=== PATIENT | female | born 1940 | race Caucasian/White ===

== ENCOUNTER → 2018-02-05 18:01 | Outpatient (CLI) | payer MEDICARE, SELFPAY ==
--- NOTE | 2018-02-05 18:01 | DT_ITS ---
This patient was seen during an EMR downtime February 05, 2018 - February 12, 2018. This patient may have a combination of paper and electronic documentation or all paper documentation. All documentation is viewable within the e-chart portion of [email or web address] for each patient visit.
[2018-02-08 17:31] LABS: Prothrombin Time (Protime)PT. 13.3 SECONDS (11.7-14.9)
== END ==
PROVIDERS: Family Provider Family Medicine; PCP Family Medicine; Visit Provider Family Medicine
DX: Z86.73 Personal history of transient ischemic attack (TIA), and cerebral infarction without residual deficits (principal)
CPT/HCPCS: 36415; 85610

== ENCOUNTER 2019-10-09 00:28 | Emergency (ER) | payer MEDICARE, SELFPAY ==
[2019-10-09 00:31] VITALS: BP 201/83; PULSE 69; RESP 13; TEMP 36.1; O2SAT 94; BMI 36.1
[2019-10-09 00:41] LABS: Bedside Glucose 49 mg/dL (70-110)
--- NOTE | 2019-10-09 00:58 | EKG12_ITS ---
Test Reason : CP Blood Pressure : / mmHG Vent. Rate : 059 BPM Atrial Rate : 059 BPM P-R Int : 190 ms QRS Dur : 096 ms QT Int : 484 ms P-R-T Axes : 082 007 059 degrees QTc Int : 479 ms Sinus bradycardia Otherwise normal ECG Confirmed by DANETTE ANDERSON ([id number]), photograph editor BILLY GILL ([id number]) on 10/11/2019 9:27:44 AM Referred By: FANG Confirmed By:DANETTE ANDERSON
--- NOTE | 2019-10-09 00:58 | RAD_ITS ---
STUDY: X-RAY CHEST REASON FOR EXAM: Female, 79 years old. HYPOGLYCEMIA -- DENIES ANY CHEST / BREATHING PROBLEMS TECHNIQUE: Single AP portable view of the chest. COMPARISON: None. FINDINGS: The lungs are clear and expanded. There is no demonstrated pleural abnormality. Normal size heart. Normal mediastinum and tony. Normal visualized pulmonary arteries. There is atherosclerotic tortuosity of the aortic arch and descending thoracic aorta. Normal visualized thoracic spine. There is degenerative osteoarthritis of the bilateral shoulders. There is a hiatal hernia measures 9 cm. RAD/Chest 1 View (Portable) IMPRESSION: There is a hiatal hernia measures 9 cm. Electronically Signed: Jassi Reddy, at 1:44 EST Tel , Service support ,
--- NOTE | 2019-10-09 00:59 | ED.DCSUM_ITS ---
History of Present Illness Chief Complaint: Hypoglycemia Narrative: Patient is a 79-year-old female who presents with low blood sugar. Son went to check on her before bed and noticed that she was not acting normally similar to when she has had hypoglycemia previously. They were unable to get her to take oral glucose so EMS was contacted. Her blood sugar was in the 40s. She received a D10 on arrival here due to a shortage of D50. She is now returning to baseline. Patient and family deny any recent illness. No recent fever, cough, vomiting, diarrhea. Patient has no complaints at this time except for generally not feeling well, generalized malaise. Past Medical History - Allergies and Home Meds Allergies/Adverse Reactions: Allergies meperidine HCl [From Demerol] Adverse Reaction (Verified 10/09/19 00:28) Nausea Primary Care Physician: Jihan Krishnamurthy [Primary Care Provider] - Past Medical History: - - Diabetes, hypertension, dementia Smoking Status: Former smoker Review of Systems All systems negative except as indicated General: Denies: Fever Eyes: Denies: Visual changes - bilaterally ENT: Denies: Bilateral ear pain Cardiovascular: Denies: Chest pain Respiratory: Denies: Dyspnea Gastrointestinal: Denies: Abdominal pain Genitourinary: Denies: Dysuria Musculoskeletal: Denies: Myalgias, Arthralgias Neurological: Denies: Headache Allergy: Denies: Uticaria Physical Exam Vital Signs/Narrative: Vital Signs Temp Pulse Resp BP Pulse Ox 10/09/19 00:31 96.9 F L 69 13 201/83 H 94 Inital Vital Signs reviewed: Yes General: Well nourished, Well developed Head: Normocephalic Eyes: EOMI ENT: Moist mucous membranes Neck: Supple Cardiovascular: Regular rate, Regular rhythm Respiratory: No distress, CTA bilaterally Abdomen: Soft, Nontender Skin: Normal color Neurological: Alert Psychological: Normal affect Diagnostic/Tx/Re-eval Impressions Chest X-Ray 10/09/19 00:58 IMPRESSION: There is a hiatal hernia measures 9 cm. Electronically Signed: Jassi Reddy, at 1:44 EST Tel , Service support , 10/09/19 00:58 Chest 1 View (Portable) [RAD] Stat Laboratory Results 10/09/19 10/09/19 10/09/19 00:33 00:45 00:45 WBC Cancelled Corrected WBC Cancelled RBC Cancelled Hgb Cancelled Hct Cancelled MCV Cancelled MCH Cancelled MCHC Cancelled RDW Std Deviation Cancelled RDW Coeff of Michael Cancelled Plt Count Cancelled MPV Cancelled Immature Gran % (Auto) Cancelled Neut % (Auto) Cancelled Lymph % (Auto) Cancelled [place] % (Auto) Cancelled Eos % (Auto) Cancelled Baso % (Auto) Cancelled Absolute Neuts (auto) Cancelled Absolute Lymphs (auto) Cancelled Total Counted Cancelled Neutrophils % (Manual) Cancelled Band Neutrophils % Cancelled Lymphocytes % (Manual) Cancelled Monocytes % (Manual) Cancelled Eosinophils % (Manual) Cancelled Basophils % (Manual) Cancelled Metamyelocytes % Cancelled Myelocytes % Cancelled Promyelocytes % Cancelled Blast Cells % Cancelled Plasma Cell % (Manual) Cancelled Other Cells % Cancelled Nucleated RBC % Cancelled Nucleated RBCs/100 WBC Cancelled Differential Comment Cancelled Diff Path Review Cancelled Hypersegmented Neuts Cancelled Atypical Lymphocytes Cancelled Reactive Lymphocytes Cancelled Smudge Cells Cancelled Toxic Granulation Cancelled Toxic Vacuolation Cancelled Dohle Bodies Cancelled Adan Rods Cancelled Platelet Estimate Cancelled Plt Morphology Comment Cancelled RBC Morphology Cancelled Polychromasia Cancelled Hypochromasia Cancelled Poikilocytosis Cancelled Basophilic Stippling Cancelled Anisocytosis Cancelled Microcytosis Cancelled Macrocytosis Cancelled Spherocytes Cancelled Sickle Cells Cancelled Target Cells Cancelled Tear Drop Cells Cancelled Ovalocytes Cancelled Stomatocytes Cancelled Ann-[place] Bodies Cancelled Kelsey Cells Cancelled Bite Cells Cancelled Crenated Cell Cancelled Acanthocytes (Spur) Cancelled Rouleaux Cancelled Schistocytes Cancelled Sodium Cancelled Potassium Cancelled Chloride Cancelled Carbon Dioxide Cancelled Anion Gap Cancelled BUN Cancelled Creatinine Cancelled Estim Creat Clear Calc Cancelled Est GFR (MDRD) Af Amer Cancelled Est GFR (MDRD) Non-Af Cancelled BUN/Creatinine Ratio Cancelled Glucose Cancelled Calcium Cancelled Urine Color Urine Clarity Urine pH Ur Specific [place] Urine Protein Urine Glucose (UA) Urine Ketones Urine Occult Blood Urine Nitrite Urine Bilirubin Urine Urobilinogen Ur Leukocyte Esterase Urine RBC Urine WBC Ur Squamous Epith Cells Amorphous Sediment Urine Bacteria Urine Mucus POC Glucose 49 L 10/09/19 10/09/19 10/09/19 01:18 01:37 01:37 WBC 13.4 H Corrected WBC RBC 5.21 Hgb 12.3 Hct 39.7 MCV 76.2 L MCH 23.6 L MCHC 31.0 L RDW Std Deviation 50.9 H RDW Coeff of Michael 18.6 H Plt Count 263 MPV 11.4 Immature Gran % (Auto) 0.800 Neut % (Auto) 82.4 H Lymph % (Auto) 10.0 L [place] % (Auto) 5.7 Eos % (Auto) 0.7 Baso % (Auto) 0.4 Absolute Neuts (auto) 11.0 H Absolute Lymphs (auto) 1.34 Total Counted Neutrophils % (Manual) Band Neutrophils % Lymphocytes % (Manual) Monocytes % (Manual) Eosinophils % (Manual) Basophils % (Manual) Metamyelocytes % Myelocytes % Promyelocytes % Blast Cells % Plasma Cell % (Manual) Other Cells % Nucleated RBC % 0 Nucleated RBCs/100 WBC Differential Comment Diff Path Review Hypersegmented Neuts Atypical Lymphocytes Reactive Lymphocytes Smudge Cells Toxic Granulation Toxic Vacuolation Dohle Bodies Adan Rods Platelet Estimate Plt Morphology Comment RBC Morphology Polychromasia Hypochromasia Poikilocytosis Basophilic Stippling Anisocytosis Microcytosis Macrocytosis Spherocytes Sickle Cells Target Cells Tear Drop Cells Ovalocytes Stomatocytes Ann-[place]akey Bodies Kelsey Cells Bite Cells Crenated Cell Acanthocytes (Spur) Rouleaux Schistocytes Sodium 137 Potassium 3.5 Chloride 104 Carbon Dioxide 26.0 Anion Gap 7 BUN 25 H Creatinine 1.27 H Estim Creat Clear Calc 27.10 Est GFR (MDRD) Af Amer 52 L Est GFR (MDRD) Non-Af 43 L BUN/Creatinine Ratio 19.7 Glucose 165 H Calcium 9.2 Urine Color Urine Clarity Urine pH Ur Specific [place] Urine Protein Urine Glucose (UA) Urine Ketones Urine Occult Blood Urine Nitrite Urine Bilirubin Urine Urobilinogen Ur Leukocyte Esterase Urine RBC Urine WBC Ur Squamous Epith Cells Amorphous Sediment Urine Bacteria Urine Mucus POC Glucose 179 H 10/09/19 01:52 WBC Corrected WBC RBC Hgb Hct MCV MCH MCHC RDW Std Deviation RDW Coeff of Michael Plt Count MPV Immature Gran % (Auto) Neut % (Auto) Lymph % (Auto) [place] % (Auto) Eos % (Auto) Baso % (Auto) Absolute Neuts (auto) Absolute Lymphs (auto) Total Counted Neutrophils % (Manual) Band Neutrophils % Lymphocytes % (Manual) Monocytes % (Manual) Eosinophils % (Manual) Basophils % (Manual) Metamyelocytes % Myelocytes % Promyelocytes % Blast Cells % Plasma Cell % (Manual) Other Cells % Nucleated RBC % Nucleated RBCs/100 WBC Differential Comment Diff Path Review Hypersegmented Neuts Atypical Lymphocytes Reactive Lymphocytes Smudge Cells Toxic Granulation Toxic Vacuolation Dohle Bodies Adan Rods Platelet Estimate Plt Morphology Comment RBC Morphology Polychromasia Hypochromasia Poikilocytosis Basophilic Stippling Anisocytosis Microcytosis Macrocytosis Spherocytes Sickle Cells Target Cells Tear Drop Cells Ovalocytes Stomatocytes Ann-Leakey Bodies [place] Cells Bite Cells Crenated Cell Acanthocytes (Spur) Rouleaux Schistocytes Sodium Potassium Chloride Carbon Dioxide Anion Gap BUN Creatinine Estim Creat Clear Calc Est GFR (MDRD) Af Amer Est GFR (MDRD) Non-Af BUN/Creatinine Ratio Glucose Calcium Urine Color Yellow Urine Clarity Clear Urine pH 6.5 Ur Specific [place] 1.010 Urine Protein 15 H Urine Glucose (UA) 100 H Urine Ketones Negative Urine Occult Blood 10 H Urine Nitrite Negative Urine Bilirubin Negative Urine Urobilinogen Normal Ur Leukocyte Esterase Negative Urine RBC 0-5 SEEN Urine WBC 0-5 SEEN Ur Squamous Epith Cells 0-5 SEEN Amorphous Sediment 1+ Urine Bacteria 0 SEEN Urine Mucus 0 SEEN POC Glucose - Medical Decision Making Patient was given D10 on arrival here. On reevaluation she is alert, answering questions appropriately and at baseline. EKG shows sinus bradycardia at a rate of 59. CBC BMP essentially unremarkable. Urinalysis does not show evidence of infection chest x-ray shows a hiatal hernia otherwise normal. Patient will be fed here. Initial repeat glucose normal. We will repeat glucose once prior to discharge after she is fed. Incidentally she does have severely elevated blood pressure here but is asymptomatic with this. Patient and family advised of the need to follow-up regarding blood pressure and hyperglycemia. They understand to return for new or worsening symptoms and patient was discharged. ED Disposition - Plan for ED Patient: Disposition: Home or Assisted Living Diagnosis: Hypoglycemia, Hypertension Instructions: HYPOGLYCEMIA, Oral Diabetic Medicine, HYPERTENSION, Established, Out of Control Referrals: Jihan Krishnamurthy [Primary Care Provider] -
[2019-10-09] MEDS: Dextrose 10%-Water 250 ML 999 ML IV (01:19)
[2019-10-09 01:31] LABS: Bedside Glucose 179 mg/dL (70-110)
[2019-10-09 01:45] LABS: Absolute Lymphocyte Count 1.34 X10^3/uL (0.83-4.51); Basophil# 0.06 X10^3/uL; Basophil% 0.4 % (0-1); Eosinophils% 0.7 % (0-5); Hematocrit 39.7 % (37-47); Hemoglobin 12.3 g/dL (12.0-15.0); Lymphocyte # 1.34 X10^3/ul (4.0); Mean Corpuscular Hgb 23.6 pg (27.0-32.0); Mean Corpuscular Volume 76.2 fL (81-99); Mean Platelet Vol. 11.4 fl (6.2-12.0); Monocyte# 0.76 X10^3/uL; Monocyte% 5.7 % (0-10); NRBC Flagged by Analyzer 0 % (0-5); Neutrophil # 11.02 X10^3/uL (2.7-7.7); Neutrophil % 82.4 % (47-70); Platelet Count 263 K/mm3 (150-450); RBC Distribution Width CV 18.6 % (11.6-14.6); RBC Distribution Width SD 50.9 fl (35.1-43.9); Red Blood Count 5.21 M/mm3 (4.2-5.4); White Blood Count 13.4 K/mm3 (4.4-11.0)
[2019-10-09 01:58] LABS: Bacteria 0 SEEN /hpf (None Seen); Mucous, Urine 0 SEEN /hpf (<or=2+)
[2019-10-09 02:00] LABS: Anion Gap 7 (5-15); BUN 25 mg/dL (7-18); BUN/Creat Ratio 19.7 RATIO (10-20); Calcium,Total 9.2 mg/dL (8.5-10.1); Chloride 104 mmol/L (98-107); Creatinine, Serum 1.27 mg/dL (0.55-1.02); EST Glomerular Filtration Rate 43 mL/min (>60); Est Glom Filt Rate - Afr Amer 52 mL/min (>60); Glucose 165 mg/dL (74-106); Potassium 3.5 mmol/L (3.5-5.1); Sodium Level 137 mmol/L (136-145)
[2019-10-09 02:01] LABS: Color, Urine Yellow (Yellow); Glucose, Dipstick 100 mg/dl (Normal); Ketone-Dipstick Negative (Negative); Leukocyte Esterase-Dipstick Negative /ul (Negative); Nitrite-Dipstick Negative (Negative); Occult Blood-Urine 10 /ul (Negative); Protein-Dipstick 15 mg/dl (Negative); Urine Bilirubin Dipstick Negative (Negative); Urine Clarity Clear (Clear); Urine Urobilinogen Normal (Normal); Urine pH 6.5 (5.0 - 8.0)
[2019-10-09 02:07] LABS: Amorphous Sediment 1+; Red Blood Cells-Urine 0-5 SEEN /hpf (0-5); Squamous Epithelial Cells - UA 0-5 SEEN /hpf (5-10); White Blood Cells 0-5 SEEN /hpf (0-5)
[2019-10-09 02:34] VITALS: BP 216/105; PULSE 70; RESP 21; O2SAT 98
[2019-10-09 03:01] LABS: Bedside Glucose 182 mg/dL (70-110)
[2019-10-09 03:19] VITALS: BP 203/83; PULSE 74; RESP 18; O2SAT 97
--- NOTE | 2019-10-09 03:20 | ED.RN ---
PT GIVEN WRITTEN AND VERBAL DISCHARGE INSTRUCTIONS AND HOME GOING PAPERWORK. PT DAUGHTER IN LAW VERBALIZES UNDERSTANDING. BP ELEVATED, DR. BRICENO AWARE. FAMILY EDUCATED TO FOLLOW UP WITH PRIMARY CARE REGARDING BP. PT IVS D/C AND COVERED WITH 2X2 GAUZE AND PAPER TAPE. ASSISTED IN DRESSING BY THIS RN AND PLACED IN WHEELCHAIR. WHEELED TO FAMILY VEHICLE.
== END 2019-10-09 03:21 | disposition home or self-care (01) ==
PROVIDERS: Emergency Provider Emergency Medicine; PCP Family Medicine
DX: E11.649 Type 2 diabetes mellitus with hypoglycemia without coma (principal); I10 Essential (primary) hypertension; F03.90 Unspecified dementia, unspecified severity, without behavioral disturbance, psychotic disturbance, mood disturbance, and anxiety; K44.9 Diaphragmatic hernia without obstruction or gangrene; Z88.5 Allergy status to narcotic agent; Z79.01 Long term (current) use of anticoagulants; Z79.4 Long term (current) use of insulin; Z79.899 Other long term (current) drug therapy; Z87.891 Personal history of nicotine dependence
CPT/HCPCS: 36415; 71045; 80048; 81001; 82962; 85025; 93005; 96374; 99285; A4216

== ENCOUNTER → 2020-05-20 13:11 | Outpatient (CLI) | payer MEDICARE, SELFPAY ==
[2020-05-20 18:25] LABS: Glucose, Dipstick Normal (Normal); Ketone-Dipstick Negative (Negative); Leukocyte Esterase-Dipstick 500 /ul (Negative); Nitrite-Dipstick Positive (Negative); Occult Blood-Urine 25 /ul (Negative); Protein-Dipstick 30 mg/dl (Negative); Specific Gravity, Urine 1.015 (1.002-1.030); Urine Bilirubin Dipstick Negative (Negative); Urine Urobilinogen Normal (Normal)
[2020-05-20 18:50] LABS: Color, Urine Yellow (Yellow); Urine Clarity Cloudy (Clear)
== END ==
PROVIDERS: PCP Family Medicine; Referring Provider Family Medicine; Visit Provider Family Medicine
DX: E10.9 Type 1 diabetes mellitus without complications (principal); Z87.440 Personal history of urinary (tract) infections; Z79.2 Long term (current) use of antibiotics; Z79.899 Other long term (current) drug therapy
CPT/HCPCS: 81002; 87077; 87086; 87088; 87186

== ENCOUNTER 2021-05-14 16:42 | Inpatient (IN) | payer MEDICARE, SELFPAY ==
[2021-05-14 16:43] VITALS: BP 161/76; PULSE 97; RESP 25; TEMP 37.6; O2SAT 93; BMI 31.6
--- NOTE | 2021-05-14 16:55 | EX.ED.DYSGE1 ---
HPI History of Present Illness Chief Complaint: General Illness Informant: patient and family Onset/Context/Timing Onset: Today (Unable to sit up and urinary frequency) Context: Sudden Onset Timing: Continuous Quality: Generalized weakness Per granddaughter Location: Generalized and Current Severity: Mild Maximum Severity: Mild Worsened by: Nothing Relieved by: Nothing Associated Symptoms Associated Symptoms: Frequency only and unable to sit up Narrative Narrative: Patient is an elderly woman with mild dementia who was brought to the emergency department by family because of inability to sit up which is abnormal for her and urinary frequency. She has had urinary tract infections in the past. She saw her primary care doctor 2 weeks ago and no abnormalities or abnormal tests were noted. Patient is on a anticoagulant due to DVT after orthopedic surgery 1 year ago. She also has history of GERD, hypertension and type 1 diabetes. Patient voices no complaints. Prior similar symptoms: Yes Recent Illness/Hospitalization: No [facility], [facility] Medical History (Updated 05/14/21 @ 19:[address] Vishal Rivas MD) 23-polyvalent pneumococcal polysaccharide vaccine indication of diabetes in patient 6 to 64 years of age Cholecystitis Dementia DVT (deep venous thrombosis) Home Medications Centrum Silver Tablet 1 tab PO DAILY 12/23/15 [History Last Taken Unknown] citalopram 40 mg PO DAILY 12/23/15 [History Last Taken Unknown] ibuprofen 600 mg PO 4X/DAY PRN 12/23/15 [History Last Taken Unknown] insulin glargine [Lantus (BKC)] 18 units SUBCUT QHS 12/23/15 [History Last Taken Unknown] insulin lispro [Humalog KwikPen] 18 unit SQ TID 12/23/15 [History Last Taken Unknown] lisinopril 20 mg PO DAILY 12/23/15 [History Last Taken Unknown] metoprolol tartrate 50 mg PO DAILY 12/23/15 [History Last Taken Unknown] apixaban 5 mg PO DAILY 10/09/19 [History Last Taken Unknown] oxybutynin chloride 10 mg PO DAILY 10/09/19 [History Last Taken Unknown] pantoprazole 40 mg PO DAILY 10/09/19 [History Last Taken Unknown] Allergy/AdvReac Type Severity Reaction Status Date / Time morphine Allergy Itching Verified 05/14/21 16:49 meperidine HCl [From Demerol] AdvReac Nausea Verified 05/14/21 16:49 Surgical History History of hip surgery History of total knee arthroplasty S/P cholecystectomy Social History (Updated 05/14/21 @ 16:[address] Vishal Rivas MD) household members: family Smoking Status: Former smoker alcohol intake: current Alcohol type: other substance use type: does not use ROS ROS ED Constitutional Constitutional ED: Denies chills, fever(s), subjective or sweats Eyes Eyes: Denies blurry vision, change in vision or diplopia ENT ENT ED: Denies ear pain, rhinorrhea or sore throat Cardiovascular Cardiovascular: Denies chest pain, orthopnea, palpitations or racing heartbeat Respiratory/Chest Respiratory/Chest: Denies cough, dyspnea, dyspnea on exertion, orthopnea or sputum Gastrointestinal Gastrointestinal: Reports nausea; Denies abdominal pain, constipation, diarrhea or vomiting Genitourinary Genitourinary ED: Reports urinary frequency; Denies dysuria or hematuria Musculoskeletal Musculoskeletal: Denies arthralgias, myalgias or neck pain Integumentary Denies rash Neurologic Neurologic: Reports weakness; Denies headache(s) or paresthesias Allergic/Immunologic Allergic/Immunologic ED: Denies mouth swelling, tongue swelling or urticaria EXAM Physical Exam Const Vital Signs: 05/14/21 16:43 05/14/21 17:39 05/14/21 18:44 Temperature 99.7 F H Temperature Source Oral Pulse Rate 97 79 Respiratory Rate 25 H 17 Respiratory Pattern Normal Blood Pressure 161/76 H 143/69 H Blood Pressure Mean 104 93 Pulse Ox 93 97 Oxygen Delivery Method Room Air Room Air Positive well nourished, well developed and obese General Appearance ED: well developed and NAD; Negative for cyanotic, diaphoretic or pallor Nutritional Appearance: obese HEENT Reports TM's clear and moist mucous membranes HEENT Narrative: Atraumatic normocephalic. Ears normal. Nares patent. Tympanic Membrane ED: Yes TM's clear Eyes PERRL and EOMs intact bilaterally General Eye ED: Negative for pale conjunctiva or scleral icterus Neck no lymphadenopathy, supple and no JVD Chest Wall inspection of chest normal Resp normal respiratory effort and clear to auscultation bilaterally Effort and Inspection: Negative for pain with movement Cardio regular rate, regular rhythm, S1 normal heart sound, S2 normal heart sound and no murmurs GI normal to inspection, nondistended, normoactive bowel sounds and non-tender Palpation: soft Back/Spine no CVA tenderness Cervical Spine: Negative for cervical spine tenderness Thoracic Spine / Upper Back: Negative for thoracic spinal tenderness or paraspinal muscle tenderness Extremity Negative for normal to inspection General Extremety ED: Negative for edema or tenderness General Extremity: Negative for edema Neuro No oriented x3, CN's II-XII intact bilaterally and no sensory deficits noted Neuro Narrative: Patient knew the month but not the year. Sensorium / Orientation: alert Motor Exam: strength 5/5 throughout Psych mental status grossly normal Skin no rashes or lesions noted and no wounds General Skin Exam: Negative for jaundice or pallor MDM MDM MDM Narrative Medical decision making narrative: 99.7 is a fever for an 81-year-old. She is tachypneic. With history of generalized weakness and frequency suspect UTI. Infectious work-up was initiated as well as metabolic. Will obtain straight catheter urine. BGT was obtained per nurse protocol. Lab Data Attestation: I reviewed the patient's lab results. Lab results narrative: White count is markedly elevated 24.8 thousand with shift. Comprehensive metabolic panel bill slight elevation in creatinine of 1.17. Glucose elevated 188. Patient does have type 1 diabetes. Lactate is normal. Urine is unremarkable however patient did urinate every 15 to 30 minutes and may give a false negative test. In light of her having an elevated white count generalized weakness with change in mental status and frequency suspect that her sources urine. Will treat with Rocephin. Urine culture was obtained. Hospitalist was paged for admission. Labs: Laboratory Results - last 24 hr 05/14/21 05/14/21 05/14/21 16:25 16:25 16:51 WBC 24.8 H RBC 5.20 Hgb 12.9 Hct 39.9 MCV 76.7 L MCH 24.8 L MCHC 32.3 RDW Std Deviation 50.1 H RDW Coeff of Michael 18.5 H Plt Count 224 MPV 11.7 Immature Gran % (Auto) 1.800 H Neut % (Auto) 89.8 H Lymph % (Auto) 3.3 L [place] % (Auto) 4.9 Eos % (Auto) 0.0 Baso % (Auto) 0.2 Absolute Neuts (auto) 22.3 H Absolute Lymphs (auto) 0.81 L Nucleated RBC % 0 Differential Comment SCANNED Sodium 134 L Potassium 3.4 L Chloride 102 Carbon Dioxide 26.0 Anion Gap 6 BUN 20 H Creatinine 1.17 H Estim Creat Clear Calc 29.83 Est GFR (MDRD) Af Amer 57 L Est GFR (MDRD) Non-Af 47 L BUN/Creatinine Ratio 17.1 Glucose 188 H Lactic Acid Calcium 9.1 Total Bilirubin 0.60 AST 14 L ALT 16 Alkaline Phosphatase 105 Total Protein 7.7 Albumin 3.1 L Globulin 4.6 H Albumin/Globulin Ratio 0.7 L Urine Color Urine Clarity Urine pH Ur Specific [place] Urine Protein Urine Glucose (UA) Urine Ketones Urine Occult Blood Urine Nitrite Urine Bilirubin Urine Urobilinogen Ur Leukocyte Esterase Urine RBC Urine WBC Ur Squamous Epith Cells Urine Bacteria Urine Mucus POC Glucose 181 H 05/14/21 05/14/21 16:55 17:03 WBC RBC Hgb Hct MCV MCH MCHC RDW Std Deviation RDW Coeff of Michael Plt Count MPV Immature Gran % (Auto) Neut % (Auto) Lymph % (Auto) [place] % (Auto) Eos % (Auto) Baso % (Auto) Absolute Neuts (auto) Absolute Lymphs (auto) Nucleated RBC % Differential Comment Sodium Potassium Chloride Carbon Dioxide Anion Gap BUN Creatinine Estim Creat Clear Calc Est GFR (MDRD) Af Amer Est GFR (MDRD) Non-Af BUN/Creatinine Ratio Glucose Lactic Acid 1.3 Calcium Total Bilirubin AST ALT Alkaline Phosphatase Total Protein Albumin Globulin Albumin/Globulin Ratio Urine Color Straw Urine Clarity Clear Urine pH 7.0 Ur Specific [place] 1.010 Urine Protein 15 H Urine Glucose (UA) 100 H Urine Ketones Negative Urine Occult Blood 25 H Urine Nitrite Negative Urine Bilirubin Negative Urine Urobilinogen Normal Ur Leukocyte Esterase 25 H Urine RBC 0-5 SEEN Urine WBC 0-5 SEEN Ur Squamous Epith Cells 0-5 SEEN Urine Bacteria RARE Urine Mucus 0 SEEN POC Glucose Discharge Plan Triage Chief Complaint: General Illness ED Provider: Vishal Rivas Dx/Rx/DC Orders Clinical Impression: Infectious encephalopathy, Urinary tract infection Prescriptions: No Action lisinopril 20 MG tablet 20 mg PO DAILY RF: 0 ibuprofen 600 MG tablet 600 mg PO 4X/DAY PRN (Reason: Pain) RF: 0 citalopram 40 MG tablet 40 mg PO DAILY RF: 0 metoprolol tartrate 25 MG tablet 50 mg PO DAILY RF: 0 Centrum Silver Tablet 1 tab PO DAILY RF: 0 insulin glargine [Lantus Solostar U-100 Insulin] 100 UNITS/ML Pen 18 units subcut QHS RF: 0 insulin lispro [Humalog KwikPen Insulin] 100 UNIT/ML Insuln.Pen 18 unit SQ TID RF: 0 pantoprazole 40 MG tablet,delayed release (DR/EC) 40 mg PO DAILY RF: 0 oxybutynin chloride 5 MG tablet 10 mg PO DAILY RF: 0 apixaban 5 MG tablet 5 mg PO DAILY RF: 0 Primary Care Provider: Jihan Krishnamurthy Referrals: Jihan Krishnamurthy DO [Primary Care Provider] - Disposition Disposition: Acute Care Hospital [facility]
[2021-05-14 16:56] LABS: Bedside Glucose 181 mg/dL (70-110)
[2021-05-14 17:24] LABS: Absolute Lymphocyte Count 0.81 X10^3/uL (0.83-4.51); Absolute Neutrophil Count 22.3 X10^3/uL (2.0-7.7); Basophil# 0.05 X10^3/uL; Basophil% 0.2 % (0-1); Hematocrit 39.9 % (37-47); Hemoglobin 12.9 g/dL (12.0-15.0); Lymphocyte # 0.81 X10^3/ul (0.83-4.51); Lymphocyte % 3.3 % (19-41); Mean Corp Hgb Conc 32.3 g/dL (32-36); Mean Corpuscular Hgb 24.8 pg (27.0-32.0); Mean Corpuscular Volume 76.7 fL (81-99); Mean Platelet Vol. 11.7 fl (6.2-12.0); Monocyte# 1.21 X10^3/uL; Monocyte% 4.9 % (0-10); NRBC Flagged by Analyzer 0 % (0-5); Neutrophil # 22.28 X10^3/uL (2.7-7.7); Neutrophil % 89.8 % (47-70); POSITIVE DIFFERENTIAL YES; Platelet Count 224 K/mm3 (150-450); RBC Distribution Width CV 18.5 % (11.6-14.6); RBC Distribution Width SD 50.1 fl (35.1-43.9); White Blood Count 24.8 K/mm3 (4.4-11.0)
[2021-05-14 17:26] LABS: Differential Indicated SCAN CRITERIA MET
[2021-05-14 17:33] LABS: Color, Urine Straw (Yellow); Glucose, Dipstick 100 mg/dl (Normal); Ketone-Dipstick Negative (Negative); Leukocyte Esterase-Dipstick 25 /ul (Negative); Mucous, Urine 0 SEEN /hpf (<or=2+); Nitrite-Dipstick Negative (Negative); Occult Blood-Urine 25 /ul (Negative); Protein-Dipstick 15 mg/dl (Negative); Urine Bilirubin Dipstick Negative (Negative); Urine Clarity Clear (Clear); Urine Urobilinogen Normal (Normal)
[2021-05-14 17:39] LABS: ALB/GLOB Ratio 0.7 RATIO (0.9-2.4); AST(SGOT) 14 U/L (15-37); Alanine Aminotransfer ALT/SGPT 16 U/L (13-56); Albumin, Serum 3.1 g/dL (3.2-5.0); Alkaline Phosphatase 105 U/L (45-117); Anion Gap 6 (5-15); BUN 20 mg/dL (7-18); BUN/Creat Ratio 17.1 RATIO (10-20); Calcium,Total 9.1 mg/dL (8.5-10.1); Chloride 102 mmol/L (98-107); Creatinine, Serum 1.17 mg/dL (0.55-1.02); EST Glomerular Filtration Rate 47 mL/min (>60); Est Glom Filt Rate - Afr Amer 57 mL/min (>60); Estimated Creatinine Clearance 29.83 ml/min; Globulin 4.6 g/dL (2.2-4.2); Glucose 188 mg/dL (74-106); Potassium 3.4 mmol/L (3.5-5.1); Protein, Total 7.7 g/dL (6.4-8.2); Sodium Level 134 mmol/L (136-145)
[2021-05-14 17:45] LABS: Red Blood Cells-Urine 0-5 SEEN /hpf (0-5); White Blood Cells 0-5 SEEN /hpf (0-5)
[2021-05-14 17:46] LABS: Bacteria RARE /hpf (None Seen); Squamous Epithelial Cells - UA 0-5 SEEN /hpf (5-10)
[2021-05-14 17:58] LABS: Differential Comment SCANNED
[2021-05-14 18:10] LABS: Lactic Acid 1.3 mmol/L (0.4-1.9)
[2021-05-14 18:44] VITALS: BP 143/69; PULSE 79; RESP 17; O2SAT 97
[2021-05-14] MEDS: Ceftriaxone 1 GM/50 ML BAG IV (20:27)
[2021-05-14 20:28] VITALS: BP 143/69; PULSE 87; RESP 15; TEMP 36.8; O2SAT 96
--- NOTE | 2021-05-14 20:59 | HP.PCM.HOS_ITS ---
HPI - General General Date of Admission: 05/14/21 HPI Narrative ESMER ZAPATA, is a 81 F who presents from home with worsening confusion. She is unable to provide any significant history most of the history was obtained through chart review and discussion with the family was at bedside. The ohabgwnu-xm-juz states that she is normally independent with some assistance at home but today had difficulty interacting with Occupational Therapy and physical therapy and as the day progressed she seemed to be getting weaker and weaker and then this evening she tried to sit her up and she just fell back onto the couch. She also noticed that she has been urinating much more frequently today which is the same thing that happened on her previous UTIs. No fevers or chills but in the ER she was found to have a leukocytosis of 24.8. UA is unimpressive however the thought is that she has been urinating so frequently that she has been sort of washing herself out, UA with only 25 leukocyte esterase and rare bacteria. Urine culture was obtained in the ER and she was given a dose of Rocephin. [facility] Medical History (Updated 05/14/21 @ 19:[address] Vishal Rivas MD) 23-polyvalent pneumococcal polysaccharide vaccine indication of diabetes in patient 6 to 64 years of age Cholecystitis Dementia DVT (deep venous thrombosis) Home Medications insulin glargine [Lantus (BKC)] 18 units SUBCUT QHS 12/23/15 [History Last Taken 05/13/21] insulin lispro [Humalog KwikPen] 18 unit SQ TIDCM 12/23/15 [History Last Taken 05/14/21] lisinopril 20 mg PO DAILY 12/23/15 [History Last Taken 05/14/21] apixaban 5 mg PO DAILY 10/09/19 [History Last Taken 05/14/21] metoprolol succinate 50 mg PO DAILY 05/14/21 [History Last Taken 05/14/21] osquirlq-eycbkio-mivx-lutein [Centrum Silver Ultra Women's] 1 tab PO DAILY 05/14/21 [History Last Taken 05/14/21] omeprazole 40 mg PO BID 05/14/21 [History Last Taken 05/14/21] quetiapine 25 mg PO QHS 05/14/21 [History Last Taken 05/13/21] Allergy/AdvReac Type Severity Reaction Status Date / Time morphine Allergy Itching Verified 05/14/21 16:49 meperidine HCl [From Demerol] AdvReac Nausea Verified 05/14/21 16:49 Family History (Updated 05/14/21 @ 21:[address] Paco Coombs MD) Other Diabetes Heart disease Surgical History History of hip surgery History of total knee arthroplasty S/P cholecystectomy Social History (Updated 05/14/21 @ 16:[address] Vishal Rivas MD) household members: family Smoking Status: Former smoker alcohol intake: current Alcohol type: other substance use type: does not use ROS Constitutional Constitutional: Denies chills, fatigue, fever(s) or malaise Eyes Eyes: Denies blurry vision ENT HEENT: Denies headache(s) or nasal discharge Cardiovascular Cardiovascular: Denies chest pain, dyspnea on exertion or syncope Respiratory/Chest Respiratory/Chest: Denies cough, shortness of breath at rest or shortness of breath with exertion Gastrointestinal Gastrointestinal: Reports abdominal pain; Denies constipation, diarrhea, nausea or vomiting Genitourinary Genitourinary: Reports urinary frequency; Denies dysuria Neurologic Neurologic: Denies focal weakness, numbness or tremor(s) Psychiatric Psychiatric: Denies anxiety or depression Vital Signs Vital Signs Vital Signs: 05/14/21 16:43 05/14/21 17:39 05/14/21 18:44 Temperature 99.7 F H Temperature Source Oral Pulse Rate 97 79 Respiratory Rate 25 H 17 Respiratory Pattern Normal Blood Pressure 161/76 H 143/69 H Blood Pressure Mean 104 93 Pulse Ox 93 97 Oxygen Delivery Method Room Air Room Air 05/14/21 20:28 Temperature 98.3 F Temperature Source Temporal Pulse Rate 87 Respiratory Rate 15 Respiratory Pattern Blood Pressure 143/69 H Blood Pressure Mean 93 Pulse Ox 96 Oxygen Delivery Method Room Air Weight Weight: 173 lb 1.006 oz Body Mass Index (BMI) 31.6 Physical Exam Const alert, oriented x3 and no apparent distress General Appearance: cooperative HEENT normocephalic and moist oral mucous membranes Eyes PERRL, EOMs intact bilaterally and conjunctivae normal Neck supple and no JVD Resp normal respiratory effort, no retractions, no use of accessory muscles and clear to auscultation bilaterally Auscultation: Negative for crackles, rales, rhonchi or wheezes Cardio regular rate, regular rhythm, S1 normal heart sound, S2 normal heart sound and no murmurs GI soft to palpation and non-distended; Negative for hepatosplenomegaly Palpation: tender LLQ and RLQ Extremity no clubbing, cyanosis or edema Skin no rashes or lesions noted Neuro no focal motor deficits and no sensory deficits noted Psych affect normal Appearance: appropriate Results Lab / Micro Data Result Diagrams: 05/14/21 16:25 05/14/21 16:25 Labs: Laboratory Results - last 24 hr 05/14/21 16:25: WBC 24.8 H, RBC 5.20, Hgb 12.9, Hct 39.9, MCV 76.7 L, MCH 24.8 L , MCHC 32.3, RDW Std Deviation 50.1 H, RDW Coeff of Michael 18.5 H, Plt Count 224, MPV 11.7, Immature Gran % (Auto) 1.800 H, Neut % (Auto) 89.8 H, Lymph % (Auto) 3.3 L, [place] % (Auto) 4.9, Eos % (Auto) 0.0, Baso % (Auto) 0.2, Absolute Neuts (auto) 22.3 H, Absolute Lymphs (auto) 0.81 L, Nucleated RBC % 0, Differential Comment SCANNED 05/14/21 16:25: Sodium 134 L, Potassium 3.4 L, Chloride 102, Carbon Dioxide 26.0, Anion Gap 6, BUN 20 H, Creatinine 1.17 H, Estim Creat Clear Calc 29.83, Est GFR (MDRD) Af Amer 57 L, Est GFR (MDRD) Non-Af 47 L, BUN/Creatinine Ratio 17.1, Glucose 188 H, Calcium 9.1, Total Bilirubin 0.60, AST 14 L, ALT 16, Alkaline Phosphatase 105, Total Protein 7.7, Albumin 3.1 L, Globulin 4.6 H, Albumin/Globulin Ratio 0.7 L 05/14/21 16:51: POC Glucose 181 H 05/14/21 16:55: Urine Color Straw, Urine Clarity Clear, Urine pH 7.0, Ur Specific [place] 1.010, Urine Protein 15 H, Urine Glucose (UA) 100 H, Urine Ketones Negative, Urine Occult Blood 25 H, Urine Nitrite Negative, Urine Bilirubin Negative, Urine Urobilinogen Normal, Ur Leukocyte Esterase 25 H, Urine RBC 0-5 SEEN, Urine WBC 0-5 SEEN, Ur Squamous Epith Cells 0-5 SEEN, Urine Bacteria RARE, Urine Mucus 0 SEEN 05/14/21 17:03: Lactic Acid 1.3 Assessment & Plan Assessment/Plan (1) Infectious encephalopathy: (2) Urinary tract infection: PLAN: 1. Metabolic encephalopathy secondary to UTI/dementia -Urine cultures pending, will continue with Rocephin -Does have baseline dementia so we will continue with her Seroquel for any owning at night -PT/OT for evaluation of possible placement -Family will discuss whether or not for her to get the [place] & [place] vaccine prior to discharge 2. HTN/HLD -Blood pressure stable -We will continue with her lisinopril and metoprolol 3. DM2 -Blood sugars are stable, will continue with her home insulin -Accu-Cheks AC at bedtime with sliding scale insulin -Carb controlled diet 4. GERD -Stable -Continue with PPI 5. History of DVT post orthopedic surgery -This happened about a year ago -Continue with Eliquis, recommend following up with hematology as an outpatient for possible cessation of anticoagulation as it is likely provoked DVT: Eliquis Charges/Coding Visit Charges OBSV E&M: 74412 Initial observation care L3
[2021-05-14] MEDS: Ondansetron 4 MG/2 ML Vial IV (21:00)
[2021-05-14 21:03] VITALS: TEMP 37.6
--- NOTE | 2021-05-14 21:05 | ED.RN ---
FAMILY CAME TO THE NURSES STATION AND NOTIFIED STAFF THE PT WAS CHOKING ON HER FOOD. THIS NURSE INTO THE ROOM PT HAD VOMITED. PT C/O FEELING NAUSEATED. FAMILY NOTIFIED TO NOT GIVE THE PT ANYTHING FURTHER TO EAT OR DRINK. DR SANTOS HERRMANN ORDER OBTAINED AND GIVEN
[2021-05-14 22:19] VITALS: BMI 31.1
[2021-05-14 22:21] VITALS: BP 156/61; PULSE 99; RESP 18; TEMP 38.1; O2SAT 96
[2021-05-14 22:41] LABS: Bedside Glucose 270 mg/dL (70-110)
[2021-05-14] MEDS: QUEtiapine 25 MG Tablet PO (23:10)
[2021-05-14] MEDS: Pantoprazole Sodium 40 MG Tablet PO (23:10)
[2021-05-14] MEDS: Insulin Lispro 100 UNIT/ML INSULN.PEN SC (23:18)
[2021-05-14 23:25] VITALS: O2SAT 96
[2021-05-14 23:51] LABS: Bedside Glucose 263 mg/dL (70-110)
[2021-05-15] VITALS (7 sets, daily range): BP systolic 109–144; BP diastolic 53–69; PULSE 82–98; RESP 16–20; TEMP 37–38.2; O2SAT 92–97
[2021-05-15] MEDS: Acetaminophen 325 MG Tablet 650 MG PO ×2 (04:16→21:10)
[2021-05-15 06:27] LABS: Absolute Lymphocyte Count 1.78 X10^3/uL (0.83-4.51); Absolute Neutrophil Count 23.3 X10^3/uL (2.0-7.7); Basophil# 0.06 X10^3/uL; Basophil% 0.2 % (0-1); Hematocrit 36.2 % (37-47); Hemoglobin 10.8 g/dL (12.0-15.0); Lymphocyte # 1.78 X10^3/ul (0.83-4.51); Lymphocyte % 6.6 % (19-41); Mean Corp Hgb Conc 29.8 g/dL (32-36); Mean Corpuscular Hgb 24.3 pg (27.0-32.0); Mean Corpuscular Volume 81.5 fL (81-99); Mean Platelet Vol. 11.6 fl (6.2-12.0); Monocyte# 1.36 X10^3/uL; Monocyte% 5.1 % (0-10); NRBC Flagged by Analyzer 0 % (0-5); Neutrophil # 23.26 X10^3/uL (2.7-7.7); Neutrophil % 86.5 % (47-70); POSITIVE DIFFERENTIAL YES; Platelet Count 172 K/mm3 (150-450); RBC Distribution Width CV 18.9 % (11.6-14.6); RBC Distribution Width SD 56.2 fl (35.1-43.9); Red Blood Count 4.44 M/mm3 (4.2-5.4); White Blood Count 26.9 K/mm3 (4.4-11.0)
[2021-05-15 06:31] LABS: Differential Indicated SCAN CRITERIA MET
[2021-05-15 06:50] LABS: Anion Gap 8 (5-15); BUN 24 mg/dL (7-18); BUN/Creat Ratio 15.8 RATIO (10-20); Calcium,Total 8.5 mg/dL (8.5-10.1); Chloride 102 mmol/L (98-107); Creatinine, Serum 1.52 mg/dL (0.55-1.02); EST Glomerular Filtration Rate 35 mL/min (>60); Est Glom Filt Rate - Afr Amer 42 mL/min (>60); Estimated Creatinine Clearance 22.96 ml/min; Glucose 226 mg/dL (74-106); Potassium 3.7 mmol/L (3.5-5.1); Sodium Level 133 mmol/L (136-145)
[2021-05-15] MEDS: Metoprolol(XL)Succ 50 MG Tablet PO (09:22)
[2021-05-15] MEDS: APIXABAN 5 MG TABLET PO (09:22)
[2021-05-15] MEDS: Pantoprazole Sodium 40 MG Tablet PO ×2 (09:22→21:10)
[2021-05-15] MEDS: Lisinopril 20 MG Tablet PO (09:23)
[2021-05-15] MEDS: Insulin Lispro 100 UNIT/ML INSULN.PEN 18 UNIT SC ×2 (09:28→13:18)
[2021-05-15] MEDS: Insulin Lispro 100 UNIT/ML INSULN.PEN SC ×2 (09:28→13:19)
[2021-05-15 09:35] LABS: Bedside Glucose 207 mg/dL (70-110)
--- NOTE | 2021-05-15 12:30 | PN.HOSP_ITS ---
Subjective Subjective Patient seen and examined. She was admitted with a complaint of altered mental status and found to have UTI. She has been managed for urinary tract infection. She was alert today and oriented x3. She had no active complaints and denied any fever, chills, nausea vomiting or difficulty with urination. Review of systems otherwise negative. She has remained hemodynamically stable. Objective Data Objective Data Vital Signs: Vital Signs Temp Pulse Resp BP Pulse Ox 98.8 F 82 18 116/57 L 93 05/15/21 09:29 05/15/21 09:29 05/15/21 09:29 05/15/21 09:29 05/15/21 09:29 Oxygen Delivery Method Room Air Weight: 170 lb 6.677 oz Body Mass Index (BMI) 31.1 Intake & Output: Intake and Output for Last 24 Hours 05/13/21 05/14/21 05/15/21 23:59 23:59 23:59 Intake Total 50 / 50 200 / 200 Output Total 500 / 500 Balance 50 / 50 -300 / -300 Lab / Micro Data Result Diagrams: 05/15/21 06:15 05/15/21 06:15 Labs: Laboratory Results - last 24 hr 05/14/21 16:25: WBC 24.8 H, RBC 5.20, Hgb 12.9, Hct 39.9, MCV 76.7 L, MCH 24.8 L , MCHC 32.3, RDW Std Deviation 50.1 H, RDW Coeff of Michael 18.5 H, Plt Count 224, MPV 11.7, Immature Gran % (Auto) 1.800 H, Neut % (Auto) 89.8 H, Lymph % (Auto) 3.3 L, [place] % (Auto) 4.9, Eos % (Auto) 0.0, Baso % (Auto) 0.2, Absolute Neuts (auto) 22.3 H, Absolute Lymphs (auto) 0.81 L, Nucleated RBC % 0, Differential Comment SCANNED 05/14/21 16:25: Sodium 134 L, Potassium 3.4 L, Chloride 102, Carbon Dioxide 26 .0, Anion Gap 6, BUN 20 H, Creatinine 1.17 H, Estim Creat Clear Calc 29.83, Est GFR (MDRD) Af Amer 57 L, Est GFR (MDRD) Non-Af 47 L, BUN/Creatinine Ratio 17.1, Glucose 188 H, Calcium 9.1, Total Bilirubin 0.60, AST 14 L, ALT 16, Alkaline Phosphatase 105, Total Protein 7.7, Albumin 3.1 L, Globulin 4.6 H, Albumin/Globulin Ratio 0.7 L 05/14/21 16:51: POC Glucose 181 H 05/14/21 16:55: Urine Color Straw, Urine Clarity Clear, Urine pH 7.0, Ur Specific [place] 1.010, Urine Protein 15 H, Urine Glucose (UA) 100 H, Urine Ketones Negative, Urine Occult Blood 25 H, Urine Nitrite Negative, Urine Bilirubin Negative, Urine Urobilinogen Normal, Ur Leukocyte Esterase 25 H, Urine RBC 0-5 SEEN, Urine WBC 0-5 SEEN, Ur Squamous Epith Cells 0-5 SEEN, Urine Bacteria RARE, Urine Mucus 0 SEEN 05/14/21 17:03: Lactic Acid 1.3 05/14/21 22:34: POC Glucose 270 H 05/14/21 23:08: POC Glucose 263 H 05/15/21 06:15: WBC 26.9 H, RBC 4.44, Hgb 10.8 L, Hct 36.2 L, MCV 81.5 D, MCH 24.3 L, MCHC 29.8 L D, RDW Std Deviation 56.2 H, RDW Coeff of Michael 18.9 H, Plt Count 172, MPV 11.6, Immature Gran % (Auto) 1.600 H, Neut % (Auto) 86.5 H, Lymph % (Auto) 6.6 L, [place] % (Auto) 5.1, Eos % (Auto) 0.0, Baso % (Auto) 0.2, Absolute Neuts (auto) 23.3 H, Absolute Lymphs (auto) 1.78, Nucleated RBC % 0 05/15/21 06:15: Sodium 133 L, Potassium 3.7, Chloride 102, Carbon Dioxide 23.0, Anion Gap 8, BUN 24 H, Creatinine 1.52 H, Estim Creat Clear Calc 22.96, Est GFR (MDRD) Af Amer 42 L, Est GFR (MDRD) Non-Af 35 L, BUN/Creatinine Ratio 15.8, Glucose 226 H, Calcium 8.5 05/15/21 09:20: POC Glucose 207 H Micro: Microbiology 05/14/21 20:24 Nasal Secretion SARS-CoV-2 Antigen (Rapid) - Final Physical Exam Const alert, oriented x3 and no apparent distress Exam Limitations: no limitations HEENT head/scalp atraumatic Head and Scalp: normocephalic Mouth: dry mucous membranes Eyes PERRL, EOMs intact bilaterally and conjunctivae normal Neck no lymphadenopathy Resp normal respiratory effort, no retractions, no use of accessory muscles and clear to auscultation bilaterally Cardio regular rate, regular rhythm, S1 normal heart sound, S2 normal heart sound and no murmurs GI normal to inspection, nondistended, normoactive bowel sounds, soft to palpation, non-tender and non-distended Extremity normal to inspection, full ROM and no clubbing, cyanosis or edema Peripheral Pulses: Yes pulses 2+ throughout Skin no rashes or lesions noted Assessment & Plan Assessment/Plan (1) Infectious encephalopathy: (2) Urinary tract infection: PLAN: #Acute metabolic encephalopathy due to UTI * patient more alert and communicative today. * on IV rocephin ; wbc today is up to 26.9 * urine culture pending. * #UTI: As above #Hypertension: On lisinopril and metoprolol #Type 2 diabetes mellitus: On lantus 18 units qhs. On insulin sliding scale. Checks AC at bedtime. #GERD: PPI #History of postop DVT * This happened about a year ago after she had an orthopedic surgery done. * On Eliquis. * Follow-up with hematology on outpatient basis. * #Dementia: on catalina. PT.OT on board. DVT prophylaxis: on eliquis Charges/Coding Visit Charges Inpatient E&M: 56458 Subs Hosp L2
[2021-05-15 12:46] LABS: Bedside Glucose 163 mg/dL (70-110)
--- NOTE | 2021-05-15 14:17 | CASEMGMT ---
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 Francisco said that he moved into patient's home to care for her and the home is a one story ranch. He reports his fiance' is with the patient 27/03. Patient has a walker, wheelchair, bedside commode, grab bars and shower chairs. Patient's PCP is dr. Krishnamurthy and patient's pharmacy is [facility] in [place]. Francisco reports that they have home health aide that comes in 2-3 days a week to give patient a shower and then his fiance gives her a shower 2 times a week. Patient receives PT/OT and RN services through [facility]. They are in the home 4x a week. Patient has been to [facility] in the past and Francisco was not impressed with their rehab program. Francisco said that they would like to take patient home unless it is absolutely necessary for her to go somewhere. He reports they do exercises with patient daily. Patient is able to dress herself, go to the bathroom and put on her own shoes. Patient also gets up and uses a walker but occasionally will not use walker for short distances such as from the bedroom to living room. Francisco said that they would like to take patient home unless she need more rehab then they can provide. He stated he would look at [facility] SNF list and BRIGIDA agreed to put it in an envelope at the RN's station. Francisco said that he doesn't want his mother to see it and worry. Francisco inquired about recommendations for SNF and this play writer and this play writer said that this play writer can NOT make recommendations however the list has Star Ratings for his review. BRIGIDA provided list to RN station on MS3. Plan: To be Determined Rita NGUYEN
[2021-05-15 18:46] LABS: Bedside Glucose 86 mg/dL (70-110)
[2021-05-15] MEDS: 0.9% Saline Lock 10 ML Syringe IV (21:10)
[2021-05-15] MEDS: Ceftriaxone 1 GM/50 ML BAG IV (21:10)
[2021-05-15] MEDS: QUEtiapine 25 MG Tablet PO (21:10)
[2021-05-15 21:25] LABS: Bedside Glucose 143 mg/dL (70-110)
[2021-05-16 03:24] VITALS: BP 127/55; PULSE 86; RESP 16; TEMP 37.2; O2SAT 94
[2021-05-16 06:59] LABS: Absolute Lymphocyte Count 1.56 X10^3/uL (0.83-4.51); Absolute Neutrophil Count 17.5 X10^3/uL (2.0-7.7); Basophil# 0.04 X10^3/uL; Basophil% 0.2 % (0-1); Eosinophil# 0.18 X10^3/uL; Eosinophils% 0.9 % (0-5); Hematocrit 32.7 % (37-47); Hemoglobin 10.8 g/dL (12.0-15.0); Lymphocyte # 1.56 X10^3/ul (0.83-4.51); Lymphocyte % 7.5 % (19-41); Mean Corpuscular Hgb 24.8 pg (27.0-32.0); Monocyte# 1.22 X10^3/uL; Monocyte% 5.9 % (0-10); NRBC Flagged by Analyzer 0 % (0-5); Neutrophil # 17.49 X10^3/uL (2.7-7.7); Neutrophil % 84.4 % (47-70); Platelet Count 163 K/mm3 (150-450); RBC Distribution Width CV 18.4 % (11.6-14.6); RBC Distribution Width SD 49.9 fl (35.1-43.9); Red Blood Count 4.36 M/mm3 (4.2-5.4); White Blood Count 20.7 K/mm3 (4.4-11.0)
[2021-05-16 07:19] LABS: Anion Gap 9 (5-15); BUN 37 mg/dL (7-18); BUN/Creat Ratio 20.2 RATIO (10-20); Calcium,Total 8.7 mg/dL (8.5-10.1); Chloride 100 mmol/L (98-107); Creatinine, Serum 1.83 mg/dL (0.55-1.02); EST Glomerular Filtration Rate 28 mL/min (>60); Est Glom Filt Rate - Afr Amer 34 mL/min (>60); Estimated Creatinine Clearance 19.07 ml/min; Glucose 190 mg/dL (74-106); Sodium Level 133 mmol/L (136-145)
--- NOTE | 2021-05-16 08:20 | PCS.PANDOC ---
PANDEMIC DOCUMENTATION INITIATED: Date: 05/14/2021 Time: 6
[2021-05-16] MEDS: Insulin Lispro 100 UNIT/ML INSULN.PEN 18 UNIT SC ×2 (09:18→12:46)
[2021-05-16] MEDS: Insulin Lispro 100 UNIT/ML INSULN.PEN SC ×3 (09:18→21:28)
[2021-05-16 09:19] VITALS: PULSE 101
[2021-05-16] MEDS: Lisinopril 20 MG Tablet PO (09:19)
[2021-05-16] MEDS: Pantoprazole Sodium 40 MG Tablet PO ×2 (09:19→21:28)
[2021-05-16] MEDS: APIXABAN 5 MG TABLET PO (09:19)
[2021-05-16] MEDS: Metoprolol(XL)Succ 50 MG Tablet PO (09:19)
[2021-05-16 09:20] VITALS: BP 124/65; PULSE 101; RESP 18; TEMP 37.8; O2SAT 93
[2021-05-16 09:26] LABS: Bedside Glucose 270 mg/dL (70-110)
--- NOTE | 2021-05-16 12:04 | PN.HOSP_ITS ---
Subjective Subjective Patient seen and examined. She was lying comfortably in bed and had no complaints. REview of systems otherwise negative. She is febrile this morning, with temp of 100F, and is also tachycardic. Objective Data Objective Data Vital Signs: Vital Signs Temp Pulse Resp BP Pulse Ox 100.0 F H 101 H 18 124/65 H 93 05/16/21 09:20 05/16/21 09:20 05/16/21 09:20 05/16/21 09:20 05/16/21 09:20 Oxygen Delivery Method Room Air Weight: 170 lb 6.677 oz Body Mass Index (BMI) 31.1 Intake & Output: Intake and Output for Last 24 Hours 05/14/21 05/15/21 05/16/21 23:59 23:59 23:59 Intake Total 50 / 50 490 / 490 Output Total 500 / 500 Balance 50 / 50 -10 / -10 Lab / Micro Data Result Diagrams: 05/16/21 05:45 05/16/21 05:45 Labs: Laboratory Results - last 24 hr 05/15/21 12:42: POC Glucose 163 H 05/15/21 17:12: POC Glucose 86 05/15/21 21:21: POC Glucose 143 H 05/16/21 05:45: WBC 20.7 H, RBC 4.36, Hgb 10.8 L, Hct 32.7 L, MCV 75.0 L D, MCH 24.8 L, MCHC 33.0 D, RDW Std Deviation 49.9 H, RDW Coeff of Michael 18.4 H, Plt Count 163, MPV TNP, Immature Gran % (Auto) 1.100 H, Neut % (Auto) 84.4 H, Lymph % (Auto) 7.5 L, [place] % (Auto) 5.9, Eos % (Auto) 0.9, Baso % (Auto) 0.2, Absolute Neuts (auto) 17.5 H, Absolute Lymphs (auto) 1.56, Nucleated RBC % 0 05/16/21 05:45: Sodium 133 L, Potassium 4.0, Chloride 100, Carbon Dioxide 24.0, Anion Gap 9, BUN 37 H, Creatinine 1.83 H, Estim Creat Clear Calc 19.07, Est GFR (MDRD) Af Amer 34 L, Est GFR (MDRD) Non-Af 28 L, BUN/Creatinine Ratio 20.2 H, Glucose 190 H, Calcium 8.7 05/16/21 09:14: POC Glucose 270 H Micro: Microbiology 05/14/21 16:55 Urine, Clean Catch Urine Culture - Preliminary Culture exhibits no growth. 05/14/21 20:24 Nasal Secretion SARS-CoV-2 Antigen (Rapid) - Final Physical Exam Const alert, oriented x3 and no apparent distress General Appearance: cooperative Exam Limitations: no limitations Nutritional Appearance: cachectic HEENT normocephalic and head/scalp atraumatic Head and Scalp: normocephalic Eyes PERRL, EOMs intact bilaterally and conjunctivae normal Neck no lymphadenopathy, supple and no JVD Resp normal respiratory effort, no retractions, no use of accessory muscles and clear to auscultation bilaterally Auscultation: Negative for crackles, rales, rhonchi or wheezes Cardio regular rate, regular rhythm, S1 normal heart sound, S2 normal heart sound and no murmurs GI normal to inspection, nondistended, normoactive bowel sounds, soft to palpation, non-tender and non-distended; Negative for hepatosplenomegaly Palpation: tender LLQ and RLQ Extremity normal to inspection, full ROM and no clubbing, cyanosis or edema Peripheral Pulses: Yes pulses 2+ throughout Skin no rashes or lesions noted Neuro oriented x3, no focal motor deficits and no sensory deficits noted Sensorium / Orientation: awake Psych affect normal Appearance: appropriate Assessment & Plan Assessment/Plan (1) Infectious encephalopathy: (2) Urinary tract infection: PLAN: #Acute metabolic encephalopathy due to UTI * encephalopathy has largely resolved. * wbc is down to 20.7 today. * on IV rocephin * urine and blood cultures pending * * #Sepsis due to UTI: As above. SIRS criteria is 2/4, with fever and tachycardia, with UTI as source of infection. #Hypertension: On lisinopril and metoprolol #Type 2 diabetes mellitus: On lantus 18 units qhs. On insulin sliding scale. Checks AC at bedtime. #GERD: on pantoprazole #History of postop DVT * This happened about a year ago after she had an orthopedic surgery done. * On Eliquis. * Follow-up with hematology on outpatient basis. * #Dementia: on seroquel. PT.OT on board. DVT prophylaxis: on eliquis Charges/Coding Visit Charges Inpatient E&M: 44563 Subs Hosp L3
[2021-05-16 13:02] LABS: Bedside Glucose 194 mg/dL (70-110)
[2021-05-16 15:15] VITALS: BP 130/56; PULSE 99; RESP 18; TEMP 37.4; O2SAT 95
[2021-05-16] MEDS: Acetaminophen 325 MG Tablet 650 MG PO (15:21)
[2021-05-16 17:25] LABS: Bedside Glucose 43 mg/dL (70-110)
[2021-05-16 17:25] LABS: Bedside Glucose 47 mg/dL (70-110)
[2021-05-16 17:51] LABS: Bedside Glucose 107 mg/dL (70-110)
[2021-05-16] MEDS: QUEtiapine 25 MG Tablet PO (21:28)
[2021-05-16 21:40] LABS: Bedside Glucose 327 mg/dL (70-110)
[2021-05-16] MEDS: Ceftriaxone 1 GM/50 ML BAG IV (21:57)
[2021-05-16] MEDS: 0.9% Saline Lock 10 ML Syringe IV (21:59)
[2021-05-17] MEDS: Acetaminophen 325 MG Tablet 650 MG PO (01:56)
[2021-05-17 01:59] VITALS: BP 146/76; PULSE 86; RESP 18; TEMP 37.4; O2SAT 93
[2021-05-17 06:49] LABS: Absolute Neutrophil Count 9.7 X10^3/uL (2.0-7.7); Basophil# 0.04 X10^3/uL; Basophil% 0.3 % (0-1); Eosinophil# 0.24 X10^3/uL; Eosinophils% 1.9 % (0-5); Hematocrit 33.7 % (37-47); Hemoglobin 10.5 g/dL (12.0-15.0); Lymphocyte % 14.2 % (19-41); Mean Corp Hgb Conc 31.2 g/dL (32-36); Mean Corpuscular Hgb 24.2 pg (27.0-32.0); Mean Corpuscular Volume 77.8 fL (81-99); Mean Platelet Vol. 11.8 fl (6.2-12.0); Monocyte# 0.78 X10^3/uL; Monocyte% 6.2 % (0-10); NRBC Flagged by Analyzer 0 % (0-5); Neutrophil % 76.6 % (47-70); Platelet Count 183 K/mm3 (150-450); RBC Distribution Width CV 18.4 % (11.6-14.6); RBC Distribution Width SD 51.8 fl (35.1-43.9); Red Blood Count 4.33 M/mm3 (4.2-5.4); White Blood Count 12.7 K/mm3 (4.4-11.0)
[2021-05-17 07:21] LABS: Anion Gap 9 (5-15); BUN 38 mg/dL (7-18); BUN/Creat Ratio 22.9 RATIO (10-20); Calcium,Total 8.5 mg/dL (8.5-10.1); Chloride 100 mmol/L (98-107); Creatinine, Serum 1.66 mg/dL (0.55-1.02); EST Glomerular Filtration Rate 32 mL/min (>60); Est Glom Filt Rate - Afr Amer 38 mL/min (>60); Estimated Creatinine Clearance 21.02 ml/min; Glucose 240 mg/dL (74-106); Sodium Level 133 mmol/L (136-145)
[2021-05-17 08:00] VITALS: BP 157/72; PULSE 81; RESP 18; TEMP 37; O2SAT 94
[2021-05-17] MEDS: Insulin Lispro 100 UNIT/ML INSULN.PEN SC ×2 (08:17→11:26)
[2021-05-17 08:30] LABS: Bedside Glucose 250 mg/dL (70-110)
[2021-05-17 09:51] VITALS: PULSE 80
[2021-05-17] MEDS: APIXABAN 5 MG TABLET PO (09:51)
[2021-05-17] MEDS: Pantoprazole Sodium 40 MG Tablet PO (09:51)
[2021-05-17] MEDS: Lisinopril 20 MG Tablet PO (09:51)
[2021-05-17] MEDS: Metoprolol(XL)Succ 50 MG Tablet PO (09:51)
--- NOTE | 2021-05-17 10:28 | PCM.DC ---
Discharge Instructions Diet Discharge Diet: 1999 Calorie Control Diet Activity Discharge Activity: Return to Normal Activity Dressing / Incision Call your doctor if you observe: Fever of 101 or Higher Follow Up Care Test Results: Test results from this visit will be discussed in further detail at your follow-up appointment, if applicable. Discharge Plan Admission Admit Date/Time: 05/15/21 21:06 Primary Reason for Your Visit: confusion Attending Provider: Cosme Szymanski Primary Care Provider: Jihan Krishnamurthy Discharge Orders/Prescriptions Prescriptions: New acetaminophen [Tylenol] 325 mg Tablet 650 mg PO Q6H PRN PRN (Reason: Pain Score 1-10/Temp > 100.7 F) Qty: 0 RF: 0 Continued lisinopril 20 MG tablet 20 mg PO DAILY RF: 0 Lantus Solostar U-100 Insulin 100 UNITS/ML insulin pen 18 units subcut QHS RF: 0 apixaban 5 MG tablet 5 mg PO DAILY RF: 0 quetiapine 25 mg tablet 25 mg PO QHS RF: 0 metoprolol succinate 50 mg tablet extended release 24 hr 50 mg PO DAILY RF: 0 omeprazole 40 mg capsule,delayed release(DR/EC) 40 mg PO BID RF: 0 ntyajoqw-nvfswsq-tixv-lutein Tablet 1 tab PO DAILY RF: 0 insulin lispro [Humalog KwikPen Insulin] 100 unit/mL Insulin Pen See Protocol TID RF: 0 Referrals / Follow Up: Jihan Krishnamurthy DO [Primary Care Provider] - Within 1 Month Disposition Disposition (needs filled in before D/C Order can be placed): Home Health Service
--- NOTE | 2021-05-17 10:33 | PCM.DC.SUM ---
Providers Date of Admission: 05/15/21 Primary Care Physician: Dr. Jihan Krishnamurthy, DO Reason For Visit: AMS FROM UTI Diagnosis Discharge Diagnosis (1) Metabolic encephalopathy: Status: Acute Code(s): G93.41 - Metabolic encephalopathy Medications at Discharge Home Medications Lantus Solostar U-100 Insulin 18 units SUBCUT QHS 12/23/15 lisinopril 20 mg PO DAILY 12/23/15 apixaban 5 mg PO DAILY 10/09/19 metoprolol succinate 50 mg PO DAILY 05/14/21 kcsrwvke-bbdkxwi-gbyk-lutein 1 tab PO DAILY 05/14/21 omeprazole 40 mg PO BID 05/14/21 quetiapine 25 mg PO QHS 05/14/21 insulin lispro [Humalog KwikPen Insulin] See Protocol TID 05/16/21 acetaminophen [Tylenol] 650 mg PO Q6H PRN PRN #0 tab 05/17/21 Hospital Course Operations None Procedures None Summary of Care Provided Minutes Spent on Discharge: 28 Hospital Course: 81-year-old female presents with confusion and polyuria. Patient was felt to clinically have had a urinary tract infection though her urinalysis was unremarkable as well as urine culture. Patient was put on ceftriaxone. Patient has improved. I do not feel the patient had a urinary tract infection given that her urinalysis was unremarkable for infection and I have discontinued antibiotics. Today, the patient is alert and oriented x3. Plan is for the patient to return home with home health. As to the etiology of the patient's confusion unclear but patient is back to her baseline. Patient will be discharged home in stable condition. Physical Exam Const alert and oriented x3 Resp normal respiratory effort, no retractions, no use of accessory muscles and clear to auscultation bilaterally Cardio regular rate, regular rhythm, S1 normal heart sound and S2 normal heart sound GI normal to inspection, nondistended, normoactive bowel sounds, soft to palpation, non-tender and non-distended Weight / BMI Weight Weight: 77.3 kg Body Mass Index (BMI) 31.1 ABG / Lab / Microbiology Data Result Diagrams: 05/17/21 05:32 05/17/21 05:32 Laboratory: Laboratory Results - last 24 hr 05/16/21 12:45: POC Glucose 194 H 05/16/21 16:53: POC Glucose 47 L 05/16/21 17:15: POC Glucose 43 L* 05/16/21 17:45: POC Glucose 107 05/16/21 21:25: POC Glucose 327 H 05/17/21 05:32: WBC 12.7 H, RBC 4.33, Hgb 10.5 L, Hct 33.7 L, MCV 77.8 L, MCH 24.2 L, MCHC 31.2 L D, RDW Std Deviation 51.8 H, RDW Coeff of Michael 18.4 H, Plt Count 183, MPV 11.8, Immature Gran % (Auto) 0.800, Neut % (Auto) 76.6 H, Lymph % (Auto) 14.2 L, [place] % (Auto) 6.2, Eos % (Auto) 1.9, Baso % (Auto) 0.3, Absolute Neuts (auto) 9.7 H, Absolute Lymphs (auto) 1.80, Nucleated RBC % 0 05/17/21 05:32: Sodium 133 L, Potassium 4.0, Chloride 100, Carbon Dioxide 24.0, Anion Gap 9, BUN 38 H, Creatinine 1.66 H, Estim Creat Clear Calc 21.02, Est GFR (MDRD) Af Amer 38 L, Est GFR (MDRD) Non-Af 32 L, BUN/Creatinine Ratio 22.9 H, Glucose 240 H, Calcium 8.5 05/17/21 08:10: POC Glucose 250 H Microbiology: Microbiology 05/14/21 16:55 Urine, Clean Catch Urine Culture - Final Culture exhibits no growth. 05/15/21 13:15 Blood Culture (Wb) - Anticubital Right Blood Culture - Preliminary No growth in 48 hours. 05/15/21 13:15 Blood Culture (Wb) - Right Hand Blood Culture - Preliminary No growth in 48 hours. 05/14/21 20:24 Nasal Secretion SARS-CoV-2 Antigen (Rapid) - Final D/C Instructions Discharge Diet: 2000 Calorie Control Diet Call your doctor if you observe: Fever of 101 or Higher Meaningful Use Info Meaningful Use Diagnoses (Choose all that apply): None applicable Discharge Plan Admission Admit Date/Time: 05/15/21 21:06 Primary Reason for Your Visit: confusion Attending Provider: Cosme Szymanski Primary Care Provider: Jihan rKishnamurthy Discharge Orders/Prescriptions Prescriptions: New acetaminophen [Tylenol] 325 mg Tablet 650 mg PO Q6H PRN PRN (Reason: Pain Score 1-10/Temp > 100.7 F) Qty: 0 RF: 0 Continued lisinopril 20 MG tablet 20 mg PO DAILY RF: 0 Lantus Solostar U-100 Insulin 100 UNITS/ML insulin pen 18 units subcut QHS RF: 0 apixaban 5 MG tablet 5 mg PO DAILY RF: 0 quetiapine 25 mg tablet 25 mg PO QHS RF: 0 metoprolol succinate 50 mg tablet extended release 24 hr 50 mg PO DAILY RF: 0 omeprazole 40 mg capsule,delayed release(DR/EC) 40 mg PO BID RF: 0 kfdcvbao-rjdawcj-vrux-lutein Tablet 1 tab PO DAILY RF: 0 insulin lispro [Humalog KwikPen Insulin] 100 unit/mL Insulin Pen See Protocol TID RF: 0 Referrals / Follow Up: Jihan Krishnamurthy DO [Primary Care Provider] - Within 1 Month Disposition Disposition (needs filled in before D/C Order can be placed): Home Health Service Charges/Coding Visit Charges Inpatient E&M: 79466 Disch Hosp
--- NOTE | 2021-05-17 10:36 | CASEMGMT ---
TC to [facility], left message with Jose Armando that pt will be dc'd today.
--- NOTE | 2021-05-17 12:40 | CASEMGMT ---
Pt screened with [facility] Palliative Care Screening Tool due to strata 3, pt met criteria. Pt dc'ing today. Notified [facility] agency that pt met criteria. They will follow up with patient.
--- NOTE | 2021-05-17 13:12 | CASEMGMT ---
Social Work Note Per instructor extension work questions, pt has completed HCPOA and LW, haven't provided copies to [facility] and pt unable to bring in copies. Sophie Romero ASSISTANT MANAGER AIRSIDE OPERATIONS, ALLIANCE CONSULTANT
--- NOTE | 2021-05-17 14:13 | PHA.DC.MR ---
Pharmacy Service has performed discharge medication reconciliation for this patient. The patient's discharge medication list was reviewed for discrepancies and discrepancies were resolved. Home Medications Lantus Solostar U-100 Insulin 18 units SUBCUT QHS 12/23/15 lisinopril 20 mg PO DAILY 12/23/15 apixaban 5 mg PO DAILY 10/09/19 metoprolol succinate 50 mg PO DAILY 05/14/21 azdrknam-icawpdg-ydhk-lutein 1 tab PO DAILY 05/14/21 omeprazole 40 mg PO BID 05/14/21 quetiapine 25 mg PO QHS 05/14/21 insulin lispro [Humalog KwikPen Insulin] See Protocol TID 05/16/21 acetaminophen [Tylenol] 650 mg PO Q6H PRN PRN #0 tab 05/17/21
[2021-05-17 14:19] VITALS: BP 149/86; PULSE 78; RESP 18; TEMP 37; O2SAT 93
[2021-05-17 14:26] LABS: Bedside Glucose 216 mg/dL (70-110)
[2021-05-17 16:46] LABS: Bedside Glucose 93 mg/dL (70-110)
--- NOTE | 2021-05-17 19:08 | NURSING ---
talked with pt's son Francisco, aware he is on his way home from a rabbit show then will be here to pick patient up.
[2021-05-17 19:32] VITALS: BP 149/76; PULSE 75; RESP 18; TEMP 37.2; O2SAT 93
--- NOTE | 2021-05-18 11:48 | CASEMGMT ---
BAKARI OROPEZA Discharge Follow Up Phone Call: RUBYAnay: Agustin Strata: 3 Call Date: 05/18/21 Discharge Date: 05/17/21 Time of Call:1145 Duration:2 min Admitting Dx: AMS from UTI BAKARI OROPEZA completed follow up phone call after recent hospitalization. Pt son answered the phone stating that pt was laying down. He states pt is glad to be home and is doing well. [facility] is supposed to call this evening to set up times to be out this week. He does not think the patient has had a chance to call her PCP to schedule an appt but he will remind her to do so. He denies questions or concerns regarding her medications or dc instructions.
== END 2021-05-17 20:40 | disposition home health service (06) | DRG 72 ==
LOC: ED 20:17 → MS3 20:21
PROVIDERS: Student in an Organized Health Care Education/Training Program; Admitting Provider Family Medicine; Emergency Provider Emergency Medicine; PCP Family Medicine
DX: G93.41 Metabolic encephalopathy (principal); R35.8 Other polyuria; Z20.822 Contact with and (suspected) exposure to COVID-19; E11.9 Type 2 diabetes mellitus without complications; I10 Essential (primary) hypertension; E78.5 Hyperlipidemia, unspecified; K21.9 Gastro-esophageal reflux disease without esophagitis; F03.90 Unspecified dementia, unspecified severity, without behavioral disturbance, psychotic disturbance, mood disturbance, and anxiety; Z79.01 Long term (current) use of anticoagulants; Z79.4 Long term (current) use of insulin; Z79.899 Other long term (current) drug therapy; Z87.440 Personal history of urinary (tract) infections; Z87.891 Personal history of nicotine dependence; Z86.718 Personal history of other venous thrombosis and embolism
CPT/HCPCS: 36415; 80048; 80053; 81001; 82962; 83605; 85025; 87040; 87086; 87426; 97161; 97166; 97530; 97535; 99285; J7030; J7040; P9612; A4216; J2405

== ENCOUNTER 2024-02-22 20:00 | Emergency (ER) | payer MEDICARE, SELFPAY ==
[2024-02-22 20:01] VITALS: BP 182/77; PULSE 68; RESP 16; TEMP 36.6; O2SAT 97
--- NOTE | 2024-02-22 20:25 | EDS_ITS ---
HPI HPI - Fall History of Present Illness Chief Complaint: Fall Informant: patient Occured/Mechanism Occurred: Today Mechanism/Context: Yes same level fall Usually ambulates: Walker Pain/Injury Location: Right hip and buttock Quality of Pain: Aching and Stabbing Worsened by: Ambulation, weightbearing Relieved by: Nothing Associated Symptoms Associated Symptoms: Negative for Parasthesias, Weakness, Loss of function, Loss of consciousness or Amnesia Narrative Narrative: Patient presents after a fall that occurred today. Patient was bending over getting something out of the bottom of her refrigerator when she stood up quickly. Granddaughter states that she got lightheaded and started to fall backwards. Granddaughter states she was able to catch her and help her to the ground. Patient complains of pain in her right gluteal area and right hip area. Granddaughter states that the patient had a prior hip fracture on the right and has had surgical fixation of that right hip. Patient states her pain is worse with ambulation. Patient denies any paresthesias or weakness. Patient denies any head injury or loss of consciousness. Patient denies any other injuries. [facility] Medical History DVT (deep venous thrombosis) 23-polyvalent pneumococcal polysaccharide vaccine indication of diabetes in patient 6 to 64 years of age Cholecystitis Dementia Home Medications ?Medication ?Instructions ?Recorded ?Last Taken ?Type insulin glargine 100 unit/mL (3 18 units subcut QHS insulin 12/23/15 05/13/21 History mL) subcutaneous pen (Lantus Solostar U-100 Insulin) lisinopril 20 mg tablet 20 mg PO DAILY 12/23/15 05/14/21 History apixaban 5 mg tablet 5 mg PO DAILY 10/09/19 05/14/21 History metoprolol succinate 50 mg 50 mg PO DAILY HEART 05/14/21 05/14/21 History tablet,extended release 24 hr coparvvb-fgqpsgn-fgvb-lutein tablet 1 tab PO DAILY SUPPLEMENT 05/14/21 05/14/21 History omeprazole 40 mg capsule,delayed 40 mg PO BID ACID REFLUX 05/14/21 05/14/21 History release quetiapine 25 mg tablet 25 mg PO QHS MOOD 05/14/21 05/13/21 History insulin lispro 100 unit/mL See Protocol TID insulin 05/16/21 Unknown History subcutaneous pen (Humalog KwikPen (U-100) Insulin) acetaminophen 325 mg tablet 650 mg (2 x 325 mg) PO Q6H PRN PRN 05/17/21 Unknown Rx (Tylenol) Pain Score 1-10/Temp > 100.7 F #0 tabs Allergy/AdvReac Type Severity Reaction Status Date / Time morphine Allergy Itching Verified 02/22/24 20:04 meperidine HCl (From Demerol) AdvReac Nausea Verified 02/22/24 20:04 Family History (Updated 05/14/21 @ 21:[address] Paco Coombs MD) Other Diabetes Heart disease Surgical History History of total knee arthroplasty History of hip surgery S/P cholecystectomy Social History household members: family Smoking Status: Former smoker alcohol intake: current Alcohol type: other substance use type: does not use ROS ROS ED Constitutional Constitutional ED: Denies chills or fever(s) Eyes Eyes: Denies blurry vision or change in vision ENT ENT ED: Denies rhinorrhea or sore throat Cardiovascular Cardiovascular: Denies chest pain or palpitations Respiratory/Chest Respiratory/Chest: Denies cough or dyspnea Gastrointestinal Gastrointestinal: Denies nausea or vomiting Genitourinary Genitourinary ED: Denies dysuria or hematuria Musculoskeletal Musculoskeletal: Denies back pain or neck pain Integumentary Denies abscess or rash Neurologic Neurologic: Denies headache(s) or weakness Allergic/Immunologic Allergic/Immunologic ED: Denies mouth swelling or urticaria EXAM Physical Exam Const Vital Signs: 02/22/24 20:01 02/22/24 20:20 Temperature 97.8 F Temperature Source Temporal Pulse Rate 68 Respiratory Rate 16 Respiratory Effort Normal Non-Labored Respiratory Depth Normal Respiratory Pattern Normal Blood Pressure 182/77 H Blood Pressure Mean 112 Pulse Ox 97 Oxygen Delivery Method Room Air Room Air Positive well nourished and well developed General Appearance ED: well developed and NAD HEENT Reports normocephalic atraumatic Neck full ROM and supple Resp normal respiratory effort and clear to auscultation bilaterally Cardio regular rate and regular rhythm Extremity Extremity Narrative: There is tenderness over the posterior and lateral aspect of the right hip. There is no deformity noted. There is no pain with internal/external rotation of the right lower extremity. There is no tenderness over the knee or lower leg. Pedal pulses are equal bilaterally. Sensation was intact to light touch bilaterally in lower extremities. Strength is 5/5 bilaterally in the lower extremities. Neuro oriented x3, CN's II-XII intact bilaterally, moves all extremities, no focal motor deficits and no sensory deficits noted Demetrio Coma Scale: document GCS findings Spontaneous Obeys Commands Oriented 15 Sensorium / Orientation: alert Motor Exam: strength 5/5 throughout Psych mental status grossly normal MDM MDM MDM Narrative Medical decision making narrative: Differential diagnosis includes hip fracture, contusion, sprain, intracranial bleeding, and muscle strain. X-rays of the right hip will be obtained to assess for fracture and dislocation. CT scan of the brain will be obtained to assess for intracranial bleeding. Radiography Diagnostic Testing: Clinical Impression(s) from Imaging Studies Brain CT 02/22/24 20:31 IMPRESSION: Age-related changes of the brain. Electronically Signed: Pedro Bartlett DO at 21:12 EDT , Hip/Pelvis X-Ray 02/22/24 21:00 IMPRESSION: No acute bony injury. Electronically Signed: Pedro Bartlett DO at 21:21 EDT , X-rays of the right hip were obtained. There were 3 views. On my independent interpretation, there is no acute fracture. There are some degenerative changes noted. Radiologist also interpreted the x-rays and agrees. CT scan of the brain was obtained. There is no acute intracranial abnormality. There are chronic changes noted. This was interpreted by the radiologist and was also independently reviewed by myself. Treatment and Re-Evaluation Narrative: Patient was given a dose of [place] here. Patient states that helped somewhat but her pain became worse. Patient was given a repeat dose of [place]. Patient was able to ambulate to the bathroom with a walker. Patient and family were advised of the findings. Patient was given a prescription for a short course of [place]. Patient was instructed to use ice to the area. Patient was instructed to follow-up with her primary care physician in 5 to 7 days. Patient and family understood and were agreeable with the plan. All questions were answered. Discharge Plan Triage Chief Complaint: Fall ED Provider: Cosme Craig Dx/Rx/DC Orders Clinical Impression: Contusion of right hip, initial encounter, Fall Instructions: ED Hip Contusion Prescriptions: No Action lisinopril 20 MG tablet 20 mg PO DAILY Lantus Solostar U-100 Insulin 100 UNITS/ML insulin pen 18 units subcut QHS Patient Comments: only give hs lantus if glucose over 175 apixaban 5 MG tablet 5 mg PO DAILY quetiapine 25 mg tablet 25 mg PO QHS metoprolol succinate 50 mg tablet extended release 24 hr 50 mg PO DAILY omeprazole 40 mg capsule,delayed release(DR/EC) 40 mg PO BID Patient Comments: TAKE 1 CAPSULE BY MOUTH TWICE A DAY mpwjkrlx-liiwdpg-ydcp-lutein Tablet 1 tab PO DAILY insulin lispro [Humalog KwikPen Insulin] 100 unit/mL Insulin Pen See Protocol TID Protocol: 6. Sliding Scale Insulin Custom Condition: with meals Dose/Route: 8 units sq Instruction: glucose 151-200 Condition: with meals Dose/Route: 12 units sq Instruction: glucose 201-250 Condition: with meals Dose/Route: 18 units sq Instruction: glucose 250 and up Protocol Text: Custom Sliding Scale Patient Comments: per son marbella 05/16/21 acetaminophen [Tylenol] 325 mg Tablet 650 mg PO Q6H PRN PRN (Reason: Pain Score 1-10/Temp > 100.7 F) Qty: 0 0RF Primary Care Provider: Jihan Krishnamurthy Referrals: Jihan Krishnamurthy DO [Primary Care Provider] - 5-7 Days Print Language: Martiniquais Disposition Disposition: Home, Self Care
--- NOTE | 2024-02-22 20:31 | CT_ITS ---
STUDY: CT BRAIN WITHOUT CONTRAST REASON FOR EXAM: Female, 83 years old. Injury/Pain RADIATION DOSAGE (If Supplied By Facility): CTDIvol = ( 44.99 ) mGy, DLP = ( 745.49 ) mGycm TECHNIQUE: Transaxial CT imaging of the brain was performed without administration of intravenous contrast material. Individualized dose optimization techniques were used for this CT. COMPARISON: No relevant priors. FINDINGS: Normal soft tissue structures. Normal calvarium. Prominent ventricles. Normal extra-axial spaces for the patient''s age. Bilateral white matter microangiopathic ischemic changes of the cerebral hemispheres. Normal basal ganglia and thalami. Normal brainstem. Normal cerebellum. There is no intracranial hemorrhage. There are no findings of an acute ischemic infarction. Normal visualized paranasal sinuses. CT/Brain/Head without Contrast IMPRESSION: Age-related changes of the brain. Electronically Signed: Pedro Bartlett DO at 21:12 EDT ,
[2024-02-22] MEDS: HYDROcodone Bitartrate/Apap 5/325 Tablet PO ×2 (20:39→21:43)
--- NOTE | 2024-02-22 21:00 | RAD_ITS ---
INDICATION: Injury/Pain EXAMINATION/TECHNIQUE: X-RAY - XR Right Hip Unilateral with Pelvis when performed; 2-3 Views COMPARISON: FINDINGS: PELVIC BONES: No displaced fracture, destructive or sclerotic lesions. Note that overlapping bowel shadows may however obscure fine detail. Sacroiliac joints are unremarkable. No widening of the pubic symphysis. HIPS: Status post right femoral ORIF. No displaced fracture seen in this frontal view. SOFT TISSUES: No soft tissue swelling or gas. RAD/HIP, UNI W/ Pelvis 2-3 Views IMPRESSION: No acute bony injury. Electronically Signed: Pedro Bartlett DO at 21:21 EDT ,
== END 2024-02-22 22:22 | disposition home or self-care (01) ==
PROVIDERS: Emergency Provider Emergency Medicine; PCP Family Medicine; Visit Provider Emergency Medicine
DX: S70.01XA Contusion of right hip, initial encounter (principal); W18.30XA Fall on same level, unspecified, initial encounter; Z79.01 Long term (current) use of anticoagulants; Z79.899 Other long term (current) drug therapy; Z87.891 Personal history of nicotine dependence
CPT/HCPCS: 70450; 73502; 99283

== ENCOUNTER 2025-04-30 23:43 | Emergency (ER) | payer MEDICARE, SELFPAY ==
--- NOTE | 2025-04-30 23:40 | CT_ITS ---
PROCEDURE: STROKE CTA HEAD AND NECK W/CON 04/30/2025 REASON FOR EXAM: NEURO DEFICIT, ACUTE, STROKE SUSPECTED TECHNIQUE: STROKE CTA HEAD AND NECK W/CON Multiplanar Sagittal and Coronal images were obtained. CONTRAST: 100 mL of Isovue-370 One or more dose reduction techniques were used (e.g., Automated exposure control, adjustment of the mA and/or kV according to patient size, use of iterative reconstruction technique). RADIATION DOSE SUMMARY: CTDlvol: 24.91 mGy DLP: 624.16 mGycm COMPARISON: None at the time of dictation FINDINGS: Aortic Arch: Minimal atherosclerotic calcifications are seen in the aortic arch Brachiocephalic and Subclavians: Normal The common carotid, internal and external carotid arteries are patent. No stenotic or occluding lesion. The vertebral arteries are patent bilaterally The distal internal carotid arteries are normal. The carotid bifurcations are well visualized and are patent. There is sudden carafe of the distal aspect of the right middle cerebral artery at the level of its bifurcation with poor visualization of the right M2 and M3 segments. Distal collateralization is noted however with poor perfusion of the right frontoparietal cortex. There is no evidence of intracranial aneurysm or arteriovenous malformation. Normal size of the ventricles and extra-axial spaces for the patient's age. Normal white matter tracts of the supratentorial brain. Normal basal ganglia and thalami. Normal brainstem. Normal cerebellum. There is no demonstrated extra-axial, intraparenchymal, or intraventricular hemorrhage. There are no findings of an acute ischemic infarction. Normal calvarium. There is no demonstrated fracture. Normal soft tissue structures. Normal visualized paranasal sinuses. 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 Reading [facility]
[2025-04-30 23:44] VITALS: TEMP 36.6; BMI 28.3
--- NOTE | 2025-04-30 23:44 | EKG12_ITS ---
Test Reason : STROKE Blood Pressure : */* mmHG Vent. Rate : 81 BPM Atrial Rate : * BPM P-R Int : * ms QRS Dur : 96 ms QT Int : 410 ms P-R-T Axes : * 35 84 degrees QTcB Int : 476 ms Atrial fibrillation Nonspecific T wave abnormality Abnormal ECG Confirmed by CORINNE GARCIA ([id number]), telegraph editor JONATHAN BILLINGSLEY ([id number]) on 05/06/2025 6:34:32 AM Referred By: AT Confirmed By: CORINNE GARCIA
--- NOTE | 2025-04-30 23:44 | CT_ITS ---
PROCEDURE: STROKE CT BRAIN/HEAD WITHOUT CONTRAST 04/30/2025 REASON FOR EXAM: NEURO DEFICIT, ACUTE, STROKE SUSPECTED TECHNIQUE: STROKE CT BRAIN/HEAD WITHOUT CONT Coronal and Sagittal reconstruction series were provided. One or more dose reduction techniques were used (e.g., Automated exposure control, adjustment of the mA and/or kV according to patient size, use of iterative reconstruction technique. RADIATION DOSE SUMMARY: CTDlvol: 44.99 mGy DLP: 779.24 mGycm COMPARISON: 02/22/2024 FINDINGS: No acute intracranial hemorrhage, extra-axial collection, mass effect or evidence of acute infarct. Moderate generalized brain parenchymal volume loss, and chronic microangiopathic changes in the supratentorial white matter. Prior right orbital cataract surgery. Intact skull base and calvarium. Well-aerated paranasal sinuses and mastoid air cells. CT/STROKE Brain/Head without Cont IMPRESSION: No acute intracranial abnormality. Moderate volume loss and chronic microangiopathic changes. Reading Location: [id number]
--- NOTE | 2025-04-30 23:45 | EX.ED.DYSGE1 ---
HPI History of Present Illness Chief Complaint: Stroke Alert [facility] Medical History DVT (deep venous thrombosis) 23-polyvalent pneumococcal polysaccharide vaccine indication of diabetes in patient 6 to 64 years of age Cholecystitis Dementia Home Medications ?Medication ?Instructions ?Recorded ?Last Taken ?Type insulin glargine 100 unit/mL (3 18 units subcut QHS insulin 12/23/15 05/13/21 History mL) subcutaneous pen (Lantus Solostar U-100 Insulin) lisinopril 20 mg tablet 20 mg PO DAILY 12/23/15 05/14/21 History apixaban 5 mg tablet 5 mg PO DAILY 10/09/19 05/14/21 History metoprolol succinate 50 mg 50 mg PO DAILY HEART 05/14/21 05/14/21 History tablet,extended release 24 hr qigldqib-xgsdubb-gvnz-lutein tablet 1 tab PO DAILY SUPPLEMENT 05/14/21 05/14/21 History omeprazole 40 mg capsule,delayed 40 mg PO BID ACID REFLUX 05/14/21 05/14/21 History release quetiapine 25 mg tablet 25 mg PO QHS MOOD 05/14/21 05/13/21 History insulin lispro 100 unit/mL See Protocol TID insulin 05/16/21 Unknown History subcutaneous pen (Humalog KwikPen (U-100) Insulin) acetaminophen 325 mg tablet 650 mg (2 x 325 mg) PO Q6H PRN PRN 05/17/21 Unknown Rx (Tylenol) Pain Score 1-10/Temp > 100.7 F #0 tabs hydrocodone-acetaminophen 5-325mg 1 tab PO Q6H PRN PRN Pain 3 days 02/22/24 Unknown Rx 5mg-325mg #10 TABLETS Allergy/AdvReac Type Severity Reaction Status Date / Time morphine Allergy Itching Verified 02/22/24 20:04 meperidine HCl (From Demerol) AdvReac Nausea Verified 02/22/24 20:04 Family History (Updated 05/14/21 @ 21:[address] Paco Coombs MD) Other Diabetes Heart disease Surgical History History of total knee arthroplasty History of hip surgery S/P cholecystectomy Social History household members: family Smoking Status: Former smoker alcohol intake: current Alcohol type: other substance use type: does not use EXAM Physical Exam Const Vital Signs: 04/30/25 23:44 04/30/25 23:53 05/01/25 00:18 Temperature Temperature Source Pulse Rate 89 84 Respiratory Rate 20 H Blood Pressure 203/100 H 195/97 H Blood Pressure Mean 134 129 Blood Pressure Source Blood Pressure Position Blood Pressure Location Pulse Ox 99 Oxygen Delivery Method Room Air Room Air 05/01/25 00:24 05/01/25 00:31 05/01/25 00:32 Temperature 97.9 F 97.9 F Temperature Source Temporal Temporal Pulse Rate 88 78 Respiratory Rate 22 H 18 Blood Pressure 195/97 H 180/89 H 180/89 H Blood Pressure Mean 129 119 Blood Pressure Source Blood Pressure Position Blood Pressure Location Pulse Ox 98 97 Oxygen Delivery Method Room Air Room Air 05/01/25 00:38 05/01/25 00:38 Temperature 97.9 F 97.9 F Temperature Source Temporal Temporal Pulse Rate 74 83 Respiratory Rate 16 17 Blood Pressure 187/85 H 130/63 H Blood Pressure Mean 119 85 Blood Pressure Source Monitor Blood Pressure Position Semi-Fowlers Blood Pressure Location Left Arm Pulse Ox 96 95 Oxygen Delivery Method Room Air Room Air MDM MDM MDM Narrative Medical decision making narrative: HISTORY OF PRESENT ILLNESS: Chief complaint: Acute CVA 85-year-old female history of A-fib on Eliquis, type 2 diabetes, dementia, DVT presents concern for acute CVA. Prehospital stroke team called. Per EMS patient collapsed and had left-sided weakness in her arms and legs. Blood sugar was greater than 100. Last known well 11 PM on 05/01/2025. Although her chart lists Eliquis the patient's daughter states she has not been Eliquis since March. Denies any bleeding diathesis. REVIEW OF SYSTEMS: Pertinent positives: Left-sided weakness Pertinent negatives: Vomiting PHYSICAL EXAM: Nursing triage notes reviewed, Vital signs reviewed Constitutional: please see mdm HENT: MMM Eyes: Pupils equal round and reactive to light, Extraocular muscles intact Neck: No stridor, no JVD, full neck ROM Lungs: Clear to auscultation, No wheezing or rales. No increased work of breathing, no conversational dyspnea, no accessory muscle use, no nasal flaring. No respiratory distress noted Heart: Regular rate and rhythm, No murmurs, No rubs and No gallops, 2+ distal pulses (radial, femoral, posterior tibial) in all extremities Abdomen: Soft, there is no tenderness, rigidity, rebound or guarding, no obvious peritoneal signs, no palpable pulsatile abdominal masses, no auscultated abdominal bruit : No CVAT Extremities: No edema Neuro: Patient was disoriented (alert but oriented to name and place), obvious left upper and lower extremity weakness, has obvious neglect to the left side of the world. Flaccid left upper extremity has some contracture of musculature in the left lower extremity. Initial NIH 14 Skin: No rash or lesions noted MEDICAL DECISION MAKING: Chief Complaint: please see HPI External records reviewed: Reviewed meds reviewed prior imaging Factors affecting care: Atrial fibrillation, hypertension, GERD Social determinants of health: Elderly, dementia History obtained from others: Family, EMS Consults: Stroke radiology, stroke neurology (Dr. Schreiber) MDM Narrative: Patient was initially evaluated in the ambulance bay. Had obvious left-sided weakness and left-sided neglect. Given stable vitals and concern for acute CVA and the importance of time she was taken directly to CT scanner. Stroke order set initiated. After quickly reviewing her chart and noted she was on Eliquis. While she still candidate for thrombectomy she is technically not a candidate for TNK. Will discuss this with stroke neurologist. I considered the following differential diagnosis: Acute CVA, ICH, focal seizure, I obtained a broad lab and imaging to further determine if the patient was suffering from a life-threatening etiology. ALL IMAGES (IF OBTAINED) HAVE BEEN PERSONALLY REVIEWED AND INTERPRETED BY MYSELF. EKG with rate controlled A-fib, rate of 81, normal axis, normal intervals, no STEMI CT scan of the brain shows no evidence of acute ICH CT angiogram of the head neck shows large vessel occlusion CBC with no leukocytosis, noted mild anemia, no thrombocytopenia No coagulopathy noted on PTT/PT/INR BMP without significant electrolyte malady, no sign of HARINDER High-sensitivity troponin is negative, no evidence of myocardial ischemia Discussed the case with Dr. Schreiber who noted the patient was a candidate for TNK given last known well being within the 4 and half hour taniya and her NIH of 14 and debilitating symptoms. TNK was ordered. Discussed with pharmacy Patient's blood pressures initially elevated 203/100. Goal is get her systolic blood pressure less than 185. Will give labetalol followed by nicardipine drip if this is not suffice. Repeat blood pressure after labetalol is 195/97. Will start nicardipine drip. Patient blood pressure improved after nicardipine drip initiation. TNK was not given. Patient will require transfer to tertiary center given need for likely thrombectomy. [facility] excepted patient in transfer. The patient and/or family, caregivers express understanding. The patient and/or family, caregivers agrees with the plan. Shared decision making: I will have a discussion with the patient and or visitors regarding risk/benefits of further testing or admission. They will be made aware of of the risk/benefits inherent in this decision they will be given the opportunity to voice understanding. Total critical care time today provided was at least 60 minutes. This excludes separately billable procedures. Critical care time (if documented) is secondary to the patient having high probability of clinically significant/life threatening deterioration in the patient's condition which required my urgent intervention. Impression: 1. Acute CVA 2. History Of A-fib 3. History of dementia Dispo: Transfer to [facility] given large vessel occlusion This note was generated with [employer] dictation software. It may contain incorrect words, spelling, and punctuation that were not noted in review of the chart prior to signing. Lab Data Labs: Laboratory Results - last 24 hr 05/01/25 00:25 WBC 8.4 RBC 4.77 Hgb 11.0 L Hct 35.0 L MCV 73.4 L MCH 23.1 L MCHC 31.4 L RDW Std Deviation 53.0 H RDW Coeff of Michael 20.2 H Plt Count 227 MPV 10.6 Immature Gran % (Auto) 0.500 Neut % (Auto) 60.9 Lymph % (Auto) 30.2 Walker % (Auto) 5.9 Eos % (Auto) 2.1 Baso % (Auto) 0.4 Absolute Neuts (auto) 5.1 Absolute Lymphs (auto) 2.54 Nucleated RBC % 0 Differential Comment SCANNED Reactive Lymphocytes RARE RBC Morphology N CHROM Anisocytosis 2+ Microcytosis 1+ Ovalocytes 1+ PT 13.2 INR 1.0 APTT 24.2 Sodium 134 Potassium 4.3 Chloride 99 Carbon Dioxide 22.1 Anion Gap 13 BUN 29 H Creatinine 1.18 Estim Creat Clear Calc 31.95 L Est GFR (MDRD) Non-Af 45 L BUN/Creatinine Ratio 24.5 H Glucose 198 H Calcium 8.8 Troponin T High Sens 22 H Radiography Diagnostic Testing: Clinical Impression(s) from Imaging Studies Head/Neck CTA 04/30/25 23:40 IMPRESSION: Findings of acute embolism to the distal right MCA with absent of enhancement of the right M2 and M3 segment. [id number] 04/30/25 23:44 IMPRESSION: No acute intracranial abnormality. Moderate volume loss and chronic microangiopathic changes. Reading Location: [id number] Discharge Plan Triage Chief Complaint: Stroke Alert ED Provider: Lamberto Feng Dx/Rx/DC Orders Prescriptions: No Action lisinopril 20 MG tablet 20 mg PO DAILY Lantus Solostar U-100 Insulin 100 UNITS/ML insulin pen 18 units subcut QHS Patient Comments: only give hs lantus if glucose over 175 apixaban 5 MG tablet 5 mg PO DAILY quetiapine 25 mg tablet 25 mg PO QHS metoprolol succinate 50 mg tablet extended release 24 hr 50 mg PO DAILY omeprazole 40 mg capsule,delayed release(DR/EC) 40 mg PO BID Patient Comments: TAKE 1 CAPSULE BY MOUTH TWICE A DAY jocdzbmg-kozeqlk-fovk-lutein Tablet 1 tab PO DAILY insulin lispro [Humalog KwikPen Insulin] 100 unit/mL Insulin Pen See Protocol TID Protocol: 6. Sliding Scale Insulin Custom Condition: with meals Dose/Route: 8 units sq Instruction: glucose 151-200 Condition: with meals Dose/Route: 12 units sq Instruction: glucose 201-250 Condition: with meals Dose/Route: 18 units sq Instruction: glucose 250 and up Protocol Text: Custom Sliding Scale Patient Comments: per melecio tyson 05/16/21 acetaminophen [Tylenol] 325 mg Tablet 650 mg PO Q6H PRN PRN (Reason: Pain Score 1-10/Temp > 100.7 F) Qty: 0 0RF hydrocodone-acetaminophen 5-325 mg tablet 1 tab PO Q6H PRN PRN (Reason: Pain) 3 Days Qty: 10 0RF Primary Care Provider: Jihan Krishnamurthy Referrals: Jihan Krishnamurthy DO [Primary Care Provider] - Print Language: Citizen Of [place]
[2025-04-30 23:46] VITALS: BMI 28.2
[2025-04-30 23:53] VITALS: BP 203/100; PULSE 89; RESP 18; O2SAT 97
[2025-05-01] VITALS (9 sets, daily range): BP systolic 116–195; BP diastolic 63–97; PULSE 71–88; RESP 16–22; TEMP 36.5–36.6; O2SAT 95–99
[2025-05-01] MEDS: Nicardipine HCl-0.9% Sod Chlor 20 MG/200 ML IV.SOLN 50 MG CONT INF (00:24)
--- OUTSIDE RECORDS SUMMARY | 2025-05-01 00:24 | XMS RPT_ITS | CCD ---
Author Organization [facility] Care Team Providers Care Finisher Map And Chart Name Role Phone Jonn Krishnamurthy Primary Care Provider [phone] Unavailable Primary Care Provider Sandeep Noriega MD Unavailable Wenceslao DO, [facility] Primary Care Provid er Wenceslao NEVES [facility] Primary Care Provid er Wenceslao DO [facility] Primary Care Provid er Wenceslao NEVES [facility] Primary Care Provid er Wenceslao DO [facility] Primary Care Provid er [facility] Primary Care Provid er [facility] DO [place] Primary Care Provider [facility] Primary Care Unavailable BRYAN, JULIO Admitting Unavailable TARIK, WANG Attending Unavailable Gerardo Paulson CNP Unavailable [facility] [place] Laura Unavailable Brayan De Anda RN Unavailable Mariano Rose Attending Unavailable [facility] Primary Care Unavailable Mariano Rose Attending Unavailable [facility] BRIANNA [facility] Primary Care Unavaila ble Mariano Rose Attending Unavailable [facility] Primary Care Unavailable Mariano Rose Referring Unavailable [facility] Primary Care Unavailable Cosme Craig Attending Unavailable Vivi Peoples PT Unavailable [facility] Attending Cal [facility]ISH[facility]URTHY [facility] Primary Care Unaflorencia KR[facility]NAMURTHY [facility] Primary Care JOHN Menjivar Attending Unavailable WENCESLAO, [facility] Primary Care Unavai lable WENCESLAO, [facility] Attending Unavai lable WENCESLAO, [facility] Primary Care Unavai lable WENCESLAO, [facility] Attending Unavai lable WENCESLAO, [facility] Primary Care Unavai lable WENCESLAO, [facility]URA Attending Tequilavai lable WENCESLAO, [facility] Primary Care JOHN Menjivar Referring Unavailable WENCESLAO, [facility] Primary Care Unavai lable Allergies Allergy Classification Reported Allergen(s) Allergy Type Date of Onset Reaction(s) Facility (20 sources) Meperidine; Translations: [MEPERIDINE] Drug Allergy 6 Unknown, Vomiting, Nausea And Vomiting, Other: See Comments [place] (1 source) Meperidine Drug Allergy 9 unknown [facility] Work Phone: (1 source) Meperidine Drug Allergy 4 [facility] (2 sources) Morphine; Translations: [MORPHINE] Drug Allergy 4 [facility] (3 sources) Morphine Drug Allergy 4 Other: See Comments [facility] Medications Current Medications Medication Drug Class(es) Dates Sig (Normalized) Sig (Original) acetaminophen 325 mg / HYDROcodone bitartrate 5 mg oral tablet (19 sources) Opioid Agonist Start: 01-27-2022 End: 02-03-2022 take 1 tablet by mouth every six hours as needed for pain HYDROcodone-acetam inophen (NORCO) 5-325 mg per tablet Indications: Generalized arthritis Take 1 tablet by mouth every 6 hours as needed for pain for up to 7 days. 28 tablet 0 01/27/2022 02/03/2022 Active Start: 10-08-2021 End: 01-17-2022 take 1 tablet by mouth every six hours as needed for pain HYDROcodone-acetaminophen (NORCO) 5-325 mg per tablet Indications: Arthritis of knee Take 1 tablet by mouth every 6 hours as needed for pain. 28 tablet 0 10/08/2021 01/17/2022 Discontinued (Course of therapy completed) Start: 08-02-2021 End: 04-11-2022 take 1 tablet by mouth every eight hours as needed for pain HYDROcodone-Acetaminophen (NORCO) 7.5-32 5 mg per tablet Indications: Chronic midline low back pain without sciatica Take 1 tablet by mouth every 8 hours as needed for pain. 20 tablet 0 01/17/2022 04/11/2022 Discontinued Start: 03-08-2019 NORCO 5-325 MG TABS 1 tablet every 6 hours as needed for pain HYDROCODONE-ACETAMINOPHEN [id number] Benedict Larose RN Start: 03-08-2019 NORCO 5-325 MG TABS 1 tablet every morning and at bedtime HYDROCODONE-ACETAMINOPHEN [id number] Sandeep Ross MD Comment on above: Take 1 tablet by laureano th every 8 hours as needed for pain for up to 28 doses. Take 1 tablet by laureano th every 6 hours as needed for pain. Take 1 tablet by laureano th every 8 hours as needed for pain. Take 1 tablet by laureano th every 6 hours as needed for pain for up to 7 days. acetaminophen 325 mg / oxyCODONE hydrochloride 5 mg oral tablet (20 sources) Opioid Agonist Start: End: take 1 tablet by mouth every six hours as needed for pain oxyCODONE-acetaminophen (PERCOCET) 5-325 mg tablet Indications: Osteoarthritis, unspecified osteoarthritis type, unspecified site Take 1 tablet by mouth every 6 hours as needed for pain for up to 20 doses. 20 tablet 02/18/2025 04/20/2025 Active Start: 08-13-2024 End: 12-12-2024 take 1 tablet by mouth every four hours as needed for pain oxyCODONE-acetaminophen (PERCOCET) 5-325 mg tablet Indications: Acute midline low back pain without sciatica Take 1 tablet by mouth every 4 hours as needed for pain for up to 7 days. 28 tablet 11/08/2024 11/15/2024 Active Start: 07-10-2024 End: 07-26-2024 take 1 tablet by mouth once daily as needed for pain oxyCODONE-acetaminophen (PERCOCET) 5-325 mg tablet Indications: Spinal stenosis of cervical region Take 1 tablet by mouth once daily as needed for pain for up to 16 days. 16 tablet 07/10/2024 07/26/2024 Active Start: 06-11-2024 End: 06-27-2024 take 1 tablet by mouth once daily as needed for pain oxyCODONE-acetaminophen (PERCOCET) 5-325 mg tablet Indications: Spinal stenosis of cervical region Take 1 tablet by mouth once daily as needed for pain for up to 16 days. 16 tablet 06/11/2024 06/27/2024 Active Start: 05-23-2024 End: 05-30-2024 take 1 tablet by mouth every six hours as needed for pain oxyCODONE-acetaminophen (PERCOCET) 5-325 mg tablet Indications: Bilateral hip pain , Chronic midline low back pain without sciatica Take 1 tablet by mouth every 6 hours as needed for pain for up to 7 days. 20 tablet 05/23/2024 05/30/2024 Start: 04-19-2024 End: 04-26-2024 oxyCODONE-acetaminophen (PER COCET) 5-325 mg tablet Indications: Primary osteoarthritis of both hips Take 1 tablet by mouth every 6 hours as needed for pain for up to 7 days. Take 1/2 pill in the morning and 1/2 pill in at night. 20 tablet 04/19/2024 04/26/2024 Active Start: 07-05-2023 End: 12-09-2023 take 1 tablet by mouth once daily as needed for pain oxyCODONE-acetaminophen (PERCOCET) 5-325 mg tablet Indications: Primary osteoarthritis of both hips , Lumbar spondylosis , Primary osteoarthritis of right knee Take 1 tablet by mouth once daily as needed for pain for up to 15 days. 15 tablet 0 11/24/2023 12/09/2023 Active Start: 01-13-2023 End: 07-05-2023 take 1 tablet by mouth every six hours as needed for pain oxyCODONE-acetaminophen (PERCOCET) 5-325 mg tablet Indications: Primary osteoarthritis of both hips , Lumbar spondylosis , Primary osteoarthritis of right knee Take 1 tablet by mouth every 6 hours as needed for pain. 20 tablet 0 01/13/2023 07/05/2023 Discontinued Start: 11-09-2022 take 1 tablet by laureano every six hours as needed for pain oxyCODONE-acetaminophen (PERCOCET) 5-325 mg tablet Indications: Primary osteoarthritis of both hips , Lumbar spondylosis , Primary osteoarthritis of right knee Take 1 tablet by mouth every 6 hours as needed for pain. 12 tablet 0 11/09/2022 Active Start: 09-23-2022 End: 11-09-2022 oxyCODONE-acetaminophen (PER COCET) 5-325 mg tablet Indications: Primary osteoarthritis of both hips , Lumbar spondylosis , Primary osteoarthritis of right knee Take 1/2 tablet up to twice daily for pain [facility] until seen 10/21/22 for increased pain 4 tablet 0 10/19/2022 11/09/2022 Discontinued Start: 06-29-2022 End: 07-31-2022 oxyCODONE-acetaminophen (PER COCET) 5-325 mg tablet Indications: Primary osteoarthritis of both hips , Lumbar spondylosis , Spinal stenosis, lumbar region with neurogenic claudication , Spinal stenosis of lumbar region with neurogenic claudication Take 1/2 pill in the morning and 1/2 pill in at night. 5 extra this month only for sever pain- 1/2 TID not to exceed 3 half tablets per day. Adjust OTC Tylenol dose accordingly. 35 tablet 0 07/01/2022 07/31/2022 Active Start: 05-13-2022 End: 06-12-2022 oxyCODONE-acetaminophen (PER COCET) 5-325 mg tablet Indications: Primary osteoarthritis of both hips , Lumbar spondylosis , Spinal stenosis, lumbar region with neurogenic claudication , Spinal stenosis of lumbar region with neurogenic claudication Take 1/2 pill in the morning and 1/2 pill in at night. Do not start before May 13, 2022. 30 tablet 0 05/13/2022 06/12/2022 Active Start: 05-13-2022 End: 05-10-2022 oxyCODONE-acetaminophen (PER COCET) 5-325 mg tablet Indications: Primary osteoarthritis of both hips , Lumbar spondylosis , Spinal stenosis, lumbar region with neurogenic claudication , Spinal stenosis of lumbar region with neurogenic claudication Take 1/2 pill in the morning and 1/2 pill in at night. Do not start before May 13, 2022. 30 tablet 0 05/13/2022 05/10/2022 Discontinued Start: 04-13-2022 End: 06-12-2022 oxyCODONE-acetaminophen (PER COCET) 5-325 mg tablet Indications: Primary osteoarthritis of both hips , Lumbar spondylosis , Spinal stenosis, lumbar region with neurogenic claudication , Spinal stenosis of lumbar region with neurogenic claudication Take 1/2 pill in the morning and 1/2 pill in at night. Do not start before May 13, 2022. 30 tablet 0 05/13/2022 06/12/2022 Active Start: 04-11-2022 End: 05-11-2022 take 1 tablet by mouth twice daily oxyCODONE-Acetaminophen 2.5-325 mg per tablet Indications: Primary osteoarthritis of both hips , Lumbar spondylosis , Spinal stenosis, lumbar region with neurogenic claudication Take 1 tablet by mouth twice daily for 30 days. 60 tablet 0 04/11/2022 05/11/2022 Active Comment on above: Take 1 tablet by laureano th twice daily for 30 days. Take 1/2 pill in the morning and 1/2 pill in at night. Take 1/2 pill in the morning and 1/2 pill in at night. Do not start before May 13, 2022. Take 1/2 pill in the morning and 1/2 pill in at night. 5 extra this month only for sever pain- 1/2 TID not to exceed 3 half tablets per day. Adjust OTC Tylenol dose accordingly. Take 1/2 tablet up t o twice daily for pain Take 1/2 tablet up t o twice daily for pain [facility] until seen 10/21/22 for increased pain Take 1 tablet by laureano th every 6 hours as needed for pain. Take 1 tablet by laureano th once daily as needed for pain. Take 1 tablet by laureano th once daily as needed for pain for up to 15 days. amoxicillin 875 mg / clavulanate 125 mg oral tablet (1 source) Penicillin-class Antibacterial Start: 03-27-2020 End: 04-01-2020 take 1 tablet by mouth twice daily amoxicillin-clav ulanate (AUGMENTIN) 875-125 MG per tablet Take 1 tablet by mouth 2 times daily for 5 days 10 tablet 0 03/27/2020 04/01/2020 Active apixaban 5 mg oral tablet (20 sources) Factor Xa Inhibitor Start: 06-28-2023 End: 05-23-2025 take 1 tablet by mouth once ELIQUIS 5 mg tab(s) Take 1 tablet by mouth every afternoon. 90 tablet 3 05/23/2024 05/23/2025 Active Start: 01-13-2023 End: 04-13-2023 take 1 tablet by mouth once daily ELIQUIS 5 mg tab(s) Take 1 tablet by mouth once daily. 90 tablet 3 01/13/2023 04/13/2023 Active Start: 10-08-2021 End: 12-17-2022 take 1 tablet by mouth once daily ELIQUIS 5 mg tab(s) TAKE 1 TABLET BY MOUTH EVERY DAY 30 tablet 0 10/20/2022 11/17/2022 Discontinued Start: 03-26-2020 End: 03-26-2020 apixaban (ELIQUIS) tablet 5 mg Start: 03-08-2019 ELIQUIS 5 MG T ABS 1 tablet twice daily APIXABAN [id number] Sandeep Ross MD Comment on above: TAKE 1 TABLET BY LAUREANO TH EVERY DAY Take 1 tablet by laureano th once daily. Take 1 tablet by laureano th every afternoon. azithromycin 500 mg oral tablet (1 source) Macrolide Antimicrobial Start: 03-27-20 End: 03-30-20 take 1 tablet by mouth once daily azithromycin (ZITHROMAX) 500 MG tablet Indications: Pneumonia due to organism Take 1 tablet by mouth daily for 3 days 3 tablet 0 03/27/2020 03/30/2020 Active azithromycin (ZITHROMAX) 500 mg in dextrose 5 % 250 mL IVPB (1 source) Start: 03-26-20 20 azithromycin (ZITHROMAX) 500 mg in dextrose 5 % 250 mL IVPB cefTRIAXone sodium 1 g in sodium chloride 0.9 % 100 mL IVPB (add-vantage) (1 source) Start: 03-26-20 20 cefTRIAXone sodium 1 g in sodium chloride 0.9 % 100 mL IVPB (add-vantage) ciprofloxacin 250 mg oral tablet (2 sources) Quinolone Antimicrobial Start: 06-17-20 24 End: 06-24-20 24 take 1 tablet by mouth twice daily ciprofloxacin HCl (CIPRO) 250 mg tablet Take 1 tablet by mouth two times a day for 7 days. 10 tablet 06/17/2024 06/24/2024 Active Diclofenac (20 sources) Nonsteroidal Anti-inflammatory Drug Start: 12-11-19 25 DICLOFENAC SODIUM TOPICAL Apply 1 application to affected area two times a day. 12/10/2024 Active Start: 04-11-2022 End: 05-11-2022 apply 4 g topically four times daily diclofenac (VOLTAREN) 1 % topical gel Indications: Myofascial pain Apply 4 g to affected area four times daily. 480 g 2 04/11/2022 05/11/2022 Active Comment on above: Apply 4 g to affecte d area four times daily. gabapentin 100 mg oral capsule (20 sources) Anti-epileptic Agent Start: 11-18-2024 End: 11-18-2025 take 2 capsules by mouth twice daily gabapentin (Neurontin) 100 MG capsule Take 2 capsules (200 mg) by mouth 2 times daily. 11/18/2024 11/18/2025 Active Start: 11-12-2024 End: 11-19-2024 take 200 mg by mouth twice daily 200 mg, Oral, 2 times daily, First dose on Mon11/12/24 at 2145 Start: 03-26-2020 End: 05-23-2025 take 1 capsule by mouth twice daily gabapentin (NEURONTIN) 300 mg capsule Take 1 capsule by mouth two times a day. 180 capsule 3 05/23/2024 05/23/2025 Active Comment on above: Take 300 mg by mouth twice daily. Take [address] [facility] twice daily for 90 days. 12 hr guaiFENesin 600 mg extended release oral tablet (2 sources) Start: 2019 End: 2019 take 1 tablet by mouth twice daily guaiFENesin (MUCINEX) 600 MG extended release tablet Take 1 tablet by mouth 2 times daily for 5 days 10 tablet 0 03/27/2020 04/01/2020 Active hydrocortisone 25 mg/ml topical cream (1 source) Corticosteroid Start: 2022 End: 2022 hydrocortisone (ANUSOL-HC) 2.5 % rectal cream Indications: Other hemorrhoids by RECTAL route two times a day for 7 days. 28 g 0 07/05/2023 07/12/2023 Active Comment on above: by RECTAL route two times a day for 7 days. 3 ml insulin lispro 100 unt/ml pen injector (20 sources) Insulin Analog Start: 2024 End: 2025 inject 18 [IU] by subcutaneous injection three times daily before mealtime, then inject 18 [IU] by subcutaneous injection three times daily before mealtime insulin lispro (HUMALOG KWIKPEN INSULIN) 100 unit/mL Indications: Insulin-treated type 2 diabetes mellitus (HCC) Inject 18 Units subcutaneously three times a day before meals. INJECT 18 UNITS SUBCUTANEOUSLY THREE TIMES DAILY BEFORE MEALS. 51 mL 3 12/17/2024 12/17/2025 Active Start: 11-13-2024 End: 11-19-2024 inject 14 [IU] by subcutaneous injection three times daily at mealtime 14 Units, SubCUTAneous, 3 times daily with meals, First dose on Mon11/13/24 at 0800 Start: 01-13-2023 End: 05-23-2024 insulin lispro (HUMALOG KWIK PEN INSULIN) 100 unit/mL Indications: Insulin-treated type 2 diabetes mellitus (HCC) [The details of the medication are not available because there are pending changes by a home health clinician.] 3 mL 2 05/23/2024 Active Start: 10-20-2022 End: 01-18-2023 HUMALOG KWIKPEN INSULIN 100 unit/mL Indications: Insulin-treated type 2 diabetes mellitus (HCC) INJECT 18 UNITS SUBCUTANEOUSLY THREE TIMES DAILY BEFORE MEALS. 45 Each 1 10/20/2022 01/18/2023 Active Start: 04-14-2021 End: 07-18-2022 insulin lispro (HUMALOG KWIK PEN) 100 unit/mL Indications: Insulin-treated type 2 diabetes mellitus (HCC) INJECT 18 UNITS SUBCUTANEOUSLY THREE TIMES DAILY BEFORE MEALS. 3 Pen 3 04/19/2022 07/18/2022 Active Start: 03-26-2020 insulin lispro (HUMALOG) injection vial 0-3 Units Start: 03-08-2019 HUMALOG 100 UN IT/ML SOLN inject 8 units with meals INSULIN LISPRO [id number] Sandeep Ross MD Start: 02-21-2019 insulin lispro (HUMALOG) 100 UNIT/ML injection vial Inject 10 Units into the skin Daily with lunch 1 vial 3 02/21/2019 Active Comment on above: Inject 18 Units subc utaneously three times daily before meals. INJECT 14 UNITS SUBC UTANEOUSLY THREE TIMES DAILY BEFORE MEALS. lisinopril 20 mg oral tablet (20 sources) Angiotensin Converting Enzyme Inhibitor Start: 5 End: 6 take 0.5 tablet by mouth once daily lisinopril (ZESTRIL) 20 mg tablet Take 0.5 tablets by mouth once daily. 90 tablet 3 12/16/2024 12/16/2025 Active Start: 12-11-2024 End: 02-18-2025 take 1 tablet by mouth once daily lisinopril (ZESTRIL) 10 mg tablet Take 1 tablet by mouth once daily. 90 tablet 3 12/11/2024 02/18/2025 Discontinued (Course of therapy completed) Start: 09-12-2024 End: 12-16-2024 lisinopril (ZESTRIL) 20 mg t ablet Indications: Essential (primary) hypertension [The details of the medication are not available because there are pending changes by a home health clinician.] 90 tablet 3 09/12/2024 12/16/2024 Discontinued Start: 01-13-2023 End: 09-12-2025 take 1 tablet by mouth once daily lisinopril (ZESTRIL) 20 mg tablet Indications: Essential (primary) hypertension Take 1 tablet by mouth once daily. 90 tablet 3 09/12/2024 09/12/2025 Active Start: 05-27-2021 End: 11-19-2022 take 1 tablet by mouth once daily lisinopril (ZESTRIL, PRINIVIL) 20 mg tablet Indications: Essential (primary) hypertension TAKE 1 TABLET BY MOUTH EVERY DAY 30 tablet 0 10/20/2022 Active Start: 03-28-2020 take 1 tablet by laureano th once daily lisinopril (PRINIVIL;ZESTRIL) 40 MG tablet Take 1 tablet by mouth daily 30 tablet 0 03/28/2020 Active Start: 03-28-2020 lisinopril ([place] INIVIL;ZESTRIL) tablet 40 mg Start: 03-26-2020 End: 03-27-2020 take 20 mg by mouth once daily 20 mg, Oral, DAILY, Fir st dose on Mon03/26/20 at 0900 Comment on above: Take 1 tablet by laureano th once daily. TAKE 1 TABLET BY LAUREANO TH EVERY DAY Magnesium (17 sources) Start: 12-16-2024 take 1 tablet by mouth once daily Magnesium 250 mg tab Take 250 mg by mouth once daily. 12/16/2024 Active MEDICATION, NON-DATABASE (20 sources) MEDICATION, NON-DATABASE Co q 10 b complex Calcium & vit d Active MEDICATION, NON- DATABASE Co q 10 b complex Calcium & vit d 0 Active Comment on above: Co q 10 b complex Calcium & vit d 24 hr metoprolol succinate 50 mg extended release oral tablet (20 sources) beta-Adrenergic Janice Start: 9 End: 6 take 1 tablet by mouth once daily metoprolol succinate ER (TOPROL XL) 50 mg 24 hr tablet Take 1 tablet by mouth once daily. 90 tablet 3 09/12/2024 09/12/2025 Active Comment on above: Take 1 tablet by laureano th once daily. TAKE 1 TABLET BY LAUREANO TH EVERY DAY Multiple Vitamins-Minerals (CENTRUM SILVER ADULT 50+ PO) (2 sources) take 1 dose by mouth once daily Multiple Vitamins-Minerals (CENTRUM SILVER ADULT 50+ PO) Take 1 Dose by mouth daily. Active MULTIVITAMIN ORAL (20 sources) Start: 5 take 1 tablet by mouth once daily MULTIVITAMIN ORAL Take 1 tablet by mouth once daily. 12/06/2024 Active MV with Uwd-Lsjzidaj-Idoncj (CENTRUM SILVER) 0.4-300-250 mg-mcg-mcg tab (20 sources) Start: 6 MV with Zsb-Fvvirhzh-Jsmwgg (CENTRUM SILVER) 0.4-300-250 mg-mcg-mcg tab Centrum Silver Tablet Centrum Silver Tablet Active 1 TAB DAILY December 23, 2015 3:40pm 12-23-2015 [facility] ([id number]) 12/23/2015 Active Start: 12-23-2015 MV with Min-Ly copene-Lutein (CENTRUM SILVER) 0.4-300-250 mg-mcg-mcg tab Centrum Silver Tablet Centrum Silver Tablet Active 1 TAB DAILY December 23, 2015 3:40pm 12-23-2015 [facility] ([id number]) 0 12/23/2015 Active Comment on above: Centrum Silver Table t Centrum Silver Tablet Active 1 TAB DAILY December 23, 2015 3:40pm 12-23-2015 [facility] ([id number]) NON FORMULARY (2 sources) NON FORMULARY Ta ke 1 Dose by mouth as needed. Active omeprazole 40 mg delayed release oral capsule (20 sources) Proton Pump Inhibitor Start: 1 End: 6 take 1 capsule by mouth twice daily omeprazole (PRILOSEC) 40 mg capsule Indications: Gastro-esophageal reflux disease without esophagitis Take 1 capsule by mouth two times a day. 180 capsule 3 12/17/2024 12/17/2025 Active take 1 capsule by mouth twice da jennifer omeprazole (PRILOSEC) 20 MG delayed release capsule Take 20 mg by mouth 2 times daily 0 Active Comment on above: TAKE 1 CAPSULE BY MO UT TWICE A DAY Take 1 capsule by mo ut twice daily. ondansetron 4 mg disintegrating oral tablet (20 sources) Serotonin-3 Receptor Antagonist Start: 11-24-19 End: 02-19-20 25 take 1 tablet by mouth every eight hours as needed for nausea ondansetron orally disintegrating (ZOFRAN ODT) 4 mg disintegrating tablet Indications: Nausea and vomiting, unspecified vomiting type Take 1 tablet by mouth every 8 hours as needed for nausea/vomiting. 30 tablet 5 02/18/2025 Active Start: 03-26-2020 take 4 mg by mouth e very six hours as needed for nausea 4 mg, Intravenous, EVERY 6 HOURS PRN, Nausea, Vomiting, Starting Grace 03/26/20 at 0246 Administer if oral route cannot be used. Comment on above: Take 1 tablet by [facility] every 8 hours as needed for nausea/vomiting. oxyCODONE hydrochloride 5 mg oral tablet (1 source) Opioid Agonist Start: 022 End: oxyCODONE IR (ROXICODONE) 5 mg immediate release tablet Indications: Primary osteoarthritis of both hips , Lumbar spondylosis , Primary osteoarthritis of right knee , Myofascial pain , Spinal stenosis of lumbar region with neurogenic claudication Take 1/2 in morning and 1/2 in evening Do not start before July 31, 2022. 30 tablet 0 07/31/2022 08/30/2022 Active Comment on above: Take 1/2 in morning and 1/2 in evening Do not start before July 31, 2022. phenazopyridine hydrochloride 99.5 mg oral tablet (20 sources) Start: take 99.5 mg by mouth once daily as needed for pain phenazopyridine HCl (AZO ORAL) Take 99.5 mg by mouth once daily as needed (bladder pain). 12/16/2024 Active End: 11-19-2024 take 25 mg by mouth once daily PHENAZOPYRIDINE HCL PO Take 25 mg by mouth daily. 11/19/2024 Discontinued (Stop taking at discharge) phenazopyridine HCl (AZO ORAL) Take by mouth. Gummies OTC Active phenazopyridine HCl (AZO ORAL) Take by mouth. Gummies OTC 0 Active Comment on above: Take by mouth. Gummi es OTC Potassium Chloride (2 sources) take 99 doses by mouth once daily POTASSIUM CHLORIDE PO Take 99 each by mouth daily. Over the counter medication Active POTASSIUM-99 ORAL (20 sources) Start: 12-16-2024 POTASSIUM-99 ORAL Take 1 tablet by mouth every 48 hours. 12/16/2024 Active Start: 12-16-2024 take 1 tablet by laureano once daily POTASSIUM-99 ORAL Take 1 tablet by mouth once daily. Patient should start on December 16, 2024. 12/16/2024 Active POTASSIUM-99 ORA L Take by mouth. Active POTASSIUM-99 ORA L Take by mouth. 0 Active Comment on above: Take by mouth. 3 ml sodium chloride 9 mg/ml injection (4 sources) Start: 03-26-2020 10 mL, Intrave nous, EVERY 12 HOURS SCHEDULED (2 times per day), First dose on Grace 03/26/20 at 0900 Start: 03-26-2020 take 10 mL intraveno us route once as needed 10 mL, Intravenous, PRN, Line Care, After every IV line use, Starting Grace 03/26/20 at 0246 Start: 03-25-2020 0.9 % sodium c hloride infusion Start: 03-25-2020 End: 03-25-2020 0.9 % sodium chloride bolus sodium chloride flush 0.9 % injection 3 mL (1 source) Start: 03-25-2020 sodium chloride flush 0.9 % injection 3 mL sulfamethoxazole 800 mg / trimethoprim 160 mg oral tablet (5 sources) Dihydrofolate Reductase Inhibitor Antibacterial, Sulfonamide Antimicrobial Start: 06-13-2024 End: 06-18-2024 take 1 tablet by mouth twice daily sulfamethoxazol e-trimethoprim (BACTRIM DS) 800-160 mg per tablet Take 1 tablet by mouth two times a day for 5 days. 10 tablet 06/13/2024 06/18/2024 Active Start: 07-04-2023 End: 07-07-2023 take 1 tablet by mouth twice daily sulfamethoxazole-trimethoprim (BACTRIM D S) 800-160 mg per tablet Take 1 tablet by mouth two times a day for 3 days. 10 tablet 0 07/04/2023 07/07/2023 Comment on above: Take 1 tablet by laureano th two times a day for 3 days. ubidecarenone 10 mg oral capsule (20 sources) Start: take 1 capsule by mouth once daily ubidecarenone Q-10 (CO Q-10) 10 mg cap Take 10 mg by mouth once daily. 12/06/2024 Active Completed/Discontinued Medications Medication Drug Class(es) Dates Sig (Normalized) Sig (Original) Acetaminophen (20 sources) Start: 11-11-2024 End: 11-19-2024 take 1 tablet by mouth every six hours as needed for pain and fever acetaminophen (Tylenol) tablet 650 mg Start: 04-11-2022 End: 05-11-2022 take 1 tablet by mouth every twelve hours as needed for pain acetaminophen (TYLENOL EXTRA STRENGTH) 500 mg tablet Indications: Lumbar spondylosis Take 1 tablet by mouth every 12 hours as needed (for pain). 60 tablet 2 04/11/2022 05/11/2022 Active Start: 03-26-2020 acetaminophen (TYLENOL) tablet 650 mg Start: 03-25-2020 End: 03-25-2020 acetaminophen (TYLENOL) tabl et 650 mg Start: 03-08-2019 End: 04-11-2022 acetaminophen (TYLENOL) 325 mg tablet Take by mouth every 6 hours as needed. 0 03/08/2019 04/11/2022 Discontinued Start: 03-08-2019 ACETAMINOPHEN 325 MG TABS 2 tablets (650mg) every 6 hours as needed for pain or elevated temp.- Not to exceed 3000mg in 24 hours ACETAMINOPHEN [id number] Benedict Larose RN Comment on above: Take by mouth every 6 hours as needed. Take 1 tablet by laureano every 12 hours as needed (for pain). albuterol 0.83 mg/ml inhalant solution (3 sources) beta2-Adrenergic Agonist Start: 03-25-2020 End: 03-25-2020 albuterol (PROVENTIL) nebulizer solution 2.5 mg albuterol 0.833 mg/ml / ipratropium bromide 0.167 mg/ml inhalation solution (20 sources) Anticholinergic, beta2-Adrenergic Agonist Start: 11-12-2024 End: 11-19-2024 Start: 05-17-2021 End: 07-07-2022 ipratropium-albuterol (DUONE B) 0.5 mg-3 mg(2.5 mg base)/3 mL nebu USE 1 VIAL IN NEBULIZER 4 TIMES DAILY 120 Each 11 06/07/2022 Active Start: 03-25-2020 End: 03-25-2020 ipratropium-albuterol (DUONE B) nebulizer solution 1 ampule ipratropium-albu terol (Duo-Neb) 0.5-2.5 mg/3 mL nebulizer solution Take 3 mL by nebulization 2 times daily as needed for shortness of breath. Active Comment on above: USE 1 VIAL IN NEBULI ZER 4 TIMES DAILY amlodipine bes/olmesartan med (CHARITY ORAL) (20 sources) Start: 12-06-2024 End: 02-18-2025 take 99.5 mg by mouth once daily as needed for pain amlodipine bes/olmesartan med (CHARITY ORAL) Take 99.5 mg by mouth once daily. as needed for pain 12/06/2024 02/18/2025 Discontinued (Course of therapy completed) Start: 12-06-2024 take 99.5 mg by mout h once daily as needed for pain amlodipine bes/olmesartan med (CHARITY ORAL) Take 99.5 mg by mouth once daily. as needed for pain 12/06/2024 Active B Complex Vitamins (B COMPLEX PO) (2 sources) End: 11-19-2024 take 1 dose by mouth once daily B Complex Vitamins (B COMPLEX PO) Take 1 Dose by mouth daily. 11/19/2024 Discontinued (Stop taking at discharge) CALCIUM-CHOLECALCIFERO L PO (2 sources) End: 11-19-2024 take 1 dose by mouth once daily CALCIUM-CHOLECALCI FEROL PO Take 1 Dose by mouth daily. 11/19/2024 Discontinued (Stop taking at discharge) cefTRIAXone (Rocephin) 1,000 mg in sodium chloride 0.9 % 50 mL IVPB Mini-Bag Plus (2 sources) Start: 11-15-2024 End: 11-17-2024 1,000 mg, IntraVENous, at 100 mL/hr, Administer over 30 Minutes, Every 24 hours, First dose on Mon11/15/24 at 1800, For 3 days, Mini-Bag Plus bag, Suspected Indication (Select all that apply): Pneumonia (CAP) cholecalciferol 9.52 unt/ml / glucose 357 mg/ml oral gel (2 sources) Vitamin D Start: 11-12-2024 End: 11-19-2024 15 g, Oral, As needed, low blood sugar, Starting on Mon11/12/24 at 0102, If blood glucose less than 50 mg/dL and patient ALERT and NOT NPO, give 2 tubes glucose gel. If blood glucose less than 70 mg/dL and patient ALERT and NOT NPO, give 1 tube glucose gel. Repeat blood glucose in 15 minutes. If blood glucose is less than 70 mg/dL, repeat treatment and recheck blood glucose in 15 minutes x2 and notify provider. citalopram 40 mg oral tablet (20 sources) Serotonin Reuptake Inhibitor Start: 02-20-2019 End: 03-26-2020 CELEXA 40 MG TABS 1 tablet once daily CITALOPRAM HYDROBROMIDE [id number] Benedict Larose RN End: 05-23-2024 take 1 tablet by mouth every twenty-four hours citalopram (CELEXA) 40 mg tablet Take 40 mg by mouth q 24 HR. 05/23/2024 Discontinued Comment on above: Take 40 mg by mouth q 24 HR. Coenzyme Q10 (CO Q 10 PO) (2 sources) End: take 1 dose by mouth once daily Coenzyme Q10 (CO Q 10 PO) Take 1 Dose by mouth daily. 11/19/2024 Discontinued (Stop taking at discharge) dexamethasone phosphate 10 mg/ml injectable solution (1 source) Corticosteroid Start: End: dexamethasone (DECADRON) injection 6 mg docusate sodium 100 mg oral capsule (20 sources) Start: 023 End: take 1 capsule by mouth once daily as needed for constipation docusate sodium (COLACE) 100 mg capsule Take 1 capsule by mouth once daily as needed for constipation. 90 capsule 3 01/13/2023 02/18/2025 Discontinued (Course of therapy completed) Start: 02-20-2019 docusate sodiu m (COLACE) 100 mg capsule Take by mouth. 0 03/08/2019 Active Comment on above: Take by mouth. Take [address] [facility] once daily as needed for constipation. 0.4 ml enoxaparin sodium 100 mg/ml prefilled syringe (1 source) Low Molecular Weight Heparin Start: 02-21-2019 End: 03-27-2020 enoxaparin (LOVENOX) 40 MG/0.4ML injection Inject 0.4 mLs into the skin daily 14 Syringe 3 02/21/2019 03/27/2020 Discontinued (Stop Taking at Discharge) glucagon (rdna) 1 mg injection (3 sources) Antihypoglycemic Agent Start: 11-12-2024 End: 11-19-2024 1 mg, IntraMUSCular, PRN, low blood sugar, Blood glucose less than 70 mg/dL and patient NOT ALERT or NPO and does not have IV access., Starting on Mon11/12/24 at 0102, After administration, attempt intravenous access and start D5W at 100 mL/hr. Repeat blood glucose in 15 minutes x2 and notify provider. Start: 03-26-2020 take 1 mL intravenou s route every hour 1 mg, Intramuscular, PRN, Low blood sugar, Blood glucose less than 70 mg/dL and patient NOT ALERT or NPO and does not have IV access., Starting Grace 03/26/20 at 0248 After administration, attempt intravenous access and start D5W at 100 mL/hr. Repeat blood glucose in 15 minutes x2 and notify provider. 50 ml glucose 50 mg/ml injection (7 sources) Start: 11-12-2024 End: 11-19-2024 100 mL/hr, IntraVENous, PRN, Blood sugar less than 70mg/dL, Starting on Mon11/12/24 at 0102, Start infusion following administration of dextrose 50% or glucagon. Start: 11-12-2024 End: 11-19-2024 12.5 g, IntraVENous, PRN, lo w blood sugar, Blood glucose less than 70 mg/dL and patient NOT ALERT or NPO., Starting on Mon11/12/24 at 0102, If patient does not respond within 5 minutes, repeat dose x1. Start D5W at 100 mL/hour until ordering provider can be reached. Repeat blood glucose in 15 minutes. If blood glucose is less than 70 mg/dL, repeat treatment and recheck blood glucose in 15 minutes x2. If using Glucostabilizer, dose as instructed per system. Start: 03-26-2020 15 g, Oral, NJ N, Low blood sugar, Starting Grace 03/26/20 at 0248 If blood glucose less than 50 mg/dL and patient ALERT and TOLERATING PO, give 2 tubes glucose gel. If blood glucose less than 70 mg/dL and patient ALERT and TOLERATING PO, give 1 tube glucose gel. Repeat blood glucose in 15 minutes. If blood glucose is less than 70 mg/dL, repeat treatment and recheck blood glucose in 15 minutes x2 and notify provider. Start: 03-26-2020 12.5 g, Intrav enous, PRN, Low blood sugar, Blood glucose less than 70 mg/dL and patient NOT ALERT or NPO., Starting Grace 03/26/20 at 0248 If patient does not respond within 5 minutes, repeat dose x1. Start D5W at 100 mL/hour until ordering provider can be reached. Repeat blood glucose in 15 minutes. If blood glucose is less than 70 mg/dL, repeat treatment and recheck blood glucose in 15 minutes x2. If using Glucostabilizer, dose as instructed per system. Start: 03-26-2020 100 mL/hr, Int ravenous, at 100 mL/hr, PRN, Low blood sugar, Starting Grace 03/26/20 at 0248 Start infusion following administration of dextrose 50% or glucagon. 250 ml glucose 50 mg/ml / sodium chloride 4.5 mg/ml injection (2 sources) Start: 11-11-2024 End: 11-12-2024 take 75 mL intravenously every hour 75 mL/hr, IntraVENous, Continuous, Starting on Mon11/11/24 at 2310 1 ml hydrALAZINE hydrochloride 20 mg/ml injection (2 sources) Arteriolar Vasodilator Start: 11-14-2024 End: 11-19-2024 take 5 mg intravenously every four hours as needed for hypertension 5 mg, IntraVENous, Every 4 hours PRN, high blood pressure, sbp greater than 160, Starting on Grace 11/14/24 at 0341 hydrOXYzine pamoate 25 mg oral capsule (20 sources) Antihistamine Start: 11-24-2023 End: 02-18-2025 take 1 capsule by mouth once daily at bedtime hydrOXYzine pamoate (VISTARIL) 25 mg capsule Indications: Chronic insomnia Take 1-2 capsules by mouth daily at bedtime. 60 capsule 5 11/24/2023 02/18/2025 Discontinued (Course of therapy completed) Comment on above: Take 1-2 capsules by mouth daily at bedtime. ibuprofen 800 mg oral tablet (9 sources) Nonsteroidal Anti-inflammatory Drug End: 04-11-2022 take 1 tablet by mouth every eight hours as needed ibuprofen (MOTRIN) 800 mg tablet Take 800 mg by mouth every 8 hours as needed. 0 04/11/2022 Discontinued take 1 tablet by laureano th twice daily as needed for pain ibuprofen (ADVIL;MOTRIN) 800 MG tablet T kloby 800 mg by mouth 2 times daily as needed for Pain 0 Active Comment on above: Take 800 mg by mouth every 8 hours as needed. insulin glargine 100 unt/ml injectable solution (20 sources) Insulin Analog Start: 11-12-2024 End: 11-19-2024 inject 18 [IU] by subcutaneous injection once daily 18 Units, SubCUTAneous, Nightly, First dose on Mon11/12/24 at 2145 Start: 02-05-2024 End: 05-23-2024 insulin glargine (LANTUS VINCE OSTAR U-100 INSULIN) 100 unit/mL (3 mL) Indications: Insulin-treated type 2 diabetes mellitus (HCC) Inject 18 Units subcutaneously daily at bedtime. 3 mL 4 05/23/2024 Active Start: 01-13-2023 insulin glargi ne (LANTUS SOLOSTAR U-100 INSULIN) 100 unit/mL (3 mL) Indications: Insulin-treated type 2 diabetes mellitus (HCC) Inject 18 Units subcutaneously daily at bedtime. 1 Each 5 01/13/2023 Active Start: 01-13-2023 insulin glargi ne (LANTUS SOLOSTAR U-100 INSULIN) 100 unit/mL (3 mL) Indications: Insulin-treated type 2 diabetes mellitus (HCC) Inject 18 Units subcutaneously daily at bedtime. 1 Each 5 01/13/2023 Active Start: 04-14-2021 End: 02-27-2022 insulin glargine (LANTUS VINCE OSTAR U-100 INSULIN) 100 unit/mL (3 mL) Indications: Insulin-treated type 2 diabetes mellitus (HCC) Inject 18 Units subcutaneously daily at bedtime. 1 Pen 5 01/28/2022 Active Start: 03-26-2020 inject 24 [IU] by de la cruz bcutaneous injection once daily 24 Units, Subcutaneous, NIGHTLY, First dose on Grace 03/26/20 at 2100 Start: 04-18-2018 LANTUS 100 UNI T/ML SOLN inject 24 units once daily INSULIN GLARGINE [id number] Sandeep Ross MD Comment on above: Inject 18 Units subc utaneously daily at bedtime. insulin lispro (HUMALOG KWIKPEN) 100 unit/mL (3 sources) Start: 04-19-2022 End: 10-20-2022 insulin lispro (HUMALOG KWIKPEN) 100 unit/mL Indications: Insulin-treated type 2 diabetes mellitus (HCC) INJECT 18 UNITS SUBCUTANEOUSLY THREE TIMES DAILY BEFORE MEALS. 3 Pen 3 04/19/2022 10/20/2022 Discontinued Start: 04-19-2022 insulin lispro (HUMALOG KWIKPEN) 100 unit/mL Indications: Insulin-treated type 2 diabetes mellitus (HCC) INJECT 18 UNITS SUBCUTANEOUSLY THREE TIMES DAILY BEFORE MEALS. 3 Pen 3 04/19/2022 Active Comment on above: INJECT 18 UNITS SUBC UTANEOUSLY THREE TIMES DAILY BEFORE MEALS. Insulin Lispro (Humalog) injection 0-12 Units (2 sources) Start: 5 End: 5 Insulin Lispro (Humalog) injection 0-12 Units iopamidol (ISOVUE-370) 76 % injection 75 mL (1 source) Start: 0 End: 0 iopamidol (ISOVUE-370) 76 % injection 75 mL magnesium gluconate 550 mg oral tablet (20 sources) End: 5 take 1 tablet by mouth once daily Magnesium 30 mg tablet Take 30 mg by mouth. daily 02/18/2025 Discontinued (Course of therapy completed) take 1 tablet by mouth twice sandhya ly Magnesium 30 mg tablet Take 30 mg by mouth two times a day. Active Comment on above: Take 30 mg by mouth two times a day. magnesium hydroxide 80 mg/ml oral suspension (20 sources) Start: 03-08-2019 End: 05-23-2024 magnesium hydroxide (MOM) 400 mg/5 mL suspension Take by mouth as needed. 03/08/2019 05/23/2024 Discontinued (Course of therapy completed) Start: 04-18-2018 MILK OF CHANDLER IA 400 MG/5ML SUSP 30mL as needed for constipation daily MAGNESIUM HYDROXIDE [id number] Benedict Larose RN Comment on above: Take by mouth as nee ded. mirtazapine 15 mg oral tablet (20 sources) Start: 11-12-2024 End: 11-19-2024 take 45 mg by mouth once daily 45 mg, Oral, Nightly, First dose on Mon11/12/24 at 2145 Start: 08-13-2024 End: 11-08-2025 take 1 tablet by mouth once daily at bedtime mirtazapine (REMERON) 45 mg tablet Indications: Other depression , Decreased appetite Take 1 tablet by mouth daily at bedtime. 90 tablet 1 11/08/2024 11/08/2025 Active Start: 05-23-2024 End: 09-04-2024 take 1 tablet by mouth once daily at bedtime, then take 2 tablets by mouth once daily at bedtime, then take 3 tablets by mouth once daily at bedtime mirtazapine (REMERON) 15 mg tablet Indications: Other depression , Decreased appetite Take 1 tablet by mouth daily at bedtime for 7 days, THEN 2 tablets daily at bedtime for 7 days, THEN 3 tablets daily at bedtime. 291 tablet 05/23/2024 08/13/2024 Discontinued MULTIPLE VITAMINS-MINERALS (1 source) Start: 03-08-2019 MULTI-VITAMIN/MINERALS TABS 1 tablet once daily MULTIPLE VITAMINS-MINERALS [id number] Benedict Larose RN nitrofurantoin, macrocrystals 25 mg / nitrofurantoin, monohydrate 75 mg oral capsule (20 sources) Nitrofuran Antibacterial Start: 06-14-2024 End: 02-18-2025 take 1 capsule by mouth twice daily nitrofurantoin monohydrate and macrocrystal (MACROBID) 100 mg capsule Take 1 capsule by mouth two times a day. 10 capsule 06/14/2024 02/18/2025 Discontinued (Course of therapy completed) ondansetron ODT (Zofran-ODT) disintegrating tablet 4 mg (2 sources) Start: 11-11-2024 End: 11-19-2024 take 1 tablet by mouth every eight hours as needed for nausea and vomiting ondansetron ODT (Zofran-ODT) disintegrating tablet 4 mg 24 hr oxybutynin chloride 10 mg extended release oral tablet (2 sources) Cholinergic Muscarinic Antagonist Start: 03-15-2017 End: 03-26-2020 OXYBUTYNIN CHLORIDE ER 10 MG [id number] 1 tablet once daily OXYBUTYNIN CHLORIDE [id number] Terena Lraose RN pantoprazole (5 sources) Proton Pump Inhibitor Start: 11-13-2024 End: 11-19-2024 pantoprazole (ProtoNix) EC tablet 40 mg Start: 02-21-2019 PANTOPRAZOLE S ODIUM 40 MG TBEC 1 tablet once daily PANTOPRAZOLE SODIUM [id number] Terena Larose RN pantoprazole (ProtoNix) 40 mg in sodium chloride (PF) 0.9 % 10 mL injection (2 sources) Start: 11-11-2024 End: 11-11-2024 40 mg, IntraVENous, Administer over 2 Minutes, Once, On 11/11/24 at 2150, For 1 dose, Reconstitute with 10 ml NS. Vial expires 2 hrs after reconstitution. 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 0 03/26/2020 Discontinued Problems Active Problems Problem Classification Problem Date Documented Date Episodic/Chronic Anxiety disorders (3 sources) Generalized anxiety disorder; Translations: [Generalized anxiety disorder] Onset: 11-18-2024 02-17-2025 Chronic Asthma (3 sources) Uncomplicated asthma; Translations: [Unspecified asthma, uncomplicated] Onset: 04-18-2018 02-17-2025 Chronic Coagulation and hemorrhagic disorders (3 sources) Blood coagulation disorder; Translations: [Coagulation defect, unspecified] Onset: 11-18-2024 02-17-2025 Chronic Delirium dementia and amnestic and other cognitive disorders (20 sources) Dementia; Translations: [Behavioral disturbance co-occurrent and due to late onset Alzheimer dementia] Onset: 04-17-2018 04-17-2018 Chronic Diabetes mellitus with complications (6 sources) 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; Translations: [Type 2 diabetes mellitus with diabetic autonomic (poly)neuropathy] Onset: 11-18-2024 11-24-2023 Chronic Diabetes mellitus without complication (20 sources) Type 1 diabetes mellitus; Translations: [Type 2 diabetes mellitus] Onset: 07-03-2016 07-03-2016 Chronic Diseases of white blood cells (3 sources) Leukocytosis; Translations: [Elevated white blood cell count, unspecified] Onset: 11-18-2024 02-17-2025 Chronic Disorders of lipid metabolism (20 sources) Mixed hyperlipidemia; Translations: [Mixed hyperlipidemia] Onset: 02-02-2022 12-14-2020 Chronic Esophageal disorders (20 sources) Gastroesophageal reflux disease without esophagitis; Translations: [Gastro-esophageal reflux disease without esophagitis] Onset: 02-02-2022 Chronic Essential hypertension (20 sources) Essential hypertension; Translations: [Essential (primary) hypertension] Onset: 02-02-2022 Chronic Fever of unknown origin (1 source) Disorder characterized by fever; Translations: [Febrile illness] Episodic Hemorrhoids (1 source) Hemorrhoids; Translations: [Other hemorrhoids] 07-05-2023 Episodic Miscellaneous mental health disorders (20 sources) Chronic insomnia; Translations: [Psychophysiologic insomnia] Onset: 01-23-2023 01-23-2023 Chronic Mood disorders (10 sources) Depressive disorder; Translations: [Other specified depressive episodes] Onset: 04-18-2018 05-23-2024 Chronic Osteoarthritis (20 sources) Generalized arthritis; Translations: [Unspecified osteoarthritis, unspecified site] Onset: 12-14-2020 12-14-2020 Chronic Other acquired deformities (1 source) Spondylolysis; Translations: [Spondylolysis, lumbar region] Episodic Other connective tissue disease (2 sources) Myofascial pain; Translations: [Myalgia, other site] Episodic Other endocrine disorders (3 sources) Hypoglycemia; Translations: [Hypoglycemia, unspecified] Onset: 02-17-2025 02-17-2025 Chronic Other nervous system disorders (1 source) Chronic pain syndrome; Translations: [Chronic pain syndrome] 05-23-2024 Chronic Other nervous system disorders (1 source) Chronic pain syndrome; Translations: [Chronic pain syndrome] Onset: 05-23-2024 Chronic Other nervous system disorders (1 source) Other chronic pain; Translations: [Chronic midline low back pain without sciatica] Onset: 05-23-2024 Chronic Other nervous system disorders (1 source) Other disorders of nervous system; Translations: [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)] Onset: 02-17-2025 Episodic Other non-traumatic joint disorders (1 source) Chronic ankle pain; Translations: [Pain in right ankle and joints of right foot] 11-24-2023 Episodic Other non-traumatic joint disorders (1 source) Hip pain; Translations: [Pain in right hip] 05-23-2024 Episodic Other nutritional; endocrine; and metabolic disorders (20 sources) Obese class I; Translations: [Obesity, unspecified] Onset: 01-23-2023 01-23-2023 Chronic Other nutritional; endocrine; and metabolic disorders (1 source) Obesity; Translations: [Obesity, unspecified] 11-24-2023 Chronic Other nutritional; endocrine; and metabolic disorders (3 sources) Overweight in adulthood with body mass index of 25 or more but less than 30; Translations: [Overweight] 04-19-2024 Episodic Other nutritional; endocrine; and metabolic disorders (3 sources) Decrease in appetite; Translations: [Anorexia] 05-23-2024 Episodic Pneumonia (except that caused by tuberculosis or sexually transmitted disease) (1 source) Infective pneumonia; Translations: [Pneumonia due to organism] Episodic Residual codes; unclassified (1 source) Altered mental status; Translations: [Altered mental status, unspecified altered mental status type] Episodic Residual codes; unclassified (6 sources) Confusional state; Translations: [Disorientation, unspecified] Onset: 11-11-2024 11-11-2024 Episodic Residual codes; unclassified (2 sources) Disorientation, unspecified; Translations: [Disorientation, unspecified] Onset: 11-11-2024 Episodic Spondylosis; intervertebral disc disorders; other back problems (20 sources) Lumbar spondylosis; Translations: [Spondylosis without myelopathy or radiculopathy, lumbar region] Onset: 07-11-2023 Chronic Unclassified (1 source) NO SHOW Unclassified (1 source) 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); Translations: [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)] Onset: 04-29-2021 Unclassified (1 source) Chronic midline low back pain without sciatica; Translations: [Chronic midline low back pain without sciatica] Onset: 05-23-2024 Past or Other Problems Problem Classification Problem Date Documented Da te Episodic/Chronic Administrative/social admission (3 sources) Need for personal care assistance; Translations: [Need for assistance with personal care] Onset: 8 02-17-2025 Episodic Deficiency and other anemia (3 sources) Anemia; Translations: [Anemia, unspecified] Onset: 5 02-17-2025 Episodic Fracture of neck of femur (hip) (4 sources) Closed fracture of hip; Translations: [Closed intertrochanteric fracture] Onset: 9 02-16-2019 Episodic Gastrointestinal hemorrhage (8 sources) Rectal hemorrhage; Translations: [Hemorrhage of anus and rectum] Onset: 5 07-05-2023 Episodic Genitourinary symptoms and ill-defined conditions (3 sources) Increased frequency of urination; Translations: [Frequency of micturition] Onset: 4 07-05-2023 Episodic Nausea and vomiting (6 sources) Nausea and vomiting; Translations: [Nausea with vomiting, unspecified] Onset: 4 11-24-2023 Episodic Other aftercare (1 source) alf (current) use of insulin; Translations: [Insulin-treated type 2 diabetes mellitus (HCC)] Onset: 1 Episodic Other connective tissue disease (20 sources) Recurrent falls ; Translations: [Repeated falls] Onset: 4 04-19-2024 Episodic Other connective tissue disease (3 sources) Muscle weakness; Translations: [Muscle weakness (generalized)] Onset: 8 02-17-2025 Episodic Other connective tissue disease (1 source) Repeated falls; Translations: [Recurrent falls] Onset: 4 Episodic Other diseases of veins and lymphatics (3 sources) Disorder of vein; Translations: [Disorder of vein, unspecified] Onset: 5 02-17-2025 Episodic Other injuries and conditions due to external causes (1 source) Encounter for examination and observation following other accident; Translations: [Encounter for examination and observation following other accident] Onset: 4 Episodic Other nervous system disorders (3 sources) Abnormal gait; Translations: [Unspecified abnormalities of gait and mobility] Onset: 8 02-17-2025 Episodic Other non-traumatic joint disorders (1 source) Pain in right hip; Translations: [Bilateral hip pain] Onset: 4 Episodic Other non-traumatic joint disorders (1 source) Pain in left hip; Translations: [Bilateral hip pain] Onset: 4 Episodic Other nutritional; endocrine; and metabolic disorders (1 source) Overweight; Translations: [Overweight with body mass index (BMI) of 29 to 29.9 in adult] Onset: 4 Episodic Other nutritional; endocrine; and metabolic disorders (1 source) Body mass index (BMI) 29.0-29.9, adult; Translations: [Overweight with body mass index (BMI) of 29 to 29.9 in adult] Onset: 4 Episodic Other nutritional; endocrine; and metabolic disorders (1 source) Anorexia; Translations: [Decreased appetite] Onset: 4 Episodic Other screening for suspected conditions (not mental disorders or infectious disease) (20 sources) Patient encounter status; Translations: [Encounter for screening for other suspected endocrine disorder] Onset: 1 12-14-2020 Episodic Phlebitis; thrombophlebitis and thromboembolism (9 sources) Acute deep vein thrombosis of lower limb; Translations: [Acute embolism and thrombosis of unspecified deep veins of unspecified lower extremity] Onset: 6 07-03-2016 Episodic Residual codes; unclassified (2 sources) Edema of lower extremity; Translations: [Bilateral lower extremity edema] Onset: 8 07-31-2018 Episodic Residual codes; unclassified (4 sources) Bilateral lower limb edema; Translations: [Localized edema] Onset: 8 06-19-2022 Episodic Residual codes; unclassified (3 sources) Edema; Translations: [Edema, unspecified] Onset: 5 02-17-2025 Episodic Residual codes; unclassified (3 sources) Postoperative state; Translations: [Other specified postprocedural states] Onset: 5 02-17-2025 Episodic Spondylosis; intervertebral disc disorders; other back problems (20 sources) Chronic low back pain; Translations: [Chronic midline low back pain without sciatica] Onset: 4 Episodic Unclassified (1 source) Problem Urinary tract infections (20 sources) Urinary tract infectious disease; Translations: [Recurrent urinary tract infection] Onset: 8 Resolved: 8 05-15-2018 Episodic Results Test Name Value Interpretation Reference Range Facility [facility] 02-18-2025 CNOV Office Visit (FPDOYL ) MARGARITA BETANCOURT ([id number]) 1940 F Date Time Provider Department 02/18/25 2:30 PM JONN KRISHNAMURTHY During your visit today, we recorded the following information about you: Temperature Pulse Blood pressure Weight 99.3 degrees 85/minute 130/80 74.4 kg Height 1.575 m Jonn Krishnamurthy DO 02/26/2025 10:16 PM Signed Subjective Review of Systems 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 2 diabetes mellitus Dyspnea Edema of upper extremity Fatigue Female stress incontinence Generalized anxiety disorder GERD (gastroesophageal reflux disease) Hip joint painful on movement Insomnia Insulin-treated type 2 diabetes mellitus (HCC) Mixed hyperlipidemia Muscle weakness (generalized) Obesity (BMI 30-39.9) Poor short term memory Premature beats Superficial thrombophlebitis Type 2 diabetes mellitus without complication (HCC) Urinary tract infectious disease PAST SURGICAL HISTORY Procedure Laterality Date BLADDER SURGERY HX LIGATE FALLOPIAN TUBE REPAIR EPIGASTRIC HERNIA,REDUC REVISE MEDIAN N/CARPAL TUNNEL SURG TOTAL ABDOM HYSTERECTOMY 09/04/1983 FAMILY HISTORY Problem Relation Age of Onset Colon Cancer Brother other (myocardial infarction) Brother Social History Tobacco Use Smoking status: Never Smokeless tobacco: Never Vaping Use Vaping status: Never Used Substance Use Topics Alcohol use: Never Drug use: Never Current Outpatient Medications Medication Sig insulin lispro (HUMALOG KWIKPEN INSULIN) 100 unit/mL Inject 18 Units subcutaneously three times a day before meals. INJECT 18 UNITS SUBCUTANEOUSLY THREE TIMES DAILY BEFORE MEALS. omeprazole (PRILOSEC) 40 mg capsule Take 1 capsule by mouth two times a day. Magnesium 250 mg tab Take 250 mg by mouth once daily. lisinopril (ZESTRIL) 20 mg tablet Take 0.5 tablets by mouth once daily. DICLOFENAC SODIUM TOPICAL Apply 1 application to affected area two times a day. MULTIVITAMIN ORAL Take 1 tablet by mouth once daily. ubidecarenone Q-10 (CO Q-10) 10 mg cap Take 10 mg by mouth once daily. mirtazapine (REMERON) 45 mg tablet Take 1 tablet by mouth daily at bedtime. ondansetron orally disintegrating (ZOFRAN ODT) 4 mg disintegrating tablet Take 1 tablet by mouth every 8 hours as needed for nausea/vomiting. metoprolol succinate ER (TOPROL XL) 50 mg 24 hr tablet Take 1 tablet by mouth once daily. insulin glargine (LANTUS SOLOSTAR U-100 INSULIN) 100 unit/mL (3 mL) Inject 18 Units subcutaneously daily at bedtime. gabapentin (NEURONTIN) 300 mg capsule Take 1 capsule by mouth two times a day. ELIQUIS 5 mg tab(s) Take 1 tablet by mouth every afternoon. phenazopyridine HCl (AZO ORAL) Take by mouth. Gummies OTC POTASSIUM-99 ORAL Take 1 tablet by mouth every 48 hours. ipratropium-albuterol (DUONEB) 0.5 mg-3 mg(2.5 mg base)/3 mL nebu USE 1 VIAL IN NEBULIZER 4 TIMES DAILY MEDICATION, NON-DATABASE Co q 10 b complex Calcium AND vit d PRODIGY LANCETS MISC four times daily. phenazopyridine HCl (AZO ORAL) Take 99.5 mg by mouth once daily as needed (bladder pain). MV with Ypj-Kkmaxzku-Wchqjb (CENTRUM SILVER) 0.4-300-250 mg-mcg-mcg tab Centrum Silver Tablet Centrum Silver Tablet Active 1 TAB DAILY December 23, 2015 3:40pm 12-23-2015 [facility] ([id number]) blood sugar diagnostic (PRODIGY NO CODING) test strip four times daily. No current facility-administered medications for this visit. Objective BP 130/80 (BP Site: Left Arm, BP Position: Sitting) Pulse 85 Temp 37.4 ?C (99.3 ?F) Ht 5' 2 (1.575 m) Wt 164 lb (74.4 kg) LMP (LMP Unknown) SpO2 94% BMI 30.00 kg/m? Physical Exam Assessment AND Plan Jonn Krishnamurthy DO Return in about 6 months (around 08/20/2025). Recording using [employer] software for draft documentation of the visit was discussed with the patient/authorized sales representative gas service; all questions welcomed and answered. Patient/authorized sales representative gas service agreed to proceed Jonn Krishnamurthy DO 02/26/2025 10:16 PM Signed Subjective Margarita Betancourt is an 84-year-old female with a history of atrial fibrillation, dementia, and diabetes, accompanied by her daughter who is providing history on her behalf, presenting for follow-up after a recent hospitalization. Recent Hospitalization: - Recent hospitalization for hematemesis with coffee ground emesis. - Diagnosed with a small tear in the lower intestine and an unspecified infection. - Currently experiencing increased swelling in the ankle, making it difficult to wear shoes. Atrial Fibrillation: - Currently taking Eliquis 5 mg BID. - Family expresses concern about fall risk due to medication. Dementia: - Reports memory issue (more content not included)... Normal [facility] CNPAriane 02-18-2025 [facility] Telephone (FPDOYL) MARGARITA BETANCOURT ([id number]) 1940 F Date Time Provider Department 02/18/25 JONN KRISHNAMURTHY FPDOYL During your visit today, we recorded the following information about you: Judy Grant 02/18/2025 4:01 PM Signed Patient daughter in law requesting Handicap placard for patient when they left appointment today. Pended Jonn Krishnamurthy DO 02/20/2025 9:18 AM Signed Done Allergies As of Date: 02/18/2025 Noted Allergy Reaction MEPERIDINE 07/01/2016 16 - Unknown 11 - Vomiting 14 - Other: See Comments MORPHINE 02/22/2024 14 - Other: See Comments Date Reviewed: 02/18/2025 Reviewed by: Jaz Dawkins LPN - Fully Assessed Reason for Visit: Handicap placard [Other] Primary Visit Diagnosis:Primary osteoarthritis of both hips [M16.0] Order(s):PARKING FOR HANDICAPPED [[id number]] Order #: [id number] Prescriptions as of 02/21/2025 - ondansetron orally disintegrating (ZOFRAN ODT) 4 mg disintegrating tablet Take 1 tablet by mouth every 8 hours as needed for nausea/vomiting. - oxyCODONE-acetaminophe n (PERCOCET) 5-325 mg tablet Take 1 tablet by mouth every 6 hours as needed for pain for up to 20 doses. - insulin lispro (HUMALOG KWIKPEN INSULIN) 100 unit/mL Inject 18 Units subcutaneously three times a day before meals. INJECT 18 UNITS SUBCUTANEOUSLY THREE TIMES DAILY BEFORE MEALS. - omeprazole (PRILOSEC) 40 mg capsule Take 1 capsule by mouth two times a day. - Magnesium 250 mg tab Take 250 mg by mouth once daily. - phenazopyridine HCl (AZO ORAL) Take 99.5 mg by mouth once daily as needed (bladder pain). - lisinopril (ZESTRIL) 20 mg tablet Take 0.5 tablets by mouth once daily. - DICLOFENAC SODIUM TOPICAL Apply 1 application to affected area two times a day. - MULTIVITAMIN ORAL Take 1 tablet by mouth once daily. - ubidecarenone Q-10 (CO Q-10) 10 mg cap Take 10 mg by mouth once daily. - mirtazapine (REMERON) 45 mg tablet Take 1 tablet by mouth daily at bedtime. - metoprolol succinate ER (TOPROL XL) 50 mg 24 hr tablet Take 1 tablet by mouth once daily. - insulin glargine (LANTUS SOLOSTAR U-100 INSULIN) 100 unit/mL (3 mL) Inject 18 Units subcutaneously daily at bedtime. - gabapentin (NEURONTIN) 300 mg capsule Take 1 capsule by mouth two times a day. - ELIQUIS 5 mg tab(s) Take 1 tablet by mouth every afternoon. - phenazopyridine HCl (AZO ORAL) Take by mouth. Gummies OTC - POTASSIUM-99 ORAL Take 1 tablet by mouth every 48 hours. - ipratropium-albuterol (DUONEB) 0.5 mg-3 mg(2.5 mg base)/3 mL nebu USE 1 VIAL IN NEBULIZER 4 TIMES DAILY - MEDICATION, NON-DATABASE Co q 10 b complex Calcium AND vit d - MV with Kso-Hxltrtzo-Pwqiqb (CENTRUM SILVER) 0.4-300-250 mg-mcg-mcg tab Centrum Silver Tablet Centrum Silver Tablet Active 1 TAB DAILY December 23, 2015 3:40pm 12-23-2015 [facility] ([id number]) - PRODIGY LANCETS MISC four times daily. - blood sugar diagnostic (PRODIGY NO CODING) test strip four times daily. Meds Comments as of 12/06/2024: 12/06/24 SOC no severe med interactions med list in complete, med list not in home, in-basket sent to PCP for assistance Problem List As Of Date 02/18/2025 Noted Resolved Insulin-treated type 2 diabetes mellitus (HCC) * Hyperlipidemia, mixed [E78.2] Screening for thyroid disorder [Z13.29] 12/14/2020 Generalized arthritis [M19.90] 12/14/2020 Recurrent UTI (urinary tract infection) [N39.0] 04/29/2021 Late onset Alzheimer's dementia with behavioral*04/29/2021 Essential (primary) hypertension [I10] 02/02/2022 Gastro-esophageal reflux disease without esopha*02/02/2022 Chronic insomnia [F51.04] 01/23/2023 Primary osteoarthritis of both hips [M16.0] 01/23/2023 Primary osteoarthritis of right knee [M17.11] 01/23/2023 Obesity, Class I, BMI 30-34.9 [E66.811] 01/23/2023 Lumbar spondylosis [M47.816] 07/11/2023 Spinal stenosis of lumbar region without neurog*04/21/2024 Recurrent falls [R29.6] 04/21/2024 Spinal stenosis of cervical region [M48.02] 05/29/2024 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] 11/18/2024 Anemia [D64.9] 11/18/2024 Abnormal gait [R26.9] 04/18/2018 History of deep vein thrombosis [Z86.718] 04/18/2018 Degeneration of thoracic intervertebral disc [M*11/18/2024 Depressive disorder [F32.A] 11/18/2024 Disorder of nervous system due to type 2 diabet*11/18/2024 Disorder of vein [I87.9] 11/18/2024 DVT of lower limb, acute (HCC) [I82.409] 07/03/2016 Gastrointestinal hemorrhage [K92.2] 11/18/2024 Generalized anxiety disorder [F41.1] 11/18/2024 Hypoglycemia [E16.2] 02/17/2025 Leukocytosis [D72.829] 11/18/2024 Edema [R60.9] 11/18/2024 Muscle weakness [M62.81] 04/18/2018 Need for assistance with personal care [Z74.1] 04/18/2018 Postoperative state [Z98.890] 11/18/2024 Recurrent major depression [F33.9] 04/18/2018 Senile asthenia [R54] 11/19/2024 Status post hysterectomy [Z90.7 (more content not included)... Normal [facility] HEMOGLOBIN A1C (POC)on 02-18 HbA1c (Bld) [Mass fraction] 8.7 % Abnormal 4.3 - 5.6 % [facility] Comment on above: Location:[facility], [address] [place] [address], [facility] Point of care (POC) Hemoglobin A1c (HGBA1C) testing is intended to assess glucose control and provide a management tool for patients known to have diabetes and their healthcare providers. Target HGBA1C levels may depend on specific clinical circumstances. POC HGBA1C is not intended for use as a diagnostic or screening test; laboratory-based testing should be used for diagnostic purposes. The following information is supplemental and may not be applicable to specific diabetes management situations: The POC device knockout machine operator provides a normal range of 4.2% to 6.5% for the HGBA1C POC test. However, the [place] [employer] guidelines indicate that patients with HGBA1C in the range of 5.7% to 6.4% are at increased risk for development of diabetes and that intervention by lifestyle modification may be beneficial. A HGBA1C level greater than or equal to 6.5% is considered diagnostic of diabetes, pending confirmatory testing. Use of HGBA1C testing to evaluate glucose control may not be appropriate for patients with hemoglobin variants or other conditions (e.g. anemia) that alter red blood cell lifespan. Interpretation and review of laboratory results Abnormal [address] 01-10-2025 102 [facility] ID: [id number] Author: EDIS STERN HDA Service: ? Author Type: ? Type: 102 Filed: 01/10/2025 08:35 Note Text: Code Status: [facility]HCSIND[facility] MARGARITA BETANCOURT ([id number]) 1940 F Date Time Provider Department 12/25/24 RADHA BECKER During your visit today, we recorded the following information about you: Radha Becker RN 12/25/2024 12:32 PM Signed Pt discharged from Home care nursing today. Family express they are able to manage her nursing needs. Pt no longer has a skilled nurse need. Pt will continue with [facility] therapies. Allergies As of Date: 12/25/2024 Noted Allergy Reaction MEPERIDINE 07/01/2016 16 - Unknown 11 - Vomiting Date Reviewed: 12/24/2024 Reviewed by: Alena Oviedo COTA/L - Fully Assessed Reason for Visit: Home Care [[id number]] Cmt: Update, Discharge from Nursing today Prescriptions as of 12/25/2024 - insulin lispro (HUMALOG KWIKPEN INSULIN) 100 unit/mL Inject 18 Units subcutaneously three times a day before meals. INJECT 18 UNITS SUBCUTANEOUSLY THREE TIMES DAILY BEFORE MEALS. - omeprazole (PRILOSEC) 40 mg capsule Take 1 capsule by mouth two times a day. - Magnesium 250 mg tab Take 250 mg by mouth once daily. - phenazopyridine HCl (AZO ORAL) Take 99.5 mg by mouth once daily as needed (bladder pain). - lisinopril (ZESTRIL) 20 mg tablet Take 0.5 tablets by mouth once daily. - lisinopril (ZESTRIL) 10 mg tablet Take 1 tablet by mouth once daily. - DICLOFENAC SODIUM TOPICAL Apply 1 application to affected area two times a day. - MULTIVITAMIN ORAL Take 1 tablet by mouth once daily. - amlodipine bes/olmesartan med (CHARITY ORAL) Take 99.5 mg by mouth once daily. as needed for pain - ubidecarenone Q-10 (CO Q-10) 10 mg cap Take 10 mg by mouth once daily. - mirtazapine (REMERON) 45 mg tablet Take 1 tablet by mouth daily at bedtime. - ondansetron orally disintegrating (ZOFRAN ODT) 4 mg disintegrating tablet Take 1 tablet by mouth every 8 hours as needed for nausea/vomiting. - metoprolol succinate ER (TOPROL XL) 50 mg 24 hr tablet Take 1 tablet by mouth once daily. - nitrofurantoin monohydrate and macrocrystal (MACROBID) 100 mg capsule Take 1 capsule by mouth two times a day. - insulin glargine (LANTUS SOLOSTAR U-100 INSULIN) 100 unit/mL (3 mL) Inject 18 Units subcutaneously daily at bedtime. - gabapentin (NEURONTIN) 300 mg capsule Take 1 capsule by mouth two times a day. - ELIQUIS 5 mg tab(s) Take 1 tablet by mouth every afternoon. - phenazopyridine HCl (AZO ORAL) Take by mouth. Gummies OTC - hydrOXYzine pamoate (VISTARIL) 25 mg capsule Take 1-2 capsules by mouth daily at bedtime. - Magnesium 30 mg tablet Take 30 mg by mouth. daily - POTASSIUM-99 ORAL Take 1 tablet by mouth once daily. Patient should start on December 16, 2024. - docusate sodium (COLACE) 100 mg capsule Take 1 capsule by mouth once daily as needed for constipation. - ipratropium-albuterol (DUONEB) 0.5 mg-3 mg(2.5 mg base)/3 mL nebu USE 1 VIAL IN NEBULIZER 4 TIMES DAILY - MEDICATION, NON-DATABASE Co q 10 b complex Calcium AND vit d - QUEtiapine (SEROQUEL) 25 mg tablet TAKE 1/2 TABLET AT BEDTIME SCHEDULED, AND TAKE 1/2 TABLET DAILY NEEDED - MV with Bjz-Xkfqdiai-Bxdwhu (CENTRUM SILVER) 0.4-300-250 mg-mcg-mcg tab Centrum Silver Tablet Centrum Silver Tablet Active 1 TAB DAILY December 23, 2015 3:40pm 12-23-2015 [facility] ([id number]) - PRODIGY LANCETS MISC four times daily. - blood sugar diagnostic (PRODIGY NO CODING) test strip four times daily. Meds Comments as of 12/06/2024: 12/06/24 SOC no severe med interactions med list in complete, med list not in home, in-basket sent to PCP for assistance Problem List As Of Date 12/25/2024 Noted Resolved Insulin-treated type 2 diabetes mellitus (HCC) * Hyperlipidemia, mixed [E78.2] Screening for thyroid disorder [Z13.29] 12/14/2020 Generalized arthritis [M19.90] 12/14/2020 Recurrent UTI (urinary tract infection) [N39.0] 04/29/2021 Late onset Alzheimer's dementia with behavioral*04/29/2021 Essential (primary) hypertension [I10] 02/02/2022 Gastro-esophageal reflux disease without esopha*02/02/2022 Chronic insomnia [F51.04] 01/23/2023 Primary osteoarthritis of both hips [M16.0] 01/23/2023 Primary osteoarthritis of right knee [M17.11] 01/23/2023 Obesity, Class I, BMI 30-34.9 [E66.811] 01/23/2023 Lumbar spondylosis [M47.816] 07/11/2023 Spinal stenosis of lumbar region without neurog*04/21/2024 Recurrent falls [R29.6] 04/21/2024 Spinal stenosis of cervical region [M48.02] 05/29/2024 Encounter Status:Closed by RADHA BECKER on 12/25/24 [facility] 30on 12-23-2024 30 HNO ID: [id number] Author: CAROLINE LOWE PTA Service: ? Author Type: Shot Core Drill Operator Helper Type: 30 Filed: 12/23/2024 11:42 Note Text: Joint visit completed with Lorraine Garcia PTA student. I was present for 100% of the visit and participated in portions of the visit and documentation for this patient. [facility] 30 HNO ID: [id number] Author: CAROLINE LOWE PTA Service: ? Author Type: Shot Core Drill Operator Helper Type: 30 Filed: 12/23/2024 11:42 Note Text: .join [facility] Melvi 12-23-2024 LEAHN Telephone (GREGYL) MARGARITA BETANCOURT ([id number]) 1940 F Date Time Provider Department 12/23/24 JONN KRISHNAMURTHYYL During your visit today, we recorded the following information about you: Paco Mcelroy 12/23/2024 10:54 AM Signed Spoke to patients daughter in regards to the patients condition and medication. Patient has finished their PT/OT and have been scheduled an in office appointment on January 06 for a BP check. Patient has been taking Tylenol but it is no longer effective and patient is in constant pain when trying to move around. Patient is requesting if possible a refill of their pain medication be sent into the [facility] in [place] to get them through till they see the doctor. I said I'd send the message back. Thanks. Lily Pierce LPN 12/26/2024 10:03 AM Signed Pt is requesting medication for pain Will you give anything without appt? Please advise Jonn Krishnamurthy DO 12/26/2024 10:37 AM Signed No pain med at this time Allergies As of Date: 12/23/2024 Noted Allergy Reaction MEPERIDINE 07/01/2016 16 - Unknown 11 - Vomiting Date Reviewed: 12/23/2024 Reviewed by: Lorraine Garcia PT - Fully Assessed Reason for Visit: Patient Update [1234] Medication Request [138] Cmt: Refill Prescriptions as of 12/26/2024 - insulin lispro (HUMALOG KWIKPEN INSULIN) 100 unit/mL Inject 18 Units subcutaneously three times a day before meals. INJECT 18 UNITS SUBCUTANEOUSLY THREE TIMES DAILY BEFORE MEALS. - omeprazole (PRILOSEC) 40 mg capsule Take 1 capsule by mouth two times a day. - Magnesium 250 mg tab Take 250 mg by mouth once daily. - phenazopyridine HCl (AZO ORAL) Take 99.5 mg by mouth once daily as needed (bladder pain). - lisinopril (ZESTRIL) 20 mg tablet Take 0.5 tablets by mouth once daily. - lisinopril (ZESTRIL) 10 mg tablet Take 1 tablet by mouth once daily. - DICLOFENAC SODIUM TOPICAL Apply 1 application to affected area two times a day. - MULTIVITAMIN ORAL Take 1 tablet by mouth once daily. - amlodipine bes/olmesartan med (CHARITY ORAL) Take 99.5 mg by mouth once daily. as needed for pain - ubidecarenone Q-10 (CO Q-10) 10 mg cap Take 10 mg by mouth once daily. - mirtazapine (REMERON) 45 mg tablet Take 1 tablet by mouth daily at bedtime. - ondansetron orally disintegrating (ZOFRAN ODT) 4 mg disintegrating tablet Take 1 tablet by mouth every 8 hours as needed for nausea/vomiting. - metoprolol succinate ER (TOPROL XL) 50 mg 24 hr tablet Take 1 tablet by mouth once daily. - nitrofurantoin monohydrate and macrocrystal (MACROBID) 100 mg capsule Take 1 capsule by mouth two times a day. - insulin glargine (LANTUS SOLOSTAR U-100 INSULIN) 100 unit/mL (3 mL) Inject 18 Units subcutaneously daily at bedtime. - gabapentin (NEURONTIN) 300 mg capsule Take 1 capsule by mouth two times a day. - ELIQUIS 5 mg tab(s) Take 1 tablet by mouth every afternoon. - phenazopyridine HCl (AZO ORAL) Take by mouth. Gummies OTC - hydrOXYzine pamoate (VISTARIL) 25 mg capsule Take 1-2 capsules by mouth daily at bedtime. - Magnesium 30 mg tablet Take 30 mg by mouth. daily - POTASSIUM-99 ORAL Take 1 tablet by mouth once daily. Patient should start on December 16, 2024. - docusate sodium (COLACE) 100 mg capsule Take 1 capsule by mouth once daily as needed for constipation. - ipratropium-albuterol (DUONEB) 0.5 mg-3 mg(2.5 mg base)/3 mL nebu USE 1 VIAL IN NEBULIZER 4 TIMES DAILY - MEDICATION, NON-DATABASE Co q 10 b complex Calcium AND vit d - QUEtiapine (SEROQUEL) 25 mg tablet TAKE 1/2 TABLET AT BEDTIME SCHEDULED, AND TAKE 1/2 TABLET DAILY NEEDED - MV with Ose-Teypbzdk-Ijwkbq (CENTRUM SILVER) 0.4-300-250 mg-mcg-mcg tab Centrum Silver Tablet Centrum Silver Tablet Active 1 TAB DAILY December 23, 2015 3:40pm 12-23-2015 [facility] ([id number]) - PRODIGY LANCETS MISC four times daily. - blood sugar diagnostic (PRODIGY NO CODING) test strip four times daily. Meds Comments as of 12/06/2024: 12/06/24 SOC no severe med interactions med list in complete, med list not in home, in-basket sent to PCP for assistance Problem List As Of Date 12/23/2024 Noted Resolved Insulin-treated type 2 diabetes mellitus (HCC) * Hyperlipidemia, mixed [E78.2] Screening for thyroid disorder [Z13.29] 12/14/2020 Generalized arthritis [M19.90] 12/14/2020 Recurrent UTI (urinary tract infection) [N39.0] 04/29/2021 Late onset Alzheimer's dementia with behavioral*04/29/2021 Essential (primary) hypertension [I10] 02/02/2022 Gastro-esophageal reflux disease without esopha*02/02/2022 Chronic insomnia [F51.04] 01/23/2023 Primary osteoarthritis of both hips [M16.0] 01/23/2023 Primary osteoarthritis of right knee [M17.11] 01/23/2023 Obesity, Class I, BMI 30-34.9 [E66.811] 01/23/2023 Lumbar spondylosis [M47.816] 07/11/2023 Spinal stenosis of lumbar region without neurog (more content not included)... Normal [facility] CNPNon 12-13-2024 CNPN Telephone (HCSIND) MARGARITA BETANCOURT ([id number]) 1940 F Date Time Provider Department 12/13/24 LILA LONDON HCSIND During your visit today, we recorded the following information about you: Lila London LSW 12/13/2024 1:58 PM Signed 12/13/24 SHASHANK spoke with Estefany the patient's gylpwmom-ox-aqw today and she would like the patient to get a hospital bed, bedside commode and tub transfer bench. Please fax orders to [facility] with the patient's demographics. [facility] Fax number [phone] and the phone number [phone]. Thank You, Jonn Krishnamurthy, 12/13/2024 2:06 PM Signed Done Jonn Krishanmurthy, 12/13/2024 2:06 PM Signed Addended by: JONN KRISHNAMURTHY on: 12/13/2024 02:06 PM Modules accepted: Paco Herrera 12/13/2024 2:27 PM Signed Fax sent over to [phone] and received fax ok transmission at 2:24pm. Paco Mcelroy Allergies As of Date: 12/13/2024 Noted Allergy Reaction MEPERIDINE 07/01/2016 16 - Unknown 11 - Vomiting Date Reviewed: 12/10/2024 Reviewed by: Reta Gaona OT - Fully Assessed Reason for Visit: Home Care [4073] Primary Visit Diagnosis:Primary osteoarthritis of both hips [M16.0] Order(s):HOSPITAL BED [[id number]] Order #: [id number] TUB STOOL OR BENCH [[id number]] Order #: [id number] DME SUPPLY OR ACCESSORY, NOS [[id number]] Order #: [id number] Prescriptions as of 12/13/2024 - lisinopril (ZESTRIL) 10 mg tablet Take 1 tablet by mouth once daily. - DICLOFENAC SODIUM TOPICAL Apply 1 application to affected area two times a day. - MULTIVITAMIN ORAL Take 1 tablet by mouth once daily. - amlodipine bes/olmesartan med (CHARITY ORAL) Take 99.5 mg by mouth once daily. as needed for pain - ubidecarenone Q-10 (CO Q-10) 10 mg cap Take 10 mg by mouth once daily. - mirtazapine (REMERON) 45 mg tablet Take 1 tablet by mouth daily at bedtime. - ondansetron orally disintegrating (ZOFRAN ODT) 4 mg disintegrating tablet Take 1 tablet by mouth every 8 hours as needed for nausea/vomiting. - lisinopril (ZESTRIL) 20 mg tablet Take 1 tablet by mouth once daily. - metoprolol succinate ER (TOPROL XL) 50 mg 24 hr tablet Take 1 tablet by mouth once daily. - nitrofurantoin monohydrate and macrocrystal (MACROBID) 100 mg capsule Take 1 capsule by mouth two times a day. - insulin lispro (HUMALOG KWIKPEN INSULIN) 100 unit/mL INJECT 14 UNITS SUBCUTANEOUSLY THREE TIMES DAILY BEFORE MEALS. - omeprazole (PRILOSEC) 40 mg capsule Take 1 capsule by mouth two times a day. - insulin glargine (LANTUS SOLOSTAR U-100 INSULIN) 100 unit/mL (3 mL) Inject 18 Units subcutaneously daily at bedtime. - gabapentin (NEURONTIN) 300 mg capsule Take 1 capsule by mouth two times a day. - ELIQUIS 5 mg tab(s) Take 1 tablet by mouth every afternoon. - phenazopyridine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 (Bld) [#/Vol] 4.25 10*6/uL Normal 4.2-5.4 [facility] Comment on above: Order Comment: 301-1 Performed By: #### L 100.0500, L500.2500 #### [facility] [address] [place], [address] RDW SD 54.7 fl High 35.1-43.9 [facility] Comment on above: Order Comment: 301-1 Performed By: #### L 100.0500, L500.2500 #### [facility] [address] [place], [address] WBC (Bld) [#/Vol] 6.5 10*3/uL Normal 4.4-11.0 [facility] Comment on above: Order Comment: 301-1 Performed By: #### L 100.0500, L500.2500 #### [facility] [address] [place], [address] Melvi 12-02-2024 LEAHN Telephone ([employer]) MARGARITA BETANCOURT ([id number]) 1940 F Date Time Provider Department 12/02/24 KOSTA CHADWICK HCSIND During your visit today, we recorded the following information about you: Kosta Chadwick LPN 12/02/2024 3:31 PM Signed Jonn Krishnamurthy, DO Please advise if you are agreeable to signing and following for HHC services? Our Clinicians will be sending the Plan of Care to you for review and approval. They will reach out for any appropriate orders required to provide home care services for the patient. We are not able to initiate HHC services without a following provider. Home care clinicians may also obtain [facility] from [facility] Providers Thank you and we would be happy to answer any questions. Kosta Chadwick LPN 12/02/2024 3:31 PM Kosta Chadwick LPN 12/04/2024 8:47 AM Signed PCP agreed to follow for HC services via secure [employer] chat. Allergies As of Date: 12/02/2024 Noted Allergy Reaction MEPERIDINE 07/01/2016 16 - Unknown 11 - Vomiting Date Reviewed: 06/11/2024 Reviewed by: Jaz Dawkins LPN - Fully Assessed Reason for Visit: Home Care [4073] Cmt: to follow Prescriptions as of 12/04/2024 - mirtazapine (REMERON) 45 mg tablet Take 1 tablet by mouth daily at bedtime. - ondansetron orally disintegrating (ZOFRAN ODT) 4 mg disintegrating tablet Take 1 tablet by mouth every 8 hours as needed for nausea/vomiting. - lisinopril (ZESTRIL) 20 mg tablet Take 1 tablet by mouth once daily. - metoprolol succinate ER (TOPROL XL) 50 mg 24 hr tablet Take 1 tablet by mouth once daily. - nitrofurantoin monohydrate and macrocrystal (MACROBID) 100 mg capsule Take 1 capsule by mouth two times a day. - insulin lispro (HUMALOG KWIKPEN INSULIN) 100 unit/mL INJECT 14 UNITS SUBCUTANEOUSLY THREE TIMES DAILY BEFORE MEALS. - omeprazole (PRILOSEC) 40 mg capsule Take 1 capsule by mouth two times a day. - insulin glargine (LANTUS SOLOSTAR U-100 INSULIN) 100 unit/mL (3 mL) Inject 18 Units subcutaneously daily at bedtime. - gabapentin (NEURONTIN) 300 mg capsule Take 1 capsule by mouth two times a day. - ELIQUIS 5 mg tab(s) Take 1 tablet by mouth every afternoon. - phenazopyridine HCl (AZO ORAL) Take by mouth. Gummies OTC - hydrOXYzine pamoate (VISTARIL) 25 mg capsule Take 1-2 capsules by mouth daily at bedtime. - Magnesium 30 mg tablet Take 30 mg by mouth. daily - POTASSIUM-99 ORAL Take by mouth. - docusate sodium (COLACE) 100 mg capsule Take 1 capsule by mouth once daily as needed for constipation. - ipratropium-albuterol (DUONEB) 0.5 mg-3 mg(2.5 mg base)/3 mL nebu USE 1 VIAL IN NEBULIZER 4 TIMES DAILY - MEDICATION, NON-DATABASE Co q 10 b complex Calcium AND vit d - QUEtiapine (SEROQUEL) 25 mg tablet TAKE 1/2 TABLET AT BEDTIME SCHEDULED, AND TAKE 1/2 TABLET DAILY NEEDED - MV with Phe-Oxgckowy-Evlqxq (CENTRUM SILVER) 0.4-300-250 mg-mcg-mcg tab Centrum Silver Tablet Centrum Silver Tablet Active 1 TAB DAILY December 23, 2015 3:40pm 12-23-2015 [facility] ([id number]) - PRODIGY LANCETS MISC four times daily. - blood sugar diagnostic (PRODIGY NO CODING) test strip four times daily. Meds Comments as of 10/08/2021: Problem List As Of Date 12/02/2024 Noted Resolved Insulin-treated type 2 diabetes mellitus (HCC) * Hyperlipidemia, mixed [E78.2] Screening for thyroid disorder [Z13.29] 12/14/2020 Generalized arthritis [M19.90] 12/14/2020 Recurrent UTI (urinary tract infection) [N39.0] 04/29/2021 Late onset Alzheimer's dementia with behavioral*04/29/2021 Essential (primary) hypertension [I10] 02/02/2022 Gastro-esophageal reflux disease without esopha*02/02/2022 Chronic insomnia [F51.04] 01/23/2023 Primary osteoarthritis of both hips [M16.0] 01/23/2023 Primary osteoarthritis of right knee [M17.11] 01/23/2023 Obesity, Class I, BMI 30-34.9 [E66.811] 01/23/2023 Lumbar spondylosis [M47.816] 07/11/2023 Spinal stenosis of lumbar region without neurog*04/21/2024 Recurrent falls [R29.6] 04/21/2024 Spinal stenosis of cervical region [M48.02] 05/29/2024 Encounter Status:Closed by KOSTA CHADWICK on 12/04/24 Normal [facility] CBC-Complete Blood Cnt No Di ffon 11-26-2024 Erythrocyte distribution width (RBC) [Ratio] 19.5 % High 11.6-14.6 [facility] Comment on above: Order Comment: 301.1 Performed By: #### L 100.0500 #### [facility] [address] [place], [address] Hematocrit (Bld) [Volume fraction] 33.6 % Low 37-47 [facility] Comment on above: Order Comment: 301.1 Performed By: #### L 100.0500 #### [facility] [address] [place], [address] Hemoglobin (Bld) [Mass/Vol] 10.5 g/dL Low 12.0-15.0 [facility] Comment on above: Order Comment: 301.1 Performed By: #### L 100.0500 #### [facility] [address] [place], [address] MCH (RBC) [Entitic mass] 24.0 pg Low 27.0-32.0 [facility] Comment on above: Order Comment: 301.1 Performed By: #### L 100.0500 #### [facility] [address] [place], [address] MCHC (RBC) [Mass/Vol] 31.3 g/dL Low 32-36 [facility] Comment on above: Order Comment: 301.1 Performed By: #### L 100.0500 #### [facility] [address] [place], [address] MCV (RBC) [Entitic vol] 76.9 fL Low 81-99 [facility] Comment on above: Order Comment: 301.1 Performed By: #### L 100.0500 #### [facility] [address] [place], [address] Platelet mean volume (Bld) [Entitic vol] 11.2 fL Normal 6.2-12.0 [facility] Comment on above: Order Comment: 301.1 Performed By: #### L 100.0500 #### [facility] [address] [place], [address] Platelets (Bld) [#/Vol] 297 10*3/uL Normal 150-450 [facility] Comment on above: Order Comment: 301.1 Performed By: #### L 100.0500 #### [facility] [address] [place], [address] RBC (Bld) [#/Vol] 4.37 10*6/uL Normal 4.2-5.4 [facility] Comment on above: Order Comment: 301.1 Performed By: #### L 100.0500 #### [facility] [address] [place], [address] RDW SD 54.5 fl High 35.1-43.9 [facility] Comment on above: Order Comment: 301.1 Performed By: #### L 100.0500 #### [facility] [address] [place], [address] WBC (Bld) [#/Vol] 12.0 10*3/uL High 4.4-11.0 [facility] Comment on above: Order Comment: 301.1 Performed By: #### L 100.0500 #### [facility] [address] [place], [address] Basic Metabolic Profile (BMP )on 11-25-2024 BUN/CRE 21.0 RATIO High 10-20 [facility] Comment on above: Order Comment: 301.1 Performed By: #### L 500.2500, L100.0500 #### [facility] [address] [place], [address] Calcium [Mass/Vol] 8.7 mg/dL Normal 7.6-11.0 [facility] Comment on above: Order Comment: 301.1 Performed By: #### L 500.2500, L100.0500 #### [facility] [address] [place], [address] Chloride [Moles/Vol] 101 mmol/L Normal 98-108 [facility] Comment on above: Order Comment: 301.1 Performed By: #### L 500.2500, L100.0500 #### [facility] [address] [place], [address] CO2 [Moles/Vol] 23.8 mmol/L Normal 21.0-32.0 [facility] Comment on above: Order Comment: 301.1 Performed By: #### L 500.2500, L100.0500 #### [facility] [address] [place], [address] Creatinine [Mass/Vol] 1.07 mg/dL Normal 0.70-1.20 [facility] Comment on above: Order Comment: 301.1 Performed By: #### L 500.2500, L100.0500 #### [facility] [address] [place], [address] GAP 10 Normal 5-15 [facility] Comment on above: Order Comment: 301.1 Performed By: #### L 500.2500, L100.0500 #### [facility] [address] [place], [address] GFR/1.73 sq M.predicted among non-blacks MDRD (S/P/Bld) [Vol rate/Area] 51 mL/min/{1.73_m2} Low >60 [facility] Comment on above: Order Comment: 301.1 Result Comment: mL/m in/1.73m2 CKD-EPI Creatinine Equation (2020) Performed By: #### L 500.2500, L100.0500 #### [facility] [address] [place], [address] Glucose [Mass/Vol] 255 mg/dL High 70-99 [facility] Comment on above: Order Comment: 301.1 Performed By: #### L 500.2500, L100.0500 #### [facility] [address] [place], [address] Potassium [Moles/Vol] 4.5 mmol/L Normal 3.3-5.1 [facility] Comment on above: Order Comment: 301.1 Performed By: #### L 500.2500, L100.0500 #### [facility] [address] [place], [address] Sodium [Moles/Vol] 135 mmol/L Normal 133-145 [facility] Comment on above: Order Comment: 301.1 Performed By: #### L 500.2500, L100.0500 #### [facility] [address] [place], [address] Urea nitrogen [Mass/Vol] 23 mg/dL High 4-19 [facility] Comment on above: Order Comment: 301.1 Performed By: #### L 500.2500, L100.0500 #### [facility] [address] [place], [address] CBC-Complete Blood Cnt No Di ffon 11-25-2024 Erythrocyte distribution width (RBC) [Ratio] 19.6 % High 11.6-14.6 [facility] Comment on above: Performed By: #### L 500.2500, L100.0500 #### [facility] [address] [place], [address] Hematocrit (Bld) [Volume fraction] 32.5 % Low 37-47 [facility] Comment on above: Performed By: #### L 500.2500, L100.0500 #### [facility] [address] [place], [address] Hemoglobin (Bld) [Mass/Vol] 10.2 g/dL Low 12.0-15.0 [facility] Comment on above: Performed By: #### L 500.2500, L100.0500 #### [facility] [address] [place], [address] MCH (RBC) [Entitic mass] 24.2 pg Low 27.0-32.0 [facility] Comment on above: Performed By: #### L 500.2500, L100.0500 #### [facility] [address] [place], [address] MCHC (RBC) [Mass/Vol] 31.4 g/dL Low 32-36 [facility] Comment on above: Performed By: #### L 500.2500, L100.0500 #### [facility] [address] [place], [address] MCV (RBC) [Entitic vol] 77.2 fL Low 81-99 [facility] Comment on above: Performed By: #### L 500.2500, L100.0500 #### [facility] [address] [place], [address] Platelet mean volume (Bld) [Entitic vol] 11.5 fL Normal 6.2-12.0 [facility] Comment on above: Performed By: #### L 500.2500, L100.0500 #### [facility] [address] [place], [address] Platelets (Bld) [#/Vol] 281 10*3/uL Normal 150-450 [facility] Comment on above: Performed By: #### L 500.2500, L100.0500 #### [facility] [address] [place], [address] RBC (Bld) [#/Vol] 4.21 10*6/uL Normal 4.2-5.4 [facility] Comment on above: Performed By: #### L 500.2500, L100.0500 #### [facility] [address] [place], [address] RDW SD 54.4 fl High 35.1-43.9 [facility] Comment on above: Performed By: #### L 500.2500, L100.0500 #### [facility] [address] [place], [address] WBC (Bld) [#/Vol] 11.9 10*3/uL High 4.4-11.0 [facility] Comment on above: Performed By: #### L 500.2500, L100.0500 #### [facility] [address] [place], [address] [id number] 11-20-2024 [id number] Patient Choice Patient Name: MARGARITA BETANCOURT Date of : 1940 Share Number: 0 Method of Sharing: electronic Date of Sharin2024-11-14 14:09:18.000 Responding Recipient: [email or web address] Providers Placed Rank: 1 Name: [employer]. Phone: [phone] Address: [address] [place] [address] Ranked Providers Sent Referral Rank: 1 [facility] Phone: [phone] Address: [address] [place] [address] Rank: 4 Name: [facility] Phone: [phone] Address: [address] [place], [place] [id number] Rank: 3 Name: Fadia Leblanc - [employer] Member Phone: [phone] Address: [address] [place] [address] Rank: 2 Name: [facility] Phone: [phone] Address: [address] [place] [address] Rank: 5 Name: [facility] Phone: [phone] Address: [address] [place] [address] [facility] 11-20-2024 CNPN Telephone (FPDOYL) MARGARITA BETANCOURT ([id number]) 1940 F Date Time Provider Department 11/20/24 JONN KRISHNAMURTHY FPDOYL During your visit today, we recorded the following information about you: Jaz Dawkins LPN 11/20/2024 9:24 AM Signed Alanis a nurse with [facility] called in and left a voicemail saying they are taking care of the patient and had a medical question. Said she is currently on Eliquis 5mg once daily. The provider there wants to make sure that is the accurate dose since not the typical dosage. Just confirming. Please advise. Jonn Krishnamurthy DO 11/22/2024 1:18 PM Signed Why is she on eliquis? What dx? Jaz Dawkins LPN 11/25/2024 9:16 AM Signed Called and spoke with Alanis and asked what diagnosis they have and she said history of blood clots and coag defect unspecified. Allergies As of Date: 11/20/2024 Noted Allergy Reaction MEPERIDINE 07/01/2016 16 - Unknown 11 - Vomiting Date Reviewed: 06/11/2024 Reviewed by: Jaz Dawkins LPN - Fully Assessed Reason for Visit: Patient Question [[id number]] Cmt: Eliquis Prescriptions as of 11/25/2024 - mirtazapine (REMERON) 45 mg tablet Take 1 tablet by mouth daily at bedtime. - ondansetron orally disintegrating (ZOFRAN ODT) 4 mg disintegrating tablet Take 1 tablet by mouth every 8 hours as needed for nausea/vomiting. - lisinopril (ZESTRIL) 20 mg tablet Take 1 tablet by mouth once daily. - metoprolol succinate ER (TOPROL XL) 50 mg 24 hr tablet Take 1 tablet by mouth once daily. - nitrofurantoin monohydrate and macrocrystal (MACROBID) 100 mg capsule Take 1 capsule by mouth two times a day. - insulin lispro (HUMALOG KWIKPEN INSULIN) 100 unit/mL INJECT 14 UNITS SUBCUTANEOUSLY THREE TIMES DAILY BEFORE MEALS. - omeprazole (PRILOSEC) 40 mg capsule Take 1 capsule by mouth two times a day. - insulin glargine (LANTUS SOLOSTAR U-100 INSULIN) 100 unit/mL (3 mL) Inject 18 Units subcutaneously daily at bedtime. - gabapentin (NEURONTIN) 300 mg capsule Take 1 capsule by mouth two times a day. - ELIQUIS 5 mg tab(s) Take 1 tablet by mouth every afternoon. - phenazopyridine HCl (AZO ORAL) Take by mouth. Gummies OTC - hydrOXYzine pamoate (VISTARIL) 25 mg capsule Take 1-2 capsules by mouth daily at bedtime. - Magnesium 30 mg tablet Take 30 mg by mouth. daily - POTASSIUM-99 ORAL Take by mouth. - docusate sodium (COLACE) 100 mg capsule Take 1 capsule by mouth once daily as needed for constipation. - ipratropium-albuterol (DUONEB) 0.5 mg-3 mg(2.5 mg base)/3 mL nebu USE 1 VIAL IN NEBULIZER 4 TIMES DAILY - MEDICATION, NON-DATABASE Co q 10 b complex Calcium AND vit d - QUEtiapine (SEROQUEL) 25 mg tablet TAKE 1/2 TABLET AT BEDTIME SCHEDULED, AND TAKE 1/2 TABLET DAILY NEEDED - MV with Mkq-Ltsiulvw-Ldmjco (CENTRUM SILVER) 0.4-300-250 mg-mcg-mcg tab Centrum Silver Tablet Centrum Silver Tablet Active 1 TAB DAILY December 23, 2015 3:40pm 12-23-2015 [facility] ([id number]) - PRODIGY LANCETS MISC four times daily. - blood sugar diagnostic (PRODIGY NO CODING) test strip four times daily. Meds Comments as of 10/08/2021: Problem List As Of Date 11/20/2024 Noted Resolved Insulin-treated type 2 diabetes mellitus (HCC) * Hyperlipidemia, mixed [E78.2] Screening for thyroid disorder [Z13.29] 12/14/2020 Generalized arthritis [M19.90] 12/14/2020 Recurrent UTI (urinary tract infection) [N39.0] 04/29/2021 Late onset Alzheimer's dementia with behavioral*04/29/2021 Essential (primary) hypertension [I10] 02/02/2022 Gastro-esophageal reflux disease without esopha*02/02/2022 Chronic insomnia [F51.04] 01/23/2023 Primary osteoarthritis of both hips [M16.0] 01/23/2023 Primary osteoarthritis of right knee [M17.11] 01/23/2023 Obesity, Class I, BMI 30-34.9 [E66.811] 01/23/2023 Lumbar spondylosis [M47.816] 07/11/2023 Spinal stenosis of lumbar region without neurog*04/21/2024 Recurrent falls [R29.6] 04/21/2024 Spinal stenosis of cervical region [M48.02] 05/29/2024 Encounter Status:Closed by JONN KRISHNAMURTHY on 11/22/24 [facility] 30on 11-19-2024 30 Problem: Knowledge Deficit Goal: Patient/family/caregiv er demonstrates understanding of disease process, treatment plan, medications, and discharge instructions Outcome: Progressing Problem: Potential for Compromised Skin Integrity Goal: Skin Integrity is Maintained or Improved Outcome: Progressing Goal: Nutritional status is improving Outcome: Progressing Problem: Urinary Incontinence Goal: Perineal skin integrity is maintained or improved Outcome: Progressing Problem: Potential for Falls Goal: I will remain free of falls Outcome: Progressing Problem: Discharge Barriers Goal: My discharge needs are met Outcome: Progressing Normal [facility] 30 Problem: Knowledge Deficit Goal: Patient/family/caregiv er demonstrates understanding of disease process, treatment plan, medications, and discharge instructions Outcome: Progressing Problem: Potential for Compromised Skin Integrity Goal: Skin Integrity is Maintained or Improved Outcome: Progressing Goal: Nutritional status is improving Outcome: Progressing Problem: Urinary Incontinence Goal: Perineal skin integrity is maintained or improved Outcome: Progressing Problem: Potential for Falls Goal: I will remain free of falls Outcome: Progressing Problem: Discharge Barriers Goal: My discharge needs are met Outcome: Progressing Normal [facility] [id number] 11-19-2024 [id number] Next Site of Care Admission Date: 11/11/2024 08:32 PM Patient Name: MARGARITA BETANCOURT Location: [facility] CARDIAC PCU/[facility] [id number] Date of : 1940 ---- Placement Information ---- Referral Type:Usp/SNF - New Referral ID:[id number] [facility] Address 1:[address] Address 2: City:[place] Selection Factors:Patient/Family Choice State:[place] Normal [facility] [phone] [facility] request. [facility] CBC W Auto Differential pane l (Bld)on 11-19-2024 Basophils (Bld) [#/Vol] 0 10*3/uL 0.0 - 0.2 10*3/uL [facility] Basophils/100 WBC (Bld) 0.4 % 0.0 - 2.0 % [facility] Eosinophils (Bld) [#/Vol] 0.4 10*3/uL 0.0 - 0.5 10*3/uL [facility] Eosinophils/100 WBC (Bld) 4.8 % 0.0 - 6.0 % [facility] Erythrocyte distribution width (RBC) [Ratio] 19.5 % High 11.5 - 15.0 % [facility] Hematocrit (Bld) [Volume fraction] 33.4 % Low 35.0 - 47.0 % [facility] Hemoglobin (Bld) [Mass/Vol] 10.3 g/dL Low 11.7 - 16.0 g/dL [facility] Immature granulocytes (Bld) [#/Vol] 0.1 10*3/uL High NINF - 0.1 10*3/uL [facility] Immature granulocytes/100 WBC (Bld) 1.2 % 0.0 - 2.0 % [facility] Interpretation and review of laboratory results Abnormal [facility] Lymphocytes (Bld) [#/Vol] 1.9 10*3/uL 1.0 - 4.3 10*3/uL [facility] Lymphocytes/100 WBC (Bld) 24 % 15.0 - 45.0 % [facility] MCH (RBC) [Entitic mass] 24 pg Low 26.0 - 34.0 pg [facility] MCHC (RBC) [Mass/Vol] 30.8 % 30.5 - 36.0 % [facility] MCV (RBC) [Entitic vol] 77.7 fL 77.0 - 99.0 fL [facility] Monocytes (Bld) [#/Vol] 0.7 10*3/uL 0.0 - 0.9 10*3/uL [facility] Monocytes/100 WBC (Bld) 8.2 % 5.0 - 13.0 % [facility] Neutrophils (Bld) [#/Vol] 5 10*3/uL 1.8 - 7.5 10*3/uL [facility] Neutrophils/100 WBC (Bld) 61.4 % 38.0 - 82.0 % [facility] Nucleated RBC/100 WBC (Bld) [Ratio] 0 % [facility] Platelet mean volume (Bld) [Entitic vol] 10.8 fL 9.0 - 12.7 fL [facility] Platelets (Bld) [#/Vol] 222 10*3/uL 140 - 440 10*3/uL [facility] RBC (Bld) [#/Vol] 4.3 10*6/uL 3.80 - 5.2 0 10*6/uL [facility] WBC (Bld) [#/Vol] 8.1 10*3/uL 3.6 - 10.7 10*3/uL [facility] CBC WITH AUTO DIFFERENTIALon 11-19-2024 Basophils (Bld) [#/Vol] 0.0 10*3/uL Normal 0.0-0.2 [facility] Comment on above: Performed By: #### L [id number] ####Floor Assembler: KELLEY DURAND ([id number])[facility] ([facility])[address] [place] [address] Basophils/100 WBC (Bld) 0.4 % Normal 0.0-2.0 [facility] Comment on above: Performed By: #### L [id number] ####Floor Assembler: KELLEY DURAND ([id number])[facility] ([facility])[address] Eosinophils (Bld) [#/Vol] 0.4 10*3/uL Normal 0.0-0.5 [facility] Comment on above: Performed By: #### L [id number] ####Floor Assembler: KELLEY DURAND ([id number])[facility] [place] ([facility])[address] Eosinophils/100 WBC (Bld) 4.8 % Normal 0.0-6.0 [facility] Comment on above: Performed By: #### L [id number] ####Floor Assembler: KELLEY ARRINGTONTERRELL ([id number])[facility] ([facility])[address] Erythrocyte distribution width (RBC) [Ratio] 19.5 % High 11.5-15.0 [facility] Comment on above: Performed By: #### L [id number] ####Floor Assembler: KELLEY DURAND ([id number])[facility] Hematocrit (Bld) [Volume fraction] 33.4 % Low 35.0-47.0 [facility] Comment on above: Performed By: #### L [id number] ####Floor Assembler: KELLEY DURAND ([id number])[facility] ([facility])[address] Hemoglobin (Bld) [Mass/Vol] 10.3 g/dL Low 11.7-16.0 [facility] Comment on above: Performed By: #### L [id number] ####Floor Assembler: KELLEY DURAND ([id number])[facility] ([facility])[address] IMMATURE GRANS % 1.2 % Normal 0.0-2.0 [facility] Comment on above: Performed By: #### L [id number] ####Floor Assembler: KELLEY DURAND ([id number])[facility] ([facility])[address] IMMATURE GRANS ABSOLUTE 0.1 10*3/uL High <0.1 [facility] Comment on above: Performed By: #### L [id number] ####Floor Assembler: KELLEY DURAND ([id number])[facility] ([facility])[address] Lymphocytes (Bld) [#/Vol] 1.9 10*3/uL Normal 1.0-4.3 [facility] Comment on above: Performed By: #### L [id number] ####Floor Assembler: KELLEY ARRINGTONTERRELL ([id number])[facility] [place] ([facility])[address] Lymphocytes/100 WBC (Bld) 24.0 % Normal 15.0-45.0 [facility] Comment on above: Performed By: #### L [id number] ####Floor Assembler: KELLEY DURAND ([id number])[facility] [place] ([facility])[address] MCH (RBC) [Entitic mass] 24.0 pg Low 26.0-34.0 [facility] Comment on above: Performed By: #### L [id number] ####Floor Assembler: KELLEY DURAND ([id number])[facility] [place] ([facility])[address] MCHC 30.8 % Normal 30.5-36.0 [facility] Comment on above: Performed By: #### L [id number] ####Floor Assembler: KELLEY DURAND ([id number])[facility] [place] ([facility])[address] [place] [address] MCV (RBC) [Entitic vol] 77.7 fL Normal 77.0-99.0 [facility] Comment on above: Performed By: #### L [id number] ####Floor Assembler: KELLEY DURAND ([id number])[facility] [place] ([facility])[address] Monocytes (Bld) [#/Vol] 0.7 10*3/uL Normal 0.0-0.9 [facility] Comment on above: Performed By: #### L [id number] ####Floor Assembler: KELLEY DURAND ([id number])[facility] [place] ([facility])[address] Monocytes/100 WBC (Bld) 8.2 % Normal 5.0-13.0 [facility] Comment on above: Performed By: #### L [id number] ####Floor Assembler: KELLEY DURAND ([id number])[facility] [place] ([facility])[address] NEUTROPHILS ABSOLUTE 5.0 10*3/uL Normal 1.8-7.5 [facility] Comment on above: Performed By: #### L [id number] ####Floor Assembler: KELLEY DURAND ([id number])[facility] [place] ([facility])[address] Neutrophils/100 WBC (Bld) 61.4 % Normal 38.0-82.0 [facility] Comment on above: Performed By: #### L [id number] ####Floor Assembler: KELLEY DURAND ([id number])[facility] [place] ([facility])[address] NRBC 0.0 /100 WBCs Normal 0.0-2.0 [facility] Comment on above: Performed By: #### L [id number] ####Floor Assembler: KELLEY DURAND ([id number])[facility] [place] ([facility])[address] Platelet mean volume (Bld) [Entitic vol] 10.8 fL Normal 9.0-12.7 [facility] Comment on above: Performed By: #### L [id number] ####Floor Assembler: KELLEY DURAND ([id number])[facility] [place] ([facility])[address] Platelets (Bld) [#/Vol] 222 10*3/uL Normal 140-440 [facility] Comment on above: Performed By: #### L [id number] ####Floor Assembler: KELLEY DURAND ([id number])[facility] [place] ([facility])[address] [place] [address] [place] RBC (Bld) [#/Vol] 4.30 10*6/uL Normal 3.80-5.20 [facility] Comment on above: Performed By: #### L [id number] ####Floor Assembler: KELLEY DURAND ([id number])[facility] [place] ([facility])[address] WBC (Bld) [#/Vol] 8.1 10*3/uL Normal 3.6-10.7 [facility] Comment on above: Performed By: #### L [id number] ####Floor Assembler: KELLEY DURAND ([id number])[facility] ([facility])[address] COMPREHENSIVE METABOLIC PANE [place] 11-19-2024 Albumin [Mass/Vol] 2.0 g/dL Low 3.4-4.8 [facility] Comment on above: Performed By: #### L [id number] #### Floor Assembler: KELLEY DURAND ([id number]) [facility] [place] ([facility]) [address] ALP [Catalytic activity/Vol] 70 U/L Normal 40-150 [facility] Comment on above: Performed By: #### L [id number] #### Floor Assembler: KELLEY DURAND ([id number]) [facility] ([facility] [address] ALT [Catalytic activity/Vol] 36 U/L High <30 [facility] Comment on above: Performed By: #### L [id number] #### Floor Assembler: KELLEY DURAND ([id number]) [facility] ([facility]) [address] Anion gap [Moles/Vol] 7 mmol/L Normal 3-13 [facility] Comment on above: Performed By: #### L [id number] #### Floor Assembler: KELLEY DURAND ([id number]) [facility] ([facility]) [address] [place] [address] [place] AST [Catalytic activity/Vol] 46 U/L High <34 [facility] Comment on above: Performed By: #### L [id number] #### Floor Assembler: KELLEY DURAND ([id number]) [facility] [place] ([facility]) [address] Bilirubin [Mass/Vol] 0.3 mg/dL Normal <1.2 [facility] Comment on above: Performed By: #### L [id number] #### Floor Assembler: KELLEY DURAND ([id number]) [facility] ([facility]) [address] Calcium [Mass/Vol] 8.4 mg/dL Low 8.8-10.0 [facility] Comment on above: Performed By: #### L [id number] #### Floor Assembler: KELLEY DURAND ([id number]) [facility] ([facility]) [address] Chloride [Moles/Vol] 105 mmol/L Normal 98-107 [facility] Comment on above: Performed By: #### L [id number] #### Floor Assembler: KELLEY DURAND ([id number]) [facility] ([facility]) [address] CO2 [Moles/Vol] 27 mmol/L Normal 23-31 [facility] Comment on above: Performed By: #### L [id number] #### Floor Assembler: KELLEY DURAND ([id number]) [facility] ([facility]) [address] [place] [address] [place] Creatinine [Mass/Vol] 0.97 mg/dL Normal 0.57-1.11 [facility] Comment on above: Performed By: #### L [id number] #### Floor Assembler: KELLEY DURAND ([id number]) [facility] ([facility] [address] GLOMERULAR FILTRATION RATE ML/MIN/1.73 SQ M.PREDICTED 57.7 mL/min/1.73m*2 Low >60.0 [facility] Comment on above: Result Comment: Calc ulation based on the Chronic Kidney Disease Epidemiology Collaboration (CKD-EPI) equation refit without adjustment for race Performed By: #### L [id number] #### Floor Assembler: KELLEY DURAND ([id number]) [facility] ([facility]) [address] Glucose [Mass/Vol] 78 mg/dL Low 82-115 [facility] Comment on above: Performed By: #### L [id number] #### Floor Assembler: KELLEY DURAND ([id number]) [facility] ([facility]) [address] [place], [place] [id number] [place] [address] Potassium [Moles/Vol] 4.3 mmol/L Normal 3.5-5.1 [facility] Comment on above: Result Comment: [facility] potassium values may be up to 0.5 mmol/L lower than serum values. Performed By: #### L [id number] #### Floor Assembler: KELLEY DURAND ([id number]) [facility] ([facility]) [address] [place], [place] [id number] [place] [address] Protein [Mass/Vol] 5.4 g/dL Low 6.4-8.3 [facility] Comment on above: Performed By: #### L [id number] #### Floor Assembler: KELLEY DURAND ([id number]) [facility] ([facility]) [address] [place], [place] [id number] [place] [address] Sodium [Moles/Vol] 139 mmol/L Normal 136-145 [facility] Comment on above: Performed By: #### L [id number] #### Floor Assembler: KELLEY DURAND ([id number]) [facility] ([facility]) [address] [place] [address] [place] Urea nitrogen [Mass/Vol] 27 mg/dL High 9-23 [facility] Comment on above: Performed By: #### L [id number] #### Floor Assembler: KELLEY DURAND ([id number]) [facility] ([facility]) [address] [place], [place] [id number] [place] [address] Comprehensive metabolic 1998 panelon 03-18-2025 Albumin [Mass/Vol] 2 g/dL Low 3.4 - 4.8 g/dL [facility] ALP [Catalytic activity/Vol] 70 U/L 40 - 150 U/L [facility] ALT [Catalytic activity/Vol] 36 U/L [facility] U/L [facility] Anion gap [Moles/Vol] 7 mmol/L 3 - 13 mmol/L [facility] AST [Catalytic activity/Vol] 46 U/L High NINF - 34 U/L [facility] Bilirubin [Mass/Vol] 0.3 mg/dL NINF - 1.2 mg/dL [facility] Calcium [Mass/Vol] 8.4 mg/dL Low 8.8 - 10. 0 mg/dL [facility] Chloride [Moles/Vol] 105 mmol/L 98 - 10 7 mmol/L [facility] CO2 [Moles/Vol] 27 mmol/L 23 - 31 mmol/L [facility] Creatinine [Mass/Vol] 0.97 mg/dL 0.57 - 1.11 mg/dL [facility] GFR/1.73 sq M.predicted (S/P/Bld) [Vol rate/Area] 57.7 mL/min Low - PINF [facility] Comment on above: Calculation based on the Chronic Kidney Disease Epidemiology Collaboration (CKD-EPI) equation refit without adjustment for race Glucose [Mass/Vol] 78 mg/dL Low 82 - 115 mg/dL [facility] Interpretation and review of laboratory results Abnormal [facility] Potassium [Moles/Vol] 4.3 mmol/L 3.5 - 5.1 mmol/L [facility] Comment on above: Plasma potassium marialuisa ues may be up to 0.5 mmol/L lower than serum values. Protein [Mass/Vol] 5.4 g/dL Low 6.4 - 8.3 g/dL [facility] Sodium [Moles/Vol] 139 mmol/L 136 - 145 mmol/L [facility] Urea nitrogen [Mass/Vol] 27 mg/dL High 9 - 23 mg/dL [facility] Consulton 11-19-2024 Consult [facility] Wound Care CONSULT Note Margarita Betancourt AGE: 84 y.o. GENDER: female : 1940 Subjective: HISTORY of PRESENT ILLNESS HPI Margarita Betancourt is a 84 y.o. female who presents for a wound consult. HPI: Margarita is a 84 y.o. female with history that includes dementia, diabetes, HTN, asthma, DVT (not on blood thinners), presenting to ED for vomiting, coffee ground emesis, melena, and confusion. Wound Care consulted for Trey score prevention blow off worker reached out to this service for open wounds found during skin assessment. 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 Hypertension PAST SURGICAL HISTORY Past Surgical History: Procedure Laterality Date BLADDER SUSPENSION 1984 unknown exact year BLD CARPEL TUNNEL RELEASE (HISTORICAL) Bilateral 1984 unknown exact year HIP FRACTURE SURGERY Right 02/17/2019 HYSTERECTOMY JOINT REPLACEMENT FAMILY HISTORY Family History Problem Relation Name Age of Onset Asthma Mother Heart attack Brother 55.00 Heart disease Brother SOCIAL HISTORY Social History Tobacco Use Smoking status: Never Smokeless tobacco: Never Substance Use Topics Alcohol use: No Drug use: No ALLERGIES Allergies Allergen Reactions Meperidine Unknown and Nausea And Vomiting MEDICATIONS No current facility-administered medications on file prior to encounter. Current Outpatient Medications on File Prior to Encounter Medication Sig Dispense Refill apixaban (Eliquis) 5 MG tablet Take 5 mg by mouth daily. docusate sodium (Colace) 100 MG capsule Take 100 mg by mouth daily. glucose blood test strip 1 strip by Other route 4 times daily. Use as instructed insulin glargine (Lantus) 100 UNIT/ML injection Inject 18 Units under the skin Nightly. Patient uses sliding scale for long acting insulin as well insulin lispro (HumaLOG) 100 UNIT/ML pen injection Inject 14 Units under the skin 3 times daily (with meals). Patient uses sliding scale at home ipratropium-albuterol (Duo-Neb) 0.5-2.5 mg/3 mL nebulizer solution Take 3 mL by nebulization 2 times daily as needed for shortness of breath. lisinopril 20 MG tablet Take 20 mg by mouth daily. magnesium 30 MG tablet Take 30 mg by mouth daily. metoprolol succinate XL (Toprol-XL) 50 MG 24 hr tablet Take 50 mg by mouth daily. Do not crush or chew. mirtazapine (Remeron) 45 MG tablet Take 45 mg by mouth Nightly. Multiple Vitamins-Minerals (CENTRUM SILVER ADULT 50+ PO) Take 1 Dose by mouth daily. nitrofurantoin, macrocrystal-monohydra te, (Macrobid) 100 MG capsule Take 1 capsule by mouth 2 times daily. NON FORMULARY Take 1 Dose by mouth as needed. omeprazole (PriLOSEC) [address] capsule Take 40 mg by mouth 2 times daily (before meals). Do not crush or chew. ondansetron ODT (Zofran-ODT) 4 MG disintegrating tablet Take 4 mg by mouth every 8 hours as needed for nausea or vomiting. oxyCODONE-acetaminophe n (Percocet) 5-325 MG tablet Take 1 tablet by mouth every 4 hours as needed for severe pain (7-10) (pain). POTASSIUM CHLORIDE PO Take 99 each by mouth daily. Over the counter medication [DISCONTINUED] gabapentin (Neurontin) 300 MG capsule Take 300 mg by mouth 2 times daily. [DISCONTINUED] PHENAZOPYRIDINE HCL PO Take 25 mg by mouth daily. Prodigy Lancets 28G misc 1 Lancet. 4 times daily. [DISCONTINUED] B Complex Vitamins (B COMPLEX PO) Take 1 Dose by mouth daily. (Patient not taking: Reported on 11/12/2024) [DISCONTINUED] CALCIUM-CHOLECALCIFERO L PO Take 1 Dose by mouth daily. (Patient not taking: Reported on 11/12/2024) [DISCONTINUED] Coenzyme Q10 (CO Q 10 PO) Take 1 Dose by mouth daily. (Patient not taking: Reported on 11/12/2024) [DISCONTINUED] hydrOXYzine pamoate (Vistaril) 25 MG capsule Take 25 mg by mouth Nightly. (Patient not taking: Reported on 11/12/2024) [DISCONTINUED] QUEtiapine (SEROquel) 25 MG tablet Take 25 mg by mouth Nightly. 1/2 tab qhs (Patient not taking: Reported on 11/12/2024) [DISCONTINUED] QUEtiapine (SEROquel) 25 MG tablet Take 25 mg by mouth Nightly as needed (insomnia). 1/2 tab (Patient not taking: Reported on 11/12/2024) REVIEW OF SYSTEMS Pertinent items are noted in HPI. Objective: BP 119/71 Pulse 79 Temp 36.4 ?C (97.5 ?F) (Temporal) Resp 16 Ht 5' 1 (1.549 m) Wt 163 lb (73.9 kg) SpO2 95% BMI 30.80 kg/m? PHYSICAL EXAM General appearance: in no apparent distress, well developed and well nourished, in no respiratory distress and acyanotic, and alert Skin: warm and dry Pulmonary: Normal effort, no respiratory distress, no cyanosis Left abdominal fold: No open areas or drainage noted. Area with nonblanchable erythema and excoriation. Duyen wound intact and fragile. 11/19/24 Right medial thigh: 2 intact fluid filled blisters noted with no open areas or drainage not (more content not included)... Normal [facility] - Chemistry and C hemistry - challengeon 11-19-2024 Glucose [Mass/Vol] 184 mg/dL High 70 - 100 mg/dL [facility] Glucose [Mass/Vol] 305 mg/dL High 70 - 100 mg/dL [facility] [employer] No Panel Informationon 11-19 Interpretation and review of laboratory results Abnormal [facility] [employer] Performed by: [facility], [address] [place] [address] CLIA ID: [id number] [facility] [employer] [facility] Interpretation and review of laboratory results Abnormal [facility] Performed by: [facility], [address] [place] [address] CLIA ID: [id number] [facility] [employer] [facility] 30on 11-18-2024 30 Problem: Knowledge Deficit Goal: Patient/family/caregiv er demonstrates understanding of disease process, treatment plan, medications, and discharge instructions Outcome: Progressing Problem: Potential for Compromised Skin Integrity Goal: Skin Integrity is Maintained or Improved Outcome: Progressing Goal: Nutritional status is improving Outcome: Progressing Problem: Urinary Incontinence Goal: Perineal skin integrity is maintained or improved Outcome: Progressing Problem: Potential for Falls Goal: I will remain free of falls Outcome: Progressing Problem: Discharge Barriers Goal: My discharge needs are met Outcome: Progressing Normal [facility] [id number] 11-18-2024 [id number] Discharge med list transmitted to [facility] via [employer] per TCC request. [id number] was entered into [facility] for the SNF- previously completed. Facility is aware Normal [facility] [id number] was entered int o [facility] PER TCC REQUEST/ FACILITY IS AWARE Normal [facility] CBC W Auto Differential pane l (Bld)on 11-18-2024 Basophils (Bld) [#/Vol] 0 10*3/uL 0.0 - 0.2 10*3/uL [facility] Basophils/100 WBC (Bld) 0.3 % 0.0 - 2.0 % [facility] Eosinophils (Bld) [#/Vol] 0.4 10*3/uL 0.0 - 0.5 10*3/uL [facility] Eosinophils/100 WBC (Bld) 3.7 % 0.0 - 6.0 % [facility] Erythrocyte distribution width (RBC) [Ratio] 19.9 % High 11.5 - 15.0 % [facility] Hematocrit (Bld) [Volume fraction] 33.3 % Low 35.0 - 47.0 % [facility] Hemoglobin (Bld) [Mass/Vol] 10.1 g/dL Low 11.7 - 16.0 g/dL [facility] Immature granulocytes (Bld) [#/Vol] 0.1 10*3/uL High NINF - 0.1 10*3/uL [facility] Immature granulocytes/100 WBC (Bld) 0.7 % 0.0 - 2.0 % [facility] Interpretation and review of laboratory results Abnormal [facility] Lymphocytes (Bld) [#/Vol] 2.8 10*3/uL 1.0 - 4.3 10*3/uL [facility] Lymphocytes/100 WBC (Bld) 23.9 % 15.0 - 45.0 % [facility] MCH (RBC) [Entitic mass] 23.6 pg Low 26.0 - 34.0 pg [facility] MCHC (RBC) [Mass/Vol] 30.3 % Low 30.5 - 36.0 % [facility] MCV (RBC) [Entitic vol] 77.8 fL 77.0 - 99.0 fL [facility] Monocytes (Bld) [#/Vol] 0.9 10*3/uL 0.0 - 0.9 10*3/uL [facility] Monocytes/100 WBC (Bld) 7.5 % 5.0 - 13.0 % [facility] Neutrophils (Bld) [#/Vol] 7.5 10*3/uL 1.8 - 7.5 10*3/uL [facility] Neutrophils/100 WBC (Bld) 63.9 % 38.0 - 82.0 % [facility] Nucleated RBC/100 WBC (Bld) [Ratio] 0 % [facility] Platelet mean volume (Bld) [Entitic vol] 11.4 fL 9.0 - 12.7 fL [facility] Platelets (Bld) [#/Vol] 236 10*3/uL 140 - 440 10*3/uL [facility] RBC (Bld) [#/Vol] 4.28 10*6/uL 3.80 - 5.2 0 10*6/uL [facility] WBC (Bld) [#/Vol] 11.8 10*3/uL High 3.6 - 10.7 10*3/uL [facility] CBC WITH AUTO DIFFERENTIALon 11-18-2024 Basophils (Bld) [#/Vol] 0.0 10*3/uL Normal 0.0-0.2 [facility] Comment on above: Performed By: #### L [id number] ####Floor Assembler: KELLEY DURAND ([id number])[facility] ([facility])[address] [place] [address] Basophils/100 WBC (Bld) 0.3 % Normal 0.0-2.0 [facility] Comment on above: Performed By: #### L [id number] ####Floor Assembler: KELLEY DURAND ([phone])[facility])[address] [place] [address] [place] Eosinophils (Bld) [#/Vol] 0.4 10*3/uL Normal 0.0-0.5 [facility] Comment on above: Performed By: #### L [id number] ####Floor Assembler: KELLEY DURAND ([id number])[facility])[address] [place] [address] [place] Eosinophils/100 WBC (Bld) 3.7 % Normal 0.0-6.0 [facility] Comment on above: Performed By: #### L [id number] ####Floor Assembler: KELLEY DURAND ([id number])[facility])[address] [place] [address] Erythrocyte distribution width (RBC) [Ratio] 19.9 % High 11.5-15.0 [facility] Comment on above: Performed By: #### L [id number] ####Floor Assembler: KELLEY DURAND ([id number])[facility])[address] [place] [address] Hematocrit (Bld) [Volume fraction] 33.3 % Low 35.0-47.0 [facility] Comment on above: Performed By: #### L [id number] ####Floor Assembler: KELLEY ARRINGTONTERRELL ([id number])[facility] ([facility])[address] [place] [address] Hemoglobin (Bld) [Mass/Vol] 10.1 g/dL Low 11.7-16.0 [facility] Comment on above: Performed By: #### L [id number] ####Floor Assembler: KELLEY DURAND ([id number])[facility])[address] [place] [address] IMMATURE GRANS % 0.7 % Normal 0.0-2.0 [facility] Comment on above: Performed By: #### L [id number] ####Floor Assembler: KELLEY DURAND ([id number])[facility])[address] [place] [address] IMMATURE GRANS ABSOLUTE 0.1 10*3/uL High <0.1 [facility] Comment on above: Performed By: #### L [id number] ####Floor Assembler: KELLEY DURAND ([id number])[facility] [place] [address] Lymphocytes (Bld) [#/Vol] 2.8 10*3/uL Normal 1.0-4.3 [facility] Comment on above: Performed By: #### L [id number] ####Floor Assembler: KELLEY DURAND ([id number])[facility]ITALDiane HARTMANNROB (SBHLAB)[address] Lymphocytes/100 WBC (Bld) 23.9 % Normal 15.0-45.0 [facility] Comment on above: Performed By: #### L [id number] ####Floor Assembler: KELLEY DURAND ([id number])[facility]ITALDiane BAIRDN (SBHLAB)[address] MCH (RBC) [Entitic mass] 23.6 pg Low 26.0-34.0 [facility] Comment on above: Performed By: #### L [id number] ####Floor Assembler: KELLEY DURAND ([id number])[facility]ITALDiane HARTMANNREHABILITATION HOSPITAL OF SOUTHERN NEW MEXICOIsrrael (SBHLAB)[address] MCHC 30.3 % Low 30.5-36.0 [facility] Comment on above: Performed By: #### L [id number] ####Floor Assembler: KELLEY DURAND ([id number])[facility]ITALDiane HARTMANNREHABILITATION HOSPITAL OF SOUTHERN NEW MEXICOIsrrael (SBHLAB)[address] MCV (RBC) [Entitic vol] 77.8 fL Normal 77.0-99.0 [facility] Comment on above: Performed By: #### L [id number] ####Floor Assembler: KELLEY DURAND ([id number])[facility]ITALDiane HARTMANNREHABILITATION HOSPITAL OF SOUTHERN NEW MEXICON (SBHLAB)[address] Monocytes (Bld) [#/Vol] 0.9 10*3/uL Normal 0.0-0.9 [facility] Comment on above: Performed By: #### L [id number] ####Floor Assembler: KELLEY ARRINGTONTERRELL ([id number])[facility]ITALDiane HARTMANNREHABILITATION HOSPITAL OF SOUTHERN NEW MEXICON (SBHLAB)[address] Monocytes/100 WBC (Bld) 7.5 % Normal 5.0-13.0 [facility] Comment on above: Performed By: #### L [id number] ####Floor Assembler: KELLEY DURAND ([id number])[facility]ITALA [place] (SBHLAB)[address] NEUTROPHILS ABSOLUTE 7.5 10*3/uL Normal 1.8-7.5 [facility] Comment on above: Performed By: #### L [id number] ####Floor Assembler: KELLEY DURAND ([id number])[facility]ITALA [place] (SBHLAB)[address] Neutrophils/100 WBC (Bld) 63.9 % Normal 38.0-82.0 [facility] Comment on above: Performed By: #### L [id number] ####Floor Assembler: KELLEY DURAND ([id number])[facility]ITALA BARBREHABILITATION HOSPITAL OF SOU[facility] MEXICON (SBHLAB)[address] NRBC 0.0 /100 WBCs Normal 0.0-2.0 [facility] Comment on above: Performed By: #### L [id number] ####Floor Assembler: KELLEY DURAND ([id number])[facility]A [place] (SBHLAB)[address] Platelet mean volume (Bld) [Entitic vol] 11.4 fL Normal 9.0-12.7 [facility] Comment on above: Performed By: #### L [id number] ####Floor Assembler: KELLEY DURAND ([id number])[facility]ITALA [place] (SBHLAB)[address] [place] [address] [place] Platelets (Bld) [#/Vol] 236 10*3/uL Normal 140-440 [facility] Comment on above: Performed By: #### L [id number] ####Floor Assembler: KELLEY DURAND ([id number])[facility]ITALA [place] (SBHLAB)[address] RBC (Bld) [#/Vol] 4.28 10*6/uL Normal 3.80-5.20 [facility] Comment on above: Performed By: #### L [id number] ####Floor Assembler: KELLEY DURAND ([id number])[facility]ITALA [facility] KATEREHABILITATION HOSPITAL [facility] S[facility] M[facility]ICON (SBHLAB)[address] WBC (Bld) [#/Vol] 11.8 10*3/uL High 3.6-10.7 [facility] Comment on above: Performed By: #### L [id number] ####Floor Assembler: KELLEY DURAND ([id number])[facility]ITALA [facility] KATEREHABILITATION HOSPITAL OF SOU[facility] MEXICON (SBHLAB)[address] COMPREHENSIVE METABOLIC PANE [place] 11-18-2024 Albumin [Mass/Vol] 2.0 g/dL Low 3.4-4.8 [facility] Comment on above: Performed By: #### L [id number] #### Floor Assembler: KELLEY DURAND ([id number]) [facility] (SBHLAB) [address] ALP [Catalytic activity/Vol] 67 U/L Normal 40-150 [facility] Comment on above: Performed By: #### L [id number] #### Floor Assembler: KELLEY DURAND ([id number]) [facility] (SBHLAB) [address] ALT [Catalytic activity/Vol] 22 U/L Normal <30 [facility] Comment on above: Performed By: #### L [id number] #### Floor Assembler: KELLEY DURAND ([id number]) [facility] (SBHLAB) [address] Anion gap [Moles/Vol] 7 mmol/L Normal 3-13 [facility] Comment on above: Performed By: #### L [id number] #### Floor Assembler: KELLEY DURAND ([id number]) [facility] (SBHLAB) [address] AST [Catalytic activity/Vol] 31 U/L Normal <34 [facility] Comment on above: Performed By: #### L [id number] #### Floor Assembler: KELLEY DURAND ([id number]) [facility]ITALDiane BAIRDN (SBHLAB) [address] Bilirubin [Mass/Vol] 0.2 mg/dL Normal <1.2 [facility] Comment on above: Performed By: #### L [id number] #### Floor Assembler: KELLEY DURAND ([id number]) [facility]ITALDiane HARTMANNREHABILITATION HOSPITAL OF SOU[facility] MEXICON (SBHLAB) [address] Calcium [Mass/Vol] 8.3 mg/dL Low 8.8-10.0 [facility] Comment on above: Performed By: #### L [id number] #### Floor Assembler: KELLEY DURAND ([id number]) [facility]ITALDiane BAIRDN (SBHLAB) [address] Chloride [Moles/Vol] 110 mmol/L High 98-107 [facility] Comment on above: Performed By: #### L [id number] #### Floor Assembler: KELLEY DURAND ([id number]) [facility]PITALDiane BARBCHRISTINAN (SBHLAB) [address] CO2 [Moles/Vol] 24 mmol/L Normal 23-31 [facility] Comment on above: Performed By: #### L [id number] #### Floor Assembler: KELLEY DURAND ([id number]) [facility]ITALDiane BAIRDN (SBHLAB) [address] Creatinine [Mass/Vol] 1.27 mg/dL High 0.57-1.11 [facility] Comment on above: Performed By: #### L [id number] #### Floor Assembler: KELLEY DURAND ([id number]) [facility]ITALDiane HARTMANNREHABILITATION HOSPITAL OF S[facility] MEXICON (SBHLAB) [address] GLOMERULAR FILTRATION RATE ML/MIN/1.73 SQ M.PREDICTED 41.8 mL/min/1.73m*2 Low >60.0 [facility] Comment on above: Result Comment: Calc ulation based on the Chronic Kidney Disease Epidemiology Collaboration (CKD-EPI) equation refit without adjustment for race Performed By: #### L [id number] #### Floor Assembler: KELLEY DURAND ([id number]) [facility] (SBHLAB) [address] Glucose [Mass/Vol] 49 mg/dL Critically low 82-115 [facility] Comment on above: Performed By: #### L [id number] #### Floor Assembler: KELLEY DURAND ([id number]) [facility] (SBHLAB) [address] Potassium [Moles/Vol] 4.3 mmol/L Normal 3.5-5.1 [facility] Comment on above: Result Comment: [facility] potassium values may be up to 0.5 mmol/L lower than serum values. Performed By: #### L [id number] #### Floor Assembler: KELLEY DURAND ([id number]) [facility] (SBHLAB) [address] Protein [Mass/Vol] 5.4 g/dL Low 6.4-8.3 [facility] Comment on above: Performed By: #### L [id number] #### Floor Assembler: KELLEY DURAND ([id number]) [facility] (HLAB) [address] Sodium [Moles/Vol] 141 mmol/L Normal 136-145 [facility] Comment on above: Performed By: #### L [id number] #### Floor Assembler: KELLEY DURAND ([id number]) [facility] (SBHLAB) [address] Urea nitrogen [Mass/Vol] 31 mg/dL High 9-23 [facility] Comment on above: Performed By: #### L [id number] #### Floor Assembler: KELLEY DURAND ([id number]) [facility] (SBHLAB) [address] Comprehensive metabolic 1998 panelon 11-18-2024 Albumin [Mass/Vol] 2 g/dL Low 3.4 - 4.8 g/dL [facility] ALP [Catalytic activity/Vol] 67 U/L 40 - 150 U/L [facility] ALT [Catalytic activity/Vol] 22 U/L NINF - 30 U/L [facility] Anion gap [Moles/Vol] 7 mmol/L 3 - 13 mmol/L [facility] AST [Catalytic activity/Vol] 31 U/L NINF - 34 U/L [facility] Bilirubin [Mass/Vol] 0.2 mg/dL NINF - 1.2 mg/dL [facility] Calcium [Mass/Vol] 8.3 mg/dL Low 8.8 - 10. 0 mg/dL [facility] Chloride [Moles/Vol] 110 mmol/L High 98 - 10 7 mmol/L [facility] CO2 [Moles/Vol] 24 mmol/L 23 - 31 mmol/L [facility] Creatinine [Mass/Vol] 1.27 mg/dL High 0.57 - 1.11 mg/dL [facility] GFR/1.73 sq M.predicted (S/P/Bld) [Vol rate/Area] 41.8 mL/min Low - PINF [facility] Comment on above: Calculation based on the Chronic Kidney Disease Epidemiology Collaboration (CKD-EPI) equation refit without adjustment for race Glucose [Mass/Vol] 49 mg/dL Critically low 82 - 11 5 mg/dL [facility] Interpretation and review of laboratory results Abnormal [facility] Potassium [Moles/Vol] 4.3 mmol/L 3.5 - 5.1 mmol/L [facility] Comment on above: Plasma potassium marialuisa ues may be up to 0.5 mmol/L lower than serum values. Protein [Mass/Vol] 5.4 g/dL Low 6.4 - 8.3 g/dL [facility] Sodium [Moles/Vol] 141 mmol/L 136 - 145 mmol/L [facility] Urea nitrogen [Mass/Vol] 31 mg/dL High 9 - 23 mg/dL [facility] Laboratory - Chemistry and C hemistry - challengeon 11-18-2024 Glucose [Mass/Vol] 247 mg/dL High 70 - 100 mg/dL [facility] Glucose [Mass/Vol] 115 mg/dL High 70 - 100 mg/dL [facility] Glucose [Mass/Vol] 188 mg/dL High 70 - 100 mg/dL [facility] Glucose [Mass/Vol] 152 mg/dL High 70 - 100 mg/dL [facility] Glucose [Mass/Vol] 77 mg/dL 70 - 100 mg/dL [facility] No Panel Informationon 11-18 Interpretation and review of laboratory results Abnormal [facility] Performed by: [facility], [address] [facility] [address] CLIA ID: [id number] [facility] Interpretation and review of laboratory results Abnormal [facility] Performed by: [facility] [place] [facility], [address] [facility] [address] CLIA ID: [id number] [facility] Interpretation and review of laboratory results Abnormal [facility] Performed by: [facility], [address] [facility] [address] CLIA ID: [id number] [facility] Interpretation and review of laboratory results Abnormal [facility] Performed by: [facility], [address] [facility] [address] CLIA ID: [id number] [facility] Interpretation and review of laboratory results Normal [facility] Performed by: [facility] [place] [facility], [address] [place] [id number] CLIA ID: [id number] [facility] Nursing Noteon 11-18-2024 Nursing Note Wound Care consulted for Pressure Injury Prevention. Pt's Trey score= 13 on 11/18 Pt's pressure points assessed. Pt's Heels, Back, Elbows, Occiput and ears all intact. Pt turned with max assist of 1 (this RN) for posterior assessment. MASD noted to left groin. See photo in media tab. Right medial thigh with two proximal and distal blisters. See photo in media tab. MASD noted to perirectal area. Partial thickness wound noted to coccyx, measures 0.2cm x 0.2cm x 0.1cm, with surrounding blanchable erythema. See photo below. Wound [employer] group consulted/notified. Pt incontinent of stool at this time. Pads changed, incontinence care performed, linens changed, gown changed, barrier ointment applied. Prevention Measures in place, including: [place] sheet with pillows/wedges, Foam heel protectors (obtained and applied), Heels elevated off bed on pillows, Zinc/Moisture Barrier ointment (applied), Waffle chair cushion (obtain for pt once getting up out of bed to chair). Skin Care precaution order set in place. Dietitian consult order placed d/t wounds. PT/OT consult in place. Will continue to follow pt. Please secure chat for any questions or concerns. Karmen Swartz RN [facility] Progress Noteon 11-18-2024 Progress Note Nutrition update completed. Chart reviewed. Patient continues as a level 1. Normal [facility] 30on 11-17-2024 30 Problem: Knowledge Deficit Goal: Patient/family/caregiv er demonstrates understanding of disease process, treatment plan, medications, and discharge instructions Outcome: Progressing Problem: Potential for Compromised Skin Integrity Goal: Nutritional status is improving Outcome: Progressing Problem: Potential for Falls Goal: I will remain free of falls Outcome: Progressing Normal [facility] CBC W Auto Differential pane l (Bld)on 11-17-2024 Basophils (Bld) [#/Vol] 0 10*3/uL 0.0 - 0.2 10*3/uL [facility] [employer] Basophils/100 WBC (Bld) 0.2 % 0.0 - 2.0 % [facility] [employer] Eosinophils (Bld) [#/Vol] 0.3 10*3/uL 0.0 - 0.5 10*3/uL [facility] [employer] Eosinophils/100 WBC (Bld) 2.3 % 0.0 - 6.0 % [facility] Erythrocyte distribution width (RBC) [Ratio] 19.9 % High 11.5 - 15.0 % [facility] [employer] Hematocrit (Bld) [Volume fraction] 32.6 % Low 35.0 - 47.0 % [facility] [employer] Hemoglobin (Bld) [Mass/Vol] 10.2 g/dL Low 11.7 - 16.0 g/dL [facility] [employer] Immature granulocytes (Bld) [#/Vol] 0.1 10*3/uL High NINF - 0.1 10*3/uL [facility] [employer] Immature granulocytes/100 WBC (Bld) 0.8 % 0.0 - 2.0 % [facility] [employer] Interpretation and review of laboratory results Abnormal [facility] [employer] Lymphocytes (Bld) [#/Vol] 2.3 10*3/uL 1.0 - 4.3 10*3/uL [facility] Lymphocytes/100 WBC (Bld) 17.6 % 15.0 - 45.0 % [facility] MCH (RBC) [Entitic mass] 24.1 pg Low 26.0 - 34.0 pg [facility] MCHC (RBC) [Mass/Vol] 31.3 % 30.5 - 36.0 % [facility] MCV (RBC) [Entitic vol] 76.9 fL Low 77.0 - 99.0 fL [facility] Monocytes (Bld) [#/Vol] 0.8 10*3/uL 0.0 - 0.9 10*3/uL [facility] Monocytes/100 WBC (Bld) 6.6 % 5.0 - 13.0 % [facility] Neutrophils (Bld) [#/Vol] 9.3 10*3/uL High 1.8 - 7.5 10*3/uL [facility] Neutrophils/100 WBC (Bld) 72.5 % 38.0 - 82.0 % [facility] Nucleated RBC/100 WBC (Bld) [Ratio] 0 % [facility] Platelet mean volume (Bld) [Entitic vol] 11.6 fL 9.0 - 12.7 fL [facility] Platelets (Bld) [#/Vol] 202 10*3/uL 140 - 440 10*3/uL [facility] RBC (Bld) [#/Vol] 4.24 10*6/uL 3.80 - 5.2 0 10*6/uL [facility] WBC (Bld) [#/Vol] 12.8 10*3/uL High 3.6 - 10.7 10*3/uL [facility] CBC WITH AUTO DIFFERENTIALon 11-17-2024 Basophils (Bld) [#/Vol] 0.0 10*3/uL Normal 0.0-0.2 [facility] Comment on above: Performed By: #### L [id number] ####Floor Assembler: KELLEY DURAND ([id number])[facility] ([facility])[address] [place] [address] Basophils/100 WBC (Bld) 0.2 % Normal 0.0-2.0 [facility] Comment on above: Performed By: #### L [id number] ####Floor Assembler: KELLEY DURAND ([id number])[facility]PITALDiane BARBREHABILITATION HOSPITAL OF SOU[facility] MEXICON (SBHLAB)[address] Eosinophils (Bld) [#/Vol] 0.3 10*3/uL Normal 0.0-0.5 [facility] Comment on above: Performed By: #### L [id number] ####Floor Assembler: KELLEY ARRINGTONTERRELL ([id number])[facility]ITALA [facility] (SBAB)[address] Eosinophils/100 WBC (Bld) 2.3 % Normal 0.0-6.0 [facility] Comment on above: Performed By: #### L [id number] ####Floor Assembler: KELLEY ARRINGTONTERRELL ([phone])[facility] ([facility])[address] [place] [address] Erythrocyte distribution width (RBC) [Ratio] 19.9 % High 11.5-15.0 [facility] Comment on above: Performed By: #### L [id number] ####Floor Assembler: KELLEY ARRINGTONTERRELL ([id number])[facility] ([facility])[address] [place] [address] Hematocrit (Bld) [Volume fraction] 32.6 % Low 35.0-47.0 [facility] Comment on above: Performed By: #### L [id number] ####Floor Assembler: KELLEY DURAND ([phone])[facility] ([facility])[address] [place] [address] Hemoglobin (Bld) [Mass/Vol] 10.2 g/dL Low 11.7-16.0 [facility] Comment on above: Performed By: #### L [id number] ####Floor Assembler: KELLEY DURAND ([id number])[facility] ([facility])[address] IMMATURE GRANS % 0.8 % Normal 0.0-2.0 [facility] Comment on above: Performed By: #### L [id number] ####Floor Assembler: KELLEY ARCINIEGACER ([phone])[facility]PITALDiane BAIRDIsrrael (SBHLAB)[address] IMMATURE GRANS ABSOLUTE 0.1 10*3/uL High <0.1 [facility] Comment on above: Performed By: #### L [id number] ####Floor Assembler: KELLEY ALFAROCORINA ([id number])[facility]ITALDiane HARTMANNREHABILITATION HOSPITAL OF S[facility] MEXICON (SBHLAB)[address] Lymphocytes (Bld) [#/Vol] 2.3 10*3/uL Normal 1.0-4.3 [facility] Comment on above: Performed By: #### L [id number] ####Floor Assembler: KELLEY ARRINGTONTERRELL ([id number])[facility]ITALDiane HARTMANNREHABILITATION HOSPITAL [facility] (SBHLAB)[address] Lymphocytes/100 WBC (Bld) 17.6 % Normal 15.0-45.0 [facility] Comment on above: Performed By: #### L [id number] ####Floor Assembler: KELLEY ARRINGTONTERRELL ([id number])[facility]ITALDiane BAIRDN (SBHLAB)[address] MCH (RBC) [Entitic mass] 24.1 pg Low 26.0-34.0 [facility] Comment on above: Performed By: #### L [id number] ####Floor Assembler: KELLEY ARRINGTONTERRELL ([phone])[facility]ITALDiane HARTMANNREHABILITATION H[facility] (SBHLAB)[address] MCHC 31.3 % Normal 30.5-36.0 [facility] Comment on above: Performed By: #### L [id number] ####Floor Assembler: KELLEY DURAND ([phone])[facility]ITALDiane HARTMANNCHRISTINAN (SBHLAB)[address] MCV (RBC) [Entitic vol] 76.9 fL Low 77.0-99.0 [facility] Comment on above: Performed By: #### L [id number] ####Floor Assembler: KELLEY DURAND ([id number])[facility] [place] (SBHLAB)[address] Monocytes (Bld) [#/Vol] 0.8 10*3/uL Normal 0.0-0.9 [facility] Comment on above: Performed By: #### L [id number] ####Floor Assembler: KELLEY DURAND ([id number])[facility] [place] (SBHLAB)[address] Monocytes/100 WBC (Bld) 6.6 % Normal 5.0-13.0 [facility] Comment on above: Performed By: #### L [id number] ####Floor Assembler: KELLEY DURAND ([id number])[facility] [place] (SBHLAB)[address] NEUTROPHILS ABSOLUTE 9.3 10*3/uL High 1.8-7.5 [facility] Comment on above: Performed By: #### L [id number] ####Floor Assembler: KELLEY DURAND ([id number])[facility] [place] (SBHLAB)[address] Neutrophils/100 WBC (Bld) 72.5 % Normal 38.0-82.0 [facility] Comment on above: Performed By: #### L [id number] ####Floor Assembler: KELLEY DURAND ([id number])[facility] [place] (SBHLAB)[address] NRBC 0.0 /100 WBCs Normal 0.0-2.0 [facility] Comment on above: Performed By: #### L [id number] ####Floor Assembler: KELLEY DURAND ([id number])[facility] [place] (SBHLAB)[address] Platelet mean volume (Bld) [Entitic vol] 11.6 fL Normal 9.0-12.7 [facility] Comment on above: Performed By: #### L [id number] ####Floor Assembler: KELLEY DURAND ([id number])[facility] [place] (SBHLAB)[address] Platelets (Bld) [#/Vol] 202 10*3/uL Normal 140-440 [facility] Comment on above: Performed By: #### L [id number] ####Floor Assembler: KELLEY DURAND ([id number])[facility] [place] (SBHLAB)[address] RBC (Bld) [#/Vol] 4.24 10*6/uL Normal 3.80-5.20 [facility] Comment on above: Performed By: #### L [id number] ####Floor Assembler: KELLEY DURAND ([id number])[facility] [place] (SBHLAB)[address] WBC (Bld) [#/Vol] 12.8 10*3/uL High 3.6-10.7 [facility] Comment on above: Performed By: #### L [id number] ####Floor Assembler: KELLEY DURAND ([id number])[facility] [place] (SBHLAB)[address] COMPREHENSIVE METABOLIC PANE [place] 11-17-2024 Albumin [Mass/Vol] 1.9 g/dL Low 3.4-4.8 [facility] Comment on above: Performed By: #### L [id number] ####Floor Assembler: KELLEY DURAND ([id number])[facility] [place] (SBHLAB)[address] ALP [Catalytic activity/Vol] 66 U/L Normal 40-150 [facility] Comment on above: Performed By: #### L [id number] ####Floor Assembler: KELLEY DURAND ([id number])[facility] [place] (SBHLAB)[address] ALT [Catalytic activity/Vol] 17 U/L Normal <30 [facility] Comment on above: Performed By: #### L [id number] ####Floor Assembler: KELLEY DURAND ([id number])[facility] (SBHLAB)[address] Anion gap [Moles/Vol] 8 mmol/L Normal 3-13 [facility] Comment on above: Performed By: #### L [id number] ####Floor Assembler: KELLEY DURAND ([id number])[facility] [place] (SBHLAB)[address] AST [Catalytic activity/Vol] 27 U/L Normal <34 [facility] Comment on above: Performed By: #### L [id number] ####Floor Assembler: KELLEY DURAND ([id number])[facility] [place] (SBHLAB)[address] Bilirubin [Mass/Vol] 0.2 mg/dL Normal <1.2 [facility] Comment on above: Performed By: #### L [id number] ####Floor Assembler: KELLEY DURAND ([id number])[facility] [place] (SBHLAB)[address] Calcium [Mass/Vol] 8.1 mg/dL Low 8.8-10.0 [facility] Comment on above: Performed By: #### L [id number] ####Floor Assembler: KELLEY DURAND ([id number])[facility] (SBHLAB)[address] Chloride [Moles/Vol] 108 mmol/L High 98-107 [facility] Comment on above: Performed By: #### L [id number] ####Floor Assembler: KELLEY DURAND ([id number])[facility] [place] (SBHLAB)[address] [place] [address] [place] CO2 [Moles/Vol] 22 mmol/L Low 23-31 [facility] Comment on above: Performed By: #### L [id number] ####Floor Assembler: KELLEY DURAND ([id number])[facility] [place] ([facility])[address] [place] [address] [place] Creatinine [Mass/Vol] 1.18 mg/dL High 0.57-1.11 [facility] Comment on above: Performed By: #### L [id number] ####Floor Assembler: KELLEY DURAND ([id number])[facility] ([facility])[address] [place] [address] GLOMERULAR FILTRATION RATE ML/MIN/1.73 SQ M.PREDICTED 45.6 mL/min/1.73m*2 Low >60.0 [facility] Comment on above: Result Comment: Calc ulation based on the Chronic Kidney Disease Epidemiology Collaboration (CKD-EPI) equation refit without adjustment for race Performed By: #### L [id number] ####Floor Assembler: KELLEY DURAND ([phone])[facility] ([facility])[address] [place] [address] Glucose [Mass/Vol] 72 mg/dL Low 82-115 [facility] Comment on above: Performed By: #### L [id number] ####Floor Assembler: KELLEY DURAND ([id number])[facility] ([facility])[address] [place] [address] Potassium [Moles/Vol] 4.0 mmol/L Normal 3.5-5.1 [facility] Comment on above: Result Comment: [facility] potassium values may be up to 0.5 mmol/L lower than serum values. Performed By: #### L [id number] ####Floor Assembler: KELLEY DURAND ([id number])[facility] ([facility])[address] [place] [address] Protein [Mass/Vol] 5.2 g/dL Low 6.4-8.3 [facility] Comment on above: Performed By: #### L [id number] ####Floor Assembler: KELLEY DURAND ([phone])[facility] ([facility])[address] [place] [address] Sodium [Moles/Vol] 138 mmol/L Normal 136-145 [facility] Comment on above: Performed By: #### L [id number] ####Floor Assembler: KELLEY DURAND ([phone])[facility] ([facility])[address] Urea nitrogen [Mass/Vol] 30 mg/dL High 9-23 [facility] Comment on above: Performed By: #### L [id number] ####Floor Assembler: KELLEY DURAND ([phone])[facility] MEXICOIsr[facility] (SBHLAB)[address] Comprehensive metabolic 1998 panelon 11-17-2024 Albumin [Mass/Vol] 1.9 g/dL Low 3.4 - 4.8 g/dL [facility] ALP [Catalytic activity/Vol] 66 U/L 40 - 150 U/L [facility] ALT [Catalytic activity/Vol] 17 U/L NINF - 30 U/L [facility] Anion gap [Moles/Vol] 8 mmol/L 3 - 13 mmol/L [facility] AST [Catalytic activity/Vol] 27 U[facility]L [facility] U/L [facility] Bilirubin [Mass/Vol] 0.2 mg/dL NINF - 1.2 mg/dL [facility] Calcium [Mass/Vol] 8.1 mg/dL Low 8.8 - 10. 0 mg/dL [facility] Chloride [Moles/Vol] 108 mmol/L High 98 - 10 7 mmol/L [facility] CO2 [Moles/Vol] 22 mmol/L Low 23 - 31 mmol/L [facility] Creatinine [Mass/Vol] 1.18 mg/dL High 0.57 - 1.11 mg/dL [facility] GFR/1.73 sq M.predicted (S/P/Bld) [Vol rate/Area] 45.6 mL/min Low - PINF [facility] Comment on above: Calculation based on the Chronic Kidney Disease Epidemiology Collaboration (CKD-EPI) equation refit without adjustment for race Glucose [Mass/Vol] 72 mg/dL Low 82 - 115 mg/dL [facility] Interpretation and review of laboratory results Abnormal [facility] Potassium [Moles/Vol] 4 mmol/L 3.5 - 5.1 mmol/L [facility] Comment on above: Plasma potassium marialuisa ues may be up to 0.5 mmol/L lower than serum values. Protein [Mass/Vol] 5.2 g/dL Low 6.4 - 8.3 g/dL [facility] Sodium [Moles/Vol] 138 mmol/L 136 - 145 mmol/L [facility] Urea nitrogen [Mass/Vol] 30 mg/dL High 9 - 23 mg/dL [facility] Laboratory - Chemistry and C hemistry - challengeon 11-17-2024 Glucose [Mass/Vol] 185 mg/dL High 70 - 100 mg/dL [facility] Glucose [Mass/Vol] 182 mg/dL High 70 - 100 mg/dL [facility] Glucose [Mass/Vol] 284 mg/dL High 70 - 100 mg/dL [facility] Glucose [Mass/Vol] 77 mg/dL 70 - 100 mg/dL [facility] No Panel Informationon 11-17 Interpretation and review of laboratory results Abnormal [facility] Performed by: [facility], [address] [place] [id number] CLIA ID: [id number] [facility] Interpretation and review of laboratory results Abnormal [facility] Performed by: [facility], [address] [place] [id number] CLIA ID: [id number] [facility] Interpretation and review of laboratory results Abnormal [facility] Performed by: [facility], [address] [place] [id number] CLIA ID: [id number] [facility] Interpretation and review of laboratory results Normal [facility] Performed by: [facility], [address] [place] [id number] CLIA ID: [id number] [facility] Progress Noteon 11-17-2024 Progress Note OCCUPATIONAL THERAPY [facility] Treatment Note Name/MRN: Margarita Betancourt ([id number]) Date of : 1940 Age: 84 y.o. Room/Bed: B2-248/B2-248 B Visit #: 2 out of 5 visits Discharge Recommendation: [facility] Facility Assessment Pt performed bed mobility at [facility]. Sitting balance MODA. Pt is limited by balance, endurance, and strength. Pt is functioning below baseline and would benefit from skilled OT services to maximize safety and independence with ADLs and functional mobility. Rec SNF at discharge. Subjective Agreeable for OT this date. Per RN, geovanni for tx Pain: Pt denies any current pain. Medical Precautions: Enhanced Contact Proper PPE donned/doffed in accordance with facility standards. Fall Risk: [place] Fall Risk Score: 100 (High Risk) Precautions/Restrictio ns: N/A Family/Caregiver Present: none Objective Bed Mobility Supine to sit: Max Assist Sit to supine: Max Assist Pt performed bed mobility at MAXA for supine to EOB with limited participation this date requiring max cuing for initiation and continuation this date. Denied dizziness this date but pt going in and out of sleep throughout. Sternal rubs to wake back up. Return to supine at MAXA for controled descent and positioning. Transfers/Mobility Sitting balance: Max Assist Sitting balance MAXA for balance with retro and L lateral lean this date with pt presenting with increased fatigue. Not appropriate to trial standing or OOB tasks at this time d/t pt unable to stay awake. Vitals checked WNL. Device(s) used: Used therapist for support Cognition - Safety judgement: decreased awareness of need for assistance and decreased awareness of need for safety - Problem solving: assistance required to implement solutions, assistance required to identify errors made, assistance required to correct errors made, and decreased awareness of errors - Insights: decreased awareness of deficits - Initiation: requires cues for some - Sequencing: requires cues for some Plan Continue acute OT per plan of care. Safety/Education Safety Safety Devices in place: All fall risk precautions in place, call light within reach, left in bed, and patient at risk for falls Restraints: No Education Education Given To: patient Education Provided: OT Role, Plan of Care, Transfer Training, Fall Prevention Education, and Benefits of Increasing Activity Education Method: Verbal and Teach Back Barriers to Learning: Cognition Education Outcome: Continued Education Needed AM-PAC AM-PAC Inpatient Daily Activity Raw Score: 18 ADL Inpatient CMS G-Code Modifier: CK Goals Patient Stated Goal: none stated Encounter Problems Encounter Problems (Active) Balance Patient will maintain dynamic standing balance for 3 minutes with supervision in order to demonstrate decreased risk of falling. (Not Addressed) Start: 11/13/24 Expected End: 11/18/24 Dressings Lower Extremities Patient will complete LB ADLs with Mod I (Not Addressed) Start: 11/13/24 Expected End: 11/18/24 Mobility pt will perform functional mobility and transfers with LRAD and supervision (Not Addressed) Start: 11/13/24 Expected End: 11/18/24 Toileting Patient will complete toileting tasks at standard toilet with modified independence. (Not Addressed) Start: 11/13/24 Expected End: 11/18/24 Transfers Patient will perform bed mobility with modified independence in order to improve independence and prepare for out of bed mobility. (Slowly Progressing) Start: 11/13/24 Expected End: 11/18/24 Therapy Time Individual Co-treatment Time In 1115 Time Out 1128 Minutes 13 Timed Code Treatment Minutes: 13 Minutes (1 TA) [facility]o [facility] 30on 11-16-2024 30 Problem: Knowledge Deficit Goal: Patient/family/caregiv er demonstrates understanding of disease process, treatment plan, medications, and discharge instructions 11/16/2024 06 by Kayley English RN Outcome: Progressing 11/16/2024 050 by Kayley English RN Outcome: Progressing 11/16/2024 0508 by Kayley English RN Outcome: Progressing Problem: Potential for Compromised Skin Integrity Goal: Skin Integrity is Maintained or Improved 11/16/2024 06 by Kayley English RN Outcome: Progressing 11/16/2024 0508 by Kayley English RN Outcome: Progressing 11/16/2024 0508 by Kayley English RN Outcome: Progressing Goal: Nutritional status is improving 11/16/2024 06 by Kayley English RN Outcome: Progressing 11/16/2024 0508 by Kayley English RN Outcome: Progressing 11/16/2024 0508 by Kayley English RN Outcome: Progressing Problem: Urinary Incontinence Goal: Perineal skin integrity is maintained or improved 11/16/2024 06 by Kayley English RN Outcome: Progressing 11/16/2024 0508 by Kayley English RN Outcome: Progressing 11/16/2024 0508 by Kayley English RN Outcome: Progressing Problem: Potential for Falls Goal: I will remain free of falls 11/16/2024 06 by Kayley English RN Outcome: Progressing 11/16/2024 0508 by Kayley English RN Outcome: Progressing 11/16/2024 0508 by Kayley English RN Outcome: Progressing Problem: Discharge Barriers Goal: My discharge needs are met 11/16/2024 0613 by Kayley English RN Outcome: Progressing 11/16/2024 0508 by Kayley English RN Outcome: Progressing 11/16/2024 0508 by Kayley English RN Outcome: Progressing Normal [facility] 30 Problem: Knowledge Deficit Goal: Patient/family/caregiv er demonstrates understanding of disease process, treatment plan, medications, and discharge instructions 11/16/2024 0508 by Kayley English RN Outcome: Progressing 11/16/2024 0508 by Kayley English RN Outcome: Progressing Problem: Potential for Compromised Skin Integrity Goal: Skin Integrity is Maintained or Improved 11/16/2024 050 by Kayley English RN Outcome: Progressing 11/16/2024 050 by Kayley English RN Outcome: Progressing Goal: Nutritional status is improving 11/16/2024 050 by Kayley English RN Outcome: Progressing 11/16/2024 050 by Kayley English RN Outcome: Progressing Problem: Urinary Incontinence Goal: Perineal skin integrity is maintained or improved 11/16/2024 0508 by Kayley English RN Outcome: Progressing 11/16/2024 050 by Kayley English RN Outcome: Progressing Problem: Potential for Falls Goal: I will remain free of falls 11/16/2024 0508 by Kayley English RN Outcome: Progressing 11/16/2024 0508 by Kayley English RN Outcome: Progressing Problem: Discharge Barriers Goal: My discharge needs are met 11/16/2024 0508 by Kayley English RN Outcome: Progressing 11/16/2024 0508 by Kayley English RN Outcome: Progressing Normal [facility] 30 Problem: Knowledge Deficit Goal: Patient/family/caregiv er demonstrates understanding of disease process, treatment plan, medications, and discharge instructions Outcome: Progressing Problem: Potential for Compromised Skin Integrity Goal: Skin Integrity is Maintained or Improved Outcome: Progressing Goal: Nutritional status is improving Outcome: Progressing Problem: Urinary Incontinence Goal: Perineal skin integrity is maintained or improved Outcome: Progressing Problem: Potential for Falls Goal: I will remain free of falls Outcome: Progressing Problem: Discharge Barriers Goal: My discharge needs are met Outcome: Progressing Normal [facility] C. difficile toxin genes CRISTOFER +probe Ql (Stl)on 11-16-2024 C. difficile toxin B tcdB gene CRISTOFER+probe Ql (Stl) Not detected Not Detected [facility] Interpretation and review of laboratory results Normal [facility] C. difficile infecti on is unlikely to be present. Methodology: Real-time PCR [facility] CBC W Auto Differential pane l (Bld)on 11-16-2024 Basophils (Bld) [#/Vol] 0 10*3/uL 0.0 - 0.2 10*3/uL [facility] Basophils/100 WBC (Bld) 0.2 % 0.0 - 2.0 % [facility] Eosinophils (Bld) [#/Vol] 0.4 10*3/uL 0.0 - 0.5 10*3/uL [facility] Eosinophils/100 WBC (Bld) 2.4 % 0.0 - 6.0 % [facility] Erythrocyte distribution width (RBC) [Ratio] 19.9 % High 11.5 - 15.0 % [facility] Hematocrit (Bld) [Volume fraction] 34.3 % Low 35.0 - 47.0 % [facility] Hemoglobin (Bld) [Mass/Vol] 10.8 g/dL Low 11.7 - 16.0 g/dL [facility] Immature granulocytes (Bld) [#/Vol] 0.1 10*3/uL High NINF - 0.1 10*3/uL [facility] Immature granulocytes/100 WBC (Bld) 0.4 % 0.0 - 2.0 % [facility] Interpretation and review of laboratory results Abnormal [facility] IPF 5 [facility] Lymphocytes (Bld) [#/Vol] 1.8 10*3/uL 1.0 - 4.3 10*3/uL [facility] Lymphocytes/100 WBC (Bld) 12.6 % Low 15.0 - 45.0 % [facility] MCH (RBC) [Entitic mass] 24.2 pg Low 26.0 - 34.0 pg [facility] MCHC (RBC) [Mass/Vol] 31.5 % 30.5 - 36.0 % [facility] MCV (RBC) [Entitic vol] 76.7 fL Low 77.0 - 99.0 fL [facility] Monocytes (Bld) [#/Vol] 1.1 10*3/uL High 0.0 - 0.9 10*3/uL [facility] Monocytes/100 WBC (Bld) 7.6 % 5.0 - 13.0 % [facility] Neutrophils (Bld) [#/Vol] 11.2 10*3/uL High 1.8 - 7.5 10*3/uL [facility] Neutrophils/100 WBC (Bld) 76.8 % 38.0 - 82.0 % [facility] Nucleated RBC/100 WBC (Bld) [Ratio] 0 % [facility] Platelet mean volume (Bld) [Entitic vol] 11.5 fL 9.0 - 12.7 fL [facility] Platelets (Bld) [#/Vol] 160 10*3/uL 140 - 440 10*3/uL [facility] RBC (Bld) [#/Vol] 4.47 10*6/uL 3.80 - 5.2 0 10*6/uL [facility] WBC (Bld) [#/Vol] 14.6 10*3/uL High 3.6 - 10.7 10*3/uL [facility] CBC WITH AUTO DIFFERENTIALon 11-16-2024 Basophils (Bld) [#/Vol] 0.0 10*3/uL Normal 0.0-0.2 [facility] Comment on above: Performed By: #### L [id number] ####Floor Assembler: KELLEY DURAND ([id number])[facility])[address] [place] [address] Basophils/100 WBC (Bld) 0.2 % Normal 0.0-2.0 [facility] Comment on above: Performed By: #### L [id number] ####Floor Assembler: KELLEY DURAND ([id number])[facility])[address] [place] [address] Eosinophils (Bld) [#/Vol] 0.4 10*3/uL Normal 0.0-0.5 [facility] Comment on above: Performed By: #### L [id number] ####Floor Assembler: KELLEY [id number])[facility] ([facility])[address] Eosinophils/100 WBC (Bld) 2.4 % Normal 0.0-6.0 [facility] Comment on above: Performed By: #### L [id number] ####Floor Assembler: KELLEY DURAND ([id number])[facility] Erythrocyte distribution width (RBC) [Ratio] 19.9 % High 11.5-15.0 [facility] Comment on above: Performed By: #### L [id number] ####Floor Assembler: KELLEY DURAND ([id number])[facility])[address] [place] [address] Hematocrit (Bld) [Volume fraction] 34.3 % Low 35.0-47.0 [facility] Comment on above: Performed By: #### L [id number] ####Floor Assembler: KELLEY DURAND ([id number])[facility])[address] [place] [address] Hemoglobin (Bld) [Mass/Vol] 10.8 g/dL Low 11.7-16.0 [facility] Comment on above: Performed By: #### L [id number] ####Floor Assembler: KELLYE DURAND ([id number])[facility])[address] IMMATURE GRANS % 0.4 % Normal 0.0-2.0 [facility] Comment on above: Performed By: #### L [id number] ####Floor Assembler: KELLEY DURAND ([id number])[facility] ([facility])[address] IMMATURE GRANS ABSOLUTE 0.1 10*3/uL High <0.1 [facility] Comment on above: Performed By: #### L [id number] ####Floor Assembler: KELLEY DURAND ([id number])[facility] [place] ([facility])[address] [place] [address] [place] IPF 5 Normal [facility] Comment on above: Performed By: #### L [id number] ####Floor Assembler: KELLEY DURAND ([id number])[facility] [place] ([facility])[address] Lymphocytes (Bld) [#/Vol] 1.8 10*3/uL Normal 1.0-4.3 [facility] Comment on above: Performed By: #### L [id number] ####Floor Assembler: KELLEY DURAND ([id number])[facility] [place] ([facility])[address] Lymphocytes/100 WBC (Bld) 12.6 % Low 15.0-45.0 [facility] Comment on above: Performed By: #### L [id number] ####Floor Assembler: KELLEY DURAND ([id number])[facility] [place] ([facility])[address] MCH (RBC) [Entitic mass] 24.2 pg Low 26.0-34.0 [facility] Comment on above: Performed By: #### L [id number] ####Floor Assembler: KELLEY DURAND ([id number])[facility] [place] ([facility])[address] MCHC 31.5 % Normal 30.5-36.0 [facility] Comment on above: Performed By: #### L [id number] ####Floor Assembler: KELLEY DURAND ([id number])[facility] [place] ([facility])[address] MCV (RBC) [Entitic vol] 76.7 fL Low 77.0-99.0 [facility] Comment on above: Performed By: #### L [id number] ####Floor Assembler: KELLEY DURAND ([id number])[facility] [place] ([facility])[address] [place] [address] [place] Monocytes (Bld) [#/Vol] 1.1 10*3/uL High 0.0-0.9 [facility] Comment on above: Performed By: #### L [id number] ####Floor Assembler: KELLEY ARCINIEGACER ([id number])[facility] [place] ([facility])[address] Monocytes/100 WBC (Bld) 7.6 % Normal 5.0-13.0 [facility] Comment on above: Performed By: #### L [id number] ####Floor Assembler: KELLEY DURAND ([id number])[facility] [place] ([facility])[address] NEUTROPHILS ABSOLUTE 11.2 10*3/uL High 1.8-7.5 [facility] Comment on above: Performed By: #### L [id number] ####Floor Assembler: KELLEY DURAND ([id number])[facility] [place] ([facility])[address] Neutrophils/100 WBC (Bld) 76.8 % Normal 38.0-82.0 [facility] Comment on above: Performed By: #### L [id number] ####Floor Assembler: KELLEY DURAND ([id number])[facility] [place] ([facility])[address] NRBC 0.0 /100 WBCs Normal 0.0-2.0 [facility] Comment on above: Performed By: #### L [id number] ####Floor Assembler: KELLEY DURAND ([id number])[facility] [place] ([facility])[address] Platelet mean volume (Bld) [Entitic vol] 11.5 fL Normal 9.0-12.7 [facility] Comment on above: Performed By: #### L [id number] ####Floor Assembler: KELLEY DURAND ([id number])[facility] [place] ([facility])[address] [place] [address] [place] Platelets (Bld) [#/Vol] 160 10*3/uL Normal 140-440 [facility] Comment on above: Performed By: #### L [id number] ####Floor Assembler: KELLEY DURAND ([id number])[facility]ITALDiane HARTMANNREHABILIT[facility] H[facility]ON (SB[facility])[address] RBC (Bld) [#/Vol] 4.47 10*6/uL Normal 3.80-5.20 [facility] Comment on above: Performed By: #### L [id number] ####Floor Assembler: KELLEY DURAND ([id number])[facility] ([facility])[address] WBC (Bld) [#/Vol] 14.6 10*3/uL High 3.6-10.7 [facility] Comment on above: Performed By: #### L [id number] ####Floor Assembler: KELLEY DURAND ([id number])[facility] ([facility])[address] COMPREHENSIVE METABOLIC PANE [place] 11-16-2024 Albumin [Mass/Vol] 2.1 g/dL Low 3.4-4.8 [facility] Comment on above: Performed By: #### L [id number] #### Floor Assembler: KELLEY DURAND ([id number]) [facility] ([facility]) [address] ALP [Catalytic activity/Vol] 67 U/L Normal 40-150 [facility] Comment on above: Performed By: #### L [id number] #### Floor Assembler: KELLEY DURAND ([id number]) [facility] ([facility]) [address] ALT [Catalytic activity/Vol] 17 U/L Normal <30 [facility] Comment on above: Performed By: #### L [id number] #### Floor Assembler: KELLEY DURAND ([id number]) [facility] ([facility]) [address] Anion gap [Moles/Vol] 7 mmol/L Normal 3-13 [facility] Comment on above: Performed By: #### L [id number] #### Floor Assembler: KELLEY DURAND ([id number]) [facility] ([facility]) [address] AST [Catalytic activity/Vol] 21 U/L Normal <34 [facility] Comment on above: Performed By: #### L [id number] #### Floor Assembler: KELLEY DURAND ([id number]) [facility]ABIL[facility] (HLAB) [address] Bilirubin [Mass/Vol] 0.4 mg/dL Normal <1.2 [facility] Comment on above: Performed By: #### L [id number] #### Floor Assembler: KELLEY DURAND ([id number]) [facility] ([facility] [address] Calcium [Mass/Vol] 8.1 mg/dL Low 8.8-10.0 [facility] Comment on above: Performed By: #### L [id number] #### Floor Assembler: KELLEY DURAND ([id number]) [facility] (HL[facility]) [address] Chloride [Moles/Vol] 108 mmol/L High 98-107 [facility] Comment on above: Performed By: #### L [id number] #### Floor Assembler: KELLEY DURAND ([id number]) [facility]BRE[facility]ABILITATION [facility] ([facility]) [address] [place] [address] [place] CO2 [Moles/Vol] 24 mmol/L Normal 23-31 [facility] [facility] Comment on above: Performed By: #### L [id number] #### Floor Assembler: KELLEY DURAND ([id number]) [facility] (SBHLAB) [address] Creatinine [Mass/Vol] 1.27 mg/dL High 0.57-1.11 [facility] Comment on above: Performed By: #### L [id number] #### Floor Assembler: KELLEY DURAND ([id number]) [facility] (SBHLAB) [address] GLOMERULAR FILTRATION RATE ML/MIN/1.73 SQ M.PREDICTED 41.8 mL/min/1.73m*2 Low >60.0 [facility] Comment on above: Result Comment: Calc ulation based on the Chronic Kidney Disease Epidemiology Collaboration (CKD-EPI) equation refit without adjustment for race Performed By: #### L [id number] #### Floor Assembler: KELLEY DURAND ([id number]) [facility] ([facility]) [address] Glucose [Mass/Vol] 76 mg/dL Low 82-115 [facility] Comment on above: Performed By: #### L [id number] #### Floor Assembler: KELLEY DURAND ([id number]) [facility] ([facility]) [address] Potassium [Moles/Vol] 4.0 mmol/L Normal 3.5-5.1 [facility] Comment on above: Result Comment: [facility] potassium values may be up to 0.5 mmol/L lower than serum values. Performed By: #### L [id number] #### Floor Assembler: KELLEY DURAND ([id number]) [facility] ([facility]) [address] Protein [Mass/Vol] 5.4 g/dL Low 6.4-8.3 [facility] Comment on above: Performed By: #### L [id number] #### Floor Assembler: KELLEY DURAND ([id number]) [facility] (SBHL[facility]) 155 [place] [address] [place] Sodium [Moles/Vol] 139 mmol/L Normal 136-145 [facility] Comment on above: Performed By: #### L [id number] #### Floor Assembler: KELLEY DURAND ([id number]) [facility] (SB[facility]) 155 [place] [address] [place] Urea nitrogen [Mass/Vol] 30 mg/dL High 9-23 [facility] Comment on above: Performed By: #### L [id number] #### Floor Assembler: KELLEY DURAND ([id number]) [facility] (SBHLAB) [address] Comprehensive metabolic 1998 panelon 11-16-2024 Albumin [Mass/Vol] 2.1 g/dL Low 3.4 - 4.8 g/dL [facility] ALP [Catalytic activity/Vol] 67 U/L 40 - 150 U/L [facility] ALT [Catalytic activity/Vol] 17 U/L NINF - 30 U/L [facility] Anion gap [Moles/Vol] 7 mmol/L 3 - 13 mmol/L [facility] AST [Catalytic activity/Vol] 21 U/L NINF - 34 U/L [facility] Bilirubin [Mass/Vol] 0.4 mg/dL NINF - 1.2 mg/dL [facility] Calcium [Mass/Vol] 8.1 mg/dL Low 8.8 - 10. 0 mg/dL [facility] Chloride [Moles/Vol] 108 mmol/L High 98 - 10 7 mmol/L [facility] CO2 [Moles/Vol] 24 mmol/L 23 - 31 mmol/L [facility] Creatinine [Mass/Vol] 1.27 mg/dL High 0.57 - 1.11 mg/dL [facility] GFR/1.73 sq M.predicted (S/P/Bld) [Vol rate/Area] 41.8 mL/min Low - PINF [facility] Comment on above: Calculation based on the Chronic Kidney Disease Epidemiology Collaboration (CKD-EPI) equation refit without adjustment for race Glucose [Mass/Vol] 76 mg/dL Low 82 - 115 mg/dL [facility] Interpretation and review of laboratory results Abnormal [facility] Potassium [Moles/Vol] 4 mmol/L 3.5 - 5.1 mmol/L [facility] Comment on above: Plasma potassium marialuisa ues may be up to 0.5 mmol/L lower than serum values. Protein [Mass/Vol] 5.4 g/dL Low 6.4 - 8.3 g/dL [facility] Sodium [Moles/Vol] 139 mmol/L 136 - 145 mmol/L [facility] Urea nitrogen [Mass/Vol] 30 mg/dL High 9 - 23 mg/dL [facility] Gastrointestinal pathogens p lilia CRISTOFER+probe (Stl)Ordered By: Dolores Cosme on 11-16-2024 Adenovirus F 40/41 Not detected Not Detected [facility] Astrovirus Not detected Not Detected [facility] th Campylobacter Not detected Not Detected [facility] ealth Cryptosporidium Not detected Not Detected [facility] Cyclospora cayetanensis Not detected Not Detected [facility] Entamoeba histolytica Not detected Not Detected [facility] Enterotoxigenic E coli (ETEC) Not detected Not Detected [facility] Giardia lamblia Not detected Not Detected [facility] Interpretation and review of laboratory results Abnormal [facility] Norovirus GI/GII Detected Abnormal Not Detected [facility] Plesiomonas shigelloides Not detected Not Detected [facility] Rotavirus A Not detected Not [facility]ed [facility] Salmonella Not detected Not Detected [facility] Sapovirus Not detected Not Detected [facility] Shiga toxin-producing E coli (STEC) Not detected Not Detected [facility] Shigella/Enteroinvasiv e E coli (EIEC) Not detected Not Detected [facility] Vibrio cholerae Not detected Not Detected [facility] Vibrio species Not detected Not Detected [facility] Yersinia enterocolitica Not detected Not Detected [facility] A positive Norovirus result on the Film Array GI panel should be interpreted in the context of the patient's history and clinical picture. If results are not consistent, result should be confirmed with a Norovirus specific assay. Methodology: Multiplex PCR [facility] Laboratory - Chemistry and C hemistry - challengeon 11-16-2024 Glucose [Mass/Vol] 193 mg/dL High 70 - 100 mg/dL [facility] Glucose [Mass/Vol] 183 mg/dL High 70 - 100 mg/dL [facility] Glucose [Mass/Vol] 236 mg/dL High 70 - 100 mg/dL [facility] Glucose [Mass/Vol] 101 mg/dL High 70 - 100 mg/dL [facility] No Panel Informationon 11-16 Interpretation and review of laboratory results Abnormal [facility] Performed by: Rodney Ford [facility], [address] [place] [id number] CLIA ID: [id number] [facility] Interpretation and review of laboratory results Abnormal [facility] Performed by: [facility], 155 [facility] [address] CLIA ID: [id number] [facility] Interpretation and review of laboratory results Abnormal [facility] Performed by: [facility], 155 [facility] [address] CLIA ID: [id number] [facility] Interpretation and review of laboratory results Abnormal [facility] Performed by: [facility], 155 [facility] [address] CLIA ID: [id number] [facility] Progress Noteon 11-16-2024 Progress Note PHYSICAL THERAPY [facility] Treatment Note Name/MRN: Margarita Betancourt ([id number]) Date of : 1940 Age: 84 y.o. Room[facility]Bed: [facility]248/[facility] B Visit #: 1 out of 8 visits Discharge Recommendation: [facility]pc Facility Equipment Needed: No Prior Level of Function Prior Level of ADL Function: Independent Prior Level of Mobility: Independent; Device: None Prior Level of Transfers: Independent Assessment Pt making some progress toward some PT goals this session. Pt continues to demo limitations in functional mobility, weakness, fatigue, instability, and requires cueing for sequencing and functional mobility. Pt is max A for bed mobility, min-mod A for sitting balance EOB 10 mins, unable to attempt transfers. Pt is unsafe to return home and remains at a high risk for falls. Pt would continue to benefit from skilled PT intervention to address limitations and improve return to PLOF. SNF remains appropriate. Subjective Patient requires encouragement but agreeable to therapy session this date. Per RN, pt is ok to see. Pt has a BM mid session and requires extended time and encouragement to participate in rolling for bed mobility. Pt perseverates on can I have a coffee and asks ~10x during session, while nursing staff obtains coffee. Pain: 0-10 pain scale: 8/10 Location: abdomen, RN made aware Medical Precautions: Enhanced Contact Proper PPE donned/doffed in accordance with facility standards. Fall Risk: [place] Fall Risk Score: 85 (High Risk) Precautions/Restrictio ns: N/A Overall Cognitive Status: Exceptions - Following commands: follows one step commands with increased time and follows one step commands with repetition - Attention span: difficulty attending to directions - Memory: decreased recall of biographical information, decreased recall of precautions, decreased recall of recent events, and decreased short term memory - Safety judgement: decreased awareness of need for assistance - Problem solving: assistance required to generate solutions, assistance required to implement solutions, assistance required to identify errors made, assistance required to correct errors made, and decreased awareness of errors - Initiation: requires cues for some - Sequencing: requires cues for some Overall Orientation Status: Oriented to Person, Disoriented to Situation, Disoriented to Time, and Disoriented to Place Family/Caregiver Present: none Objective Bed Mobility Supine to sit: Max Assist Sit to supine: Max Assist Rolling to right: Max Assist Rolling to left: Max Assist Scooting: Max Assist HOB elevated, use of bed rails, with increased time and effort required, compensations from UEs to complete bed mobility. Max A for trunk and BLE mgmt out and in. Denies dizziness. For rolling for dependent pericare, pt requires max A to initiate and complete rolling to each side and mod A to maintain roll. Max A for scooting to EOB, Max Ax2 to HOB. Unable to assist with bridging technique. Due to poor sitting balance, unsafe to attempt transfers. Balance During Session: Posture: fair Sitting - Static: Min Assist, Mod Assist Sitting - Dynamic: Mod Assist Demos R posterior trunk lean and frequent LOB. Able to maintain balance with BUE support for 5-10 sec if placed but again requires assist to correct or maintain. During LE ex's, requires mod A to maintain. Maintains for 10 mins at EOB with max encouragement. Exercises Exercises Hip Flexion: seated marches 1x10 B Knee Long Arc Quad: 1x10 B Ankle Pumps: 1x10 B Hip abduction into PT resistance: 1x10 B Hip adduction into pillow: 1x10 B Pt educated on therapeutic exercise to improve LE strength while in seated with maximum encouragement required to complete full sets. Pt demos limited AROM. Plan Continue acute PT per plan of care. Safety/Education Safety Safety Devices in place: All fall risk precautions in place, call light within reach, left in bed, gait belt, patient at risk for falls, nurse notified, and no alarms engaged upon entry Restraints: No Education Education Given To: patient Education Provided: PT Role, PT Goals, Plan of Care, Home Exercise Program, Precautions, Energy Conservation, Fall Prevention Education, Discharge Recommendations, and Benefits of Increasing Activity Education Method: Verbal and Demonstration Barriers to Learning: Cognition Education Outcome: Continued Education Needed Outcome Measures AM-PAC AM-PAC Inpatient Mobility Raw Score (No Stairs) : 9 JH-HLM -HLM Score: Static standing (1 or more minutes) Goals Patient Stated Goal: to go home as soon as possible Encounter Problems Encounter Problems (Active) Balance Patient will maintain dynamic standing balance for 8 minutes with CGA in order to demonstrate decreased risk of falling. (Progressing) Start: 11/13/24 Expected End: 11/23/24 Patient will maintain dynamic sitting balance for 8 (more content not included)... Normal [facility] 30on 11-15-2024 30 Problem: Knowledge Deficit Goal: Patient/family/caregiv er demonstrates understanding of disease process, treatment plan, medications, and discharge instructions 11/15/2024522 by Kayley English RN Outcome: Progressing 11/15/2024445 by Kayley English RN Outcome: Progressing Problem: Potential for Compromised Skin Integrity Goal: Skin Integrity is Maintained or Improved 11/15/2024522 by Kayley English RN Outcome: Progressing 11/15/2024445 by Kayley English RN Outcome: Progressing Goal: Nutritional status is improving 11/15/2024522 by Kayley English RN Outcome: Progressing 11/15/2024445 by Kayley English RN Outcome: Progressing Problem: Urinary Incontinence Goal: Perineal skin integrity is maintained or improved 11/15/2024522 by Kayley English RN Outcome: Progressing 11/15/2024445 by Kayley English RN Outcome: Progressing Problem: Potential for Falls Goal: I will remain free of falls 11/15/2024522 by Kayley English RN Outcome: Progressing 11/15/2024445 by Kayley English RN Outcome: Progressing Problem: Discharge Barriers Goal: My discharge needs are met 11/15/2024522 by Kayley English RN Outcome: Progressing 11/15/2024445 by Kayley English RN Outcome: Progressing Normal [facility] 30 Problem: Knowledge Deficit Goal: Patient/family/caregiv er demonstrates understanding of disease process, treatment plan, medications, and discharge instructions Outcome: Progressing Problem: Potential for Compromised Skin Integrity Goal: Skin Integrity is Maintained or Improved Outcome: Progressing Goal: Nutritional status is improving Outcome: Progressing Problem: Urinary Incontinence Goal: Perineal skin integrity is maintained or improved Outcome: Progressing Problem: Potential for Falls Goal: I will remain free of falls Outcome: Progressing Problem: Discharge Barriers Goal: My discharge needs are met Outcome: Progressing Normal [facility] C. DIFFICILE BY PCR WITH REF KRISTEN TO EIAon 11-15-2024 C. DIFFICILE BY PCR WITH REFLEX TO EIA C. DIFFICILE TOXIN PCR Reference Not Detected Not Detected ORDER COMMENTS: C. difficile infection is unlikely to be present. Methodology: Real-time PCR Normal [facility] Comment on above: Performed By: #### L [id number] #### Floor Assembler: KELLEY DURAND ([id number]) [facility] (SBAB) [address] [place] [address] CBC W Auto Differential pane l (Bld)on 11-15-2024 Basophils (Bld) [#/Vol] 0 10*3/uL 0.0 - 0.2 10*3/uL [facility] Basophils/100 WBC (Bld) 0.1 % 0.0 - 2.0 % [facility] Eosinophils (Bld) [#/Vol] 0 10*3/uL 0.0 - 0.5 10*3/uL [facility] Eosinophils/100 WBC (Bld) 0.1 % 0.0 - 6.0 % [facility] Erythrocyte distribution width (RBC) [Ratio] 20 % High 11.5 - 15.0 % [facility] Hematocrit (Bld) [Volume fraction] 35.1 % 35.0 - 47.0 % [facility] Hemoglobin (Bld) [Mass/Vol] 11 g/dL Low 11.7 - 16.0 g/dL [facility] Immature granulocytes (Bld) [#/Vol] 0.1 10*3/uL High NINF - 0.1 10*3/uL [facility] Immature granulocytes/100 WBC (Bld) 0.4 % 0.0 - 2.0 % [facility] Interpretation and review of laboratory results Abnormal [facility] Lymphocytes (Bld) [#/Vol] 1.9 10*3/uL 1.0 - 4.3 10*3/uL [facility] Lymphocytes/100 WBC (Bld) 11.3 % Low 15.0 - 45.0 % [facility] [employer] MCH (RBC) [Entitic mass] 23.9 pg Low 26.0 - 34.0 pg [facility] MCHC (RBC) [Mass/Vol] 31.3 % 30.5 - 36.0 % [facility] [employer] MCV (RBC) [Entitic vol] 76.1 fL Low 77.0 - 99.0 fL [facility] [employer] Monocytes (Bld) [#/Vol] 1.3 10*3/uL High 0.0 - 0.9 10*3/uL [facility] Monocytes/100 WBC (Bld) 7.6 % 5.0 - 13.0 % [facility] Neutrophils (Bld) [#/Vol] 13.5 10*3/uL High 1.8 - 7.5 10*3/uL [facility] Neutrophils/100 WBC (Bld) 80.5 % 38.0 - 82.0 % [facility] [employer] Nucleated RBC/100 WBC (Bld) [Ratio] 0 % [facility] [employer] Platelet mean volume (Bld) [Entitic vol] 10.9 fL 9.0 - 12.7 fL [facility] [employer] Platelets (Bld) [#/Vol] 170 10*3/uL 140 - 440 10*3/uL [facility] RBC (Bld) [#/Vol] 4.61 10*6/uL 3.80 - 5.2 0 10*6/uL [facility] WBC (Bld) [#/Vol] 16.8 10*3/uL High 3.6 - 10.7 10*3/uL [facility] CBC WITH AUTO DIFFERENTIALon 11-15-2024 Basophils (Bld) [#/Vol] 0.0 10*3/uL Normal 0.0-0.2 [facility] [employer] [facility] Comment on above: Performed By: #### L [id number] ####Floor Assembler: KELLEY DURAND ([id number])[facility] ([facility])[address] [place] [address] Basophils/100 WBC (Bld) 0.1 % Normal 0.0-2.0 [facility] Comment on above: Performed By: #### L [id number] ####Floor Assembler: KELLEY ALFARONikolaiTERRELL ([id number])[facility] (SBHLAB)[address] Eosinophils (Bld) [#/Vol] 0.0 10*3/uL Normal 0.0-0.5 [facility] Comment on above: Performed By: #### L [id number] ####Floor Assembler: KELLEY ARRINGTONTERRELL ([id number])[facility] (SBAB)[address] Eosinophils/100 WBC (Bld) 0.1 % Normal 0.0-6.0 [facility] Comment on above: Performed By: #### L [id number] ####Floor Assembler: KELLEY LADARIUS ([id number])[facility] [place] [address] Erythrocyte distribution width (RBC) [Ratio] 20.0 % High 11.5-15.0 [facility] Comment on above: Performed By: #### L [id number] ####Floor Assembler: KELLEY ALFARONikolaiTERRELL ([id number])[facility] ([facility])[address] [place] [address] Hematocrit (Bld) [Volume fraction] 35.1 % Normal 35.0-47.0 [facility] Comment on above: Performed By: #### L [id number] ####Floor Assembler: KELLEY ARRINGTONTERRELL ([id number])[facility] (SBAB)[address] Hemoglobin (Bld) [Mass/Vol] 11.0 g/dL Low 11.7-16.0 [facility] Comment on above: Performed By: #### L [id number] ####Floor Assembler: KELLEY ARRINGTONTERRELL ([id number])[facility] (SB[facility])[address] IMMATURE GRANS % 0.4 % Normal 0.0-2.0 [facility] Comment on above: Performed By: #### L [id number] ####Floor Assembler: KELLEYFIOR DURAND ([id number])[facility] [place] (SBHLAB)[address] IMMATURE GRANS ABSOLUTE 0.1 10*3/uL High <0.1 [facility] Comment on above: Performed By: #### L [id number] ####Floor Assembler: KELLEY LADARIUS ([id number])[facility] ([facility])[address] Lymphocytes (Bld) [#/Vol] 1.9 10*3/uL Normal 1.0-4.3 [facility] Comment on above: Performed By: #### L [id number] ####Floor Assembler: KELLEY DURAND ([id number])[facility] (SBHL[facility])[address] [place] [address] Lymphocytes/100 WBC (Bld) 11.3 % Low 15.0-45.0 [facility] Comment on above: Performed By: #### L [id number] ####Floor Assembler: KELLEYFIOR DURAND ([id number])[facility] (SB[facility])[address] MCH (RBC) [Entitic mass] 23.9 pg Low 26.0-34.0 [facility] Comment on above: Performed By: #### L [id number] ####Floor Assembler: KELLEY ALFARONikolaiTERRELL ([id number])[facility] ([facility])[address] MCHC 31.3 % Normal 30.5-36.0 [facility] Comment on above: Performed By: #### L [id number] ####Floor Assembler: KELLEY ARRINGTONTERRELL ([id number])[facility] ([facility])[address] MCV (RBC) [Entitic vol] 76.1 fL Low 77.0-99.0 [facility] Comment on above: Performed By: #### L [id number] ####Floor Assembler: KELLEY ALFARONikolaiTERRELL ([id number])[facility] [place] (SB[facility])[address] Monocytes (Bld) [#/Vol] 1.3 10*3/uL High 0.0-0.9 [facility] Comment on above: Performed By: #### L [id number] ####Floor Assembler: KELLEY LADARIUS ([id number])[facility] [place] (SB[facility])[address] Monocytes/100 WBC (Bld) 7.6 % Normal 5.0-13.0 [facility] Comment on above: Performed By: #### L [id number] ####Floor Assembler: KELLEY ALFAROCORINA ([id number])[facility] [place] (SBHL[facility])[address] [place] [address] NEUTROPHILS ABSOLUTE 13.5 10*3/uL High 1.8-7.5 [facility] Comment on above: Performed By: #### L [id number] ####Floor Assembler: KELLEY LADARIUS ([id number])[facility] [place] ([facility])[address] Neutrophils/100 WBC (Bld) 80.5 % Normal 38.0-82.0 [facility] Comment on above: Performed By: #### L [id number] ####Floor Assembler: KELLEY DURAND ([id number])[facility] [place] ([facility])[address] NRBC 0.0 /100 WBCs Normal 0.0-2.0 [facility] Comment on above: Performed By: #### L [id number] ####Floor Assembler: KELLEY ARRINGTONTERRELL ([id number])[facility] [place] ([facility])[address] Platelet mean volume (Bld) [Entitic vol] 10.9 fL Normal 9.0-12.7 [facility] Comment on above: Performed By: #### L [id number] ####Floor Assembler: KELLEY DURAND ([id number])[facility] [place] (SBHLAB)[address] Platelets (Bld) [#/Vol] 170 10*3/uL Normal 140-440 [facility] Comment on above: Performed By: #### L [id number] ####Floor Assembler: KELLEY DURAND ([id number])[facility] (SBHL[facility])[address] RBC (Bld) [#/Vol] 4.61 10*6/uL Normal 3.80-5.20 [facility] Comment on above: Performed By: #### L [id number] ####Floor Assembler: KELLEY DURAND ([id number])[facility] [place] (SB[facility]AB)[address] WBC (Bld) [#/Vol] 16.8 10*3/uL High 3.6-10.7 [facility] Comment on above: Performed By: #### L [id number] ####Floor Assembler: KELLEY DURAND ([id number])[facility] (SB[facility])[address] COMPREHENSIVE METABOLIC PANE [place] 11-15-2024 Albumin [Mass/Vol] 2.3 g/dL Low 3.4-4.8 [facility] [facility] Comment on above: Performed By: #### L [id number] ####Floor Assembler: KELLEY DURAND ([id number])[facility] ([facility] ALP [Catalytic activity/Vol] 63 U/L Normal 40-150 [facility] Comment on above: Performed By: #### L [id number] ####Floor Assembler: KELLEY DURAND ([id number])[facility] ([facility])[address] ALT [Catalytic activity/Vol] 15 U/L Normal <30 [facility] Comment on above: Performed By: #### L [id number] ####Floor Assembler: KELLEY DURAND ([id number])[facility] [place] (SBHLAB)[address] Anion gap [Moles/Vol] 9 mmol/L Normal 3-13 [facility] Comment on above: Performed By: #### L [id number] ####Floor Assembler: KELLEY DURAND ([id number])[facility] [place] ([facility])[address] AST [Catalytic activity/Vol] 27 U/L Normal <34 [facility] Comment on above: Performed By: #### L [id number] ####Floor Assembler: KELLEY DURAND ([id number])[facility] [place] ([facility])[address] Bilirubin [Mass/Vol] 0.4 mg/dL Normal <1.2 [facility] Comment on above: Performed By: #### L [id number] ####Floor Assembler: KELLEY DURAND ([id number])[facility] [place] ([facility])[address] Calcium [Mass/Vol] 8.0 mg/dL Low 8.8-10.0 [facility] Comment on above: Performed By: #### L [id number] ####Floor Assembler: KELLEY DURAND ([id number])[facility] [place] ([facility])[address] Chloride [Moles/Vol] 104 mmol/L Normal 98-107 [facility] Comment on above: Performed By: #### L [id number] ####Floor Assembler: KELLEY DURAND ([id number])[facility] [place] ([facility])[address] CO2 [Moles/Vol] 21 mmol/L Low 23-31 [facility] Comment on above: Performed By: #### L [id number] ####Floor Assembler: KELLEY DURAND ([id number])[facility] [place] ([facility])[address] Creatinine [Mass/Vol] 1.23 mg/dL High 0.57-1.11 [facility] Comment on above: Performed By: #### L AB17 ####Floor Assembler: KELLEY DURAND ([id number])[facility] ([facility])[address] [place] [address] [place] GLOMERULAR FILTRATION RATE ML/MIN/1.73 SQ M.PREDICTED 43.4 mL/min/1.73m*2 Low >60.0 [facility] Comment on above: Result Comment: Calc ulation based on the Chronic Kidney Disease Epidemiology Collaboration (CKD-EPI) equation refit without adjustment for race Performed By: #### L [id number] ####Floor Assembler: KELLEY DURAND ([id number])[facility] ([facility])[address] Glucose [Mass/Vol] 83 mg/dL Normal 82-115 [facility] Comment on above: Performed By: #### L [id number] ####Floor Assembler: KELLEY DURAND ([id number])[facility] ([facility])[address] Potassium [Moles/Vol] 3.7 mmol/L Normal 3.5-5.1 [facility] Comment on above: Result Comment: [facility] potassium values may be up to 0.5 mmol/L lower than serum values. Performed By: #### L [id number] ####Floor Assembler: KELLEY DURAND ([id number])[facility] [place] [address] [place] Protein [Mass/Vol] 5.6 g/dL Low 6.4-8.3 [facility] Comment on above: Performed By: #### L [id number] ####Floor Assembler: KELLEY DURAND ([id number])[facility] Sodium [Moles/Vol] 134 mmol/L Low 136-145 [facility] Comment on above: Performed By: #### L [id number] ####Floor Assembler: KELLEY DURAND ([id number])[facility] ([facility])[address] Urea nitrogen [Mass/Vol] 27 mg/dL High 9-23 [facility] Comment on above: Performed By: #### L [id number] ####Floor Assembler: KELLEY ARRINGTONTERRELL ([id number])[facility] ([facility])[address] Comprehensive metabolic 1998 panelon 11-15-2024 Albumin [Mass/Vol] 2.3 g/dL Low 3.4 - 4.8 g/dL [facility] ALP [Catalytic activity/Vol] 63 U/L 40 - 150 U/L [facility] ALT [Catalytic activity/Vol] 15 U/L NINF - 30 U/L [facility] Anion gap [Moles/Vol] 9 mmol/L 3 - 13 mmol/L [facility] AST [Catalytic activity/Vol] 27 U/L NINF - 34 U/L [facility] Bilirubin [Mass/Vol] 0.4 mg/dL NINF - 1.2 mg/dL [facility] Calcium [Mass/Vol] 8 mg/dL Low 8.8 - 10. 0 mg/dL [facility] Chloride [Moles/Vol] 104 mmol/L 98 - 10 7 mmol/L [facility] CO2 [Moles/Vol] 21 mmol/L Low 23 - 31 mmol/L [facility] Creatinine [Mass/Vol] 1.23 mg/dL High 0.57 - 1.11 mg/dL [facility] GFR/1.73 sq M.predicted (S/P/Bld) [Vol rate/Area] 43.4 mL/min Low - PINF [facility] Comment on above: Calculation based on the Chronic Kidney Disease Epidemiology Collaboration (CKD-EPI) equation refit without adjustment for race Glucose [Mass/Vol] 83 mg/dL 82 - 115 mg/dL [facility] Interpretation and review of laboratory results Abnormal [facility] Potassium [Moles/Vol] 3.7 mmol/L 3.5 - 5.1 mmol/L [facility] Comment on above: Plasma potassium marialuisa ues may be up to 0.5 mmol/L lower than serum values. Protein [Mass/Vol] 5.6 g/dL Low 6.4 - 8.3 g/dL [facility] Sodium [Moles/Vol] 134 mmol/L Low 136 - 145 mmol/L [facility] Urea nitrogen [Mass/Vol] 27 mg/dL High 9 - 23 mg/dL [facility] GASTROINTESTINAL PCR PANELon 11-15-2024 GASTROINTESTINAL PCR PANEL CAMPYLOBACTER Reference Not Detected Not Detected PLESIOMONAS SHIGELLOIDES Reference Not Detected Not Detected SALMONELLA Reference Not Detected Not Detected VIBRIO SPECIES Reference Not Detected Not Detected VIBRIO CHOLERAE Reference Not Detected Not Detected YERSINIA ENTEROCOLITICA Reference Not Detected Not Detected ENTEROTOXIGENIC E COLI (ETEC) Reference Not Detected Not Detected SHIGA TOXIN-PRODUCING E COLI (STEC) Reference Not Detected Not Detected SHIGELLA/ENTEROINVASIV E E COLI (EIEC) Reference Not Detected Not Detected CRYPTOSPORIDIUM Reference Not Detected Not Detected CYCLOSPORA CAYETANENSIS Reference Not Detected Not Detected ENTAMOEBA HISTOLYTICA Reference Not Detected Not Detected GIARDIA LAMBLIA Reference Not Detected Not Detected ADENOVIRUS F 40/41 Reference Not Detected Not Detected ASTROVIRUS Reference Not Detected Not Detected NOROVIRUS GI/GII (A) Reference Detected Not Detected ROTAVIRUS A Reference Not Detected Not Detected SAPOVIRUS Reference Not Detected Not Detected ORDER COMMENTS: A positive Norovirus result on the Film Array GI panel should be interpreted in the context of the patient's history and clinical picture. If results are not consistent, result should be confirmed with a Norovirus specific assay. Methodology: Multiplex PCR [facility] Comment on above: Performed By: #### L [id number], [id number] ####Floor Assembler: ALESSANDRO HINOJOSA ([id number])[address] LEGIONELLA AND STREPTOCOCCUS URINE ANTIGENon 11-15-2024 LEGIONELLA AND STREPTOCOCCUS URINE ANTIGEN LEGIONELLA PNEUMOPHILA URINE ANTIGEN Reference Not Detected Not Detected STREPTOCOCCUS PNEUMONIAE URINE ANTIGEN (A) Reference Detected Not Detected ORDER COMMENTS: (A) Methodology: Lateral flow enzyme immunoassay This assay is approved for detection of antigens to Streptococcus pneumoniae and Legionella pneumophila serogroup 1; however, other L. pneumophila serogroups may also be detected. [facility] Comment on above: Performed By: #### L [id number] #### Floor Assembler: KELLEY DURAND ([id number]) [facility] (SBHLAB) [address] Laboratory - Chemistry and C hemistry - challengeon 11-15-2024 Glucose [Mass/Vol] 149 mg/dL High 70 - 100 mg/dL [facility] Glucose [Mass/Vol] 102 mg/dL High 70 - 100 mg/dL [facility] Glucose [Mass/Vol] 104 mg/dL High 70 - 100 mg/dL [facility] No Panel Informationon 11-15 Interpretation and review of laboratory results Abnormal [facility]formed by: [facility], [address] [facility] [address] CLIA ID: [id number] [facility] Interpretation and review of laboratory results Abnormal [facility] Performed by: [facility], [address] [facility] [address] CLIA ID: [id number] [facility] Interpretation and review of laboratory results Abnormal [facility] Performed by: [facility], [address] [facility] [address] CLIA ID: [id number] [facility] No Panel InformationOrdered By: Paty Ramirez on 11-15-2024 Interpretation and review of laboratory results Abnormal [facility] Legionella pneumophila Ag Not detected Not Detected [facility] Streptococcus pneumoniae Ag Detected Abnormal Not Detected [facility] Methodology: Lateral flow enzyme immunoassay This assay is approved for detection of antigens to Streptococcus pneumoniae and Legionella pneumophila serogroup 1; however, other L. pneumophila serogroups may also be detected. [facility] Progress Noteon 11-15-2024 Progress Note OCCUPATIONAL THERAPY [facility] Treatment Note Name/MRN: Margarita Betancourt ([id number]) Date of : 1940 Age: 84 y.o. Room/Bed: B2-248/B2248 B Visit #: 1 out of 5 visits Discharge Recommendation: [facility] Facility Assessment Pt tolerated session poor, severely limited by fatigue this date. Pt completed bed mobility with Max A, tolerated sitting EOB for ~5-7 mins with Min-Mod A before returning to supine. Pt required total A to complete bed level pericare. Pt is progressing with POC but is still below baseline and is a high fall risk. Pt would benefit from continued OT to improve activity tolerance, balance, and strength needed for improved occupational performance. Pt is recommended for SNF at D/C Subjective Pt supine in bed, pleasant and agreeable. Per RN, pt okay to see Pt goes by Pallavi Pain: Pt denies any current pain. Medical Precautions: No active isolations Proper PPE donned/doffed in accordance with facility standards. Fall Risk: [place] Fall Risk Score: 25 (High Risk) Precautions/Restrictio ns: N/A Family/Caregiver Present: none Objective ADLs Toileting: Dependent Pt incontinent BM during bed mobility. Pt required total A to complete supine/side lying pericare. Pt rolled L<>R to ease completion of ADL Bed Mobility Supine to sit: Max Assist Sit to supine: Max Assist Rolling to right: Mod Assist Rolling to left: Max Assist Scooting: Max Assist HOB Elevated Use of bed rail(s) Pt completed supine to/from sit with HOB elevated, use of bed rails, and Max A for BLE and trunk management. Pt required increased time and assist to complete. Pt required Max A to scoot to EOB and to roll L and Mod A to roll to the R. Pt denied dizziness. Transfers/Mobility Sit to stand: unable to attempt. Pt required Min-Mod A for sitting balance for ~5-7 mins before requesting to lay down due to fatigue Sitting balance: Min Assist, Mod Assist Pt sat EOB for ~5-7 mins with varying Min-Mod A for sitting balance. Pt demo heavy retrolean, unable to correct without physical assist despite VC Device(s) used: None Cognition - Safety judgement: decreased awareness of need for assistance and decreased awareness of need for safety - Problem solving: assistance required to implement solutions, assistance required to identify errors made, assistance required to correct errors made, and decreased awareness of errors - Insights: decreased awareness of deficits - Initiation: requires cues for some - Sequencing: requires cues for some Exceptions, repeatedly saying I need to lay down when laying in bed. Plan Continue acute OT per plan of care. Safety/Education Safety Safety Devices in place: All fall risk precautions in place, call light within reach, left in bed, patient at risk for falls, nurse notified, and no alarms engaged upon entry Restraints: No Education Education Given To: patient Education Provided: OT Role, Plan of Care, Precautions, ADL Adaptive Strategies, Fall Prevention Education, and Discharge Recommendations Education Method: Verbal, Demonstration, and Teach Back Barriers to Learning: Cognition Education Outcome: Verbalized Understanding, Demonstrated Understanding, and Continued Education Needed AM-PAC AM-PAC Inpatient Daily Activity Raw Score: 18 ADL Inpatient CMS G-Code Modifier: CK Goals Patient Stated Goal: none stated Encounter Problems Encounter Problems (Active) Balance Patient will maintain dynamic standing balance for 3 minutes with supervision in order to demonstrate decreased risk of falling. (Not Addressed) Start: 11/13/24 Expected End: 11/18/24 Dressings Lower Extremities Patient will complete LB ADLs with Mod I (Not Addressed) Start: 11/13/24 Expected End: 11/18/24 Mobility pt will perform functional mobility and transfers with LRAD and supervision (Not Addressed) Start: 11/13/24 Expected End: 11/18/24 Toileting Patient will complete toileting tasks at standard toilet with modified independence. (Slowly Progressing) Start: 11/13/24 Expected End: 11/18/24 Transfers Patient will perform bed mobility with modified independence in order to improve independence and prepare for out of bed mobility. (Slowly Progressing) Start: 11/13/24 Expected End: 11/18/24 Therapy Time Individual Co-treatment Time In 1359 Time Out 1418 Minutes 19 Timed Code Treatment Minutes: 19 Minutes (1 ther act) EMILY Selby [facility] RESPIRATORY PATHOGENS PANEL BY PCR 11-15-2024 RESPIRATORY PATHOGENS PANEL BY PCR SARS-COV-2 Reference Not Detected Not Detected ADENOVIRUS Reference Not Detected Not Detected CORONAVIRUS HKU1 Reference Not Detected Not Detected CORONAVIRUS NL63 Reference Not Detected Not Detected CORONAVIRUS 229E Reference Not Detected Not Detected CORONAVIRUS OC43 Reference Not Detected Not Detected HUMAN METAPNEUMOVIRUS Reference Not Detected Not Detected HUMAN RHINOVIRUS/ENTEROVIRUS Reference Not Detected Not Detected INFLUENZA A Reference Not Detected Not Detected INFLUENZA B Reference Not Detected Not Detected PARAINFLUENZA 1 Reference Not Detected Not Detected PARAINFLUENZA 2 Reference Not Detected Not Detected PARAINFLUENZA 3 Reference Not Detected Not Detected PARAINFLUENZA 4 Reference Not Detected Not Detected RESPIRATORY SYNCYTIAL VIRUS Reference Not Detected Not Detected BORDETELLA PERTUSSIS Reference Not Detected Not Detected BORDETELLA PARAPERTUSSIS Reference Not Detected Not Detected CHLAMYDIA PNEUMONIAE Reference Not Detected Not Detected MYCOPLASMA PNEUMONIAE Reference Not Detected Not Detected ORDER COMMENTS: Methodology: Multiplex PCR [facility] Comment on above: Performed By: #### L [id number] #### Floor Assembler: KELLEY DURAND ([id number]) [facility] [address] Respiratory pathogens DNA an d RNA panel CRISTOFER+non-probe (Nph)on 11-15-2024 Adenovirus Not detected Not Detected [facility] B. pertussis DNA CRISTOFER+probe Ql (Unsp spec) Not detected Not Detected [facility] Bordetella parapertussis Not detected Not Detected [facility] Chlamydia pneumoniae Not detected Not Detected [facility] Coronavirus 229E Not detected Not Detected [facility] Coronavirus HKU1 Not detected Not Detected [facility] Coronavirus NL63 Not detected Not Detected [facility] Coronavirus OC43 Not detected Not Detected [facility] FLUAV RNA CRISTOFER+non-probe Ql (Nph) Not detected Not Detected [facility] FLUBV RNA CRISTOFER+non-probe Ql (Nph) Not detected Not Detected [facility] Human Metapneumovirus Not detected Not Detected [facility] Human Rhinovirus/Enterovirus Not detected Not Detected [facility] Interpretation and review of laboratory results Normal [facility] Mycoplasma pneumoniae Not detected Not Detected [facility] Parainfluenza 1 Not detected Not Detected [facility] Parainfluenza 2 Not detected Not Detected [facility] Parainfluenza 3 Not detected Not Detected [facility] Parainfluenza 4 Not detected Not Detected [facility] Respiratory Syncytial Virus Not detected Not Detected [facility] SARS-CoV-2 (COVID-19) RNA CRISTOFER+non-probe Ql (Nph) Not detected Not Detected [facility] Methodology: Multipl ex PCR [facility] XR Chest 2 Viewson 5 Chronic appearing interstitial changes. No focal consolidation is identified within the lungs. Report Dictated on Electronically Signed By: Dmitriy Haynes MD Electronically Signed Date/Time: 11/15/2024 10:58 AM [facility] EMERGENCY [facility]PARTMENT RADIOLOGY SYSTEM Patient Name: MARGARITA BETANCOURT : 1940 Exam Date/Time: 11/15/2024 10:41 Procedure: XR CHEST 2 VIEWS Ordering Provider: HAYWOOD CANDICE Reason For Exam: worsening cough,. CHEST X-RAY PA/LATERAL CLINICAL INDICATION: Cough Frontal and lateral plain films of the chest were obtained. COMPARISON: 03/25/2020 FINDINGS: The cardiac silhouette is within normal limits. Coarsening of the interstitial lung markings is noted, likely chronic. No focal consolidation is seen within the lungs. No pleural effusion or pneumothorax is identified. There are degenerative changes of the thoracic spine. [facility] Dmitriy Haynes MD - 11/15/2024 [facility] Name: [facility]AR[facility] 1940 [id number] Exam Date/Time: 11/15/2024 10:41 Procedure: XR CHEST 2 VIEWS Ordering Provider: HAYWOOD CANDICE Reason For Exam: worsening cough,. CHEST X-RAY PA/LATERAL CLINICAL INDICATION: Cough Frontal and lateral plain films of the chest were obtained. COMPARISON: 03/25/2020 FINDINGS: The cardiac silhouette is within normal limits. Coarsening of the interstitial lung markings is noted, likely chronic. No focal consolidation is seen within the lungs. No pleural effusion or pneumothorax is identified. There are degenerative changes of the thoracic spine. IMPRESSION: Chronic appearing interstitial changes. No focal consolidation is identified within the lungs. Report Dictated on Electronically Signed By: Dmitriy Haynes MD Electronically Signed Date/Time: 11/15/2024 10:58 AM EDT [facility] Radiology Study observation (narrative) [facility] XR Chest 2 ViewsOrdered By: Dmitriy Haynes on 11-15-2024 [facility] 30on 11-14-2024 30 Problem: Knowledge Deficit Goal: Patient/family/caregiv er demonstrates understanding of disease process, treatment plan, medications, and discharge instructions 11/14/2024 045 by Kayley English RN Outcome: Progressing 11/14/2024 045 by Kayley English RN Outcome: Progressing Problem: Potential for Compromised Skin Integrity Goal: Skin Integrity is Maintained or Improved 11/14/2024 045 by Kayley English RN Outcome: Progressing 11/14/2024 045 by Kayley English RN Outcome: Progressing Goal: Nutritional status is improving 11/14/2024451 by Kayley English RN Outcome: Progressing 11/14/2024449 by Kayley English RN Outcome: Progressing Problem: Urinary Incontinence Goal: Perineal skin integrity is maintained or improved 11/14/2024451 by Kayley English RN Outcome: Progressing 11/14/2024449 by Kayley English RN Outcome: Progressing Problem: Potential for Falls Goal: I will remain free of falls 11/14/2024451 by Kayley English RN Outcome: Progressing 11/14/2024449 by Kayley English RN Outcome: Progressing Problem: Discharge Barriers Goal: My discharge needs are met 11/14/2024451 by Kayley English RN Outcome: Progressing 11/14/2024449 by Kayley English RN Outcome: Progressing Normal [facility] 30 Problem: Knowledge Deficit Goal: Patient/family/caregiv er demonstrates understanding of disease process, treatment plan, medications, and discharge instructions Outcome: Progressing Problem: Potential for Compromised Skin Integrity Goal: Skin Integrity is Maintained or Improved Outcome: Progressing Goal: Nutritional status is improving Outcome: Progressing Problem: Urinary Incontinence Goal: Perineal skin integrity is maintained or improved Outcome: Progressing Problem: Potential for Falls Goal: I will remain free of falls Outcome: Progressing Problem: Discharge Barriers Goal: My discharge needs are met Outcome: Progressing Normal [facility] CBC W Auto Differential pane l (Bld)Ordered By: Phylicia Blanco on 11-14-2024 Basophils (Bld) [#/Vol] 0 10*3/uL 0.0 - 0.2 10*3/uL [facility] Basophils/100 WBC (Bld) 0.2 % 0.0 - 2.0 % [facility] Eosinophils (Bld) [#/Vol] 0.1 10*3/uL 0.0 - 0.5 10*3/uL [facility] Eosinophils/100 WBC (Bld) 1.6 % 0.0 - 6.0 % [facility] Erythrocyte distribution width (RBC) [Ratio] 19.9 % High 11.5 - 15.0 % [facility] Hematocrit (Bld) [Volume fraction] 35.8 % 35.0 - 47.0 % [facility] Hemoglobin (Bld) [Mass/Vol] 11 g/dL Low 11.7 - 16.0 g/dL [facility] Immature granulocytes (Bld) [#/Vol] 0 10*3/uL NINF - 0.1 10*3/uL [facility] Immature granulocytes/100 WBC (Bld) 0.5 % 0.0 - 2.0 % [facility] Interpretation and review of laboratory results Abnormal [facility] IPF 5 [facility] Lymphocytes (Bld) [#/Vol] 1.8 10*3/uL 1.0 - 4.3 10*3/uL [facility] Lymphocytes/100 WBC (Bld) 21 % 15.0 - 45.0 % [facility] MCH (RBC) [Entitic mass] 23.8 pg Low 26.0 - 34.0 pg [facility] MCHC (RBC) [Mass/Vol] 30.7 % 30.5 - 36.0 % [facility] MCV (RBC) [Entitic vol] 77.3 fL 77.0 - 99.0 fL [facility] Monocytes (Bld) [#/Vol] 0.8 10*3/uL 0.0 - 0.9 10*3/uL [facility] Monocytes/100 WBC (Bld) 9.7 % 5.0 - 13.0 % [facility] Neutrophils (Bld) [#/Vol] 5.8 10*3/uL 1.8 - 7.5 10*3/uL [facility] Neutrophils/100 WBC (Bld) 67 % 38.0 - 82.0 % [facility] Nucleated RBC/100 WBC (Bld) [Ratio] 0 % [facility] Platelet mean volume (Bld) [Entitic vol] 11.5 fL 9.0 - 12.7 fL [facility] [facility] Platelets (Bld) [#/Vol] 151 10*3/uL 140 - 440 10*3/uL [facility] RBC (Bld) [#/Vol] 4.63 10*6/uL 3.80 - 5.2 0 10*6/uL [facility] WBC (Bld) [#/Vol] 8.6 10*3/uL 3.6 - 10.7 10*3/uL [facility] CBC WITH AUTO DIFFERENTIALon 11-14-2024 Basophils (Bld) [#/Vol] 0.0 10*3/uL Normal 0.0-0.2 [facility] Comment on above: Performed By: #### L [id number] ####Floor Assembler: KELLEY ALFARONikolaiTERRELL ([id number])[facility] [place] (SBHLAB)[address] Basophils/100 WBC (Bld) 0.2 % Normal 0.0-2.0 [facility] Comment on above: Performed By: #### L [id number] ####Floor Assembler: KELLEY LADARIUS ([id number])[facility] [place] (SBHLAB)[address] Eosinophils (Bld) [#/Vol] 0.1 10*3/uL Normal 0.0-0.5 [facility] Comment on above: Performed By: #### L [id number] ####Floor Assembler: KELLEY ALFAROCORINA ([id number])[facility] [place] (SBHLAB)[address] Eosinophils/100 WBC (Bld) 1.6 % Normal 0.0-6.0 [facility] Comment on above: Performed By: #### L [id number] ####Floor Assembler: KELLEY ALFAROCORINA ([id number])[facility] [place] (SBHLAB)[address] Erythrocyte distribution width (RBC) [Ratio] 19.9 % High 11.5-15.0 [facility] Comment on above: Performed By: #### L [id number] ####Floor Assembler: KELLEY ALFAROBRENNATERRELL ([id number])[facility] [place] ([facility])[address] Hematocrit (Bld) [Volume fraction] 35.8 % Normal 35.0-47.0 [facility] Comment on above: Performed By: #### L [id number] ####Floor Assembler: KELLEY ARRINGTONTERRELL ([id number])[facility] [place] ([facility])[address] Hemoglobin (Bld) [Mass/Vol] 11.0 g/dL Low 11.7-16.0 [facility] Comment on above: Performed By: #### L [id number] ####Floor Assembler: KELLEY DURAND ([id number])[facility] [place] ([facility])[address] IMMATURE GRANS % 0.5 % Normal 0.0-2.0 [facility] Comment on above: Performed By: #### L [id number] ####Floor Assembler: KELLEY DURAND ([id number])[facility] (SB[facility])[address] IMMATURE GRANS ABSOLUTE 0.0 10*3/uL Normal <0.1 [facility] Comment on above: Performed By: #### L [id number] ####Floor Assembler: KELLEY DURAND ([id number])[facility] ([facility])[address] IPF 5 Normal [facility] Comment on above: Performed By: #### L [id number] ####Floor Assembler: KELLEY DURAND ([phone])[facility] Lymphocytes (Bld) [#/Vol] 1.8 10*3/uL Normal 1.0-4.3 [facility] Comment on above: Performed By: #### L [id number] ####Floor Assembler: KELLEY DURAND ([id number])[facility] (SB[facility])[address] Lymphocytes/100 WBC (Bld) 21.0 % Normal 15.0-45.0 [facility] Comment on above: Performed By: #### L [id number] ####Floor Assembler: KELLEY DURAND ([phone])[facility] (SB[facility]AB)[address] MCH (RBC) [Entitic mass] 23.8 pg Low 26.0-34.0 [facility] Comment on above: Performed By: #### L [id number] ####Floor Assembler: KELLEY DURAND ([id number])[facility] (SBHLAB)[address] [place] [address] MCHC 30.7 % Normal 30.5-36.0 [facility] Comment on above: Performed By: #### L [id number] ####Floor Assembler: KELLEY ARRINGTONTERRELL ([phone])[facility] [place] ([facility])[address] MCV (RBC) [Entitic vol] 77.3 fL Normal 77.0-99.0 [facility] Comment on above: Performed By: #### L [id number] ####Floor Assembler: KELLEY ALFAROCORINA ([id number])[facility] [place] (SBHLAB)[address] [place] [address] Monocytes (Bld) [#/Vol] 0.8 10*3/uL Normal 0.0-0.9 [facility] Comment on above: Performed By: #### L [id number] ####Floor Assembler: KELLEY DURAND ([id number])[facility] [place] ([facility])[address] Monocytes/100 WBC (Bld) 9.7 % Normal 5.0-13.0 [facility] Comment on above: Performed By: #### L [id number] ####Floor Assembler: KELLEY DURAND ([id number])[facility] [place] (SB[facility])[address] [place] [address] NEUTROPHILS ABSOLUTE 5.8 10*3/uL Normal 1.8-7.5 [facility] Comment on above: Performed By: #### L [id number] ####Floor Assembler: KELLEY DURAND ([id number])[facility] [place] (SB[facility])[address] [place] [address] Neutrophils/100 WBC (Bld) 67.0 % Normal 38.0-82.0 [facility] Comment on above: Performed By: #### L [id number] ####Floor Assembler: KELLEY LADARIUS ([id number])[facility] [place] ([facility])[address] NRBC 0.0 /100 WBCs Normal 0.0-2.0 [facility] Comment on above: Performed By: #### L [id number] ####Floor Assembler: KELLEY LADARIUS ([id number])[facility] (SB[facility])[address] Platelet mean volume (Bld) [Entitic vol] 11.5 fL Normal 9.0-12.7 [facility] Comment on above: Performed By: #### L [id number] ####Floor Assembler: KELLEY LADARIUS ([id number])[facility] (SBHLAB)[address] Platelets (Bld) [#/Vol] 151 10*3/uL Normal 140-440 [facility] Comment on above: Performed By: #### L [id number] ####Floor Assembler: KELLEY ALFAROCORINA ([phone])[facility] (SB[facility])[address] RBC (Bld) [#/Vol] 4.63 10*6/uL Normal 3.80-5.20 [facility] Comment on above: Performed By: #### L [id number] ####Floor Assembler: KELLEY ARRINGTONTERRELL ([id number])[facility] (SB[facility])[address] WBC (Bld) [#/Vol] 8.6 10*3/uL Normal 3.6-10.7 [facility] Comment on above: Performed By: #### L [id number] ####Floor Assembler: KELLEY ARRINGTONTERRELL ([id number])[facility] (SBHLAB)[address] COMPREHENSIVE METABOLIC PANE [place] 11-14-2024 Albumin [Mass/Vol] 2.4 g/dL Low 3.4-4.8 [facility] Comment on above: Performed By: #### L [id number] ####Floor Assembler: KELLEY DURAND ([id number])[facility] [place] ([facility])[address] ALP [Catalytic activity/Vol] 68 U/L Normal 40-150 [facility] Comment on above: Performed By: #### L [id number] ####Floor Assembler: KELLEY DURAND ([phone])[facility] [place] ([facility])[address] ALT [Catalytic activity/Vol] 20 U/L Normal <30 [facility] Comment on above: Performed By: #### L [id number] ####Floor Assembler: KELLEY DURAND ([phone])[facility] [place] [facility])[address] Anion gap [Moles/Vol] 9 mmol/L Normal 3-13 [facility] Comment on above: Performed By: #### L [id number] ####Floor Assembler: KELLEY DURAND ([id number])[facility] (HLAB)[address] AST [Catalytic activity/Vol] 32 U/L Normal <34 [facility] Comment on above: Performed By: #### L [id number] ####Floor Assembler: KELLEY DURAND ([id number])[facility] [place] (SB[facility])[address] Bilirubin [Mass/Vol] 0.3 mg/dL Normal <1.2 [facility] Comment on above: Performed By: #### L [id number] ####Floor Assembler: KELLEY DURAND ([phone])[facility] (HLAB)[address] Calcium [Mass/Vol] 7.8 mg/dL Low 8.8-10.0 [facility] Comment on above: Performed By: #### L [id number] ####Floor Assembler: KELLEY DURAND ([id number])[facility] BAIRDN (SBHLAB)[address] Chloride [Moles/Vol] 102 mmol/L Normal 98-107 [facility] Comment on above: Performed By: #### L [id number] ####Floor Assembler: KELLEY ALFAROCORINA ([id number])[facility] (SBHLAB)[address] CO2 [Moles/Vol] 24 mmol/L Normal 23-31 [facility] Comment on above: Performed By: #### L [id number] ####Floor Assembler: KELLEY ALFAROCORINA ([id number])[facility] ([facility])[address] Creatinine [Mass/Vol] 1.08 mg/dL Normal 0.57-1.11 [facility] Comment on above: Performed By: #### L [id number] ####Floor Assembler: KELLEY ARRINGTONTERRELL ([id number])[facility] [place] ([facility])[address] GLOMERULAR FILTRATION RATE ML/MIN/1.73 SQ M.PREDICTED 50.8 mL/min/1.73m*2 Low >60.0 [facility] Comment on above: Result Comment: Calc ulation based on the Chronic Kidney Disease Epidemiology Collaboration (CKD-EPI) equation refit without adjustment for race Performed By: #### L [id number] ####Floor Assembler: KELLEY ARRINGTONTERRELL ([phone])[facility])[address] Glucose [Mass/Vol] 221 mg/dL High 82-115 [facility] Comment on above: Performed By: #### L [id number] ####Floor Assembler: KELLEY DURAND ([id number])[facility] ([facility])[address] Potassium [Moles/Vol] 4.0 mmol/L Normal 3.5-5.1 [facility] Comment on above: Result Comment: Plas ma potassium values may be up to 0.5 mmol/L lower than serum values. Performed By: #### L [id number] ####Floor Assembler: KELLEY ARRINGTONTERRELL ([phone])[facility] (SBHLAB)[address] [place] [address] Protein [Mass/Vol] 5.6 g/dL Low 6.4-8.3 [facility] Comment on above: Performed By: #### L [id number] ####Floor Assembler: KELLEY ALFAROCORINA ([phone])[facility] ([facility])[address] Sodium [Moles/Vol] 135 mmol/L Low 136-145 [facility] Comment on above: Performed By: #### L [id number] ####Floor Assembler: KELLEY ALFAROCORINA ([id number])[facility] (SBHLAB)[address] [place] [address] Urea nitrogen [Mass/Vol] 22 mg/dL Normal 9-23 [facility] Comment on above: Performed By: #### L [id number] ####Floor Assembler: KELLEY LADARIUS ([id number])[facility] (SBHLAB)[address] [place] [address] Comprehensive metabolic 1998 panelon 11-14-2024 Albumin [Mass/Vol] 2.4 g/dL Low 3.4 - 4.8 g/dL [facility] ALP [Catalytic activity/Vol] 68 U/L 40 - 150 U/L [facility] ALT [Catalytic activity/Vol] 20 U/L NINF - 30 U/L [facility] Anion gap [Moles/Vol] 9 mmol/L 3 - 13 mmol/L [facility] AST [Catalytic activity/Vol] 32 U/L NINF - 34 U/L [facility] Bilirubin [Mass/Vol] 0.3 mg/dL NINF - 1.2 mg/dL [facility] Calcium [Mass/Vol] 7.8 mg/dL Low 8.8 - 10. 0 mg/dL [facility] Chloride [Moles/Vol] 102 mmol/L 98 - 10 7 mmol/L [facility] CO2 [Moles/Vol] 24 mmol/L 23 - 31 mmol/L [facility] Creatinine [Mass/Vol] 1.08 mg/dL 0.57 - 1.11 mg/dL [facility] GFR/1.73 sq M.predicted (S/P/Bld) [Vol rate/Area] 50.8 mL/min Low - PINF [facility] Comment on above: Calculation based on the Chronic Kidney Disease Epidemiology Collaboration (CKD-EPI) equation refit without adjustment for race Glucose [Mass/Vol] 221 mg/dL High 82 - 115 mg/dL [facility] Interpretation and review of laboratory results Abnormal [facility] Potassium [Moles/Vol] 4 mmol/L 3.5 - 5.1 mmol/L [facility] Comment on above: Plasma potassium marialuisa ues may be up to 0.5 mmol/L lower than serum values. Protein [Mass/Vol] 5.6 g/dL Low 6.4 - 8.3 g/dL [facility] Sodium [Moles/Vol] 135 mmol/L Low 136 - 145 mmol/L [facility] Urea nitrogen [Mass/Vol] 22 mg/dL 9 - 23 mg/dL [facility] Laboratory - Chemistry and C hemistry - challengeon 11-14-2024 Glucose [Mass/Vol] 139 mg/dL High 70 - 100 mg/dL [facility] Glucose [Mass/Vol] 170 mg/dL High 70 - 100 mg/dL [facility] Glucose [Mass/Vol] 283 mg/dL High 70 - 100 mg/dL [facility] Glucose [Mass/Vol] 246 mg/dL High 70 - 100 mg/dL [facility] Lower GI hemoglobin spec 1 I A Ql (Stl)on 11-14-2024 Fecal occult blood Negative Negative [facility] Interpretation and review of laboratory results Normal [facility] Methodology: Immunoassay [facility] No Panel Informationon 11-14 Interpretation and review of laboratory results Abnormal [facility] Performed by: [facility], [address] [place] [id number] CLIA ID: [id number] [facility] Interpretation and review of laboratory results Abnormal [facility] Performed by: [facility], [address] [facility] [address] CLIA ID: [id number] [facility] Interpretation and review of laboratory results Abnormal [facility] Performed by: [facility], [address] [facility] [address] CLIA ID: [id number] [facility] Interpretation and review of laboratory results Abnormal [facility] Performed by: [facility], [address] [facility] [address] CLIA ID: [id number] [facility] OCCULT BLOOD, STOOLon 2024 OCCULT BLOOD, STOOL FECAL OCCULT, STOOL Reference Negative Negative ORDER COMMENTS: Methodology: Immunoassay Normal [facility] Comment on above: Performed By: #### L [id number] #### Floor Assembler: KELLEY DURAND ([id number]) [facility] (SB[facility]) [address] 30on 11-13-2024 30 Problem: Knowledge Deficit Goal: Patient/family/caregiv er demonstrates understanding of disease process, treatment plan, medications, and discharge instructions Outcome: Progressing Problem: Potential for Compromised Skin Integrity Goal: Skin Integrity is Maintained or Improved Outcome: Progressing Goal: Nutritional status is improving Outcome: Progressing Problem: Urinary Incontinence Goal: Perineal skin integrity is maintained or improved Outcome: Progressing Problem: Potential for Falls Goal: I will remain free of falls Outcome: Progressing Problem: Discharge Barriers Goal: My discharge needs are met Outcome: Progressing Normal [facility] 30 Problem: Knowledge Deficit Goal: Patient/family/caregiv er demonstrates understanding of disease process, treatment plan, medications, and discharge instructions Outcome: Progressing Problem: Potential for Compromised Skin Integrity Goal: Skin Integrity is Maintained or Improved Outcome: Progressing Goal: Nutritional status is improving Outcome: Progressing Problem: Urinary Incontinence Goal: Perineal skin integrity is maintained or improved Outcome: Progressing Problem: Potential for Falls Goal: I will remain free of falls Outcome: Progressing Problem: Discharge Barriers Goal: My discharge needs are met Outcome: Progressing Normal [facility] CBC W Auto Differential pane l (Bld)Ordered By: Amanda Daugherty on 11-13-2024 Basophils (Bld) [#/Vol] 0 10*3/uL 0.0 - 0.2 10*3/uL [facility] Basophils/100 WBC (Bld) 0.3 % 0.0 - 2.0 % [facility] Eosinophils (Bld) [#/Vol] 0.4 10*3/uL 0.0 - 0.5 10*3/uL [facility] Eosinophils/100 WBC (Bld) 5.6 % 0.0 - 6.0 % [facility] [employer] Erythrocyte distribution width (RBC) [Ratio] 20.1 % High 11.5 - 15.0 % [facility] Hematocrit (Bld) [Volume fraction] 34.4 % Low 35.0 - 47.0 % [facility] Hemoglobin (Bld) [Mass/Vol] 10.4 g/dL Low 11.7 - 16.0 g/dL [facility] Immature granulocytes (Bld) [#/Vol] 0 10*3/uL NINF - 0.1 10*3/uL [facility] [employer] Immature granulocytes/100 WBC (Bld) 0.6 % 0.0 - 2.0 % [facility] Interpretation and review of laboratory results Abnormal [facility] IPF 5 [facility] Lymphocytes (Bld) [#/Vol] 1.7 10*3/uL 1.0 - 4.3 10*3/uL [facility] Lymphocytes/100 WBC (Bld) 24.7 % 15.0 - 45.0 % [facility] MCH (RBC) [Entitic mass] 23.7 pg Low 26.0 - 34.0 pg [facility] MCHC (RBC) [Mass/Vol] 30.2 % Low 30.5 - 36.0 % [facility] MCV (RBC) [Entitic vol] 78.4 fL 77.0 - 99.0 fL [facility] [employer] Monocytes (Bld) [#/Vol] 0.8 10*3/uL 0.0 - 0.9 10*3/uL [facility] Monocytes/100 WBC (Bld) 11.6 % 5.0 - 13.0 % [facility] Neutrophils (Bld) [#/Vol] 4 10*3/uL 1.8 - 7.5 10*3/uL [facility] [employer] Neutrophils/100 WBC (Bld) 57.2 % 38.0 - 82.0 % [facility] [employer] Nucleated RBC/100 WBC (Bld) [Ratio] 0 % [facility] [employer] Platelet mean volume (Bld) [Entitic vol] 11.3 fL 9.0 - 12.7 fL [facility] [employer] Platelets (Bld) [#/Vol] 154 10*3/uL 140 - 440 10*3/uL [facility] RBC (Bld) [#/Vol] 4.39 10*6/uL 3.80 - 5.2 0 10*6/uL [facility] WBC (Bld) [#/Vol] 6.9 10*3/uL 3.6 - 10.7 10*3/uL [facility] CBC WITH AUTO DIFFERENTIALon 11-13-2024 Basophils (Bld) [#/Vol] 0.0 10*3/uL Normal 0.0-0.2 [facility] Comment on above: Performed By: #### L [id number] ####Floor Assembler: KELLEY DURAND ([id number])[facility] [place] ([facility])[address] Basophils/100 WBC (Bld) 0.3 % Normal 0.0-2.0 [facility] Comment on above: Performed By: #### L [id number] ####Floor Assembler: KELLEY DURAND ([id number])[facility] [place] (SB[facility])[address] Eosinophils (Bld) [#/Vol] 0.4 10*3/uL Normal 0.0-0.5 [facility] Comment on above: Performed By: #### L [id number] ####Floor Assembler: KELLEY DURAND ([id number])[facility] [place] (SB[facility])[address] [place] [address] Eosinophils/100 WBC (Bld) 5.6 % Normal 0.0-6.0 [facility] Comment on above: Performed By: #### L [id number] ####Floor Assembler: KELLEY DURAND ([phone])[facility] [place] ([facility])[address] Erythrocyte distribution width (RBC) [Ratio] 20.1 % High 11.5-15.0 [facility] Comment on above: Performed By: #### L [id number] ####Floor Assembler: KELLEY DURAND ([id number])[facility] [place] ([facility])[address] Hematocrit (Bld) [Volume fraction] 34.4 % Low 35.0-47.0 [facility] Comment on above: Performed By: #### L [id number] ####Floor Assembler: KELLEY DURAND ([id number])[facility] [place] ([facility])[address] Hemoglobin (Bld) [Mass/Vol] 10.4 g/dL Low 11.7-16.0 [facility] Comment on above: Performed By: #### L [id number] ####Floor Assembler: KELLEY DURAND ([phone])[facility] (SB[facility])[address] IMMATURE GRANS % 0.6 % Normal 0.0-2.0 [facility] Comment on above: Performed By: #### L [id number] ####Floor Assembler: KELLEY DURAND ([phone])[facility] (SB[facility])[address] IMMATURE GRANS ABSOLUTE 0.0 10*3/uL Normal <0.1 [facility] Comment on above: Performed By: #### L [id number] ####Floor Assembler: KELLEY DURAND ([id number])[facility] ([facility])[address] IPF 5 Normal [facility] Comment on above: Performed By: #### L [id number] ####Floor Assembler: KELLEY DURAND ([id number])[facility] [place] ([facility])[address] Lymphocytes (Bld) [#/Vol] 1.7 10*3/uL Normal 1.0-4.3 [facility] Comment on above: Performed By: #### L [id number] ####Floor Assembler: KELLEY DURAND ([id number])[facility] ([facility])[address] Lymphocytes/100 WBC (Bld) 24.7 % Normal 15.0-45.0 [facility] Comment on above: Performed By: #### L [id number] ####Floor Assembler: KELLEY DURAND ([id number])[facility] [place] ([facility])[address] MCH (RBC) [Entitic mass] 23.7 pg Low 26.0-34.0 [facility] Comment on above: Performed By: #### L [id number] ####Floor Assembler: KELLEY DURAND ([id number])[facility] [place] ([facility])[address] MCHC 30.2 % Low 30.5-36.0 [facility] Comment on above: Performed By: #### L [id number] ####Floor Assembler: KELLEY DURAND ([id number])[facility] [place] ([facility])[address] MCV (RBC) [Entitic vol] 78.4 fL Normal 77.0-99.0 [facility] Comment on above: Performed By: #### L [id number] ####Floor Assembler: KELLEY DURAND ([id number])[facility] [place] ([facility])[address] [place] [address] Monocytes (Bld) [#/Vol] 0.8 10*3/uL Normal 0.0-0.9 [facility] Comment on above: Performed By: #### L [id number] ####Floor Assembler: KELLEY DURAND ([id number])[facility] [place] ([facility])[address] Monocytes/100 WBC (Bld) 11.6 % Normal 5.0-13.0 [facility] Comment on above: Performed By: #### L [id number] ####Floor Assembler: KELLEY DRUAND ([id number])[facility] [place] ([facility])[address] NEUTROPHILS ABSOLUTE 4.0 10*3/uL Normal 1.8-7.5 [facility] Comment on above: Performed By: #### L [id number] ####Floor Assembler: KELLEY DURAND ([id number])[facility] [place] ([facility])[address] Neutrophils/100 WBC (Bld) 57.2 % Normal 38.0-82.0 [facility] Comment on above: Performed By: #### L [id number] ####Floor Assembler: KELLEY DURAND ([phone])[facility] [place] ([facility])[address] NRBC 0.0 /100 WBCs Normal 0.0-2.0 [facility] Comment on above: Performed By: #### L [id number] ####Floor Assembler: KELLEY DURAND ([id number])[facility] (SB[facility])[address] Platelet mean volume (Bld) [Entitic vol] 11.3 fL Normal 9.0-12.7 [facility] Comment on above: Performed By: #### L [id number] ####Floor Assembler: KELLEY DURAND ([id number])[facility] ([facility])[address] Platelets (Bld) [#/Vol] 154 10*3/uL Normal 140-440 [facility] Comment on above: Performed By: #### L [id number] ####Floor Assembler: KELLEY DURAND ([id number])[facility] [place] ([facility])[address] [place] [address] [place] RBC (Bld) [#/Vol] 4.39 10*6/uL Normal 3.80-5.20 [facility] Comment on above: Performed By: #### L [id number] ####Floor Assembler: KELLEY DURAND ([id number])[facility] ([facility])[address] [place] [address] [place] WBC (Bld) [#/Vol] 6.9 10*3/uL Normal 3.6-10.7 [facility] Comment on above: Performed By: #### L [id number] ####Floor Assembler: KELLEY DURAND ([id number])[facility] (SBHLAB)[address] COMPREHENSIVE METABOLIC PANE [place] 11-13-2024 Albumin [Mass/Vol] 2.3 g/dL Low 3.4-4.8 [facility] Comment on above: Performed By: #### L [id number] ####Floor Assembler: KELLEY DURAND ([id number])[facility] (SB[facility])[address] ALP [Catalytic activity/Vol] 65 U/L Normal 40-150 [facility] Comment on above: Performed By: #### L [id number] ####Floor Assembler: KELLEY DURAND ([id number])[facility] ([facility])[address] ALT [Catalytic activity/Vol] 14 U/L Normal <30 [facility] Comment on above: Performed By: #### L [id number] ####Floor Assembler: KELLEY DURAND ([id number])[facility] (SB[facility])[address] Anion gap [Moles/Vol] 8 mmol/L Normal 3-13 [facility] Comment on above: Performed By: #### L [id number] ####Floor Assembler: KELLEY DURAND ([id number])[facility] ([facility])[address] AST [Catalytic activity/Vol] 24 U/L Normal <34 [facility] Comment on above: Performed By: #### L [id number] ####Floor Assembler: KELLEY DURAND ([id number])[facility] (SBHLAB)[address] [place] [address] Bilirubin [Mass/Vol] 0.2 mg/dL Normal <1.2 [facility] Comment on above: Performed By: #### L [id number] ####Floor Assembler: KELLEY DURAND ([id number])[facility] [place] (SBHLAB)[address] Calcium [Mass/Vol] 7.7 mg/dL Low 8.8-10.0 [facility] Comment on above: Performed By: #### L [id number] ####Floor Assembler: KELLEY DURAND ([id number])[facility] [place] (SBHLAB)[address] [place] [address] [place] Chloride [Moles/Vol] 108 mmol/L High 98-107 [facility] Comment on above: Performed By: #### L [id number] ####Floor Assembler: KELLEY DURAND ([id number])[facility] [place] ([facility])[address] CO2 [Moles/Vol] 21 mmol/L Low 23-31 [facility] Comment on above: Performed By: #### L [id number] ####Floor Assembler: KELLEY DURAND ([id number])[facility] [place] ([facility])[address] Creatinine [Mass/Vol] 1.02 mg/dL Normal 0.57-1.11 [facility] Comment on above: Performed By: #### L [id number] ####Floor Assembler: KELLEY DURAND ([id number])[facility] [place] ([facility])[address] [place] [address] [place] GLOMERULAR FILTRATION RATE ML/MIN/1.73 SQ M.PREDICTED 54.4 mL/min/1.73m*2 Low >60.0 [facility] Comment on above: Result Comment: Calc ulation based on the Chronic Kidney Disease Epidemiology Collaboration (CKD-EPI) equation refit without adjustment for race Performed By: #### L [id number] ####Floor Assembler: KELLEY DURAND ([id number])[facility] [place] ([facility])[address] [place] [address] [place] Glucose [Mass/Vol] 140 mg/dL High 82-115 [facility] Comment on above: Performed By: #### L [id number] ####Floor Assembler: KELLEY DURAND ([id number])[facility] [place] ([facility])[address] Potassium [Moles/Vol] 3.6 mmol/L Normal 3.5-5.1 [facility] Comment on above: Result Comment: [facility] potassium values may be up to 0.5 mmol/L lower than serum values. Performed By: #### L [id number] ####Floor Assembler: KELLEY DURAND ([id number])[facility] [place] ([facility])[address] Protein [Mass/Vol] 5.3 g/dL Low 6.4-8.3 [facility] Comment on above: Performed By: #### L [id number] ####Floor Assembler: KELLEY DURAND ([id number])[facility] (SB[facility])[address] Sodium [Moles/Vol] 137 mmol/L Normal 136-145 [facility] Comment on above: Performed By: #### L [id number] ####Floor Assembler: KELLEY DURAND ([id number])[facility] (SB[facility])[address] [place] [address] Urea nitrogen [Mass/Vol] 25 mg/dL High 9-23 [facility] Comment on above: Performed By: #### L [id number] ####Floor Assembler: KELLEY DURAND ([id number])[facility] (SB[facility])[address] [place] [address] Comprehensive metabolic 1998 panelon 11-13-2024 Albumin [Mass/Vol] 2.3 g/dL Low 3.4 - 4.8 g/dL [facility] ALP [Catalytic activity/Vol] 65 U/L 40 - 150 U/L [facility] ALT [Catalytic activity/Vol] 14 U/L NINF - 30 U/L [facility] Anion gap [Moles/Vol] 8 mmol/L 3 - 13 mmol/L [facility] AST [Catalytic activity/Vol] 24 U/L NINF - 34 U/L [facility] Bilirubin [Mass/Vol] 0.2 mg/dL NINF - 1.2 mg/dL [facility] Calcium [Mass/Vol] 7.7 mg/dL Low 8.8 - 10. 0 mg/dL [facility] Chloride [Moles/Vol] 108 mmol/L High 98 - 10 7 mmol/L [facility] CO2 [Moles/Vol] 21 mmol/L Low 23 - 31 mmol/L [facility] Creatinine [Mass/Vol] 1.02 mg/dL 0.57 - 1.11 mg/dL [facility] GFR/1.73 sq M.predicted (S/P/Bld) [Vol rate/Area] 54.4 mL/min Low - PINF [facility] Comment on above: Calculation based on the Chronic Kidney Disease Epidemiology Collaboration (CKD-EPI) equation refit without adjustment for race Glucose [Mass/Vol] 140 mg/dL High 82 - 115 mg/dL [facility] Interpretation and review of laboratory results Abnormal [facility] Potassium [Moles/Vol] 3.6 mmol/L 3.5 - 5.1 mmol/L [facility] Comment on above: Plasma potassium marialuisa ues may be up to 0.5 mmol/L lower than serum values. Protein [Mass/Vol] 5.3 g/dL Low 6.4 - 8.3 g/dL [facility] Sodium [Moles/Vol] 137 mmol/L 136 - 145 mmol/L [facility] Urea nitrogen [Mass/Vol] 25 mg/dL High 9 - 23 mg/dL [facility] Laboratory - Chemistry and C hemistry - challengeon 11-13-2024 Glucose [Mass/Vol] 123 mg/dL High 70 - 100 mg/dL [facility] Glucose [Mass/Vol] 81 mg/dL 70 - 100 mg/dL [facility] Glucose [Mass/Vol] 57 mg/dL Low 70 - 100 mg/dL [facility] Glucose [Mass/Vol] 52 mg/dL Low 70 - 100 mg/dL [facility] Glucose [Mass/Vol] 116 mg/dL High 70 - 100 mg/dL [facility] Glucose [Mass/Vol] 99 mg/dL 70 - 100 mg/dL [facility] No Panel Informationon 11-13 Interpretation and review of laboratory results Abnormal [facility] Performed by: [facility], [address] [place] [id number] CLIA ID: [id number] [facility] Interpretation and review of laboratory results Normal [facility] Performed by: [facility], [address] [place] [id number] CLIA ID: [id number] [facility] Interpretation and review of laboratory results Abnormal [facility] Performed by: [facility], [address] [place] [id number] CLIA ID: [id number] [facility] Interpretation and review of laboratory results Abnormal [facility] Performed by: [facility], [address] [place] [id number] CLIA ID: [id number] [facility] Interpretation and review of laboratory results Abnormal [facility] Performed by: [facility], [address] [place] [id number] CLIA ID: [id number] [facility] Interpretation and review of laboratory results Normal [facility] Performed by: [facility], [address] [place] [id number] CLIA ID: [id number] [facility] Progress Noteon 11-13-2024 Progress Note SUBJECTIVE: No event s overnight. Patient denies any further emesis. 1 bowel movement. Patient denies any overt bleeding. No abdominal pain at this time. Tolerating oral intake. Denies fever/chills, chest pain, shortness of breath, nausea/vomiting, diarrhea/constipation, headache, cough. CURRENT MEDICATIONS: Current Facility-Administered Medications: acetaminophen (Tylenol) tablet 650 mg, 650 mg, Oral, q6h PRN OR acetaminophen (Tylenol) suppository 650 mg, 650 mg, Rectal, q6h PRN, Julio Adams MD dextrose 5 % infusion, 100 mL/hr, IntraVENous, PRN, Julio Adams MD, Last Rate: 100 mL/hr at 11/12/24 1205, 100 mL/hr at 11/12/24 1205 dextrose 50 % solution 12.5 g, 12.5 g, IntraVENous, PRN, Julio Adams MD gabapentin (Neurontin) capsule 200 mg, 200 mg, Oral, BID, Joana Haywood MD, 200 mg at 11/13/242032 glucagon (human recombinant) injection 1 mg, 1 mg, IntraMUSCular, PRN, Julio Adams MD glucose oral gel 15 g, 15 g, Oral, PRN, Julio Adams MD insulin glargine (Lantus) injection 18 Units, 18 Units, SubCUTAneous, Nightly, Joana Haywood MD, 18 Units at 11/12/242218 Insulin Lispro (Humalog) injection 0-12 Units, 0-12 Units, SubCUTAneous, TID WC, 6 Units at 11/12/24 1704 AND Insulin Lispro (Humalog) injection 0-12 Units, 0-12 Units, SubCUTAneous, Nightly, Julio Adams MD, 6 Units at 11/12/242035 Insulin Lispro (Humalog) injection 14 Units, 14 Units, SubCUTAneous, TID WC, Joana Haywood MD, 14 Units at 11/13/24 1217 ipratropium-albuterol (Duo-Neb) 0.5-2.5 mg/3 mL nebulizer solution 3 mL, 3 mL, Nebulization, BID PRN, Joana Haywood MD lisinopril tablet 20 mg, 20 mg, Oral, Daily, Joana Haywood MD, 20 mg at 11/13/24915 metoprolol succinate XL (Toprol-XL) 24 hr tablet 50 mg, 50 mg, Oral, Daily, Joana Haywood MD, 50 mg at 11/13/24915 mirtazapine (Remeron) tablet 45 mg, 45 mg, Oral, Nightly, Joana Haywood MD, 45 mg at 11/13/242032 ondansetron ODT (Zofran-ODT) disintegrating tablet 4 mg, 4 mg, Oral, q8h PRN OR ondansetron (Zofran) injection 4 mg, 4 mg, IntraVENous, q6h PRN, Julio Adams MD pantoprazole (ProtoNix) EC tablet 40 mg, 40 mg, Oral, qAM AC, 40 mg at 11/13/24 0547 OR pantoprazole (ProtoNix) 40 mg in sodium chloride (PF) 0.9 % 10 mL injection, 40 mg, IntraVENous, qAM AC, Chao Pal MD polyethylene glycol (PEG) 3350 (Miralax) packet 17 g, 17 g, Oral, Daily PRN, Julio Adams MD OBJECTIVE VITALS: BP 125/82 (BP Location: Right arm, Patient Position: Sitting) Pulse 80 Temp 37.8 ?C (100.1 ?F) (Temporal) Resp 18 Ht 5' 1 (1.549 m) Wt 163 lb (73.9 kg) SpO2 97% BMI 30.80 kg/m? TEMPERATURE: Current - Temp: 37.8 ?C (100.1 ?F); Max - Temp Av.8 ?C (98.2 ?F) Min: 35.8 ?C (96.4 ?F) Max: 37.8 ?C (100.1 ?F) RESPIRATIONS RANGE: Resp Av.4 Min: 16 Max: 18 PULSE RANGE: Pulse Av.1 Min: 71 Max: 87 BLOOD PRESSURE RANGE: Systolic (24hrs), Av , Min:125 , Max:185 ; Diastolic (24hrs), Av, Min:69, Max:90 PULSE OXIMETRY RANGE: SpO2 Av.7 % Min: 93 % Max: 99 % 24HR INTAKE/OUTPUT: Intake/Output Summary (Last 24 hours) at 11/13/2024 2336 Last data filed at 11/13/2024 2255 Gross per 24 hour Intake 500 ml Output 1375 ml Net -875 ml GENERAL: Pleasant and NAD. HEENT: NCAT, PERRLA, EOMI, Scleral anicteric. Oropharhynx clear with no erythema or exudate. Neck supple, no cervical LAD or thyromegaly. CV: RRR, NL S1/S2, no murmurs. Distal pulses palpable and equal b/l. LUNGS: CTA b/l. Normal percussion and palpation. No W/R/R. ABD: + BS, soft, non-tender and non-distended. No hepatosplenomegaly. No mass felt. No rebound or guarding. EXT: No C/C/E. No muscle atrophy. SKIN: No skin lesion or breakdown. NEURO: Patient with some confusion, CN II-XII grossly intact. No asterixis. Laboratory Data: CBC: Results from last 7 days Lab Units 11/13/24 01411/12/2451311/11/242057 WBC AUTO 10*3/uL 6.9 7.6 11.4* HEMOGLOBIN g/dL 10.4* 10.8* 12.7 HEMATOCRIT % 34.4* 35.1 40.3 PLATELETS 10*3/uL 154 171 190 CMP: Recent Labs 11/12/2451311/13/2458 NA 137 137 K 3.7 3.6 CL 107 108* CO2 22* 21* BUN 34* 25* CREATININE 1.32* 1.02 GLUCOSE 190* 140* CALCIUM 8.3* 7.7* HEPATIC: Results from last 7 days Lab Units 11/13/245811/11/242057 ALK PHOS U/L 65 82 BILIRUBIN TOTAL mg/dL 0.2 0.4 PROTEIN TOTAL g/dL 5.3* 7.0 ALT U/L 14 17 AST U/L 24 35* LIPASE/AMYLASE: Recent Labs 11/11/242057 LIPASE 6 LACTATE: No lab exists for component: LACTA TROPONIN: No results for input(s): TROPONINI in the last 72 hours. LIPIDS: No results for input(s): CHOL, HDL in the last 72 hours. No lab exists for component: LDLCALCU INR: No results for input(s): INR in the last 72 hours. NH3:No results for input(s): AMMONIA in the last 72 hours. BNP: No results for input(s): BNP in the last 72 hours. Imaging: ECG 12 lead Sinus rhythm Atrial premature comp (more content not included)... Normal [facility] Progress Note Nutrition rescreen complete. Pt assigned a level one for nutrition care. Normal [facility] 30on 11-12-2024 30 Problem: Knowledge Deficit Goal: Patient/family/caregiv er demonstrates understanding of disease process, treatment plan, medications, and discharge instructions 11/12/2024730 by Stacey Winters RN Outcome: Not Progressing 11/12/2024140 by Stacey Winters RN Outcome: Not Progressing Problem: Potential for Compromised Skin Integrity Goal: Skin Integrity is Maintained or Improved 11/12/2024730 by Stacey Winters RN Outcome: Not Progressing 11/12/2024140 by Stacey Winters RN Outcome: Not Progressing Goal: Nutritional status is improving 11/12/2024730 by Stacey Winters RN Outcome: Not Progressing 11/12/2024140 by Stacey Winters RN Outcome: Not Progressing Problem: Urinary Incontinence Goal: Perineal skin integrity is maintained or improved 11/12/2024730 by Stacey Winters RN Outcome: Not Progressing 11/12/2024140 by Stacey Winters RN Outcome: Not Progressing Problem: Potential for Falls Goal: I will remain free of falls 11/12/2024730 by Stacey Winters RN Outcome: Not Progressing 11/12/2024140 by Stacey Winters RN Outcome: Not Progressing Problem: Discharge Barriers Goal: My discharge needs are met 11/12/2024730 by Stacey Winters RN Outcome: Not Progressing 11/12/2024140 by Stacey Winters RN Outcome: Not Progressing Normal [facility] 30 Problem: Knowledge Deficit Goal: Patient/family/caregiv er demonstrates understanding of disease process, treatment plan, medications, and discharge instructions Outcome: Not Progressing Problem: Potential for Compromised Skin Integrity Goal: Skin Integrity is Maintained or Improved Outcome: Not Progressing Goal: Nutritional status is improving Outcome: Not Progressing Problem: Urinary Incontinence Goal: Perineal skin integrity is maintained or improved Outcome: Not Progressing Problem: Potential for Falls Goal: I will remain free of falls Outcome: Not Progressing Problem: Discharge Barriers Goal: My discharge needs are met Outcome: Not Progressing Normal [facility] [id number] 11-12-2024 [id number] Cyber Crime Investigator following case for Discharge Needs. Normal [facility] BASIC METABOLIC PANELon - Anion gap [Moles/Vol] 8 mmol/L Normal 3-13 [facility] Comment on above: Performed By: #### L [id number] ####Floor Assembler: KELLEY DURAND ([phone])[facility] (SBHLAB)[address] Calcium [Mass/Vol] 8.3 mg/dL Low 8.8-10.0 [facility] Comment on above: Performed By: #### L [id number] ####Floor Assembler: KELLEY DURAND ([id number])[facility] [place] ([facility])[address] Chloride [Moles/Vol] 107 mmol/L Normal 98-107 [facility] Comment on above: Performed By: #### L AB15 ####Floor Assembler: KELLEY DURAND ([id number])[facility] [place] ([facility])[address] CO2 [Moles/Vol] 22 mmol/L Low 23-31 [facility] Comment on above: Performed By: #### L [id number] ####Floor Assembler: KELLEY DURAND ([id number])[facility] [place] ([facility])[address] Creatinine [Mass/Vol] 1.32 mg/dL High 0.57-1.11 [facility] Comment on above: Performed By: #### L AB15 ####Floor Assembler: KELLEY DURAND ([phone])[facility] (SB[facility])[address] [place] [address] [place] GLOMERULAR FILTRATION RATE ML/MIN/1.73 SQ M.PREDICTED 39.9 mL/min/1.73m*2 Low >60.0 [facility] Comment on above: Result Comment: Calc ulation based on the Chronic Kidney Disease Epidemiology Collaboration (CKD-EPI) equation refit without adjustment for race Performed By: #### L [id number] ####Floor Assembler: KELLEY DURAND ([id number])[facility] (SBHLAB)[address] [place] [address] [place] Glucose [Mass/Vol] 190 mg/dL High 82-115 [facility] Comment on above: Performed By: #### L AB15 ####Floor Assembler: KELLEY DURAND ([id number])[facility] (SB[facility]AB)[address] Potassium [Moles/Vol] 3.7 mmol/L Normal 3.5-5.1 [facility] Comment on above: Result Comment: [facility] potassium values may be up to 0.5 mmol/L lower than serum values. Performed By: #### L AB15 ####Floor Assembler: KELLEY DURAND ([phone])[facility] [place] ([facility])[address] Sodium [Moles/Vol] 137 mmol/L Normal 136-145 [facility] Comment on above: Performed By: #### L AB15 ####Floor Assembler: KELLEY DURAND ([id number])[facility] (SB[facility])[address] [place] [address] Urea nitrogen [Mass/Vol] 34 mg/dL High 9-23 [facility] Comment on above: Performed By: #### L AB15 ####Floor Assembler: KELLEY DURAND ([id number])[facility] ([facility])[address] [place] [address] Basic metabolic 1998 panelOr dered By: Amrit Campos on 11-12-2024 Anion gap [Moles/Vol] 8 mmol/L 3 - 13 mmol/L [facility] Calcium [Mass/Vol] 8.3 mg/dL Low 8.8 - 10. 0 mg/dL [facility] Chloride [Moles/Vol] 107 mmol/L 98 - 10 7 mmol/L [facility] CO2 [Moles/Vol] 22 mmol/L Low 23 - 31 mmol/L [facility] Creatinine [Mass/Vol] 1.32 mg/dL High 0.57 - 1.11 mg/dL [facility] GFR/1.73 sq M.predicted (S/P/Bld) [Vol rate/Area] 39.9 mL/min Low - PINF [facility] Comment on above: Calculation based on the Chronic Kidney Disease Epidemiology Collaboration (CKD-EPI) equation refit without adjustment for race Glucose [Mass/Vol] 190 mg/dL High 82 - 115 mg/dL [facility] Interpretation and review of laboratory results Abnormal [facility] Potassium [Moles/Vol] 3.7 mmol/L 3.5 - 5.1 mmol/L [facility] Comment on above: Plasma potassium marialuisa ues may be up to 0.5 mmol/L lower than serum values. Sodium [Moles/Vol] 137 mmol/L 136 - 145 mmol/L [facility] Urea nitrogen [Mass/Vol] 34 mg/dL High 9 - 23 mg/dL [facility] CBC W Auto Differential pane l (Bld)Ordered By: Issa Pearson on 11-12-2024 Basophils (Bld) [#/Vol] 0 10*3/uL 0.0 - 0.2 10*3/uL [facility] Basophils/100 WBC (Bld) 0.3 % 0.0 - 2.0 % [facility] Eosinophils (Bld) [#/Vol] 0 10*3/uL 0.0 - 0.5 10*3/uL [facility] Eosinophils/100 WBC (Bld) 0.3 % 0.0 - 6.0 % [facility] Erythrocyte distribution width (RBC) [Ratio] 20.4 % High 11.5 - 15.0 % [facility] Hematocrit (Bld) [Volume fraction] 35.1 % 35.0 - 47.0 % [facility] Hemoglobin (Bld) [Mass/Vol] 10.8 g/dL Low 11.7 - 16.0 g/dL [facility] Immature granulocytes (Bld) [#/Vol] 0 10*3/uL NINF - 0.1 10*3/uL [facility] Immature granulocytes/100 WBC (Bld) 0.4 % 0.0 - 2.0 % [facility] Interpretation and review of laboratory results Abnormal [facility] Lymphocytes (Bld) [#/Vol] 1.3 10*3/uL 1.0 - 4.3 10*3/uL [facility] Lymphocytes/100 WBC (Bld) 17.6 % 15.0 - 45.0 % [facility] MCH (RBC) [Entitic mass] 23.9 pg Low 26.0 - 34.0 pg [facility] MCHC (RBC) [Mass/Vol] 30.8 % 30.5 - 36.0 % [facility] MCV (RBC) [Entitic vol] 77.7 fL 77.0 - 99.0 fL [facility] Monocytes (Bld) [#/Vol] 0.6 10*3/uL 0.0 - 0.9 10*3/uL [facility] Monocytes/100 WBC (Bld) 7.5 % 5.0 - 13.0 % [facility] Neutrophils (Bld) [#/Vol] 5.6 10*3/uL 1.8 - 7.5 10*3/uL [facility] Neutrophils/100 WBC (Bld) 73.9 % 38.0 - 82.0 % [facility] Nucleated RBC/100 WBC (Bld) [Ratio] 0 % [facility] Platelet mean volume (Bld) [Entitic vol] 11.6 fL 9.0 - 12.7 fL [facility] Platelets (Bld) [#/Vol] 171 10*3/uL 140 - 440 10*3/uL [facility] RBC (Bld) [#/Vol] 4.52 10*6/uL 3.80 - 5.2 0 10*6/uL [facility] WBC (Bld) [#/Vol] 7.6 10*3/uL 3.6 - 10.7 10*3/uL [facility] CBC WITH AUTO DIFFERENTIALon 11-12-2024 Basophils (Bld) [#/Vol] 0.0 10*3/uL Normal 0.0-0.2 [facility] Comment on above: Performed By: #### L [id number] ####Floor Assembler: KELLEY DURAND ([id number])[facility] [place] [address] Basophils/100 WBC (Bld) 0.3 % Normal 0.0-2.0 [facility] Comment on above: Performed By: #### L [id number] ####Floor Assembler: KELLEY DURAND ([id number])[facility] (SBHLAB)[address] Eosinophils (Bld) [#/Vol] 0.0 10*3/uL Normal 0.0-0.5 [facility] Comment on above: Performed By: #### L [id number] ####Floor Assembler: KELLEY DURAND ([id number])[facility] ([facility])[address] [place] [address] Eosinophils/100 WBC (Bld) 0.3 % Normal 0.0-6.0 [facility] Comment on above: Performed By: #### L [id number] ####Floor Assembler: KELLEY DURAND ([id number])[facility] ([facility])[address] [place] [address] Erythrocyte distribution width (RBC) [Ratio] 20.4 % High 11.5-15.0 [facility] Comment on above: Performed By: #### L [id number] ####Floor Assembler: KELLEY DURAND ([id number])[facility] ([facility])[address] [place] [address] Hematocrit (Bld) [Volume fraction] 35.1 % Normal 35.0-47.0 [facility] Comment on above: Performed By: #### L [id number] ####Floor Assembler: KELLEY DURAND ([id number])[facility] ([facility])[address] [place] [address] Hemoglobin (Bld) [Mass/Vol] 10.8 g/dL Low 11.7-16.0 [facility] Comment on above: Performed By: #### L [id number] ####Floor Assembler: KELLEY DURAND ([id number])[facility])[address] [place] [address] IMMATURE GRANS % 0.4 % Normal 0.0-2.0 [facility] Comment on above: Performed By: #### L [id number] ####Floor Assembler: KELLEY DURAND ([id number])[facility] ([facility])[address] [place] [address] IMMATURE GRANS ABSOLUTE 0.0 10*3/uL Normal <0.1 [facility] Comment on above: Performed By: #### L [id number] ####Floor Assembler: KELLEY DURAND ([id number])[facility] (SB[facility])[address] Lymphocytes (Bld) [#/Vol] 1.3 10*3/uL Normal 1.0-4.3 [facility] Comment on above: Performed By: #### L [id number] ####Floor Assembler: KELLEY DURAND ([id number])[facility]ITAL[facility] ([facility])[address] Lymphocytes/100 WBC (Bld) 17.6 % Normal 15.0-45.0 [facility] Comment on above: Performed By: #### L [id number] ####Floor Assembler: KELLEY ARRINGTONTERRELL ([id number])[facility] ([facility])[address] [place] [address] MCH (RBC) [Entitic mass] 23.9 pg Low 26.0-34.0 [facility] Comment on above: Performed By: #### L [id number] ####Floor Assembler: KELLEY DURAND ([id number])[facility] [place] ([facility])[address] [place] [address] MCHC 30.8 % Normal 30.5-36.0 [facility] Comment on above: Performed By: #### L [id number] ####Floor Assembler: KELLEY DURAND ([id number])[facility]BRE[facility]ABIL[facility] ([facility])[address] [place] [address] MCV (RBC) [Entitic vol] 77.7 fL Normal 77.0-99.0 [facility] Comment on above: Performed By: #### L [id number] ####Floor Assembler: KELLEY DURAND ([id number])[facility] ([facility])[address] [place] [address] Monocytes (Bld) [#/Vol] 0.6 10*3/uL Normal 0.0-0.9 [facility] Comment on above: Performed By: #### L [id number] ####Floor Assembler: KELLEY DURAND ([id number])[facility] [place] ([facility])[address] Monocytes/100 WBC (Bld) 7.5 % Normal 5.0-13.0 [facility] Comment on above: Performed By: #### L [id number] ####Floor Assembler: KELLEY DURAND ([id number])[facility] ([facility])[address] NEUTROPHILS ABSOLUTE 5.6 10*3/uL Normal 1.8-7.5 [facility] Comment on above: Performed By: #### L [id number] ####Floor Assembler: KELLEY ARRINGTONTERRELL ([id number])[facility] [place] ([facility])[address] Neutrophils/100 WBC (Bld) 73.9 % Normal 38.0-82.0 [facility] Comment on above: Performed By: #### L [id number] ####Floor Assembler: KELLEY DURAND ([id number])[facility] [place] ([facility])[address] NRBC 0.0 /100 WBCs Normal 0.0-2.0 [facility] Comment on above: Performed By: #### L [id number] ####Floor Assembler: KELLEY DURAND ([id number])[facility] [place] ([facility])[address] Platelet mean volume (Bld) [Entitic vol] 11.6 fL Normal 9.0-12.7 [facility] Comment on above: Performed By: #### L [id number] ####Floor Assembler: KELLEY DURAND ([id number])[facility] [place] ([facility])[address] Platelets (Bld) [#/Vol] 171 10*3/uL Normal 140-440 [facility] Comment on above: Performed By: #### L [id number] ####Floor Assembler: KELLEY DURAND ([id number])[facility] [place] ([facility])[address] [place] [address] RBC (Bld) [#/Vol] 4.52 10*6/uL Normal 3.80-5.20 [facility] Comment on above: Performed By: #### L [id number] ####Floor Assembler: KELLEY DURAND ([id number])[facility]ITAL[facility]NB[facility] (SB[facility]AB)[address] WBC (Bld) [#/Vol] 7.6 10*3/uL Normal 3.6-10.7 [facility] Comment on above: Performed By: #### L [id number] ####Floor Assembler: KELLEY DURAND ([id number])[facility]ITAL[facility] [place] (SB[facility])[address] [place] [address] Melvi 11-12-2024 CNPN Telephone (FPDOYL) MARGARITA BETANCOURT ([id number]) 1940 F Date Time Provider Department 11/12/24 JONN KRISHNAMURTHY FPDOYL During your visit today, we recorded the following information about you: Kelly Biggs 11/12/2024 12:29 PM Signed ----- Message from Parisa Tucker sent at 11/12/2024 11:27 AM EDT ----- [address] [place] [address]/FAMVangie BARRAGAN/Jonn Krishnamurthy/caller is requesting a call back Subject Line Format: Medicine / Jonn Krishnamurthy DO / caller is requesting a call back Select Department Name For Pool Routing Assistance: [facility] [place] => [facility] [place] APPT CTR TRAIGE POOL [[id number]] = Patient: Margarita Betancourt Date of : 1940 Primary Care Provider: Jonn Krishnamurthy, The reason I am contacting the office is: Call Back - Patient is requesting a call back from Jonn Krishnamurthy about Estefany, the patient's [id number], called to say that the patient is not feeling well. Yesterday she said she called 911 and the patient was taken to the hospital. She said the patient was very confused, not speaking, and was vomiting. She said the patient is currently admitted to [facility]. Estefany requested a call back to discuss the patient's condition please. Person calling if other than patient: Estefany Best contact number: [phone] Thank you, Parisa Cid November 12, 2024 11:27 AM Kelly Biggs 11/12/2024 12:33 PM Signed Margarita's daughter called just to let Dr. Krishnamurthy know that Margarita is in the hospital and not doing well, Kidney's seem to be failing along with confusion and vomiting. Kelly Biggs Allergies As of Date: 11/12/2024 Noted Allergy Reaction MEPERIDINE 07/01/2016 16 - Unknown 11 - Vomiting Date Reviewed: 06/11/2024 Reviewed by: Jaz Dawkins LPN - Fully Assessed Reason for Visit: Patient Update [1234] Cmt: Patient went into hospital 911 yesterday, very confused, vomiting and failing kidneys. Daughter wanted To know. Prescriptions as of 12/05/2024 - mirtazapine (REMERON) 45 mg tablet Take 1 tablet by mouth daily at bedtime. - ondansetron orally disintegrating (ZOFRAN ODT) 4 mg disintegrating tablet Take 1 tablet by mouth every 8 hours as needed for nausea/vomiting. - lisinopril (ZESTRIL) 20 mg tablet Take 1 tablet by mouth once daily. - metoprolol succinate ER (TOPROL XL) 50 mg 24 hr tablet Take 1 tablet by mouth once daily. - nitrofurantoin monohydrate and macrocrystal (MACROBID) 100 mg capsule Take 1 capsule by mouth two times a day. - insulin lispro (HUMALOG KWIKPEN INSULIN) 100 unit/mL INJECT 14 UNITS SUBCUTANEOUSLY THREE TIMES DAILY BEFORE MEALS. - omeprazole (PRILOSEC) 40 mg capsule Take 1 capsule by mouth two times a day. - insulin glargine (LANTUS SOLOSTAR U-100 INSULIN) 100 unit/mL (3 mL) Inject 18 Units subcutaneously daily at bedtime. - gabapentin (NEURONTIN) 300 mg capsule Take 1 capsule by mouth two times a day. - ELIQUIS 5 mg tab(s) Take 1 tablet by mouth every afternoon. - phenazopyridine HCl (AZO ORAL) Take by mouth. Gummies OTC - hydrOXYzine pamoate (VISTARIL) 25 mg capsule Take 1-2 capsules by mouth daily at bedtime. - Magnesium 30 mg tablet Take 30 mg by mouth. daily - POTASSIUM-99 ORAL Take by mouth. - docusate sodium (COLACE) 100 mg capsule Take 1 capsule by mouth once daily as needed for constipation. - ipratropium-albuterol (DUONEB) 0.5 mg-3 mg(2.5 mg base)/3 mL nebu USE 1 VIAL IN NEBULIZER 4 TIMES DAILY - MEDICATION, NON-DATABASE Co q 10 b complex Calcium AND vit d - QUEtiapine (SEROQUEL) 25 mg tablet TAKE 1/2 TABLET AT BEDTIME SCHEDULED, AND TAKE 1/2 TABLET DAILY NEEDED - MV with Vpm-Ixtlsfrk-Jgltmp (CENTRUM SILVER) 0.4-300-250 mg-mcg-mcg tab Centrum Silver Tablet Centrum Silver Tablet Active 1 TAB DAILY December 23, 2015 3:40pm 12-23-2015 [facility] ([id number]) - PRODIGY LANCETS MISC four times daily. - blood sugar diagnostic (PRODIGY NO CODING) test strip four times daily. Meds Comments as of 10/08/2021: Problem List As Of Date 11/12/2024 Noted Resolved Insulin-treated type 2 diabetes mellitus (HCC) * Hyperlipidemia, mixed [E78.2] Screening for thyroid disorder [Z13.29] 12/14/2020 Generalized arthritis [M19.90] 12/14/2020 Recurrent UTI (urinary tract infection) [N39.0] 04/29/2021 Late onset Alzheimer's dementia with behavioral*04/29/2021 Essential (primary) hypertension [I10] 02/02/2022 Gastro-esophageal reflux disease without esopha*02/02/2022 Chronic insomnia [F51.04] 01/23/2023 Primary osteoarthritis of both hips [M16.0] 01/23/2023 Primary osteoarthritis of right knee [M17.11] 01/23/2023 Obesity, Class I, BMI 30-34.9 [E66.811] 01/23/2023 Lumbar spondylosis [M47.816] 07/11/2023 Spinal stenosis of lumbar region without neurog*04/21/ (more content not included)... Normal [facility] CT HEAD WO IV CONTRASTon CT HEAD WO IV CONTRAST [facility] Name[facility]AVEZ : 1940 [id number] Exam Date/Time: 11/12/2024 00:15 Procedure: CT HEAD WO IV CONTRAST Ordering Provider: ADAMS ISH Reason For Exam: Mental status change, unknown cause CT HEAD: CLINICAL INDICATION: Mental status change, unknown cause. TECHNIQUE: Transaxial CT sequence performed through the head with 3 mm reconstruction. Sagittal and Coronal reconstruction images included. Dose reduction employed with automated exposure control. COMPARISON: CT head from 02/16/2019. MRI brain from 03/11/2017 FINDINGS: Ventricles and Extra-axial spaces: Normal in size and morphology for the patient's age. No abnormal extracerebral collection identified. Cerebral and cerebellar parenchyma: Periventricular low attenuation areas bilaterally, corresponding to chronic microvascular ischemic change. No additional focal mass lesion or evidence for acute infarct throughout the cerebrum or cerebellum. Hemorrhage: None Brainstem: Normal Visualized Paranasal sinuses: Normal. Mastoid air cells: Normal Visualized Orbits: Normal Calvarium and skull base: Normal Other: Atherosclerotic calcification within the distal internal carotid arteries IMPRESSION: Diminished cerebral volume and evidence of chronic microvascular ischemic change without acute intracranial abnormality. Report Dictated on Electronically Signed By: Ruslan Barnes MD Electronically Signed Date/Time: 11/12/2024 12:[address] [facility] CT Head WO contraston 2024 Diminished cerebral volume and evidence of chronic microvascular ischemic change without acute intracranial abnormality. Report Dictated on Electronically Signed By: Ruslan Barnes MD Electronically Signed Date/Time: 11/12/2024 12:34 AM T [facility] Patient Name: MARGARITA BETANCOURT : 1940 [id number] Exam Date/Time: 11/12/2024 00:15 Procedure: CT HEAD WO IV CONTRAST Ordering Provider: ADAMS ISH Reason For Exam: Mental status change, unknown cause CT HEAD: CLINICAL INDICATION: Mental status change, unknown cause. TECHNIQUE: Transaxial CT sequence performed through the head with 3 mm reconstruction. Sagittal and Coronal reconstruction images included. Dose reduction employed with automated exposure control. COMPARISON: CT head from 02/16/2019. MRI brain from 03/11/2017 FINDINGS: Ventricles and Extra-axial spaces: Normal in size and morphology for the patient's age. No abnormal extracerebral collection identified. Cerebral and cerebellar parenchyma: Periventricular low attenuation areas bilaterally, corresponding to chronic microvascular ischemic change. No additional focal mass lesion or evidence for acute infarct throughout the cerebrum or cerebellum. Hemorrhage: None Brainstem: Normal Visualized Paranasal sinuses: Normal. Mastoid air cells: Normal Visualized Orbits: Normal Calvarium and skull base: Normal Other: Atherosclerotic calcification within the distal internal carotid arteries [facility] Ruslan Barnes MD - 11/12/2024 Patient Name: MARGARITA BETANCOURT : 1940 Exam Date/Time: 11/12/2024 00:15 Procedure: CT HEAD WO IV CONTRAST Ordering Provider: ADAMS ISH Reason For Exam: Mental status change, unknown cause CT HEAD: CLINICAL INDICATION: Mental status change, unknown cause. TECHNIQUE: Transaxial CT sequence performed through the head with 3 mm reconstruction. Sagittal and Coronal reconstruction images included. Dose reduction employed with automated exposure control. COMPARISON: CT head from 02/16/2019. MRI brain from 03/11/2017 FINDINGS: Ventricles and Extra-axial spaces: Normal in size and morphology for the patient's age. No abnormal extracerebral collection identified. Cerebral and cerebellar parenchyma: Periventricular low attenuation areas bilaterally, corresponding to chronic microvascular ischemic change. No additional focal mass lesion or evidence for acute infarct throughout the cerebrum or cerebellum. Hemorrhage: None Brainstem: Normal Visualized Paranasal sinuses: Normal. Mastoid air cells: Normal Visualized Orbits: Normal Calvarium and skull base: Normal Other: Atherosclerotic calcification within the distal internal carotid arteries IMPRESSION: Diminished cerebral volume and evidence of chronic microvascular ischemic change without acute intracranial abnormality. Report Dictated on Electronically Signed By: Ruslan Barnes MD Electronically Signed Date/Time: 11/12/2024 12:34 AM EDT [facility] Radiology Study observation (narrative) [facility] [employer] CT Head WO contrastOrdered B y: Ruslan Barnes on 11-12-2024 [facility] [employer] Work Phone: ECG 12-LEADon 11-12-2024 ECG 12-LEAD IMPRESSION: Sinus rhythm Atrial premature complex Borderline repolarization abnormality Electronically Signed On 11-12-2024 05:38:47 EDT by Ruth Matias Normal [facility] [employer] [facility] Laboratory - Chemistry and C hemistry - challengeon 11-12-2024 Glucose [Mass/Vol] 263 mg/dL High 70 - 100 mg/dL [facility] [employer] Glucose [Mass/Vol] 251 mg/dL High 70 - 100 mg/dL [facility] [employer] Glucose [Mass/Vol] 204 mg/dL High 70 - 100 mg/dL [facility] [employer] Glucose [Mass/Vol] 178 mg/dL High 70 - 100 mg/dL [facility] [employer] Glucose [Mass/Vol] 189 mg/dL High 70 - 100 mg/dL [facility] [employer] No Panel Informationon 11-12 Interpretation and review of laboratory results Abnormal [facility] [employer] Performed by: [facility], [address] [place] [id number] CLIA ID: [id number] [facility] Interpretation and review of laboratory results Abnormal [facility] [employer] Performed by: [facility], [address] [facility] [address] CLIA ID: [id number] [facility] Interpretation and review of laboratory results Abnormal [facility] Health Performed by: [facility], [address] [facility] [address] CLIA ID: [id number] [facility] [employer] [facility] Sinus rhythm Atrial premature complex Borderline repolarization abnormality Electronically Signed On 11-12-2024 05:38:47 EDT by Ruth Mcgee DO - 11/12/2024 IMPRESSION: Sinus rhythm Atrial premature complex Borderline repolarization abnormality Electronically Signed On 11-12-2024 05:38:47 EDT by Ruth [facility] [employer] Interpretation and review of laboratory results Abnormal [facility] Health Performed by: [facility], [address] [facility] [address] CLIA ID: [id number] [facility] [employer] Interpretation and review of laboratory results Abnormal [facility] [employer] Performed by: [facility], [address] [place] [id number] CLIA ID: [id number] [facility] [employer] No Panel InformationOrdered By: Ruth Matias on 11-12-2024 P [place] 5 degrees [facility] Work Phone: [place] Interval 186 ms [facility] Work Phone: QRS [place] 6 degrees [facility] Work Phone: QRSD Interval 96 ms [facility] Work Phone: QT Interval 389 ms [facility] Work Phone: QTC Interval 457 ms [facility] Work Phone: T Wave [place] 160 degrees [facility] Work Phone: [facility] Work Phone: Progress Noteon 11-12-2024 Progress Note PHYSICAL THERAPY [facility] Name/MRN: Margarita Betancourt ([id number]) Date: 11/12/2024 Chart review completed. Recent documentation reveals that OT and RN reported that pt has been extremely lethargic and only wakes to touch occasionally. Pt opened her eyes briefly for OT at 10:55 but quickly returned to sleep. Pt not yet appropriate for therapy evaluation. Plan to re-attempt once pt is more awake and alert. Cristine Ritter, PT Normal [facility] Progress Note OCCUPATIONAL THERAPY [facility] Name/MRN: Margarita Betancourt ([id number]) Date: 11/12/2024 OT orders received and chart reviewed. Spoke to RN at pts bedside, who reported that pt has been extremely lethargic and only wakes to touch occasionally. Pt opened her eyes briefly but quickly returned to sleep. Pt not yet appropriate for therapy evaluation. Plan to re-attempt once pt is more awake and alert. Miranda Bower, OT Normal [facility] Vital signsOrdered By: Nori Matias on 11-12-2024 Heart rate 84 /min bpm [facility] Work Phone: BLOOD TYPE AND SCREEN GELon 11-11-2024 ABO GROUPING A Normal [facility] Comment on above: Performed By: #### L [id number] ####Floor Assembler: KELLEY DURAND ([id number])[facility]OD [facility] ([facility])[address] RH TYPE IN BLOOD Positive Normal [facility] Comment on above: Performed By: #### L [id number] ####Floor Assembler: KELLEY DURAND ([id number])[facility] BLOOD [facility] ([facility])[address] Blood type and Crossmatch andrew harvey (Bld)on 11-11-2024 ABO group Nom (Bld) A [facility] Blood group antibody screen GEL Ql Negative [facility] D Ag Ql (RBC) Positive [facility] Healt h [facility] CBC W Auto Differential pane l (Bld)Ordered By: Olman Casanova on 11-11-2024 Basophils (Bld) [#/Vol] 0 10*3/uL 0.0 - 0.2 10*3/uL [facility] Basophils/100 WBC (Bld) 0.2 % 0.0 - 2.0 % [facility] Eosinophils (Bld) [#/Vol] 0 10*3/uL 0.0 - 0.5 10*3/uL [facility] Eosinophils/100 WBC (Bld) 0 % 0.0 - 6.0 % [facility] Erythrocyte distribution width (RBC) [Ratio] 20.5 % High 11.5 - 15.0 % [facility] Hematocrit (Bld) [Volume fraction] 40.3 % 35.0 - 47.0 % [facility] Hemoglobin (Bld) [Mass/Vol] 12.7 g/dL 11.7 - 16.0 g/dL [facility] [employer] Immature granulocytes (Bld) [#/Vol] 0.1 10*3/uL High NINF - 0.1 10*3/uL [facility] Health Immature granulocytes/100 WBC (Bld) 0.5 % 0.0 - 2.0 % [facility] Interpretation and review of laboratory results Abnormal [facility] IPF 5 [facility] Lymphocytes (Bld) [#/Vol] 1.3 10*3/uL 1.0 - 4.3 10*3/uL [facility] Lymphocytes/100 WBC (Bld) 11 % Low 15.0 - 45.0 % [facility] MCH (RBC) [Entitic mass] 24 pg Low 26.0 - 34.0 pg [facility] MCHC (RBC) [Mass/Vol] 31.5 % 30.5 - 36.0 % [facility] MCV (RBC) [Entitic vol] 76.2 fL Low 77.0 - 99.0 fL [facility] Monocytes (Bld) [#/Vol] 0.6 10*3/uL 0.0 - 0.9 10*3/uL [facility] Monocytes/100 WBC (Bld) 4.8 % Low 5.0 - 13.0 % [facility] Neutrophils (Bld) [#/Vol] 9.5 10*3/uL High 1.8 - 7.5 10*3/uL [facility] Health Neutrophils/100 WBC (Bld) 83.5 % High 38.0 - 82.0 % [facility] Nucleated RBC/100 WBC (Bld) [Ratio] 0 % [facility] Platelet mean volume (Bld) [Entitic vol] 11.9 fL 9.0 - 12.7 fL [facility] Platelets (Bld) [#/Vol] 190 10*3/uL 140 - 440 10*3/uL [facility] RBC (Bld) [#/Vol] 5.29 10*6/uL High 3.80 - 5.2 0 10*6/uL [facility] WBC (Bld) [#/Vol] 11.4 10*3/uL High 3.6 - 10.7 10*3/uL [facility] CBC WITH AUTO DIFFERENTIALon 11-11-2024 Basophils (Bld) [#/Vol] 0.0 10*3/uL Normal 0.0-0.2 [facility] Comment on above: Performed By: #### L [id number] ####Floor Assembler: KELLEY DURAND ([id number])[facility] [place] ([facility])[address] Basophils/100 WBC (Bld) 0.2 % Normal 0.0-2.0 [facility] Comment on above: Performed By: #### L [id number] ####Floor Assembler: KELLEY DURAND ([id number])[facility] [place] ([facility])[address] Eosinophils (Bld) [#/Vol] 0.0 10*3/uL Normal 0.0-0.5 [facility] Comment on above: Performed By: #### L [id number] ####Floor Assembler: KELLEY DURAND ([id number])[facility] [place] ([facility])[address] Eosinophils/100 WBC (Bld) 0.0 % Normal 0.0-6.0 [facility] Comment on above: Performed By: #### L [id number] ####Floor Assembler: KELLEY DURAND ([id number])[facility] [place] ([facility])[address] Erythrocyte distribution width (RBC) [Ratio] 20.5 % High 11.5-15.0 [facility] Comment on above: Performed By: #### L [id number] ####Floor Assembler: KELLEY DURAND ([id number])[facility] [place] ([facility])[address] Hematocrit (Bld) [Volume fraction] 40.3 % Normal 35.0-47.0 [facility] Comment on above: Performed By: #### L [id number] ####Floor Assembler: KELLEY DURAND ([id number])[facility] [place] [facility] Hemoglobin (Bld) [Mass/Vol] 12.7 g/dL Normal 11.7-16.0 [facility] Comment on above: Performed By: #### L [id number] ####Floor Assembler: KELLEY DURAND ([id number])[facility] [place] ([facility])[address] IMMATURE GRANS % 0.5 % Normal 0.0-2.0 [facility] Comment on above: Performed By: #### L [id number] ####Floor Assembler: KELLEY DURAND ([id number])[facility] ([facility])[address] IMMATURE GRANS ABSOLUTE 0.1 10*3/uL High <0.1 [facility] Comment on above: Performed By: #### L [id number] ####Floor Assembler: KELLEY DURAND ([id number])[facility] ([facility])[address] IPF 5 Normal [facility] Comment on above: Performed By: #### L [id number] ####Floor Assembler: KELLEY DURAND ([id number])[facility] Lymphocytes (Bld) [#/Vol] 1.3 10*3/uL Normal 1.0-4.3 [facility] Comment on above: Performed By: #### L [id number] ####Floor Assembler: KELLEY ARRINGTONTERRELL ([id number])[facility] Lymphocytes/100 WBC (Bld) 11.0 % Low 15.0-45.0 [facility] Comment on above: Performed By: #### L [id number] ####Floor Assembler: KELLEY LADARIUS ([id number])[facility] BA[facility] ([facility])[address] MCH (RBC) [Entitic mass] 24.0 pg Low 26.0-34.0 [facility] Comment on above: Performed By: #### L [id number] ####Floor Assembler: KELLEY LADARIUS ([id number])[facility] ([facility])[address] MCHC 31.5 % Normal 30.5-36.0 [facility] Comment on above: Performed By: #### L [id number] ####Floor Assembler: KELLEY DURAND ([id number])[facility] (SB[facility])[address] [place] [address] MCV (RBC) [Entitic vol] 76.2 fL Low 77.0-99.0 [facility] Comment on above: Performed By: #### L [id number] ####Floor Assembler: KELLEY DOMINICNikolaiTERRELL ([id number])[facility] ([facility])[address] Monocytes (Bld) [#/Vol] 0.6 10*3/uL Normal 0.0-0.9 [facility] Comment on above: Performed By: #### L [id number] ####Floor Assembler: KELLEY ARRINGTONTERRELL ([id number])[facility] [place] ([facility])[address] [place] [address] [place] Monocytes/100 WBC (Bld) 4.8 % Low 5.0-13.0 [facility] Comment on above: Performed By: #### L [id number] ####Floor Assembler: KELLEY ARRINGTONTERRELL ([id number])[facility] [place] ([facility])[address] NEUTROPHILS ABSOLUTE 9.5 10*3/uL High 1.8-7.5 [facility] Comment on above: Performed By: #### L [id number] ####Floor Assembler: KELLEY DURAND ([id number])[facility] [place] ([facility])[address] Neutrophils/100 WBC (Bld) 83.5 % High 38.0-82.0 [facility] Comment on above: Performed By: #### L [id number] ####Floor Assembler: KELLEY DURAND ([id number])[facility] [place] ([facility])[address] NRBC 0.0 /100 WBCs Normal 0.0-2.0 [facility] Comment on above: Performed By: #### L [id number] ####Floor Assembler: KELLEY DURAND ([id number])[facility] [place] ([facility])[address] Platelet mean volume (Bld) [Entitic vol] 11.9 fL Normal 9.0-12.7 [facility] Comment on above: Performed By: #### L [id number] ####Floor Assembler: KELLEY DURAND ([id number])[facility] [place] ([facility])[address] [place] [address] [place] Platelets (Bld) [#/Vol] 190 10*3/uL Normal 140-440 [facility] Comment on above: Performed By: #### L [id number] ####Floor Assembler: KELLEY DURAND ([id number])[facility] [place] ([facility])[address] [place] [address] [place] RBC (Bld) [#/Vol] 5.29 10*6/uL High 3.80-5.20 [facility] Comment on above: Performed By: #### L [id number] ####Floor Assembler: KELLEY DURAND ([id number])[facility] [place] ([facility])[address] [place] [address] [place] WBC (Bld) [#/Vol] 11.4 10*3/uL High 3.6-10.7 [facility] Comment on above: Performed By: #### L [id number] ####Floor Assembler: KELLEY DURAND ([id number])[facility] [place] ([facility])[address] COMPLETE URINALYSISon 2024 BACTERIA (#/HPF) IN URINE Moderate Abnormal Negative [facility] Comment on above: Performed By: #### L [id number] ####Floor Assembler: KELLEY DURAND ([id number])[facility] [place] ([facility])[address] BILIRUBIN, TOTAL PRESENCE IN URINE Negative Normal Negative [facility] Comment on above: Performed By: #### L [id number] ####Floor Assembler: KELLEY DURAND ([id number])[facility] [place] (SBHLAB)[address] Clarity (U) Clear Normal Clear [facility] Comment on above: Performed By: #### L [id number] ####Floor Assembler: KELLEY DURAND ([id number])[facility] ([facility])[address] Color (U) Yellow Normal Lt. Yellow [facility] Comment on above: Performed By: #### L [id number] ####Floor Assembler: KELLEY DURAND ([id number])[facility] [place] ([facility])[address] Glucose (U) [Mass/Vol] 200 mg/dL Abnormal Normal (<70) [facility] Comment on above: Performed By: #### L [id number] ####Floor Assembler: KELLEY DURAND ([id number])[facility] [place] ([facility])[address] HEMOGLOBIN PRESENCE IN URINE Negative Normal Negative [facility] Comment on above: Performed By: #### L [id number] ####Floor Assembler: KELLEY DURAND ([id number])[facility] [place] ([facility])[address] HYALINE CASTS (#/LPF) IN URINE SEDIMENT BY MICROSCOPY 0-2 Abnormal Negative [facility] Comment on above: Performed By: #### L [id number] ####Floor Assembler: KELLEY DURAND ([id number])[facility])[address] Ketones Ql (U) Negative Normal Negative [facility] Comment on above: Performed By: #### L [id number] ####Floor Assembler: KELLEY DURAND ([id number])[facility])[address] LEUKOCYTE ESTERASE PRESENCE IN URINE BY TEST STRIP 75 Caroline/uL Abnormal Negative [facility] Comment on above: Performed By: #### L [id number] ####Floor Assembler: KELLEY DURAND ([id number])[facility] ([facility])[address] MUCUS (#/LPF) IN URINE SEDIMENT Few Normal Negative [facility] Comment on above: Performed By: #### L [id number] ####Floor Assembler: KELLEY DURAND ([id number])[facility] ([facility])[address] [place] [address] NITRITE PRESENCE IN URINE Negative Normal Negative [facility] Comment on above: Performed By: #### L [id number] ####Floor Assembler: KELLEY DURAND ([id number])[facility] ([facility])[address] [place] [address] NON-SQUAMOUS EPITHELIAL (#/HPF) IN URINE 0-2 Abnormal Negative [facility] Comment on above: Performed By: #### L [id number] ####Floor Assembler: KELLEY DURAND ([id number])[facility] pH (U) 6.0 [pH] Normal 5.0-8.0 [facility] Comment on above: Performed By: #### L [id number] ####Floor Assembler: KELLEY DURAND ([id number])[facility] [place] ([facility])[address] Protein (U) [Mass/Vol] 20 mg/dL Abnormal Negative [facility] Comment on above: Performed By: #### L [id number] ####Floor Assembler: KELLEY DURAND ([id number])[facility] [place] ([facility])[address] [place] [address] [place] RBC (#/HPF) IN URINE SEDIMENT 0-2 Normal 0-2 [facility] Comment on above: Performed By: #### L [id number] ####Floor Assembler: KELLEY DURAND ([id number])[facility] [place] ([facility])[address] Specific gravity (U) [Rel density] 1.020 Normal 1.005-1.030 [facility] Comment on above: Performed By: #### L [id number] ####Floor Assembler: KELLEY DURAND ([id number])[facility] [place] ([facility])[address] SQUAMOUS EPITHELIAL CELLS (#/HPF) IN URINE SEDIMENT 0-2 Normal 3-5 [facility] Comment on above: Performed By: #### L [id number] ####Floor Assembler: KELLEY DURAND ([id number])[facility] [place] ([facility])[address] UROBILINOGEN (MG/DL) IN URINE Normal Normal Normal (0-1) [facility] Comment on above: Performed By: #### L [id number] ####Floor Assembler: KELLEY DURAND ([id number])[facility] [place] ([facility])[address] [place] [address] [place] WBC (LEUKOCYTE) (#/HPF) IN URINE SEDIMENT 0-2 Normal 0-5 [facility] Comment on above: Performed By: #### L [id number] ####Floor Assembler: KELLEY DURAND ([id number])[facility] [place] ([facility])[address] COMPREHENSIVE METABOLIC PANE [place] 11-11-2024 Albumin [Mass/Vol] 3.0 g/dL Low 3.4-4.8 [facility] Comment on above: Performed By: #### L AB99, LAB68, LAB17 ####Floor Assembler: KELLEY DURAND ([id number])[facility] ([facility])[address] ALP [Catalytic activity/Vol] 82 U/L Normal 40-150 [facility] Comment on above: Performed By: #### L AB99, LAB68, LAB17 ####Floor Assembler: KELLEY DURAND ([id number])[facility] ([facility])[address] ALT [Catalytic activity/Vol] 17 U/L Normal <30 [facility] Comment on above: Performed By: #### L AB99, LAB68, LAB17 ####Floor Assembler: KELLEY DURAND ([id number])[facility] ([facility])[address] Anion gap [Moles/Vol] 10 mmol/L Normal 3-13 [facility] Comment on above: Performed By: #### L AB99, LAB68, LAB17 ####Floor Assembler: KELLEY DURAND ([id number])[facility] ([facility])[address] AST [Catalytic activity/Vol] 35 U/L High <34 [facility] Comment on above: Performed By: #### L AB99, LAB68, LAB17 ####Floor Assembler: KELLEY DURAND ([id number])[facility] ([facility])[address] Bilirubin [Mass/Vol] 0.4 mg/dL Normal <1.2 [facility] Comment on above: Performed By: #### L AB99, LAB68, LAB17 ####Floor Assembler: KELLEY DURAND ([id number])[facility] [place] ([facility])[address] Calcium [Mass/Vol] 8.9 mg/dL Normal 8.8-10.0 [facility] Comment on above: Performed By: #### L AB99, LAB68, LAB17 ####Floor Assembler: KELLEY DURAND ([id number])[facility] [place] ([facility])[address] Chloride [Moles/Vol] 108 mmol/L High 98-107 [facility] Comment on above: Performed By: #### L AB99, LAB68, LAB17 ####Floor Assembler: KELLEY DURAND ([id number])[facility] [place] ([facility])[address] CO2 [Moles/Vol] 20 mmol/L Low 23-31 [facility] Comment on above: Performed By: #### Awais ROSS, LAB68, LAB17 ####Floor Assembler: KELLEY DURAND ([id number])[facility] [place] ([facility])[address] Creatinine [Mass/Vol] 1.47 mg/dL High 0.57-1.11 [facility] Comment on above: Performed By: #### L AB99, LAB68, LAB17 ####Floor Assembler: KELLEY DURAND ([id number])[facility] [place] ([facility])[address] [place] [address] [place] GLOMERULAR FILTRATION RATE ML/MIN/1.73 SQ M.PREDICTED 35.1 mL/min/1.73m*2 Low >60.0 [facility] Comment on above: Result Comment: Calc ulation based on the Chronic Kidney Disease Epidemiology Collaboration (CKD-EPI) equation refit without adjustment for race Performed By: #### L AB99, LAB68, LAB17 ####Floor Assembler: KELLEY DURAND ([id number])[facility] [place] ([facility])[address] [place] [address] [place] Glucose [Mass/Vol] 85 mg/dL Normal 82-115 [facility] Comment on above: Performed By: #### L AB99, LAB68, LAB17 ####Floor Assembler: KELLEY DURAND ([id number])[facility] ([facility])[address] Potassium [Moles/Vol] 5.1 mmol/L Normal 3.5-5.1 [facility] Comment on above: Result Comment: [facility] potassium values may be up to 0.5 mmol/L lower than serum values. Performed By: #### L AB99, LAB68, LAB17 ####Floor Assembler: KELLEY DURAND ([id number])[facility] [place] ([facility]AB)[address] Protein [Mass/Vol] 7.0 g/dL Normal 6.4-8.3 [facility] Comment on above: Performed By: #### L AB99, LAB68, LAB17 ####Floor Assembler: KELLEY DURAND ([id number])[facility] ([facility])[address] Sodium [Moles/Vol] 138 mmol/L Normal 136-145 [facility] Comment on above: Performed By: #### L AB99, LAB68, LAB17 ####Floor Assembler: KELLEY DURAND ([id number])[facility] ([facility])[address] Urea nitrogen [Mass/Vol] 36 mg/dL High 9-23 [facility] Comment on above: Performed By: #### L AB99, LAB68, LAB17 ####Floor Assembler: KELLEY DURAND ([id number])[facility] ([facility])[address] Comprehensive metabolic 1998 panelon 11-11-2024 Albumin [Mass/Vol] 3 g/dL Low 3.4 - 4.8 g/dL [facility] ALP [Catalytic activity/Vol] 82 U/L 40 - 150 U/L [facility] ALT [Catalytic activity/Vol] 17 U/L NINF - 30 U/L [facility] Anion gap [Moles/Vol] 10 mmol/L 3 - 13 mmol/L [facility] AST [Catalytic activity/Vol] 35 U/L High NINF - 34 U/L [facility] Bilirubin [Mass/Vol] 0.4 mg/dL NINF - 1.2 mg/dL [facility] Calcium [Mass/Vol] 8.9 mg/dL 8.8 - 10. 0 mg/dL [facility] Chloride [Moles/Vol] 108 mmol/L High 98 - 10 7 mmol/L [facility] CO2 [Moles/Vol] 20 mmol/L Low 23 - 31 mmol/L [facility] Creatinine [Mass/Vol] 1.47 mg/dL High 0.57 - 1.11 mg/dL [facility] GFR/1.73 sq M.predicted (S/P/Bld) [Vol rate/Area] 35.1 mL/min Low - PINF [facility] Comment on above: Calculation based on the Chronic Kidney Disease Epidemiology Collaboration (CKD-EPI) equation refit without adjustment for race Glucose [Mass/Vol] 85 mg/dL 82 - 115 mg/dL [facility] Interpretation and review of laboratory results Abnormal [facility] Potassium [Moles/Vol] 5.1 mmol/L 3.5 - 5.1 mmol/L [facility] Comment on above: Plasma potassium marialuisa ues may be up to 0.5 mmol/L lower than serum values. Protein [Mass/Vol] 7 g/dL 6.4 - 8.3 g/dL [facility] Sodium [Moles/Vol] 138 mmol/L 136 - 145 mmol/L [facility] Urea nitrogen [Mass/Vol] 36 mg/dL High 9 - 23 mg/dL [facility] ED Nursing Noteon 11-11-2024 ED Nursing Note Pts oxygen dropped while pt was sleeping to 88%, pts placed on 3 L NC Normal [facility] ED Nursing Note Family grabbed this RN and stated pts speech was slurred, RN at bedside to evaluate and speech doesn't appear slurred, pt does appear drowsy, Dr. Adams notified Normal [facility] ED Nursing Note Pt reports from home for N/V, family states pt has an active GI bleed but is not a candidate for surgery. Pt alert and oriented x 2 (baseline per EMS) hx dementia Normal [facility] ED Nursing Note Dr. Adams at bedside Normal [facility] ED Nursing Note RN reached out to Dr Keya Adams about ordering CT head due to pt being more confused per family. Family stated around noon today because started to lean to the right and become more confused then baseline Normal [facility] ED Provider Noteon ED Provider Note Emergency Department Encounter Pt Name: Margarita Betancourt Birthdate 1940 Date of evaluation: 11/11/2024 Provider: Marissa Angulo MD CHIEF COMPLAINT Chief Complaint Patient presents with ? Vomiting ? Diarrhea HISTORY OF PRESENT ILLNESS HPI Margarita Betancourt is a 84 y.o. female with history that includes dementia, diabetes, HTN, asthma, DVT (not on blood thinners), presenting to ED for vomiting, coffee ground emesis, melena, and confusion. History predominantly given by daughter at bedside. Has a history of GI bleeding not aggressively worked up due to age. Nursing Notes were reviewed. Past Medical History: Diagnosis Date ? Asthma ? Blood clot in vein ? Dementia (CMS/HCC) ? Depression ? Diabetes mellitus (CMS/HCC) ? 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 Hypertension REVIEW OF SYSTEMS Several elements of the ROS reviewed and otherwise acutely negative except as in the HPI. PHYSICAL EXAM ED Triage Vitals [11/11/242038] Temp Heart Rate Resp BP 37.3 ?C (99.1 ?F) 86 16 (!) 151/65 SpO2 Temp src Heart Rate Source Patient Position 94 % -- -- -- BP Location FiO2 (%) -- -- Physical Exam Constitutional: Well-developed and well-nourished. No distress. HENT: Mucous membranes moist Cardiovascular: Regular rhythm. Pulmonary/Chest: Effort normal with no conversational dyspnea. Clear to auscultation bilaterally. Abdominal: Soft. No tenderness. No distension or guarding. Musculoskeletal: No edema and no calf tenderness to palpation. Skin: Skin is warm and dry. Neuro: Strength 5/5 with bilateral shoulder extension and bilateral hip flexion. Sensation to light touch intact in bilateral upper and lower extremities. No facial asymmetry. Psychiatric: Withdrawn. Disoriented. EMERGENCY DEPARTMENT COURSE and DIFFERENTIAL DIAGNOSIS/MDM: Patient presenting with GI bleeding, painless therefore no CT abdomen pelvis was ordered. Seems like this is a longstanding issue and her H&H is normal. Of concern however is the confusion and I am unclear as to what may be causing this. Urinalysis was obtained and was not convincing for UTI. I hear no abnormal lung sounds to warrant chest x-ray as I do not suspect pneumonia. There is no uremia or liver dysfunction. Her electrolytes are not the culprit. I discussed case with Dr. Adams who accepted the patient for admission for further workup and management. Diagnoses as of 11/12/24 1229 Confusion Gastrointestinal hemorrhage, unspecified gastrointestinal hemorrhage type ED medications managed: IV protonix Chronic conditions and social determinants of health affecting care: Chronic GI bleed, geriatric DISPOSITION/PLAN Admit Marissa Angulo MD Emergency Medicine Marissa Angulo MD 11/12/24 1229 Normal [facility] FERRITINon 11-11-2024 Ferritin [Mass/Vol] 27 ng/mL Normal - [facility] Comment on above: Result Comment: GAVIN Tucker COMMENTS: Ferritin levels below 10 ng/mL have been reported as indicative of iron deficiency anemia. Performed By: #### L AB99, LAB68, LAB17 ####Floor Assembler: KELLEY DURAND ([id number])[facility] ([facility])[address] Ferritin [Mass/Vol]on 2024 Interpretation and review of laboratory results Normal [facility] Ferritin levels belo w 10 ng/mL have been reported as indicative of iron deficiency anemia. [facility] IRON AND TIBCon 11-11-2024 IRON BINDING CAPACITY 236 ug/dL Low 250-450 [facility] Comment on above: Performed By: #### L AB829 ####Floor Assembler: KELLEY DURAND ([id number])[facility] ([facility])[address] IRON SATURATION 8.5 % Low 20.0-50.0 [facility] Comment on above: Performed By: #### L AB829 ####Floor Assembler: KELLEY DURAND ([id number])[facility] ([facility])[address] IRON, TOTAL 20 ug/dL Low 50-170 [facility] Comment on above: Performed By: #### L AB829 ####Floor Assembler: KELLEY DURAND ([id number])[facility] ([facility])[address] [place] [address] Iron and Iron binding capaci ty panelon 11-11-2024 Interpretation and review of laboratory results Abnormal [facility] Iron [Mass/Vol] 20 ug/dL Low 50 - 170 ug/dL [facility] Iron binding capacity [Mass/Vol] 236 ug/dL Low 250 - 450 ug/dL [facility] Iron saturation [Mass fraction] 8.5 % Low 20.0 - 50.0 % [facility] LIPASEon 11-11-2024 Lipase [Catalytic activity/Vol] 6 U/L Normal <55 [facility] Comment on above: Performed By: #### L AB99, LAB68, LAB17 ####Floor Assembler: KELLEY DURAND ([id number])[facility] ([facility])[address] [place] [address] Laboratory - Chemistry and C hemistry - challengeon 11-11-2024 Ferritin [Mass/Vol] 27 ng/mL 5 - 204 ng/mL [facility] Lipase [Catalytic activity/Vol] 6 U/L NINF - 55 U/L [facility] Lipase [Catalytic activity/V ol]on 11-11-2024 Interpretation and review of laboratory results Normal [facility] No Panel Informationon 11-11 [facility] Urinalysis complete panel (U )Ordered By: Digna Kelly on 11-11-2024 Bacteria LM.HPF (Urine sed) [#/Area] Moderate Abnormal Negative /HPF [facility] Bilirubin Ql (U) Negative Negative mg/dL [facility] Clarity (U) Clear Clear [facility] Color (U) Yellow Lt. Yellow [facility] Epithelial cells.squamous LM.HPF (Urine sed) [#/Area] 0-2 [facility]alt h Glucose Ql (U) 200 mg/dL Abnormal Normal (<70) [facility] Hemoglobin Ql (U) Negative Negative mg/dL [facility] Hyaline casts Auto (Urine sed) [#/Area] 0-2 Abnormal Negative /LPF [facility] Interpretation and review of laboratory results Abnormal [facility] Ketones (U) [Mass/Vol] Negative Negat naseem mg/dL [facility] Leukocyte esterase Test strip Ql (U) 75 Abnormal Negative Caroline/uL [facility] Mucus LM.HPF (Urine sed) [#/Area] Few Negative /LPF [facility] Nitrite Ql (U) Negative Negative [facility] th Non-Squamous Epithalial Cells, Urine 0-2 Abnormal Negative /HPF [facility] pH (U) 6.0 [pH] 5.0 - 8.0 pH [facility] Protein (U) [Mass/Vol] 20 mg/dL Abnormal Negative [facility] RBC LM.HPF (Urine sed) [#/Area] 0-2 [facility] Specific gravity (U) [Rel density] 1.02 1.005 - 1.030 [facility] Urobilinogen (U) [Mass/Vol] Normal Normal (0-1) mg/dL [facility] WBC LM.HPF (Urine sed) [#/Area] 0-2 [facility] CNPAriane 09-09-2024 LEAH Telephone (FPDOYL) MARGARITA BETANCOURT ([id number]) 1940 F Date Time Provider Department 09/09/24 JONN KRISHNAMURTHY FPDOYL During your visit today, we recorded the following information about you: Lily Cook LPN 09/09/2024 9:54 AM Signed Pt dil called and left message that Margarita Right eye is now red - like a blood vessel burst. Pt has no change in vision. No pain in the eye. No recent bp readings on pt. I instructed to take bp and to contact her eye doctor to see if they would like to see her regarding this. Allergies As of Date: 09/09/2024 Noted Allergy Reaction MEPERIDINE 07/01/2016 16 - Unknown 11 - Vomiting Date Reviewed: 06/11/2024 Reviewed by: Jaz Dawkins LPN - Fully Assessed Prescriptions as of 09/09/2024 - oxyCODONE-acetaminophe n (PERCOCET) 5-325 mg tablet Take 1 tablet by mouth every 4 hours as needed for pain for up to 16 doses. - mirtazapine (REMERON) 45 mg tablet Take 1 tablet by mouth daily at bedtime. - nitrofurantoin monohydrate and macrocrystal (MACROBID) 100 mg capsule Take 1 capsule by mouth two times a day. - ondansetron orally disintegrating (ZOFRAN ODT) 4 mg disintegrating tablet Take 1 tablet by mouth every 8 hours as needed for nausea/vomiting. - lisinopril (ZESTRIL) 20 mg tablet Take 1 tablet by mouth once daily. - insulin lispro (HUMALOG KWIKPEN INSULIN) 100 unit/mL INJECT 14 UNITS SUBCUTANEOUSLY THREE TIMES DAILY BEFORE MEALS. - omeprazole (PRILOSEC) 40 mg capsule Take 1 capsule by mouth two times a day. - insulin glargine (LANTUS SOLOSTAR U-100 INSULIN) 100 unit/mL (3 mL) Inject 18 Units subcutaneously daily at bedtime. - metoprolol succinate ER (TOPROL XL) 50 mg 24 hr tablet Take 1 tablet by mouth once daily. - gabapentin (NEURONTIN) 300 mg capsule Take 1 capsule by mouth two times a day. - ELIQUIS 5 mg tab(s) Take 1 tablet by mouth every afternoon. - phenazopyridine HCl (AZO ORAL) Take by mouth. Gummies OTC - hydrOXYzine pamoate (VISTARIL) 25 mg capsule Take 1-2 capsules by mouth daily at bedtime. - Magnesium 30 mg tablet Take 30 mg by mouth. daily - POTASSIUM-99 ORAL Take by mouth. - docusate sodium (COLACE) 100 mg capsule Take 1 capsule by mouth once daily as needed for constipation. - ipratropium-albuterol (DUONEB) 0.5 mg-3 mg(2.5 mg base)/3 mL nebu USE 1 VIAL IN NEBULIZER 4 TIMES DAILY - MEDICATION, NON-DATABASE Co q 10 b complex Calcium AND vit d - QUEtiapine (SEROQUEL) 25 mg tablet TAKE 1/2 TABLET AT BEDTIME SCHEDULED, AND TAKE 1/2 TABLET DAILY NEEDED - MV with Tql-Qaopujyf-Cxddgh (CENTRUM SILVER) 0.4-300-250 mg-mcg-mcg tab Centrum Silver Tablet Centrum Silver Tablet Active 1 TAB DAILY December 23, 2015 3:40pm 12-23-2015 [facility] ([id number]) - PRODIGY LANCETS MISC four times daily. - blood sugar diagnostic (PRODIGY NO CODING) test strip four times daily. Meds Comments as of 10/08/2021: Problem List As Of Date 09/09/2024 Noted Resolved Insulin-treated type 2 diabetes mellitus (HCC) * Hyperlipidemia, mixed [E78.2] Screening for thyroid disorder [Z13.29] 12/14/2020 Generalized arthritis [M19.90] 12/14/2020 Recurrent UTI (urinary tract infection) [N39.0] 04/29/2021 Late onset Alzheimer's dementia with behavioral*04/29/2021 Essential (primary) hypertension [I10] 02/02/2022 Gastro-esophageal reflux disease without esopha*02/02/2022 Chronic insomnia [F51.04] 01/23/2023 Primary osteoarthritis of both hips [M16.0] 01/23/2023 Primary osteoarthritis of right knee [M17.11] 01/23/2023 Obesity, Class I, BMI 30-34.9 [E66.811] 01/23/2023 Lumbar spondylosis [M47.816] 07/11/2023 Spinal stenosis of lumbar region without neurog*04/21/2024 Recurrent falls [R29.6] 04/21/2024 Spinal stenosis of cervical region [M48.02] 05/29/2024 Encounter Status:Closed by LILY COOK on 09/09/24 [facility] [place] 08-14-2024 [place] Telephone (GREGYL) MARGARITA BETANCOURT ([id number]) 1940 F Date Time Provider Department 08/14/24 JONN KRISHNAMURTHY FPDOYL During your visit today, we recorded the following information about you: Alexandria Addison 08/14/2024 2:43 PM Signed Pt's Oxycodone was sent to a pharmacy that pt does not use. Pt needs this sent to the [facility] on [address] Alexandria Addison Jonn Krishnamurthy, DO 08/15/2024 9:17 AM Signed sent Allergies As of Date: 08/14/2024 Noted Allergy Reaction MEPERIDINE 07/01/2016 16 - Unknown 11 - Vomiting Date Reviewed: 06/11/2024 Reviewed by: Jaz Dawkins LPN - Fully Assessed Reason for Visit: Medication Problem [65] Primary Visit Diagnosis:Acute midline low back pain without sciatica [M54.50] Order(s):oxyCODONE-eliseo taminophen (PERCOCET) 5-325 mg tabletTake 1 tablet by mouth every 4 hours as needed for pain for up to 7 days.Disp: 16 tabletRfl: 0 Prescriptions as of 08/16/2024 - oxyCODONE-acetaminophe n (PERCOCET) 5-325 mg tablet Take 1 tablet by mouth every 4 hours as needed for pain for up to 7 days. - oxyCODONE-acetaminophe n (PERCOCET) 5-325 mg tablet Take 1 tablet by mouth every 4 hours as needed for pain for up to 16 doses. - mirtazapine (REMERON) 45 mg tablet Take 1 tablet by mouth daily at bedtime. - nitrofurantoin monohydrate and macrocrystal (MACROBID) 100 mg capsule Take 1 capsule by mouth two times a day. - ondansetron orally disintegrating (ZOFRAN ODT) 4 mg disintegrating tablet Take 1 tablet by mouth every 8 hours as needed for nausea/vomiting. - lisinopril (ZESTRIL) 20 mg tablet Take 1 tablet by mouth once daily. - insulin lispro (HUMALOG KWIKPEN INSULIN) 100 unit/mL INJECT 14 UNITS SUBCUTANEOUSLY THREE TIMES DAILY BEFORE MEALS. - omeprazole (PRILOSEC) 40 mg capsule Take 1 capsule by mouth two times a day. - insulin glargine (LANTUS SOLOSTAR U-100 INSULIN) 100 unit/mL (3 mL) Inject 18 Units subcutaneously daily at bedtime. - metoprolol succinate ER (TOPROL XL) 50 mg 24 hr tablet Take 1 tablet by mouth once daily. - gabapentin (NEURONTIN) 300 mg capsule Take 1 capsule by mouth two times a day. - ELIQUIS 5 mg tab(s) Take 1 tablet by mouth every afternoon. - phenazopyridine HCl (AZO ORAL) Take by mouth. Gummies OTC - hydrOXYzine pamoate (VISTARIL) 25 mg capsule Take 1-2 capsules by mouth daily at bedtime. - Magnesium 30 mg tablet Take 30 mg by mouth. daily - POTASSIUM-99 ORAL Take by mouth. - docusate sodium (COLACE) 100 mg capsule Take 1 capsule by mouth once daily as needed for constipation. - ipratropium-albuterol (DUONEB) 0.5 mg-3 mg(2.5 mg base)/3 mL nebu USE 1 VIAL IN NEBULIZER 4 TIMES DAILY - MEDICATION, NON-DATABASE Co q 10 b complex Calcium AND vit d - QUEtiapine (SEROQUEL) 25 mg tablet TAKE 1/2 TABLET AT BEDTIME SCHEDULED, AND TAKE 1/2 TABLET DAILY NEEDED - MV with Vur-Xuxtedog-Hbomvn (CENTRUM SILVER) 0.4-300-250 mg-mcg-mcg tab Centrum Silver Tablet Centrum Silver Tablet Active 1 TAB DAILY December 23, 2015 3:40pm 12-23-2015 [facility] ([id number]) - PRODIGY LANCETS MISC four times daily. - blood sugar diagnostic (PRODIGY NO CODING) test strip four times daily. Meds Comments as of 10/08/2021: Problem List As Of Date 08/14/2024 Noted Resolved Insulin-treated type 2 diabetes mellitus (HCC) * Hyperlipidemia, mixed [E78.2] Screening for thyroid disorder [Z13.29] 12/14/2020 Generalized arthritis [M19.90] 12/14/2020 Recurrent UTI (urinary tract infection) [N39.0] 04/29/2021 Late onset Alzheimer's dementia with behavioral*04/29/2021 Essential (primary) hypertension [I10] 02/02/2022 Gastro-esophageal reflux disease without esopha*02/02/2022 Chronic insomnia [F51.04] 01/23/2023 Primary osteoarthritis of both hips [M16.0] 01/23/2023 Primary osteoarthritis of right knee [M17.11] 01/23/2023 Obesity, Class I, BMI 30-34.9 [E66.811] 01/23/2023 Lumbar spondylosis [M47.816] 07/11/2023 Spinal stenosis of lumbar region without neurog*04/21/2024 Recurrent falls [R29.6] 04/21/2024 Spinal stenosis of cervical region [M48.02] 05/29/2024 Prescriptions ordered this encounter Disp Refills Start End OXYCODONE-ACETAMINOPHE N 5 MG-325 MG * 16 t* 0 08/15/2024 08/22/2024 Route: ORAL Sig: Take 1 tablet by mouth every 4 hours as needed for pain for up to 7 days. Encounter Status:Closed by ALEXANDRIA ADDISON on 08/16/24 [facility] 06-18-2024 [facility] Telephone (NEAGCLM) MARGARITA BETANCOURT ([id number]) 1940 F Date Time Provider Department 06/18/24 [facility] During your visit today, we recorded the following information about you: Bijan Underwood 06/18/2024 9:37 AM Signed Called the care associate answered she said this appointment was supposed to be canceled by the same person who canceled her MRI . Allergies As of Date: 06/18/2024 Noted Allergy Reaction MEPERIDINE 07/01/2016 16 - Unknown 11 - Vomiting Date Reviewed: 06/11/2024 Reviewed by: Jaz Dawkins LPN - Fully Assessed Reason for Visit: No Show [1558] Prescriptions as of 06/18/2024 - ciprofloxacin HCl (CIPRO) 250 mg tablet Take 1 tablet by mouth two times a day for 7 days. - nitrofurantoin monohydrate and macrocrystal (MACROBID) 100 mg capsule Take 1 capsule by mouth two times a day. - sulfamethoxazole-trime thoprim (BACTRIM DS) 800-160 mg per tablet Take 1 tablet by mouth two times a day for 5 days. - ondansetron orally disintegrating (ZOFRAN ODT) 4 mg disintegrating tablet Take 1 tablet by mouth every 8 hours as needed for nausea/vomiting. - oxyCODONE-acetaminophe n (PERCOCET) 5-325 mg tablet Take 1 tablet by mouth once daily as needed for pain for up to 16 days. - lisinopril (ZESTRIL) 20 mg tablet Take 1 tablet by mouth once daily. - insulin lispro (HUMALOG KWIKPEN INSULIN) 100 unit/mL INJECT 14 UNITS SUBCUTANEOUSLY THREE TIMES DAILY BEFORE MEALS. - omeprazole (PRILOSEC) 40 mg capsule Take 1 capsule by mouth two times a day. - insulin glargine (LANTUS SOLOSTAR U-100 INSULIN) 100 unit/mL (3 mL) Inject 18 Units subcutaneously daily at bedtime. - metoprolol succinate ER (TOPROL XL) 50 mg 24 hr tablet Take 1 tablet by mouth once daily. - gabapentin (NEURONTIN) 300 mg capsule Take 1 capsule by mouth two times a day. - ELIQUIS 5 mg tab(s) Take 1 tablet by mouth every afternoon. - mirtazapine (REMERON) 15 mg tablet Take 1 tablet by mouth daily at bedtime for 7 days, THEN 2 tablets daily at bedtime for 7 days, THEN 3 tablets daily at bedtime. - phenazopyridine HCl (AZO ORAL) Take by mouth. Gummies OTC - hydrOXYzine pamoate (VISTARIL) 25 mg capsule Take 1-2 capsules by mouth daily at bedtime. - Magnesium 30 mg tablet Take 30 mg by mouth. daily - POTASSIUM-99 ORAL Take by mouth. - docusate sodium (COLACE) 100 mg capsule Take 1 capsule by mouth once daily as needed for constipation. - ipratropium-albuterol (DUONEB) 0.5 mg-3 mg(2.5 mg base)/3 mL nebu USE 1 VIAL IN NEBULIZER 4 TIMES DAILY - MEDICATION, NON-DATABASE Co q 10 b complex Calcium AND vit d - QUEtiapine (SEROQUEL) 25 mg tablet TAKE 1/2 TABLET AT BEDTIME SCHEDULED, AND TAKE 1/2 TABLET DAILY NEEDED - MV with Imp-Phporadp-Vprxbl (CENTRUM SILVER) 0.4-300-250 mg-mcg-mcg tab Centrum Silver Tablet Centrum Silver Tablet Active 1 TAB DAILY December 23, 2015 3:40pm 12-23-2015 [facility] ([id number]) - PRODIGY LANCETS MISC four times daily. - blood sugar diagnostic (PRODIGY NO CODING) test strip four times daily. Meds Comments as of 10/08/2021: Problem List As Of Date 06/18/2024 Noted Resolved Insulin-treated type 2 diabetes mellitus (HCC) * Hyperlipidemia, mixed [E78.2] Screening for thyroid disorder [Z13.29] 12/14/2020 Generalized arthritis [M19.90] 12/14/2020 Recurrent UTI (urinary tract infection) [N39.0] 04/29/2021 Late onset Alzheimer's dementia with behavioral*04/29/2021 Essential (primary) hypertension [I10] 02/02/2022 Gastro-esophageal reflux disease without esopha*02/02/2022 Chronic insomnia [F51.04] 01/23/2023 Primary osteoarthritis of both hips [M16.0] 01/23/2023 Primary osteoarthritis of right knee [M17.11] 01/23/2023 Obesity, Class I, BMI 30-34.9 [E66.811] 01/23/2023 Lumbar spondylosis [M47.816] 07/11/2023 Spinal stenosis of lumbar region without neurog*04/21/2024 Recurrent falls [R29.6] 04/21/2024 Spinal stenosis of cervical region [M48.02] 05/29/2024 Encounter Status:Closed by BIJAN UNDERWOOD on 06/18/[address] [facility] Bacteria identified Cx Nom ( U)Ordered By: Christine Okeefe on 06-15-2024 Interpretation and review of laboratory results Abnormal [facility] URINE CULTUREOrdered By: Jonel Okeefe on 06-15-2024 Bacteria identified Cx Nom (U) >=100,000 CFU/ml Escherichia coli Abnormal [facility] Bacteria identified Cx Nom (U) <10,000 CFU/ml Normal urogenital cole [facility] [place] 06-14-2024 [place] Telephone (FPDOYL) MARGARITA BETANCOURT ([id number]) 1940 F Date Time Provider Department 06/14/24 JONN KRISHNAMURTHYYL During your visit today, we recorded the following information about you: Christine Toscano LPN 06/14/2024 11:10 AM Signed ----- Message from Jonn Krishnamurthy DO sent at 06/14/2024 11:02 AM EDT ----- +For uti macrodantin sent Christine Toscano LPN 06/14/2024 11:17 AM Signed Spoke with Estefany and advised Allergies As of Date: 06/14/2024 Noted Allergy Reaction MEPERIDINE 07/01/2016 16 - Unknown 11 - Vomiting Date Reviewed: 06/11/2024 Reviewed by: Jaz Dawkins LPN - Fully Assessed Prescriptions as of 06/14/2024 - nitrofurantoin monohydrate and macrocrystal (MACROBID) 100 mg capsule Take 1 capsule by mouth two times a day. - sulfamethoxazole-trime thoprim (BACTRIM DS) 800-160 mg per tablet Take 1 tablet by mouth two times a day for 5 days. - ondansetron orally disintegrating (ZOFRAN ODT) 4 mg disintegrating tablet Take 1 tablet by mouth every 8 hours as needed for nausea/vomiting. - oxyCODONE-acetaminophe n (PERCOCET) 5-325 mg tablet Take 1 tablet by mouth once daily as needed for pain for up to 16 days. - lisinopril (ZESTRIL) 20 mg tablet Take 1 tablet by mouth once daily. - insulin lispro (HUMALOG KWIKPEN INSULIN) 100 unit/mL INJECT 14 UNITS SUBCUTANEOUSLY THREE TIMES DAILY BEFORE MEALS. - omeprazole (PRILOSEC) 40 mg capsule Take 1 capsule by mouth two times a day. - insulin glargine (LANTUS SOLOSTAR U-100 INSULIN) 100 unit/mL (3 mL) Inject 18 Units subcutaneously daily at bedtime. - metoprolol succinate ER (TOPROL XL) 50 mg 24 hr tablet Take 1 tablet by mouth once daily. - gabapentin (NEURONTIN) 300 mg capsule Take 1 capsule by mouth two times a day. - ELIQUIS 5 mg tab(s) Take 1 tablet by mouth every afternoon. - mirtazapine (REMERON) 15 mg tablet Take 1 tablet by mouth daily at bedtime for 7 days, THEN 2 tablets daily at bedtime for 7 days, THEN 3 tablets daily at bedtime. - phenazopyridine HCl (AZO ORAL) Take by mouth. Gummies OTC - hydrOXYzine pamoate (VISTARIL) 25 mg capsule Take 1-2 capsules by mouth daily at bedtime. - Magnesium 30 mg tablet Take 30 mg by mouth. daily - POTASSIUM-99 ORAL Take by mouth. - docusate sodium (COLACE) 100 mg capsule Take 1 capsule by mouth once daily as needed for constipation. - ipratropium-albuterol (DUONEB) 0.5 mg-3 mg(2.5 mg base)/3 mL nebu USE 1 VIAL IN NEBULIZER 4 TIMES DAILY - MEDICATION, NON-DATABASE Co q 10 b complex Calcium AND vit d - QUEtiapine (SEROQUEL) 25 mg tablet TAKE 1/2 TABLET AT BEDTIME SCHEDULED, AND TAKE 1/2 TABLET DAILY NEEDED - MV with Uwo-Tkjvesrm-Kuigjx (CENTRUM SILVER) 0.4-300-250 mg-mcg-mcg tab Centrum Silver Tablet Centrum Silver Tablet Active 1 TAB DAILY December 23, 2015 3:40pm 12-23-2015 [facility] ([id number]) - PRODIGY LANCETS MISC four times daily. - blood sugar diagnostic (PRODIGY NO CODING) test strip four times daily. Meds Comments as of 10/08/2021: Problem List As Of Date 06/14/2024 Noted Resolved Insulin-treated type 2 diabetes mellitus (HCC) * Hyperlipidemia, mixed [E78.2] Screening for thyroid disorder [Z13.29] 12/14/2020 Generalized arthritis [M19.90] 12/14/2020 Recurrent UTI (urinary tract infection) [N39.0] 04/29/2021 Late onset Alzheimer's dementia with behavioral*04/29/2021 Essential (primary) hypertension [I10] 02/02/2022 Gastro-esophageal reflux disease without esopha*02/02/2022 Chronic insomnia [F51.04] 01/23/2023 Primary osteoarthritis of both hips [M16.0] 01/23/2023 Primary osteoarthritis of right knee [M17.11] 01/23/2023 Obesity, Class I, BMI 30-34.9 [E66.811] 01/23/2023 Lumbar spondylosis [M47.816] 07/11/2023 Spinal stenosis of lumbar region without neurog*04/21/2024 Recurrent falls [R29.6] 04/21/2024 Spinal stenosis of cervical region [M48.02] 05/29/2024 Encounter Status:Closed by CHRISTINE TOSCANO on 06/14/24 [facility] 06-13-2024 [place] Telephone (FPDOYL) MARGARITA BETANCOURT ([id number]) 1940 F Date Time Provider Department 06/13/24 JONN KRISHNAMURTHY During your visit today, we recorded the following information about you: Christine Toscano LPN 06/13/2024 4:29 PM Signed Called and spoke to Estefany. Advised Dr. Krishnamurthy sent Bactrim DS to the pharmacy for the patient. Allergies As of Date: 06/13/2024 Noted Allergy Reaction MEPERIDINE 07/01/2016 16 - Unknown 11 - Vomiting Date Reviewed: 06/11/2024 Reviewed by: Jaz Dawkins LPN - Fully Assessed Order(s):sulfamethoxaz ole-trimethoprim (BACTRIM DS) 800-160 mg per tabletTake 1 tablet by mouth two times a day for 5 days.Disp: 10 tabletRfl: 0 Prescriptions as of 06/13/2024 - sulfamethoxazole-trime thoprim (BACTRIM DS) 800-160 mg per tablet Take 1 tablet by mouth two times a day for 5 days. - ondansetron orally disintegrating (ZOFRAN ODT) 4 mg disintegrating tablet Take 1 tablet by mouth every 8 hours as needed for nausea/vomiting. - oxyCODONE-acetaminophe n (PERCOCET) 5-325 mg tablet Take 1 tablet by mouth once daily as needed for pain for up to 16 days. - lisinopril (ZESTRIL) 20 mg tablet Take 1 tablet by mouth once daily. - insulin lispro (HUMALOG KWIKPEN INSULIN) 100 unit/mL INJECT 14 UNITS SUBCUTANEOUSLY THREE TIMES DAILY BEFORE MEALS. - omeprazole (PRILOSEC) 40 mg capsule Take 1 capsule by mouth two times a day. - insulin glargine (LANTUS SOLOSTAR U-100 INSULIN) 100 unit/mL (3 mL) Inject 18 Units subcutaneously daily at bedtime. - metoprolol succinate ER (TOPROL XL) 50 mg 24 hr tablet Take 1 tablet by mouth once daily. - gabapentin (NEURONTIN) 300 mg capsule Take 1 capsule by mouth two times a day. - ELIQUIS 5 mg tab(s) Take 1 tablet by mouth every afternoon. - mirtazapine (REMERON) 15 mg tablet Take 1 tablet by mouth daily at bedtime for 7 days, THEN 2 tablets daily at bedtime for 7 days, THEN 3 tablets daily at bedtime. - phenazopyridine HCl (AZO ORAL) Take by mouth. Gummies OTC - hydrOXYzine pamoate (VISTARIL) 25 mg capsule Take 1-2 capsules by mouth daily at bedtime. - Magnesium 30 mg tablet Take 30 mg by mouth. daily - POTASSIUM-99 ORAL Take by mouth. - docusate sodium (COLACE) 100 mg capsule Take 1 capsule by mouth once daily as needed for constipation. - ipratropium-albuterol (DUONEB) 0.5 mg-3 mg(2.5 mg base)/3 mL nebu USE 1 VIAL IN NEBULIZER 4 TIMES DAILY - MEDICATION, NON-DATABASE Co q 10 b complex Calcium AND vit d - QUEtiapine (SEROQUEL) 25 mg tablet TAKE 1/2 TABLET AT BEDTIME SCHEDULED, AND TAKE 1/2 TABLET DAILY NEEDED - MV with Dob-Qbvtysit-Jrnolt (CENTRUM SILVER) 0.4-300-250 mg-mcg-mcg tab Centrum Silver Tablet Centrum Silver Tablet Active 1 TAB DAILY December 23, 2015 3:40pm 12-23-2015 [facility] ([id number]) - PRODIGY LANCETS MISC four times daily. - blood sugar diagnostic (PRODIGY NO CODING) test strip four times daily. Meds Comments as of 10/08/2021: Problem List As Of Date 06/13/2024 Noted Resolved Insulin-treated type 2 diabetes mellitus (HCC) * Hyperlipidemia, mixed [E78.2] Screening for thyroid disorder [Z13.29] 12/14/2020 Generalized arthritis [M19.90] 12/14/2020 Recurrent UTI (urinary tract infection) [N39.0] 04/29/2021 Late onset Alzheimer's dementia with behavioral*04/29/2021 Essential (primary) hypertension [I10] 02/02/2022 Gastro-esophageal reflux disease without esopha*02/02/2022 Chronic insomnia [F51.04] 01/23/2023 Primary osteoarthritis of both hips [M16.0] 01/23/2023 Primary osteoarthritis of right knee [M17.11] 01/23/2023 Obesity, Class I, BMI 30-34.9 [E66.811] 01/23/2023 Lumbar spondylosis [M47.816] 07/11/2023 Spinal stenosis of lumbar region without neurog*04/21/2024 Recurrent falls [R29.6] 04/21/2024 Spinal stenosis of cervical region [M48.02] 05/29/2024 Prescriptions ordered this encounter Disp Refills Start End SULFAMETHOXAZOLE 800 MG-TRIMETHOPRIM* 10 t* 0 06/13/2024 06/18/2024 Route: ORAL Sig: Take 1 tablet by mouth two times a day for 5 days. Encounter Status:Closed by CHRISTINE TOSCANO on 06/13/[address] [facility] Bacteria Ur Culton Bacteria identified Cx Nom (U) ORGANISM ID: 1 >=100,000 CFU/ml Escherichia coli ORGANISM ID: 3 <10,000 CFU/ml Normal urogenital cole ORGANISM ID: 1 (ESCHERICHIA COLI) -- ANTIBIOTIC INTERPRETATION RAJI STATUS REFERENCE RANGE -- Ampicillin R >16 F Susceptible <=8 , Intermediate >8 , Resistant >16 Cefazolin S 4 F Susceptible 0-16 , Intermediate <0 or >16 , Resistant >16 For uncomplicated urinary tract infections, cefazolin results can be used to predict susceptibility or resistance to cephalexin. Ceftriaxone S <=1 F Susceptible <=1 , Intermediate >1 , Resistant >=4 Cefepime S <=1 F Susceptible <=2 , Susceptible-Dose Dependent >2 , Resistant >=16 Ertapenem S <=0.25 F Susceptible <=0.5 , Intermediate >.5 , Resistant >1 Meropenem S <=0.5 F Susceptible <=1 , Intermediate >1 , Resistant >2 Aztreonam S <=2 F Susceptible <=4 , Intermediate >4 , Resistant >=16 Ampicillin/Sulbact R >16 F Piperacillin/Tazobac S <=2 F Gentamicin R >8 F Susceptible <=4 , Intermediate >4 , Resistant >8 Tobramycin S 4 F Susceptible <=4 , Intermediate >4 , Resistant >8 Trimeth sulfameth R >2 F Ciprofloxacin S <=0.25 F Susceptible <0.5 , Intermediate >=.5 , Resistant >=1 Nitrofurantoin S <=16 F Susceptible <=32 , Intermediate >32 , Resistant >[address] [facility] Comment on above: Performed By: #### 6 30-4 ####[facility] LABORATORYCLIA [id number] [place] [address] [place] [facility] CNOVon 06-11-2024 CNOV Office Visit (FPDOYL ) MARGARITA BETANCOURT ([id number]) 1940 F Date Time Provider Department 06/11/24 2:15 PM JONN KRISHNAMURTHY FPDOYL During your visit today, we recorded the following information about you: Temperature Pulse Blood pressure Weight 98 degrees 79/minute 138/88 72.6 kg Jonn Krishnamurthy DO 06/17/2024 9:20 PM Signed [facility] [place] Jonn DO W[place]la[place] [address] [place] [address] Date of Evaluation: 06/11/2024 Patient Name: Margarita Betancourt : 1940 Chief Complaint: Patient presents with: Urinary Frequency Incontinence: Bowel and urinary. X 1 week Hypertension: Elevated Low Back Pain: Spinal stenosis Follow Up: After seeing neurologist Nursing Intake: There are no exam notes on file for this visit. Subjective Ms. Betancourt is a 84 year old female who presents with the following complaint(s): The history is provided by the patient and a relative (2 daughters and daughter in law). No paraprofessional interpreter was used. Hypertension This is a chronic problem. The current episode started more than 1 year ago. Pertinent negatives include no chest pain, headaches, palpitations or shortness of breath. Back Pain This is a chronic problem. The current episode started more than 1 week ago. Pertinent negatives include no chest pain, no numbness, no headaches and no weakness. Mental Status Changes This is a recurrent problem. The problem occurs intermittently. Pertinent negatives include no chest pain, coughing, fatigue, headaches, numbness or weakness. Review of Systems Constitutional: Negative for fatigue and unexpected weight change. HENT: Negative for nosebleeds. Eyes: Negative for redness and visual disturbance. Respiratory: Negative for apnea, cough and shortness of breath. Cardiovascular: Negative for chest pain, palpitations and leg swelling. Genitourinary: Negative for hematuria. Musculoskeletal: Positive for back pain. Neurological: Negative for dizziness, weakness, light-headedness, numbness and headaches. Hematological: Does not bruise/bleed easily. Psychiatric/Behavioral : The patient is not nervous/anxious. PAST MEDICAL HISTORY Diagnosis Date Benign essential hypertension Cerebrovascular accident (CVA) ([facility]) Constipation Daytime somnolence Depressive disorder Disorder of eye due to type 2 diabetes mellitus Dyspnea Edema of upper extremity Fatigue Female stress incontinence Generalized anxiety disorder GERD (gastroesophageal reflux disease) Hip joint painful on movement Insomnia Insulin-treated type 2 diabetes mellitus (HCC) Mixed hyperlipidemia Muscle weakness (generalized) Obesity (BMI 30-39.9) Poor short term memory Premature beats Superficial thrombophlebitis Type 2 diabetes mellitus without complication ([facility]) Urinary tract infectious disease PAST SURGICAL HISTORY Procedure Laterality Date BLADDER SURGERY HX LIGATE FALLOPIAN TUBE REPAIR EPIGASTRIC HERNIA,REDUC REVISE MEDIAN N/CARPAL TUNNEL SURG TOTAL ABDOM HYSTERECTOMY 09/04/1983 FAMILY HISTORY Problem Relation Age of Onset Colon Cancer Brother other (myocardial infarction) Brother Social History Tobacco Use Smoking status: Never Smokeless tobacco: Never Vaping Use Vaping status: Never Used Substance Use Topics Alcohol use: Never Drug use: Never Current Outpatient Medications Medication Sig lisinopril (ZESTRIL) 20 mg tablet Take 1 tablet by mouth once daily. insulin lispro (HUMALOG KWIKPEN INSULIN) 100 unit/mL INJECT 14 UNITS SUBCUTANEOUSLY THREE TIMES DAILY BEFORE MEALS. (Patient taking differently: INJECT 18 UNITS SUBCUTANEOUSLY THREE TIMES DAILY BEFORE MEALS.) omeprazole (PRILOSEC) 40 mg capsule Take 1 capsule by mouth two times a day. insulin glargine (LANTUS SOLOSTAR U-100 INSULIN) 100 unit/mL (3 mL) Inject 18 Units subcutaneously daily at bedtime. metoprolol succinate ER (TOPROL XL) 50 mg 24 hr tablet Take 1 tablet by mouth once daily. gabapentin (NEURONTIN) 300 mg capsule Take 1 capsule by mouth two times a day. ELIQUIS 5 mg tab(s) Take 1 tablet by mouth every afternoon. mirtazapine (REMERON) 15 mg tablet Take 1 tablet by mouth daily at bedtime for 7 days, THEN 2 tablets daily at bedtime for 7 days, THEN 3 tablets daily at bedtime. phenazopyridine HCl (AZO ORAL) Take by mouth. Gummies OTC Magnesium 30 mg tablet Take 30 mg by mouth. daily POTASSIUM-99 ORAL Take by mouth. docusate sodium (COLACE) 100 mg capsule Take 1 capsule by mouth once daily as needed for constipation. ipratropium-albuterol (DUONEB) 0.5 mg-3 mg(2.5 mg base)/3 mL nebu USE 1 VIAL IN NEBULIZER 4 TIMES DAILY MEDICATION, NON-DATABASE Co q 10 b complex Calcium AND vit d MV with Kvk-Hgukcogt-Qcjoxa (CENTRUM SILVER) 0.4-300-250 mg-mcg- (more content not included)... Normal [facility] UA DIP, URINE (POC)on 2023 BILIRUBIN UA (POCT) Negative Negative [facility] CLARITY UA (POCT) Cloudy [facility] COLOR UA (POCT) Light yellow [facility] GLUCOSE UA (POCT) 500 mg/dL Abnormal Negative [facility] Hemoglobin Ql (U) Trace-intact Abnormal Negative [facility] Interpretation and review of laboratory results Abnormal [facility] KETONE UA (POCT) Negative Negative mg/dL [facility] LEUKOCYTES UA (POCT) Small Abnormal Negative [facility] NITRITE UA (POCT) Negative Negative [facility] PH UA (POCT) 6.5 4.5 - 8.0 [facility] Protein Ql (U) Trace Abnormal Negative mg/dL [facility] SPECIFIC GRAVITY UA (POCT) 1.020 1.005 - 1.030 [facility] UROBILINOGEN UA (POCT) 0.2 Divya l E.U./dL [facility] Location:[facility], [address] [place] [address], [address] [place] [address] POINT OF CARE [facility] Melvi 05-31-2024 [place] Telephone (FPDOYL) MARGARITA BETANCOURT ([id number]) 1940 F Date Time Provider Department 05/31/24 JONN KRISHNAMURTHY During your visit today, we recorded the following information about you: Lily Cook LPN 05/31/2024 3:55 PM Signed ----- Message from Jonn Krishnamurthy DO sent at 05/31/2024 11:12 AM EDT ----- Spinal stenosis or narrowing of the spine severe causes pain and weakness Lily Cook LPN 05/31/2024 3:57 PM Signed Lm for pt to rtn call. Christine Toscano LPN 06/10/2024 4:33 PM Signed Spoke with daughter Estefany and advised. She scheduled an appointment with Dr. Krishnamurthy for tomorrow. Allergies As of Date: 05/31/2024 Noted Allergy Reaction MEPERIDINE 07/01/2016 16 - Unknown 11 - Vomiting Date Reviewed: 05/29/2024 Reviewed by: Radha Aguilar MA - Fully Assessed Reason for Visit: Results [95] Prescriptions as of 06/10/2024 - lisinopril (ZESTRIL) 20 mg tablet Take 1 tablet by mouth once daily. - insulin lispro (HUMALOG KWIKPEN INSULIN) 100 unit/mL INJECT 14 UNITS SUBCUTANEOUSLY THREE TIMES DAILY BEFORE MEALS. - omeprazole (PRILOSEC) 40 mg capsule Take 1 capsule by mouth two times a day. - insulin glargine (LANTUS SOLOSTAR U-100 INSULIN) 100 unit/mL (3 mL) Inject 18 Units subcutaneously daily at bedtime. - metoprolol succinate ER (TOPROL XL) 50 mg 24 hr tablet Take 1 tablet by mouth once daily. - gabapentin (NEURONTIN) 300 mg capsule Take 1 capsule by mouth two times a day. - ELIQUIS 5 mg tab(s) Take 1 tablet by mouth every afternoon. - mirtazapine (REMERON) 15 mg tablet Take 1 tablet by mouth daily at bedtime for 7 days, THEN 2 tablets daily at bedtime for 7 days, THEN 3 tablets daily at bedtime. - phenazopyridine HCl (AZO ORAL) Take by mouth. Gummies OTC - ondansetron orally disintegrating (ZOFRAN ODT) 4 mg disintegrating tablet Take 1 tablet by mouth every 8 hours as needed for nausea/vomiting. - hydrOXYzine pamoate (VISTARIL) 25 mg capsule Take 1-2 capsules by mouth daily at bedtime. - Magnesium 30 mg tablet Take 30 mg by mouth two times a day. - POTASSIUM-99 ORAL Take by mouth. - docusate sodium (COLACE) 100 mg capsule Take 1 capsule by mouth once daily as needed for constipation. - ipratropium-albuterol (DUONEB) 0.5 mg-3 mg(2.5 mg base)/3 mL nebu USE 1 VIAL IN NEBULIZER 4 TIMES DAILY - MEDICATION, NON-DATABASE Co q 10 b complex Calcium AND vit d - QUEtiapine (SEROQUEL) 25 mg tablet TAKE 1/2 TABLET AT BEDTIME SCHEDULED, AND TAKE 1/2 TABLET DAILY NEEDED - MV with Lsl-Zyhqtqxx-Nmptik (CENTRUM SILVER) 0.4-300-250 mg-mcg-mcg tab Centrum Silver Tablet Centrum Silver Tablet Active 1 TAB DAILY December 23, 2015 3:40pm 12-23-2015 [facility] ([id number]) - PRODIGY LANCETS MISC four times daily. - blood sugar diagnostic (PRODIGY NO CODING) test strip four times daily. Meds Comments as of 10/08/2021: Problem List As Of Date 05/31/2024 Noted Resolved Insulin-treated type 2 diabetes mellitus (HCC) * Hyperlipidemia, mixed [E78.2] Screening for thyroid disorder [Z13.29] 12/14/2020 Generalized arthritis [M19.90] 12/14/2020 Recurrent UTI (urinary tract infection) [N39.0] 04/29/2021 Late onset Alzheimer's dementia with behavioral*04/29/2021 Essential (primary) hypertension [I10] 02/02/2022 Gastro-esophageal reflux disease without esopha*02/02/2022 Chronic insomnia [F51.04] 01/23/2023 Primary osteoarthritis of both hips [M16.0] 01/23/2023 Primary osteoarthritis of right knee [M17.11] 01/23/2023 Obesity, Class I, BMI 30-34.9 [E66.811] 01/23/2023 Lumbar spondylosis [M47.816] 07/11/2023 Spinal stenosis of lumbar region without neurog*04/21/2024 Recurrent falls [R29.6] 04/21/2024 Spinal stenosis of cervical region [M48.02] 05/29/2024 Encounter Status:Closed by CHRISTINE TOSCANO on 06/03/24 [facility] CNOVon 05-29-2024 CNOV Office Visit (AGOCMR ) MARGARITA BETANCOURT ([id number]) 1940 F Date Time Provider Department 05/29/24 1:00 PM JOHN DOAN [facility] During your visit today, we recorded the following information about you: Pulse Respiration Blood pressure 75/minute 16/minute 157/90 John Doan MD 05/29/2024 1:55 PM Signed John Doan M.D. ORTHOPEDIC SPINE CONSULT NOTE Date of visit: May 29, 2024 Patient Name: Ms.Pluma Jason Betancourt Date of : 1940 Current Age: [age] year old Sex: female PCP: Jonn Krishnamurthy DO Chief Complaint:Patient presents with: Spine - New HPI Ms.Pluma Jason Betancourt has a past medical history of HTN, CVA, daytime somnolence, depressive disorder, BERTA, GERD, insulin-treated type II diabetes mellitus, HLD, generalized muscle weakness, and superficial thrombophlebitis. Patient presents to the office today as a new patient with MRI and radiographic imaging for evaluation of lumbar spine. The patient is referred by Dr. Jonn Krishnamurthy, PCP, for orthopedic spine evaluation. She reports worsening low back pain that radiates into there right gluteal region down anterior right leg to renae without paresthesia. She has been utilizing a walker and wheelchair due to imbalance issues. She has had multiple falls, last fall was 1 week ago. Denies neck pain, upper extremity pain, paresthesia or weakness. Overall, the pain in her right gluteal region is most bothersome. Denies recent participation in conservative treatment. Full symptomology and conservative treatment outlined below. Patient presents to the office for image review, evaluation and plan of care. Pain: Low back Radiation: Right gluteal region to anterior right leg to renae Duration: Chronic Paresthesia: Denies Weakness: Bilateral hips Dexterity: Denies Imbalance: Endorses, falls B/B dysfcn: Bladder incontinence for 1 year. Denies saddle anesthesia PREVIOUS CONSERVATIVE TREATMENT: 1) Medication: Percocet 2) Physical therapy: No recent participation 3) Pain Management: No recent participation 4) Injections: No recent injections PREVIOUS SPINE SURGERY: Denies Surgical Risk Factors: Smoking status: Denies Anticoagulants/antipla telets: Eliquis Diabetic: Yes, last hgbA1c 9.1% from 11/24/2023 BMI: 29.08 REVIEW OF SYSTEMS: Review of Systems Constitutional: Negative for chills, fatigue, fever and unexpected weight change. HENT: Negative for trouble swallowing and voice change. Eyes: Negative for visual disturbance. Respiratory: Negative for shortness of breath, wheezing and stridor. Cardiovascular: Negative for chest pain, palpitations and leg swelling. Gastrointestinal: Negative for diarrhea, nausea and vomiting. Endocrine: Negative for cold intolerance and heat intolerance. Genitourinary: Negative for difficulty urinating, dysuria and urgency. Musculoskeletal: Positive for back pain and gait problem. Negative for neck pain. Skin: Negative for color change and pallor. Allergic/Immunologic: Negative for immunocompromised state. Neurological: Positive for weakness. Negative for speech difficulty, numbness and headaches. Hematological: Does not bruise/bleed easily. Psychiatric/Behavioral : Negative for agitation, behavioral problems and confusion. OBJECTIVE: BP 157/90 (BP Site: Right Arm, BP Position: Sitting, BP Cuff Size: Large Adult) Pulse 75 Resp 16 LMP (LMP Unknown) SpO2 95% PHYSICAL EXAM: 5/5 motor strength in BUE and BLE 4/5 bilateral hip flexion, +right hoffmanns, utilizes walker and wheelchair Data Review: MRI of lumbar spine WO contrast from 05/29/2024: L3-L4 moderate stenosis L4-L5 severe stenosis Scoliosis films from 05/10/2024: RESULT: Counting reference: Lumbosacral junction. For the purposes of this report, L4-5 is considered the level of the iliac crest. 12 paired ribs, vertebral body articulating with the first set of ribs designated T1. Rightward curvature lower thoracic/lumbar spine, Andrade angle 20.7 degrees T12-L4 Additional mild 5 degrees rightward curvature throughout the thoracic spine T4-T8 Positive sagittal balance Severe anterior wedge compression deformity T12, 45% height loss anteriorly Mild anterior wedge T3 compression deformity Multilevel disc and facet degenerative changes Hiatal hernia. Arterial calcifications Partially seen right femoral hardware Cervical spine radiographs from 05/10/2024. IMPRESSION: 1. Degenerative disc disease at C5-6 and C6-7 and to a lesser degree C4-5. 2. No evidence of spinal instability on flexion or extension. 3. Bones are of diffusely decreased density. ASSESSMENT/PLAN Margarita Betancourt will continue with medical management of his/her condition. Patient presents with right leg radiculopathy. However she has had worsening balance issues and hand dexterity issues over the last few months. There is cervical spondy (more content not included)... Normal [facility] MRI LUMBAR SPINE WO IVCONon 05-29-2024 MRI LUMBAR SPINE WO IVCON * * *Final Report* * * DATE OF EXAM: May 29 2024 11:58AM [id number] - MRI LUMBAR SPINE WO IVCON / PROCEDURE REASON: multiple diagnoses * * * * Physician Interpretation * * * * EXAMINATION: MRI LUMBAR SPINE WO IVCON CLINICAL HISTORY: Lumbar spondylosis Spinal stenosis of lumbar region without neurogenic claudication, multiple falls, unsteady gait TECHNIQUE: Routine lumbosacral spine MR protocol without gadolinium. MQ: [id number] COMPARISON: None. RESULT: Counting reference: Lumbosacral junction. For the purposes of this report, L4-5 level is at the level iliac crests Localizer images: Multiple renal cortical cysts, larger left side. Previous internal fixation right hip. Alignment: Alignment is anatomic. Bone marrow signal/fracture: No evidence of pathologic marrow infiltration. No evidence of acute compression fracture. Chronic wedge-shaped compression fracture deformity T12 vertebral body Conus: The conus is within normal limits of signal intensity and morphology. Cauda equina nerve roots appear unremarkable Paraspinal soft tissues: Paraspinal soft tissues are within normal limits. L1-L2: Mild degree degenerative central canal and bilateral foraminal stenosis secondary to posterior endplate hypertrophy and facet arthropathy L2-L3: Mild degree degenerative central canal and bilateral foraminal stenosis secondary to posterior endplate hypertrophy and facet arthropathy L3-L4: Moderate degree degenerative central canal stenosis, left foraminal stenosis and mild right foraminal stenosis secondary to posterior disc osteophyte complex, ligamentum flavum hypertrophy and facet joint arthropathy T2 axial image 28 L4-L5: Moderate/severe degree of central canal stenosis moderate degree bilateral foraminal stenosis greater right side secondary to posterior disc osteophyte complex, ligamentum flavum hypertrophy and facet joint arthropathy T2 axial image 35. L5-S1: Mild degree degenerative right foraminal stenosis due to facet arthropathy mild posterior facet hypertrophy Sacrum and iliac wings: The visualized sacrum and iliac wings are within normal limits. IMPRESSION: L4-L5: Moderate/severe degree of central canal stenosis and moderate degree bilateral foraminal stenosis, greater right side, secondary to posterior disc osteophyte complex, ligamentum flavum hypertrophy and facet joint arthropathy T2 axial image 35 L3-L4: Moderate degree of degenerative central canal stenosis, left foraminal stenosis and mild right foraminal stenosis secondary to posterior disc osteophyte complex, ligamentum flavum hypertrophy and facet joint arthropathy T2 axial image 28 No evidence of acute compression fracture. 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 CNOVon 05-23-2024 CNOV Office Visit (FPDOYL ) MARGARITA BETANCOURT ([id number]) 1940 F Date Time Provider Department 05/23/24 11:15 AM JONN KRISHNAMURTHY During your visit today, we recorded the following information about you: Pulse Blood pressure 76/minute 120/88 Jonn Krishnamurthy DO 06/02/2024 3:11 PM Signed [facility] [place] Jonn Krishnamurthy DO [address] [place] [address] Date of Evaluation: 05/23/2024 Patient Name: Margarita Betancourt : 1940 Chief Complaint: Patient presents with: Pain: /Difficult to get up out of bed Hips and low back pain - MRI 05/29 Xrays in chart - neck and back Nursing Intake: There are no exam notes on file for this visit. Subjective Ms. Betancourt is a 84 year old female who presents with the following complaint(s): The history is provided by the patient and a relative (daughter in law). Hypertension This is a chronic problem. The current episode started more than 1 year ago. Pertinent negatives include no chest pain, headaches, palpitations or shortness of breath. Back Pain This is a chronic problem. The problem occurs daily. The problem has not changed since onset.The pain is associated with no known injury. The pain is present in the lumbar spine. The pain is severe. The symptoms are aggravated by twisting and bending. Pertinent negatives include no chest pain, no numbness, no headaches and no weakness. Hip Pain The pain is present in the right hip and left hip. This is a chronic problem. There has been no history of extremity trauma. The problem occurs daily. The problem has been unchanged. Pertinent negatives include no numbness. Hypercholesterolemia This is a chronic problem. The current episode started more than 1 year ago. Associated symptoms include myalgias. Pertinent negatives include no chest pain or shortness of breath. GERD She complains of heartburn. She reports no chest pain or no coughing. This is a chronic problem. The current episode started more than 1 year ago. Associated symptoms include fatigue. Depression Pertinent negatives include no weakness. This is a new problem. The problem is unchanged. Past treatments include nothing. Review of Systems Constitutional: Positive for activity change, appetite change and fatigue. Negative for unexpected weight change. Patient daughter in law states that she says that she just wants to lay in bed and HENT: Negative for nosebleeds. Eyes: Negative for redness and visual disturbance. Respiratory: Negative for apnea, cough and shortness of breath. Cardiovascular: Negative for chest pain, palpitations and leg swelling. Gastrointestinal: Positive for heartburn. Genitourinary: Negative for hematuria. Musculoskeletal: Positive for arthralgias, back pain and myalgias. Chronic pain- back , hips. Neurological: Negative for dizziness, weakness, light-headedness, numbness and headaches. Memory loss Hematological: Does not bruise/bleed easily. Psychiatric/Behavioral : Positive for depression and sleep disturbance. The patient is not nervous/anxious. PAST MEDICAL HISTORY Diagnosis Date Benign essential hypertension Cerebrovascular accident (CVA) ([facility]) Constipation Daytime somnolence Depressive disorder Disorder of eye due to type 2 diabetes mellitus Dyspnea Edema of upper extremity Fatigue Female stress incontinence Generalized anxiety disorder GERD (gastroesophageal reflux disease) Hip joint painful on movement Insomnia Insulin-treated type 2 diabetes mellitus (HCC) Mixed hyperlipidemia Muscle weakness (generalized) Obesity (BMI 30-39.9) Poor short term memory Premature beats Superficial thrombophlebitis Type 2 diabetes mellitus without complication ([facility]) Urinary tract infectious disease PAST SURGICAL HISTORY Procedure Laterality Date BLADDER SURGERY HX LIGATE FALLOPIAN TUBE REPAIR EPIGASTRIC HERNIA,REDUC REVISE MEDIAN N/CARPAL TUNNEL SURG TOTAL ABDOM HYSTERECTOMY 09/04/1983 FAMILY HISTORY Problem Relation Age of Onset Colon Cancer Brother other (myocardial infarction) Brother Social History Tobacco Use Smoking status: Never Smokeless tobacco: Never Vaping Use Vaping status: Never Used Substance Use Topics Alcohol use: Never Drug use: Never Current Outpatient Medications Medication Sig phenazopyridine HCl (AZO ORAL) Take by mouth. Gummies OTC Magnesium 30 mg tablet Take 30 mg by mouth two times a day. POTASSIUM-99 ORAL Take by mouth. ipratropium-albuterol (DUONEB) 0.5 mg-3 mg(2.5 mg base)/3 mL nebu USE 1 VIAL IN NEBULIZER 4 TIMES DAILY MEDICATION, NON-DATABASE Co q 10 b complex Calcium AND vit d MV with Ory-Nnuenuxu-Royaao (CENTRUM SILVER) 0.4-300-250 mg-mcg-mcg tab Centrum Silver Tablet Centrum Silver T (more content not included)... Normal [facility] XR CERVICAL 4V AP/LAT/FLX/EX Ton 05-10-2024 XR CERVICAL 4V AP/LAT/FLX/EXT * * *Final Report* * * DATE OF EXAM: May 10 2024 11:45AM [id number] - XR CERVICAL 4V AP/LAT/FLX/EXT / PROCEDURE REASON: Cervical spinal stenosis * * * * Physician Interpretation * * * * CERVICAL SPINE CLINICAL INDICATION: Neck pain COMPARISON: None. FINDINGS: Lateral, frontal and lateral flexion and extension views obtained. Bones are of diffusely decreased density. Lower cervical spine and cervicothoracic junction are obscured on the lateral views due to overlapping structures. Vertebral alignment is maintained. No evidence of instability on flexion or extension. Degenerative disc disease at C5-6 and C6-7 and to a lesser degree C4-5. Spinous processes are intact. Prevertebral soft tissues are normal. IMPRESSION: 1. Degenerative disc disease at C5-6 and C6-7 and to a lesser degree C4-5. 2. No evidence of spinal instability on flexion or extension. 3. Bones are of diffusely decreased density. 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 XR SCOLIOSIS 2V PA STAND/LAT on 05-10-2024 XR SCOLIOSIS 2V PA STAND/LAT * * *Final Report* * * DATE OF EXAM: May 10 2024 11:45AM [id number] - XR SCOLIOSIS 2V PA STAND/LAT / PROCEDURE REASON: Lumbar spondylosis * * * * Physician Interpretation * * * * TECHNIQUE: XR SCOLIOSIS 2V PA STAND/LAT EXAM DATE: 05/10/2024 11:45 AM COMPARISON STUDIES: None CLINICAL HISTORY: Back and neck pain RESULT: Counting reference: Lumbosacral junction. For the purposes of this report, L4-5 is considered the level of the iliac crest. 12 paired ribs, vertebral body articulating with the first set of ribs designated T1. Rightward curvature lower thoracic/lumbar spine, Andrade angle 20.7 degrees T12-L4 Additional mild 5 degrees rightward curvature throughout the thoracic spine T4-T8 Positive sagittal balance Severe anterior wedge compression deformity T12, 45% height loss anteriorly Mild anterior wedge T3 compression deformity Multilevel disc and facet degenerative changes Hiatal hernia. 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 Tele[facility] (AGOR) MARGARITA BETANCOURT ([id number]) 1940 F Date Time Provider Department 05/08/24 JOHN DOAN [facility] During your visit today, we recorded the following information about you: Krystin Alcala RN 05/08/2024 8:39 AM Signed Patient is scheduled to see Dr. Doan on 05/10/2024. Upon chart review, appears MRI of lumbar spine was not obtained nor was scoliosis films or cervical radiographs obtained. Attempted to reach patient's daughter Estefany to further discuss, no answer. Unable to leave voice message as voicemail box is full. Krystin Alcala RN Allergies As of Date: 05/08/2024 Noted Allergy Reaction MEPERIDINE 07/01/2016 16 - Unknown 11 - Vomiting Date Reviewed: 04/19/2024 Reviewed by: Lily Cook LPN - Fully Assessed Reason for Visit: Appointment [186] Prescriptions as of 05/08/2024 - insulin glargine (LANTUS SOLOSTAR U-100 INSULIN) 100 unit/mL (3 mL) INJECT 18 UNITS SUBCUTANEOUSLY DAILY AT BEDTIME. - insulin lispro (HUMALOG KWIKPEN INSULIN) 100 unit/mL INJECT 14 UNITS SUBCUTANEOUSLY THREE TIMES DAILY BEFORE MEALS. - phenazopyridine HCl (AZO ORAL) Take by mouth. Gummies OTC - ondansetron orally disintegrating (ZOFRAN ODT) 4 mg disintegrating tablet Take 1 tablet by mouth every 8 hours as needed for nausea/vomiting. - hydrOXYzine pamoate (VISTARIL) 25 mg capsule Take 1-2 capsules by mouth daily at bedtime. - Magnesium 30 mg tablet Take 30 mg by mouth two times a day. - POTASSIUM-99 ORAL Take by mouth. - ELIQUIS 5 mg tab(s) Take 1 tablet by mouth every afternoon. - docusate sodium (COLACE) 100 mg capsule Take 1 capsule by mouth once daily as needed for constipation. - gabapentin (NEURONTIN) 300 mg capsule Take 1 capsule by mouth twice daily for 90 days. - lisinopril (ZESTRIL) 20 mg tablet Take 1 tablet by mouth once daily. - metoprolol succinate ER (TOPROL XL) 50 mg 24 hr tablet TAKE 1 TABLET BY MOUTH EVERY DAY - omeprazole (PRILOSEC) 40 mg capsule TAKE 1 CAPSULE BY MOUTH TWICE A DAY - ipratropium-albuterol (DUONEB) 0.5 mg-3 mg(2.5 mg base)/3 mL nebu USE 1 VIAL IN NEBULIZER 4 TIMES DAILY - MEDICATION, NON-DATABASE Co q 10 b complex Calcium AND vit d - QUEtiapine (SEROQUEL) 25 mg tablet TAKE 1/2 TABLET AT BEDTIME SCHEDULED, AND TAKE 1/2 TABLET DAILY NEEDED - MV with Wnu-Vvtqfyxa-Ohldey (CENTRUM SILVER) 0.4-300-250 mg-mcg-mcg tab Centrum Silver Tablet Centrum Silver Tablet Active 1 TAB DAILY December 23, 2015 3:40pm 12-23-2015 [facility] ([id number]) - magnesium hydroxide (MOM) 400 mg/5 mL suspension Take by mouth as needed. - PRODIGY LANCETS MISC four times daily. - blood sugar diagnostic (PRODIGY NO CODING) test strip four times daily. - citalopram (CELEXA) 40 mg tablet Take 40 mg by mouth q 24 HR. Meds Comments as of 10/08/2021: Problem List As Of Date 05/08/2024 Noted Resolved Insulin-treated type 2 diabetes mellitus (HCC) * Hyperlipidemia, mixed [E78.2] Screening for thyroid disorder [Z13.29] 12/14/2020 Generalized arthritis [M19.90] 12/14/2020 Recurrent UTI (urinary tract infection) [N39.0] 04/29/2021 Late onset Alzheimer's dementia with behavioral*04/29/2021 Essential (primary) hypertension [I10] 02/02/2022 Gastro-esophageal reflux disease without esopha*02/02/2022 Chronic insomnia [F51.04] 01/23/2023 Primary osteoarthritis of both hips [M16.0] 01/23/2023 Primary osteoarthritis of right knee [M17.11] 01/23/2023 Obesity, Class I, BMI 30-34.9 [E66.9] 01/23/2023 Lumbar spondylosis [M47.816] 07/11/2023 Spinal stenosis of lumbar region without neurog*04/21/2024 Recurrent falls [R29.6] 04/21/2024 Encounter Status:Closed by KRYSTIN ALCALA on 05/08/24 [facility] Angie 04-19-2024 CNOV Office Visit (FPDOYL ) MARGARITA BETANCOURT ([id number]) 1940 F Date Time Provider Department 04/19/24 11:15 AM JONN KRISHNAMURTHY FPDOYL During your visit today, we recorded the following information about you: Pulse Blood pressure Weight Height 87/minute 122/80 72.1 kg 1.575 Jonn Coto DO 04/21/2024 6:45 PM Signed [facility] Blue Hilldiego Krishnamurthy DO [address] [place] [address] Date of Evaluation: 04/19/2024 Patient Name: Margarita Betancourt : 1940 Chief Complaint: Patient presents with: Pain: Bilat hip pain Fallen 3 times - ER visits Xrays completed - no fx Pain to ambulate Only going from bed to chair - chair to bed Nursing Intake: There are no exam notes on file for this visit. Subjective Ms. Betancourt is a 84 year old female who presents with the following complaint(s): The history is provided by the patient. Hip Pain This is a chronic problem. The problem occurs daily. The problem has been gradually worsening. The pain is moderate. Associated symptoms include an inability to bear weight. Pertinent negatives include no fever or numbness. Fall The accident occurred More than 1 week ago (recurrent falls). Pertinent negatives include no fever, no numbness, no hematuria and no headaches. Hypertension This is a chronic problem. The current episode started more than 1 year ago. Pertinent negatives include no chest pain, headaches, palpitations or shortness of breath. Review of Systems Constitutional: Negative for fatigue, fever and unexpected weight change. HENT: Negative for nosebleeds. Eyes: Negative for redness and visual disturbance. Respiratory: Negative for apnea, cough and shortness of breath. Cardiovascular: Negative for chest pain, palpitations and leg swelling. Genitourinary: Negative for hematuria. Neurological: Negative for dizziness, weakness, light-headedness, numbness and headaches. Hematological: Does not bruise/bleed easily. Psychiatric/Behavioral : The patient is not nervous/anxious. PAST MEDICAL HISTORY No date: Benign essential hypertension No date: Cerebrovascular accident (CVA) ([facility]) No date: Constipation No date: Daytime somnolence No date: Depressive disorder No date: Disorder of eye Comment: due to type 2 diabetes mellitus No date: Dyspnea No date: Edema of upper extremity No date: Fatigue No date: Female stress incontinence No date: Generalized anxiety disorder No date: GERD (gastroesophageal reflux disease) No date: Hip joint painful on movement No date: Insomnia No date: Insulin-treated type 2 diabetes mellitus (HCC) No date: Mixed hyperlipidemia No date: Muscle weakness (generalized) No date: Obesity (BMI 30-39.9) No date: Poor short term memory No date: Premature beats No date: Superficial thrombophlebitis No date: Type 2 diabetes mellitus without complication ([facility]) No date: Urinary tract infectious disease PAST SURGICAL HISTORY No date: BLADDER SURGERY HX No date: LIGATE FALLOPIAN TUBE No date: REPAIR EPIGASTRIC HERNIA,REDUC No date: REVISE MEDIAN N/CARPAL TUNNEL SURG 09/04/1983: TOTAL ABDOM HYSTERECTOMY FAMILY HISTORY Problem Relation Age of Onset Colon Cancer Brother other (myocardial infarction) Brother Social History Tobacco Use Smoking status: Never Smokeless tobacco: Never Vaping Use Vaping Use: Never used Substance Use Topics Alcohol use: Never Drug use: Never Current Outpatient Medications Medication Sig insulin glargine (LANTUS SOLOSTAR U-100 INSULIN) 100 unit/mL (3 mL) INJECT 18 UNITS SUBCUTANEOUSLY DAILY AT BEDTIME. insulin lispro (HUMALOG KWIKPEN INSULIN) 100 unit/mL INJECT 14 UNITS SUBCUTANEOUSLY THREE TIMES DAILY BEFORE MEALS. hydrOXYzine pamoate (VISTARIL) 25 mg capsule Take 1-2 capsules by mouth daily at bedtime. Magnesium 30 mg tablet Take 30 mg by mouth two times a day. ELIQUIS 5 mg tab(s) Take 1 tablet by mouth every afternoon. docusate sodium (COLACE) 100 mg capsule Take 1 capsule by mouth once daily as needed for constipation. gabapentin (NEURONTIN) 300 mg capsule Take 1 capsule by mouth twice daily for 90 days. lisinopril (ZESTRIL) 20 mg tablet Take 1 tablet by mouth once daily. metoprolol succinate ER (TOPROL XL) 50 mg 24 hr tablet TAKE 1 TABLET BY MOUTH EVERY DAY omeprazole (PRILOSEC) 40 mg capsule TAKE 1 CAPSULE BY MOUTH TWICE A DAY oxyCODONE-acetaminophe n (PERCOCET) 5-325 mg tablet Take 1 tablet by mouth every 6 hours as needed for pain for up to 7 days. Take 1/2 pill in the morning and 1/2 pill in at night. phenazopyridine HCl (AZO ORAL) Take by mouth. Gummies OTC ondansetron orally disintegrating (ZOFRAN ODT) 4 mg disintegrating tablet Take 1 tablet by mouth every 8 hours as needed for nausea/vomiting. POTASSIUM-99 OR (more content not included)... Normal [facility] Melvi 04-19-2024 LEAH Telephone (NEAGCLM) MARGARITA BETANCOURT ([id number]) 1940 F Date Time Provider Department 04/19/24 [facility] During your visit today, we recorded the following information about you: Chepe Abrams 04/19/2024 12:43 PM Signed 04/19/24: LVM for Pt to [facility] regarding referral for appt. Allergies As of Date: 04/19/2024 Noted Allergy Reaction MEPERIDINE 07/01/2016 16 - Unknown 11 - Vomiting Date Reviewed: 04/19/2024 Reviewed by: Lily Cook LPN - Fully Assessed Prescriptions as of 04/19/2024 - oxyCODONE-acetaminophe n (PERCOCET) 5-325 mg tablet Take 1 tablet by mouth every 6 hours as needed for pain for up to 7 days. Take 1/2 pill in the morning and 1/2 pill in at night. - insulin glargine (LANTUS SOLOSTAR U-100 INSULIN) 100 unit/mL (3 mL) INJECT 18 UNITS SUBCUTANEOUSLY DAILY AT BEDTIME. - insulin lispro (HUMALOG KWIKPEN INSULIN) 100 unit/mL INJECT 14 UNITS SUBCUTANEOUSLY THREE TIMES DAILY BEFORE MEALS. - phenazopyridine HCl (AZO ORAL) Take by mouth. Gummies OTC - ondansetron orally disintegrating (ZOFRAN ODT) 4 mg disintegrating tablet Take 1 tablet by mouth every 8 hours as needed for nausea/vomiting. - hydrOXYzine pamoate (VISTARIL) 25 mg capsule Take 1-2 capsules by mouth daily at bedtime. - Magnesium 30 mg tablet Take 30 mg by mouth two times a day. - POTASSIUM-99 ORAL Take by mouth. - ELIQUIS 5 mg tab(s) Take 1 tablet by mouth every afternoon. - docusate sodium (COLACE) 100 mg capsule Take 1 capsule by mouth once daily as needed for constipation. - gabapentin (NEURONTIN) 300 mg capsule Take 1 capsule by mouth twice daily for 90 days. - lisinopril (ZESTRIL) 20 mg tablet Take 1 tablet by mouth once daily. - metoprolol succinate ER (TOPROL XL) 50 mg 24 hr tablet TAKE 1 TABLET BY MOUTH EVERY DAY - omeprazole (PRILOSEC) 40 mg capsule TAKE 1 CAPSULE BY MOUTH TWICE A DAY - ipratropium-albuterol (DUONEB) 0.5 mg-3 mg(2.5 mg base)/3 mL nebu USE 1 VIAL IN NEBULIZER 4 TIMES DAILY - MEDICATION, NON-DATABASE Co q 10 b complex Calcium AND vit d - QUEtiapine (SEROQUEL) 25 mg tablet TAKE 1/2 TABLET AT BEDTIME SCHEDULED, AND TAKE 1/2 TABLET DAILY NEEDED - MV with Don-Ssrkkkxl-Njjoxh (CENTRUM SILVER) 0.4-300-250 mg-mcg-mcg tab Centrum Silver Tablet Centrum Silver Tablet Active 1 TAB DAILY December 23, 2015 3:40pm 12-23-2015 [facility] ([id number]) - magnesium hydroxide (MOM) 400 mg/5 mL suspension Take by mouth as needed. - PRODIGY LANCETS MISC four times daily. - blood sugar diagnostic (PRODIGY NO CODING) test strip four times daily. - citalopram (CELEXA) 40 mg tablet Take 40 mg by mouth q 24 HR. Meds Comments as of 10/08/2021: Problem List As Of Date 04/19/2024 Noted Resolved Insulin-treated type 2 diabetes mellitus (HCC) * Hyperlipidemia, mixed [E78.2] Screening for thyroid disorder [Z13.29] 12/14/2020 Generalized arthritis [M19.90] 12/14/2020 Recurrent UTI (urinary tract infection) [N39.0] 04/29/2021 Late onset Alzheimer's dementia with behavioral*04/29/2021 Essential (primary) hypertension [I10] 02/02/2022 Gastro-esophageal reflux disease without esopha*02/02/2022 Chronic insomnia [F51.04] 01/23/2023 Primary osteoarthritis of both hips [M16.0] 01/23/2023 Primary osteoarthritis of right knee [M17.11] 01/23/2023 Obesity, Class I, BMI 30-34.9 [E66.9] 01/23/2023 Lumbar spondylosis [M47.816] 07/11/2023 Encounter Status:Closed by Chepe ABRAMS on 04/19/[address] [facility] Brain/Head without Contrasto n 02-22-2024 Brain/Head without Contrast [facility] Imaging Services [address] [place], [place] [address] Brain/Head without Contrast MR#: [id number] Acct: [id number] Name: MARGARITA BETANCOURT Rep #: [id number] : 1940 F 83 From: Pedro Bartlett DO PCP: Dr. Jihan Krishnamurthy DO Status: [facility] ER Study: Brain/Head without Contrast Date of Exam: 02/03 Exam# [id number] Ordering Dr: Cosme Craig [place] [id number] STUDY: CT BRAIN WITHOUT CONTRAST REASON FOR EXAM: Female, 83 years old. Injury/Pain RADIATION DOSAGE (If Supplied By Facility): CTDIvol = ( 44.99 ) mGy, DLP = ( 745.49 ) mGycm TECHNIQUE: Transaxial CT imaging of the brain was performed without administration of intravenous contrast material. Individualized dose optimization techniques were used for this CT. COMPARISON: No relevant priors. FINDINGS: Normal soft tissue structures. Normal calvarium. Prominent ventricles. Normal extra-axial spaces for the patient''s age. Bilateral white matter microangiopathic ischemic changes of the cerebral hemispheres. Normal basal ganglia and thalami. Normal brainstem. Normal cerebellum. There is no intracranial hemorrhage. There are no findings of an acute ischemic infarction. Normal visualized paranasal sinuses. CT/Brain/Head without Contrast IMPRESSION: Age-related changes of the brain. Electronically Signed: Pedro Bartlett DO at 21:12 EDT , CC: Dr. Cosme Craig DO; Dr. 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 Jihan Krishnamurthy, Status:DEP ER Location: ED HPI HPI - Fall History of Present Illness Chief Complaint: Fall Informant: patient Occured/Mechanism Occurred: Today Mechanism/Context: Yes same level fall Usually ambulates: Walker Pain/Injury Location: Right hip and buttock Quality of Pain: Aching and Stabbing Worsened by: Ambulation, weightbearing Relieved by: Nothing Associated Symptoms Associated Symptoms: Negative for Parasthesias, Weakness, Loss of function, Loss of consciousness or Amnesia Narrative Narrative: Patient presents after a fall that occurred today. Patient was bending over getting something out of the bottom of her refrigerator when she stood up quickly. Granddaughter states that she got ligh theaded and started to fall backwards. Granddaughter states she was able to catch her and help her to the ground. Patient complains of pain in her right gluteal area and right hip area. Granddaughter states that the patient had a prior hip fracture on the right and has had surgical fixation of that right hip. Patient states her pain is worse with ambulation. Patient denies any paresthesias or weakness. Patient denies any head injury or loss of consciousness. Patient denies any other injuries. [facility] Medical History DVT (deep venous thrombosis) 23-polyvalent pneumococcal polysaccharide vaccine indication of diabetes in patient 6 to 64 years of age Cholecystitis Dementia Home Medications ???Medication ???Instructions ???Recorded ???Last Taken ???Type insulin glargine 100 unit/mL (3 18 units subcut QHS insulin 12/23/15 05/13/21 History mL) subcutaneous pen (Lantus Solostar U-100 Insulin) lisinopril 20 mg tablet 20 mg PO DAILY 12/23/15 05/14/21 History apixaban 5 mg tablet 5 mg PO DAILY 10/09/19 05/14/21 History metoprolol succinate 50 mg 50 mg PO DAILY HEART 05/14/21 05/14/21 History tablet,extended release 24 hr kpldfjoh-puvojno-amlx- lutein tablet 1 tab PO DAILY SUPPLEMENT 05/14/21 05/14/21 History omeprazole 40 mg capsule,delayed 40 mg PO BID ACID REFLUX 05/14/21 05/14/21 History release quetiapine 25 mg tablet 25 mg PO QHS MOOD 05/14/21 05/13/21 History insulin lispro 100 unit/mL See Protocol TID insulin 05/16/21 Unknown History subcutaneous pen (Humalog KwikPen (U-100) Insulin) acetaminophen 325 mg tablet 650 mg (2 x 325 mg) PO Q6H PRN PRN 05/17/21 Unknown Rx (Tylenol) Pain Score 1-10/Temp > 100.7 F #0 tabs Allergy/AdvReac Type Severity Reaction Status Date / Time morphine Allergy Itching Verified 02/22/24 20:04 meperidine HCl (From Demerol) AdvReac Nausea Verified 02/22/24 20:04 Family History (Updated 05/14/21 @ 21:[address] Paco Coombs MD) Other Diabetes Heart disease Surgical History History of total knee arthroplasty History of hip surgery S/P cholecystectomy Social History household members: family Smoking Status: Former smoker alcohol intake: current Alcohol type: other substance use type: does not use ROS ROS ED Constitutional Constitutional ED: Denies chills or fever(s) Eyes Eyes: Denies blurry vision or change in vision ENT ENT ED: Denies rhinorrhea or sore throat Cardiovascular Cardiovascular: Denies chest pain or palpitations Respiratory/Chest Respiratory/Chest: Denies cough or dyspnea Gastrointestinal Gastrointestinal: Denies nausea or vomiting Genitourinary Genitourinary ED: Denies dysuria or hematuria Musculoskeletal Musculoskeletal: Denies back pain or neck pain Integumentary Denies abscess or rash Neurologic Neurologic: Denies headache(s) or weakness Allergic/Immunologic Allergic/Immunologic ED: Denies mouth swelling or urticaria EXAM Physical Exam Const Vital Signs: 02/22/24 20:01 02/22/24 20:20 Temperature 97.8 F Temperature Source Temporal Pulse Rate 68 Respiratory Rate 16 Respiratory Effort Normal Non-Labored Respiratory Depth Normal Respiratory Pattern Normal Blood Pressure 182/77 H Blood Pressure Mean 112 Pulse Ox 97 Oxygen Delivery Method Room Air Room Air Positive well nourished and well developed General Appearance ED: well developed and NAD HEENT Reports normocephalic atraumatic Neck full ROM and supple Resp normal respiratory effort and clear to auscultation bilaterally Cardio regular rate and regular rhythm Extremity Extremity Narrative: (more content not included)... Normal [facility] HIP, UNI W/ Pelvis 2-3 Views on 02-22-2024 HIP, UNI W/ Pelvis 2-3 Views [facility] Imaging Services [address], [place] [address] HIP, UNI W/ Pelvis 2-3 Views MR#: [id number] Acct: [id number] Name: MARGARITA BETANCOURT Jason Rep #: [id number] : 1940 F 83 From: Pedro Bartlett DO PCP: Dr. Jihan Krishnamurthy DO Status: REG ER Study: HIP, UNI W/ Pelvis 2-3 Views Date of Exam: Exam# [id number] Ordering Dr: Cosme Craig DO [id number] INDICATION: Injury/Pain EXAMINATION/TECHNIQUE: X-RAY - XR Right Hip Unilateral with Pelvis when performed; 2-3 Views COMPARISON: FINDINGS: PELVIC BONES: No displaced fracture, destructive or sclerotic lesions. Note that overlapping bowel shadows may however obscure fine detail. Sacroiliac joints are unremarkable. No widening of the pubic symphysis. HIPS: Status post right femoral ORIF. No displaced fracture seen in this frontal view. SOFT TISSUES: No soft tissue swelling or gas. RAD/HIP, UNI W/ Pelvis 2-3 Views IMPRESSION: No acute bony injury. Electronically Signed: Pedro Bartlett DO at 21:21 EDT , CC: Dr. Cosme Carig, DO; Dr. Jihan Krishnamurthy, DO Structural [employer] Detailer: Signed Normal [facility] HEMOGLOBIN A1C (POC)on 11-23 HbA1c (Bld) [Mass fraction] 9.1 % Abnormal 4.3 - 5.6 % [facility] UA DIP, URINE (POC)on 2022 BILIRUBIN UA (POCT) Negative Negative [facility] CLARITY UA (POCT) Cloudy [facility] COLOR UA (POCT) Light yellow [facility] GLUCOSE UA (POCT) 100 mg/dL Abnormal Negative mg/dL [facility] Hemoglobin Ql (U) Trace-intact Abnormal Negative [facility] KETONE UA (POCT) Negative Negative mg/dL [facility] LEUKOCYTES UA (POCT) Large Abnormal Negative [facility] NITR[facility] (POCT) Negative Negative [facility] PH UA (POCT) 7.0 4.5 - 8.0 [facility] Protein Ql (U) 30 mg/dL Abnormal Negative mg/dL [facility] SPECIFIC GRAVITY UA (POCT) 1.020 1.005 - 1.030 [facility] UROBILINOGEN UA (POCT) 0.2 E.U./dL Divya l E.U./dL [facility] HEMOGLOBIN A1C (POC)on 01-27 HbA1c (Bld) [Mass fraction] 8.2 % Abnormal 4.2 - 5.6 % [facility] Basic Metabolic Panelon 07-2 Anion gap [Moles/Vol] 4 Normal [facility] Comment on above: Performed By: #### H EMDF, LACT3, LIPA4, CMP3, BNP3, TROPN, CRP2 #### [facility] EDP [employer] [facility] [address] [place] [address] Calcium [Mass/Vol] 8.2 mg/dL Low 8.4-10.4 [facility] Comment on above: Performed By: #### H EMDF, LACT3, LIPA4, CMP3, BNP3, TROPN, CRP2 #### [facility] [place] [address] [place] [address] CO2 [Moles/Vol] 23 mmol/L Normal 22-30 [facility] Comment on above: Performed By: #### H EMDF, LACT3, LIPA4, CMP3, BNP3, TROPN, CRP2 #### [facility] [address] [place] [address] Glucose [Mass/Vol] 172 mg/dL High 70-100 [facility] Comment on above: Performed By: #### H EMDF, LACT3, LIPA4, CMP3, BNP3, TROPN, CRP2 #### [facility] [address] [place] [address] Urea nitrogen [Mass/Vol] 20 mg/dL Normal 7-20 [facility] Comment on above: Performed By: #### H EMDF, LACT3, LIPA4, CMP3, BNP3, TROPN, CRP2 #### [place] [address] [place] [address] Creatinine [Mass/Vol] 0.87 mg/dL Normal 0.52-1.25 [facility] Comment on above: Performed By: #### H EMDF, LACT3, LIPA4, CMP3, BNP3, TROPN, CRP2 #### [facility] [address] [place] [address] GFR/1.73 sq M predicted among blacks MDRD (S/P/Bld) [Vol rate/Area] 72.9 mL/min/{1.73_m2} Normal >60 [facility] Comment on above: Performed By: #### H EMDF, LACT3, LIPA4, CMP3, BNP3, TROPN, CRP2 #### [facility] [address] [place] [address] GFR/1.73 sq M predicted among non-blacks MDRD (S/P/Bld) [Vol rate/Area] 62.9 mL/min/{1.73_m2} Normal >60 [facility] Comment on above: Result Comment: KDIG O guidelines provide the following GFR categories: Stage GFR(ml/min/1.73 m2) Terms G1 >=90 Normal or high G2 60-89 Mildly decreased* G3a 45-59 Mildly to moderately decreased G3b 30-44 Moderately to severely decreased G4 15-29 Severely decreased G5 <15 Kidney failure *Relative to young adult level. In the absence of evidence of kidney damage, neither GFR category G1 nor G2 fulfill the criteria for CKD. The CKD-EPI equation is validated in individuals 18 years of age and older. Currently the best equation for estimating glomerular filtration rate (GFR) from serum creatinine in children is the Bedside Atkins equation. It is less accurate in patients with extremes of muscle mass, restriction of dietary protein, ingestion of creatine, extra-renal metabolism of creatinine, or treatment with medications that affect renal tubular creatinine secretion. Performed By: #### H EMDF, LACT3, LIPA4, CMP3, BNP3, TROPN, CRP2 #### [facility] [address] [place] [address] Chloride [Moles/Vol] 109 mmol/L High 98-107 [facility] Comment on above: Performed By: #### H EMDF, LACT3, LIPA4, CMP3, BNP3, TROPN, CRP2 #### [facility] [address] [place] [address] Potassium [Moles/Vol] 4.3 mmol/L Normal 3.5-5.1 [facility] Comment on above: Performed By: #### H EMDF, LACT3, LIPA4, CMP3, BNP3, TROPN, CRP2 #### [facility] [address] [place] [address] Sodium [Moles/Vol] 136 mmol/L Normal 135-145 [facility] Comment on above: Performed By: #### H EMDF, LACT3, LIPA4, CMP3, BNP3, TROPN, CRP2 #### [facility] [address] [place] [address] Basic Metabolic Panel w/ Ref kristen to MGon 03-27-2020 Anion gap [Moles/Vol] 4 mmol/L [facility] [place] Calcium [Mass/Vol] 8.2 mg/dL Low 8.4 - 10. 4 mg/dL [facility], [place] Chloride [Moles/Vol] 109 mmol/L High 98 - 10 7 mmol/L [facility], [place] CO2 [Moles/Vol] 23 mmol/L 22 - 30 mmol/L [place], [place] Creatinine [Mass/Vol] 0.87 mg/dL 0.52 - 1.25 mg/dL [place], [place] EGFR IF NonAfrican Monegasque 62.9 mL/min >60 [place] Comment on above: KDIGO guidelines pro vide the following GFR categories: Stage GFR(ml/min/1.73 m2) Terms G1 >=90 Normal or high G2 60-89 Mildly decreased* G3a 45-59 Mildly to moderately decreased G3b 30-44 Moderately to severely decreased G4 15-29 Severely decreased G5 <15 Kidney failure *Relative to young adult level. In the absence of evidence of kidney damage, neither GFR category G1 nor G2 fulfill the criteria for CKD. The CKD-EPI equation is validated in individuals 18 years of age and older. Currently the best equation for estimating glomerular filtration rate (GFR) from serum creatinine in children is the Bedside Atkins equation. It is less accurate in patients with extremes of muscle mass, restriction of dietary protein, ingestion of creatine, extra-renal metabolism of creatinine, or treatment with medications that affect renal tubular creatinine secretion. GFR/1.73 sq M predicted among blacks MDRD (S/P/Bld) [Vol rate/Area] 72.9 mL/min/{1.73_m2} >60 [place], [place] Glucose [Mass/Vol] 172 mg/dL High 70 - 100 mg/dL [place] Interpretation and review of laboratory results Abnormal [place] Potassium [Moles/Vol] 4.3 mmol/L 3.5 - 5.1 mmol/L [place] Sodium [Moles/Vol] 136 mmol/L 135 - 145 mmol/L [place] Urea nitrogen [Mass/Vol] 20 mg/dL 7 - 20 mg/dL [place] Test Performed by [facility], [address], [place], [place] [address] [place], [place] CBCon 03-27-2020 Erythrocyte distribution width (RBC) [Ratio] 17.4 % High 11.5 - 14.5 % [place] Hematocrit (Bld) [Volume fraction] 31.1 % Low 35 - 47 % [place] Hemoglobin (Bld) [Mass/Vol] 9.5 g/dL Low 11.7 - 16 g/dL [place] Interpretation and review of laboratory results Abnormal [place] MCH (RBC) [Entitic mass] 22.9 pg Low 26 - 34 pg [place] MCHC (RBC) [Mass/Vol] 30.6 % Low 32 - 36 % [place] MCV (RBC) [Entitic vol] 74.8 fL Low 79 - 98 fL [place] Platelet mean volume (Bld) [Entitic vol] 9.2 fL 7.4 - 10.4 fL [place] Platelets (Bld) [#/Vol] 251 10*3/uL 140 - 440 10*3/uL [place] RBC (Bld) [#/Vol] 4.16 10*6/uL 3.8 - 5.2 10*6/uL [place] WBC (Bld) [#/Vol] 13.9 10*3/uL High 3.6 - 10.7 10*3/uL [place] Test Performed by [facility], [address] [place], [place] [id number] [place] [address] CTA CHEST W WO CONTRASTon Patient Name: MARGARITA BETANCOURT ---CT--- Exam Date/Time 03/27/2020 14:29:47 EDT Exam CTA Chest w/ + w/o Contrast Ordering Physician DO BUCKLEY GEORGE E Accession Number [id number] CPT4 Codes 62097 (), Q9967 (CT ISOVUE 370MG/[id number] L&1) Reason For Exam Hypoxia, PNA Report CLINICAL HISTORY: Hypoxia, pneumonia, increased shortness of breath COMPARISON: Chest radiograph from 03/25/2020 Technique: [address] images were obtained of the chest after the uneventful IV administration of 75 mL of Isovue-370. Image acquisition was timed for maximal opacification of the pulmonary arteries. Images were reformatted in coronal and sagittal projections. 3D reformats were generated concurrently by myself on a separate workstation to better visualize the gross vascular anatomy. Pulmonary arteries: There is technically adequate opacification of the pulmonary arteries. No pulmonary embolus is identified. Lungs/pleura: Small left and moderate right pleural effusions are present with adjacent atelectasis. A 2.3 cm groundglass nodular opacity is present in the left upper lobe of the lungs. Heart/Great vessels: The heart is normal in size with no pericardial effusion. The aorta is normal in course and caliber with no evidence of aneurysmal dilatation or dissection although contrast bolus is not optimized for aortic evaluation. Mediastinum/Beverly: No lymphadenopathy identified. Thyroid and Esophagus: Moderate to large hiatal hernia. The thyroid is normal in appearance. Visualized Upper Abdomen: There is a partially visualized simple fluid attenuation cyst which appears to arise from the left upper renal pole. Suggestion of cholelithiasis on the last image in the abdomen. Calcified granulomas are scattered throughout the liver and spleen. No other significant abnormalities. Chest wall/Lower neck: Normal Bones: Right anterior 3rd-8th rib fractures and left anterior 4th-7th rib fractures are seen with mild osseous healing callus formation at some of the fracture sites. T12 compression deformity with 50 percent height loss is similar to 07/31/2018. IMPRESSION: 1. No evidence of pulmonary embolism. 2. Small left and moderate right pleural effusion with adjacent atelectasis. 3. Patchy 2.3 cm groundglass nodule in the left upper lobe, suggestive of infectious/inflammator y process. Neoplasm cannot be completely excluded. Recommend follow-up imaging to resolution. Imaging features can be seen with (Covid-19) pneumonia, though are nonspecific and can occur with a variety of infectious and noninfectious processes. 4. Multiple bilateral subacute to chronic appearing anterior rib fractures. 5. Moderate to large hiatal hernia. Report Dictated on Workstation: [id number] --- Final --- Dictating Physician: MD MADISON JAMES Signed Date and Time: 03/27/2020 3:19 pm Signed by: MD MADISON JAMES Transcribed Date and Time: 03/27/2020 3:20 [facility] [place], [place] [facility], [facility] Incoming Radiology [facility] - 03/27/2020 3:20 PM EDT Patient Name: MARGARITA BETANCOURT ---CT--- Exam Date/Time 03/27/2020 14:29:47 EDT Exam CTA Chest w/ + w/o Contrast Ordering Physician DO BUCKLEY GEORGE E Accession Number [id number] CPT4 Codes 30072 (), Q9967 (CT ISOVUE 370MG/[id number] L&1) Reason For Exam Hypoxia, PNA Report CLINICAL HISTORY: Hypoxia, pneumonia, increased shortness of breath COMPARISON: Chest radiograph from 03/25/2020 Technique: [address] images were obtained of the chest after the uneventful IV administration of 75 mL of Isovue-370. Image acquisition was timed for maximal opacification of the pulmonary arteries. Images were reformatted in coronal and sagittal projections. 3D reformats were generated concurrently by myself on a separate workstation to better visualize the gross vascular anatomy. Pulmonary arteries: There is technically adequate opacification of the pulmonary arteries. No pulmonary embolus is identified. Lungs/pleura: Small left and moderate right pleural effusions are present with adjacent atelectasis. A 2.3 cm groundglass nodular opacity is present in the left upper lobe of the lungs. Heart/Great vessels: The heart is normal in size with no pericardial effusion. The aorta is normal in course and caliber with no evidence of aneurysmal dilatation or dissection although contrast bolus is not optimized for aortic evaluation. Mediastinum/Beverly: No lymphadenopathy identified. Thyroid and Esophagus: Moderate to large hiatal hernia. The thyroid is normal in appearance. Visualized Upper Abdomen: There is a partially visualized simple fluid attenuation cyst which appears to arise from the left upper renal pole. Suggestion of cholelithiasis on the last image in the abdomen. Calcified granulomas are scattered throughout the liver and spleen. No other significant abnormalities. Chest wall/Lower neck: Normal Bones: Right anterior 3rd-8th rib fractures and left anterior 4th-7th rib fractures are seen with mild osseous healing callus formation at some of the fracture sites. T12 compression deformity with 50 percent height loss is similar to 07/31/2018. IMPRESSION: 1. No evidence of pulmonary embolism. 2. Small left and moderate right pleural effusion with adjacent atelectasis. 3. Patchy 2.3 cm groundglass nodule in the left upper lobe, suggestive of infectious/inflammator y process. Neoplasm cannot be completely excluded. Recommend follow-up imaging to resolution. Imaging features can be seen with (Covid-19) pneumonia, though are nonspecific and can occur with a variety of infectious and noninfectious processes. 4. Multiple bilateral subacute to chronic appearing anterior rib fractures. 5. Moderate to large hiatal hernia. Report Dictated on Workstation: [id number] --- Final --- Dictating Physician: MD MADISON JAMES Signed Date and Time: 03/27/2020 3:19 pm Signed by: MD MADISON JAMES Transcribed Date and Time: 03/27/2020 3:20 [place] CTA Chest w/ + w/o Contrasto n 03-27-2020 CTA Chest w/ + w/o Contrast Patient Name: MARGARITA BETANCOURT CT Exam Date/Time 03/27/2020 14:29:47 EDT Exam CTA Chest w/ + w/o Contrast Ordering Physician DO BUCKLEY GEORGE E Accession Number [id number] CPT4 Codes 14187 (), Q9967 (CT ISOVUE 370MG/[id number] andMLand1) Reason For Exam Hypoxia, PNA Report CLINICAL HISTORY: Hypoxia, pneumonia, increased shortness of breath COMPARISON: Chest radiograph from 03/25/2020 Technique: [address] images were obtained of the chest after the uneventful IV administration of 75 mL of Isovue-370. Image acquisition was timed for maximal opacification of the pulmonary arteries. Images were reformatted in coronal and sagittal projections. 3D reformats were generated concurrently by myself on a separate workstation to better visualize the gross vascular anatomy. Pulmonary arteries: There is technically adequate opacification of the pulmonary arteries. No pulmonary embolus is identified. Lungs/pleura: Small left and moderate right pleural effusions are present with adjacent atelectasis. A 2.3 cm groundglass nodular opacity is present in the left upper lobe of the lungs. Heart/Great vessels: The heart is normal in size with no pericardial effusion. The aorta is normal in course and caliber with no evidence of aneurysmal dilatation or dissection although contrast bolus is not optimized for aortic evaluation. Mediastinum/Beverly: No lymphadenopathy identified. Thyroid and Esophagus: Moderate to large hiatal hernia. The thyroid is normal in appearance. Visualized Upper Abdomen: There is a partially visualized simple fluid attenuation cyst which appears to arise from the left upper renal pole. Suggestion of cholelithiasis on the last image in the abdomen. Calcified granulomas are scattered throughout the liver and spleen. No other significant abnormalities. Chest wall/Lower neck: Normal Bones: Right anterior 3rd-8th rib fractures and left anterior 4th-7th rib fractures are seen with mild osseous healing callus formation at some of the fracture sites. T12 compression deformity with 50 percent height loss is similar to 07/31/2018. IMPRESSION: 1. No evidence of pulmonary embolism. 2. Small left and moderate right pleural effusion with adjacent atelectasis. 3. Patchy 2.3 cm groundglass nodule in the left upper lobe, suggestive of infectious/inflammator y process. Neoplasm cannot be completely excluded. Recommend follow-up imaging to resolution. Imaging features can be seen with (Covid-19) pneumonia, though are nonspecific and can occur with a variety of infectious and noninfectious processes. 4. Multiple bilateral subacute to chronic appearing anterior rib fractures. 5. Moderate to large hiatal hernia. Report Dictated on Workstation: Cardo MedicalDS Final Dictating Physician: MD MADISON JAMES Signed Date and Time: 03/27/2020 3:19 pm Signed by: MD MADISON JAMES Transcribed Date and Time: 03/27/2020 3:20 Normal [facility] CULTURE URINEon 03-27-2020 CULTURE URINE CULTURE URINE --> Status: F No growth (<1,000 CFU/ml). Normal [facility] Comment on above: Order Comment: Speci men Source Comment:Urine, clean catch Performed By: #### H EMDF, LACT3, LIPA4, CMP3, BNP3, TROPN, CRP2 #### [facility] [address] 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 Machine: LINSEY : 1940 Requested By: DANETTE MAHAJAN Order Number: [id number] Reading MD: Lester Marquez Measurements Intervals [place] Rate: 101 P: -5 [place]: 192 QRS: -3 QRSD: 92 T: 76 QT: 336 QTc: 436 Interpretive Statements SINUS TACHYCARDIA Poor R wave progression Nonspecific ST-T wave changes Electronically Signed On 03-27-2020 17:23:37 EDT by Rue89 [employer] [facility] ARELY Claus, [facility] Incoming Cardiology Results From [facility] - 03/27/2020 5:24 PM EDT [facility] Test Date: 2020-03-25 Pat Name: Margarita Betancourt Department: 01 Room: 465 Gender: F Seat Scooper Machine: LINSEY : 1940 Requested By: DANETTE MAHAJAN Order Number: [id number] Reading MD: Lester Marquez Measurements Intervals [place] Rate: 101 P: -5 [place]: 192 QRS: -3 QRSD: 92 T: 76 QT: 336 QTc: 436 Interpretive Statements SINUS TACHYCARDIA Poor R wave progression Nonspecific ST-T wave changes Electronically Signed On 03-27-2020 17:23:37 EDT by Rue89 [facility] Glucose,Bedsideon 03-27-2020 Glucose [Mass/Vol] 61 mg/dL Low 70-100 [facility] Comment on above: Result Comment: Test performed by glucose meter. Results may be 10%-15% lower than serum/plasma values. (CLIA ID [id number]) Performed By: #### H EMDF, LACT3, LIPA4, CMP3, BNP3, TROPN, CRP2 #### [facility] [address] [place] [address] Glucose [Mass/Vol] 203 mg/dL High 70-100 [facility] Comment on above: Result Comment: Test performed by glucose meter. Results may be 10%-15% lower than serum/plasma values. (CLIA ID [id number]) Performed By: #### H EMDF, LACT3, LIPA4, CMP3, BNP3, TROPN, CRP2 #### [employer] [address] [place] [address] Glucose [Mass/Vol] 273 mg/dL High 70-100 [facility] Comment on above: Result Comment: Test performed by glucose meter. Results may be 10%-15% lower than serum/plasma values. (CLIA ID [id number]) Performed By: #### H EMDF, LACT3, LIPA4, CMP3, BNP3, TROPN, CRP2 #### [facility] [address] [facility] [place] [address] Glucose [Mass/Vol] 213 mg/dL High 70-100 [facility] Comment on above: Result Comment: Test performed by glucose meter. Results may be 10%-15% lower than serum/plasma values. (CLIA ID [id number]) Performed By: #### H EMDF, LACT3, LIPA4, CMP3, BNP3, TROPN, CRP2 #### [facility] [address] [place] [address] Hemogramon 03-27-2020 Erythrocyte distribution width (RBC) [Ratio] 17.4 % High 11.5-14.5 [facility] Comment on above: Performed By: #### H EMDF, LACT3, LIPA4, CMP3, BNP3, TROPN, CRP2 #### [facility] [address] [place] [address] Hematocrit (Bld) [Volume fraction] 31.1 % Low 35.0-47.0 [facility] Comment on above: Performed By: #### H EMDF, LACT3, LIPA4, CMP3, BNP3, TROPN, CRP2 #### [facility] [address] [place] [address] Hemoglobin (Bld) [Mass/Vol] 9.5 g/dL Low 11.7-16.0 [facility] Comment on above: Performed By: #### H EMDF, LACT3, LIPA4, CMP3, BNP3, TROPN, CRP2 #### [facility] [address] [place] [address] MCH (RBC) [Entitic mass] 22.9 pg Low 26.0-34.0 [facility] Comment on above: Performed By: #### H EMDF, LACT3, LIPA4, CMP3, BNP3, TROPN, CRP2 #### [facility] [address] [place] [address] MCHC (RBC) [Mass/Vol] 30.6 % Low 32.0-36.0 [facility] Comment on above: Performed By: #### H EMDF, LACT3, LIPA4, CMP3, BNP3, TROPN, CRP2 #### [facility] [address] [place] [address] MCV (RBC) [Entitic vol] 74.8 fL Low 79.0-98.0 [facility] Comment on above: Performed By: #### H EMDF, LACT3, LIPA4, CMP3, BNP3, TROPN, CRP2 #### [facility] [address] [place] [address] Platelet mean volume (Bld) [Entitic vol] 9.2 fL Normal 7.4-10.4 [facility] Comment on above: Performed By: #### H EMDF, LACT3, LIPA4, CMP3, BNP3, TROPN, CRP2 #### [facility] [address] [place] [address] Platelets (Bld) [#/Vol] 251 10*3/uL Normal 140-440 [facility] Comment on above: Performed By: #### H EMDF, LACT3, LIPA4, CMP3, BNP3, TROPN, CRP2 #### [facility] [address] [place] [address] RBC (Bld) [#/Vol] 4.16 10*6/uL Normal 3.80-5.20 [facility] Comment on above: Performed By: #### H EMDF, LACT3, LIPA4, CMP3, BNP3, TROPN, CRP2 #### [facility] [address] [place] [address] WBC (Bld) [#/Vol] 13.9 10*3/uL High 3.6-10.7 [facility] Comment on above: Performed By: #### H EMDF, LACT3, LIPA4, CMP3, BNP3, TROPN, CRP2 #### [facility] [address] [place] [address] POCT Glucoseon 03-27-2020 Glucose [Mass/Vol] 61 mg/dL Low 70 - 100 mg/dL [facility], [place] Comment on above: Test performed by ucose meter. Results may be 10%-15% lower than serum/plasma values. (CLIA ID [id number]) Interpretation and review of laboratory results Abnormal [facility] [place], [place] Test Performed by [facility], [address] [place] [address] [facility] [place], [place] Glucose [Mass/Vol] 203 mg/dL High 70 - 100 mg/dL [facility] [place], [place] Comment on above: Test performed by gl ucose meter. Results may be 10%-15% lower than serum/plasma values. (CLIA ID [id number]) Interpretation and review of laboratory results Abnormal [facility] [place], [place] Test Performed by [facility], [address] [place] [address] [facility] [place], [place] Glucose [Mass/Vol] 273 mg/dL High 70 - 100 mg/dL [facility], [place] Comment on above: Test performed by gl ucose meter. Results may be 10%-15% lower than serum/plasma values. (CLIA ID [id number]) Interpretation and review of laboratory results Abnormal [facility] [place], [place] Test Performed by [facility], [address] [place], [place] [address] [facility] [place], [place] Glucose [Mass/Vol] 213 mg/dL High 70 - 100 mg/dL [facility], [place] Comment on above: Test performed by gl ucose meter. Results may be 10%-15% lower than serum/plasma values. (CLIA ID [id number]) Interpretation and review of laboratory results Abnormal [employer] [place], [place] Test Performed by [facility], [address] [place], [place] [address] [facility], ARELY COVID-19on 03-26-2020 SARS-CoV-2 Not Detected Expected Result: Not Detected _ Real-time, RT-PCR performed on the [employer] by the [facility]. Negative results do not preclude SARS-CoV-2 infection and should not be used as the sole basis for treatment or other patient management decisions. This assay was developed by [employer] and distributed under an Emergency Use Authorization (EUA) granted by the FDA for the qualitative detection of SARS-CoV-2 nucleic acid. [facility] [place], [place] Test Performed by [facility], [address] [place] [address] Specimen Source Comment:Nasopharyngeal Swab [place], [place] CR Chest Portableon 03-26-20 20 CR Chest Portable Patient Name: MARGARITA BETANCOURT Diagnostic Radiology Exam Date/Time 03/25/2020 22:02:51 EDT Exam CR Chest Portable Ordering Physician LEAH MAHAJAN DANIEL M Accession Number [id number] CPT4 Codes 52703 () Reason For Exam dyspnea, cough Report Chest one view HISTORY: Short of breath and cough Infiltrate in the right lung base may be from pneumonia. Left lung is clear. No pleural effusions. IMPRESSION: Infiltrate in the right lung base may be from pneumonia. Report Dictated on Workstation: [id number] Final Dictating Physician: MD GARCIA MALAY Signed Date and Time: 03/25/2020 10:05 pm Signed by: MD GARCIA MALAY Transcribed Date and Time: 03/25/2020 10:06 Normal [facility] Culture, Urineon 03-26-2020 Bacteria identified Cx Nom (U) No growth (<1,000 CFU/ml). [place], [place] Test Performed by [employer] [facility], [address] [place] [address] Specimen Source Comment:Urine, clean catch [place], [place] Glucose,Bedsideon 03-26-2020 Glucose [Mass/Vol] 250 mg/dL High 70-100 [facility] Comment on above: Result Comment: Test performed by glucose meter. Results may be 10%-15% lower than serum/plasma values. (CLIA ID [id number]) Performed By: #### H EMDF, LACT3, LIPA4, CMP3, BNP3, TROPN, CRP2 #### [facility] [address] [place] [address] Glucose [Mass/Vol] 213 mg/dL High 70-100 [facility] Comment on above: Result Comment: Test performed by glucose meter. Results may be 10%-15% lower than serum/plasma values. (CLIA ID [id number]) Performed By: #### H EMDF, LACT3, LIPA4, CMP3, BNP3, TROPN, CRP2 #### [facility] [address] [place] [address] Glucose [Mass/Vol] 402 mg/dL High 70-100 [facility] Comment on above: Result Comment: Test performed by glucose meter. Results may be 10%-15% lower than serum/plasma values. (CLIA ID [id number]) Performed By: #### H EMDF, LACT3, LIPA4, CMP3, BNP3, TROPN, CRP2 #### [facility] [address] [place] [address] Glucose [Mass/Vol] 365 mg/dL High 70-100 [facility] Comment on above: Result Comment: Test performed by glucose meter. Results may be 10%-15% lower than serum/plasma values. (CLIA ID [id number]) Performed By: #### H EMDF, LACT3, LIPA4, CMP3, BNP3, TROPN, CRP2 #### [facility] [address] [place] [address] Glucose [Mass/Vol] 427 mg/dL High 70-100 [facility] Comment on above: Result Comment: Test performed by glucose meter. Results may be 10%-15% lower than serum/plasma values. (CLIA ID [id number]) Performed By: #### H EMDF, LACT3, LIPA4, CMP3, BNP3, TROPN, CRP2 #### [facility] [address] [place] [address] POCT Glucoseon 03-26-2020 Glucose [Mass/Vol] 250 mg/dL High 70 - 100 mg/dL [place], [place] Comment on above: Test performed by gl ucose meter. Results may be 10%-15% lower than serum/plasma values. (CLIA ID [id number]) Interpretation and review of laboratory results Abnormal [place], [place] Test Performed by [facility] [employer] [facility], [address] [place], [place] [address] [place], [place] Glucose [Mass/Vol] 213 mg/dL High 70 - 100 mg/dL [place], [place] Comment on above: Test performed by gl ucose meter. Results may be 10%-15% lower than serum/plasma values. (CLIA ID [id number]) Interpretation and review of laboratory results Abnormal [employer] [place], [place] Test Performed by [facility], [address] [place], [place] [address] [facility] [place] Glucose [Mass/Vol] 402 mg/dL High 70 - 100 mg/dL [facility] [place], [place] Comment on above: Test performed by gl ucose meter. Results may be 10%-15% lower than serum/plasma values. (CLIA ID [id number]) Interpretation and review of laboratory results Abnormal [employer] [place], [place] Test Performed by [facility], [address] [place], [place] [address] [facility] [place], [place] Glucose [Mass/Vol] 365 mg/dL High 70 - 100 mg/dL [facility] [place] Comment on above: Test performed by gl ucose meter. Results may be 10%-15% lower than serum/plasma values. (CLIA ID [id number]) Interpretation and review of laboratory results Abnormal [employer], [place] Test Performed by [facility], [address] [place], [place] [address] [facility], [place] Glucose [Mass/Vol] 427 mg/dL High 70 - 100 mg/dL [facility], [place] Comment on above: Test performed by gl ucose meter. Results may be 10%-15% lower than serum/plasma values. (CLIA ID [id number]) Interpretation and review of laboratory results Abnormal [employer], [place] Test Performed by [facility], [address] [place], [place] [address] [place] [address], [place] RESPIRATORY PCR PANELon 03-05 RESPIRATORY PCR PANEL RESPIRATORY PCR [place] CHANCE --> Status: F POSITIVE: Human Rhinovirus/Enterovirus DETECTED. PLEASE NOTE: This assay DOES NOT detect SARS-CoV-2/COVID-19. _ The [employer] Upper Respiratory Pathogens PCR Panel can detect the following targets: Adenovirus, Coronavirus 229E, Coronavirus HKU1, Coronavirus NL63, Coronavirus OC43, Human Metapneumovirus, Human Rhinovirus/Enterovirus , Influenza A, Influenza B, Parainfluenza Virus 1, Parainfluenza Virus 2, Parainfluenza Virus 3, Parainfluenza Virus 4, Respiratory Syncytial Virus, Bordetella pertussis, Bordetella parapertussis, Chlamydia pneumoniae, Mycoplasma pneumoniae PLEASE NOTE: This assay DOES NOT detect SARS-CoV-2/COVID-19. _ The [employer] Upper Respiratory Pathogens PCR Panel can detect the following targets: Adenovirus, Coronavirus 229E, Coronavirus HKU1, Coronavirus NL63, Coronavirus OC43, Human Metapneumovirus, Human Rhinovirus/Enterovirus , Influenza A, Influenza B, Parainfluenza Virus 1, Parainfluenza Virus 2, Parainfluenza Virus 3, Parainfluenza Virus 4, Respiratory Syncytial Virus, Bordetella pertussis, Bordetella parapertussis, Chlamydia pneumoniae, Mycoplasma pneumoniae Abnormal [facility] Comment on above: Order Comment: Speci men Source Comment:Nasopharyngeal Performed By: #### B FRELeonard #### [address] [id number] Respiratory Virus PCR Panelo n 03-26-2020 Interpretation and review of laboratory results Abnormal [place], [place] Respiratory Panel PCR POSITIVE: Human Rhinovirus/Enterovirus DETECTED. PLEASE NOTE: This assay DOES NOT detect SARS-CoV-2/COVID-19. _ The [employer] Upper Respiratory Pathogens PCR Panel can detect the following targets: Adenovirus, Coronavirus 229E, Coronavirus HKU1, Coronavirus NL63, Coronavirus OC43, Human Metapneumovirus, Human Rhinovirus/Enterovirus , Influenza A, Influenza B, Parainfluenza Virus 1, Parainfluenza Virus 2, Parainfluenza Virus 3, Parainfluenza Virus 4, Respiratory Syncytial Virus, Bordetella pertussis, Bordetella parapertussis, Chlamydia pneumoniae, Mycoplasma pneumoniae Abnormal [place], [place] Test Performed by [facility], [address] [place] [id number] Specimen Source Comment:Nasopharyngeal [place], [place] [id number] 03-26-2020 SARS-CoV-2 SARS-CoV-2 --> Statu s: F Not Detected Expected Result: Not Detected _ Real-time, RT-PCR performed on the [employer] System by the [facility]. Negative results do not preclude SARS-CoV-2 infection and should not be used as the sole basis for treatment or other patient management decisions. This assay was developed by [employer] and distributed under an Emergency Use Authorization (EUA) granted by the FDA for the qualitative detection of SARS-CoV-2 nucleic acid. Expected Result: Not Detected _ Real-time, RT-PCR performed on the [employer] System by the [facility]. Negative results do not preclude SARS-CoV-2 infection and should not be used as the sole basis for treatment or other patient management decisions. This assay was developed by [employer] and distributed under an Emergency Use Authorization (EUA) granted by the FDA for the qualitative detection of SARS-CoV-2 nucleic acid. Normal [facility] Comment on above: Order Comment: Speci men Source Comment:Nasopharyngeal Swab Performed By: #### H EMDF, LACT3, LIPA4, CMP3, BNP3, TROPN, CRP2 #### [facility] [address] [place] [address] Brain Natriuretic Peptideon 03-25-2020 Interpretation and review of laboratory results Abnormal [place], [place] Natriuretic peptide B (Bld) [Mass/Vol] 1542 pg/mL High 0 - 450 pg/mL [place], [place] C-Reactive Proteinon 020 CRP [Mass/Vol] 176.3 mg/L High 0.0-6.0 [facility] Comment on above: Result Comment: . Performed By: #### H EMDF, LACT3, LIPA4, CMP3, BNP3, TROPN, CRP2 #### [facility] [address] [place] [address] CRP [Mass/Vol] 176.3 mg/L High 0 - 6 mg/L [place], [place] Comment on above: . Interpretation and review of laboratory results Abnormal [place], [place] Test Performed by [facility], [address] [place] [address] [place], [place] Comp Metabolic Panelon 03-25 ALP [Catalytic activity/Vol] 163 U/L High 38-126 [facility] Comment on above: Performed By: #### H EMDF, LACT3, LIPA4, CMP3, BNP3, TROPN, CRP2 #### [facility] [address] [place] [address] ALT [Catalytic activity/Vol] 10 U/L Normal 0-34 [facility] Comment on above: Result Comment: The ALT test is performed by an updated assay method. Please note that the reference intervals have been changed and are now sex specific. Performed By: #### H EMDF, LACT3, LIPA4, CMP3, BNP3, TROPN, CRP2 #### [facility] [address] [place] [address] Calcium [Mass/Vol] 9.1 mg/dL Normal 8.4-10.4 [facility] Comment on above: Performed By: #### H EMDF, LACT3, LIPA4, CMP3, BNP3, TROPN, CRP2 #### [facility] [address] [place] [address] Glucose [Mass/Vol] 93 mg/dL Normal 70-100 [facility] Comment on above: Performed By: #### H EMDF, LACT3, LIPA4, CMP3, BNP3, TROPN, CRP2 #### [facility] [address] [place] [address] Urea nitrogen [Mass/Vol] 14 mg/dL Normal 7-20 [facility] Comment on above: Performed By: #### H EMDF, LACT3, LIPA4, CMP3, BNP3, TROPN, CRP2 #### [facility] [address] [place] [address] Anion gap [Moles/Vol] 9 Normal [facility] Comment on above: Performed By: #### H EMDF, LACT3, LIPA4, CMP3, BNP3, TROPN, CRP2 #### [facility] [address] [place] [address] AST [Catalytic activity/Vol] 25 U/L Normal 15-46 [facility] Comment on above: Performed By: #### H EMDF, LACT3, LIPA4, CMP3, BNP3, TROPN, CRP2 #### [facility] [address] [place] [address] Bilirubin [Mass/Vol] 0.5 mg/dL Normal 0.2-1.3 [facility] Comment on above: Performed By: #### H EMDF, LACT3, LIPA4, CMP3, BNP3, TROPN, CRP2 #### [facility] [address] [place] [address] CO2 [Moles/Vol] 27 mmol/L Normal 22-30 [facility] Comment on above: Performed By: #### H EMDF, LACT3, LIPA4, CMP3, BNP3, TROPN, CRP2 #### [facility] [address] [place] [address] Creatinine [Mass/Vol] 1.00 mg/dL Normal 0.52-1.25 [facility] Comment on above: Performed By: #### H EMDF, LACT3, LIPA4, CMP3, BNP3, TROPN, CRP2 #### [facility] [address] [place] [address] GFR/1.73 sq M predicted among blacks MDRD (S/P/Bld) [Vol rate/Area] 61.6 mL/min/{1.73_m2} Normal >60 [facility] Comment on above: Performed By: #### H EMDF, LACT3, LIPA4, CMP3, BNP3, TROPN, CRP2 #### [facility] [address] [place] [address] GFR/1.73 sq M predicted among non-blacks MDRD (S/P/Bld) [Vol rate/Area] 53.1 mL/min/{1.73_m2} Abnormal >60 [facility] Comment on above: Result Comment: KDIG O guidelines provide the following GFR categories: Stage GFR(ml/min/1.73 m2) Terms G1 >=90 Normal or high G2 60-89 Mildly decreased* G3a 45-59 Mildly to moderately decreased G3b 30-44 Moderately to severely decreased G4 15-29 Severely decreased G5 <15 Kidney failure *Relative to young adult level. In the absence of evidence of kidney damage, neither GFR category G1 nor G2 fulfill the criteria for CKD. The CKD-EPI equation is validated in individuals 18 years of age and older. Currently the best equation for estimating glomerular filtration rate (GFR) from serum creatinine in children is the Bedside Atkins equation. It is less accurate in patients with extremes of muscle mass, restriction of dietary protein, ingestion of creatine, extra-renal metabolism of creatinine, or treatment with medications that affect renal tubular creatinine secretion. Performed By: #### H EMDF, LACT3, LIPA4, CMP3, BNP3, TROPN, CRP2 #### [facility] [address] [place] [address] Protein [Mass/Vol] 7.5 g/dL Normal 6.3-8.2 [facility] Comment on above: Performed By: #### H EMDF, LACT3, LIPA4, CMP3, BNP3, TROPN, CRP2 #### [facility] [address] [place] [address] Potassium [Moles/Vol] 4.0 mmol/L Normal 3.5-5.1 [facility] Comment on above: Performed By: #### H EMDF, LACT3, LIPA4, CMP3, BNP3, TROPN, CRP2 #### [facility] [address] [place] [address] Albumin [Mass/Vol] 3.8 g/dL Normal 3.5-5.0 [facility] Comment on above: Performed By: #### H EMDF, LACT3, LIPA4, CMP3, BNP3, TROPN, CRP2 #### [facility] [address] [place] [address] Chloride [Moles/Vol] 96 mmol/L Low 98-107 [facility] Comment on above: Performed By: #### H EMDF, LACT3, LIPA4, CMP3, BNP3, TROPN, CRP2 #### [facility] [address] [place] [address] Sodium [Moles/Vol] 132 mmol/L Low 135-145 [facility] Comment on above: Performed By: #### H EMDF, LACT3, LIPA4, CMP3, BNP3, TROPN, CRP2 #### [facility] [address] [place] [address] Complete Urinalysison 2019 Appearance (U) Clear Normal Clear [facility] Comment on above: Result Comment: . Performed By: #### C UA2 #### [facility] [address] [place] [address] Bilirubin,Urine Negative Normal Negative [facility] Comment on above: Result Comment: . Performed By: #### C UA2 #### [facility] [address] [place] [address] Color (U) Light-Yellow Normal Lt. Yellow [facility] Comment on above: Result Comment: . Performed By: #### C UA2 #### [facility] [address] [place] [address] Glucose Ql (U) 100 mg/dL Abnormal Normal (<70) [facility] Comment on above: Result Comment: . Performed By: #### C UA2 #### [facility] [address] [place] [address] Ketone,Urine 10 mg/dL Abnormal Negative [facility] Comment on above: Result Comment: . Performed By: #### C UA2 #### [facility] [address] [place] [address] Leukocytes,Urine Negative Normal Negative [facility] Comment on above: Result Comment: . Performed By: #### C UA2 #### [facility] [address] [place] [address] Mucous Threads Few Normal Negative [facility] Comment on above: Result Comment: . Performed By: #### C UA2 #### [facility] [address] [place] [address] Nitrites,Urine Negative Normal Negative [facility] Comment on above: Result Comment: . Performed By: #### C UA2 #### [facility] [address] [place] [address] Occult Blood,Urine 0.06 mg/dL Abnormal Negative [facility] Comment on above: Result Comment: . Performed By: #### C UA2 #### [facility] [address] [place] [address] pH (U) 6.5 Normal 5.0-8.0 [facility] Comment on above: Result Comment: . Performed By: #### C UA2 #### [facility] [address] [place] [address] Protein (U) [Mass/Vol] 10 mg/dL Abnormal Negative [facility] Comment on above: Result Comment: . Performed By: #### C UA2 #### [facility] [address] [place] [address] RBC LM.HPF (Urine sed) [#/Area] 3 - 5 Abnormal 0-2 [facility] Comment on above: Result Comment: . Performed By: #### C UA2 #### [facility] [address] [place] [address] Specific [place],Urine 1.012 Normal 1.005 - 1.030 [facility] Comment on above: Result Comment: . Performed By: #### C UA2 #### [facility] [address] [place] [address] Squamous Epithelial 0 - 2 Normal 3-5 [facility] Comment on above: Result Comment: . Performed By: #### C UA2 #### [facility] [address] [place] [address] Urobilinogen,Urine Normal Normal Normal (0-1) [facility] Comment on above: Result Comment: . Performed By: #### C UA2 #### [facility] [address] [place] [address] WBC LM.HPF (Urine sed) [#/Area] 0 - 2 Normal 0-5 [facility] Comment on above: Result Comment: . Performed By: #### C UA2 #### [facility] [address] [place] [address] Comprehensive Metabolic Pane logan 03-25-2020 Albumin [Mass/Vol] 3.8 g/dL 3.5 - 5 g/dL [place] ALP [Catalytic activity/Vol] 163 U/L High 38 - 126 U/L [place] ALT [Catalytic activity/Vol] 10 U/L 0 - 34 U/L [place] Comment on above: The ALT test is perf ormed by an updated assay method. Please note that the reference intervals have been changed and are now sex specific. Anion gap [Moles/Vol] 9 mmol/L [place] AST [Catalytic activity/Vol] 25 U/L 15 - 46 U/L [place] Bilirubin Ql (U) 0.5 mg/dL 0.2 - 1.3 mg/dL [place] Calcium [Mass/Vol] 9.1 mg/dL 8.4 - 10. 4 mg/dL [place] Chloride [Moles/Vol] 96 mmol/L Low 98 - 10 7 mmol/L [place] CO2 [Moles/Vol] 27 mmol/L 22 - 30 mmol/L [place] Creatinine [Mass/Vol] 1 mg/dL 0.52 - 1.25 mg/dL [place] EGFR IF NonAfrican [place] 53.1 mL/min Abnormal >60 [place] Comment on above: KDIGO guidelines pro vide the following GFR categories: Stage GFR(ml/min/1.73 m2) Terms G1 >=90 Normal or high G2 60-89 Mildly decreased* G3a 45-59 Mildly to moderately decreased G3b 30-44 Moderately to severely decreased G4 15-29 Severely decreased G5 <15 Kidney failure *Relative to young adult level. In the absence of evidence of kidney damage, neither GFR category G1 nor G2 fulfill the criteria for CKD. The CKD-EPI equation is validated in individuals 18 years of age and older. Currently the best equation for estimating glomerular filtration rate (GFR) from serum creatinine in children is the Bedside Atkins equation. It is less accurate in patients with extremes of muscle mass, restriction of dietary protein, ingestion of creatine, extra-renal metabolism of creatinine, or treatment with medications that affect renal tubular creatinine secretion. GFR/1.73 sq M predicted among blacks MDRD (S/P/Bld) [Vol rate/Area] 61.6 mL/min/{1.73_m2} >60 [place] Glucose [Mass/Vol] 93 mg/dL 70 - 100 mg/dL [place] Interpretation and review of laboratory results Abnormal [place] Potassium [Moles/Vol] 4.0 mmol/L 3.5 - 5.1 mmol/L [place] Protein [Mass/Vol] 7.5 g/dL 6.3 - 8.2 g/dL [place] Sodium [Moles/Vol] 132 mmol/L Low 135 - 145 mmol/L [place] Urea nitrogen [Mass/Vol] 14 mg/dL 7 - 20 mg/dL [place] Test Performed by [facility], [address], [place], [place] [address] [place] Hemogram (CBC) w/Auto Diffon 03-25-2020 Absolute Baso # 0.1 10*3/uL 0 - 0.2 10*3/uL [place] Absolute Neut # 13.6 10*3/uL High 1.8 - 7 10*3/uL [place] Basophils/100 WBC (Bld) 0.4 % 0 - 2 % [place] Eosinophils (Bld) [#/Vol] 0.5 10*3/uL 0 - 0.5 10*3/uL [place] Eosinophils/100 WBC (Bld) 2.7 % 1 - 6 % [place] Erythrocyte distribution width (RBC) [Ratio] 17.5 % High 11.5 - 14.5 % [place] Granulocytes/100 WBC (Bld) 78.5 % 40 - 80 % [place] Hematocrit (Bld) [Volume fraction] 39.3 % 35 - 47 % [place] Hemoglobin (Bld) [Mass/Vol] 12.3 g/dL 11.7 - 16 g/dL [place] Interpretation and review of laboratory results Abnormal [place] Lymphocytes (Bld) [#/Vol] 2.1 10*3/uL 1 - 4.3 10*3/uL [place] Lymphocytes/100 WBC (Bld) 12.0 % Low 20 - 40 % [place] MCH (RBC) [Entitic mass] 22.9 pg Low 26 - 34 pg [place] MCHC (RBC) [Mass/Vol] 31.2 % Low 32 - 36 % [place] MCV (RBC) [Entitic vol] 73.4 fL Low 79 - 98 fL [place] Monocytes (Bld) [#/Vol] 1.1 10*3/uL High 0 - 0.8 10*3/uL [place], [place] Monocytes/100 WBC (Bld) 6.4 % 2 - 10 % [place] Platelet mean volume (Bld) [Entitic vol] 9.2 fL 7.4 - 10.4 fL [place] Platelets (Bld) [#/Vol] 303 10*3/uL 140 - 440 10*3/uL [place] RBC (Bld) [#/Vol] 5.36 10*6/uL High 3.8 - 5.2 10*6/uL [place] WBC (Bld) [#/Vol] 17.3 10*3/uL High 3.6 - 10.7 10*3/uL [place] Test Performed by [facility], [address] [place] [address] [place] Hemogram w/ Autodiffon 03-25 Abs Baso Cnt 0.1 10*3/uL Normal 0.0-0.2 [facility] Comment on above: Performed By: #### H EMDF, LACT3, LIPA4, CMP3, BNP3, TROPN, CRP2 #### [facility] [address] [place] [address] Abs Neutrophile Cnt 13.6 10*3/uL High 1.8-7.0 [facility] Comment on above: Performed By: #### H EMDF, LACT3, LIPA4, CMP3, BNP3, TROPN, CRP2 #### [facility] [address] [place] [address] Basophils/100 WBC (Bld) 0.4 % Normal 0.0-2.0 [facility] Comment on above: Performed By: #### H EMDF, LACT3, LIPA4, CMP3, BNP3, TROPN, CRP2 #### [facility] [address] [place] [address] Eosinophils (Bld) [#/Vol] 0.5 10*3/uL Normal 0.0-0.5 [facility] Comment on above: Performed By: #### H EMDF, LACT3, LIPA4, CMP3, BNP3, TROPN, CRP2 #### [facility] [address] [place] [address] Eosinophils/100 WBC (Bld) 2.7 % Normal 1.0-6.0 [facility] Comment on above: Performed By: #### H EMDF, LACT3, LIPA4, CMP3, BNP3, TROPN, CRP2 #### [facility] [address] [place] [address] Erythrocyte distribution width (RBC) [Ratio] 17.5 % High 11.5-14.5 [facility] Comment on above: Performed By: #### H EMDF, LACT3, LIPA4, CMP3, BNP3, TROPN, CRP2 #### [facility] [address] [place] [address] Granulocytes/100 WBC (Bld) 78.5 % Normal 40.0-80.0 [facility] Comment on above: Performed By: #### H EMDF, LACT3, LIPA4, CMP3, BNP3, TROPN, CRP2 #### [facility] [address] [place] [address] Hematocrit (Bld) [Volume fraction] 39.3 % Normal 35.0-47.0 [facility] Comment on above: Performed By: #### H EMDF, LACT3, LIPA4, CMP3, BNP3, TROPN, CRP2 #### [facility] [address] [place] [address] Hemoglobin (Bld) [Mass/Vol] 12.3 g/dL Normal 11.7-16.0 [facility] Comment on above: Performed By: #### H EMDF, LACT3, LIPA4, CMP3, BNP3, TROPN, CRP2 #### [facility] [address] [place] [address] Lymphocytes (Bld) [#/Vol] 2.1 10*3/uL Normal 1.0-4.3 [facility] Comment on above: Performed By: #### H EMDF, LACT3, LIPA4, CMP3, BNP3, TROPN, CRP2 #### [facility] [address] [place] [address] Lymphocytes/100 WBC (Bld) 12.0 % Low 20.0-40.0 [facility] Comment on above: Performed By: #### H EMDF, LACT3, LIPA4, CMP3, BNP3, TROPN, CRP2 #### [facility] [address] [place] [address] MCH (RBC) [Entitic mass] 22.9 pg Low 26.0-34.0 [facility] Comment on above: Performed By: #### H EMDF, LACT3, LIPA4, CMP3, BNP3, TROPN, CRP2 #### [facility] [address] [place] [address] MCHC (RBC) [Mass/Vol] 31.2 % Low 32.0-36.0 [facility] Comment on above: Performed By: #### H EMDF, LACT3, LIPA4, CMP3, BNP3, TROPN, CRP2 #### [facility] [address] [place] [address] MCV (RBC) [Entitic vol] 73.4 fL Low 79.0-98.0 [facility] Comment on above: Performed By: #### H EMDF, LACT3, LIPA4, CMP3, BNP3, TROPN, CRP2 #### [facility] [address] [place] [address] Monocytes (Bld) [#/Vol] 1.1 10*3/uL High 0.0-0.8 [facility] Comment on above: Performed By: #### H EMDF, LACT3, LIPA4, CMP3, BNP3, TROPN, CRP2 #### [facility] [address] [place] [address] Monocytes/100 WBC (Bld) 6.4 % Normal 2.0-10.0 [facility] Comment on above: Performed By: #### H EMDF, LACT3, LIPA4, CMP3, BNP3, TROPN, CRP2 #### [facility] [address] [place] [address] Platelet mean volume (Bld) [Entitic vol] 9.2 fL Normal 7.4-10.4 [facility] Comment on above: Performed By: #### H EMDF, LACT3, LIPA4, CMP3, BNP3, TROPN, CRP2 #### [facility] [address] [place] [address] Platelets (Bld) [#/Vol] 303 10*3/uL Normal 140-440 [facility] Comment on above: Performed By: #### H EMDF, LACT3, LIPA4, CMP3, BNP3, TROPN, CRP2 #### [facility] [address] [place] [address] RBC (Bld) [#/Vol] 5.36 10*6/uL High 3.80-5.20 [facility] Comment on above: Performed By: #### H EMDF, LACT3, LIPA4, CMP3, BNP3, TROPN, CRP2 #### [facility] [address] [place] [address] WBC (Bld) [#/Vol] 17.3 10*3/uL High 3.6-10.7 [facility] Comment on above: Performed By: #### H EMDF, LACT3, LIPA4, CMP3, BNP3, TROPN, CRP2 #### [facility] [address] [place] [address] Lactic Acidon 03-25-2020 Lactate [Moles/Vol] 1.4 mmol/L Normal 0.7-2.0 [facility] Comment on above: Performed By: #### H EMDF, LACT3, LIPA4, CMP3, BNP3, TROPN, CRP2 #### [facility] [address] [place] [address] Lactic Acid, Plasmaon 2019 Lactate [Moles/Vol] 1.4 mmol/L 0.7 - 2 mmol/L [place] Test Performed by [facility], [address] [place] [address] [place] Lipaseon 03-25-2020 Lipase [Catalytic activity/Vol] 38 U/L Normal 23-300 [facility] Comment on above: Performed By: #### H EMDF, LACT3, LIPA4, CMP3, BNP3, TROPN, CRP2 #### [facility] [address] [place] [address] Lipase [Catalytic activity/Vol] 38 U/L 23 - 300 U/L [facility] [place] Test Performed by [facility], [address] [place], [place] [address] [place] NT pro BNPon 03-25-2020 Natriuretic peptide B (Bld) [Mass/Vol] 1542 pg/mL High 0-450 [facility] Comment on above: Performed By: #### H EMDF, LACT3, LIPA4, CMP3, BNP3, TROPN, CRP2 #### [facility] [address] [place] [address] Otheron 03-25-2020 Test Performed by [facility], [address] [place], [place] [address] [place] Troponin Ion 03-25-2020 Troponin I.cardiac [Mass/Vol] ng/mL Normal 0.000-0.034 [facility] Comment on above: Result Comment: . Performed By: #### H EMDF, LACT3, LIPA4, CMP3, BNP3, TROPN, CRP2 #### [facility] [address] [place] [address] Troponin x1on 03-25-2020 Troponin I.cardiac [Mass/Vol] ng/mL 0 - 0.034 ng/mL [place] Comment on above: . Urinalysison 03-25-2020 Appearance (U) Clear Clear NA [place] Comment on above: . Bilirubin Urine Negative Negative mg/dL [place] Comment on above: . Color (U) Light-Yellow Lt. Yellow NA [place] Comment on above: . Glucose, Ur 100 mg/dL Abnormal Normal (<70) [place] Comment on above: . Interpretation and review of laboratory results Abnormal [place] Ketones Ql (U) 10 mg/dL Abnormal Negative [place] Comment on above: . LEUKOCYTES, UA Negative Negative [place]/uL [place] Comment on above: . Mucous Threads Few Negative /[LPF] [place] Comment on above: . Nitrite, Urine Negative Negative NA [place] Comment on above: . Occult Blood,Urine 0.06 mg/dL Abnormal Negative [place] Comment on above: . pH (U) 6.5 [pH] [place] Comment on above: . Protein (U) [Mass/Vol] 10 mg/dL Abnormal Negative [place] Comment on above: . RBC (U) [#/Vol] 3-5 Abnormal 0 - 2 /[HPF] [place] Comment on above: . Specific [place], Urine 1.012 [place] Comment on above: . Squam Epithel, UA 0-2 3 - 5 /[HPF] [place] Comment on above: . Urobilinogen, Urine Normal Normal ( 0-1) mg/dL [place] Comment on above: . WBC, UA 0-2 0 - 5 /[HPF] [place] Comment on above: . Test Performed by [facility], [address] [place], [place] [address] [place] XR CHEST PORTABLEon 03-25-20 Patient Name: MARGARITA BETANCOURT ---Diagnostic Radiology--- Exam Date/Time 03/25/2020 22:02:51 EDT Exam CR Chest Portable Ordering Physician LEAH MAHAJAN DANIEL M Accession Number [id number] CPT4 Codes 00917 () Reason For Exam dyspnea, cough Report Chest one view HISTORY: Short of breath and cough Infiltrate in the right lung base may be from pneumonia. Left lung is clear. No pleural effusions. IMPRESSION: Infiltrate in the right lung base may be from pneumonia. Report Dictated on Workstation: [id number] --- Final --- Dictating Physician: MD GARCIA MALAY Signed Date and Time: 03/25/2020 10:05 pm Signed by: MD GARCIA MALAY Transcribed Date and Time: 03/25/2020 10:06 [place], [place], [facility] 10:07 PM EDT Patient Name: MARGARITA BETANCOURT ---Diagnostic Radiology--- Exam Date/Time 03/25/2020 22:02:51 EDT Exam CR Chest Portable Ordering Physician LEAH MAHAJAN DANETTE Boyce Accession Number [id number] CPT4 Codes 64234 () Reason For Exam dyspnea, cough Report Chest one view HISTORY: Short of breath and cough Infiltrate in the right lung base may be from pneumonia. Left lung is clear. No pleural effusions. IMPRESSION: Infiltrate in the right lung base may be from pneumonia. Report Dictated on Workstation: [id number] --- Final --- Dictating Physician: MD GARCIA MALAY Signed Date and Time: 03/25/2020 10:05 pm Signed by: MD GARCIA MALAY Transcribed Date and Time: 03/25/2020 10:06 [place], [place] Clinical Summary: HMSPatient IDon [id number] [facility] Work Phone: Office Visit: Postop - 1st v isit, Rm: 8on 03-18-2019 NEGATED: Highlighted rowTobacco smoking status [facility] Tobacco smoking status [facility] Work Phone: ED Provider Noteon 07-31 8 ED Provider Note -- Attestation signed by Yuliya Phipps MD at 08/01/2018 8:09 AM I independently examined and evaluated Margraita Betancourt. In brief, this patient is complaining of bilateral lower extremity from the knees down she is accompanied by family members who confirm that this is been going on for a few weeks. He tells me that its been about 2 weeks. She has shortness of breath which her son tells me has been at least months if not longer. Focused exam revealed +2 pitting edema bilateral lower extremities. Lungs were clear to auscultation bilaterally. All diagnostic, treatment, and disposition decisions were made by myself in conjunction with the resident physician/advanced practice provider. For all further details of the patient's emergency department visit, please see the advanced practice provider's documentation. Comment: Please note this report has been produced using speech recognition software and may contain errors related to that system including errors in grammar, punctuation, and spelling, as well as words and phrases that may be inappropriate. If there are any questions or concerns please feel free to contact the dictating provider for clarification. [facility]ita Bet[facility]ourt : 1940 Date of Evaluation: 07/31/2018 ED GALLO Provider: Roni Nuñez PA-C EDcare was supervised by Dr. Phipps who independently examined and evaluated the patient. Please see their attestation note for further details. Chief Complaint Chief Complaint Patient presents with ? Leg Swelling [place] Margarita Betancourt is a 78 y.o. female whopresents to the emergency department For evaluation of bilateral leg swelling that has been present for one week now. Patient has a history of dementia but son is at the bedside providing history as well. Patient is able to provide an adequate amount of history however. She states that she is in no pain at this time is a pain scale cannot be assessed but the swelling in the lower extremities that is new. 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 Patient contacted her primary care physician who sent her here to the wrist department to be admitted. Family is also concern for urinary tract infection even though the patient denies any urinary complaints. She has no known history of congestive heart failure. She is not feeling short of breath or having chest pain. She denies any fevers. No abdominal pain. No nausea vomiting. No coughing or wheezing. No urinary complaints. No pain to her lower extremities. ROS: Review of Systems At least 9 systems reviewed and otherwise acutely negative except as in the [place]. Past History Past Medical History: Diagnosis Date ? Asthma ? Blood clot in vein ? Dementia ? Depression ? Diabetes mellitus (HCC) ? 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 Hypertension Past Surgical History: Procedure Laterality Date ? HYSTERECTOMY ? JOINT REPLACEMENT Social History Social History ? Marital status: Spouse name: N/A ? Number of children: N/A ? Years of education: N/A Social History Main Topics ? Smoking status: Never Smoker ? Smokeless tobacco: Never Used ? Alcohol use No ? Drug use: No ? Sexual activity: Not Asked Other Topics Concern ? None Social History Narrative ? None Medications/Allergies Previous Medications ACETAMINOPHEN (TYLENOL) 325 MG TABLET Take 2 tablets by mouth every 4 hours as needed (pain) AMLODIPINE (NORVASC) 5 MG TABLET Take 5 mg by mouth daily CITALOPRAM (CELEXA) 40 MG TABLET Take 1 tablet by mouth daily INSULIN GLARGINE (LANTUS) 100 UNIT/ML INJECTION VIAL Inject 24 Units into the skin nightly INSULIN LISPRO (HUMALOG) 100 UNIT/ML INJECTION VIAL Inject 12 Units into the skin every morning (before breakfast) INSULIN LISPRO (HUMALOG) 100 UNIT/ML INJECTION VIAL Inject 12 Units into the skin Daily with lunch INSULIN LISPRO (HUMALOG) 100 UNIT/ML INJECTION VIAL Inject 12 Units into the skin Daily with supper IPRATROPIUM-ALBUTEROL (DUONEB) 0.5-2.5 (3) MG/3ML SOLN NEBULIZER SOLUTION Inhale 3 mLs into the lungs every 4 hours as needed for Shortness of Breath or Other (wheezing) LISINOPRIL (PRINIVIL;ZESTRIL) 20 MG TABLET Take 20 mg by mouth daily MAGNESIUM HYDROXIDE (MILK OF MAGNESIA) 400 MG/5ML SUSPENSION Take 30 mLs by mouth daily as needed for Constipation METOPROLOL TARTRATE (LOPRESSOR) 50 MG TABLET Take 1 tablet by mouth 2 times daily OMEPRAZOLE (PRILOSEC) 20 MG DELAYED RELEASE CAPSULE Take 40 mg by mouth daily OXYBUTYNIN (DITROPAN-XL) 10 MG EXTENDED RELEASE TABLET Take 1 tablet by mouth daily SERTRALINE (ZOLOFT) 100 MG TABLET Take 100 mg by mouth daily WARFARIN (COUMADIN) 3 MG TABLET Take 0.5 tablets by mouth daily Allergies Allergen Reactions ? Demerol Hcl [Meperidine] Physical Exam ED Triage Vitals [07/31/18 1536] BP Temp Temp Source Pulse Resp SpO2 Height Weight (!) 157/73 98.5 ?F (36.9 ?C) Temporal 57 22 96 % -- 200 lb (90.7 kg) Physical Exam General: Patient appears to be well-developed and well-nourished. Patient does not appear to be in acute distress. Vital signs noted and reveals no tachycardia, hypoxia or fevers. Respiratory rate of 22 noted. States that she is in no pain. HEENT: Head appears normocephalic/atraumat ic. External ears and nose normal. Oropharynx clear and moist. Neck is supple with no cervical lymphadenopathy. Pupils are round and reactive to light. Cardiac: Regular rate and rhythm. No murmurs heard. Distal pulses intact bilaterally. Pulmonary: Lungs are clear to auscultation. No wheezes or rales heard. Patient does not appear to be in acute respiratory distress. No tachypnea accessory muscle use noted. Abdomen: Bowel sounds heard all 4 quadrants. Abdomen is soft and nontender. No rigidity or guarding noted. Extremities: 2+ pitting edema noted to the lower extremities bilaterally. The lower extremities are equal in size. Normal dorsalis pedis and posterior tibialis pulses bilaterally. Extremities appear to be well perfused. Skin: Warm and dry. No wounds, abrasions, lacerations, rashes noted to skin. Neurologic: Alert and oriented ?3. Psychiatric: Mood and behavior normal Diagnostics Labs: Results for orders placed or performed during the hospital encounter of 07/31/18 Hemogram (CBC) w/Auto Diff Result Value Ref Range WBC 7.3 3.6 - 10.7 10*3/uL RBC 4.69 3.80 - 5.20 10*6/uL Hemoglobin 11.6 (L) 11.7 - 16.0 g/dL Hematocrit 35.9 35.0 - 47.0 % MCV 76.6 (L) 79.0 - 98.0 fL MCH 24.8 (L) 26.0 - 34.0 pg MCHC 32.4 32.0 - 36.0 % RDW 17.7 (H) 11.5 - 14.5 % Platelets 226 140 - 440 10*3/uL MPV 9.8 7.4 - 10.4 fL Granulocytes % 61.6 40.0 - 80.0 % Lymphocyte % 22.8 20.0 - 40.0 % Monocytes 10.8 (H) 2.0 - 10.0 % Eosinophils 4.1 1.0 - 6.0 % Basophils 0.7 0.0 - 2.0 % Absolute Neut # 4.5 1.8 - 7.0 10*3/uL Absolute Lymph # 1.7 1.0 - 4.3 10*3/uL Absolute [place] # 0.8 0.0 - 0.8 10*3/uL Absolute Eos # 0.3 0.0 - 0.5 10*3/uL Absolute Baso # 0.0 0.0 - 0.2 10*3/uL Basic Metabolic Panel Result Value Ref Range Sodium 133 (L) 137 - 145 mmol/L Potassium 4.1 3.5 - 5.1 mmol/L Chloride 100 98 - 107 mmol/L CO2 29 22 - 30 mmol/L Anion Gap 4 NA Glucose 92 70 - 100 mg/dL BUN 36 (H) 7 - 20 mg/dL CREATININE 1.22 0.52 - 1.25 mg/dL eGFR 51.6 >60 mL/min EGFR IF NonAfrican Monegasque 42.6 >60 mL/min Calcium 9.1 8.4 - 10.4 mg/dL Brain Natriuretic Peptide Result Value Ref Range NT Pro-BNP 2,395 (H) 0 - 450 pg/mL Radiographs: Xr Chest Standard (2 Vw) Result Date: 07/31/2018 Patient Name: MARGARITA BETANCOURT ---Diagnostic Radiology--- Exam Date/Time 07/31/2018 18:00:09 EST Exam CR Chest PA/LAT Ordering Physician MD PHIPPS MAMIE Accession Number [id number] CPT4 Codes 66511 () Reason For Exam sob, hi bnp Report AP and lateral views of the chest, 07/31/2018. Reason for examination: Shortness of breath. Leg swelling. COMPARISON: April 15, 2018. FINDINGS: Cardiac size is within normal limits. Pulmonary vasculature is normal. Lungs are free of infiltrate. No pleural effusion or pneumothorax is noted. There may be mild scarring or atelectasis in the left lung base. Evaluation is limited by technique and body habitus. There are mild degenerative changes in the thoracic spine. There is a mild to moderate compression deformity of one of the lower thoracic vertebral bodies, possibly T12. Chronicity is uncertain. IMPRESSION: Possible mild scarring or atelectasis in the left lung base. Report Dictated on --- Final --- Dictating Physician: MD OBRIEN JOE M Signed Date and Time: 07/31/2018 6:35 pm Signed by: MD OBRIEN JOE M Transcribed Date and Time: 07/31/2018 6:36 EKG: All EKG's areinterpreted by the Emergency Department Physician in the absence of a director franchise sales.?Please see their note for interpretation of EKG. ED Course and MDM In brief, Margarita Betancourt dario 78 y.o. female who presented to the emergency department For evaluation of lower extremity swelling bilaterally. This has been present for one week. She was sent here by primary care physician to be admitted. She has no known history of congestive heart failure. She has no respiratory complaints at this time. She states that she is in no pain. On exam, patient is resting complaining the bed in no acute distress. Vital signs noted improvement unremarkable. She is in no pain. Lungs are clear to auscultation. Heart regular rate and rhythm. There is 2+ pitting edema noted to the bilateral upper extremities. Equal in size. Normal pulses. At this time, blood work was ordered including urinalysis and chest x-ray. Complete blood count shows no leukocytosis. Stable hemoglobin. BMP unremarkable compared to previous result on 04/15/2018. The BNP is elevated 2395. Because of this, chest x-ray was added on. Showed possible mild scarring or atelectasis in the left lung base. Patient is not feeling short of breath having chest pain. I spoke to Dr. Mckinney concerning this patient and she was aware that Dr. Krishnamurthy wanted her to be admitted. Patient will be admitted to Dr. Krishnamurthy's service on a telemetry bed since this may be a component of congestive heart failure. She will continue to be monitored while in the Emergency Room. She is in no acute distress at this time. ED Medication Orders Start Ordered Status Ordering Provider 07/31/18 1612 07/31/18 1611 sodium chloride flush 0.9 % injection 3 mL EVERY 8 HOURS Acknowledged RONI NUÑEZ Final Impression 1. Bilateral lower extremity edema DISPOSITION Admitted 07/31/2018 06:40:24 PM (Please note that portions of this note may have been completed with a voice recognition program. Efforts were made to edit the dictations but occasionally words aremis-transcribed.) Roni Nuñez PA-C [employer] Roni Nuñez PA-C 07/31/182015 [facility] Vital Signs Date Time Vital Sign Value Performing Clinician Zara machuca 02-18-2025 14:28-0400 Body height 157.5 cm Jonn Wenceslao DO Work Phone: [facility] 02-18-2025 14:28-0400 Body mass index (BMI) [Ratio] 30 kg/m2 Jonn Wenceslao DO Work Phone: [facility] 02-18-2025 14:28-0400 Body temperature 99.3 [degF] Springlake Wenceslao DO Work Phone: [facility] 02-18-2025 14:28-0400 Body weight 74.39 kg Springlake Wenceslao DO Work Phone: [facility] 02-18-2025 14:28-0400 Diastolic blood pressure 80 mm[Hg] Jonn Wenceslao DO Work Phone: [facility] 02-18-2025 14:28-0400 Heart rate 85 /min Jonn Wenceslao DO Work Phone: [facility] 02-18-2025 14:28-0400 SaO2% (BldA) [Mass fraction] 94 % Jonn Wenceslao DO Work Phone: [facility] 02-18-2025 14:28-0400 Systolic blood pressure 130 mm[Hg] Jonn Wenceslao DO Work Phone: [facility] 01-02-2025 13:58-0400 Body temperature 98.8 [degF] Vivi Peoples PT Work Phone: [facility] 01-02-2025 13:58-0400 Diastolic blood pressure 90 mm[Hg] Vivi Peoples PT Work Phone: [facility] 01-02-2025 13:58-0400 Heart rate 83 /min Vivi Peoples PT Work Phone: [facility] 01-02-2025 13:58-0400 Respiratory rate 16 /min Vivi Peoples PT Work Phone: [facility] 01-02-2025 13:58-0400 SaO2% (BldA) [Mass fraction] 96 % Vivi Peoples PT Work Phone: [facility] 01-02-2025 13:58-0400 Systolic blood pressure 124 mm[Hg] Vivi Peoples PT Work Phone: [facility] 12-31-2024 11:12-0400 Diastolic blood pressure 84 mm[Hg] Reta Gerstenslager OT Work Phone: [facility] 12-31-2024 11:12-0400 Heart rate 85 /min Reta Gerstenslager OT Work Phone: [facility] 12-31-2024 11:12-0400 SaO2% (BldA) [Mass fraction] 95 % Reta Gerstenslager OT Work Phone: [facility] 12-31-2024 11:12-0400 Systolic blood pressure 128 mm[Hg] Reta Gerstenslager OT Work Phone: [facility] 12-31-2024 10:47-0400 Body temperature 99.61 [degF] Reta Gerstenslager OT Work Phone: [facility] 12-25-2024 10:34-0400 Body temperature 98.1 [degF] Radha Becker RN Work Phone: [facility] 12-25-2024 10:34-0400 Diastolic blood pressure 74 mm[Hg] Radha Becker RN Work Phone: [facility] 12-25-2024 10:34-0400 Heart rate 55 /min Radha Becker RN Work Phone: [facility] 12-25-2024 10:34-0400 Respiratory rate 18 /min Radha Becker RN Work Phone: [facility] 12-25-2024 10:34-0400 SaO2% (BldA) [Mass fraction] 94 % Radha Becker RN Work Phone: [facility] 12-25-2024 10:34-0400 Systolic blood pressure 126 mm[Hg] Radha Becker RN Work Phone: [facility] 12-24-2024 10:35-0400 Heart rate 67 /min Alena Oviedo DIAZ/L Work Phone: [facility] Comment on above: post tasks 12-24-2024 10:35-0400 SaO2% (BldA) [Mass fraction] 95 % Alena Oviedo DIAZ/L Work Phone: [facility] Comment on above: post tasks 12-24-2024 10:02-0400 Body temperature 98.01 [degF] Alena Oviedo DIAZ/L Work Phone: [facility] 12-24-2024 10:02-0400 Diastolic blood pressure 82 mm[Hg] Alena Oviedo DIAZ/L Work Phone: [facility] 12-24-2024 10:02-0400 Respiratory rate 16 /min Alena Oviedo DIAZ/L Work Phone: [facility] 12-24-2024 10:02-0400 Systolic blood pressure 138 mm[Hg] Alena Oviedo DIAZ/L Work Phone: [facility] 12-23-2024 10:18-0400 Diastolic blood pressure 86 mm[Hg] Lorraine Jose PT Work Phone: [facility] 12-23-2024 10:18-0400 Heart rate 74 /min Lorraine Jose PT Work Phone: [facility] 12-23-2024 10:18-0400 SaO2% (BldA) [Mass fraction] 94 % Lorraine Jose PT Work Phone: [facility] 12-23-2024 10:18-0400 Systolic blood pressure 140 mm[Hg] Lorraine Garcia PT Work Phone: [facility] 12-23-2024 09:52-0400 Body temperature 98.01 [degF] Lorraine Jose PT Work Phone: [facility] 12-17-2024 14:42-0400 Diastolic blood pressure 90 mm[Hg] Caroline Keo DRY CLEANING CHECKER Work Phone: [facility] Comment on above: post session 12-17-2024 14:42-0400 Heart rate 70 /min Caroline Keo DRY CLEANING CHECKER Work Phone: [facility] 12-17-2024 14:42-0400 SaO2% (BldA) [Mass fraction] 93 % Caroline Keo DRY CLEANING CHECKER Work Phone: [facility] 12-17-2024 14:42-0400 Systolic blood pressure 132 mm[Hg] Caroline Keo DRY CLEANING CHECKER Work Phone: [facility] Comment on above: post session 12-17-2024 14:09-0400 Body temperature 98.71 [degF] Caroline Keo DRY CLEANING CHECKER Work Phone: [facility] 12-16-2024 12:03-0400 Diastolic blood pressure 66 mm[Hg] Radha Becker RN Work Phone: [facility] 12-16-2024 12:03-0400 Heart rate 60 /min Radha Becker RN Work Phone: [facility] 12-16-2024 12:03-0400 Respiratory rate 16 /min Radha Becker RN Work Phone: [facility] 12-16-2024 12:03-0400 SaO2% (BldA) [Mass fraction] 94 % Radha Becker RN Work Phone: [facility] 12-16-2024 12:03-0400 Systolic blood pressure 116 mm[Hg] Radha Becker RN Work Phone: [facility] 12-10-2024 15:50-0400 Body temperature 97.3 [degF] Vivi Quevedo-Mcguire PT Work Phone: [facility] 12-10-2024 15:50-0400 Diastolic blood pressure 80 mm[Hg] Vivi Quevedo-Mcguire PT Work Phone: [facility] 12-10-2024 15:50-0400 Heart rate 65 /min Vivi Quevedo-Mcguire PT Work Phone: [facility] 12-10-2024 15:50-0400 Respiratory rate 16 /min Vivi Quevedo-Mcguire PT Work Phone: [facility] 12-10-2024 15:50-0400 SaO2% (BldA) [Mass fraction] 95 % Vivi Quevedo-Mcguire PT Work Phone: [facility] 12-10-2024 15:50-0400 Systolic blood pressure 120 mm[Hg] Vivi Quevedo-Mcguire PT Work Phone: [facility] 12-10-2024 15:26-0400 Body temperature 97.3 [degF] Reta Gerstenslager OT Work Phone: [facility] 12-10-2024 15:26-0400 Diastolic blood pressure 80 mm[Hg] Reta Gerstenslager OT Work Phone: [facility] 12-10-2024 15:26-0400 Heart rate 63 /min Reta Gerstenslager OT Work Phone: [facility] 12-10-2024 15:26-0400 SaO2% (BldA) [Mass fraction] 95 % Reta Gerstenslager OT Work Phone: [facility] 12-10-2024 15:26-0400 Systolic blood pressure 122 mm[Hg] Reta Gerstenslager OT Work Phone: [facility] 12-10-2024 14:43-0400 Body mass index (BMI) [Ratio] 29.85 kg/m2 Radha Becker RN Work Phone: [facility] 12-10-2024 14:43-0400 Body weight 74.02 kg Radha Becker RN Work Phone: [facility] 12-10-2024 14:43-0400 Diastolic blood pressure 60 mm[Hg] Radha Becker RN Work Phone: [facility] 12-10-2024 14:43-0400 Heart rate 62 /min Radha Becker RN Work Phone: [facility] 12-10-2024 14:43-0400 Respiratory rate 16 /min Radha Becker RN Work Phone: [facility] 12-10-2024 14:43-0400 SaO2% (BldA) [Mass fraction] 94 % Radha Becker RN Work Phone: [facility] 12-10-2024 14:43-0400 Systolic blood pressure 118 mm[Hg] Radha Becker RN Work Phone: [facility] 12-06-2024 13:12-0400 Body temperature 98.4 [degF] Maribeth Deruby RN Work Phone: [facility] 12-06-2024 13:12-0400 Diastolic blood pressure 60 mm[Hg] Maribeth Deuri RN Work Phone: [facility] 12-06-2024 13:12-0400 Heart rate 70 /min Maribeth Deuri RN Work Phone: [facility] 12-06-2024 13:12-0400 Respiratory rate 16 /min Maribeth Deuri RN Work Phone: [facility] 12-06-2024 13:12-0400 SaO2% (BldA) [Mass fraction] 94 % Maribeth Deuri RN Work Phone: [facility] 12-06-2024 13:12-0400 Systolic blood pressure 116 mm[Hg] Maribeth Deuri RN Work Phone: [facility] 11-19-2024 10:37-0400 Body temperature 97.5 [degF] Anis Katirai MD Work Phone: [employer] 11-19-2024 10:37-0400 Diastolic blood pressure 71 mm[Hg] Marissa Angulo MD Work Phone: [employer] 11-19-2024 10:37-0400 Heart rate 79 /min Marissa Angulo MD Work Phone: [employer] 11-19-2024 10:37-0400 SaO2% (BldA) [Mass fraction] 95 % Marissa Angulo MD Work Phone: [employer] 11-19-2024 10:37-0400 Systolic blood pressure 119 mm[Hg] Marissa Angulo MD Work Phone: [employer] 11-19-2024 08:27-0400 Respiratory rate 16 /min Marissa Angulo MD Work Phone: [employer] 11-12-2024 00:47-0400 Body height 154.9 cm Marissa Angulo MD Work Phone: [employer] 11-12-2024 00:47-0400 Body mass index (BMI) [Ratio] 30.8 kg/m2 Marissa Angulo MD Work Phone: [employer] 11-12-2024 00:47-0400 Body weight 73.94 kg Marissa Angulo MD Work Phone: [facility] [employer] 06-11-2024 15:02-0400 Diastolic blood pressure 88 mm[Hg] Springlake Wenceslao DO Work Phone: [facility] Comment on above: right arm 06-11-2024 15:02-0400 Systolic blood pressure 138 mm[Hg] Springlake Wenceslao DO Work Phone: [facility] Comment on above: right arm 06-11-2024 14:16-0400 Body mass index (BMI) [Ratio] 29.26 kg/m2 Jonn Wenceslao DO Work Phone: [facility] 06-11-2024 14:16-0400 Body temperature 98.01 [degF] Springlake Wenceslao DO Work Phone: [facility] 06-11-2024 14:16-0400 Body weight 72.58 kg Jonn Wenceslao DO Work Phone: [facility] 06-11-2024 14:16-0400 Heart rate 79 /min Springlake Wenceslao DO Work Phone: [facility] 06-11-2024 14:16-0400 SaO2% (BldA) [Mass fraction] 95 % Springlake Wenceslao DO Work Phone: [facility] 05-29-2024 12:59-0400 Diastolic blood pressure 90 mm[Hg] John Doan MD Work Phone: [facility] 05-29-2024 12:59-0400 Heart rate 75 /min John Doan MD Work Phone: [facility] 05-29-2024 12:59-0400 Respiratory rate 16 /min John Doan MD Work Phone: [facility] 05-29-2024 12:59-0400 SaO2% (BldA) [Mass fraction] 95 % John Doan MD Work Phone: [facility] 05-29-2024 12:59-0400 Systolic blood pressure 157 mm[Hg] John Doan MD Work Phone: [facility] 05-23-2024 11:27-0400 Diastolic blood pressure 88 mm[Hg] Jonn Wenceslao DO Work Phone: [facility] 05-23-2024 11:27-0400 Systolic blood pressure 120 mm[Hg] Springlake Wenceslao DO Work Phone: [facility] 05-23-2024 11:04-0400 Heart rate 76 /min Springlake Wenceslao DO Work Phone: [facility] 05-23-2024 11:04-0400 SaO2% (BldA) [Mass fraction] 96 % Springlake Wenceslao DO Work Phone: [facility] 04-19-2024 11:04-0400 Body height 157.5 cm Jonn Wenceslao DO Work Phone: [facility] 04-19-2024 11:04-0400 Body mass index (BMI) [Ratio] 29.08 kg/m2 Springlake Wenceslao DO Work Phone: [facility] 04-19-2024 11:04-0400 Body weight 72.12 kg Springlake Wenceslao DO Work Phone: [facility] 04-19-2024 11:04-0400 Diastolic blood pressure 80 mm[Hg] Jonn Wenceslao DO Work Phone: [facility] 04-19-2024 11:04-0400 Heart rate 87 /min Springlake Wenceslao DO Work Phone: [facility] 04-19-2024 11:04-0400 SaO2% (BldA) [Mass fraction] 94 % Springlake Wenceslao DO Work Phone: [facility] 04-19-2024 11:04-0400 Systolic blood pressure 122 mm[Hg] Jonn Wenceslao DO Work Phone: [facility] 11-24-2023 11:11-0400 Body height 157.5 cm Jonn Wenceslao DO Work Phone: [facility] 11-24-2023 11:11-0400 Body temperature 98.01 [degF] Jonn Wenceslao DO Work Phone: [facility] 11-24-2023 11:11-0400 Body weight 81.19 kg Jonn Wenceslao DO Work Phone: [facility] 11-24-2023 11:11-0400 Heart rate 61 /min Springlake Wenceslao DO Work Phone: [facility] 11-24-2023 11:11-0400 SaO2% (BldA) [Mass fraction] 96 % Springlake Wenceslao DO Work Phone: [facility] 07-05-2023 09:01-0400 Body height 157.5 cm Jonn Wenceslao DO Work Phone: [facility] 07-05-2023 09:01-0400 Body temperature 98.6 [degF] Springlake Wenceslao DO Work Phone: [facility] 07-05-2023 09:01-0400 Body weight 75.3 kg Springlake Wenceslao DO Work Phone: [facility] 07-05-2023 09:01-0400 Diastolic blood pressure 90 mm[Hg] Springlake Wenceslao DO Work Phone: [facility] 07-05-2023 09:01-0400 Heart rate 78 /min Jonn Wenceslao DO Work Phone: [facility] 07-05-2023 09:01-0400 SaO2% (BldA) [Mass fraction] 98 % Jonn Wenceslao DO Work Phone: [facility] 07-05-2023 09:01-0400 Systolic blood pressure 130 mm[Hg] Jonn Wenceslao DO Work Phone: [facility] 11-09-2022 08:38-0500 Body height 157.5 cm Springlake Wenceslao DO Work Phone: [facility] 11-09-2022 08:38-0500 Body temperature 97.59 [degF] Jonn Wenceslao DO Work Phone: [facility] 11-09-2022 08:38-0500 Body weight 78.93 kg Jonn Wenceslao DO Work Phone: [facility] 11-09-2022 08:38-0500 Diastolic blood pressure 98 mm[Hg] Jonn Wenceslao DO Work Phone: [facility] 11-09-2022 08:38-0500 Heart rate 64 /min Jonn Wenecslao DO Work Phone: [facility] 11-09-2022 08:38-0500 SaO2% (BldA) [Mass fraction] 95 % [place] Wenceslao DO Work Phone: [facility] 11-09-2022 08:38-0500 Systolic blood pressure 148 mm[Hg] [place] Wenceslao DO Work Phone: [facility] 07-01-2022 11:54-0400 Heart rate 77 /min Edna Colin BIOPSYCHOLOGIST.PHARMACIST ASSISTANT Work Phone: [facility] 07-01-2022 11:54-0400 Respiratory rate 14 /min Edna Dapmannie BIOPSYCHOLOGIST.PHARMACIST ASSISTANT Work Phone: [facility] 07-01-2022 11:54-0400 SaO2% (BldA) [Mass fraction] 95 % Edna Isabeloz BIOPSYCHOLOGIST.PHARMACIST ASSISTANT Work Phone: [facility] 05-10-2022 08:04-0400 Body height 157.5 cm Eder Pal MD Work Phone: [facility] 05-10-2022 08:04-0400 Body weight 77.11 kg Eder Pal MD Work Phone: [facility] 05-10-2022 08:04-0400 Respiratory rate 16 /min Eder Pal MD Work Phone: [facility] 04-11-2022 14:37-0400 Heart rate 63 /min Eder Pal MD Work Phone: [facility] 04-11-2022 14:37-0400 Respiratory rate 14 /min Edre Pal MD Work Phone: [facility] 04-11-2022 14:37-0400 SaO2% (BldA) [Mass fraction] 94 % Eder Pal MD Work Phone: [facility] 01-27-2022 16:27-0400 Body height 157.5 cm [place] Wenceslao DO Work Phone: [facility] 01-27-2022 16:27-0400 Body temperature 97.5 [degF] Jonn Wenceslao DO Work Phone: [facility] 01-27-2022 16:27-0400 Body weight 77.11 kg [place] Wenceslao DO Work Phone: [facility] 01-27-2022 16:27-0400 Diastolic blood pressure 70 mm[Hg] Jonn Wenceslao DO Work Phone: [facility] 01-27-2022 16:27-0400 Heart rate 67 /min Jonn Wenceslao DO Work Phone: [facility] 01-27-2022 16:27-0400 SaO2% (BldA) [Mass fraction] 95 % [place] Wenceslao DO Work Phone: [facility] 01-27-2022 16:27-0400 Systolic blood pressure 100 mm[Hg] Jonn Wenceslao DO Work Phone: [facility] 03-27-2020 16:09-0400 Body Temperature 99.39 [degF] [facility] [employer] [place] 03-27-2020 16:09-0400 BP Diastolic 84 mm[Hg] [facility] [employer] [place] 03-27-2020 16:09-0400 BP Systolic 160 mm[Hg] [facility] [place] 03-27-2020 16:09-0400 Pulse (Heart Rate) 74 /min [facility] [place] [facility]-27-2020 16:09-0400 Pulse Oximetry 93 % [facility] [place] 03-27-2020 16:09-0400 Respiratory Rate 18 /min [facility] [place] [place] 03-25-2020 23:51-0400 BMI (Body Mass Index) 32.7 kg/m2 [facility] [place] 03-25-2020 23:51-0400 Body weight 81.1 kg [facility] [place] 03-25-2020 19:36-0400 Height 157.5 cm [facility] [place] NEGATED: Highlighted [id number] 15:19-0400 BMI (Body Mass Index) 36.35 kg/m2 Domenica Barrett AT [facility] Work Phone: NEGATED: Highlighted [id number] 15:19-0400 Body weight 89.81 kg Domenica Dimos AT [facility] Work Phone: NEGATED: Highlighted [id number] 15:19-0400 Body weight 90 kg Domenica Dimos AT [facility] Work Phone: NEGATED: Highlighted [id number] 15:19-0400 BP Diastolic 81 mm[Hg] Domenica Dimos AT [facility] Work Phone: NEGATED: Highlighted [id number] 15:19-0400 BP Systolic 133 mm[Hg] Domenica Dimos AT [facility] Work Phone: NEGATED: Highlighted [id number] 15:19-0400 Height 157.48 cm Domenica Dimos AT [facility] Work Phone: NEGATED: Highlighted [id number] 15:19-0400 Height 157 cm Domenica Dimos AT [facility] Work Phone: NEGATED: Highlighted [id number] 15:19-0400 Pulse (Heart Rate) 62 /min Domenica Dimos AT [facility] Work Phone: Encounters Encounter Date Encounter Type Care Provider Facility Start: 03-10-2025 End: 03-10-2025 ambulatory Mita Rust [facility] Start: 03-10-2025 End: 03-10-2025 Patient encounter procedure Mita Rust [facility] Comment on above: Population Health Na vigation Outreach (Scheduling Diabetic Management with Primary Care/) Start: 02-18-2025 End: 02-18-2025 Patient encounter procedure Jonn Krishnamurthy DO Work Phone: [facility] Comment on above: Osteoarthritis, unsp ecified osteoarthritis type, unspecified site (Primary Dx); 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); Insulin-treated type 2 diabetes mellitus (HCC); Nausea and vomiting, unspecified vomiting type Start: 02-18-2025 End: 02-18-2025 ambulatory JONN KRISHNAMURTHY Facility:[facility] Start: 02-18-2025 End: 02-21-2025 Telephone encounter Jonn Krishnamurthy DO Work Phone: [facility] Comment on above: Handicap placard Start: 01-02-2025 End: 01-02-2025 Home visit Vivi Peoples PT Work Phone: [facility] Comment on above: PT AGENCY DC W VISIT Start: 12-31-2024 End: 12-31-2024 Home visit Lila FORDW Work Phone: [facility] Comment on above: IND[employer]RIAL GAS SERVICER CARE COORDINATIO N Start: 12-31-2024 End: 12-31-2024 Home visit Reta Gaona OT Work Phone: [facility] Comment on above: OT DISC DC W VISIT Start: 12-25-2024 End: 12-25-2024 Telephone encounter Radha Becker RN Work Phone: [facility] Comment on above: Home Care (Update, D ischarge from Nursing today) Start: 12-25-2024 End: 12-25-2024 Home visit Radha Becker RN Work Phone: [facility] Comment on above: SN DISC DC W VISIT Start: 12-24-2024 End: 12-24-2024 Home visit Alena Oviedo DIAZ/L Work Phone: [facility] Comment on above: DIAZ ROUTINE Start: 12-23-2024 End: 12-23-2024 Home visit Lorraine Garcia PT Work Phone: [facility] Comment on above: DRY CLEANING CHECKER ROUTINE JOINT VISIT Start: 12-18-2024 End: 12-18-2024 Home visit Lila London ANIMAL CHIROPRACTOR Work Phone: [facility] Comment on above: INDUSTRIAL GAS SERVICER CARE COORDINATIO N Start: 12-18-2024 End: 12-18-2024 Home visit Lila London ANIMAL CHIROPRACTOR Work Phone: [facility] Comment on above: INDUSTRIAL GAS SERVICER CARE COORDINATIO N Start: 12-17-2024 End: 12-17-2024 Home visit Caroline Lowe DRY CLEANING CHECKER Work Phone: [facility] Comment on above: DRY CLEANING CHECKER ROUTINE Start: 12-16-2024 End: 12-16-2024 Home visit Radha Becker RN Work Phone: [facility] Comment on above: SN ROUTINE Start: 12-13-2024 End: 12-13-2024 Telephone encounter Lila London ANIMAL CHIROPRACTOR Work Phone: [facility] Comment on above: Home Care Start: 12-13-2024 End: 12-13-2024 Home visit Radha Becker RN Work Phone: [facility] Comment on above: CARE COORDINATION INDUSTRIAL GAS SERVICER CARE COORDINATIO N Start: 12-10-2024 End: 12-10-2024 Home visit Reta Jimenez OT Work Phone: [facility] Comment on above: OT EVAL Start: 12-10-2024 End: 12-10-2024 Telephone encounter Lila London ANIMAL CHIROPRACTOR Work Phone: [facility] Comment on above: Home Detention Care (Update:) Start: 12-10-2024 End: 12-10-2024 Home visit Lila London ANIMAL CHIROPRACTOR Work Phone: [facility] Comment on above: INDUSTRIAL GAS SERVICER CARE COORDINATIO N SN ROUTINE PT EVAL Start: 12-09-2024 End: 12-09-2024 Home visit Lila London ANIMAL CHIROPRACTOR Work Phone: [facility] Comment on above: INDUSTRIAL GAS SERVICER CARE COORDINATIO N Start: 12-06-2024 End: 12-06-2024 Telephone encounter Maribeth Leal RN Work Phone: [facility] Comment on above: Home Care (Med issue s/ INDUSTRIAL GAS SERVICER referral) Start: 12-06-2024 End: 12-06-2024 Home visit Maribeth Leal RN Work Phone: [facility] Comment on above: SN SOC Start: 12-04-2024 End: 12-04-2024 Telephone encounter Kosta Chawdick LPN Work Phone: [facility] Comment on above: Home Care (Confirmat ion Call ) Start: 12-02-2024 End: 12-04-2024 Telephone encounter Kosta Chadwick LPN Work Phone: [facility] Comment on above: Home Care ( to odalys becerra) Start: 12-02-2024 ambulatory Mariano Deperro OLS Facili ty:[facility] Start: 11-26-2024 [facility] Start: 11-25-2024 ambulatory Mariano Deperro OLS Facili ty:[facility] Start: 11-20-2024 End: 11-22-2024 Telephone encounter Jonn Laura Krishnamurthy DO Work Phone: [facility] Comment on above: Patient Question (El iquis) Start: 11-12-2024 End: 12-05-2024 Telephone encounter Jonn Laura Krishnamurthy DO Work Phone: [facility] Comment on above: Patient Update (Sofía ent went into hospital 911 yesterday, very confused, vomiting and failing kidneys. Daughter wanted To know.//) Start: 11-11-2024 End: 11-19-2024 Evaluation and management of inpatient Marissa Angulo MD Work Phone: [facility] Card[facility] Progressive [facility] PCU 2E Comment on above: Confusion (Primary D x); Gastrointestinal hemorrhage, unspecified gastrointestinal hemorrhage type Start: 11-11-2024 End: 11-11-2024 ambulatory Miryam Lopez RN NURSE MICROBIOLOGY COORDINATOR Comment on above: Vomiting Start: 11-07-2024 End: 11-08-2024 Refill [place] Laura Wenceslao DO Work Phone: [facility] Comment on above: Refill Request Start: 10-13-2024 End: 10-14-2024 Refill [place] Laura Wenceslao DO Work Phone: [facility] Comment on above: Refill Request Start: 09-12-2024 End: 09-12-2024 Refill [place] Laura Wenceslao DO Work Phone: [facility] Comment on above: Refill Request Start: 09-09-2024 End: 09-09-2024 Telephone encounter Jonn Laura Wenceslao DO Work Phone: [facility] Start: 08-14-2024 End: 08-16-2024 Telephone encounter Jonn Laura Wenceslao DO Work Phone: [facility] Comment on above: Medication Problem Start: 08-13-2024 End: 08-13-2024 Refill [place] Laura Wenceslao DO Work Phone: [facility] Comment on above: Refill Request Start: 08-11-2024 End: 08-13-2024 ambulatory Jonn Laura Wenceslao DO Work Phone: [facility] Start: 08-11-2024 End: 08-13-2024 Patient encounter procedure Jonn Laura Wenceslao DO Work Phone: [facility] Comment on above: Pluma pain meds Start: 07-10-2024 End: 07-10-2024 Refill Jonn Laura Wenceslao DO Work Phone: [facility] Comment on above: Refill Request Start: 06-18-2024 End: 06-18-2024 Telephone encounter John Doan MD Work Phone: [facility] Comment on above: No Show Start: 06-14-2024 End: 06-14-2024 Telephone encounter Jonn Matosrio DO Work Phone: [facility] Start: 06-13-2024 End: 06-13-2024 Telephone encounter Jonn Matosrio DO Work Phone: [facility] Start: 06-11-2024 End: 06-11-2024 Patient encounter procedure Jonn Matosrio DO Work Phone: [facility] Comment on above: Essential (primary) hypertension (Primary Dx); Nausea and vomiting, unspecified vomiting type; Urinary frequency; 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); Spinal stenosis of cervical region; Spinal stenosis of lumbar region without neurogenic claudication; Overweight with body mass index (BMI) of 29 to 29.9 in adult Start: 06-11-2024 End: 06-11-2024 ambulatory JONN LAURA WENCESLAO Facility:[facility] Start: 05-31-2024 End: 06-03-2024 Telephone encounter Jonn Matosrio DO Work Phone: [facility] Comment on above: Results Start: 05-29-2024 End: 05-29-2024 Patient encounter procedure John Doan MD Work Phone: [facility] Comment on above: Spinal stenosis of c ervical region (Primary Dx) Start: 05-29-2024 End: 05-29-2024 ambulatory JOHN DOAN Facility:[facility] Start: 05-29-2024 ambulatory JONN ARYAR D WENCESLAO Facility:[facility] Start: 05-29-2024 End: 05-29-2024 Subsequent hospital visit by physician [facility] LEGAL NURSE CONSULTANT Comment on above: Lumbar spondylosis [ M47.816] Start: 05-23-2024 End: 05-23-2024 Patient encounter procedure Jonn Krishnamurthy DO Work Phone: [facility] Comment on above: Essential (primary) hypertension (Primary Dx); Insulin-treated type 2 diabetes mellitus (HCC); Gastro-esophageal reflux disease without esophagitis; Hyperlipidemia, mixed; 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); Other depression; Chronic pain syndrome; Spinal stenosis of lumbar region without neurogenic claudication; Decreased appetite; Bilateral hip pain; Chronic midline low back pain without sciatica; Overweight with body mass index (BMI) of 29 to 29.9 in adult Start: 05-23-2024 End: 05-23-2024 ambulatory JONN LAURA WENCESLAO Facility:[facility] Start: 05-10-2024 ambulatory JOHN Dianei ty:[facility] Start: 05-10-2024 End: 05-10-2024 Subsequent hospital visit by physician [facility] Comment on above: Lumbar spondylosis [ M47.816] Start: 05-08-2024 End: 05-08-2024 Telephone encounter John Doan MD Work Phone: [facility] Comment on above: Appointment Start: 04-19-2024 Telephone encounter [facility] Work Phone: [facility] Start: 04-19-2024 End: 04-19-2024 Patient encounter procedure Jonn Laura Krishnamurthy DO Work Phone: [facility] Comment on above: Primary hypertension (Primary Dx); Insulin-treated type 2 diabetes mellitus (HCC); Primary osteoarthritis of both hips; Recurrent falls; Spinal stenosis of lumbar region without neurogenic claudication; Lumbar spondylosis; 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); Overweight with body mass index (BMI) of 29 to 29.9 in adult Start: 04-19-2024 End: 04-19-2024 ambulatory JONN KRISHNAMURTHY Facility:[facility] Start: 02-22-2024 End: 02-22-2024 Emergency department patient visit Jihan Krishnamurthy Facility:[facility] Start: 02-22-2024 Telephone encounter Jonn Krishnamurthy DO Work Phone: [facility] Comment on above: Patient Question Start: 02-03-2024 Refill Jonn Krishnamurthy DO Work Phone: [facility] Comment on above: Refill Request Start: 11-24-2023 Telephone encounter Jonn Krishnamurthy DO Work Phone: [facility] Comment on above: Consult (Consult to orthopaedics, chronic pain of right ankle confirm [id number]) Start: 11-24-2023 End: 11-24-2023 Patient encounter procedure Jonn Krishnamurthy DO Work Phone: [facility] Comment on above: Insulin-treated type 2 diabetes mellitus (HCC) (Primary Dx); Nausea and vomiting, unspecified vomiting type; Primary hypertension; Diabetic gastroparesis (HCC) (HCC); Chronic insomnia; Class 1 obesity with body mass index (BMI) of 32.0 to 32.9 in adult, unspecified obesity type, unspecified whether serious comorbidity present; Chronic pain of right ankle; Arthritis of both hips; Primary osteoarthritis of both hips; Lumbar spondylosis; Primary osteoarthritis of right knee Start: 07-17-2023 Telephone encounter Jonn Krishnamurthy DO Work Phone: [facility] Start: 07-05-2023 End: 07-05-2023 Patient encounter procedure Jonn Krishnamurthy DO Work Phone: [facility] Comment on above: Acute UTI (Primary D x); Urinary frequency; Insulin-treated type 2 diabetes mellitus (HCC); Hyperlipidemia, mixed; Other hemorrhoids; Rectal bleeding; Primary osteoarthritis of both hips; Lumbar spondylosis; Screening for thyroid disorder; Obesity, Class I, BMI 30-34.9; Primary osteoarthritis of right knee Start: 07-04-2023 Telephone encounter Jonn Krishnamurthy DO Work Phone: [facility] Start: 07-03-2023 ambulatory Johanny COPPOLA MICROBIOLOGY COORDINATOR Comment on above: Difficulty Urinating ; Urinary Urgency Start: 03-27-2023 Telephone encounter Jonn Krishnamurthy DO Work Phone: [facility] Comment on above: Appointment Start: 01-11-2023 Telephone encounter Jonn Krishnamurthy DO Work Phone: [facility] Comment on above: Referral Request; Ap pointment Start: 12-23-2022 Refill [place] Gerar d Wenceslao DO Work Phone: [facility] Comment on above: Med Change Request Start: 12-08-2022 Refill [place] Gerar d Wenceslao DO Work Phone: [facility] Comment on above: Refill Request Start: 11-18-2022 Telephone encounter Edna chand APRN.PHARMACIST ASSISTANT Work Phone: [facility] Comment on above: No Show (Missed # 2 ) Start: 11-18-2022 End: 11-18-2022 Unlisted evaluation and management service Edna Shaw APRN.PHARMACIST ASSISTANT Work Phone: [facility] Comment on above: NO SHOW (Primary Dx) Start: 11-17-2022 Refill Jonn Gerar d Wenceslao DO Work Phone: [facility] Comment on above: Refill Request Start: 11-12-2022 Refill [place] Gerar d Wenceslao DO Work Phone: [facility] Comment on above: Refill Request Start: 11-09-2022 End: 11-09-2022 Patient encounter procedure Jonn Krishnamurthy DO Work Phone: [facility] Comment on above: Primary hypertension (Primary Dx); Hyperlipidemia, mixed; Lumbar spondylolysis; Primary osteoarthritis of both hips; Lumbar spondylosis; Primary osteoarthritis of right knee Start: 10-21-2022 Telephone encounter Edna chand APRN.PHARMACIST ASSISTANT Work Phone: [facility] Comment on above: Medication Problem Start: 10-21-2022 End: 10-21-2022 Patient encounter procedure Edna Shaw APRN.PHARMACIST ASSISTANT Work Phone: [facility] Comment on above: Lumbar spondylosis ( Primary Dx); Primary osteoarthritis of both hips; Encounter for long-term (current) use of medications Start: 10-20-2022 Refill Jonn Krishnamurthy DO Work Phone: [facility] Comment on above: Refill Request Start: 10-19-2022 Telephone encounter Edna chand BIOPSYCHOLOGIST.PHARMACIST ASSISTANT Work Phone: [facility] Comment on above: Medication Problem Start: 10-18-2022 Telephone encounter Edna chand APRN.PHARMACIST ASSISTANT Work Phone: [facility] Comment on above: Orders Start: 10-06-2022 Refill Jonn Krishnamurthy DO Work Phone: [facility] Comment on above: Refill Request Start: 09-05-2022 Refill Jonn Krishnamurthy DO Work Phone: [facility] Comment on above: Refill Request (need s appointment) Start: 07-01-2022 End: 07-01-2022 Patient encounter procedure Edna Shaw APRN.PHARMACIST ASSISTANT Work Phone: [facility] Comment on above: Primary osteoarthrit is of both hips (Primary Dx); Lumbar spondylosis; Primary osteoarthritis of right knee; Myofascial pain; Encounter for long-term (current) use of medications; Spinal stenosis, lumbar region with neurogenic claudication; Spinal stenosis of lumbar region with neurogenic claudication Start: 06-28-2022 Telephone encounter Eder neri MD Work Phone: [facility] Comment on above: Patient Question Start: 06-06-2022 Refill Jonn Jovan chepe Wenceslao DO Work Phone: [facility] Comment on above: Refill Request Start: 05-12-2022 Telephone encounter Eder neri MD Work Phone: [facility] Comment on above: Appointment Start: 05-10-2022 End: 05-10-2022 Patient encounter procedure Eder Pal MD Work Phone: [facility] Comment on above: Primary osteoarthrit is of right knee (Primary Dx); Primary osteoarthritis of both hips; Lumbar spondylosis; Spinal stenosis, lumbar region with neurogenic claudication; Spinal stenosis of lumbar region with neurogenic claudication Start: 04-23-2022 Refill [place] Aldana chepe MatosWenceslao DO Work Phone: [facility] Comment on above: Refill Request Start: 04-18-2022 Telephone encounter Eder neri MD Work Phone: [facility] Comment on above: Missed Appointment Start: 04-17-2022 Refill [place] Gerdayana chepe Wenceslao DO Work Phone: [facility] Comment on above: Refill Request Start: 04-12-2022 Telephone encounter Eder neri MD Work Phone: [facility] Comment on above: Appointment; Medicat ion Problem Medication Problem Start: 04-11-2022 End: 04-11-2022 Patient encounter procedure Eder Pal MD Work Phone: [facility] Comment on above: Primary osteoarthrit is of both hips (Primary Dx); Lumbar spondylosis; Spinal stenosis, lumbar region with neurogenic claudication; Spinal stenosis of lumbar region with neurogenic claudication; Myofascial pain Start: 02-07-2022 Telephone encounter Jonn Krishnamurthy DO Work Phone: [facility] Comment on above: Consult (Consult to Pain Management ) Start: 02-01-2022 Telephone encounter Jonn Krishnamurthy DO Work Phone: [facility] Comment on above: Refill Request Start: 01-27-2022 End: 01-27-2022 Patient encounter procedure Jonn Krishnamurthy DO Work Phone: [facility] Comment on above: Primary hypertension (Primary Dx); Insulin-treated type 2 diabetes mellitus (HCC); Gastro-esophageal reflux disease without esophagitis; Generalized arthritis; Hyperlipidemia, mixed; Recurrent UTI (urinary tract infection); Screening for thyroid disorder Start: 01-11-2022 Telephone encounter Jonn Krishnamurthy DO Work Phone: [facility] Comment on above: Medication Question Start: 11-02-2021 Refill Jonn Krishnamurthy DO Work Phone: [facility] Comment on above: Refill Request; Refi ll Request Start: 10-08-2021 Telephone encounter Jonn Krishnamurthy DO Work Phone: [facility] Comment on above: Refill Request Start: 08-04-2021 Refill Jonn Krishnamurthy DO Work Phone: [facility] Comment on above: Refill Request; Refi ll Request Start: 07-17-2020 End: 07-17-2020 Telephone encounter Jonn Krishnamurthy Work Phone: [facility] Comment on above: Orders (order for ur inalysis and culture) Start: 03-25-2020 End: 03-27-2020 Evaluation and management of inpatient Lam Acevedo Work Phone: [facility] Comment on above: Pneumonia due to org anism (Primary Dx); Febrile illness; Altered mental status, unspecified altered mental status type Start: 03-18-2019 End: 03-18-2019 Patient encounter procedure Sandeep Ross MD Work Phone: [facility] Work Phone: Start: 03-18-2019 End: 03-18-2019 Pt evaluation Sandeep Ross MD Work Phone: [facility] Work Phone: Procedures Date Procedure Procedure Detail Performing Clinician Start: 02-18-2025 Hemoglobin A1c/Hemoglobin.total in Blood [facility] DO Work Phone: Start: 11-19-2024 Glucose quantitative blood xcpt reagent strip Wang Ibarra MD Work Phone: Start: 11-19-2024 Glucose quantitative blood xcpt reagent strip Joana Haywood MD Work Phone: Start: 11-19-2024 End: 11-19-2024 Comprehensive metabolic panel Joana Haywood MD Work Phone: Start: 11-18-2024 Glucose quantitative blood xcpt reagent strip Joana Haywood MD Work Phone: Start: 11-18-2024 Glucose quantitative blood xcpt reagent strip Joana Haywood MD Work Phone: Start: 11-18-2024 H/O: hysterectomy Status post hysterectomy [place] Wenceslao DO Work Phone: Start: 11-18-2024 Glucose quantitative blood xcpt reagent strip Joana Haywood MD Work Phone: Start: 11-18-2024 HOME O2 EVAL (DESATURATION SCREEN) Joana Haywood MD Work Phone: Start: 11-18-2024 Glucose quantitative blood xcpt reagent strip Joana Haywood MD Work Phone: Start: 11-18-2024 End: 11-18-2024 Comprehensive metabolic panel Joana Haywood MD Work Phone: Start: 11-17-2024 Glucose quantitative blood xcpt reagent strip Joana Haywood MD Work Phone: Start: 11-17-2024 Glucose quantitative blood xcpt reagent strip Joana Haywood MD Work Phone: Start: 11-17-2024 Glucose quantitative blood xcpt reagent strip Joana Haywood MD Work Phone: Start: 11-17-2024 Glucose quantitative blood xcpt reagent strip Joana Haywood MD Work Phone: Start: 11-17-2024 Comprehensive metabo lic panel Joana Haywood MD Work Phone: Start: 11-16-2024 Glucose quantitative blood xcpt reagent strip Joana Haywood MD Work Phone: Start: 11-16-2024 Glucose quantitative blood xcpt reagent strip Joana Haywood MD Work Phone: Start: 11-16-2024 Glucose quantitative blood xcpt reagent strip Joana Haywood MD Work Phone: Start: 11-16-2024 Glucose quantitative blood xcpt reagent strip Joana Haywood MD Work Phone: Start: 11-16-2024 Comprehensive metabo lic panel Joana Haywood MD Work Phone: Start: 11-15-2024 Iadna-dna/rna gi pth gn multiplex probe tq 12- Danette Guidry MD Work Phone: Start: 11-15-2024 Inf agent det nuclei c acid clostridium amp probe Danette Guidry MD Work Phone: Start: 11-15-2024 Glucose quantitative blood xcpt reagent strip Joana Haywood MD Work Phone: Start: 11-15-2024 Glucose quantitative blood xcpt reagent strip Joana Haywood MD Work Phone: Start: 11-15-2024 Radiologic exam ches t 2 views Joana Haywood MD Work Phone: Start: 11-15-2024 Iaadiadoo not otherw ise specified Joana Haywood MD Work Phone: Start: 11-15-2024 Respiratory pathogen s DNA and RNA panel - Nasopharynx by CRISTOFER with non-probe detection Joana Haywood MD Work Phone: Start: 11-15-2024 Glucose quantitative blood xcpt reagent strip Joana Haywood MD Work Phone: Start: 11-15-2024 Comprehensive metabo lic panel Joana Haywood MD Work Phone: Start: 11-14-2024 Glucose quantitative blood xcpt reagent strip Joana Haywood MD Work Phone: Start: 11-14-2024 Glucose quantitative blood xcpt reagent strip Joana Haywood MD Work Phone: Start: 11-14-2024 Blood occult peroxid ase actv qual feces 1-3 spec Joana Haywood MD Work Phone: Start: 11-14-2024 Glucose quantitative blood xcpt reagent strip Joana Haywood MD Work Phone: Start: 11-14-2024 Glucose quantitative blood xcpt reagent strip Joana Haywood MD Work Phone: Start: 11-14-2024 Comprehensive metabo lic panel Joana Haywood MD Work Phone: Start: 11-13-2024 Glucose quantitative blood xcpt reagent strip Joana Haywood MD Work Phone: Start: 11-13-2024 Glucose quantitative blood xcpt reagent strip Joana Haywood MD Work Phone: Start: 11-13-2024 End: 11-13-2024 Glucose quantitative blood xcpt reagent strip Joana Haywood MD Work Phone: Start: 11-13-2024 Glucose quantitative blood xcpt reagent strip Joana Haywood MD Work Phone: Start: 11-13-2024 Glucose quantitative blood xcpt reagent strip Joana Haywood MD Work Phone: Start: 11-13-2024 End: 11-13-2024 Comprehensive metabolic panel Joana Haywood MD Work Phone: Start: 11-12-2024 Glucose quantitative blood xcpt reagent strip Joana Haywood MD Work Phone: Start: 11-12-2024 Glucose quantitative blood xcpt reagent strip Joana Haywood MD Work Phone: Start: 11-12-2024 Glucose quantitative blood xcpt reagent strip Joana Haywood MD Work Phone: Start: 11-12-2024 End: 11-12-2024 Basic metabolic panel calcium total Julio Adams MD Work Phone: Start: 11-12-2024 Glucose quantitative blood xcpt reagent strip Julio Adams MD Work Phone: Start: 11-12-2024 Ct head/brain w/o contrast material Julio Adams MD Work Phone: Start: 11-11-2024 Assay of iron Julio Adams MD Work Phone: Start: 11-11-2024 Urinalysis complete panel - Urine Marissa Angulo MD Work Phone: Start: 11-11-2024 Urnls dip stick/tabl et reagent auto microscopy Marissa Angulo MD Work Phone: Start: 11-11-2024 Ecg routine ecg w/le ast 12 lds trcg only w/o i&r Marissa Angulo MD Work Phone: Start: 11-11-2024 Antibody screen FREELAN Chepe KRISHNAMURTHY Comment on above: Performed By: #### L [id number] ####Floor Assembler: KELLEY DURAND ([id number])[facility] ([facility])[address] Start: 11-11-2024 Antibody screen rbc each serum technique Marissa Angulo MD Work Phone: Start: 11-11-2024 Comprehensive metabo lic panel Marissa Angulo MD Work Phone: Start: 06-11-2024 Culture bacterial quanttative colony count urine Jonnnicolle Krishnamurthy DO Work Phone: Start: 06-11-2024 Urnls dip stick/tabl et rgnt auto w/o microscopy [place] Laura Krishnamurthy DO Work Phone: Start: 11-24-2023 Hemoglobin A1c/Hemoglobin.total in Blood [place] Laura Krishnamurthy DO Work Phone: Start: 07-05-2023 Urnls dip stick/tabl et rgnt auto w/o microscopy [place] Laura Krishnamurthy DO Work Phone: Start: 01-27-2022 Hemoglobin A1c/Hemoglobin.total in Blood [place] Laura Krishnamurthy DO Work Phone: Start: 03-31-2020 Microscopic examinat ion of blood, culture Comment on above: Order Comment: Speci men Source Comment:Blood Performed By: #### H EMDF, LACT3, LIPA4, CMP3, BNP3, TROPN, CRP2 #### [facility] [address] [place] [address] Start: 03-27-2020 Gluc bld gluc mntr d ev cleared fda spec home use Danette Guidry Work Phone: Start: 03-27-2020 Ct angiography chest w/contrast/noncontrast Murtaza Buckley Work Phone: Start: 03-27-2020 Gluc bld gluc mntr d ev cleared fda spec home use Danette Guidry Work Phone: Start: 03-27-2020 Gluc bld gluc mntr d ev cleared fda spec home use Danette Guidry Work Phone: Start: 03-27-2020 BASIC METABOLIC PANE L W/ REFLEX TO MG FOR LOW K Danette Guidry Work Phone: Start: 03-27-2020 Blood count complete automated Danette Guidry Work Phone: Start: 03-27-2020 Gluc bld gluc mntr d ev cleared fda spec home use Danette Guidry Work Phone: Start: 03-26-2020 Gluc bld gluc mntr d ev cleared fda spec home use Danette Guidry Work Phone: Start: 03-26-2020 Gluc bld gluc mntr d ev cleared fda spec home use Lam Acevedo Work Phone: Start: 03-26-2020 Gluc bld gluc mntr d ev cleared fda spec home use Danette Guidry Work Phone: Start: 03-26-2020 Gluc bld gluc mntr d ev cleared fda spec home use Danette Guidry Work Phone: Start: 03-26-2020 Gluc bld gluc mntr d ev cleared fda spec home use Danette Guidry Work Phone: Start: 03-25-2020 Radiologic exam ches t single view Danette Mahajan Work Phone: Start: 03-25-2020 Culture bacterial quanttative colony count urine Danette Connollyner Work Phone: Start: 03-25-2020 Assay of lactate Danette Connollyner Work Phone: Start: 03-25-2020 Assay of lipase Danette Connollyner Work Phone: Start: 03-25-2020 Assay of troponin quantitative Danette Connollyner Work Phone: Start: 03-25-2020 Blood count complete auto&auto difrntl wbc Danette Keyshawn Work Phone: Start: 03-25-2020 C-reactive protein Ivan christopher Keyshawn Work Phone: Start: 03-25-2020 Comprehensive metabo lic panel Danette Mahajan Work Phone: Start: 03-25-2020 COVID-19 Danette spears Work Phone: Start: 03-25-2020 Culture bacterial bl ood aerobic w/id isolates Danette Mahajan Work Phone: Start: 03-25-2020 CULTURE, BLOOD 1 Danette Mahajan Work Phone: Start: 03-25-2020 Iadna respiratry pro be & rev trnscr 12-25 target Danette Mahajan Work Phone: Start: 03-25-2020 Natriuretic peptide Nilo iel Keyshawn Work Phone: Start: 03-25-2020 Urnls dip stick/tabl et rgnt auto w/o microscopy Danette Mahajan Work Phone: Start: 03-25-2020 Ecg routine ecg w/le ast 12 lds w/i&r Danette Mahajan Work Phone: Start: 03-18-2019 End: 03-18-2019 Blood pressure within normal parameters - no follow-up required Sandeep Ross MD Work Phone: Start: 03-18-2019 End: 03-18-2019 BMI documented as above normal parameters - follow-up documented Sandeep Ross MD Work Phone: Start: 03-18-2019 End: 03-18-2019 Doc fx & test/txmnt for op Sandeep Ross MD Work Phone: Start: 03-18-2019 End: 03-18-2019 Documentation of current medications Sandeep Ross MD Work Phone: Start: 03-18-2019 End: 03-18-2019 Fall plan of care docchepe Neir Work Phone: Start: 03-18-2019 End: 03-18-2019 Fall risk assessment docchepe oRss MD Work Phone: Start: 03-18-2019 End: 03-18-2019 Pain assessment documented as positive - follow-up documented Sandeep Ross MD Work Phone: Start: 03-18-2019 End: 03-18-2019 Ptfalls assess-docd ge2>/yr Sandeep Ross MD Work Phone: Start: 03-18-2019 End: 03-18-2019 Radex hip unilateral with pelvis 2-3 views Sandeep Ross MD Work Phone: Start: 03-18-2019 End: 03-18-2019 Tobacco non-user Sandeep Ross MD Work Phone: NEGATED: Highlighted rowStart: 03-18-2019 End: 03-18-2019 Documentation of current medications Domenica Barrett AT Plan of Treatment Date Care Activity Detail Author Start: 11-19-2025 Diabetes: Estimated Glomerular Filtration Rate for [facility] Diabetes: Estimated Glomerular Filtration Rate for [facility] Start: 05-21-2025 Hemoglobin A1c measurement HbA1C [facility] Start: 05-05-2025 Influenza vaccination [facility] Start: 02-18-2025 End: 05-20-2025 Lipid 1996 panel - Serum or Plasma LIPID PANEL, FASTING Lab Routine 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) Expected: 02/18/2025, Expires: 05/20/2025 [facility] Work Phone: Comment on above: Expected: 02/18/2025 , Expires: 05/20/2025 Start: 02-18-2025 End: 05-20-2025 Microalbumin/Creatinine [Mass Ratio] in Urine ALBUMIN/CREATININE RATIO, URINE Lab Routine 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) Expected: 02/18/2025, Expires: 05/20/2025 [facility] Comment on above: Expected: 02/18/2025 , Expires: 05/20/2025 Start: 01-06-2025 End: 01-06-2025 Patient encounter procedure 01/06/2025 2:30 PM EDT Office Visit [facility] [address] [place] [address] Jonn Krishnamurthy DO [address] [place] [id number] Hospital Follow up, patient is having alot of pain in neck and back [facility] [place] Comment on above: Hospital Follow up, patient is having alot of pain in neck and back Start: 09-04-2024 Advance Directive Discussion Advance Directive Discussion [facility] Start: 09-04-2024 Medicare Advantage Annual Wellness Visit Medicare Advantage Annual Wellness Visit [facility] Start: 07-17-2024 Hepatitis B surface antibody level LDL Cholesterol [facility] Start: 06-14-2024 End: 06-14-2024 Patient encounter procedure 06/14/2024 10:00 AM EDT Office Visit [facility] [address] [place] [id number] John Doan MD [address] [place] [address] MRI done yesterday. MRI review [facility] Comment on above: MRI done yesterday. MRI review Start: 06-13-2024 End: 06-13-2024 Patient encounter procedure [facility] [place] [employer] Comment on above: MRI CERVICAL SPINE W O IVCON MRI CERVICAL WO Start: 05-29-2024 End: 05-29-2024 Patient encounter procedure [facility] [employer] Comment on above: MRI LUMBAR lumbar spondylosis; Pt has dementia daughter Estefany speaks for her; MRI ordered getting this wk unsure of exact time will call back to confirm MRI appt Start: 05-10-2024 End: 05-10-2024 Patient encounter procedure 05/10/2024 9:30 AM EDT Office Visit [facility] [address] [place] [phone] John Doan MD [address] [place] [phone] lumbar spondylosis; Pt has dementia daughter Estefany speaks for her; MRI ordered getting this wk unsure of exact time will call back to confirm MRI appt [facility] Comment on above: lumbar spondylosis; Pt has dementia daughter Estefany speaks for her; MRI ordered getting this wk unsure of exact time will call back to confirm MRI appt Start: 05-05-2024 Covid-19 Vaccine () Covid-19 Vaccine () [facility] Start: 05-05-2024 Covid-19 Vaccine () Covid-19 Vaccine () [facility] Start: 05-05-2024 Influenza vaccination C [facility] Start: 02-24-2024 Hemoglobin A1c measurement HbA1C [facility] Start: 02-16-2024 End: 02-16-2024 Patient encounter procedure 02/16/2024 2:45 PM EDT [place] [address] [address] [id number] [place] [address] legs and feet, hard to walk [facility] Comment on above: legs and feet, hard to walk Start: 09-04-2023 Advance Directive Discussion Advance Directive Discussion [facility] Start: 07-05-2023 End: 07-05-2024 CBC W Auto Differential panel - Blood CBC + DIFF Lab Routine Hyperlipidemia, mixed Expected: 07/05/2023, Expires: 07/05/2024 [facility] Work Phone: Comment on above: Expected: 07/05/2023 , Expires: 07/05/2024 Start: 07-05-2023 End: 07-05-2024 Comprehensive metabolic 2000 panel - Serum or Plasma COMP METABOLIC PANEL Lab Routine Hyperlipidemia, mixed Expected: 07/05/2023, Expires: 07/05/2024 [facility] Work Phone: Comment on above: Expected: 07/05/2023 , Expires: 07/05/2024 Start: 07-05-2023 End: 10-04-2023 Hemoglobin A1c in Blood HGB A1C Lab Routine Insulin-treated type 2 diabetes mellitus (HCC) Expected: 07/05/2023, Expires: 10/04/2023 [facility] Work Phone: Comment on above: Expected: 07/05/2023 , Expires: 10/04/2023 Start: 07-05-2023 End: 07-05-2024 Lipid 1996 panel - Serum or Plasma LIPID PANEL BASIC Lab Routine Hyperlipidemia, mixed Expected: 07/05/2023, Expires: 07/05/2024 [facility] Work Phone: Comment on above: Expected: 07/05/2023 , Expires: 07/05/2024 Start: 07-05-2023 End: 07-05-2024 Thyrotropin [Units/volume] in Serum or Plasma TSH BLD Lab Routine Screening for thyroid disorder Expected: 07/05/2023, Expires: 07/05/2024 [facility] Work Phone: Comment on above: Expected: 07/05/2023 , Expires: 07/05/2024 Start: 07-05-2023 End: 10-04-2023 Urinalysis complete panel - Urine URINALYSIS, WITH MICROSCOPIC Lab Routine Hyperlipidemia, mixed Expected: 07/05/2023, Expires: 10/04/2023 [facility] Work Phone: Comment on above: Expected: 07/05/2023 , Expires: 10/04/2023 Start: 05-05-2023 Covid-19 Vaccine () Covid-19 Vaccine () [facility] Start: 05-05-2023 Influenza vaccination C [facility] Start: 09-04-2022 ADVANCE DIRECTIVE DISCUSSION ADVANCE DIRECTIVE DISCUSSION [facility] Start: 05-05-2022 [facility] Start: 04-29-2022 Hemoglobin A1c/Hemoglobin.total in Blood HBA1C [facility] Start: 01-27-2022 End: 03-29-2022 CBC W Auto Differential panel - Blood CBC + DIFF Lab Routine Hyperlipidemia, mixed Expected: 01/27/2022, Expires: 03/29/2022 [facility] Work Phone: Comment on above: Expected: 01/27/2022 , Expires: 03/29/2022 Start: 01-27-2022 End: 03-29-2022 Comprehensive metabolic 2000 panel - Serum or Plasma COMP METABOLIC PANEL Lab Routine Hyperlipidemia, mixed Expected: 01/27/2022, Expires: 03/29/2022 [facility] Work Phone: Comment on above: Expected: 01/27/2022 , Expires: 03/29/2022 Start: 01-27-2022 End: 03-29-2022 LIPID PANEL BASIC LIPID PANEL BASIC Lab Routine Hyperlipidemia, mixed Expected: 01/27/2022, Expires: 03/29/2022 [facility] Work Phone: Comment on above: Expected: 01/27/2022 , Expires: 03/29/2022 Start: 01-27-2022 End: 03-29-2022 Thyrotropin [Units/volume] in Serum or Plasma TSH BLD Lab Routine Screening for thyroid disorder Expected: 01/27/2022, Expires: 03/29/2022 [facility] Work Phone: Comment on above: Expected: 01/27/2022 , Expires: 03/29/2022 Start: 01-27-2022 End: 03-29-2022 Urinalysis complete panel - Urine URINALYSIS, WITH MICROSCOPIC Lab Routine Hyperlipidemia, mixed Expected: 01/27/2022, Expires: 03/29/2022 [facility] Work Phone: Comment on above: Expected: 01/27/2022 , Expires: 03/29/2022 Start: 09-04-2021 ADVANCE DIRECTIVE DISCUSSION ADVANCE DIRECTIVE DISCUSSION [facility] Start: 03-27-2021 Creatinine measurement Creatinine mo nitoring [facility] [place] Start: 03-27-2021 Potassium monitoring Potassium monit oring [facility] [place] Start: 05-05-2020 Influenza vaccination Flu vaccine (# 1) [place], [place] Start: 03-18-2020 End: 03-18-2019 Radex hip unilateral with pelvis 2-3 views XR HIP 2-3 VWS-RT [facility] Work Phone: Start: 04-16-2019 End: 04-16-2019 Appointment Appointment [facility] Work Phone: Start: 03-18-2019 End: 03-18-2019 Appointment Appointment [facility] Work Phone: Start: 02-19-2019 Annual Wellness Visi t (AWV) Annual Wellness Visit (AWV) [place], [place] Start: 02-28-2015 RSV Immunization for Adults (1 - 1-dose 75+ series) RSV Immunization for Adults (1 - 1-dose 75+ series) [facility] Start: 02-28-2015 RSV Vaccine (1 - 1-d ose 75+ series) RSV Vaccine (1 - 1-dose 75+ series) [facility] Start: 02-28-2005 BONE DENSITY BONE DENSITY [facility] Start: 02-28-2005 Bone Density Screening Bone Density Screening [facility] Start: 02-28-2005 Pneumococcal 65+ yea rs Vaccine (1 of 1 - PPSV23) Pneumococcal 65+ years Vaccine (1 of 1 - PPSV23) [place], [place] Start: 02-28-2005 PNEUMOVAX AGE 65 AND OVER WITH 5YR LOOKBACK (#1) PNEUMOVAX AGE 65 AND OVER WITH 5YR LOOKBACK (#1) [facility] Start: 02-28-2005 Screening for osteoporosis Bone Density Screening [facility] Start: 2000 Hepatitis B Vaccine (1 of 3 - Risk 3-dose series) Hepatitis B Vaccine (1 of 3 - Risk 3-dose series) [facility] Start: 2000 RSV Vaccine (1 - 1-d ose 60+ series) RSV Vaccine (1 - 1-dose 60+ series) [facility] Start: 02-28-1995 Screening for osteoporosis DEXA (modify frequency per FRAX score) [place] Start: 02-28-1990 Shingles Vaccine (1 of 2) Shingles Vaccine (1 of 2) [place] Start: 02-28-1990 SHINGRIX VACCINE (1 of 2) SHINGRIX VACCINE (1 of 2) [facility] Start: 02-28-1990 Zoster Vaccines (1 o f 2) Zoster Vaccines (1 of 2) [facility] Start: 02-28-1959 DTaP/Tdap/Td vaccine (1 - Tdap) DTaP/Tdap/Td vaccine (1 - Tdap) [place] Start: 02-28-1959 DTaP/Tdap/Td Vaccine s (1 - Tdap) DTaP/Tdap/Td Vaccines (1 - Tdap) [facility] Start: 02-28-1959 Pneumococcal Vaccine : 50+ (1 of 2 - PCV) Pneumococcal Vaccine: 50+ (1 of 2 - PCV) [facility] Start: 02-28-1959 Pneumococcal Vaccine : 50+ Years (1 of 2 - PCV) Pneumococcal Vaccine: 50+ Years (1 of 2 - PCV) [facility] Start: 02-28-1959 Urine microalbumin profile [facility] Start: 02-28-1958 Diabetes: Urine Albumin-Creatinine Ratio for [facility] Diabetes: Urine Albumin-Creatinine Ratio for [facility] Start: 02-28-1958 Hepatitis B surface antibody level LDL CHOLESTEROL [facility] Start: 1952 Depression Monitoring Depression Mon [facility] Start: 02-28-1950 3 comp foot exam completed DIABETIC FOOT EXAM [facility] Start: 02-28-1950 Diabetic foot examination Diabetic Foot Exam [facility] Start: 02-28-1950 Glaucoma screening Dilated Retinal E xam [facility] Start: 02-28-1950 Hepatitis B screening URINE AL BUMIN:CREATININE RATIO [facility] Start: 02-28-1950 Hepatitis C antibody , confirmatory test DILATED RETINAL EXAM [facility] Start: 02-28-1946 Pneumococcal Vaccine : 65+ (1 - PCV) Pneumococcal Vaccine: 65+ (1 - PCV) [facility] Start: 02-28-1946 Pneumococcal Vaccine : 65+ (1 of 2 - PCV) Pneumococcal Vaccine: 65+ (1 of 2 - PCV) [facility] Start: 02-28-1946 PNEUMOCOCCAL: 65+ (1 - PCV) PNEUMOCOCCAL: 65+ (1 - PCV) [facility] Start: 02-28-1945 COVID-19 VACCINE (#1) COVID-19 VACCI NE (#1) [facility] Start: 02-28-1945 COVID-19 VACCINE (1) COVID-19 VACCIN E (1) [facility] Start: 02-28-1945 Hemoglobin A1c/Hemoglobin.total in Blood HBA1C [facility] Start: 1940 COVID-19 VACCINE (#1) COVID-19 VACCI NE (#1) [facility] Start: 1940 Medicare Annual Wellness (AWV) Medicare Annual Wellness (AWV) [facility] Start: 1940 Screening for osteoporosis Bone Density Scan [facility] Start: 1940 Thyroid stimulating hormone measurement TSH Level [facility] End: 07-17-2021 Bacteria identified Cx Nom (U) URINE CULTURE Microbiology Routine Recurrent UTI (urinary tract infection) 1 Occurrences starting 07/17/2020 until 07/17/2021 [facility] Comment on above: 1 Occurrences starti ng 07/17/2020 until 07/17/2021 End: 05-11-2023 Ct lumbar spine w/o contrast material CT LUMBAR SPINE WO IVCON Radiology Routine Spinal stenosis of lumbar region with neurogenic claudication 1 Occurrences starting 04/11/2022 until 05/11/2023 [facility] Work Phone: Comment on above: 1 Occurrences starti ng 04/11/2022 until 05/11/2023 Culture, Blood 1 Culture, Blood 1 Microbiology STAT 03/25/2020 8:41 PM EDT [facility] [place] Culture, Blood 2 Culture, Blood 2 Microbiology STAT 03/25/2020 8:41 PM EDT [facility] [place] End: 03-26-2020 Culture, Respiratory Culture, Respiratory Microbiology Routine One Time for 1 Occurrences starting 03/26/2020 until 03/26/2020 [facility] [place] Comment on above: One Time for 1 Occur rences starting 03/26/2020 until 03/26/2020 Hemoglobin A1c/Hemoglobin.total in Blood HEMOGLOBIN A1C (POC) Lab Routine Insulin-treated type 2 diabetes mellitus (HCC) Ordered: 01/27/2022 [facility] Work Phone: Comment on above: Ordered: 01/27/2022 Hemoglobin A1c/Hemoglobin.total in Blood HEMOGLOBIN A1C (POC) Lab Routine Insulin-treated type 2 diabetes mellitus (HCC) Ordered: 11/24/2023 [facility] Work Phone: Comment on above: Ordered: 11/24/2023 End: 11-11-2024 Hemoglobin.gastrointest inal.lower [Presence] in Stool by Immunoassay --1st specimen Occult blood, stool Microbiology Routine Once (Lab) for 1 Occurrences starting 11/11/2024 until 11/11/2024 [facility] Work Phone: Comment on above: Once (Lab) for 1 Occ urrences starting 11/11/2024 until 11/11/2024 End: 03-27-2020 Home O2 eval (desaturation screen) Home O2 eval (desaturation screen) Respiratory Care Routine One Time for 1 Occurrences starting 03/27/2020 until 03/27/2020 [facility] Comment on above: One Time for 1 Occur rences starting 03/27/2020 until 03/27/2020 End: 11-15-2024 Legionella and Streptococcus Urine Antigen [facility] Work Phone: Comment on above: Once (Lab) for 1 Occ urrences starting 11/15/2024 until 11/15/2024 End: 03-26-2020 LEGIONELLA ANTIGEN, URINE LEGIONELLA ANTIGEN, URINE Microbiology Routine One Time for 1 Occurrences starting 03/26/2020 until 03/26/2020 [facility] Comment on above: One Time for 1 Occur rences starting 03/26/2020 until 03/26/2020 End: 03-26-2020 Microscopic observation Gram stain Nom (Unsp spec) Gram Stain Microbiology Routine Once for 1 Occurrences starting 03/26/2020 until 03/26/2020 [facility] Comment on above: Once for 1 Occurrenc es starting 03/26/2020 until 03/26/2020 End: 06-28-2025 MR Cervical spine WO contrast MRI CERVICAL SPINE WO IVCON Radiology Routine Spinal stenosis of cervical region 1 Occurrences starting 05/29/2024 until 06/28/2025 [facility] Work Phone: Comment on above: 1 Occurrences starti ng 05/29/2024 until 06/28/2025 End: 05-19-2025 MR Lumbar spine WO contrast MRI LUMBAR SPINE WO IVCON Radiology Routine Lumbar spondylosis Spinal stenosis of lumbar region without neurogenic claudication 1 Occurrences starting 04/19/2024 until 05/19/2025 [facility] Work Phone: Comment on above: 1 Occurrences starti ng 04/19/2024 until 05/19/2025 MR Lumbar spine WO contrast MRI LUMBAR SPINE WO IVCON Radiology Routine Lumbar spondylosis Spinal stenosis of lumbar region without neurogenic claudication 05/29/2024 11:58 AM EDT [facility] Work Phone: Oxygen therapy Initiate Oxygen Therapy Protocol Respiratory Care Routine Daily until discontinued starting 03/26/2020 [facility] [employer] Comment on above: Daily until disconti nued starting 03/26/2020 Patient Education \cps-sql1\CPS_ PtEducatio n\[facility]_FALL_PREVENTION.pd f [facility] Work Phone: POCT glucose [employer] [facility], [place] Comment on above: 4X Daily (AC & HS) u ntil discontinued starting 03/26/2020 As Needed until disc ontinued starting 03/26/2020 End: 05-11-2023 Radex spine lumbosacral minimum 4 views XR LUMBAR MOTION 4V AP/LAT/ FLEX/EXT Radiology Routine Lumbar spondylosis 1 Occurrences starting 04/11/2022 until 05/11/2023 [facility] Work Phone: Comment on above: 1 Occurrences starti ng 04/11/2022 until 05/11/2023 End: 03-26-2020 STREP PNEUMONIAE ANTIGEN STREP PNEUMONIAE ANTIGEN Microbiology Routine One Time for 1 Occurrences starting 03/26/2020 until 03/26/2020 [facility] [employer] Comment on above: One Time for 1 Occur rences starting 03/26/2020 until 03/26/2020 TOX SCREEN ROUT UR TOX SCREEN RO UT UR Lab Routine Encounter for long-term (current) use of medications Ordered: 07/01/2022 [facility] Work Phone: Comment on above: Ordered: 07/01/2022 UA DIP, URINE (POC) UA DIP, URIN E (POC) Lab Routine Urinary frequency Ordered: 07/05/2023 [facility] Work Phone: Comment on above: Ordered: 07/05/2023 UA DIP, URINE (POC) UA DIP, URIN E (POC) Lab Routine Urinary frequency Ordered: 06/11/2024 [facility] Work Phone: Comment on above: Ordered: 06/11/2024 End: 07-17-2021 Urinalysis complete panel - Urine URINALYSIS, WITH MICROSCOPIC Lab Routine Recurrent UTI (urinary tract infection) 1 Occurrences starting 07/17/2020 until 07/17/2021 [facility] Comment on above: 1 Occurrences starti ng 07/17/2020 until 07/17/2021 End: 11-15-2024 Urine Hold Cup Urine Hold Cup Lab Routine Once for 1 Occurrences starting 11/15/2024 until 11/15/2024 [facility] [employer] Comment on above: Once for 1 Occurrenc es starting 11/15/2024 until 11/15/2024 End: 05-10-2024 XR CERV OTHER 4V AP/LAT/FLX/EXT [facility] Comment on above: 1 Occurrences starti ng 05/10/2024 until 05/10/2024 End: 05-11-2023 XR HIP GENERAL 3V PELV/AP/LAT LEFT XR HIP GENERAL 3V PELV/AP/LAT LEFT Radiology Routine Primary osteoarthritis of both hips 1 Occurrences starting 04/11/2022 until 05/11/2023 [facility] Work Phone: Comment on above: 1 Occurrences starti ng 04/11/2022 until 05/11/2023 End: 05-11-2023 XR HIP GENERAL 3V PELV/AP/LAT RIGHT XR HIP GENERAL 3V PELV/AP/LAT RIGHT Radiology Routine Primary osteoarthritis of both hips 1 Occurrences starting 04/11/2022 until 05/11/2023 [facility] Work Phone: Comment on above: 1 Occurrences starti ng 04/11/2022 until 05/11/2023 End: 06-09-2023 XR KNEE 3V FLEX/LAT/MERCH RIGHT (AK) XR KNEE 3V FLEX/LAT/MERCH RIGHT (AK) Radiology Routine Primary osteoarthritis of right knee 1 Occurrences starting 05/10/2022 until 06/09/2023 [facility] Work Phone: Comment on above: 1 Occurrences starti ng 05/10/2022 until 06/09/2023 End: 05-10-2024 XR Thoracic and lumbar spine Views for scoliosis W standing [facility] Work Phone: Comment on above: 1 Occurrences starti ng 05/10/2024 until 05/10/2024 [facility] Immunizations Immunization Date Immunization Notes Care Provider Emiliano yen 05-05-2017 influenza (HD-IIV4) vaccine, age 65+ yr, high dose, quadrivalent, PF (FLUZONE HIGH-DOSE) [place] Wenceslao NEVES Work Phone: [facility] 05-05-2017 influenza virus vacc ine, unspecified formulation Marissa Angulo MD Work Phone: [facility] Payers Date Payer Category Payer Medicare (Managed Care) [employer] H[employer] [id number] 2024 Medicare [id number] 2024 Self-pay 2015 Private Health Insurance [employer] MEDICARE SUPP [id number] 2015-Present [phone] [address] [place] [address] [id number] 1998 Medicare [id number] 1998 Medicare [id number] 1998 Medicare [id number] Unknown [id number] Unknown [id number] Unknown [id number] Unknown [id number] Social History Date Type Detail Facility Start: 03-27-2020 End: 09-23-2022 Tobacco smoking status NHIS Never smoker [facility] Start: 03-27-2020 End: 09-23-2022 Tobacco use and exposure Never used [place], [place] Start: 03-27-2020 End: 11-19-2024 Alcohol intake Current non-drinker of alcohol (finding) [place], [place] Start: 1940 Sex Assigned At Not on file M [place], [place] Start: 09-22-2021 End: 07-01-2022 Exposure to SARS-CoV-2 (event) Not sure [place] Start: 04-29-2021 End: 05-29-2024 Alcohol intake Lifetime non-drinker (finding) [facility] Start: 12-08-2020 History SDOH Alcohol Frequency 1 [facility] Start: 05-15-2022 End: 05-25-2022 Exposure to SARS-CoV-2 (event) Unable to assess [facility] Start: 01-13-2023 End: 11-24-2023 History of Social function [facility] Start: 01-13-2023 End: 11-24-2023 Tobacco use panel [facility] Adult Depression Screening Assessment 0 [facility] How often to you hav e a drink containing alcohol? Never [facility] Has the electric, gas, oil, or water company threatened to shut off services in your home in past 12Mo No [facility] Start: 04-04-2022 Sex Female (finding) [facility] Start: 11-12-2024 Gender identity Identifies as female gender (finding) [facility] Start: 11-12-2024 Sexual orientation Heterosexual (fin ding) [facility] NEGATED: Highlighted rowStart: 03-18-2019 End: 03-18-2019 Alcohol use Alcohol use [facility] Work Phone: NEGATED: Highlighted rowStart: 03-18-2019 End: 03-18-2019 Details of drug misuse behavior Details of drug misuse behavior [facility] Work Phone: NEGATED: Highlighted rowStart: 03-18-2019 End: 03-18-2019 Assertion Never smoker [facility] Work Phone: Medical Equipment Procedure Code Equipment Code Equipment Origin al Text Equipment Identifier Dates [id number] Comment on above: four times daily. four times daily. [id number] Comment on above: four times daily. Clinical Notes 08-04-2021 to 03-10-2025 Mita Rust - 03/10/2025 1:26 PM EDTTelephone Encounter - Jonn Krishnamurthy, DO - 02/20/2025 9:18 AM EDTTelephone Encounter - Jonn Krishnamurthy, DO - 02/20/2025 9:18 AM EDT Note Date & Type Note Facility 03-10-2025 Note HNO ID: [id number] Author: MITA RUST, ? Service: ? Author Type: ? Type: Progress Notes Filed: 03/10/2025 13:29 Note Text: [facility] POPULATION HEALTH NAVIGATION OUTREACH Action/FYI Patient needs to schedule DM Appt with PCP Patient Identified by Name and : Yes, via phone and via [employer] Reason for Outreach Care Gap or Scheduling Wellness Visits Care Gap Reviewed:: Annual Wellness visit Controlling Blood Pressure Diabetic Eye Exam HBA1C/GMI KED (UACR/eGFR) Outreach Outcome/Action Unable to reach patient: Left message MyChart message sent Population Health Navigation Workflow Chart Review Payer: [facility] Navigation Signature: Mita Rust March 10, 2025 1:[address] [facility] 03-10-2025 History of Present illness Narrative [facility] POP[facility] HEALTH NAVIGATION OUTREACH Action/FYI Patient needs to schedule DM Appt with PCP Patient Identified by Name and : Yes, via phone and via MyChart Reason for Outreach Care Gap or Scheduling Wellness Visits Care Gap Reviewed:: Annual Wellness visit Controlling Blood Pressure Diabetic Eye Exam HBA1C/GMI KED (UACR/eGFR) Outreach Outcome/Action Unable to reach patient: Left message MyChart message sent Population Health Navigation Workflow Chart Review Payer: [facility] Navigation Signature: Mita Rust March 10, 2025 1:26 PM documented in this encounter [facility] 03-10-2025 Note Patient Outreach (FP DOYL) MARGARITA BETANCOURT ([id number]) 1940 F Date Time Provider Department 03/10/25 MITA RUST During your visit today, we recorded the following information about you: Mita Rust 03/10/2025 1:29 PM Signed [facility] NAVIGATION OUTREACH Action/FYI Patient needs to schedule DM Appt with PCP Patient Identified by Name and : Yes, via phone and via MyChart Reason for Outreach Care Gap or Scheduling Wellness Visits Care Gap Reviewed:: Annual Wellness visit Controlling Blood Pressure Diabetic Eye Exam HBA1C/GMI KED (UACR/eGFR) Outreach Outcome/Action Unable to reach patient: Left message MyChart message sent Population Health Navigation Workflow Chart Review Payer: [facility] Navigation Signature: Mita Rust March 10, 2025 1:26 PM Allergies As of Date: 03/10/2025 Noted Allergy Reaction MEPERIDINE 07/01/2016 16 - Unknown 11 - Vomiting 14 - Other: See Comments MORPHINE 02/22/2024 14 - Other: See Comments Date Reviewed: 02/18/2025 Reviewed by: Jaz Dawkins LPN - Fully Assessed Reason for Visit: Population Health Navigation Outreach [3910] Cmt: Scheduling Diabetic Management with Primary Care Prescriptions as of 03/10/2025 - ondansetron orally disintegrating (ZOFRAN ODT) 4 mg disintegrating tablet Take 1 tablet by mouth every 8 hours as needed for nausea/vomiting. - oxyCODONE-acetaminophen (PERCOCET) 5-325 mg tablet Take 1 tablet by mouth every 6 hours as needed for pain for up to 20 doses. - insulin lispro (HUMALOG KWIKPEN INSULIN) 100 unit/mL Inject 18 Units subcutaneously three times a day before meals. INJECT 18 UNITS SUBCUTANEOUSLY THREE TIMES DAILY BEFORE MEALS. - omeprazole (PRILOSEC) 40 mg capsule Take 1 capsule by mouth two times a day. - Magnesium 250 mg tab Take 250 mg by mouth once daily. - phenazopyridine HCl (AZO ORAL) Take 99.5 mg by mouth once daily as needed (bladder pain). - lisinopril (ZESTRIL) 20 mg tablet Take 0.5 tablets by mouth once daily. - DICLOFENAC SODIUM TOPICAL Apply 1 application to affected area two times a day. - MULTIVITAMIN ORAL Take 1 tablet by mouth once daily. - ubidecarenone Q-10 (CO Q-10) 10 mg cap Take 10 mg by mouth once daily. - mirtazapine (REMERON) 45 mg tablet Take 1 tablet by mouth daily at bedtime. - metoprolol succinate ER (TOPROL XL) 50 mg 24 hr tablet Take 1 tablet by mouth once daily. - insulin glargine (LANTUS SOLOSTAR U-100 INSULIN) 100 unit/mL (3 mL) Inject 18 Units subcutaneously daily at bedtime. - gabapentin (NEURONTIN) 300 mg capsule Take 1 capsule by mouth two times a day. - ELIQUIS 5 mg tab(s) Take 1 tablet by mouth every afternoon. - phenazopyridine HCl (AZO ORAL) Take by mouth. Gummies OTC - POTASSIUM-99 ORAL Take 1 tablet by mouth every 48 hours. - ipratropium-albuterol (DUONEB) 0.5 mg-3 mg(2.5 mg base)/3 mL nebu USE 1 VIAL IN NEBULIZER 4 TIMES DAILY - MEDICATION, NON-DATABASE Co q 10 b complex Calcium AND vit d - MV with Uqf-Uiejuyoh-Mzgszv (CENTRUM SILVER) 0.4-300-250 mg-mcg-mcg tab Centrum Silver Tablet Centrum Silver Tablet Active 1 TAB DAILY December 23, 2015 3:40pm 12-23-2015 [facility] ([id number]) - PRODIGY LANCETS MISC four times daily. - blood sugar diagnostic (PRODIGY NO CODING) test strip four times daily. Meds Comments as of 12/06/2024: 12/06/24 SOC no severe med interactions med list in complete, med list not in home, in-basket sent to PCP for assistance Problem List As Of Date 03/10/2025 Noted Resolved Insulin-treated type 2 diabetes mellitus (HCC) * Hyperlipidemia, mixed [E78.2] Screening for thyroid disorder [Z13.29] 12/14/2020 Generalized arthritis [M19.90] 12/14/2020 Recurrent UTI (urinary tract infection) [N39.0] 04/29/2021 Late onset Alzheimer's dementia with behavioral*04/29/2021 Essential (primary) hypertension [I10] 02/02/2022 Gastro-esophageal reflux disease without esopha*02/02/2022 Chronic insomnia [F51.04] 01/23/2023 Primary osteoarthritis of both hips [M16.0] 01/23/2023 Primary osteoarthritis of right knee [M17.11] 01/23/2023 Obesity, Class I, BMI 30-34.9 [E66.811] 01/23/2023 Lumbar spondylosis [M47.816] 07/11/2023 Spinal stenosis of lumbar region without neurog*04/21/2024 Recurrent falls [R29.6] 04/21/2024 Spinal stenosis of cervical region [M48.02] 05/29/2024 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 [facility] 02-20-2025 Telephone encounter Note Done [facility] 02-20-2025 Miscellaneous Notes Done Patient daughter in law requesting Handicap placard for patient when they left appointment today. Pended documented in this encounter [facility] 02-18-2025 Telephone encounter Note Patient daughter in law requesting Handicap placard for patient when they left appointment today. Pended [facility] 02-18-2025 Note HNO ID: [id number] Author: JONN KRISHNAMURTHY DO Service: ? Author Type: Physician Type: Progress Notes Filed: 02/26/2025 22:16 Note Text: Medina Betancourt is an 84-year-old female with a history of atrial fibrillation, dementia, and diabetes, accompanied by her daughter who is providing history on her behalf, presenting for follow-up after a recent hospitalization. Recent Hospitalization: - Recent hospitalization for hematemesis with coffee ground emesis. - Diagnosed with a small tear in the lower intestine and an unspecified infection. - Currently experiencing increased swelling in the ankle, making it difficult to wear shoes. Atrial Fibrillation: - Currently taking Eliquis 5 mg BID. - Family expresses concern about fall risk due to medication. Dementia: - Reports memory issues, stating, I can't remember from one day to the next what day it is. - Enjoys watching TV and playing a hunting game on the [employer]. Diabetes: - Recent A1c was 8.7%. Review of Systems Musculoskeletal: (+) hip pain, (+) back pain, (+) ankle swelling, (+) decreased mobility Neurological: (+) memory loss, (+) falls 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 2 diabetes mellitus Dyspnea Edema of upper extremity Fatigue Female stress incontinence Generalized anxiety disorder GERD (gastroesophageal reflux disease) Hip joint painful on movement Insomnia Insulin-treated type 2 diabetes mellitus (HCC) Mixed hyperlipidemia Muscle weakness (generalized) Obesity (BMI 30-39.9) Poor short term memory Premature beats Superficial thrombophlebitis Type 2 diabetes mellitus without complication (HCC) Urinary tract infectious disease PAST SURGICAL HISTORY Procedure Laterality Date BLADDER SURGERY HX LIGATE FALLOPIAN TUBE REPAIR EPIGASTRIC HERNIA,REDUC REVISE MEDIAN N/CARPAL TUNNEL SURG TOTAL ABDOM HYSTERECTOMY 09/04/1983 FAMILY HISTORY Problem Relation Age of Onset Colon Cancer Brother other (myocardial infarction) Brother Social History Tobacco Use Smoking status: Never Smokeless tobacco: Never Vaping Use Vaping status: Never Used Substance Use Topics Alcohol use: Never Drug use: Never Current Outpatient Medications Medication Sig insulin lispro (HUMALOG KWIKPEN INSULIN) 100 unit/mL Inject 18 Units subcutaneously three times a day before meals. INJECT 18 UNITS SUBCUTANEOUSLY THREE TIMES DAILY BEFORE MEALS. omeprazole (PRILOSEC) 40 mg capsule Take 1 capsule by mouth two times a day. Magnesium 250 mg tab Take 250 mg by mouth once daily. lisinopril (ZESTRIL) 20 mg tablet Take 0.5 tablets by mouth once daily. DICLOFENAC SODIUM TOPICAL Apply 1 application to affected area two times a day. MULTIVITAMIN ORAL Take 1 tablet by mouth once daily. ubidecarenone Q-10 (CO Q-10) 10 mg cap Take 10 mg by mouth once daily. mirtazapine (REMERON) 45 mg tablet Take 1 tablet by mouth daily at bedtime. ondansetron orally disintegrating (ZOFRAN ODT) 4 mg disintegrating tablet Take 1 tablet by mouth every 8 hours as needed for nausea/vomiting. metoprolol succinate ER (TOPROL XL) 50 mg 24 hr tablet Take 1 tablet by mouth once daily. insulin glargine (LANTUS SOLOSTAR U-100 INSULIN) 100 unit/mL (3 mL) Inject 18 Units subcutaneously daily at bedtime. gabapentin (NEURONTIN) 300 mg capsule Take 1 capsule by mouth two times a day. ELIQUIS 5 mg tab(s) Take 1 tablet by mouth every afternoon. phenazopyridine HCl (AZO ORAL) Take by mouth. Gummies OTC POTASSIUM-99 ORAL Take 1 tablet by mouth every 48 hours. ipratropium-albuterol (DUONEB) 0.5 mg-3 mg(2.5 mg base)/3 mL nebu USE 1 VIAL IN NEBULIZER 4 TIMES DAILY MEDICATION, NON-DATABASE Co q 10 b complex Calcium AND vit d PRODIGY LANCETS MISC four times daily. phenazopyridine HCl (AZO ORAL) Take 99.5 mg by mouth once daily as needed (bladder pain). MV with Sed-Julievga-Lokstt (CENTRUM SILVER) 0.4-300-250 mg-mcg-mcg tab Centrum Silver Tablet Centrum Silver Tablet Active 1 TAB DAILY December 23, 2015 3:40pm 12-23-2015 [facility] ([id number]) blood sugar diagnostic (PRODIGY NO CODING) test strip four times daily. No current facility-administered medications for this visit. Objective BP 130/80 (BP Site: Left Arm, BP Position: Sitting) Pulse 85 Temp 37.4 ?C (99.3 ?F) Ht 5' 2 (1.575 m) Wt 164 lb (74.4 kg) LMP (LMP Unknown) SpO2 94% BMI 30.00 kg/m? Physical Exam GENERAL: NAD, alert and oriented SKIN: unremarkable, no rash or skin lesions. HEAD: normocephalic EYES: PERRLA, EOMI, conjunctiva clear EARS: external ears normal, canals clear, TM's normal. NOSE/SINUSES: Nares normal. Septum midline. OROPHARYNX: lips, mucosa, and tongue normal, good dentition. No oral lesions noted. NECK: Supple, no lymphadenopathy, normal thyroid, no caroti (more content not included)... [facility] 02-18-2025 History of Present illness Narrative Subjective Margarita Betancourt is an 84-year-old female with a history of atrial fibrillation, dementia, and diabetes, accompanied by her daughter who is providing history on her behalf, presenting for follow-up after a recent hospitalization. Recent Hospitalization: - Recent hospitalization for hematemesis with coffee ground emesis. - Diagnosed with a small tear in the lower intestine and an unspecified infection. - Currently experiencing increased swelling in the ankle, making it difficult to wear shoes. Atrial Fibrillation: - Currently taking Eliquis 5 mg BID. - Family expresses concern about fall risk due to medication. Dementia: - Reports memory issues, stating, I can't remember from one day to the next what day it is. - Enjoys watching TV and playing a hunting game on the [employer]. Diabetes: - Recent A1c was 8.7%. Review of Systems Musculoskeletal: (+) hip pain, (+) back pain, (+) ankle swelling, (+) decreased mobility Neurological: (+) memory loss, (+) falls 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 2 diabetes mellitus Dyspnea Edema of upper extremity Fatigue Female stress incontinence Generalized anxiety disorder GERD (gastroesophageal reflux disease) Hip joint painful on movement Insomnia Insulin-treated type 2 diabetes mellitus (HCC) Mixed hyperlipidemia Muscle weakness (generalized) Obesity (BMI 30-39.9) Poor short term memory Premature beats Superficial thrombophlebitis Type 2 diabetes mellitus without complication (HCC) Urinary tract infectious disease PAST SURGICAL HISTORY Procedure Laterality Date BLADDER SURGERY HX LIGATE FALLOPIAN TUBE REPAIR EPIGASTRIC HERNIA,REDUC REVISE MEDIAN N/CARPAL TUNNEL SURG TOTAL ABDOM HYSTERECTOMY 09/04/1983 FAMILY HISTORY Problem Relation Age of Onset Colon Cancer Brother other (myocardial infarction) Brother Social History Tobacco Use Smoking status: Never Smokeless tobacco: Never Vaping Use Vaping status: Never Used Substance Use Topics Alcohol use: Never Drug use: Never Current Outpatient Medications Medication Sig insulin lispro (HUMALOG KWIKPEN INSULIN) 100 unit/mL Inject 18 Units subcutaneously three times a day before meals. INJECT 18 UNITS SUBCUTANEOUSLY THREE TIMES DAILY BEFORE MEALS. omeprazole (PRILOSEC) 40 mg capsule Take 1 capsule by mouth two times a day. Magnesium 250 mg tab Take 250 mg by mouth once daily. lisinopril (ZESTRIL) 20 mg tablet Take 0.5 tablets by mouth once daily. DICLOFENAC SODIUM TOPICAL Apply 1 application to affected area two times a day. MULTIVITAMIN ORAL Take 1 tablet by mouth once daily. ubidecarenone Q-10 (CO Q-10) 10 mg cap Take 10 mg by mouth once daily. mirtazapine (REMERON) 45 mg tablet Take 1 tablet by mouth daily at bedtime. ondansetron orally disintegrating (ZOFRAN ODT) 4 mg disintegrating tablet Take 1 tablet by mouth every 8 hours as needed for nausea/vomiting. metoprolol succinate ER (TOPROL XL) 50 mg 24 hr tablet Take 1 tablet by mouth once daily. insulin glargine (LANTUS SOLOSTAR U-100 INSULIN) 100 unit/mL (3 mL) Inject 18 Units subcutaneously daily at bedtime. gabapentin (NEURONTIN) 300 mg capsule Take 1 capsule by mouth two times a day. ELIQUIS 5 mg tab(s) Take 1 tablet by mouth every afternoon. phenazopyridine HCl (AZO ORAL) Take by mouth. Gummies OTC POTASSIUM-99 ORAL Take 1 tablet by mouth every 48 hours. ipratropium-albuterol (DUONEB) 0.5 mg-3 mg(2.5 mg base)/3 mL nebu USE 1 VIAL IN NEBULIZER 4 TIMES DAILY MEDICATION, NON-DATABASE Co q 10 b complex Calcium & vit d PRODIGY LANCETS MISC four times daily. phenazopyridine HCl (AZO ORAL) Take 99.5 mg by mouth once daily as needed (bladder pain). MV with Ach-Xqyklryb-Bgjwlz (CENTRUM SILVER) 0.4-300-250 mg-mcg-mcg tab Centrum Silver Tablet Centrum Silver Tablet Active 1 TAB DAILY December 23, 2015 3:40pm 12-23-2015 [facility] ([id number]) blood sugar diagnostic (PRODIGY NO CODING) test strip four times daily. No current facility-administered medications for this visit. Objective BP 130/80 (BP Site: Left Arm, BP Position: Sitting) Pulse 85 Temp 37.4 C (99.3 F) Ht 5' 2 (1.575 m) Wt 164 lb (74.4 kg) LMP (LMP Unknown) SpO2 94% BMI 30.00 kg/m Physical Exam GENERAL: NAD, alert and oriented SKIN: unremarkable, no rash or skin lesions. HEAD: normocephalic EYES: PERRLA, EOMI, conjunctiva clear EARS: external ears normal, canals clear, TM's normal. NOSE/SINUSES: Nares normal. Septum midline. OROPHARYNX: lips, mucosa, and tongue normal, good dentition. No oral lesions noted. NECK: Supple, no lymphadenopathy, normal thyroid, no carotid bruits. LUNGS: Clear to auscultation bilaterally, no wheezes/rhonchi/rales. HEART: Regular rate and rhythm, no murmurs. No ectopy. EXTREMITIES: Normal, No deformities, No skin discoloration, No edema. NEURO: Awake, alert and oriented x3, cranial nerves II-XII grossly intact, normal gait, no involuntary motions Labs: - A1C: 8.7 (elevated) Assessment & Plan 1. 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 Insulin-treated type 2 diabetes mellitus (HCC) (E11.9) - Hemoglobin A1c is 8.7%. - Continue current insulin regimen. 3. Nausea and vomiting, unspecified vomiting type (R11.2) Jonn Krishnamurthy DO Return in about 6 months (around 08/20/2025). Recording using [employer] software for draft documentation of the visit was discussed with the patient/authorized sales representative gas service; all questions welcomed and answered. Patient/authorized sales representative gas service agreed to proceed Subjective Margarita Betancourt is an 84-year-old female with a history of atrial fibrillation, dementia, and diabetes, accompanied by her daughter who is providing history on her behalf, presenting for follow-up after a recent hospitalization. Recent Hospitalization: - Recent hospitalization for hematemesis with coffee ground emesis. - Diagnosed with a small tear in the lower intestine and an unspecified infection. - Currently experiencing increased swelling in the ankle, making it difficult to wear shoes. Atrial Fibrillation: - Currently taking Eliquis 5 mg BID. - Family expresses concern about fall risk due to medication. Dementia: - Reports memory issues, stating, I can't remember from one day to the next what day it is. - Enjoys watching TV and playing a hunting game on the [employer]. Diabetes: - Recent A1c was 8.7%. Review of Systems Musculoskeletal: (+) hip pain, (+) back pain, (+) ankle swelling, (+) decreased mobility Neurological: (+) memory loss, (+) falls 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 2 diabetes mellitus Dyspnea Edema of upper extremity Fatigue Female stress incontinence Generalized anxiety disorder GERD (gastroesophageal reflux disease) Hip joint painful on movement Insomnia Insulin-treated type 2 diabetes mellitus (HCC) Mixed hyperlipidemia Muscle weakness (generalized) Obesity (BMI 30-39.9) Poor short term memory Premature beats Superficial thrombophlebitis Type 2 diabetes mellitus without complication (HCC) Urinary tract infectious disease PAST SURGICAL HISTORY Procedure Laterality Date BLADDER SURGERY HX LIGATE FALLOPIAN TUBE REPAIR EPIGASTRIC HERNIA,REDUC REVISE MEDIAN N/CARPAL TUNNEL SURG TOTAL ABDOM HYSTERECTOMY 09/04/1983 FAMILY HISTORY Problem Relation Age of Onset Colon Cancer Brother other (myocardial infarction) Brother Social History Tobacco Use Smoking status: Never Smokeless tobacco: Never Vaping Use Vaping status: Never Used Substance Use Topics Alcohol use: Never Drug use: Never Current Outpatient Medications Medication Sig insulin lispro (HUMALOG KWIKPEN INSULIN) 100 unit/mL Inject 18 Units subcutaneously three times a day before meals. INJECT 18 UNITS SUBCUTANEOUSLY THREE TIMES DAILY BEFORE MEALS. omeprazole (PRILOSEC) 40 mg capsule Take 1 capsule by mouth two times a day. Magnesium 250 mg tab Take 250 mg by mouth once daily. lisinopril (ZESTRIL) 20 mg tablet Take 0.5 tablets by mouth once daily. DICLOFENAC SODIUM TOPICAL Apply 1 application to affected area two times a day. MULTIVITAMIN ORAL Take 1 tablet by mouth once daily. ubidecarenone Q-10 (CO Q-10) 10 mg cap Take 10 mg by mouth once daily. mirtazapine (REMERON) 45 mg tablet Take 1 tablet by mouth daily at bedtime. ondansetron orally disintegrating (ZOFRAN ODT) 4 mg disintegrating tablet Take 1 tablet by mouth every 8 hours as needed for nausea/vomiting. metoprolol succinate ER (TOPROL XL) 50 mg 24 hr tablet Take 1 tablet by mouth once daily. insulin glargine (LANTUS SOLOSTAR U-100 INSULIN) 100 unit/mL (3 mL) Inject 18 Units subcutaneously daily at bedtime. gabapentin (NEURONTIN) 300 mg capsule Take 1 capsule by mouth two times a day. ELIQUIS 5 mg tab(s) Take 1 tablet by mouth every afternoon. phenazopyridine HCl (AZO ORAL) Take by mouth. Gummies OTC POTASSIUM-99 ORAL Take 1 tablet by mouth every 48 hours. ipratropium-albuterol (DUONEB) 0.5 mg-3 mg(2.5 mg base)/3 mL nebu USE 1 VIAL IN NEBULIZER 4 TIMES DAILY MEDICATION, NON-DATABASE Co q 10 b complex Calcium & vit d PRODIGY LANCETS MISC four times daily. phenazopyridine HCl (AZO ORAL) Take 99.5 mg by mouth once daily as needed (bladder pain). MV with Fpr-Qdrjhzyz-Dlvesy (CENTRUM SILVER) 0.4-300-250 mg-mcg-mcg tab Centrum Silver Tablet Centrum Silver Tablet Active 1 TAB DAILY December 23, 2015 3:40pm 12-23-2015 [facility] ([id number]) blood sugar diagnostic (PRODIGY NO CODING) test strip four times daily. No current facility-administered medications for this visit. Objective BP 130/80 (BP Site: Left Arm, BP Position: Sitting) Pulse 85 Temp 37.4 C (99.3 F) Ht 5' 2 (1.575 m) Wt 164 lb (74.4 kg) LMP (LMP Unknown) SpO2 94% BMI 30.00 kg/m Physical Exam GENERAL: NAD, alert and oriented SKIN: unremarkable, no rash or skin lesions. HEAD: normocephalic EYES: PERRLA, EOMI, conjunctiva clear EARS: external ears normal, canals clear, TM's normal. NOSE/SINUSES: Nares normal. Septum midline. OROPHARYNX: lips, mucosa, and tongue normal, good dentition. No oral lesions noted. NECK: Supple, no lymphadenopathy, normal thyroid, no carotid bruits. LUNGS: Clear to auscultation bilaterally, no wheezes/rhonchi/rales. HEART: Regular rate and rhythm, no murmurs. No ectopy. EXTREMITIES: Normal, No deformities, No skin discoloration, No edema. NEURO: Awake, alert and oriented x3, cranial nerves II-XII grossly intact, normal gait, no involuntary motions Labs: - A1C: 8.7 (elevated) Assessment & Plan 1. 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 Insulin-treated type 2 diabetes mellitus (HCC) (E11.9) - Hemoglobin A1c is 8.7%. - Continue current insulin regimen. 3. Nausea and vomiting, unspecified vomiting type (R11.2) Jonn Krishnamurthy DO Return in about 6 months (around 08/20/2025). Recording using [employer] software for draft documentation of the visit was discussed with the patient/authorized sales representative gas service; all questions welcomed and answered. Patient/authorized sales representative gas service agreed to proceed Subjective Review of Systems 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 2 diabetes mellitus Dyspnea Edema of upper extremity Fatigue Female stress incontinence Generalized anxiety disorder GERD (gastroesophageal reflux disease) Hip joint painful on movement Insomnia Insulin-treated type 2 diabetes mellitus (HCC) Mixed hyperlipidemia Muscle weakness (generalized) Obesity (BMI 30-39.9) Poor short term memory Premature beats Superficial thrombophlebitis Type 2 diabetes mellitus without complication (HCC) Urinary tract infectious disease PAST SURGICAL HISTORY Procedure Laterality Date BLADDER SURGERY HX LIGATE FALLOPIAN TUBE REPAIR EPIGASTRIC HERNIA,REDUC REVISE MEDIAN N/CARPAL TUNNEL SURG TOTAL ABDOM HYSTERECTOMY 09/04/1983 FAMILY HISTORY Problem Relation Age of Onset Colon Cancer Brother other (myocardial infarction) Brother Social History Tobacco Use Smoking status: Never Smokeless tobacco: Never Vaping Use Vaping status: Never Used Substance Use Topics Alcohol use: Never Drug use: Never Current Outpatient Medications Medication Sig insulin lispro (HUMALOG KWIKPEN INSULIN) 100 unit/mL Inject 18 Units subcutaneously three times a day before meals. INJECT 18 UNITS SUBCUTANEOUSLY THREE TIMES DAILY BEFORE MEALS. omeprazole (PRILOSEC) 40 mg capsule Take 1 capsule by mouth two times a day. Magnesium 250 mg tab Take 250 mg by mouth once daily. lisinopril (ZESTRIL) 20 mg tablet Take 0.5 tablets by mouth once daily. DICLOFENAC SODIUM TOPICAL Apply 1 application to affected area two times a day. MULTIVITAMIN ORAL Take 1 tablet by mouth once daily. ubidecarenone Q-10 (CO Q-10) 10 mg cap Take 10 mg by mouth once daily. mirtazapine (REMERON) 45 mg tablet Take 1 tablet by mouth daily at bedtime. ondansetron orally disintegrating (ZOFRAN ODT) 4 mg disintegrating tablet Take 1 tablet by mouth every 8 hours as needed for nausea/vomiting. metoprolol succinate ER (TOPROL XL) 50 mg 24 hr tablet Take 1 tablet by mouth once daily. insulin glargine (LANTUS SOLOSTAR U-100 INSULIN) 100 unit/mL (3 mL) Inject 18 Units subcutaneously daily at bedtime. gabapentin (NEURONTIN) 300 mg capsule Take 1 capsule by mouth two times a day. ELIQUIS 5 mg tab(s) Take 1 tablet by mouth every afternoon. phenazopyridine HCl (AZO ORAL) Take by mouth. Gummies OTC POTASSIUM-99 ORAL Take 1 tablet by mouth every 48 hours. ipratropium-albuterol (DUONEB) 0.5 mg-3 mg(2.5 mg base)/3 mL nebu USE 1 VIAL IN NEBULIZER 4 TIMES DAILY MEDICATION, NON-DATABASE Co q 10 b complex Calcium & vit d PRODIGY LANCETS MISC four times daily. phenazopyridine HCl (AZO ORAL) Take 99.5 mg by mouth once daily as needed (bladder pain). MV with Iqy-Zaixqvdc-Latpck (CENTRUM SILVER) 0.4-300-250 mg-mcg-mcg tab Centrum Silver Tablet Centrum Silver Tablet Active 1 TAB DAILY December 23, 2015 3:40pm 12-23-2015 [facility] ([id number]) blood sugar diagnostic (PRODIGY NO CODING) test strip four times daily. No current facility-administered medications for this visit. Objective BP 130/80 (BP Site: Left Arm, BP Position: Sitting) Pulse 85 Temp 37.4 C (99.3 F) Ht 5' 2 (1.575 m) Wt 164 lb (74.4 kg) LMP (LMP Unknown) SpO2 94% BMI 30.00 kg/m Physical Exam Assessment & Plan Jonn Krishnamurthy DO Return in about 6 months (around 08/20/2025). Recording using [employer] software for draft documentation of the visit was discussed with the patient/authorized sales representative gas service; all questions welcomed and answered. Patient/authorized sales representative gas service agreed to proceed documented in this encounter [facility] 02-18-2025 Note HNO ID: [id number] Author: JONN KRISHNAMURTHY DO Service: ? Author Type: Physician Type: Progress Notes Filed: 02/26/2025 22:16 Note Text: Subjective Margarita Betancourt is an 84-year-old female with a history of atrial fibrillation, dementia, and diabetes, accompanied by her daughter who is providing history on her behalf, presenting for follow-up after a recent hospitalization. Recent Hospitalization: - Recent hospitalization for hematemesis with coffee ground emesis. - Diagnosed with a small tear in the lower intestine and an unspecified infection. - Currently experiencing increased swelling in the ankle, making it difficult to wear shoes. Atrial Fibrillation: - Currently taking Eliquis 5 mg BID. - Family expresses concern about fall risk due to medication. Dementia: - Reports memory issues, stating, I can't remember from one day to the next what day it is. - Enjoys watching TV and playing a hunting game on the [employer]. Diabetes: - Recent A1c was 8.7%. Review of Systems Musculoskeletal: (+) hip pain, (+) back pain, (+) ankle swelling, (+) decreased mobility Neurological: (+) memory loss, (+) falls 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 2 diabetes mellitus Dyspnea Edema of upper extremity Fatigue Female stress incontinence Generalized anxiety disorder GERD (gastroesophageal reflux disease) Hip joint painful on movement Insomnia Insulin-treated type 2 diabetes mellitus (HCC) Mixed hyperlipidemia Muscle weakness (generalized) Obesity (BMI 30-39.9) Poor short term memory Premature beats Superficial thrombophlebitis Type 2 diabetes mellitus without complication (HCC) Urinary tract infectious disease PAST SURGICAL HISTORY Procedure Laterality Date BLADDER SURGERY HX LIGATE FALLOPIAN TUBE REPAIR EPIGASTRIC HERNIA,REDUC REVISE MEDIAN N/CARPAL TUNNEL SURG TOTAL ABDOM HYSTERECTOMY 09/04/1983 FAMILY HISTORY Problem Relation Age of Onset Colon Cancer Brother other (myocardial infarction) Brother Social History Tobacco Use Smoking status: Never Smokeless tobacco: Never Vaping Use Vaping status: Never Used Substance Use Topics Alcohol use: Never Drug use: Never Current Outpatient Medications Medication Sig insulin lispro (HUMALOG KWIKPEN INSULIN) 100 unit/mL Inject 18 Units subcutaneously three times a day before meals. INJECT 18 UNITS SUBCUTANEOUSLY THREE TIMES DAILY BEFORE MEALS. omeprazole (PRILOSEC) 40 mg capsule Take 1 capsule by mouth two times a day. Magnesium 250 mg tab Take 250 mg by mouth once daily. lisinopril (ZESTRIL) 20 mg tablet Take 0.5 tablets by mouth once daily. DICLOFENAC SODIUM TOPICAL Apply 1 application to affected area two times a day. MULTIVITAMIN ORAL Take 1 tablet by mouth once daily. ubidecarenone Q-10 (CO Q-10) 10 mg cap Take 10 mg by mouth once daily. mirtazapine (REMERON) 45 mg tablet Take 1 tablet by mouth daily at bedtime. ondansetron orally disintegrating (ZOFRAN ODT) 4 mg disintegrating tablet Take 1 tablet by mouth every 8 hours as needed for nausea/vomiting. metoprolol succinate ER (TOPROL XL) 50 mg 24 hr tablet Take 1 tablet by mouth once daily. insulin glargine (LANTUS SOLOSTAR U-100 INSULIN) 100 unit/mL (3 mL) Inject 18 Units subcutaneously daily at bedtime. gabapentin (NEURONTIN) 300 mg capsule Take 1 capsule by mouth two times a day. ELIQUIS 5 mg tab(s) Take 1 tablet by mouth every afternoon. phenazopyridine HCl (AZO ORAL) Take by mouth. Gummies OTC POTASSIUM-99 ORAL Take 1 tablet by mouth every 48 hours. ipratropium-albuterol (DUONEB) 0.5 mg-3 mg(2.5 mg base)/3 mL nebu USE 1 VIAL IN NEBULIZER 4 TIMES DAILY MEDICATION, NON-DATABASE Co q 10 b complex Calcium AND vit d PRODIGY LANCETS MISC four times daily. phenazopyridine HCl (AZO ORAL) Take 99.5 mg by mouth once daily as needed (bladder pain). MV with Uso-Vwoyhnww-Ydrctq (CENTRUM SILVER) 0.4-300-250 mg-mcg-mcg tab Centrum Silver Tablet Centrum Silver Tablet Active 1 TAB DAILY December 23, 2015 3:40pm 12-23-2015 [facility] ([id number]) blood sugar diagnostic (PRODIGY NO CODING) test strip four times daily. No current facility-administered medications for this visit. Objective BP 130/80 (BP Site: Left Arm, BP Position: Sitting) Pulse 85 Temp 37.4 ?C (99.3 ?F) Ht 5' 2 (1.575 m) Wt 164 lb (74.4 kg) LMP (LMP Unknown) SpO2 94% BMI 30.00 kg/m? Physical Exam GENERAL: NAD, alert and oriented SKIN: unremarkable, no rash or skin lesions. HEAD: normocephalic EYES: PERRLA, EOMI, conjunctiva clear EARS: external ears normal, canals clear, TM's normal. NOSE/SINUSES: Nares normal. Septum midline. OROPHARYNX: lips, mucosa, and tongue normal, good dentition. No oral lesions noted. NECK: Supple, no lymphadenopathy, normal thyroid, no caroti (more content not included)... [facility] 02-18-2025 Note HNO ID: [id number] Author: JONN KRISHNAMURTHY, DO Service: ? Author Type: Physician Type: Progress Notes Filed: 02/26/2025 22:16 Note Text: Subjective Review of Systems 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 2 diabetes mellitus Dyspnea Edema of upper extremity Fatigue Female stress incontinence Generalized anxiety disorder GERD (gastroesophageal reflux disease) Hip joint painful on movement Insomnia Insulin-treated type 2 diabetes mellitus (HCC) Mixed hyperlipidemia Muscle weakness (generalized) Obesity (BMI 30-39.9) Poor short term memory Premature beats Superficial thrombophlebitis Type 2 diabetes mellitus without complication (HCC) Urinary tract infectious disease PAST SURGICAL HISTORY Procedure Laterality Date BLADDER SURGERY HX LIGATE FALLOPIAN TUBE REPAIR EPIGASTRIC HERNIA,REDUC REVISE MEDIAN N/CARPAL TUNNEL SURG TOTAL ABDOM HYSTERECTOMY 09/04/1983 FAMILY HISTORY Problem Relation Age of Onset Colon Cancer Brother other (myocardial infarction) Brother Social History Tobacco Use Smoking status: Never Smokeless tobacco: Never Vaping Use Vaping status: Never Used Substance Use Topics Alcohol use: Never Drug use: Never Current Outpatient Medications Medication Sig insulin lispro (HUMALOG KWIKPEN INSULIN) 100 unit/mL Inject 18 Units subcutaneously three times a day before meals. INJECT 18 UNITS SUBCUTANEOUSLY THREE TIMES DAILY BEFORE MEALS. omeprazole (PRILOSEC) 40 mg capsule Take 1 capsule by mouth two times a day. Magnesium 250 mg tab Take 250 mg by mouth once daily. lisinopril (ZESTRIL) 20 mg tablet Take 0.5 tablets by mouth once daily. DICLOFENAC SODIUM TOPICAL Apply 1 application to affected area two times a day. MULTIVITAMIN ORAL Take 1 tablet by mouth once daily. ubidecarenone Q-10 (CO Q-10) 10 mg cap Take 10 mg by mouth once daily. mirtazapine (REMERON) 45 mg tablet Take 1 tablet by mouth daily at bedtime. ondansetron orally disintegrating (ZOFRAN ODT) 4 mg disintegrating tablet Take 1 tablet by mouth every 8 hours as needed for nausea/vomiting. metoprolol succinate ER (TOPROL XL) 50 mg 24 hr tablet Take 1 tablet by mouth once daily. insulin glargine (LANTUS SOLOSTAR U-100 INSULIN) 100 unit/mL (3 mL) Inject 18 Units subcutaneously daily at bedtime. gabapentin (NEURONTIN) 300 mg capsule Take 1 capsule by mouth two times a day. ELIQUIS 5 mg tab(s) Take 1 tablet by mouth every afternoon. phenazopyridine HCl (AZO ORAL) Take by mouth. Gummies OTC POTASSIUM-99 ORAL Take 1 tablet by mouth every 48 hours. ipratropium-albuterol (DUONEB) 0.5 mg-3 mg(2.5 mg base)/3 mL nebu USE 1 VIAL IN NEBULIZER 4 TIMES DAILY MEDICATION, NON-DATABASE Co q 10 b complex Calcium AND vit d PRODIGY LANCETS MISC four times daily. phenazopyridine HCl (AZO ORAL) Take 99.5 mg by mouth once daily as needed (bladder pain). MV with Nmx-Koxxoaqp-Jxuysh (CENTRUM SILVER) 0.4-300-250 mg-mcg-mcg tab Centrum Silver Tablet Centrum Silver Tablet Active 1 TAB DAILY December 23, 2015 3:40pm 12-23-2015 [facility] ([id number]) blood sugar diagnostic (PRODIGY NO CODING) test strip four times daily. No current facility-administered medications for this visit. Objective BP 130/80 (BP Site: Left Arm, BP Position: Sitting) Pulse 85 Temp 37.4 ?C (99.3 ?F) Ht 5' 2 (1.575 m) Wt 164 lb (74.4 kg) LMP (LMP Unknown) SpO2 94% BMI 30.00 kg/m? Physical Exam Assessment AND Plan Jonn Beauchamp WenceslaoDO Return in about 6 months (around 08/20/2025). Recording using [employer] software for draft documentation of the visit was discussed with the patient/authorized sales representative gas service; all questions welcomed and answered. Patient/authorized sales representative gas service agreed to proceed [facility] 01-02-2025 Miscellaneous Notes SITUATION: son present during today's visit. patient and caregiver reports the following since the last homecare visit: medications/allergies--no changes, no fall. patient reports she has no pain this morning. but son reports that she complains everyday of her hips hurting . Currently taking tylenol for the pain as they ran out of pain meds BACKGROUND: Diagnoses (reason for Home Care): Anemia, noro virus Weight Bearing/Precaution Changes: no changes ASSESSMENT: Focus of visit: Continued seated exercises and added hip abd bilat in seated. Gait training with FWW, standing balance training-reaches while at walker, pt used one hand on walker for support, Physical therapy discharged: goals achieved. Functional performance at discharge - bed mobility independent, transfers independent, ambulation supervision and stairs supervision. Plan of care, goals, and discharge reviewed and agreed upon with patient and/or caregiver. RECOMMENDATION: Patient discharged from home health services. Instructions to include:home exercise program as directed See intervention summary for intervention/education details. documented in this encounter [facility] 01-02-2025 Patient's home Note SITUATION: son present during today's visit. patient and caregiver reports the following since the last homecare visit: medications/allergies--no changes, no fall. patient reports she has no pain this morning. but son reports that she complains everyday of her hips hurting . Currently taking tylenol for the pain as they ran out of pain meds BACKGROUND: Diagnoses (reason for Home Care): Anemia, noro virus Weight Bearing/Precaution Changes: no changes ASSESSMENT: Focus of visit: Continued seated exercises and added hip abd bilat in seated. Gait training with FWW, standing balance training-reaches while at walker, pt used one hand on walker for support, Physical therapy discharged: goals achieved. Functional performance at discharge - bed mobility independent, transfers independent, ambulation supervision and stairs supervision. Plan of care, goals, and discharge reviewed and agreed upon with patient and/or caregiver. RECOMMENDATION: Patient discharged from home health services. Instructions to include:home exercise program as directed See intervention summary for intervention/education details. [facility] Work Phone: 12-31-2024 Miscellaneous Notes 12/31/24 1:41 PM - 1:44 PM ANIMAL CHIROPRACTOR called the pt.'s [id number] Estefany [phone] and her answered the phone. ANIMAL CHIROPRACTOR stated she was calling again to follow-up on the pt. getting ehr hospital bed, etc. He stated she did not get it and ANIMAL CHIROPRACTOR could call Estefany on the other phone number [phone]. ANIMAL CHIROPRACTOR called that phone number and the phone went right to voicemail. documented in this encounter [facility] 12-31-2024 Patient's home Note 12/31/24 1:41 PM - 1:44 PM ANIMAL CHIROPRACTOR called the pt.'s [id number] Estefany [phone] and her answered the phone. ANIMAL CHIROPRACTOR stated she was calling again to follow-up on the pt. getting ehr hospital bed, etc. He stated she did not get it and ANIMAL CHIROPRACTOR could call Estefany on the other phone number [phone]. ANIMAL CHIROPRACTOR called that phone number and the phone went right to voicemail. [facility] Work Phone: 12-31-2024 Miscellaneous Notes SITUATION: Pt in bed upon arrival in no apparent distress. DIL present during today's visit. caregiver reports the following since the last homecare visit: medications/allergies--no changes, no fall. patient reports 0/10 pain this date. BACKGROUND: Diagnoses or reason for Home Care: Anemia, unspecified DM ASSESSMENT: Focus of visit: discharge instruction Occupational therapy discharged: goals partially achieved. Functional Performance at discharge: Feeding independence, Grooming supervision or setup assistance, Upper body dressing supervision or setup assistance, Lower body dressing minimum assistance, Bathing moderate assistance, Toileting minimum assistance, Toilet Transferring supervision or setup assistance and tub/shower transfer with CGA Plan of care, goals, and discharge reviewed and agreed upon with patient/caregiver. RECOMMENDATION: Instructions include: discharged from OT and is active with PT. Post dc recommendations: continue to have assistance with ADL See intervention summary for intervention/education details. documented in this encounter [facility] 12-31-2024 Patient's home Note SITUATION: Pt in bed upon arrival in no apparent distress. DIL present during today's visit. caregiver reports the following since the last homecare visit: medications/allergies--no changes, no fall. patient reports 0/10 pain this date. BACKGROUND: Diagnoses or reason for Home Care: Anemia, unspecified DM ASSESSMENT: Focus of visit: discharge instruction Occupational therapy discharged: goals partially achieved. Functional Performance at discharge: Feeding independence, Grooming supervision or setup assistance, Upper body dressing supervision or setup assistance, Lower body dressing minimum assistance, Bathing moderate assistance, Toileting minimum assistance, Toilet Transferring supervision or setup assistance and tub/shower transfer with CGA Plan of care, goals, and discharge reviewed and agreed upon with patient/caregiver. RECOMMENDATION: Instructions include: discharged from OT and is active with PT. Post dc recommendations: continue to have assistance with ADL See intervention summary for intervention/education details. [facility] Work Phone: 12-25-2024 Telephone encounter Note Pt discharged from Home care nursing today. Family express they are able to manage her nursing needs. Pt no longer has a skilled nurse need. Pt will continue with [facility] therapies. [facility] Work Phone: 12-25-2024 Miscellaneous Notes Pt discharged from Home care nursing today. Family express they are able to manage her nursing needs. Pt no longer has a skilled nurse need. Pt will continue with [facility] therapies. documented in this encounter [facility] 12-25-2024 Miscellaneous Notes SITUATION: [facility] Discipline Discharge visit completed today. daughter also present during today's visit. patient and caregiver reports the following changes since the last home care visit: Allergies--reviewed Medications--none Falls--none BACKGROUND: Reason for Home Care: Anemia, unspecified ASSESSMENT: SN greeted at door by caregiver : Upon entrance patient found in chair. Patient appears in no acute distress. Patient/CG concerns verbalized today: none Vitals (see flow sheet for details): stable SN findings today: Pt presents today in her home her daughter is present. Pt uses a walker for assist Pt is pleasant and cooperative. Pt has advancing dementia and requires more assist with adls' and safety awareness. pt has progressed well towards her nursing goals. pt and daughter agree they feel they are able to manage her nursing needs. pt given discharge instructions and agrees to continue with [facility] therapy. See intervention summary for education details and any skills performed. Specific SN discharge instructions: Continue to monitor for S/S of anemia, monitor diet and medication to manage DMII and BP's Patient encouraged to take all medication as ordered, eat a well-balanced diet and follow up with all physician appointments. Additional follow ups recommended: none NOMNC: Not applicable this visit Discharged due to no further SN skilled need. RECOMMENDATION: Patient to continue with PT and OT services. documented in this encounter [facility] 12-25-2024 Patient's home Note SITUATION: [facility] Discipline Discharge visit completed today. daughter also present during today's visit. patient and caregiver reports the following changes since the last home care visit: Allergies--reviewed Medications--none Falls--none BACKGROUND: Reason for Home Care: Anemia, unspecified ASSESSMENT: SN greeted at door by caregiver : Upon entrance patient found in chair. Patient appears in no acute distress. Patient/CG concerns verbalized today: none Vitals (see flow sheet for details): stable SN findings today: Pt presents today in her home her daughter is present. Pt uses a walker for assist Pt is pleasant and cooperative. Pt has advancing dementia and requires more assist with adls' and safety awareness. pt has progressed well towards her nursing goals. pt and daughter agree they feel they are able to manage her nursing needs. pt given discharge instructions and agrees to continue with [facility] therapy. See intervention summary for education details and any skills performed. Specific SN discharge instructions: Continue to monitor for S/S of anemia, monitor diet and medication to manage DMII and BP's Patient encouraged to take all medication as ordered, eat a well-balanced diet and follow up with all physician appointments. Additional follow ups recommended: none NOMNC: Not applicable this visit Discharged due to no further SN skilled need. RECOMMENDATION: Patient to continue with PT and OT services. [facility] Work Phone: 12-24-2024 Miscellaneous Notes SITUATION: Pt. seen for DIAZ Routine Visit. daughter present during today's visit. caregiver reports the following since the last homecare visit: medications/allergies--no changes, no fall. patient reports She's feeling pretty good. Caregiver and Pt. reporting she has been performing her arm exercises daily. BACKGROUND: Diagnoses or reason for Home Care: Anemia, unspecified ASSESSMENT: Focus of Visit Daily functional tasks, balance Patient identified goals to get better Plan of care, goals, and visit frequency reviewed and agreed upon with patient and/or caregiver. See intervention summary for intervention/education details. Current Discharge Plan: remain in community with/without caregiver support. Anticipate discharge by 01/03/2025 RECOMMENDATION: Next visit to focus on Pt. to be seen next by OTR/L for a discharge visit. documented in this encounter [facility] 12-24-2024 Patient's home Note SITUATION: Pt. seen for DIAZ Routine Visit. daughter present during today's visit. caregiver reports the following since the last homecare visit: medications/allergies--no changes, no fall. patient reports She's feeling pretty good. Caregiver and Pt. reporting she has been performing her arm exercises daily. BACKGROUND: Diagnoses or reason for Home Care: Anemia, unspecified ASSESSMENT: Focus of Visit Daily functional tasks, balance Patient identified goals to get better Plan of care, goals, and visit frequency reviewed and agreed upon with patient and/or caregiver. See intervention summary for intervention/education details. Current Discharge Plan: remain in community with/without caregiver support. Anticipate discharge by 01/03/2025 RECOMMENDATION: Next visit to focus on Pt. to be seen next by OTR/L for a discharge visit. [facility] Work Phone: 12-23-2024 Miscellaneous Notes SITUATION: daughter in law present during today's visit. patient and caregiver reports the following since the last homecare visit: medications/allergies--no changes, no fall. patient reports she has no pain this morning. Patient had just gotten up from bed before start of session. BACKGROUND: Diagnoses (reason for Home Care): Anemia, noro virus Weight Bearing/Precaution Changes: no changes ASSESSMENT: Focus of visit: Continued seated exercises and added hip abd bilat in seated. Gait training with FWW, standing balance training-reaches while at walker, pt used one hand on walker for support, clinitian SBA. Issued NOMNC this date and caregiver/Estefany signed for pt. Plan of care, goals, and visit frequency reviewed and agreed upon with patient and/or caregiver. Current Discharge Plan: independent with home exercise program with family support Anticipate discharge by 01/02/2025 RECOMMENDATION: Next visit to focus on: Progress seated exercises and standing balance at walker, continue gait training with walker, consider adding standing therex such as standing marches or heel/toe raises See intervention summary for intervention/education details. All care and documentation completed by Lorraine Garcia PTA Student. Joint visit completed with Lorraine Garcia PTA student. I was present for 100% of the visit and participated in portions of the visit and documentation for this patient. documented in this encounter [facility] 12-23-2024 Miscellaneous Notes .join documented in this encounter [facility] 12-23-2024 Patient's home Note SITUATION: daughter in law present during today's visit. patient and caregiver reports the following since the last homecare visit: medications/allergies--no changes, no fall. patient reports she has no pain this morning. Patient had just gotten up from bed before start of session. BACKGROUND: Diagnoses (reason for Home Care): Anemia, noro virus Weight Bearing/Precaution Changes: no changes ASSESSMENT: Focus of visit: Continued seated exercises and added hip abd bilat in seated. Gait training with FWW, standing balance training-reaches while at walker, pt used one hand on walker for support, clinitian SBA. Issued NOMNC this date and caregiver/Estefany signed for pt. Plan of care, goals, and visit frequency reviewed and agreed upon with patient and/or caregiver. Current Discharge Plan: independent with home exercise program with family support Anticipate discharge by 01/02/2025 RECOMMENDATION: Next visit to focus on: Progress seated exercises and standing balance at walker, continue gait training with walker, consider adding standing therex such as standing marches or heel/toe raises See intervention summary for intervention/education details. All care and documentation completed by Lorraine Garcia PTA Student. [facility] Work Phone: 12-23-2024 Plan of care note Joint visit completed with Lorraine Garcia PTA student. I was present for 100% of the visit and participated in portions of the visit and documentation for this patient. [facility] Work Phone: 12-23-2024 Plan of care note .join T [facility] Work Phone: 12-18-2024 Miscellaneous Notes 12/18/24 12;53 PM - 12;57 PM ANIMAL CHIROPRACTOR called the pt.'s gptjlids-eo-gix Estefany regarding ANIMAL CHIROPRACTOR spoke with Lila with [facility] today and she stated that they received the orders for the hospitla bed, bedside commode and transfer bath bench. ANIMAL CHIROPRACTOR stated she stated it was in process. ANIMAL CHIROPRACTOR asked Estefany if she heard from [facility] and she stated that she did. She stated she got the paperwork and complteed it and took back regarding the pt. getting VA Benefits. The pt.'s udaobdtx-by-bgw stated they were doing good. [facility] provided Estefany with the phone number for [facility] [phone] to call with any questions. ANIMAL CHIROPRACTOR informed Estefany to call ANIMAL CHIROPRACTOR with any needs. documented in this encounter [facility] 12-18-2024 Patient's home Note 12/18/24 12;53 PM - 12;57 PM ANIMAL CHIROPRACTOR called the pt.'s buqxgkpy-vr-rtv Estefany regarding ANIMAL CHIROPRACTOR spoke with Lila with [facility] today and she stated that they received the orders for the hospitla bed, bedside commode and transfer bath bench. ANIMAL CHIROPRACTOR stated she stated it was in process. ANIMAL CHIROPRACTOR asked Estefany if she heard from the [facility] and she stated that she did. She stated she got the paperwork and complteed it and took back regarding the pt. getting [facility] Benefits. The pt.'s pctmfsmr-dk-mam stated they were doing good. ANIMAL CHIROPRACTOR provided Estefany with the phone number for [facility] [phone] to call with any questions. ANIMAL CHIROPRACTOR informed Estefany to call ANIMAL CHIROPRACTOR with any needs. [facility] Work Phone: 12-18-2024 Miscellaneous Notes 12/18/24 12:15 PM - 12:17 PM ANIMAL CHIROPRACTOR received a phone call back from Lila with [employer] and she stated they received the orders for the pt. to get a hospital bed, bedside commode and transfer bath bench. She stated it was in process. documented in this encounter [facility] 12-18-2024 Patient's home Note 12/18/24 12:15 PM - 12:17 PM ANIMAL CHIROPRACTOR received a phone call back from Lila with [employer] and she stated they received the orders for the pt. to get a hospital bed, bedside commode and transfer bath bench. She stated it was in process. [facility] Work Phone: 12-18-2024 Miscellaneous Notes 12/18/24 10:38 AM - 10:42 AM ANIMAL CHIROPRACTOR called [employer] and left a message that ANIMAL CHIROPRACTOR was calling to see if they received orders for the pt. to get a hospital bed, bedside commode and transfer bath bench. ANIMAL CHIROPRACTOR left her name and phone number for someone to call ANIMAL CHIROPRACTOR back. documented in this encounter [facility] 12-18-2024 Patient's home Note 12/18/24 10:38 AM - 10:42 AM ANIMAL CHIROPRACTOR called [facility] and left a message that ANIMAL CHIROPRACTOR was calling to see if they received orders for the pt. to get a hospital bed, bedside commode and transfer bath bench. ANIMAL CHIROPRACTOR left her name and phone number for someone to call ANIMAL CHIROPRACTOR back. [facility] Work Phone: 12-17-2024 Miscellaneous Notes SITUATION: kakgxgml-rp-xqk present during today's visit. caregiver reports the following since the last homecare visit: medications/allergies--no changes, no fall. caregiver reports pt is doing better now that she's home. Patient reports no pain. Doctor is ordering meds for chronic back pain. BACKGROUND: Diagnoses (reason for Home Care): Anemia, noro virus Weight Bearing/Precaution Changes: no changes ASSESSMENT: Focus of visit: Patient and caregiver arrived home from running errands and getting lunch prior to start of treatment. Patient demonstrated car transfer out of van with assistance from her daughter. Patient walked with FWW to front door and continued seated ther-ex in living room. Patient was able to demonstrate proper form of ther-ex with verbal and tactile cues. HEP handout was provided for pt and pt's caregiver. Plan of care, goals, and visit frequency reviewed and agreed upon with patient and/or caregiver. Current Discharge Plan: independent with home exercise program and with caregiver assisstance Anticipate discharge by 01/02/2025 RECOMMENDATION: Next visit to focus on: Review HEP and progress reps/ sets if pt demonstrates good tolerance and understanding. Continue gait training with FWW. Consider introducing standing ther-ex with UE support. See intervention summary for intervention/education details. Lorraine Garcia, BETHANY student, participated in portions of the treatment and documentation of this visit documented in this encounter [facility] 12-17-2024 Patient's home Note SITUATION: ncgyapwv-hn-tdo present during today's visit. caregiver reports the following since the last homecare visit: medications/allergies--no changes, no fall. caregiver reports pt is doing better now that she's home. Patient reports no pain. Doctor is ordering meds for chronic back pain. BACKGROUND: Diagnoses (reason for Home Care): Anemia, noro virus Weight Bearing/Precaution Changes: no changes ASSESSMENT: Focus of visit: Patient and caregiver arrived home from running errands and getting lunch prior to start of treatment. Patient demonstrated car transfer out of van with assistance from her daughter. Patient walked with FWW to front door and continued seated ther-ex in living room. Patient was able to demonstrate proper form of ther-ex with verbal and tactile cues. HEP handout was provided for pt and pt's caregiver. Plan of care, goals, and visit frequency reviewed and agreed upon with patient and/or caregiver. Current Discharge Plan: independent with home exercise program and with caregiver assisstance Anticipate discharge by 01/02/2025 RECOMMENDATION: Next visit to focus on: Review HEP and progress reps/ sets if pt demonstrates good tolerance and understanding. Continue gait training with FWW. Consider introducing standing ther-ex with UE support. See intervention summary for intervention/education details. Lorraine Garcia, BETHANY student, participated in portions of the treatment and documentation of this visit eah [facility] Work Phone: 12-16-2024 Miscellaneous Notes SITUATION: Fpc routine visit completed today. daughter also present during today's visit. patient and caregiver reports the following: Allergies--reviewed Medications--reviewed current medications Falls--None DME-Reviewed BACKGROUND: Reason for Home Care: Anemia, unspecified ASSESSMENT: SN greeted at door by caregiver. Upon entrance patient found in chair Patient appears in no acute distress. Patient/CG concerns verbalized today: none Vitals (see flow sheet for details): stable SN findings today: Pt presents today in her home her daughter in law is present. Pt is cooperative with confusion noted per her daughter express is her baseline. Pt daughter in law express she did get the mesage this SN left with her voice mail and thet she has reduced her lisinipril to 10 mg. Pt daughter in law express she has noted Pt BP to bbe higher staying within 110/120 systolic and 70-60's diastolic. She express Pt is no longer sleeping most of the day away. Pt and daughter in law educated on Anemia management, eating foods high in iron, monitoring stool for alessandro s/s of blod vomiting coffe ground like vomit ot red/blood vomit., To call 911 for thsoe s/s. pt expressed understanding See intervention summary for education details. Patient demonstrated a need for further skilled SN services for chronic disease management & education, medication education, wound/skin care and safety. Current Discharge plan: self-care and family support RECOMMENDATION: Next visit to focus on (be specific): how is stamina? BP's documented in this encounter [facility] 12-16-2024 Patient's home Note SITUATION: Fpc routine visit completed today. daughter also present during today's visit. patient and caregiver reports the following: Allergies--reviewed Medications--reviewed current medications Falls--None DME-Reviewed BACKGROUND: Reason for Home Care: Anemia, unspecified ASSESSMENT: SN greeted at door by caregiver. Upon entrance patient found in chair Patient appears in no acute distress. Patient/CG concerns verbalized today: none Vitals (see flow sheet for details): stable SN findings today: Pt presents today in her home her daughter in law is present. Pt is cooperative with confusion noted per her daughter express is her baseline. Pt daughter in law express she did get the mesage this SN left with her voice mail and thet she has reduced her lisinipril to 10 mg. Pt daughter in law express she has noted Pt BP to bbe higher staying within 110/120 systolic and 70-60's diastolic. She express Pt is no longer sleeping most of the day away. Pt and daughter in law educated on Anemia management, eating foods high in iron, monitoring stool for alessandro s/s of blod vomiting coffe ground like vomit ot red/blood vomit., To call 911 for thsoe s/s. pt expressed understanding See intervention summary for education details. Patient demonstrated a need for further skilled SN services for chronic disease management & education, medication education, wound/skin care and safety. Current Discharge plan: self-care and family support RECOMMENDATION: Next visit to focus on (be specific): how is stamina? BP's [facility] Work Phone: 12-13-2024 Telephone encounter Note Fax sent over to [phone] and received fax ok transmission at 2:24pm. Paco Mcelroy [facility] 12-13-2024 Miscellaneous Notes Fax sent over to [phone] and received fax ok transmission at 2:24pm. Paco Mcelroy Addended by: JONN KRISHNAMURTHY on: 12/13/2024 02:06 PM Modules accepted: Orders Done 12/13/24 ANIMAL CHIROPRACTOR spoke with Estefany the patient's lggcziyk-jk-fea today and she would like the patient to get a hospital bed, bedside commode and tub transfer bench. Please fax orders to [facility] with the patient's demographics. [facility] Fax number [phone] and the phone number [phone]. Thank You, documented in this encounter [facility] 12-13-2024 Note Addended by: JONN SALAZAR on: 12/13/2024 02:06 PM Modules accepted: Orders [facility] 12-13-2024 Telephone encounter Note Done [facility] 12-13-2024 Telephone encounter Note 12/13/24 ANIMAL CHIROPRACTOR spoke with Estefany the patient's vtvncgvg-rp-enp today and she would like the patient to get a hospital bed, bedside commode and tub transfer bench. Please fax orders to [facility] with the patient's demographics. [facility] Fax number [phone] and the phone number [phone]. Thank You, T [facility] Work Phone: 12-13-2024 Miscellaneous Notes 12/13/24 1:47 PM - 1;52 PM ANIMAL CHIROPRACTOR called the pt.'s aymijpnb-pq-qqk Estefany and spoke to her regarding follow-up on the Emails sent to them. She stated that they received the one about [facility] Office and Aid and Attendance Pension. ANIMAL CHIROPRACTOR stated she donell Email the lsit of Agencies to hire an Aide again. The pt.'s wpshowtw-ec-ayp stated she has called the [facility] and left a message and she is waiting for them to call her back. The pt.'s olghpeli-ur-vkc stated the pt. needs a hospital bed, bedside commode and tub transfer bench. ANIMAL CHIROPRACTOR stated she coukd message the to fax orders to [facility] for the hospital bed, bedside commode and tub transfer bench. ANIMAL CHIROPRACTOR stated that Medicare will most likely not cover the tub transfer bench. The pt.'s yhieldiw-kq-kfn she stated that the pt.'s insurnace stated it would be covered and she wants orders faxed to [facility]. ANIMAL CHIROPRACTOR informed the pt.'s perxcedr-cf-yqg to call ANIMAL CHIROPRACTOR with any needs. 12/13/[address] Jonn Krishnamurthy - ANIMAL CHIROPRACTOR spoke with Estefany the patient's wzkxmqlo-fp-fgm today and she would like the patient to get a hospital bed, bedside commode and tub transfer bench. Please fax orders to [facility] with the patient's demographics. [facility] Fax number [phone] and the phone number [phone]. Thank You, 12/13/24 2:03 PM ANIMAL CHIROPRACTOR Emailed the pt.'s daughter-inplaw Estefany - information on Agencies to hire an Aide in the home and information on [facility] [employer] on [employer] Disabilities for PASSPORT. documented in this encounter [facility] 12-13-2024 Patient's home Note 12/13/24 1:47 PM - 1;52 PM ANIMAL CHIROPRACTOR called the pt.'s uhtbcuss-fq-duv Estefany and spoke to her regarding follow-up on the Emails sent to them. She stated that they received the one about [facility] Office and Aid and Attendance Pension. ANIMAL CHIROPRACTOR stated she donell Email the lsit of Agencies to hire an Aide again. The pt.'s ggkmlljl-bs-ufe stated she has called the [facility] Office and left a message and she is waiting for them to call her back. The pt.'s ykhpvbaw-ia-pfu stated the pt. needs a hospital bed, bedside commode and tub transfer bench. ANIMAL CHIROPRACTOR stated she coukd message the to fax orders to [facility] for the hospital bed, bedside commode and tub transfer bench. ANIMAL CHIROPRACTOR stated that Medicare will most likely not cover the tub transfer bench. The pt.'s wmroxccx-ba-amc she stated that the pt.'s insurnace stated it would be covered and she wants orders faxed to [facility]. ANIMAL CHIROPRACTOR informed the pt.'s plnrfyio-sf-hsp to call ANIMAL CHIROPRACTOR with any needs. 12/13/[address] Jonn Krishnamurthy - SHASHANK spoke with Estefany the patient's lqfkhgcn-xp-hjr today and she would like the patient to get a hospital bed, bedside commode and tub transfer bench. Please fax orders to [facility] with the patient's demographics. [facility] Fax number [phone] and the phone number [phone]. Thank You, 12/13/24 2:03 PM ANIMAL CHIROPRACTOR Emailed the pt.'s daughter-infahad Allison - information on Agencies to hire an Aide in the home and information on [facility] [employer] for PASSPORT. [facility] Work Phone: 12-13-2024 Miscellaneous Notes SN recived follow up message from Dr krishnamurthy Regarding Pt low BP's and Family reducing or holding her medications. message was for family to Give half dose zestril ie 10 mg daily . SN called Daughter in law phone left twin on her voice mail making her aware of theses new orders. documented in this encounter [facility] 12-13-2024 Patient's home Note SN recived follow up message from Dr krishnamurthy Regarding Pt low BP's and Family reducing or holding her medications. message was for family to Give half dose zestril ie 10 mg daily . SN called Daughter in law phone left nessage on her voice mail making her aware of theses new orders. [facility] Work Phone: 12-10-2024 Miscellaneous Notes SITUATION: daughter present during today's visit. caregiver reports the following since the last homecare visit: medications/allergies--no changes, no fall. patient reports no complaints. SN and OT both present. SN and dtr report that holding the metoprolol has helped with her low BP and HR readings . BACKGROUND: Diagnoses (reason for Home Care): [facility] 11/11- [facility] on 11/19/24-12/04/24. 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 Reviewed and explained homecare services. Plan of care, goals, and visit frequency developed, reviewed, and agreed upon with patient and/or caregiver. HOME: 1 story , 2 small platform steps with no rail entry. Lives with son and dtr in law who are primary cg's PLF: amb with WW for several years due to impaired balance and falls. Able to move about in the home with her WW , supervised for safety . Patient Goal: pt reports no goals, Cg would like her to maximize her strength and function Patient will benefit from continued physical therapy to address the following deficits: strength, balance, gait, endurance, transfers and stair negotiation. Current Discharge Plan:family support. Anticipate discharge by tbd RECOMMENDATION: Next visit to focus on develop HEP and give written copy to CG See intervention summary for intervention/education details. documented in this encounter [facility] 12-10-2024 Patient's home Note SITUATION: daughter present during today's visit. caregiver reports the following since the last homecare visit: medications/allergies--no changes, no fall. patient reports no complaints. SN and OT both present. SN and dtr report that holding the metoprolol has helped with her low BP and HR readings . BACKGROUND: Diagnoses (reason for Home Care): [facility] on 11/19/24-04/02/25. 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 Reviewed and explained homecare services. Plan of care, goals, and visit frequency developed, reviewed, and agreed upon with patient and/or caregiver. HOME: 1 story , 2 small platform steps with no rail entry. Lives with son and dtr in law who are primary cg's PLF: amb with WW for several years due to impaired balance and falls. Able to move about in the home with her WW , supervised for safety . Patient Goal: pt reports no goals, Cg would like her to maximize her strength and function Patient will benefit from continued physical therapy to address the following deficits: strength, balance, gait, endurance, transfers and stair negotiation. Current Discharge Plan:family support. Anticipate discharge by tbd RECOMMENDATION: Next visit to focus on develop HEP and give written copy to CG See intervention summary for intervention/education details. [facility] Work Phone: 12-10-2024 Telephone encounter Note Pt family express Pt was having Low blood pressure over the past few days since she was able to obtain a automatic BP cuff. - 106/80 in am, 96/74 in PM. - 94/80 am . 110/90 PM, -8 113/60 with their automatic cuff This Nurse manual BP was 118/60 Pt is taking metoprolol succinate ER (TOPROL XL) 50 mg 24 hr tablet Take 1 tablet by mouth once daily. And lisinopril (ZESTRIL) 20 mg tablet Take 1 tablet by mouth once daily. She express she has held the Metoprolol since - with her first Lo BP Would you loke to make any changes [facility] Work Phone: 12-10-2024 Miscellaneous Notes Pt family express Pt was having Low blood pressure over the past few days since she was able to obtain a automatic BP cuff. 4-6 106/80 in am, 96/74 in PM. 4-7 94/80 am . 110/90 PM, 4-8 113/60 with their automatic cuff This Nurse manual BP was 118/60 Pt is taking metoprolol succinate ER (TOPROL XL) 50 mg 24 hr tablet Take 1 tablet by mouth once daily. And lisinopril (ZESTRIL) 20 mg tablet Take 1 tablet by mouth once daily. She express she has held the Metoprolol since -6 with her first Lo BP Would you loke to make any changes documented in this encounter [facility] 12-10-2024 Miscellaneous Notes SITUATION: [facility] routine visit completed today. daughter and son also present during today's visit. patient and caregiver reports the following: Allergies--reviewed Medications--reviewed current medications Falls--None DME-Reviewed BACKGROUND: Reason for Home Care: Anemia, unspecified ASSESSMENT: SN greeted at door by caregiver. Upon entrance patient found in bed Patient appears in no acute distress. Vitals (see flow sheet for details): stable SN findings today: Pt presents today in her home Pt lives with her family. Pt family express Pt was having Low blood pressure over the past few days since she was able to obtain a automatic BP cuff. 4-6 106/80 in am, 96/74 in PM. 4-7 94/80 am . 110/90 PM, 4-8 113/60 with their automatic cuff This Nurse manual BP was 118/60 Pt is taking metoprolol succinate ER (TOPROL XL) 50 mg 24 hr tabletTake 1 tablet by mouth once daily.And lisinopril (ZESTRIL) 20 mg tablet. Take 1 tablet by mouth once daily. She (Daughter in Law) express she has held the Metoprolol since 12-08 with her first low BP. SN sent message to PCP making him aware of this. Pt is pleasnt but confused. Pt answers no to every question asked. Family express this is her baseline. Family is actively involved in managing Pt care ans assuring she has care 24 hours a day. Family educated on continuing to monitor Pt for blood in her stool or vomit ( if she vomits). And if they occur to call 911. Educated on food higher in iron. Pt and family express understanding See intervention summary for education details. Patient demonstrated a need for further skilled SN services for chronic disease management & education, medication education and safety. Current Discharge plan: self-care and family support RECOMMENDATION: Next visit to focus on (be specific): how are BP's documented in this encounter [facility] 12-10-2024 Patient's home Note SITUATION: [facility] routine visit completed today. daughter and son also present during today's visit. patient and caregiver reports the following: Allergies--reviewed Medications--reviewed current medications Falls--None DME-Reviewed BACKGROUND: Reason for Home Care: Anemia, unspecified ASSESSMENT: SN greeted at door by caregiver. Upon entrance patient found in bed Patient appears in no acute distress. Vitals (see flow sheet for details): stable SN findings today: Pt presents today in her home Pt lives with her family. Pt family express Pt was having Low blood pressure over the past few days since she was able to obtain a automatic BP cuff. 4- 106/80 in am, 96/74 in PM. 4- 94/80 am . 110/90 PM, 4-8 113/60 with their automatic cuff This Nurse manual BP was 118/60 Pt is taking metoprolol succinate ER (TOPROL XL) 50 mg 24 hr tabletTake 1 tablet by mouth once daily.And lisinopril (ZESTRIL) 20 mg tablet. Take 1 tablet by mouth once daily. She (Daughter in Law) express she has held the Metoprolol since 12-08 with her first low BP. SN sent message to PCP making him aware of this. Pt is pleasnt but confused. Pt answers no to every question asked. Family express this is her baseline. Family is actively involved in managing Pt care ans assuring she has care 24 hours a day. Family educated on continuing to monitor Pt for blood in her stool or vomit ( if she vomits). And if they occur to call 911. Educated on food higher in iron. Pt and family express understanding See intervention summary for education details. Patient demonstrated a need for further skilled SN services for chronic disease management & education, medication education and safety. Current Discharge plan: self-care and family support RECOMMENDATION: Next visit to focus on (be specific): how are BP's [facility] Work Phone: 12-10-2024 Telephone encounter Note 12/10/24 ANIMAL CHIROPRACTOR called the pt.'s zwxfdttl-fa-gyn Estefany regarding ANIMAL CHIROPRACTOR visit and community resources for more help with the pt.'s care. The pt.'s hifewybb-ez-zvv stated she was looking for Aid assist with the pt. She stated that she wanted to know what the pt.'s insurance covered. ANIMAL CHIROPRACTOR educated the pt.'s fuyrtrbq-kn-fcx on the WAREHOUSE SHIPPING CLERK for bathing under Medicare as long as she has skilled services such as Nursing and/or Therapy. Estefany stated that the OT was coming to see the pt. today. The pt.'s skhdlulw-rp-izp stated her and her the pt.'s son have moved in with the pt. She stated she has been caring for the pt. for 9 yrs. ANIMAL CHIROPRACTOR asked if the pt. owned her home and she stated that the pt. did own her home. ANIMAL CHIROPRACTOR educated on [facility] Agency on Aging & Disabilities for PASSPORT. The pt.'s pfjbkopu-jo-ufm stated they pay all the bills and the hosue payment. She stated that the pt. receives $1600 a month. ANIMAL CHIROPRACTOR discussed Estate Recovery wth the pt.'s mmxfzchd-ud-xhu when on PASSPORT. The pt.'s mmqgtock-ey-gbx stated she would hire an Aide but was not sure where to look for an Aide. ANIMAL CHIROPRACTOR educated her on Agencies to hire an Aide in the home. She asked about the pt. getting her incontinent supplies covered and ANIMAL CHIROPRACTOR discussed Medicaid covers incontinent supplies. The pt.'s daughter stated that the pt. is in [facility] Medicare Advatga eplan and got changed to this on 12/03/24. She stated she gets a card to use for items needed. The pt.'s xxzywcvh-mk-mqb asked ANIMAL CHIROPRACTOR to Email them information on Agencies to hire an Aide and information on PASSPORT. She stated her and her the pt.'s son will look it over. She stated the pt.'s son her is her POA and makes the decisions. The pt.'s eupwuczk-di-zwz did not want ANIMAL CHIROPRACTOR visit at this time. ANIMAL CHIROPRACTOR discussed correction placement and the pt.'s drsjompb-br-xmc stated they did not want the pt. in a correction retirement. She stated she would like the pt. to get a WAREHOUSE SHIPPING CLERK. ANIMAL CHIROPRACTOR will look into the WAREHOUSE SHIPPING CLERK. ANIMAL CHIROPRACTOR asked for her Email and she stated it was their business [email or web address]. ANIMAL CHIROPRACTOR provided the pt.'s lctppdnc-hn-qml with her name and phone number to call ANIMAL CHIROPRACTOR with any needs. The pt. 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 ANIMAL CHIROPRACTOR Emailed the pt.'s lmnvmfjm-tv-nry Estefany information on Agencies to hire an Aide in the home and information on [facility] Agency on Aging & Disabilities for PASSPORT and information on [facility] Services Office and Aid and Attendance Pension. Thank You, D [facility] Work Phone: 12-10-2024 Miscellaneous Notes 12/10/24 ANIMAL CHIROPRACTOR called the pt.'s egszqgxq-wc-ebq Estefany regarding ANIMAL CHIROPRACTOR visit and community resources for more help with the pt.'s care. The pt.'s iybjvrzl-sh-wtr stated she was looking for Aid assist with the pt. She stated that she wanted to know what the pt.'s insurance covered. ANIMAL CHIROPRACTOR educated the pt.'s smewsfja-mp-iuq on the WAREHOUSE SHIPPING CLERK for bathing under Medicare as long as she has skilled services such as Nursing and/or Therapy. Estefany stated that the OT was coming to see the pt. today. The pt.'s zvkqxpxw-zh-qcy stated her and her the pt.'s son have moved in with the pt. She stated she has been caring for the pt. for 9 yrs. ANIMAL CHIROPRACTOR asked if the pt. owned her home and she stated that the pt. did own her home. ANIMAL CHIROPRACTOR educated on [facility]irection [facility] on Aging & Disabilities for PASSPORT. The pt.'s zbcuhqna-zi-iju stated they pay all the bills and the hosue payment. She stated that the pt. receives $1600 a month. ANIMAL CHIROPRACTOR discussed Estate Recovery wth the pt.'s fgaymwss-cz-bvw when on PASSPORT. The pt.'s sowrghxx-gl-uhs stated she would hire an Aide but was not sure where to look for an Aide. ANIMAL CHIROPRACTOR educated her on Agencies to hire an Aide in the home. She asked about the pt. getting her incontinent supplies covered and ANIMAL CHIROPRACTOR discussed Medicaid covers incontinent supplies. The pt.'s daughter stated that the pt. is in [facility] Medicare Advatga eplan and got changed to this on 12/03/24. She stated she gets a card to use for items needed. The pt.'s jnaaghzn-ob-yps asked ANIMAL CHIROPRACTOR to Email them information on Agencies to hire an Aide and information on PASSPORT. She stated her and her the pt.'s son will look it over. She stated the pt.'s son her is her POA and makes the decisions. The pt.'s tgkrtgfp-bb-ddd did not want ANIMAL CHIROPRACTOR visit at this time. ANIMAL CHIROPRACTOR discussed correction placement and the pt.'s ojbxcuqf-ny-zoz stated they did not want the pt. in a correction retirement. She stated she would like the pt. to get a WAREHOUSE SHIPPING CLERK. ANIMAL CHIROPRACTOR will look into the WAREHOUSE SHIPPING CLERK. ANIMAL CHIROPRACTOR asked for her Email and she stated it was their business [email or web address]. ANIMAL CHIROPRACTOR provided the pt.'s pgeuubjz-yn-eeg with her name and phone number to call ANIMAL CHIROPRACTOR with any needs. The pt. is and her was a [employer] and served during wartime. ANIMAL CHIROPRACTOR Emailed the pt.'s vldfdaus-qc-njh Estefany information on Agencies to hire an Aide in the home and information on [facility] Agency on Aging & Disabilities for PASSPORT and information on [facility] Services Office and Aid and Attendance Pension. Thank You, documented in this encounter [facility] 12-10-2024 Miscellaneous Notes 12/10/24 8:43 AM - 8:53 AM ANIMAL CHIROPRACTOR called the pt.'s fkzseuoi-lr-bsx Estefany regarding ANIMAL CHIROPRACTOR visit and community resources for more help with the pt.'s care. The pt.'s hkayecbb-ej-dmv stated she was looking for Aid assist with the pt. She stated that she wanted to know what the pt.'s insurance covered. ANIMAL CHIROPRACTOR educated the pt.'s hqbkglyc-hy-urm on the WAREHOUSE SHIPPING CLERK for bathing under Medicare as long as she has skilled services such as Nursing and/or Therapy. Estefany stated that the OT was coming to see the pt. today. The pt.'s qikrdlbj-cx-xpg stated her and her the pt.'s son have moved in with the pt. She stated she has been caring for the pt. for 9 yrs. ANIMAL CHIROPRACTOR asked if the pt. owned her home and she stated that the pt. did own her home. ANIMAL CHIROPRACTOR educated on [facility] Agency on Aging & Disabilities for PASSPORT. The pt.'s bqbtfgeh-ta-qlu stated they pay all the bills and the hosue payment. She stated that the pt. receives $1600 a month. ANIMAL CHIROPRACTOR discussed Estate Recovery wth the pt.'s dxngfuce-ty-gbl when on PASSPORT. The pt.'s zjqqpjoz-ud-hio stated she would hire an Aide but was not sure where to look for an Aide. ANIMAL CHIROPRACTOR educated her on Agencies to hire an Aide in the home. She asked about the pt. getting her incontinent supplies covered and ANIMAL CHIROPRACTOR discussed Medicaid covers incontinent supplies. The pt.'s daughter stated that the pt. is in [facility] Medicare Advantage plan and got changed to this on 12/03/24. She stated she gets a card to use for items needed. The pt.'s fwsnkfdv-mm-ykb asked ANIMAL CHIROPRACTOR to Email them information on Agencies to hire an Aide and information on PASSPORT. She stated her and her the pt.'s son will look it over. She stated the pt.'s son her is her POA and makes the decisions. The pt.'s cugqkuyr-id-yfh did not want ANIMAL CHIROPRACTOR visit at this time. ANIMAL CHIROPRACTOR discussed correction placement and the pt.'s miplyajs-wk-qlv stated they did not want the pt. in a correction retirement. She stated she would like the pt. to get a WAREHOUSE SHIPPING CLERK. ANIMAL CHIROPRACTOR will look into the WAREHOUSE SHIPPING CLERK. ANIMAL CHIROPRACTOR asked for her Email and she stated it was their business [email or web address]. ANIMAL CHIROPRACTOR provided the pt.'s hiqvtatd-ta-qor with her name and phone number to call ANIMAL CHIROPRACTOR with any needs. 12/10/24 9:14 AM ANIMAL CHIROPRACTOR Emailed the pt.'s cwujvinq-ay-dzz Estefany information on Agencies to hire an Aide in the home and information on [facility] Agency on Aging & Disabilities for PASSPORT. 12/10/24 9:31 AM - 9:34 AM ANIMAL CHIROPRACTOR called the pt.'s vnnfnoik-mw-ink Estefany back and asked her if the pt. was and if her was a [employer]. Estefany stated that the pt. was swidowed and her was a [employer] and served during wartime. ANIMAL CHIROPRACTOR educated the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 and none on file. Estefany states, but she signs for herself anyhow. SN questioned this due to history of dementia BACKGROUND: Discharged/Referral from SNF on 12/04/24 following treatment for anemia, pt was treated at [facility] for GIB, norovirus on 11/11. pt denies any vomiting/diarrhea at present. Pertinent referral information or other diagnoses that may affect plan of care: dementia, HTN, DM ASSESSMENT: SN greeted at door by caregiver. Upon entrance patient found in chair Patient appears in no acute distress. Patient lives at home with her son Francisco and Daughter in law Estefany. pt lives on one level. Home environment: dirty and cluttered. SOC booklet reviewed & completed with patient and caregiver and consent obtained for Home Care services. Patient/CG concerns verbalized today: none Vitals (see flow sheet for details): stable SN findings today: SN set up visit with Estefany yesterday and asked to have pt's ID, health insurance card, pill bottles, and d/c paperwork from SNF present at visit. Estefany verbalized understanding. On arrival to home, Estefany (CG) unable to find any of the items SN requested. Estefany states, 'I put them all in a folder right here. CG made several phone calls and took >20min to get back to SN. CG states, oh they are in my 's work van, he took everything to the drs office ([facility]) yesterday, so they could review her meds and all that and tell us what she is supposed to take, everything got changed around. SN verified pt by name and birthdate. During visit, CG had flight of idea, erratic behavior, CG answered phone calls and was in and out of room frequently. pt is alert to self, and pleasant in general converstation, but is unable to answer medical related questions. pt denies c/o pain at time of visit. pt ambulates with wheeled walker, CG states, she leans forward getting up, she fell 2x this year and had to go to the ER 2x. SN taught pt and CG falls safety. CG not receptive to education, frequently interrerupts SN. pt is incontinent of bowel and bladder. SN taught CG incontinence care. CG states, we take her to drs appts, I help her with bathing, and meals. CG requested help with meals, 'I would like to get her lunches, the correction said they were sending a new hospital bed and BSC for her, but I don't know how we get those. SN recommended INDUSTRIAL GAS SERVICER referral. CG agreed. CG fed pt while SN was present, and pt wearing clean clothes. SN noted wound to sacrum on referral orders, no open areas noted on assessment. SN attempted to review meds in home. CG initially stated pill bottles were in her 's truck, then stated that he left the meds at the drs office yesterday, but we have some pill packs from the correction. SN reviewed pill packs in home and added those to med list, but pill packs only contain 1 days worth of meds left. CG states, oh wait, I think I know who has her med list. CG made another phone call and received a text message with a very blurry photo, SN unable to verify this was pt's list or read it clearly. SN told CG there is no record of Dr. Krishnamurthy's office having meds, that SN could see, CG states ,oh he went when it was storming, so I bet that is why. CG states pt has f/u with Dr. Krishnamurthy on 12/09, to review her meds. SN did not see appt listed on pt's schedule. pt has continous BG monitor in place. CG states, we check it 3 x a day for her. CG checked BG for SN. CG states, I don't know what her sliding scale is, I just text Dr. Krishnamurthy and he tells me what to give her. SN sent in-basket message to Dr. Krishnamurthy to verify CG statements and obtain a correct med list for pt. SN spoke to NARCISA He regarding erratic CG behavior and INDUSTRIAL GAS SERVICER [place]. See intervention summary for education details and skills performed. Plan of care and visit frequency established with patient and caregiver and plan of care agreed upon. Patient demonstrated a need for further skilled SN services for chronic disease management & education and medication education. RECOMMENDATION: Visit Frequency: 1w4 Need for additional services: Patient agreeable to PT, OT and INDUSTRIAL GAS SERVICER referrals. Patient declined N/A referrals. Additional concerns to be followed up on: NONE Next visit to focus on (be specific): obtain med list from [facility]. make sure meds are in home and that CG know when to give meds. see if pt had f/u appt on 12/[address] Krishnamurthy, check for new orders. [facility] Work Phone: 12-04-2024 Telephone encounter Note PCP agreed to follow for HC services via secure [employer] chat. [facility] Work Phone: 12-04-2024 Miscellaneous Notes PCP agreed to follow for HC services via secure [employer] chat. Jonn Krishnamurthy, DO Please advise if you are agreeable to signing and following for [facility] services? Our Clinicians will be sending the Plan of Care to you for review and approval. They will reach out for any appropriate orders required to provide home care services for the patient. We are not able to initiate HHC services without a following provider. Home care clinicians may also obtain orders from [facility] Thank you and we would be happy to answer any questions. Kosta Chadwick LPN 12/02/2024 3:31 PM documented in this encounter [facility] 12-02-2024 Telephone encounter Note Jonn Krishnamurthy, DO Please advise if you are agreeable to signing and following for HHC services? Our Clinicians will be sending the Plan of Care to you for review and approval. They will reach out for any appropriate orders required to provide home care services for the patient. We are not able to initiate HHC services without a following provider. Home care clinicians may also obtain orders from [facility] Virtual[facility] Providers Thank you and we would be happy to answer any questions. Kosta Chadwick LPN 12/02/2024 3:31 PM [facility] 11-22-2024 Telephone encounter Note Why is she on eliquis? What dx? [facility] 11-22-2024 Miscellaneous Notes Why is she on eliquis? What dx? Alanis a nurse with [facility] called in and left a voicemail saying they are taking care of the patient and had a medical question. Said she is currently on Eliquis 5mg once daily. The provider there wants to make sure that is the accurate dose since not the typical dosage. Just confirming. Please advise. documented in this encounter [facility] 11-20-2024 Telephone encounter Note Alanis a nurse with [facility] called in and left a voicemail saying they are taking care of the patient and had a medical question. Said she is currently on Eliquis 5mg once daily. The provider there wants to make sure that is the accurate dose since not the typical dosage. Just confirming. Please advise. [facility] 11-19-2024 Note Formatting of this n ote might be different from the original. Care Management Progress Note Notified melecio Hopkins that pt is discharging to [facility] today. Verbalized understanding. Length of Stay (Days): 8 GMLOS: 2.5 [facility] 11-19-2024 Note Formatting of this n ote might be different from the original. Care Management Progress Note Notified melecio Hopkins that pt is discharging to [facility] today. Verbalized understanding. Length of Stay (Days): 8 GMLOS: 2.5 [facility] 11-19-2024 Note Care Management Prog ress Note Notified melecio Hopkins that pt is discharging to [facility] today. Verbalized understanding. Length of Stay (Days): 8 GMLOS: 2.5 [facility] 11-19-2024 Miscellaneous Notes Care Management Progress Note Notified melecio Hopkins that pt is discharging to [facility] today. Verbalized understanding. Length of Stay (Days): 8 GMLOS: 2.5 Patient Choice Patient Name: MARGARITA BETANCOURT Date of : 1940 Share Number: 0 Method of Sharing: electronic Date of Sharin2024-11-14 14:09:18.000 Responding Recipient: [email or web address] Ranked Providers Sent Referral Rank: 1 [facility]: [facility] [employer] [employer] Phone: [phone] Address: [id number] [place] [address] Rank: 4 Name: [facility] ([facility] Phone: [phone] Address: [address] [place] [phone] Rank: 3 Name: Fadia Leblanc - [employer] Member Phone: [phone] Address: [address] [place] [address] Rank: 2 Name: [facility] Phone: [phone] Address: [address] [place] [address] Rank: 5 Name: [facility] Phone: [phone] Address: [address] [place] [address] All Providers Sent Referral Name: [facility] [employer] Phone: [phone] Address: [id number] [place] [address] Name: [facility] ([facility]) Phone: [phone] Address: [address] [place] [address] Name: Fadia Leblanc - CPAN Member Phone: [phone] Address: [address] [place] [address] Name: [facility] Phone: [phone] Address: [address] [place] [address] Name: [facility] Phone: [phone] Address: [address] [place] [address] Discharge med list transmitted to [facility] via [facility] per TCC request. Care Management Progress Note DC order noted. [facility] tasked to send DC packet and MAR to [facility]. Length of Stay (Days): 8 GMLOS: 2.5 Problem: Knowledge Deficit Goal: Patient/family/caregiver demonstrates understanding of disease process, treatment plan, medications, and discharge instructions Outcome: Progressing Problem: Potential for Compromised Skin Integrity Goal: Skin Integrity is Maintained or Improved Outcome: Progressing Goal: Nutritional status is improving Outcome: Progressing Problem: Urinary Incontinence Goal: Perineal skin integrity is maintained or improved Outcome: Progressing Problem: Potential for Falls Goal: I will remain free of falls Outcome: Progressing Problem: Discharge Barriers Goal: My discharge needs are met Outcome: Progressing Problem: Knowledge Deficit Goal: Patient/family/caregiver demonstrates understanding of disease process, treatment plan, medications, and discharge instructions Outcome: Progressing Problem: Potential for Compromised Skin Integrity Goal: Skin Integrity is Maintained or Improved Outcome: Progressing Goal: Nutritional status is improving Outcome: Progressing Problem: Urinary Incontinence Goal: Perineal skin integrity is maintained or improved Outcome: Progressing Problem: Potential for Falls Goal: I will remain free of falls Outcome: Progressing Problem: Discharge Barriers Goal: My discharge needs are met Outcome: Progressing Care Management Progress Note Per facility they are unable to accept pt today frequent loose stools. Karen Tyler and RN updated on this and DC held till tomorrow. Transportation cancelled for today and placed on Will call. Called son Sandeep and updated him on this. Anticipate DC tomorrow. Length of Stay (Days): 7 GMLOS: 2.5 Discharge med list transmitted to [facility] via [facility] per TCC request. 7000 was entered into [employer] for the SNF- previously completed. Facility is aware Care Management Progress Note Jayesh Mills claimed pickup for 3:30pm to take to [facility]. Spoke with melecio Hopkins to notify him that pt was being discharged today to [facility] and also notified that there could be a copay for transport. Verbalized understanding. Length of Stay (Days): 7 GMLOS: 2.9 Care Management Progress Note LINER REPLACER tasked to send DC packet and MAR to [facility]. Length of Stay (Days): 7 GMLOS: 2.9 Problem: Knowledge Deficit Goal: Patient/family/caregiver demonstrates understanding of disease process, treatment plan, medications, and discharge instructions Outcome: Progressing Problem: Potential for Compromised Skin Integrity Goal: Skin Integrity is Maintained or Improved Outcome: Progressing Goal: Nutritional status is improving Outcome: Progressing Problem: Urinary Incontinence Goal: Perineal skin integrity is maintained or improved Outcome: Progressing Problem: Potential for Falls Goal: I will remain free of falls Outcome: Progressing Problem: Discharge Barriers Goal: My discharge needs are met Outcome: Progressing 7000 was entered into [employer] [facility] for the SNF- [facility] PER TCC REQUEST/ FACILITY IS AWARE Care Management Progress Note LINER REPLACER tasked to complete 7000 for [facility] Length of Stay (Days): 7 GMLOS: 2.9 Problem: Knowledge Deficit Goal: Patient/family/caregiver demonstrates understanding of disease process, treatment plan, medications, and discharge instructions Outcome: Progressing Problem: Potential for Compromised Skin Integrity Goal: Nutritional status is improving Outcome: Progressing Problem: Potential for Falls Goal: I will remain free of falls Outcome: Progressing Problem: Knowledge Deficit Goal: Patient/family/caregiver demonstrates understanding of disease process, treatment plan, medications, and discharge instructions 11/16/2024 0613 by Kayley English RN Outcome: Progressing 11/16/2024 0508 by Kayley English RN Outcome: Progressing 11/16/2024 0508 by Kayley English RN Outcome: Progressing Problem: Potential for Compromised Skin Integrity Goal: Skin Integrity is Maintained or Improved 11/16/2024 0613 by Kayley English RN Outcome: Progressing 11/16/2024 0508 by Kayley English RN Outcome: Progressing 11/16/2024 0508 by Kayley English RN Outcome: Progressing Goal: Nutritional status is improving 11/16/2024 06 by Kayley English RN Outcome: Progressing 11/16/2024 0508 by Kayley English RN Outcome: Progressing 11/16/2024 0508 by Kayley English RN Outcome: Progressing Problem: Urinary Incontinence Goal: Perineal skin integrity is maintained or improved 11/16/2024 06 by Kayley English RN Outcome: Progressing 11/16/2024 0508 by Kayley English RN Outcome: Progressing 11/16/2024 0508 by Kayley English RN Outcome: Progressing Problem: Potential for Falls Goal: I will remain free of falls 11/16/2024 06 by Kayley English RN Outcome: Progressing 11/16/2024 050 by Kayley English RN Outcome: Progressing 11/16/2024 0508 by Kayley English RN Outcome: Progressing Problem: Discharge Barriers Goal: My discharge needs are met 11/16/2024 06 by Kayley English RN Outcome: Progressing 11/16/2024 0508 by Kayley English RN Outcome: Progressing 11/16/2024 050 by Kayley English RN Outcome: Progressing Problem: Knowledge Deficit Goal: Patient/family/caregiver demonstrates understanding of disease process, treatment plan, medications, and discharge instructions 11/16/2024 050 by Kayley English RN Outcome: Progressing 11/16/2024 0508 by Kayley English RN Outcome: Progressing Problem: Potential for Compromised Skin Integrity Goal: Skin Integrity is Maintained or Improved 11/16/2024 050 by Kayley English RN Outcome: Progressing 11/16/2024 050 by Kayley English RN Outcome: Progressing Goal: Nutritional status is improving 11/16/2024 050 by Kayley English RN Outcome: Progressing 11/16/2024 050 by Kayley English RN Outcome: Progressing Problem: Urinary Incontinence Goal: Perineal skin integrity is maintained or improved 11/16/2024507 by Kayley English RN Outcome: Progressing 11/16/2024507 by Kayley English RN Outcome: Progressing Problem: Potential for Falls Goal: I will remain free of falls 11/16/2024507 by Kayley English RN Outcome: Progressing 11/16/2024507 by Kayley English RN Outcome: Progressing Problem: Discharge Barriers Goal: My discharge needs are met 11/16/2024507 by Kayley English RN Outcome: Progressing 11/16/2024507 by Kayley English RN Outcome: Progressing Problem: Knowledge Deficit Goal: Patient/family/caregiver demonstrates understanding of disease process, treatment plan, medications, and discharge instructions Outcome: Progressing Problem: Potential for Compromised Skin Integrity Goal: Skin Integrity is Maintained or Improved Outcome: Progressing Goal: Nutritional status is improving Outcome: Progressing Problem: Urinary Incontinence Goal: Perineal skin integrity is maintained or improved Outcome: Progressing Problem: Potential for Falls Goal: I will remain free of falls Outcome: Progressing Problem: Discharge Barriers Goal: My discharge needs are met Outcome: Progressing Care Management Progress Note Spoke with son [facility]eep [facility] and [facility]. Bed will not be available till Monday. updated and made aware. Length of Stay (Days): 4 GMLOS: 2.9 [facility]. Await review and response regarding ability to accept. TCC notified. Care Management Progress Note Checked Lawrence and son made choices from SNF list that was emailed to him yesterday: 1) [facility], 2) [facility], 3) [facility] 4) [facility] and 5) [facility]. LINER REPLACER tasked to make new SNF referrals. Awaiting acceptance. Will not need precert auth as pt is a traditional Medicare Will continue to follow. Length of Stay (Days): 4 GMLOS: 2.9 Problem: Knowledge Deficit Goal: Patient/family/caregiver demonstrates understanding of disease process, treatment plan, medications, and discharge instructions 11/15/2024522 by Kayley English RN Outcome: Progressing 11/15/2024445 by Kayley English RN Outcome: Progressing Problem: Potential for Compromised Skin Integrity Goal: Skin Integrity is Maintained or Improved 11/15/2024522 by Kayley English RN Outcome: Progressing 11/15/2024445 by Kayley English RN Outcome: Progressing Goal: Nutritional status is improving 11/15/2024522 by Kayley English RN Outcome: Progressing 11/15/2024445 by Kayley English RN Outcome: Progressing Problem: Urinary Incontinence Goal: Perineal skin integrity is maintained or improved 11/15/2024522 by Kayley English RN Outcome: Progressing 11/15/2024445 by Kayley English RN Outcome: Progressing Problem: Potential for Falls Goal: I will remain free of falls 11/15/2024522 by Kayley English RN Outcome: Progressing 11/15/2024445 by Kayley Gichui, RN Outcome: Progressing Problem: Discharge Barriers Goal: My discharge needs are met 11/15/2024 0523 by Kayley English RN Outcome: Progressing 11/15/2024 0446 by Kayley English RN Outcome: Progressing Problem: Knowledge Deficit Goal: Patient/family/caregiver demonstrates understanding of disease process, treatment plan, medications, and discharge instructions Outcome: Progressing Problem: Potential for Compromised Skin Integrity Goal: Skin Integrity is Maintained or Improved Outcome: Progressing Goal: Nutritional status is improving Outcome: Progressing Problem: Urinary Incontinence Goal: Perineal skin integrity is maintained or improved Outcome: Progressing Problem: Potential for Falls Goal: I will remain free of falls Outcome: Progressing Problem: Discharge Barriers Goal: My discharge needs are met Outcome: Progressing Care Management Progress Note Called and spoke with pt's moncho Hopkins @ [phone] to discuss therapy recs and DC planning. Son states pt was using walker to get around at home and was fairly independent. He states he provides transportation for pt. Updated son that therapy [place]. SNF choice list emailed to email address he provided [email or web address] Awaiting decision and choices. Pt is a Traditional medicare and will not need precert auth. Length of Stay (Days): 3 GMLOS: 2.9 Problem: Knowledge Deficit Goal: Patient/family/caregiver demonstrates understanding of disease process, treatment plan, medications, and discharge instructions 11/14/2024 0452 by Kayley English RN Outcome: Progressing 11/14/2024 0450 by Kayley English RN Outcome: Progressing Problem: Potential for Compromised Skin Integrity Goal: Skin Integrity is Maintained or Improved 11/14/2024 0452 by Kayley English RN Outcome: Progressing 11/14/2024 0450 by Kayley English RN Outcome: Progressing Goal: Nutritional status is improving 11/14/2024451 by Kayley English RN Outcome: Progressing 11/14/2024 045 by Kayley English RN Outcome: Progressing Problem: Urinary Incontinence Goal: Perineal skin integrity is maintained or improved 11/14/2024 0452 by Kayley English RN Outcome: Progressing 11/14/2024 045 by Kayley English RN Outcome: Progressing Problem: Potential for Falls Goal: I will remain free of falls 11/14/2024 045 by Kayley English RN Outcome: Progressing 11/14/2024449 by Kayley English RN Outcome: Progressing Problem: Discharge Barriers Goal: My discharge needs are met 11/14/2024451 by Kayley English RN Outcome: Progressing 11/14/2024449 by Kayley English RN Outcome: Progressing Problem: Knowledge Deficit Goal: Patient/family/caregiver demonstrates understanding of disease process, treatment plan, medications, and discharge instructions Outcome: Progressing Problem: Potential for Compromised Skin Integrity Goal: Skin Integrity is Maintained or Improved Outcome: Progressing Goal: Nutritional status is improving Outcome: Progressing Problem: Urinary Incontinence Goal: Perineal skin integrity is maintained or improved Outcome: Progressing Problem: Potential for Falls Goal: I will remain free of falls Outcome: Progressing Problem: Discharge Barriers Goal: My discharge needs are met Outcome: Progressing Problem: Knowledge Deficit Goal: Patient/family/caregiver demonstrates understanding of disease process, treatment plan, medications, and discharge instructions Outcome: Progressing Problem: Potential for Compromised Skin Integrity Goal: Skin Integrity is Maintained or Improved Outcome: Progressing Goal: Nutritional status is improving Outcome: Progressing Problem: Urinary Incontinence Goal: Perineal skin integrity is maintained or improved Outcome: Progressing Problem: Potential for Falls Goal: I will remain free of falls Outcome: Progressing Problem: Discharge Barriers Goal: My discharge needs are met Outcome: Progressing Care Management Progress Note Spoke with pt at bedside, introduced self and explained role. Pt alert to self . A little forgetful. Pt state she stays with son and daughter in law, Told this TCC that she wears home O2. Tried to call Estefany DIL @[phone]. Not able to reach. HIPAA compliant VM left to call back to discuss DC planning. PT/OT recommending SNF at DC. Awaiting family to call back to discuss DC planning. Length of Stay (Days): 2 GMLOS: No GMLOS Documented Problem: Knowledge Deficit Goal: Patient/family/caregiver demonstrates understanding of disease process, treatment plan, medications, and discharge instructions Outcome: Progressing Problem: Potential for Compromised Skin Integrity Goal: Skin Integrity is Maintained or Improved Outcome: Progressing Goal: Nutritional status is improving Outcome: Progressing Problem: Urinary Incontinence Goal: Perineal skin integrity is maintained or improved Outcome: Progressing Problem: Potential for Falls Goal: I will remain free of falls Outcome: Progressing Problem: Discharge Barriers Goal: My discharge needs are met Outcome: Progressing Cyber Crime Investigator following case for Discharge Needs. CARE PROGRESSION NOTE Attempted to reach gautam Allison to clarify home meds, left message asking for return call. Most recent list of medications from PCP reviewed with [facility] pharmacist. Stated some medications have not been picked up . Updated Dr. Haywood that medication list has not been confirmed with family. Per nurse Kahn, gautam Allison will be coming to hospital this afternoon. Thank you for allowing me to participate in the medical care of your patient. GALLO INTERVENTIONS [x] Care Coordination & Progression [x] Nursing Function [] Orders Placed [] Symptom Assessment [] Patient Experience [] Patient / Caregiver Conversation Problem: Knowledge Deficit Goal: Patient/family/caregiver demonstrates understanding of disease process, treatment plan, medications, and discharge instructions 11/12/2024730 by Stacey Winters RN Outcome: Not Progressing 11/12/2024140 by Stacey Winters RN Outcome: Not Progressing Problem: Potential for Compromised Skin Integrity Goal: Skin Integrity is Maintained or Improved 11/12/2024730 by Stacey Winters RN Outcome: Not Progressing 11/12/2024140 by Stacey Winters RN Outcome: Not Progressing Goal: Nutritional status is improving 11/12/2024730 by Stacey Winters RN Outcome: Not Progressing 11/12/2024140 by Stacey Winters RN Outcome: Not Progressing Problem: Urinary Incontinence Goal: Perineal skin integrity is maintained or improved 11/12/2024730 by Stacey Winters RN Outcome: Not Progressing 11/12/2024140 by Stacey Winters RN Outcome: Not Progressing Problem: Potential for Falls Goal: I will remain free of falls 11/12/2024730 by Stacey Winters RN Outcome: Not Progressing 11/12/2024140 by Stacey Winters RN Outcome: Not Progressing Problem: Discharge Barriers Goal: My discharge needs are met 11/12/2024730 by Stacey Winters RN Outcome: Not Progressing 11/12/2024140 by Stacey Winters RN Outcome: Not Progressing Problem: Knowledge Deficit Goal: Patient/family/caregiver demonstrates understanding of disease process, treatment plan, medications, and discharge instructions Outcome: Not Progressing Problem: Potential for Compromised Skin Integrity Goal: Skin Integrity is Maintained or Improved Outcome: Not Progressing Goal: Nutritional status is improving Outcome: Not Progressing Problem: Urinary Incontinence Goal: Perineal skin integrity is maintained or improved Outcome: Not Progressing Problem: Potential for Falls Goal: I will remain free of falls Outcome: Not Progressing Problem: Discharge Barriers Goal: My discharge needs are met Outcome: Not Progressing documented in this encounter [facility] 11-19-2024 Note Formatting of this n ote might be different from the original. Patient Choice Patient Name: MARGARITA BETANCOURT Date of : 1940 Share Number: 0 Method of Sharing: electronic Date of Sharin2024-11-14 14:09:18.000 Responding Recipient: [email or web address] Ranked Providers Sent Referral Rank: 1 Name: [employer] Phone: [phone] Address: [id number] [place] [address] Rank: 4 Name: [facility] ([facility]) Phone: [phone] Address: [address] [place] [phone] Rank: 3 Name: [facility] Phone: [phone] Address: [address] [place] [address] Rank: 2 Name: [facility] Phone: [phone] Address: [address] [place] [address] Rank: 5 Name: [facility] Phone: [phone] Address: [address] [place] [address] All Providers Sent Referral Name: [email or web address] Phone: [phone] Address: [address] [place] [address] Name: [facility] ([facility]) Phone: [phone] Address: [address] [place] [address] Name: Fadia Leblanc - CPAN Member Phone: [phone] Address: [address] [place] [address] Name: [facility] Phone: [phone] Address: [address] [place] [address] Name: [facility] Phone: [phone] Address: [address] [place] [address] [facility] 11-19-2024 Note Formatting of this n ote might be different from the original. Patient Choice Patient Name: MARGARITA BETANCOURT Date of : 1940 Share Number: 0 Method of Sharing: electronic Date of Sharin2024-11-14 14:09:18.000 Responding Recipient: [email or web address] Ranked Providers Sent Referral Rank: 1 Name: [employer] Phone: [phone] Address: [address] [place] [address] Rank: 4 Name: [facility] ([facility]) Phone: [phone] Address: [address] [place] [phone] Rank: 3 Name: Fadia Leblanc - CPAN Member Phone: [phone] Address: [address] [place] [address] Rank: 2 Name: [facility] Phone: [phone] Address: [address] [place] [address] Rank: 5 Name: [facility] Phone: [phone] Address: [address] [place] [address] All Providers Sent Referral Name: [facility] [facility] Phone: [phone] Address: [address] [place] [address] Name: [facility] ([facility]) Phone: [phone] Address: [address] [place] [address] Name: Fadia Leblanc - CPAN Member Phone: [phone] Address: [address] [place] [id number] Name: [facility] Phone: [phone] Address: [address] [place] [address] Name: [facility] Phone: [phone] Address: [address] [place] [address] [facility] 11-19-2024 Note Formatting of this n ote might be different from the original. Discharge med list transmitted to [facility] via [facility] per TCC request. T [facility] 11-19-2024 Note Formatting of this n ote might be different from the original. Discharge med list transmitted to [facility] via [facility] per TCC request. [facility] 11-19-2024 Note Formatting of this n ote might be different from the original. Care Management Progress Note DC order noted. LINER REPLACER tasked to send DC packet and MAR to [facility]. Length of Stay (Days): 8 GMLOS: 2.5 T [facility] 11-19-2024 Note Formatting of this n ote might be different from the original. Care Management Progress Note DC order noted. LINER REPLACER tasked to send DC packet and MAR to [facility]. Length of Stay (Days): 8 GMLOS: 2.5 [facility] 11-19-2024 Note Care Management Prog ress Note DC order noted. LINER REPLACER tasked to send DC packet and MAR to [facility]. Length of Stay (Days): 8 GMLOS: 2.5 [facility] 11-19-2024 Plan of care note Problem: Knowledge Deficit Goal: Patient/family/caregiver demonstrates understanding of disease process, treatment plan, medications, and discharge instructions Outcome: Progressing Problem: Potential for Compromised Skin Integrity Goal: Skin Integrity is Maintained or Improved Outcome: Progressing Goal: Nutritional status is improving Outcome: Progressing Problem: Urinary Incontinence Goal: Perineal skin integrity is maintained or improved Outcome: Progressing Problem: Potential for Falls Goal: I will remain free of falls Outcome: Progressing Problem: Discharge Barriers Goal: My discharge needs are met Outcome: Progressing [facility] 11-19-2024 Note Hospitalist Progress Note 11/19/2024 Subjective: Admit Date: 11/11/2024 PCP: JONN KRISHNAMURTHY DO Room#: B2-248/B2-248 B BRIEF HOSPITAL COURSE: Admitted for nausea, vomiting, and diarrhea. Stool PCR positive for juan carlos virus Interval History: Seen and examined. Eating fine without any nausea, vomiting or abdominal pain. BM - still loose, but around 2/day. 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 Hypertension LABS: CBC: Recent Labs 11/17/24 0323 11/18/24 0044 11/19/24 0236 WBC 12.8* 11.8* 8.1 RBC 4.24 4.28 4.30 HGB 10.2* 10.1* 10.3* HCT 32.6* 33.3* 33.4* MCV 76.9* 77.8 77.7 RDW 19.9* 19.9* 19.5* PLT 202 236 222 BMP: Recent Labs 11/17/24 0323 11/18/24 0044 11/19/24 0235 NA 138 141 139 K 4.0 4.3 4.3 CL 108* 110* 105 CO2 22* 24 27 BUN 30* 31* 27* CREATININE 1.18* 1.27* 0.97 GLUCOSE 72* 49* 78* CALCIUM 8.1* 8.3* 8.4* ANIONGAP 8 7 7 LIVER PROFILE: Recent Labs 11/17/24 0323 11/18/24 0044 11/19/24 0235 AST 27 31 46* ALT 17 22 36* BILITOT 0.2 0.2 0.3 ALKPHOS 66 67 70 PROT 5.2* 5.4* 5.4* PT/INR: No results for input(s): PROTIME, INR in the last 72 hours. CARDIAC ENZYMES: No results for input(s): TROPONINI in the last 72 hours. Procalcitonin: No results found for: PROCAL COVID-19 PCR: No results for input(s): COVID19 in the last 72 hours. Objective: Vitals: BP (!) 167/85 Pulse 86 Temp 37.4 ?C (99.4 ?F) (Temporal) Resp 16 Ht 5' 1 (1.549 m) Wt 163 lb (73.9 kg) SpO2 94% BMI 30.80 kg/m? Pulse Ox: SpO2 Av % Min: 91 % Max: 97 % Supplemental O2: O2 Flow Rate (L/min): 2 L/min Physical Exam Constitutional: Appearance: Normal appearance. Cardiovascular: Rate and Rhythm: Normal rate and regular rhythm. Heart sounds: Normal heart sounds. Pulmonary: Effort: Pulmonary effort is normal. Breath sounds: Normal breath sounds. Abdominal: General: Bowel sounds are normal. Palpations: Abdomen is soft. Musculoskeletal: Right lower leg: No edema. Left lower leg: No edema. Neurological: General: No focal deficit present. Mental Status: She is alert and oriented to person, place, and time. Medications: Scheduled PRN apixaban, 5 mg, Oral, Daily gabapentin, 200 mg, Oral, BID insulin glargine, 18 Units, SubCUTAneous, Nightly insulin lispro, 0-12 Units, SubCUTAneous, TID WC And insulin lispro, 0-12 Units, SubCUTAneous, Nightly Insulin Lispro, 14 Units, SubCUTAneous, TID WC lisinopril, 20 mg, Oral, Daily metoprolol succinate XL, 50 mg, Oral, Daily mirtazapine, 45 mg, Oral, Nightly pantoprazole, 40 mg, Oral, qAM AC Or pantoprazole (ProtoNix) 40 mg in sodium chloride (PF) 0.9 % 10 mL injection, 40 mg, IntraVENous, qAM AC PRN medications: acetaminophen OR acetaminophen, dextrose, dextrose, glucagon (rDNA), glucose, hydrALAZINE, ipratropium-albuterol, ondansetron ODT OR ondansetron, polyethylene glycol (PEG) 3350 Continuous Assessment Data: (CAT1) Reviewed 1 notes from different specialty or health system (each=1). (LOW: 2x CAT1 or independent historian MOD: 3x CAT1 or 1x CAT3 EXTENSIVE: 3x CAT1 and 1x CAT3) Acute, acute on chronic, unstable/uncontrolled chronic problems/diagnoses: Acute juan carlos virus gastroenteritis. HARINDER- improved. Leucocytosis - improved. AMS with underlying dementia - improved. H/o DVT HTN DM type 2 Stable chronic problems affecting care, new non-acute diagnoses: Plan As a result of the above findings & factors, the following mgmt was pursued: - improved oral intake - BM less frequent - DC to SNF today - am labs, replace lytes prn - PT/OT/CM/SW - delirium precautions: increase activity - DVT prophylaxis: encourage ambulation and already anticoagulated Advance Directive: DNR-CCA Anticipated Discharge Extended Emergency Contact Information Primary Emergency Contact: Estefany Betancourt Relation: Other Secondary Emergency Contact: Sandeep Betancourt Relation: Child Wang MD [place] Division of Hospitalist Medicine [facility] 11-19-2024 History of Present illness Narrative Hospitalist Progress Note 11/19/2024 Subjective: Admit Date: 11/11/2024 PCP: JONN KRISHNAMURTHY DO Room#: B2-779/B2-886 B BRIEF HOSPITAL COURSE: Admitted for nausea, vomiting, and diarrhea. Stool PCR positive for juan carlos virus Interval History: Seen and examined. Eating fine without any nausea, vomiting or abdominal pain. BM - still loose, but around 2/day. 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 Hypertension LABS: CBC: Recent Labs 11/17/2432211/18/24 0044 11/19/24 0236 WBC 12.8* 11.8* 8.1 RBC 4.24 4.28 4.30 HGB 10.2* 10.1* 10.3* HCT 32.6* 33.3* 33.4* MCV 76.9* 77.8 77.7 RDW 19.9* 19.9* 19.5* PLT 202 236 222 BMP: Recent Labs 11/17/2432211/18/24 0044 11/19/24 0235 NA 138 141 139 K 4.0 4.3 4.3 CL 108* 110* 105 CO2 22* 24 27 BUN 30* 31* 27* CREATININE 1.18* 1.27* 0.97 GLUCOSE 72* 49* 78* CALCIUM 8.1* 8.3* 8.4* ANIONGAP 8 7 7 LIVER PROFILE: Recent Labs 11/17/2432211/18/24 0044 11/19/24 0235 AST 27 31 46* ALT 17 22 36* BILITOT 0.2 0.2 0.3 ALKPHOS 66 67 70 PROT 5.2* 5.4* 5.4* PT/INR: No results for input(s): PROTIME, INR in the last 72 hours. CARDIAC ENZYMES: No results for input(s): TROPONINI in the last 72 hours. Procalcitonin: No results found for: PROCAL COVID-19 PCR: No results for input(s): COVID19 in the last 72 hours. Objective: Vitals: BP (!) 167/85 Pulse 86 Temp 37.4 C (99.4 F) (Temporal) Resp 16 Ht 5' 1 (1.549 m) Wt 163 lb (73.9 kg) SpO2 94% BMI 30.80 kg/m Pulse Ox: SpO2 Av % Min: 91 % Max: 97 % Supplemental O2: O2 Flow Rate (L/min): 2 L/min Physical Exam Constitutional: Appearance: Normal appearance. Cardiovascular: Rate and Rhythm: Normal rate and regular rhythm. Heart sounds: Normal heart sounds. Pulmonary: Effort: Pulmonary effort is normal. Breath sounds: Normal breath sounds. Abdominal: General: Bowel sounds are normal. Palpations: Abdomen is soft. Musculoskeletal: Right lower leg: No edema. Left lower leg: No edema. Neurological: General: No focal deficit present. Mental Status: She is alert and oriented to person, place, and time. Medications: Scheduled PRN apixaban, 5 mg, Oral, Daily gabapentin, 200 mg, Oral, BID insulin glargine, 18 Units, SubCUTAneous, Nightly insulin lispro, 0-12 Units, SubCUTAneous, TID WC And insulin lispro, 0-12 Units, SubCUTAneous, Nightly Insulin Lispro, 14 Units, SubCUTAneous, TID WC lisinopril, 20 mg, Oral, Daily metoprolol succinate XL, 50 mg, Oral, Daily mirtazapine, 45 mg, Oral, Nightly pantoprazole, 40 mg, Oral, qAM AC Or pantoprazole (ProtoNix) 40 mg in sodium chloride (PF) 0.9 % 10 mL injection, 40 mg, IntraVENous, qAM AC PRN medications: acetaminophen OR acetaminophen, dextrose, dextrose, glucagon (rDNA), glucose, hydrALAZINE, ipratropium-albuterol, ondansetron ODT OR ondansetron, polyethylene glycol (PEG) 3350 Continuous Assessment Data: (CAT1) Reviewed 1 notes from different specialty or health system (each=1). (LOW: 2x CAT1 or independent historian MOD: 3x CAT1 or 1x CAT3 EXTENSIVE: 3x CAT1 and 1x CAT3) Acute, acute on chronic, unstable/uncontrolled chronic problems/diagnoses: Acute juan carlos virus gastroenteritis. HARINDER- improved. Leucocytosis - improved. AMS with underlying dementia - improved. H/o DVT HTN DM type 2 Stable chronic problems affecting care, new non-acute diagnoses: Plan As a result of the above findings & factors, the following mgmt was pursued: - improved oral intake - BM less frequent - DC to SNF today - am labs, replace lytes prn - PT/OT/CM/SW - delirium precautions: increase activity - DVT prophylaxis: encourage ambulation and already anticoagulated Advance Directive: DNR-CCA Anticipated Discharge Extended Emergency Contact Information Primary Emergency Contact: Estefany Betancourt Relation: Other Secondary Emergency Contact: Sandeep Betancourt Relation: Child Wang Ibarra MD Division of Hospitalist Medicine [facility] Images from the original note were not included. [id number]] Respiratory Therapy Home O2 Progress Note O2 saturation at rest on room air: 91% (If resting saturation was 88% or less, enter NA for the next two values) O2 saturation with exertion on room air: na% (NA if not evaluated) O2 saturation on O2 at na LPM with exertion: na% (NA if not evaluated) Patient meets criteria for home O2 Y/N = n Patient mobile at home Y/N = n DME Notified na Patient left on RA for approximately 15 mins without becoming hypoxic. Ambulation not performed @ this time due to patient capability Nutrition update completed. Chart reviewed. Patient continues as a level 1. Hospitalist Progress Note 11/18/2024 Subjective: Admit Date: 11/11/2024 PCP: JONN KRISHNAMURTHY DO Room#: B2-248/B2-248 B BRIEF HOSPITAL COURSE: Margarita Betancourt presented to the emergency department on November 11 with nausea, vomiting, and emesis. The emesis was described as coffee-ground in appearance. She also reported dark tarry stools, associated with increased dizziness, lightheadedness, and syncope. The patient has a past medical history significant for dementia, depression, diabetes, hypertension, and asthma. Upon admission, the patient was diagnosed with acute GI bleed, myasthenic chronic anemia, HARINDER mucositis, and dehydration. Initial labs showed elevated WBC at 11.4, creatinine at 1.47, and AC elevated at 35. Subsequent labs revealed a drop in creatinine to 1.32 and hemoglobin to 10.8 from 12.7 at arrival. Iron studies showed low iron at 20, low iron saturation at 8.5, and low iron binding capacity at 236. Urinalysis demonstrated hematuria and proteinuria without signs of infection.Imaging of head: Diminished cerebral volume and evidence of chronic microvascular ischemic changes Neurology consulted and believed altered mental status secondary to GI bleed, and Alzheimer's disease, and ensuring electrolyte managed to avoid future dehydration, Eliquis was restarted and family advised to monitor for bleed. She was found to be positive for Noro virus on 11/15. Interval History: Was originally supposed to be transferred to the facility - given continual diarrhea from her Noro - they have declined her transfer - she had two small loose movements today. 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 Hypertension LABS: CBC: Recent Labs 11/16/24 0507 11/17/24 0323 11/18/24 0044 WBC 14.6* 12.8* 11.8* RBC 4.47 4.24 4.28 HGB 10.8* 10.2* 10.1* HCT 34.3* 32.6* 33.3* MCV 76.7* 76.9* 77.8 RDW 19.9* 19.9* 19.9* PLT 160 202 236 BMP: Recent Labs 11/16/24 0507 11/17/24 0323 11/18/24 0044 NA 139 138 141 K 4.0 4.0 4.3 CL 108* 108* 110* CO2 24 22* 24 BUN 30* 30* 31* CREATININE 1.27* 1.18* 1.27* GLUCOSE 76* 72* 49* CALCIUM 8.1* 8.1* 8.3* ANIONGAP 7 8 7 LIVER PROFILE: Recent Labs 11/16/24 0507 11/17/24 0323 11/18/24 0044 AST 21 27 31 ALT 17 17 22 BILITOT 0.4 0.2 0.2 ALKPHOS 67 66 67 PROT 5.4* 5.2* 5.4* PT/INR: No results for input(s): PROTIME, INR in the last 72 hours. CARDIAC ENZYMES: No results for input(s): TROPONINI in the last 72 hours. Procalcitonin: No results found for: PROCAL COVID-19 PCR: No results for input(s): COVID19 in the last 72 hours. Objective: Vitals: BP (!) 165/93 Pulse 83 Temp 36.3 C (97.4 F) (Temporal) Resp 20 Ht 5' 1 (1.549 m) Wt 163 lb (73.9 kg) SpO2 91% BMI 30.80 kg/m Pulse Ox: SpO2 Av.5 % Min: 91 % Max: 98 % Supplemental O2: O2 Flow Rate (L/min): 3 L/min Physical Exam Physical Examination - General: Appears in no acute distress, moist mucus membranes, - Respiratory: Wearing nasal cannula, Clear lung sounds with slight crackles to bases - Cardiovascular: Heart rate regular with no abnormal murmur on exam. - Abdomen: Soft, some generalized tenderness. - Extremities: Swelling to bilateral legs, non-pitting. - Neuro: Good crystal mounter strength and lower extremity strength Medications: Scheduled PRN [START ON 11/19/2024] apixaban, 5 mg, Oral, Daily gabapentin, 200 mg, Oral, BID insulin glargine, 18 Units, SubCUTAneous, Nightly insulin lispro, 0-12 Units, SubCUTAneous, TID WC And insulin lispro, 0-12 Units, SubCUTAneous, Nightly Insulin Lispro, 14 Units, SubCUTAneous, TID WC lisinopril, 20 mg, Oral, Daily metoprolol succinate XL, 50 mg, Oral, Daily mirtazapine, 45 mg, Oral, Nightly pantoprazole, 40 mg, Oral, qAM AC Or pantoprazole (ProtoNix) 40 mg in sodium chloride (PF) 0.9 % 10 mL injection, 40 mg, IntraVENous, qAM AC PRN medications: acetaminophen OR acetaminophen, dextrose, dextrose, glucagon (rDNA), glucose, hydrALAZINE, ipratropium-albuterol, ondansetron ODT OR ondansetron, polyethylene glycol (PEG) 3350 Continuous Assessment Data: (CAT1) Reviewed 3 or more notes from different specialty or health system (each=1). (CAT1) Reviewed 3 or more labs/studies ordered by another provider not previously counted (each=1, panels count as 1). (CAT1) Ordered 3 or more new labs and/or studies (each=1, panels count as 1). (LOW: 2x CAT1 or independent historian MOD: 3x CAT1 or 1x CAT3 EXTENSIVE: 3x CAT1 and 1x CAT3) Acute, acute on chronic, unstable/uncontrolled chronic problems/diagnoses: Emesis and diarrhea - coffee ground emesis - Hgb stable - resolved. Found to have noro virus - GI consultations - may need EGD if returns - PPI daily, restart Eliquis on discharge, likely attributed to diarrhea from juan carlos virus Leukocytosis -secondary to above. Acute Kidney Injury - stable Patient presents with elevated creatinine, initially at 1.47 on admission. Repeat labs showed improvement with creatinine improving The HARINDER is likely due to dehydration associated with the GI bleed. Urinalysis revealed hematuria and proteinuria without signs of infection, which may be related to the underlying renal dysfunction. Altered Mental Status Patient exhibits altered mental status, which may be multifactorial given her history of dementia and the acute presentation of GI bleed. Head imaging shows diminished cerebral volume and evidence of chronic microvascular ischemic changes, which could contribute to her cognitive status. - Neurology consult requested for evaluation of altered mental status > no concern for stroke was expressed - neurology feels AMS related to GIB - Home medications that can contributed to AMS - Mirtazapine nightly, decreased gabapentin to 200 mg PO BID, History of Blood clot - HELD eliquis which was restarted Hypertension - Home lisinopril 20 mg PO daily - Metoprolol 50 mg PO daily Diabetes Mellitus with peripheral neuropathy > DM with hyperglycemia and hypoglycemia Poorly controlled or out of control diabetes Patient has a known history of diabetes. Current management includes a sliding scale insulin regimen. No acute issues related to diabetes were reported during this encounter. - Continue sliding scale insulin regimen - Monitor blood glucose levels - Decrease gabapentin dose to 200 mg PO BID Lower Extremity Edema Physical examination revealed bilateral leg swelling, with the right leg appearing slightly reddened and warm to touch - resolved,- Monitor bilateral leg swelling - monitor Plan As a result of the above findings & factors, the following mgmt was pursued: - 11/12- Medication list updated by pharmacy and confirmed by daughter at bedside. - 11/13- VS, labs reviewed - no further emesis or diarrhea - with blood - will continual to hold eliquis for one more day and discuss restarting in the next day or so. - 11/14- VS, labs reviewed - Hgb11 - stable at this time, continue to monitor with daily labs, obtain repeat occult stool, - 11/15- VS, labs reviewed - labs reviewed, slight bump of Creatinine on labs, hyponatremic, Urine antigens positive for S. Pneumonia - start ceftriaxone for 3 days, will continue to monitor, monitor for temperatures. - 11/16- VS, labs reviewed - has noro virus - will treat symptomatically - HARINDER improving, awaiting for placement early on Monday . - 11/17- Vs, labs and diarrhea has improved - -plan to go and be discharged tomorrow with a bed. - 11/18- Still had some diarrhea - correction refused until improved, discussed with family patient does take eliquis 5 mg PO daily, will continue at this time, they are aware this medications is normally taken BID. DISCHARGE cancelled - am labs, replace lytes prn - PT/OT/CM/SW - delirium precautions: increase activity and limit nighttime disturbances - DVT prophylaxis: encourage ambulation and hold eliquis at this time. Complexity: Chronic illness with severe exacerbation, progression, or side effect of tx (HIGH). Risk: Admission to hospital-level care was considered or occurred (HIGH). Advance Directive: DNR-CCA Anticipated Discharge - Date - 11/19 - Location - SNF - Pending the following - final evaluations and placement - discharge tomorrow Total time spent (which include face to face and non face to face encounters) : 31 minutes Toxic drug monitoring/narrow therapeutic index drug monitoring : # Drug name : insulin # Route administered : subq # Method of monitoring : monitor for hypo and hyperglycemia Extended Emergency Contact Information Primary Emergency Contact: Estefany Betancourt Relation: Other Secondary Emergency Contact: Sandeep Betancourt Relation: Child Joana Haywood MD Division of Hospitalist Medicine [facility] Images from the original note were not included. OCCUPATIONAL THERAPY [facility] Treatment Note Name/MRN: Margarita Betancourt ([id number]) Date of : 1940 Age: 84 y.o. Room/Bed: B2-248/[facility] B Visit #: 2 out of 5 visits Discharge Recommendation: [facility] Facility Assessment Pt performed bed mobility at MAXA. Sitting balance MODA. Pt is limited by balance, endurance, and strength. Pt is functioning below baseline and would benefit from skilled OT services to maximize safety and independence with ADLs and functional mobility. Rec SNF at discharge. Subjective Agreeable for OT this date. Per RN, geovanni for tx Pain: Pt denies any current pain. Medical Precautions: Enhanced Contact Proper PPE donned/doffed in accordance with facility standards. Fall Risk: [place] Fall Risk Score: 100 (High Risk) Precautions/Restrictions: N/A Family/Caregiver Present: none Objective Bed Mobility Supine to sit: Max Assist Sit to supine: Max Assist Pt performed bed mobility at MAXA for supine to EOB with limited participation this date requiring max cuing for initiation and continuation this date. Denied dizziness this date but pt going in and out of sleep throughout. Sternal rubs to wake back up. Return to supine at MAXA for controled descent and positioning. Transfers/Mobility Sitting balance: Max Assist Sitting balance MAXA for balance with retro and L lateral lean this date with pt presenting with increased fatigue. Not appropriate to trial standing or OOB tasks at this time d/t pt unable to stay awake. Vitals checked WNL. Device(s) used: Used therapist for support Cognition - Safety judgement: decreased awareness of need for assistance and decreased awareness of need for safety - Problem solving: assistance required to implement solutions, assistance required to identify errors made, assistance required to correct errors made, and decreased awareness of errors - Insights: decreased awareness of deficits - Initiation: requires cues for some - Sequencing: requires cues for some Plan Continue acute OT per plan of care. Safety/Education Safety Safety Devices in place: All fall risk precautions in place, call light within reach, left in bed, and patient at risk for falls Restraints: No Education Education Given To: patient Education Provided: OT Role, Plan of Care, Transfer Training, Fall Prevention Education, and Benefits of Increasing Activity Education Method: Verbal and Teach Back Barriers to Learning: Cognition Education Outcome: Continued Education Needed AM-PAC AM-PAC Inpatient Daily Activity Raw Score: 18 ADL Inpatient CMS G-Code Modifier: CK Goals Patient Stated Goal: none stated Encounter Problems Encounter Problems (Active) Balance Patient will maintain dynamic standing balance for 3 minutes with supervision in order to demonstrate decreased risk of falling. (Not Addressed) Start: 11/13/24 Expected End: 11/18/24 Dressings Lower Extremities Patient will complete LB ADLs with Mod I (Not Addressed) Start: 11/13/24 Expected End: 11/18/24 Mobility pt will perform functional mobility and transfers with LRAD and supervision (Not Addressed) Start: 11/13/24 Expected End: 11/18/24 Toileting Patient will complete toileting tasks at standard toilet with modified independence. (Not Addressed) Start: 11/13/24 Expected End: 11/18/24 Transfers Patient will perform bed mobility with modified independence in order to improve independence and prepare for out of bed mobility. (Slowly Progressing) Start: 11/13/24 Expected End: 11/18/24 Therapy Time Individual Co-treatment Time In 1115 Time Out 1128 Minutes 13 Timed Code Treatment Minutes: 13 Minutes (1 TA) MILTON Howe Cosigned by John Galeano OT at 11/17/2024 1:54 PM EDT [place] [place] Note 11/17/2024 Subjective: Admit Date: 11/11/2024 PCP: JONN KRISHNAMURTHY DO Room#: B2-248/B2-248 B BRIEF HOSPITAL COURSE: Margarita Betancourt presented to the emergency department on November 11 with nausea, vomiting, and emesis. The emesis was described as coffee-ground in appearance. She also reported dark tarry stools, associated with increased dizziness, lightheadedness, and syncope. The patient has a past medical history significant for dementia, depression, diabetes, hypertension, and asthma. Upon admission, the patient was diagnosed with acute GI bleed, myasthenic chronic anemia, HARINDER mucositis, and dehydration. Initial labs showed elevated WBC at 11.4, creatinine at 1.47, and AC elevated at 35. Subsequent labs revealed a drop in creatinine to 1.32 and hemoglobin to 10.8 from 12.7 at arrival. Iron studies showed low iron at 20, low iron saturation at 8.5, and low iron binding capacity at 236. Urinalysis demonstrated hematuria and proteinuria without signs of infection.Imaging of head: Diminished cerebral volume and evidence of chronic microvascular ischemic changes Neurology consulted and believed altered mental status secondary to GI bleed, and Alzheimer's disease, and ensuring electrolyte managed. Interval History: Feels in good spirits today - no pain or discomfort - diarrhea has resolved. Waiting for placement tomorrow. No headache or discomfort. No abdomen pain . 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 Hypertension LABS: CBC: Recent Labs 11/15/2442711/16/24 0507 11/17/24 0323 WBC 16.8* 14.6* 12.8* RBC 4.61 4.47 4.24 HGB 11.0* 10.8* 10.2* HCT 35.1 34.3* 32.6* MCV 76.1* 76.7* 76.9* RDW 20.0* 19.9* 19.9* PLT 170 160 202 BMP: Recent Labs 11/15/2442711/16/24 0507 11/17/24 0323 NA 134* 139 138 K 3.7 4.0 4.0 CL 104 108* 108* CO2 21* 24 22* BUN 27* 30* 30* CREATININE 1.23* 1.27* 1.18* GLUCOSE 83 76* 72* CALCIUM 8.0* 8.1* 8.1* ANIONGAP 9 7 8 LIVER PROFILE: Recent Labs 11/15/24 0428 11/16/24 0507 11/17/24 0323 AST 27 21 27 ALT 15 17 17 BILITOT 0.4 0.4 0.2 ALKPHOS 63 67 66 PROT 5.6* 5.4* 5.2* PT/INR: No results for input(s): PROTIME, INR in the last 72 hours. CARDIAC ENZYMES: No results for input(s): TROPONINI in the last 72 hours. Procalcitonin: No results found for: PROCAL COVID-19 PCR: No results for input(s): COVID19 in the last 72 hours. Objective: Vitals: BP 135/63 (BP Location: Right arm, Patient Position: Sitting) Pulse 80 Temp 36.7 C (98 F) (Temporal) Resp 18 Ht 5' 1 (1.549 m) Wt 163 lb (73.9 kg) SpO2 98% BMI 30.80 kg/m Pulse Ox: SpO2 Av % Min: 95 % Max: 98 % Supplemental O2: O2 Flow Rate (L/min): 4 L/min Physical Exam Physical Examination - General: Appears in no acute distress, - Respiratory: Wearing nasal cannula, Clear lung sounds with slight crackles to bases - Cardiovascular: Heart rate regular with no abnormal murmur on exam. - Abdomen: Soft, some generalized tenderness. - Extremities: Swelling to bilateral legs, non-pitting. - Neuro: Good crystal mounter strength and lower extremity strength, Medications: Scheduled PRN cefTRIAXone, 1,000 mg, IntraVENous, q24h gabapentin, 200 mg, Oral, BID insulin glargine, 18 Units, SubCUTAneous, Nightly insulin lispro, 0-12 Units, SubCUTAneous, TID WC And insulin lispro, 0-12 Units, SubCUTAneous, Nightly Insulin Lispro, 14 Units, SubCUTAneous, TID WC lisinopril, 20 mg, Oral, Daily metoprolol succinate XL, 50 mg, Oral, Daily mirtazapine, 45 mg, Oral, Nightly pantoprazole, 40 mg, Oral, qAM AC Or pantoprazole (ProtoNix) 40 mg in sodium chloride (PF) 0.9 % 10 mL injection, 40 mg, IntraVENous, qAM AC PRN medications: acetaminophen OR acetaminophen, dextrose, dextrose, glucagon (rDNA), glucose, hydrALAZINE, ipratropium-albuterol, ondansetron ODT OR ondansetron, polyethylene glycol (PEG) 3350 Continuous Assessment Data: (CAT1) Reviewed 3 or more notes from different specialty or health system (each=1). (CAT1) Reviewed 3 or more labs/studies ordered by another provider not previously counted (each=1, panels count as 1). (CAT1) Ordered 3 or more new labs and/or studies (each=1, panels count as 1). (LOW: 2x CAT1 or independent historian MOD: 3x CAT1 or 1x CAT3 EXTENSIVE: 3x CAT1 and 1x CAT3) Acute, acute on chronic, unstable/uncontrolled chronic problems/diagnoses: Emesis and diarrhea - coffee ground emesis - Hgb stable - resolved. Found to have noro virus - GI consultations - may need EGD if returns - PPI daily, HOLD eliquis, - Daily labs - monitor for repeat bleeding, may need EGD in future. - Symptomatic treatment of Noro virus - diarrhea has resolved. Leukocytosis -secondary to above. Acute Kidney Injury - stable Patient presents with elevated creatinine, initially at 1.47 on admission. Repeat labs showed improvement with creatinine improving The HARINDER is likely due to dehydration associated with the GI bleed. Urinalysis revealed hematuria and proteinuria without signs of infection, which may be related to the underlying renal dysfunction. - Continue monitoring of renal function with serial creatinine measurements - Maintain adequate hydration - Adjust medications as needed based on renal function Altered Mental Status Patient exhibits altered mental status, which may be multifactorial given her history of dementia and the acute presentation of GI bleed. Head imaging shows diminished cerebral volume and evidence of chronic microvascular ischemic changes, which could contribute to her cognitive status. The patient's responses during the examination were limited, requiring increased encouragement to wake up. - Neurology consult requested for evaluation of altered mental status > no concern for stroke was expressed - Continue monitoring cognitive status and level of consciousness - Head imaging results to be reviewed with neurology - neurology feels AMS related to GIB - Home medications that can contributed to AMS - Mirtazapine nightly, decreased gabapentin to 200 mg PO BID, History of Blood clot - Hold Eliquis until no further signs of bleeding. Hypertension - Home lisinopril 20 mg PO daily - Metoprolol 50 mg PO daily Diabetes Mellitus with peripheral neuropathy Patient has a known history of diabetes. Current management includes a sliding scale insulin regimen. No acute issues related to diabetes were reported during this encounter. - Continue sliding scale insulin regimen - Monitor blood glucose levels - Decrease gabapentin dose to 200 mg PO BID Lower Extremity Edema Physical examination revealed bilateral leg swelling, with the right leg appearing slightly reddened and warm to touch - resolved,- Monitor bilateral leg swelling - monitor Respiratory Issues Patient is noted to be wearing a nasal cannula and has decreased air entry to lung bases bilaterally. The patient has a history of asthma, which may be contributing to her current respiratory status. Coughing was observed during the examination. - Continue oxygen therapy via nasal cannula - Monitor oxygen saturation and respiratory rate - Assess for any worsening of respiratory symptoms - Consider pulmonary function tests or chest imaging if symptoms persist or Plan As a result of the above findings & factors, the following mgmt was pursued: - 11/12- Medication list updated by pharmacy and confirmed by daughter at bedside. - 11/13- VS, labs reviewed - no further emesis or diarrhea - with blood - will continual to hold eliquis for one more day and discuss restarting in the next day or so. - 11/14- VS, labs reviewed - Hgb11 - stable at this time, continue to monitor with daily labs, obtain repeat occult stool, - 11/15- VS, labs reviewed - labs reviewed, slight bump of Creatinine on labs, hyponatremic, Urine antigens positive for S. Pneumonia - start ceftriaxone for 3 days, will continue to monitor, monitor for temperatures. - 11/16- VS, labs reviewed - has noro virus - will treat symptomatically - HARINDER improving, awaiting for placement early on Monday . - 11/17- Vs, labs and diarrhea has improved - -plan to go and be discharged tomorrow with a bed. - am labs, replace lytes prn - PT/OT/CM/SW - delirium precautions: increase activity and limit nighttime disturbances - DVT prophylaxis: encourage ambulation and hold eliquis at this time. Complexity: Chronic illness with severe exacerbation, progression, or side effect of tx (HIGH). Risk: Admission to hospital-level care was considered or occurred (HIGH). Advance Directive: Full Code Anticipated Discharge - Date - 11/18 - Location - SNF - Pending the following - final evaluations and placement - discharge tomorrow Total time spent (which include face to face and non face to face encounters) : 31 minutes Toxic drug monitoring/narrow therapeutic index drug monitoring : # Drug name : insulin # Route administered : subq # Method of monitoring : monitor for hypo and hyperglycemia Extended Emergency Contact Information Primary Emergency Contact: Estefany Betancourt Relation: Other Secondary Emergency Contact: Sandeep Betancourt Relation: Child Joana Haywood MD Division of Hospitalist Medicine [facility] Images from the original note were not included. PHYSICAL THERAPY [facility] Treatment Note Name/MRN: Margarita Betancourt ([id number]) Date of : 1940 Age: 84 y.o. Room[facility]Bed: [facility] Visit #: 1 out of 8 visits Discharge Recommendation: [facility] Facility Equipment Needed: No Prior Level of Function Prior Level of ADL Function: Independent Prior Level of Mobility: Independent; Device: None Prior Level of Transfers: Independent Assessment Pt making some progress toward some PT goals this session. Pt continues to demo limitations in functional mobility, weakness, fatigue, instability, and requires cueing for sequencing and functional mobility. Pt is max A for bed mobility, min-mod A for sitting balance EOB 10 mins, unable to attempt transfers. Pt is unsafe to return home and remains at a high risk for falls. Pt would continue to benefit from skilled PT intervention to address limitations and improve return to PLOF. SNF remains appropriate. Subjective Patient requires encouragement but agreeable to therapy session this date. Per RN, pt is ok to see. Pt has a BM mid session and requires extended time and encouragement to participate in rolling for bed mobility. Pt perseverates on can I have a coffee and asks ~10x during session, while nursing staff obtains coffee. Pain: 0-10 pain scale: 8/10 Location: abdomen, RN made aware Medical Precautions: Enhanced Contact Proper PPE donned/doffed in accordance with facility standards. Fall Risk: [place] Fall Risk Score: 85 (High Risk) Precautions/Restrictions: N/A Overall Cognitive Status: Exceptions - Following commands: follows one step commands with increased time and follows one step commands with repetition - Attention span: difficulty attending to directions - Memory: decreased recall of biographical information, decreased recall of precautions, decreased recall of recent events, and decreased short term memory - Safety judgement: decreased awareness of need for assistance - Problem solving: assistance required to generate solutions, assistance required to implement solutions, assistance required to identify errors made, assistance required to correct errors made, and decreased awareness of errors - Initiation: requires cues for some - Sequencing: requires cues for some Overall Orientation Status: Oriented to Person, Disoriented to Situation, Disoriented to Time, and Disoriented to Place Family/Caregiver Present: none Objective Bed Mobility Supine to sit: Max Assist Sit to supine: Max Assist Rolling to right: Max Assist Rolling to left: Max Assist Scooting: Max Assist HOB elevated, use of bed rails, with increased time and effort required, compensations from UEs to complete bed mobility. Max A for trunk and BLE mgmt out and in. Denies dizziness. For rolling for dependent pericare, pt requires max A to initiate and complete rolling to each side and mod A to maintain roll. Max A for scooting to EOB, Max Ax2 to HOB. Unable to assist with bridging technique. Due to poor sitting balance, unsafe to attempt transfers. Balance During Session: Posture: fair Sitting - Static: Min Assist, Mod Assist Sitting - Dynamic: Mod Assist Demos R posterior trunk lean and frequent LOB. Able to maintain balance with BUE support for 5-10 sec if placed but again requires assist to correct or maintain. During LE ex's, requires mod A to maintain. Maintains for 10 mins at EOB with max encouragement. Exercises Exercises Hip Flexion: seated marches 1x10 B Knee Long Arc Quad: 1x10 B Ankle Pumps: 1x10 B Hip abduction into PT resistance: 1x10 B Hip adduction into pillow: 1x10 B Pt educated on therapeutic exercise to improve LE strength while in seated with maximum encouragement required to complete full sets. Pt demos limited AROM. Plan Continue acute PT per plan of care. Safety/Education Safety Safety Devices in place: All fall risk precautions in place, call light within reach, left in bed, gait belt, patient at risk for falls, nurse notified, and no alarms engaged upon entry Restraints: No Education Education Given To: patient Education Provided: PT Role, PT Goals, Plan of Care, Home Exercise Program, Precautions, Energy Conservation, Fall Prevention Education, Discharge Recommendations, and Benefits of Increasing Activity Education Method: Verbal and Demonstration Barriers to Learning: Cognition Education Outcome: Continued Education Needed Outcome Measures AM-PAC AM-PAC Inpatient Mobility Raw Score (No Stairs) : 9 JH-HLM JH-HLM Score: Static standing (1 or more minutes) Goals Patient Stated Goal: to go home as soon as possible Encounter Problems Encounter Problems (Active) Balance Patient will maintain dynamic standing balance for 8 minutes with CGA in order to demonstrate decreased risk of falling. (Progressing) Start: 11/13/24 Expected End: 11/23/24 Patient will maintain dynamic sitting balance for 8 minutes with supervision in order to demonstrate improved postural control and prepare for out of bed mobility. (Progressing) Start: 11/13/24 Expected End: 11/23/24 Exercise Patient will complete lower extremity exercises for 1-2 sets / 10-15 reps in order to improve strength and activity tolerance for mobility. (Progressing) Start: 11/13/24 Expected End: 11/23/24 Mobility Patient will ambulate 10 feet with CGA and rolling walker in order to improve safety and independence with mobility. (Not Addressed) Start: 11/13/24 Expected End: 11/23/24 Transfers Patient will perform bed mobility with CGA in order to improve independence and prepare for out of bed mobility. (Progressing) Start: 11/13/24 Expected End: 11/23/24 Patient will complete sit to stand transfer with CGA to wheeled walker in order to improve safety and prepare for out of bed mobility. (Progressing) Start: 11/13/24 Expected End: 11/23/24 Therapy Time Individual Co-treatment Time In 1411 Time Out 1447 Minutes 36 Timed Code Treatment Minutes: 32 Minutes (THANIA, JEY) Araseli Bynum [place] [place] 11/16/2024 Subjective: Admit Date: 11/11/2024 PCP: JONN KRISHNAMURTHY DO Room#: B2-248/B2-248 B BRIEF HOSPITAL COURSE: Margarita Betancourt presented to the emergency department on November 11 with nausea, vomiting, and emesis. The emesis was described as coffee-ground in appearance. She also reported dark tarry stools, associated with increased dizziness, lightheadedness, and syncope. The patient has a past medical history significant for dementia, depression, diabetes, hypertension, and asthma. Upon admission, the patient was diagnosed with acute GI bleed, myasthenic chronic anemia, HARINDER mucositis, and dehydration. Initial labs showed elevated WBC at 11.4, creatinine at 1.47, and AC elevated at 35. Subsequent labs revealed a drop in creatinine to 1.32 and hemoglobin to 10.8 from 12.7 at arrival. Iron studies showed low iron at 20, low iron saturation at 8.5, and low iron binding capacity at 236. Urinalysis demonstrated hematuria and proteinuria without signs of infection.Imaging of head: Diminished cerebral volume and evidence of chronic microvascular ischemic changes Neurology consulted and believed altered mental status secondary to GI bleed, and Alzheimer's disease, and ensuring electrolyte managed. Interval History: Feels weak and generally achy today - denies any emesis but feels nauseated - aware that she has juan carlos virus and we are unable to give her anything for her diarrhea. She should be better in several days. Encouraged her to sit at bedside today. 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 Hypertension LABS: CBC: Recent Labs 11/14/2444411/15/248 11/16/24 0507 WBC 8.6 16.8* 14.6* RBC 4.63 4.61 4.47 HGB 11.0* 11.0* 10.8* HCT 35.8 35.1 34.3* MCV 77.3 76.1* 76.7* RDW 19.9* 20.0* 19.9* PLT 151 170 160 BMP: Recent Labs 11/14/2444411/15/24 0428 11/16/24 0507 NA 135* 134* 139 K 4.0 3.7 4.0 CL 102 104 108* CO2 24 21* 24 BUN 22 27* 30* CREATININE 1.08 1.23* 1.27* GLUCOSE 221* 83 76* CALCIUM 7.8* 8.0* 8.1* ANIONGAP 9 9 7 LIVER PROFILE: Recent Labs 11/14/24 0445 11/15/24 0428 11/16/24 0507 AST 32 27 21 ALT 20 15 17 BILITOT 0.3 0.4 0.4 ALKPHOS 68 63 67 PROT 5.6* 5.6* 5.4* PT/INR: No results for input(s): PROTIME, INR in the last 72 hours. CARDIAC ENZYMES: No results for input(s): TROPONINI in the last 72 hours. Procalcitonin: No results found for: PROCAL COVID-19 PCR: No results for input(s): COVID19 in the last 72 hours. Objective: Vitals: BP 153/64 Pulse 73 Temp 37.2 C (98.9 F) (Temporal) Resp 16 Ht 5' 1 (1.549 m) Wt 163 lb (73.9 kg) SpO2 96% BMI 30.80 kg/m Pulse Ox: SpO2 Av.7 % Min: 96 % Max: 97 % Supplemental O2: O2 Flow Rate (L/min): 4 L/min Physical Exam Physical Examination - General: Orientated to self, eating breakfast, looks generally unwell and il. - Respiratory: Wearing nasal cannula, Clear lung sounds with slight crackles to bases - Cardiovascular: Heart rate regular with no abnormal murmur on exam. - Abdomen: Soft, some generalized tenderness. - Extremities: Swelling to bilateral legs, non-pitting. - Neuro: Good crystal mounter strength and lower extremity strength, Medications: Scheduled PRN cefTRIAXone, 1,000 mg, IntraVENous, q24h gabapentin, 200 mg, Oral, BID insulin glargine, 18 Units, SubCUTAneous, Nightly insulin lispro, 0-12 Units, SubCUTAneous, TID WC And insulin lispro, 0-12 Units, SubCUTAneous, Nightly Insulin Lispro, 14 Units, SubCUTAneous, TID WC lisinopril, 20 mg, Oral, Daily metoprolol succinate XL, 50 mg, Oral, Daily mirtazapine, 45 mg, Oral, Nightly pantoprazole, 40 mg, Oral, qAM AC Or pantoprazole (ProtoNix) 40 mg in sodium chloride (PF) 0.9 % 10 mL injection, 40 mg, IntraVENous, qAM AC PRN medications: acetaminophen OR acetaminophen, dextrose, dextrose, glucagon (rDNA), glucose, hydrALAZINE, ipratropium-albuterol, ondansetron ODT OR ondansetron, polyethylene glycol (PEG) 3350 Continuous Assessment Data: (CAT1) Reviewed 3 or more notes from different specialty or health system (each=1). (CAT1) Reviewed 3 or more labs/studies ordered by another provider not previously counted (each=1, panels count as 1). (CAT1) Ordered 3 or more new labs and/or studies (each=1, panels count as 1). (LOW: 2x CAT1 or independent historian MOD: 3x CAT1 or 1x CAT3 EXTENSIVE: 3x CAT1 and 1x CAT3) Acute, acute on chronic, unstable/uncontrolled chronic problems/diagnoses: Emesis and diarrhea - coffee ground emesis - Hgb stable - resolved. Found to have noro virus - GI consultations - may need EGD if returns - PPI daily, HOLD eliquis, - Daily labs - monitor for repeat bleeding, may need EGD in future. - Symptomatic treatment of Noro virus Leukocytosis -secondary to above. Acute Kidney Injury - stable Patient presents with elevated creatinine, initially at 1.47 on admission. Repeat labs showed improvement with creatinine improving The HARINDER is likely due to dehydration associated with the GI bleed. Urinalysis revealed hematuria and proteinuria without signs of infection, which may be related to the underlying renal dysfunction. - Continue monitoring of renal function with serial creatinine measurements - Maintain adequate hydration - Adjust medications as needed based on renal function Altered Mental Status Patient exhibits altered mental status, which may be multifactorial given her history of dementia and the acute presentation of GI bleed. Head imaging shows diminished cerebral volume and evidence of chronic microvascular ischemic changes, which could contribute to her cognitive status. The patient's responses during the examination were limited, requiring increased encouragement to wake up. - Neurology consult requested for evaluation of altered mental status > no concern for stroke was expressed - Continue monitoring cognitive status and level of consciousness - Head imaging results to be reviewed with neurology - neurology feels AMS related to GIB - Home medications that can contributed to AMS - Mirtazapine nightly, decreased gabapentin to 200 mg PO BID, History of Blood clot - Hold Eliquis until no further signs of bleeding. Hypertension - Home lisinopril 20 mg PO daily - Metoprolol 50 mg PO daily Diabetes Mellitus with peripheral neuropathy Patient has a known history of diabetes. Current management includes a sliding scale insulin regimen. No acute issues related to diabetes were reported during this encounter. - Continue sliding scale insulin regimen - Monitor blood glucose levels - Decrease gabapentin dose to 200 mg PO BID Lower Extremity Edema Physical examination revealed bilateral leg swelling, with the right leg appearing slightly reddened and warm to touch - resolved,- Monitor bilateral leg swelling - monitor Respiratory Issues Patient is noted to be wearing a nasal cannula and has decreased air entry to lung bases bilaterally. The patient has a history of asthma, which may be contributing to her current respiratory status. Coughing was observed during the examination. - Continue oxygen therapy via nasal cannula - Monitor oxygen saturation and respiratory rate - Assess for any worsening of respiratory symptoms - Consider pulmonary function tests or chest imaging if symptoms persist or Plan As a result of the above findings & factors, the following mgmt was pursued: - 11/12- Medication list updated by pharmacy and confirmed by daughter at bedside. - 11/13- VS, labs reviewed - no further emesis or diarrhea - with blood - will continual to hold eliquis for one more day and discuss restarting in the next day or so. - 11/14- VS, labs reviewed - Hgb11 - stable at this time, continue to monitor with daily labs, obtain repeat occult stool, - 11/15- VS, labs reviewed - labs reviewed, slight bump of Creatinine on labs, hyponatremic, Urine antigens positive for S. Pneumonia - start ceftriaxone for 3 days, will continue to monitor, monitor for temperatures. - 11/16- VS, labs reviewed - has noro virus - will treat symptomatically - HARINDER improving, awaiting for placement early on Monday . - am labs, replace lytes prn - PT/OT/CM/SW - delirium precautions: increase activity and limit nighttime disturbances - DVT prophylaxis: encourage ambulation and hold eliquis at this time. Complexity: Chronic illness with severe exacerbation, progression, or side effect of tx (HIGH). Risk: Admission to hospital-level care was considered or occurred (HIGH). Advance Directive: Full Code Anticipated Discharge - Date - 11/16 - Location - SNF - Pending the following - final evaluations and placement Total time spent (which include face to face and non face to face encounters) : 41 minutes Toxic drug monitoring/narrow therapeutic index drug monitoring : # Drug name : insulin # Route administered : subq # Method of monitoring : monitor for hypo and hyperglycemia Extended Emergency Contact Information Primary Emergency Contact: Estefany Betancourt Relation: Other Secondary Emergency Contact: Sandeep Betancourt Relation: Child Joana Haywood MD Division of Hospitalist Medicine [facility] Images from the original note were not included. OCCUPATIONAL THERAPY [facility] Treatment Note Name/MRN: Margarita Betancourt ([id number]) Date of : 1940 Age: 84 y.o. Room[facility]Bed: [facility] Visit #: 1 out of 5 visits Discharge Recommendation: [facility] Facility Assessment Pt tolerated session poor, severely limited by fatigue this date. Pt completed bed mobility with Max A, tolerated sitting EOB for ~5-7 mins with Min-Mod A before returning to supine. Pt required total A to complete bed level pericare. Pt is progressing with POC but is still below baseline and is a high fall risk. Pt would benefit from continued OT to improve activity tolerance, balance, and strength needed for improved occupational performance. Pt is recommended for SNF at D/C Subjective Pt supine in bed, pleasant and agreeable. Per RN, pt okay to see Pt goes by Pallavi Pain: Pt denies any current pain. Medical Precautions: No active isolations Proper PPE donned/doffed in accordance with facility standards. Fall Risk: [place] Fall Risk Score: 25 (High Risk) Precautions/Restrictions: N/A Family/Caregiver Present: none Objective ADLs Toileting: Dependent Pt incontinent BM during bed mobility. Pt required total A to complete supine/side lying pericare. Pt rolled L<>R to ease completion of ADL Bed Mobility Supine to sit: Max Assist Sit to supine: Max Assist Rolling to right: Mod Assist Rolling to left: Max Assist Scooting: Max Assist HOB Elevated Use of bed rail(s) Pt completed supine to/from sit with HOB elevated, use of bed rails, and Max A for BLE and trunk management. Pt required increased time and assist to complete. Pt required Max A to scoot to EOB and to roll L and Mod A to roll to the R. Pt denied dizziness. Transfers/Mobility Sit to stand: unable to attempt. Pt required Min-Mod A for sitting balance for ~5-7 mins before requesting to lay down due to fatigue Sitting balance: Min Assist, Mod Assist Pt sat EOB for ~5-7 mins with varying Min-Mod A for sitting balance. Pt demo heavy retrolean, unable to correct without physical assist despite VC Device(s) used: None Cognition - Safety judgement: decreased awareness of need for assistance and decreased awareness of need for safety - Problem solving: assistance required to implement solutions, assistance required to identify errors made, assistance required to correct errors made, and decreased awareness of errors - Insights: decreased awareness of deficits - Initiation: requires cues for some - Sequencing: requires cues for some Exceptions, repeatedly saying I need to lay down when laying in bed. Plan Continue acute OT per plan of care. Safety/Education Safety Safety Devices in place: All fall risk precautions in place, call light within reach, left in bed, patient at risk for falls, nurse notified, and no alarms engaged upon entry Restraints: No Education Education Given To: patient Education Provided: OT Role, Plan of Care, Precautions, ADL Adaptive Strategies, Fall Prevention Education, and Discharge Recommendations Education Method: Verbal, Demonstration, and Teach Back Barriers to Learning: Cognition Education Outcome: Verbalized Understanding, Demonstrated Understanding, and Continued Education Needed AM-PAC AM-PAC Inpatient Daily Activity Raw Score: 18 ADL Inpatient CMS G-Code Modifier: CK Goals Patient Stated Goal: none stated Encounter Problems Encounter Problems (Active) Balance Patient will maintain dynamic standing balance for 3 minutes with supervision in order to demonstrate decreased risk of falling. (Not Addressed) Start: 11/13/24 Expected End: 11/18/24 Dressings Lower Extremities Patient will complete LB ADLs with Mod I (Not Addressed) Start: 11/13/24 Expected End: 11/18/24 Mobility pt will perform functional mobility and transfers with LRAD and supervision (Not Addressed) Start: 11/13/24 Expected End: 11/18/24 Toileting Patient will complete toileting tasks at standard toilet with modified independence. (Slowly Progressing) Start: 11/13/24 Expected End: 11/18/24 Transfers Patient will perform bed mobility with modified independence in order to improve independence and prepare for out of bed mobility. (Slowly Progressing) Start: 11/13/24 Expected End: 11/18/24 Therapy Time Individual Co-treatment Time In 1359 Time Out 1418 Minutes 19 Timed Code Treatment Minutes: 19 Minutes (1 ther act) EMILY Selby Cosigned by Angela Sunshine OT at 11/15/2024 3:41 PM EDT [place] [place] 11/15/2024 Subjective: Admit Date: 11/11/2024 PCP: JONN KRISHNAMURTHY DO Room#: B2-248/B2-248 B BRIEF HOSPITAL COURSE: Margarita Betancourt presented to the emergency department on November 11 with nausea, vomiting, and emesis. The emesis was described as coffee-ground in appearance. She also reported dark tarry stools, associated with increased dizziness, lightheadedness, and syncope. The patient has a past medical history significant for dementia, depression, diabetes, hypertension, and asthma. Upon admission, the patient was diagnosed with acute GI bleed, myasthenic chronic anemia, HARINDER mucositis, and dehydration. Initial labs showed elevated WBC at 11.4, creatinine at 1.47, and AC elevated at 35. Subsequent labs revealed a drop in creatinine to 1.32 and hemoglobin to 10.8 from 12.7 at arrival. Iron studies showed low iron at 20, low iron saturation at 8.5, and low iron binding capacity at 236. Urinalysis demonstrated hematuria and proteinuria without signs of infection.Imaging of head: Diminished cerebral volume and evidence of chronic microvascular ischemic changes Neurology consulted and believed altered mental status secondary to GI bleed, and Alzheimer's disease, and ensuring electrolyte managed. Interval History: In good spirits sitting up in the bed, denies any pain or discomfort. Has a good appetite. No fever or chills, no further cough. . Case and plan discussed with patient and bedside nurse. All questions answered. 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 Hypertension LABS: CBC: Recent Labs 11/13/24 0141 11/14/2444411/15/24427 WBC 6.9 8.6 16.8* RBC 4.39 4.63 4.61 HGB 10.4* 11.0* 11.0* HCT 34.4* 35.8 35.1 MCV 78.4 77.3 76.1* RDW 20.1* 19.9* 20.0* PLT 154 151 170 BMP: Recent Labs 11/13/24 00511/14/2444411/15/24427 NA 137 135* 134* K 3.6 4.0 3.7 CL 108* 102 104 CO2 21* 24 21* BUN 25* 22 27* CREATININE 1.02 1.08 1.23* GLUCOSE 140* 221* 83 CALCIUM 7.7* 7.8* 8.0* ANIONGAP 8 9 9 LIVER PROFILE: Recent Labs 11/13/245811/14/2444411/15/24427 AST 24 32 27 ALT 14 20 15 BILITOT 0.2 0.3 0.4 ALKPHOS 65 68 63 PROT 5.3* 5.6* 5.6* PT/INR: No results for input(s): PROTIME, INR in the last 72 hours. CARDIAC ENZYMES: No results for input(s): TROPONINI in the last 72 hours. Procalcitonin: No results found for: PROCAL COVID-19 PCR: No results for input(s): COVID19 in the last 72 hours. Objective: Vitals: BP 142/67 (BP Location: Right arm, Patient Position: Lying) Pulse 82 Temp 37.8 C (100.1 F) (Temporal) Resp 20 Ht 5' 1 (1.549 m) Wt 163 lb (73.9 kg) SpO2 96% BMI 30.80 kg/m Pulse Ox: SpO2 Av % Min: 96 % Max: 96 % Supplemental O2: O2 Flow Rate (L/min): 3 L/min Physical Exam Physical Examination - General: Orientated to self, eating breakfast, - Respiratory: Wearing nasal cannula, Clear lung sounds with slight crackles to bases - Cardiovascular: Heart rate regular with no abnormal murmur on exam. - Abdomen: Soft, non-tender. - Extremities: Swelling to bilateral legs, non-pitting. - Neuro: Good crystal mounter strength and lower extremity strength, Medications: Scheduled PRN gabapentin, 200 mg, Oral, BID insulin glargine, 18 Units, SubCUTAneous, Nightly insulin lispro, 0-12 Units, SubCUTAneous, TID WC And insulin lispro, 0-12 Units, SubCUTAneous, Nightly Insulin Lispro, 14 Units, SubCUTAneous, TID WC lisinopril, 20 mg, Oral, Daily metoprolol succinate XL, 50 mg, Oral, Daily mirtazapine, 45 mg, Oral, Nightly pantoprazole, 40 mg, Oral, qAM AC Or pantoprazole (ProtoNix) 40 mg in sodium chloride (PF) 0.9 % 10 mL injection, 40 mg, IntraVENous, qAM AC PRN medications: acetaminophen OR acetaminophen, dextrose, dextrose, glucagon (rDNA), glucose, hydrALAZINE, ipratropium-albuterol, ondansetron ODT OR ondansetron, polyethylene glycol (PEG) 3350 Continuous Assessment Data: (CAT1) Reviewed 3 or more notes from different specialty or health system (each=1). (CAT1) Reviewed 3 or more labs/studies ordered by another provider not previously counted (each=1, panels count as 1). (CAT1) Ordered 3 or more new labs and/or studies (each=1, panels count as 1). (LOW: 2x CAT1 or independent historian MOD: 3x CAT1 or 1x CAT3 EXTENSIVE: 3x CAT1 and 1x CAT3) Acute, acute on chronic, unstable/uncontrolled chronic problems/diagnoses: Emesis and diarrhea - coffee ground emesis - Hgb stable - resolved. - GI consultations - may need EGD if returns - PPI daily, HOLD eliquis, - Daily labs - monitor for repeat bleeding, may need EGD in future. Acute Kidney Injury - stable Patient presents with elevated creatinine, initially at 1.47 on admission. Repeat labs showed improvement with creatinine improving The HARINDER is likely due to dehydration associated with the GI bleed. Urinalysis revealed hematuria and proteinuria without signs of infection, which may be related to the underlying renal dysfunction. - Continue monitoring of renal function with serial creatinine measurements - Maintain adequate hydration - Adjust medications as needed based on renal function Altered Mental Status Patient exhibits altered mental status, which may be multifactorial given her history of dementia and the acute presentation of GI bleed. Head imaging shows diminished cerebral volume and evidence of chronic microvascular ischemic changes, which could contribute to her cognitive status. The patient's responses during the examination were limited, requiring increased encouragement to wake up. - Neurology consult requested for evaluation of altered mental status > no concern for stroke was expressed - Continue monitoring cognitive status and level of consciousness - Head imaging results to be reviewed with neurology - neurology feels AMS related to GIB - Home medications that can contributed to AMS - Mirtazapine nightly, decreased gabapentin to 200 mg PO BID, History of Blood clot - Hold Eliquis until no further signs of bleeding. Hypertension - Home lisinopril 20 mg PO daily - Metoprolol 50 mg PO daily Diabetes Mellitus with peripheral neuropathy Patient has a known history of diabetes. Current management includes a sliding scale insulin regimen. No acute issues related to diabetes were reported during this encounter. - Continue sliding scale insulin regimen - Monitor blood glucose levels - Decrease gabapentin dose to 200 mg PO BID Lower Extremity Edema Physical examination revealed bilateral leg swelling, with the right leg appearing slightly reddened and warm to touch - resolved,- Monitor bilateral leg swelling - monitor Respiratory Issues Patient is noted to be wearing a nasal cannula and has decreased air entry to lung bases bilaterally. The patient has a history of asthma, which may be contributing to her current respiratory status. Coughing was observed during the examination. - Continue oxygen therapy via nasal cannula - Monitor oxygen saturation and respiratory rate - Assess for any worsening of respiratory symptoms - Consider pulmonary function tests or chest imaging if symptoms persist or Plan As a result of the above findings & factors, the following mgmt was pursued: - 11/12- Medication list updated by pharmacy and confirmed by daughter at bedside. - 11/13- VS, labs reviewed - no further emesis or diarrhea - with blood - will continual to hold eliquis for one more day and discuss restarting in the next day or so. - 11/14- VS, labs reviewed - Hgb11 - stable at this time, continue to monitor with daily labs, obtain repeat occult stool, - 11/15- VS, labs reviewed - labs reviewed, slight bump of Creatinine on labs, hyponatremic, Urine antigens positive for S. Pneumonia - start ceftriaxone for 3 days, will continue to monitor, monitor for temperatures. - am labs, replace lytes prn - PT/OT/CM/SW - delirium precautions: increase activity and limit nighttime disturbances - DVT prophylaxis: encourage ambulation and hold eliquis at this time. Complexity: Chronic illness with severe exacerbation, progression, or side effect of tx (HIGH). Risk: Admission to hospital-level care was considered or occurred (HIGH). Advance Directive: Full Code Anticipated Discharge - Date - 11/16 - Location - SNF - Pending the following - final evaluations and placement Total time spent (which include face to face and non face to face encounters) : 41 minutes Toxic drug monitoring/narrow therapeutic index drug monitoring : # Drug name : insulin # Route administered : subq # Method of monitoring : monitor for hypo and hyperglycemia Extended Emergency Contact Information Primary Emergency Contact: Estefany Betancourt Relation: Other Secondary Emergency Contact: Sandeep Betancourt Relation: Child Joana Haywood MD Division of Hospitalist Medicine [facility] [place] [place] 11/14/2024 Subjective: Admit Date: 11/11/2024 PCP: JONN KRISHNAMURTHY DO Room#: B2-250/B2-250 B BRIEF HOSPITAL COURSE: Margarita Betancourt presented to the emergency department on November 11 with nausea, vomiting, and emesis. The emesis was described as coffee-ground in appearance. She also reported dark tarry stools, associated with increased dizziness, lightheadedness, and syncope. The patient has a past medical history significant for dementia, depression, diabetes, hypertension, and asthma. Upon admission, the patient was diagnosed with acute GI bleed, myasthenic chronic anemia, HARINDER mucositis, and dehydration. Initial labs showed elevated WBC at 11.4, creatinine at 1.47, and AC elevated at 35. Subsequent labs revealed a drop in creatinine to 1.32 and hemoglobin to 10.8 from 12.7 at arrival. Iron studies showed low iron at 20, low iron saturation at 8.5, and low iron binding capacity at 236. Urinalysis demonstrated hematuria and proteinuria without signs of infection.Imaging of head: Diminished cerebral volume and evidence of chronic microvascular ischemic changes Neurology consulted and believed altered mental status secondary to GI bleed, and Alzheimer's disease, and ensuring electrolyte managed. Interval History: Patient denied any blood movement on evaluation today, denies any pain anywhere with no weakness of numbness, no headache or dizziness. Denies any chest pain. She is complaing of having increased diaarhea. Discussed with staff how she was previous constipated and we did not want to give anything to slow it down as we just need to get everything out of her system. 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 Will continue to monitor . Case and plan discussed with patient and bedside nurse. All questions answered. 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 Hypertension LABS: CBC: Recent Labs 11/12/2451311/13/24 0141 11/14/24 0445 WBC 7.6 6.9 8.6 RBC 4.52 4.39 4.63 HGB 10.8* 10.4* 11.0* HCT 35.1 34.4* 35.8 MCV 77.7 78.4 77.3 RDW 20.4* 20.1* 19.9* PLT 171 154 151 BMP: Recent Labs 11/12/24 0514 11/13/24 0059 11/14/24 0445 NA 137 137 135* K 3.7 3.6 4.0 CL 107 108* 102 CO2 22* 21* 24 BUN 34* 25* 22 CREATININE 1.32* 1.02 1.08 GLUCOSE 190* 140* 221* CALCIUM 8.3* 7.7* 7.8* ANIONGAP 8 8 9 LIVER PROFILE: Recent Labs 11/11/24205711/13/24 0059 11/14/24 0445 AST 35* 24 32 ALT 17 14 20 BILITOT 0.4 0.2 0.3 ALKPHOS 82 65 68 PROT 7.0 5.3* 5.6* PT/INR: No results for input(s): PROTIME, INR in the last 72 hours. CARDIAC ENZYMES: No results for input(s): TROPONINI in the last 72 hours. Procalcitonin: No results found for: PROCAL COVID-19 PCR: No results for input(s): COVID19 in the last 72 hours. Objective: Vitals: BP 138/62 (BP Location: Left arm, Patient Position: Lying) Pulse 91 Temp 36.7 C (98.1 F) (Temporal) Resp 20 Ht 5' 1 (1.549 m) Wt 163 lb (73.9 kg) SpO2 94% BMI 30.80 kg/m Pulse Ox: SpO2 Av % Min: 94 % Max: 97 % Supplemental O2: O2 Flow Rate (L/min): 3 L/min Physical Exam Physical Examination - General: Sleeping, awake easily- disorientated - only orientated to self. - Respiratory: Wearing nasal cannula, Clear lung sounds with slight crackles to bases - Cardiovascular: Heart rate regular with no abnormal murmur on exam. - Abdomen: Soft, non-tender. - Extremities: Swelling to bilateral legs, non-pitting. - Neuro: Good crystal mounter strength and lower extremity strength, Medications: Scheduled PRN gabapentin, 200 mg, Oral, BID insulin glargine, 18 Units, SubCUTAneous, Nightly insulin lispro, 0-12 Units, SubCUTAneous, TID WC And insulin lispro, 0-12 Units, SubCUTAneous, Nightly Insulin Lispro, 14 Units, SubCUTAneous, TID WC lisinopril, 20 mg, Oral, Daily metoprolol succinate XL, 50 mg, Oral, Daily mirtazapine, 45 mg, Oral, Nightly pantoprazole, 40 mg, Oral, qAM AC Or pantoprazole (ProtoNix) 40 mg in sodium chloride (PF) 0.9 % 10 mL injection, 40 mg, IntraVENous, qAM AC PRN medications: acetaminophen OR acetaminophen, dextrose, dextrose, glucagon (rDNA), glucose, hydrALAZINE, ipratropium-albuterol, ondansetron ODT OR ondansetron, polyethylene glycol (PEG) 3350 Continuous Assessment Data: (CAT1) Reviewed 3 or more notes from different specialty or health system (each=1). (CAT1) Reviewed 3 or more labs/studies ordered by another provider not previously counted (each=1, panels count as 1). (CAT1) Ordered 3 or more new labs and/or studies (each=1, panels count as 1). (LOW: 2x CAT1 or independent historian MOD: 3x CAT1 or 1x CAT3 EXTENSIVE: 3x CAT1 and 1x CAT3) Acute, acute on chronic, unstable/uncontrolled chronic problems/diagnoses: Emesis and diarrhea - coffee ground emesis - Hgb stable - resolved. - Admit to floor - GI consultations. - PPI daily, HOLD eliquis, - Daily labs - monitor for repeat bleeding, may need EGD in future. Acute Kidney Injury - stable Patient presents with elevated creatinine, initially at 1.47 on admission. Repeat labs showed improvement with creatinine improving The HARINDER is likely due to dehydration associated with the GI bleed. Urinalysis revealed hematuria and proteinuria without signs of infection, which may be related to the underlying renal dysfunction. - Continue monitoring of renal function with serial creatinine measurements - Maintain adequate hydration - Adjust medications as needed based on renal function Altered Mental Status Patient exhibits altered mental status, which may be multifactorial given her history of dementia and the acute presentation of GI bleed. Head imaging shows diminished cerebral volume and evidence of chronic microvascular ischemic changes, which could contribute to her cognitive status. The patient's responses during the examination were limited, requiring increased encouragement to wake up. - Neurology consult requested for evaluation of altered mental status > no concern for stroke was expressed - Continue monitoring cognitive status and level of consciousness - Head imaging results to be reviewed with neurology - neurology feels AMS related to GIB - Home medications that can contributed to AMS - Mirtazapine nightly, decreased gabapentin to 200 mg PO BID, History of Blood clot - Hold Eliquis until no further signs of bleeding. Hypertension - Home lisinopril 20 mg PO daily - Metoprolol 50 mg PO daily Diabetes Mellitus with peripheral neuropathy Patient has a known history of diabetes. Current management includes a sliding scale insulin regimen. No acute issues related to diabetes were reported during this encounter. - Continue sliding scale insulin regimen - Monitor blood glucose levels - Decrease gabapentin dose to 200 mg PO BID Lower Extremity Edema Physical examination revealed bilateral leg swelling, with the right leg appearing slightly reddened and warm to touch - resolved,- Monitor bilateral leg swelling - monitor Respiratory Issues Patient is noted to be wearing a nasal cannula and has decreased air entry to lung bases bilaterally. The patient has a history of asthma, which may be contributing to her current respiratory status. Coughing was observed during the examination. - Continue oxygen therapy via nasal cannula - Monitor oxygen saturation and respiratory rate - Assess for any worsening of respiratory symptoms - Consider pulmonary function tests or chest imaging if symptoms persist or Plan As a result of the above findings & factors, the following mgmt was pursued: - 11/12- Medication list updated by pharmacy and confirmed by daughter at bedside. - 11/13- VS, labs reviewed - no further emesis or diarrhea - with blood - will continual to hold eliquis for one more day and discuss restarting in the next day or so. - 11/14- VS, labs reviewed - Hgb11 - stable at this time, continue to monitor with daily labs, obtain repeat occult stool, - am labs, replace lytes prn - PT/OT/CM/SW - delirium precautions: increase activity and limit nighttime disturbances - DVT prophylaxis: encourage ambulation and hold eliquis at this time. Complexity: Chronic illness with severe exacerbation, progression, or side effect of tx (HIGH). Risk: Admission to hospital-level care was considered or occurred (HIGH). Advance Directive: Full Code Anticipated Discharge - Date - - Location - SNF - Pending the following - final evaluations and placement Total time spent (which include face to face and non face to face encounters) : 41 minutes Toxic drug monitoring/narrow therapeutic index drug monitoring : # Drug name : insulin # Route administered : subq # Method of monitoring : monitor for hypo and hyperglycemia Extended Emergency Contact Information Primary Emergency Contact: SerafinEstefany Relation: Other Secondary Emergency Contact: SerafinSandeep Relation: Child Joana Haywood MD Division of Hospitalist Medicine [facility] Images from the original note were not included. SUBJECTIVE: No events overnight. Patient denies any further emesis. 1 bowel movement. Patient denies any overt bleeding. No abdominal pain at this time. Tolerating oral intake. Denies fever/chills, chest pain, shortness of breath, nausea/vomiting, diarrhea/constipation, headache, cough. CURRENT MEDICATIONS: Current Facility-Administered Medications: acetaminophen (Tylenol) tablet 650 mg, 650 mg, Oral, q6h PRN OR acetaminophen (Tylenol) suppository 650 mg, 650 mg, Rectal, q6h PRN, Julio Adams MD dextrose 5 % infusion, 100 mL/hr, IntraVENous, PRN, Julio Adams MD, Last Rate: 100 mL/hr at 11/12/24 1205, 100 mL/hr at 11/12/24 1205 dextrose 50 % solution 12.5 g, 12.5 g, IntraVENous, PRN, Julio Adams MD gabapentin (Neurontin) capsule 200 mg, 200 mg, Oral, BID, Joana Haywood MD, 200 mg at 11/13/242032 glucagon (human recombinant) injection 1 mg, 1 mg, IntraMUSCular, PRN, Julio Adams MD glucose oral gel 15 g, 15 g, Oral, PRN, Julio Adams MD insulin glargine (Lantus) injection 18 Units, 18 Units, SubCUTAneous, Nightly, Joana Haywood MD, 18 Units at 11/12/24 221 Insulin Lispro (Humalog) injection 0-12 Units, 0-12 Units, SubCUTAneous, TID WC, 6 Units at 11/12/24 1704 AND Insulin Lispro (Humalog) injection 0-12 Units, 0-12 Units, SubCUTAneous, Nightly, Julio Adams MD, 6 Units at 11/12/242035 Insulin Lispro (Humalog) injection 14 Units, 14 Units, SubCUTAneous, TID WC, Joana Haywood MD, 14 Units at 11/13/24 1217 ipratropium-albuterol (Duo-Neb) 0.5-2.5 mg/3 mL nebulizer solution 3 mL, 3 mL, Nebulization, BID PRN, Joana Haywood MD lisinopril tablet 20 mg, 20 mg, Oral, Daily, Joana Deysi Morehart, MD, 20 mg at 11/13/24915 metoprolol succinate XL (Toprol-XL) 24 hr tablet 50 mg, 50 mg, Oral, Daily, Joana Haywood MD, 50 mg at 11/13/24915 mirtazapine (Remeron) tablet 45 mg, 45 mg, Oral, Nightly, Joana Haywood MD, 45 mg at 11/13/242032 ondansetron ODT (Zofran-ODT) disintegrating tablet 4 mg, 4 mg, Oral, q8h PRN OR ondansetron (Zofran) injection 4 mg, 4 mg, IntraVENous, q6h PRN, uJlio Adams MD pantoprazole (ProtoNix) EC tablet 40 mg, 40 mg, Oral, qAM AC, 40 mg at 11/13/24 0547 OR pantoprazole (ProtoNix) 40 mg in sodium chloride (PF) 0.9 % 10 mL injection, 40 mg, IntraVENous, qAM AC, Chao Pal MD polyethylene glycol (PEG) 3350 (Miralax) packet 17 g, 17 g, Oral, Daily PRN, Julio Adams MD OBJECTIVE VITALS: BP 125/82 (BP Location: Right arm, Patient Position: Sitting) Pulse 80 Temp 37.8 C (100.1 F) (Temporal) Resp 18 Ht 5' 1 (1.549 m) Wt 163 lb (73.9 kg) SpO2 97% BMI 30.80 kg/m TEMPERATURE: Current - Temp: 37.8 C (100.1 F); Max - Temp Av.8 C (98.2 F) Min: 35.8 C (96.4 F) Max: 37.8 C (100.1 F) RESPIRATIONS RANGE: Resp Av.4 Min: 16 Max: 18 PULSE RANGE: Pulse Av.1 Min: 71 Max: 87 BLOOD PRESSURE RANGE: Systolic (24hrs), Av , Min:125 , Max:185 ; Diastolic (24hrs), Av, Min:69, Max:90 PULSE OXIMETRY RANGE: SpO2 Av.7 % Min: 93 % Max: 99 % 24HR INTAKE/OUTPUT: Intake/Output Summary (Last 24 hours) at 11/13/2024 2336 Last data filed at 11/13/2024 2255 Gross per 24 hour Intake 500 ml Output 1375 ml Net -875 ml GENERAL: Pleasant and NAD. HEENT: NCAT, PERRLA, EOMI, Scleral anicteric. Oropharhynx clear with no erythema or exudate. Neck supple, no cervical LAD or thyromegaly. CV: RRR, NL S1/S2, no murmurs. Distal pulses palpable and equal b/l. LUNGS: CTA b/l. Normal percussion and palpation. No W/R/R. ABD: + BS, soft, non-tender and non-distended. No hepatosplenomegaly. No mass felt. No rebound or guarding. EXT: No C/C/E. No muscle atrophy. SKIN: No skin lesion or breakdown. NEURO: Patient with some confusion, CN II-XII grossly intact. No asterixis. Laboratory Data: CBC: Results from last 7 days Lab Units 11/13/24 0141 11/12/2451311/11/242057 WBC AUTO 10*3/uL 6.9 7.6 11.4* HEMOGLOBIN g/dL 10.4* 10.8* 12.7 HEMATOCRIT % 34.4* 35.1 40.3 PLATELETS 10*3/uL 154 171 190 CMP: Recent Labs 11/12/2451311/13/2458 NA 137 137 K 3.7 3.6 CL 107 108* CO2 22* 21* BUN 34* 25* CREATININE 1.32* 1.02 GLUCOSE 190* 140* CALCIUM 8.3* 7.7* HEPATIC: Results from last 7 days Lab Units 11/13/24 00511/11/242057 ALK PHOS U/L 65 82 BILIRUBIN TOTAL mg/dL 0.2 0.4 PROTEIN TOTAL g/dL 5.3* 7.0 ALT U/L 14 17 AST U/L 24 35* LIPASE/AMYLASE: Recent Labs 11/11/242057 LIPASE 6 LACTATE: No lab exists for component: LACTA TROPONIN: No results for input(s): TROPONINI in the last 72 hours. LIPIDS: No results for input(s): CHOL, HDL in the last 72 hours. No lab exists for component: LDLCALCU INR: No results for input(s): INR in the last 72 hours. NH3:No results for input(s): AMMONIA in the last 72 hours. BNP: No results for input(s): BNP in the last 72 hours. Imaging: ECG 12 lead Sinus rhythm Atrial premature complex Borderline repolarization abnormality Electronically Signed On 11-12-2024 05:38:47 EDT by Ruth GalindoLois POCT glucose meter Result Date: 11/12/2024 Performed by: [facility], [address] [place] [id number] CLIA ID: [id number] POCT glucose meter Result Date: 11/12/2024 Performed by: [facility], [address] [place] [id number] CLIA ID: [id number] CT head wo IV contrast Result Date: 11/12/2024 [facility] Name[facility] 1940 [id number] Exam Date/Time: 11/12/2024 00:15 Procedure: CT HEAD WO IV CONTRAST Ordering Provider: ADAMS ISH Reason For Exam: Mental status change, unknown cause CT HEAD: CLINICAL INDICATION: Mental status change, unknown cause. TECHNIQUE: Transaxial CT sequence performed through the head with 3 mm reconstruction. Sagittal and Coronal reconstruction images included. Dose reduction employed with automated exposure control. COMPARISON: CT head from 02/16/2019. MRI brain from 03/11/2017 FINDINGS: Ventricles and Extra-axial spaces: Normal in size and morphology for the patient's age. No abnormal extracerebral collection identified. Cerebral and cerebellar parenchyma: Periventricular low attenuation areas bilaterally, corresponding to chronic microvascular ischemic change. No additional focal mass lesion or evidence for acute infarct throughout the cerebrum or cerebellum. Hemorrhage: None Brainstem: Normal Visualized Paranasal sinuses: Normal. Mastoid air cells: Normal Visualized Orbits: Normal Calvarium and skull base: Normal Other: Atherosclerotic calcification within the distal internal carotid arteries Diminished cerebral volume and evidence of chronic microvascular ischemic change without acute intracranial abnormality. Report Dictated on Electronically Signed By: Ruslan Barnes MD Electronically Signed Date/Time: 11/12/2024 12:34 AM EDT IMPRESSION: Coffee ground emesis - single episode at home (none while in hospital), VSS, initial hemoglobin was 12.7. Yesterday hemoglobin was 10.8. Today hemoglobin 10.4. Hemoglobin is relatively stable. Eliquis held History of blood clot - on Eliquis (currently held) Dementia RECOMMENDATIONS: Continue to monitor for additional hematemesis/trend Hgb Continue PPI once daily Continue to hold Eliquis Spoke with family member at bedside and given age, stable Hgb and no additional episodes of bleeding, will hold off on EGD at this time If clinical status changes, would consider EGD then. GI will follow peripherally. Please reach out with any questions or concerns. (Comment: Please note this report has been produced using speech recognition software and may contain errors related to that system including errors in grammar, punctuation, and spelling, as well as words and phrases that may be inappropriate. If there are any questions or concerns please feel free to contact the dictating provider for clarification.) Images from the original note were not included. PHYSICAL THERAPY [facility] Initial Evaluation Name/MRN: Margarita Betancourt ([id number]) Evaluation Date: 11/13/2024 Date of : 1940 Admission Date: 11/11/2024 8:32 PM Age: 84 y.o. Room/Bed: B2-250/B2-250 B Discharge Recommendation: [facility] Facility Equipment Needed: No Assessment IMPRESSION: Pt arrived to [facility] on 11/11/24 with complaints of emesis and stool discoloration. Pt presents with decreased functional mobility, decreased strength, decreased safety awareness, and decreased balance. Pt's subjective information was gathered from the patient and none other; it has yet to be determined if pt is an accurate historian. Pt states that prior to admission she was independent with functional mobility requiring the use of a no assistive device. Upon evaluation, pt was mod A for bed mobility and mod A for transfers. Pt refused to attempt ambulation this date d/t lack of motivation primary and fatigue. Pt has medical history as indicated below that contributes to their clinical presentation. Pt would benefit from skilled therapeutic intervention to address functional limitations while they are admitted to the hospital with a recommendation of SNF upon DC. Admitting Diagnosis: confusion Prognosis: fair Performance Deficits /Impairments: Decreased Functional Mobility, Decreased ADL status, Decreased Strength, Decreased Safety Awareness, Decreased Endurance, Decreased Balance, and Decreased Cognition Decision Making: Medium Complexity Subjective Pt was awake and reluctant to physical therapy upon arrive. Pt indicated complaints of headache and no indication of pain. Denies any further symptoms. Indicates lack of motivation I don't want to yet expresses desire to go home. Pain: Pt denies any current pain. Pt on 2L of supplemental O2 upon arrival Bed alarm was not in place upon arrival, bed alarm was in place at end of session. Past Medical History: Past Medical History: Diagnosis Date Asthma Blood clot in vein Dementia ([facility]) Depression Diabetes mellitus (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) 02/16/2019 Bilateral lower extremity edema 07/31/2018 Edema of both legs 07/31/2018 Dementia ([facility]) 04/17/2018 DVT of lower limb, acute ([facility]) 07/03/2016 Diabetes mellitus type 1, controlled ([facility]) 07/03/2016 Medical Precautions: No active isolations Proper PPE donned/doffed in accordance with facility standards. Fall Risk: Castle Fall Risk Score: 70 (High Risk) Precautions/Restrictions: Lines/Drains/Airways: pt currently on 2L of supplemental O2 , catheter Family/Caregiver Present: none Overall Cognitive Status: Exceptions - Arousal/alertness: delayed responses to stimuli and inconsistent responses to stimuli - Following commands: inconsistently follows commands - Safety judgement: decreased awareness of need for safety - Problem solving: assistance required to generate solutions, assistance required to implement solutions, assistance required to identify errors made, and assistance required to correct errors made - Insights: decreased awareness of deficits and decreased understanding of level of function required to return home safely. - Initiation: requires cues for some - Sequencing: requires cues for some Pt's primary limitation with cognition at this time is lack of motivation. She demonstrated difficulty with problem solving and judgements for safety including denying help retrieving glasses needed at all times that she states were in the room. The functional mobility that she demonstrated today was mildly less that she is capable of indicated by her refusal to initiate muscle contraction during LE management in bed without assistance. Additionally, the pt's abilities as an accurate historian of social history have yet to be determined. Overall Orientation Status: Oriented to Place, Oriented to Person, and Disoriented to Time - pt was able to decipher year following dichotomous choice between 1994 and 2024 Vision: wears glasses at all times and and are NOT being used during the eval, pt states her glasses are in the room yet denies help to retrieve them Hearing: normal Social/Functional History Pt's subjective information was gathered from the patient and none other. Pt's abilities as an accurate historian have yet to be determined. Patient admitted from home. Lives With: Son and daughter in law Type of Home: single family home Home Layout: Single Level Home Home Access: Level Entry Bathroom Shower/Tub: Walk in Shower Toilet: Handicap Height Home Equipment: none Homemaking Responsibilities: Independent Receives Help From: Other Active Claims Supervisor: Yes Prior Level of Function Prior Level of ADL Function: Independent Prior Level of Mobility: Independent; Device: None Prior Level of Transfers: Independent Objective Lower Extremity Assessment AROM: WFL Strength: pt demonstrated appropriate strength for functional mobility of bed mobility and sit<>stand transfer for standing OOB Balance: Balance During Session: Posture: poor Sitting - Static: SBA, Contact Guard, Min Assist Sitting - Dynamic: SBA Standing - Static: SBA, Contact Guard Standing - Dynamic: not assessed at this time Pt required several varying levels of assistance for anterior weight shift during sitting static balance in order to continue sitting EOB with upright posture. Pt performed standing static balance with SBA/CGA with FWW with refusal to attempt dynamic standing balance. Bed Mobility: Supine to sit: Mod Assist Sit to supine: Mod Assist Scooting: Min Assist Pt performed bed mobility with mod A for supine<>sit for LE management. While performing, pt was able to demonstrate appropriate LE movements initially, however, pt discontinued initiation of muscle contraction after 2 successful LE movements requiring mod A for LE management. Additionally, pt required mod A to achieve upright trunk following mod verbal cues for proper hand placement and body mechanics. Transfers Sit to stand: Mod Assist Stand to sit: Mod Assist After much encouragement, pt performed STS x1 with mod A to achieve standing and mod verbal cues for anterior weight shift, hand placement, surface approximation, and proper body mechanics. Upon standing, pt require min verbal cues for upright posture with patient able to demonstrate carry over of skill after one command. Pt refused to attempt pre-ambulation exercises after achieving standing. Outcome Measures AM-PAC How much HELP from another person do you currently need Turning from your back to your side while in a flat bed without using bedrails?: A Lot Moving from lying on your back to sitting on the side of a flat bed without using bedrails?: A Lot Standing up from a chair using your arms (wheelchair or bedside chair)?: A Lot Walking in a hospital room?: Total Stair climbing assessed?: No JH-HLM -HLM Score: Static standing (1 or more minutes) Plan Pt would benefit from skilled acute PT services to address Strengthening, Gait Training, Balance Training, Self-Care/ADL Training, Functional Mobility Training, Endurance Training, Safety Education and Training, Home Management Training, and Patient/Caregiver Training. Frequency: 8 visits during current hospital admission or until additional recommendations are made Barriers: Impaired balance, Lower extremity weakness, Decreased endurance, Limited safety awareness, Confusion, Cognitive deficit, Limited insight into deficits, Decreased motivation, Limited participation, and Unrealistic expectations Safety/Education Safety Safety Devices in place: call light within reach, left in bed, bed alarm in place, and gait belt Restraints: No Education Education Given To: patient Education Provided: PT Role, PT Goals, Plan of Care, Precautions, Energy Conservation, Equipment, Fall Prevention Education, Discharge Recommendations, and Breathing Techniques Education Method: Verbal and Demonstration Barriers to Learning: Cognition, lack of motivation Education Outcome: Continued Education Needed and limited due to lack of motivation Goals Patient Stated Goal: to go home as soon as possible Encounter Problems Encounter Problems (Active) Balance Patient will maintain dynamic standing balance for 8 minutes with CGA in order to demonstrate decreased risk of falling. Start: 11/13/24 Expected End: 11/23/24 Patient will maintain dynamic sitting balance for 8 minutes with supervision in order to demonstrate improved postural control and prepare for out of bed mobility. Start: 11/13/24 Expected End: 11/23/24 Exercise Patient will complete lower extremity exercises for 1-2 sets / 10-15 reps in order to improve strength and activity tolerance for mobility. Start: 11/13/24 Expected End: 11/23/24 Mobility Patient will ambulate 10 feet with CGA and rolling walker in order to improve safety and independence with mobility. Start: 11/13/24 Expected End: 11/23/24 Transfers Patient will perform bed mobility with CGA in order to improve independence and prepare for out of bed mobility. Start: 11/13/24 Expected End: 11/23/24 Patient will complete sit to stand transfer with CGA to wheeled walker in order to improve safety and prepare for out of bed mobility. Start: 11/13/24 Expected End: 11/23/24 Therapy Time Individual Co-Treatment Co-Evaluation Time In 1336 Time Out 1357 Minutes 21 Sophie Vila Patient's Physical Therapy Plan of Care supervision is transferred to a [facility] Therapy Services Physical Therapist. Goals and/or treatment plan was established in collaboration with patient/family/other representatives. Cosigned by Lonnie Ray PT at 11/13/2024 3:06 PM EDT Images from the original note were not included. OCCUPATIONAL THERAPY [facility] Initial Evaluation Name/MRN: Margarita Betancourt ([id number]) Evaluation Date: 11/13/2024 Date of : 1940 Admission Date: 11/11/2024 8:32 PM Age: 84 y.o. Room/Bed: B2-250/B2-250 B Discharge Recommendation: [facility] Facility Assessment IMPRESSION: Pt admitted to ED on 11/11 with confusion, vomiting, and diarrhea. Pt with known h/o GI bleed that is recommended for non-op tx. PMH significant for dementia. Prior to admission, pt lived with family and performed ADLs and mobility independently. Upon eval, pt required Min-Mod A for bed mobility, CGA for transfers, Min A for mobility, and Min A for ADLs. Pt would benefit from skilled OT services in order to increase safety and independence in occupational tasks. Recommend SNF upon DC. Admitting Diagnosis: confusion Performance Deficits /Impairments: Decreased Functional Mobility, Decreased ADL status, Decreased Strength, Decreased Endurance, Decreased Balance, and Decreased Cognition Prognosis: Good Decision Making: Medium Complexity Subjective Pt very pleasant and agreeable to therapy eval but mildly confused during the session. Pain: Pt denies any current pain. Past Medical History: Past Medical History: Diagnosis Date Asthma Blood clot in vein Dementia ([facility]) Depression Diabetes mellitus (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) 02/16/2019 Bilateral lower extremity edema 07/31/2018 Edema of both legs 07/31/2018 Dementia ([facility]) 04/17/2018 DVT of lower limb, acute ([facility]) 07/03/2016 Diabetes mellitus type 1, controlled ([facility]) 07/03/2016 Medical Precautions: No active isolations Proper PPE donned/doffed in accordance with facility standards. Fall Risk: Castle Fall Risk Score: 70 (High Risk) Precautions/Restrictions: N/A Family/Caregiver Present: none Overall Cognitive Status: Exceptions - Following commands: follows one step commands with increased time and follows one step commands with repetition - Memory: decreased recall of recent events and decreased short term memory - Problem solving: assistance required to generate solutions, assistance required to implement solutions, assistance required to identify errors made, assistance required to correct errors made, and decreased awareness of errors - Insights: decreased awareness of deficits - Initiation: requires cues for some - Sequencing: requires cues for some Overall Orientation Status: Oriented to Person, Disoriented to Situation, and Disoriented to Time Social/Functional History Pt provided her own social functional history, however she is a questionable historian at this time. Patient admitted from home. Lives With: Son and daughter in law Type of Home: single family home Home Layout: Single Level Home Home Access: Level Entry Bathroom Shower/Tub: Walk in Shower Toilet: Handicap Height Home Equipment: none Homemaking Responsibilities: Independent Receives Help From: Other Active Claims Supervisor: Yes Prior Level of Function Prior Level of ADL Function: Independent Prior Level of Mobility: Independent; Device: None Prior Level of Transfers: Independent Objective ADLs LE Dressing: Min Assist Toileting: SBA Pt able to simulate bathroom level toileting with SBA. She did not need to void and currently has a haji catheter in place. Pt attempted to don/doff her R sock while sitting at EOB. She used a hip hinge technique and was able to manage her sock chcf down her foot but required assist to mange it fully off and put it back on. Upper Extremity Assessment AROM: WFL PROM: Not assessed this session Strength: Exceptions: mild generalized weakness. > 3/5 strength observed for UB during functional activities Bed Mobility Supine to sit: Min Assist Sit to supine: Mod Assist Scooting: Min Assist Pt able to complete supine to sit bed mobility with Min A for [employer]. Pt required additional time to complete with HOB elevated and heavy use of bed rail. Min A to square hips and scoot to EOB. Pt then required mod A for B LE management to return to supine. Pt denied dizziness with positional changes. Transfers/Mobility Sit to stand: Contact Guard Stand to sit: Contact Guard Toilet: Contact Guard Standing balance: Contact Guard Functional mobility: Min Assist Pt stood from EOB to FWW with CGA. She completed ~ 4 lateral side steps to the R with Min A. Pt then walked to/from the bathroom with Min A for walker management. Pt complete a toilet transfer with CGA using a L grab bar. She returned to EOB at end of session and declined further walking at this time. Device(s) used: Front wheeled walker Vision: Not Assessed Hearing: normal AM-PAC AM-PAC Inpatient Daily Activity Raw Score: 20 ADL Inpatient CMS G-Code Modifier: CJ Plan Pt would benefit from skilled acute OT services to address Strengthening, Balance Training, Self-Care/ADL Training, Functional Mobility Training, Endurance Training, Safety Education and Training, Equipment Evaluation/Education, Cognitive Reorientation, Patient/Caregiver Training, and Cognitive/Perceptual Training. Frequency: 5 visits during current hospital admission or until additional recommendations are made Barriers: Impaired balance, Lower extremity weakness, Upper extremity weakness, Decreased endurance, Confusion, and Cognitive deficit Safety/Education Safety Safety Devices in place: All fall risk precautions in place, call light within reach, left in bed, gait belt, patient at risk for falls, and nurse notified Restraints: N/A Education Education Given To: patient Education Provided: OT Role, Plan of Care, Transfer Training, Equipment, Fall Prevention Education, Discharge Recommendations, and Benefits of Increasing Activity Education Method: Verbal Barriers to Learning: Cognition Education Outcome: Continued Education Needed Goals Patient Stated Goal: none stated Encounter Problems Encounter Problems (Active) Balance Patient will maintain dynamic standing balance for 3 minutes with supervision in order to demonstrate decreased risk of falling. Start: 11/13/24 Expected End: 11/18/24 Dressings Lower Extremities Patient will complete LB ADLs with Mod I Start: 11/13/24 Expected End: 11/18/24 Mobility pt will perform functional mobility and transfers with LRAD and supervision Start: 11/13/24 Expected End: 11/18/24 Toileting Patient will complete toileting tasks at standard toilet with modified independence. Start: 11/13/24 Expected End: 11/18/24 Transfers Patient will perform bed mobility with modified independence in order to improve independence and prepare for out of bed mobility. Start: 11/13/24 Expected End: 11/18/24 Therapy Time Individual Co-Treatment Co-Evaluation Time In 0855 Time Out 0909 Minutes 14 Miranda Bower OT Patient's Occupational Therapy Plan of Care supervision is transferred to a [facility] Therapy Services Occupational Therapist. Goals and/or treatment plan was established in collaboration with patient/family/other representatives. Hospitalist Progress Note 11/13/2024 Subjective: Admit Date: 11/11/2024 PCP: JONN KRISHNAMURTHY DO Room#: B2-250/B2-250 B BRIEF HOSPITAL COURSE: Margarita Betancourt presented to the emergency department on November 11 with nausea, vomiting, and emesis. The emesis was described as coffee-ground in appearance. She also reported dark tarry stools, associated with increased dizziness, lightheadedness, and syncope. The patient has a past medical history significant for dementia, depression, diabetes, hypertension, and asthma. Upon admission, the patient was diagnosed with acute GI bleed, myasthenic chronic anemia, HARINDER mucositis, and dehydration. Initial labs showed elevated WBC at 11.4, creatinine at 1.47, and AC elevated at 35. Subsequent labs revealed a drop in creatinine to 1.32 and hemoglobin to 10.8 from 12.7 at arrival. Iron studies showed low iron at 20, low iron saturation at 8.5, and low iron binding capacity at 236. Urinalysis demonstrated hematuria and proteinuria without signs of infection.Imaging of head: Diminished cerebral volume and evidence of chronic microvascular ischemic changes Neurology consulted and believed altered mental status secondary to GI bleed, and Alzheimer's disease, and ensuring electrolyte managed. Interval History: Sleeping but wakes when called easily. Feels more alert today and denies any further nausea or black stools at this time. No fever or chills. Still not aware of where she is. No further concerns expressed. States she ate breakfast but neighbor denied her eating anything. Neighbor did say she was coughing a bit more today which patient denied . Case and plan discussed with patient and bedside nurse. All questions answered. 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 Hypertension LABS: CBC: Recent Labs 11/11/24205711/12/2414 11/13/24 0141 WBC 11.4* 7.6 6.9 RBC 5.29* 4.52 4.39 HGB 12.7 10.8* 10.4* HCT 40.3 35.1 34.4* MCV 76.2* 77.7 78.4 RDW 20.5* 20.4* 20.1* PLT 190 171 154 BMP: Recent Labs 11/11/24205711/12/24 0514 11/13/24 0059 NA 138 137 137 K 5.1 3.7 3.6 CL 108* 107 108* CO2 20* 22* 21* BUN 36* 34* 25* CREATININE 1.47* 1.32* 1.02 GLUCOSE 85 190* 140* CALCIUM 8.9 8.3* 7.7* ANIONGAP 10 8 8 LIVER PROFILE: Recent Labs 11/11/24205711/13/24 0059 AST 35* 24 ALT 17 14 BILITOT 0.4 0.2 ALKPHOS 82 65 PROT 7.0 5.3* PT/INR: No results for input(s): PROTIME, INR in the last 72 hours. CARDIAC ENZYMES: No results for input(s): TROPONINI in the last 72 hours. Procalcitonin: No results found for: PROCAL COVID-19 PCR: No results for input(s): COVID19 in the last 72 hours. Objective: Vitals: BP (!) 175/90 (BP Location: Right arm) Pulse 71 Temp 36.3 C (97.3 F) (Temporal) Resp 16 Ht 5' 1 (1.549 m) Wt 163 lb (73.9 kg) SpO2 98% BMI 30.80 kg/m Pulse Ox: SpO2 Av.7 % Min: 93 % Max: 99 % Supplemental O2: O2 Flow Rate (L/min): 2 L/min Physical Exam Physical Examination - General: Sleeping, awake easily- disorientated - only orientated to self. - Respiratory: Wearing nasal cannula, decreased air entry to bases bilaterally. Coughing noted. - Cardiovascular: Heart rate regular with no abnormal murmur on exam. - Abdomen: Soft, non-tender. - Extremities: Swelling to bilateral legs, non-pitting. Right leg appears slightly reddened and warm to touch. Medications: Scheduled PRN gabapentin, 200 mg, Oral, BID insulin glargine, 18 Units, SubCUTAneous, Nightly insulin lispro, 0-12 Units, SubCUTAneous, TID WC And insulin lispro, 0-12 Units, SubCUTAneous, Nightly Insulin Lispro, 14 Units, SubCUTAneous, TID WC lisinopril, 20 mg, Oral, Daily metoprolol succinate XL, 50 mg, Oral, Daily mirtazapine, 45 mg, Oral, Nightly pantoprazole, 40 mg, Oral, qAM AC Or pantoprazole (ProtoNix) 40 mg in sodium chloride (PF) 0.9 % 10 mL injection, 40 mg, IntraVENous, qAM AC PRN medications: acetaminophen OR acetaminophen, dextrose, dextrose, glucagon (rDNA), glucose, ipratropium-albuterol, ondansetron ODT OR ondansetron, polyethylene glycol (PEG) 3350 Continuous Assessment Data: (CAT1) Reviewed 3 or more notes from different specialty or health system (each=1). (CAT1) Reviewed 3 or more labs/studies ordered by another provider not previously counted (each=1, panels count as 1). (CAT1) Ordered 3 or more new labs and/or studies (each=1, panels count as 1). (LOW: 2x CAT1 or independent historian MOD: 3x CAT1 or 1x CAT3 EXTENSIVE: 3x CAT1 and 1x CAT3) Acute, acute on chronic, unstable/uncontrolled chronic problems/diagnoses: Emesis and diarrhea - coffee ground emesis - Hgb stable - resolved. - Admit to floor - GI consultations. - PPI daily, HOLD eliquis, - Daily labs - monitor for repeat bleeding, may need EGD in future. Acute Kidney Injury Patient presents with elevated creatinine, initially at 1.47 on admission. Repeat labs showed improvement with creatinine dropping to 1.32. The HARINDER is likely due to dehydration associated with the GI bleed. Urinalysis revealed hematuria and proteinuria without signs of infection, which may be related to the underlying renal dysfunction. - Continue monitoring of renal function with serial creatinine measurements - Maintain adequate hydration - Adjust medications as needed based on renal function Altered Mental Status Patient exhibits altered mental status, which may be multifactorial given her history of dementia and the acute presentation of GI bleed. Head imaging shows diminished cerebral volume and evidence of chronic microvascular ischemic changes, which could contribute to her cognitive status. The patient's responses during the examination were limited, requiring increased encouragement to wake up. - Neurology consult requested for evaluation of altered mental status - Continue monitoring cognitive status and level of consciousness - Head imaging results to be reviewed with neurology - neurology feels AMS related to GIB - Home medications that can contributed to AMS - Mirtazapine nightly, decreased gabapentin to 200 mg PO BID, History of Blood clot - Hold Eliquis until no further signs of bleeding. Hypertension - Home lisinopril 20 mg PO daily - Metoprolol 50 mg PO daily Diabetes Mellitus with peripheral neuropathy Patient has a known history of diabetes. Current management includes a sliding scale insulin regimen. No acute issues related to diabetes were reported during this encounter. - Continue sliding scale insulin regimen - Monitor blood glucose levels - Decrease gabapentin dose to 200 mg PO BID Lower Extremity Edema and Possible Cellulitis Physical examination revealed bilateral leg swelling, with the right leg appearing slightly reddened and warm to touch. This presentation is concerning for possible cellulitis of the right leg, potentially complicating the patient's overall condition. - Monitor bilateral leg swelling - Assess right leg for progression of redness, warmth, and swelling - Consider antibiotic therapy if cellulitis is confirmed Respiratory Issues Patient is noted to be wearing a nasal cannula and has decreased air entry to lung bases bilaterally. The patient has a history of asthma, which may be contributing to her current respiratory status. Coughing was observed during the examination. - Continue oxygen therapy via nasal cannula - Monitor oxygen saturation and respiratory rate - Assess for any worsening of respiratory symptoms - Consider pulmonary function tests or chest imaging if symptoms persist or Plan As a result of the above findings & factors, the following mgmt was pursued: - 11/12- Medication list updated by pharmacy and confirmed by daughter at bedside. - 11/13- VS, labs reviewed - no further emesis or diarrhea - with blood - will continual to hold eliquis for one more day and discuss restarting in the next day or so. - am labs, replace lytes prn - PT/OT/CM/SW - delirium precautions: increase activity and limit nighttime disturbances - DVT prophylaxis: encourage ambulation and hold eliquis at this time. Complexity: Chronic illness with severe exacerbation, progression, or side effect of tx (HIGH). Risk: Admission to hospital-level care was considered or occurred (HIGH). Advance Directive: Full Code Anticipated Discharge - Date - - Location - SNF - Pending the following - final evaluations and placement Total time spent (which include face to face and non face to face encounters) : 41 minutes Toxic drug monitoring/narrow therapeutic index drug monitoring : # Drug name : insulin # Route administered : subq # Method of monitoring : monitor for hypo and hyperglycemia Extended Emergency Contact Information Primary Emergency Contact: Estefany Betancourt Relation: Other Secondary Emergency Contact: Sandeep Betancourt Relation: Child Joana Haywood MD Division of Hospitalist Medicine [employer] Nutrition rescreen complete. Pt assigned a level one for nutrition care. Images from the original note were not included. PHYSICAL THERAPY [facility] Name/MRN: Margarita Betancourt ([id number]) Date: 11/12/2024 Chart review completed. Recent documentation reveals that OT and RN reported that pt has been extremely lethargic and only wakes to touch occasionally. Pt opened her eyes briefly for OT at 10:55 but quickly returned to sleep. Pt not yet appropriate for therapy evaluation. Plan to re-attempt once pt is more awake and alert. Cristine Ritter PT Images from the original note were not included. OCCUPATIONAL THERAPY [facility] Name/MRN: Margarita Betancourt ([id number]) Date: 11/12/2024 OT orders received and chart reviewed. Spoke to RN at pts bedside, who reported that pt has been extremely lethargic and only wakes to touch occasionally. Pt opened her eyes briefly but quickly returned to sleep. Pt not yet appropriate for therapy evaluation. Plan to re-attempt once pt is more awake and alert. Miranda Bower OT Hospitalist Progress Note 11/12/2024 Subjective: Admit Date: 11/11/2024 PCP: JONN KRISHNAMURTHY DO Room#: B2-250/B2-250 B BRIEF HOSPITAL COURSE: Margarita Betancourt presented to the emergency department on November 11 with nausea, vomiting, and emesis. The emesis was described as coffee-ground in appearance. She also reported dark tarry stools, associated with increased dizziness, lightheadedness, and syncope. The patient has a past medical history significant for dementia, depression, diabetes, hypertension, and asthma. Upon admission, the patient was diagnosed with acute GI bleed, myasthenic chronic anemia, HARINDER mucositis, and dehydration. Initial labs showed elevated WBC at 11.4, creatinine at 1.47, and AC elevated at 35. Subsequent labs revealed a drop in creatinine to 1.32 and hemoglobin to 10.8 from 12.7 at arrival. Iron studies showed low iron at 20, low iron saturation at 8.5, and low iron binding capacity at 236. Urinalysis demonstrated hematuria and proteinuria without signs of infection.Imaging of head: Diminished cerebral volume and evidence of chronic microvascular ischemic changes Interval History: Appears confused,She reports no current pain, headache, dizziness, or chest pain. Her last bowel movement was reportedly yesterday, and she states she is eating and urinating normally. Denies any nausea, dizziness, lightheadedness, denies any further emesis or dark tarry stools. No overnight issues. Case and plan discussed with patient and bedside nurse. All questions answered. NPO diet with enteral medications 24HR INTAKE/OUTPUT: No intake or output data in the 24 hours ending 11/12/24904 Past Medical History: Past Medical History: Diagnosis Date Asthma Blood clot in vein Dementia (HCC) Depression Diabetes mellitus (HCC) Disease of blood and blood forming organ Hypertension LABS: CBC: Recent Labs 11/11/24205711/12/2414 WBC 11.4* 7.6 RBC 5.29* 4.52 HGB 12.7 10.8* HCT 40.3 35.1 MCV 76.2* 77.7 RDW 20.5* 20.4* PLT 190 171 BMP: Recent Labs 11/11/24205711/12/24513 NA 138 137 K 5.1 3.7 CL 108* 107 CO2 20* 22* BUN 36* 34* CREATININE 1.47* 1.32* GLUCOSE 85 190* CALCIUM 8.9 8.3* ANIONGAP 10 8 LIVER PROFILE: Recent Labs 11/11/242057 AST 35* ALT 17 BILITOT 0.4 ALKPHOS 82 PROT 7.0 PT/INR: No results for input(s): PROTIME, INR in the last 72 hours. CARDIAC ENZYMES: No results for input(s): TROPONINI in the last 72 hours. Procalcitonin: No results found for: PROCAL COVID-19 PCR: No results for input(s): COVID19 in the last 72 hours. Objective: Vitals: BP 144/75 Pulse 71 Temp 36.7 C (98.1 F) (Temporal) Resp 16 Ht 5' 1 (1.549 m) Wt 163 lb (73.9 kg) SpO2 97% BMI 30.80 kg/m Pulse Ox: SpO2 Av.8 % Min: 92 % Max: 99 % Supplemental O2: O2 Flow Rate (L/min): 3 L/min Physical Exam Physical Examination - General: Lying in bed sleeping, needed increased encouragement to wake up, was pleasant when woken up. - Respiratory: Wearing nasal cannula, decreased air entry to bases bilaterally. Coughing noted. - Cardiovascular: Heart rate regular with no abnormal murmur on exam. - Abdomen: Soft, non-tender. - Extremities: Swelling to bilateral legs, non-pitting. Right leg appears slightly reddened and warm to touch. Medications: Scheduled PRN insulin lispro, 0-12 Units, SubCUTAneous, TID WC And insulin lispro, 0-12 Units, SubCUTAneous, Nightly PRN medications: acetaminophen OR acetaminophen, dextrose, dextrose, glucagon (rDNA), glucose, ondansetron ODT OR ondansetron, polyethylene glycol (PEG) 3350 Continuous dextrose 5 % and sodium chloride 0.45 %, 75 mL/hr, Last Rate: 75 mL/hr (11/11/24 0986) Assessment Data: (CAT1) Reviewed 3 or more notes from different specialty or health system (each=1). (CAT1) Reviewed 3 or more labs/studies ordered by another provider not previously counted (each=1, panels count as 1). (CAT1) Ordered 3 or more new labs and/or studies (each=1, panels count as 1). (LOW: 2x CAT1 or independent historian MOD: 3x CAT1 or 1x CAT3 EXTENSIVE: 3x CAT1 and 1x CAT3) Acute, acute on chronic, unstable/uncontrolled chronic problems/diagnoses: Emesis and diarrhea - GI bleed - Admit to floor - GI consultations. - PPI daily, HOLD eliquis, - Daily labs - monitor for repeat bleeding, may need EGD in future. Acute Kidney Injury Patient presents with elevated creatinine, initially at 1.47 on admission. Repeat labs showed improvement with creatinine dropping to 1.32. The HARINDER is likely due to dehydration associated with the GI bleed. Urinalysis revealed hematuria and proteinuria without signs of infection, which may be related to the underlying renal dysfunction. - Continue monitoring of renal function with serial creatinine measurements - Maintain adequate hydration - Adjust medications as needed based on renal function Altered Mental Status Patient exhibits altered mental status, which may be multifactorial given her history of dementia and the acute presentation of GI bleed. Head imaging shows diminished cerebral volume and evidence of chronic microvascular ischemic changes, which could contribute to her cognitive status. The patient's responses during the examination were limited, requiring increased encouragement to wake up. - Neurology consult requested for evaluation of altered mental status - Continue monitoring cognitive status and level of consciousness - Head imaging results to be reviewed with neurology - neurology feels AMS related to GIB - Home medications that can contributed to AMS - Mirtazapine nightly, decreased gabapentin to 200 mg PO BID, History of Blood clot - Hold Eliquis until no further signs of bleeding. Hypertension - Home lisinopril 20 mg PO daily - Metoprolol 50 mg PO daily Diabetes Mellitus with peripheral neuropathy Patient has a known history of diabetes. Current management includes a sliding scale insulin regimen. No acute issues related to diabetes were reported during this encounter. - Continue sliding scale insulin regimen - Monitor blood glucose levels - Decrease gabapentin dose to 200 mg PO BID Lower Extremity Edema and Possible Cellulitis Physical examination revealed bilateral leg swelling, with the right leg appearing slightly reddened and warm to touch. This presentation is concerning for possible cellulitis of the right leg, potentially complicating the patient's overall condition. - Monitor bilateral leg swelling - Assess right leg for progression of redness, warmth, and swelling - Consider antibiotic therapy if cellulitis is confirmed Respiratory Issues Patient is noted to be wearing a nasal cannula and has decreased air entry to lung bases bilaterally. The patient has a history of asthma, which may be contributing to her current respiratory status. Coughing was observed during the examination. - Continue oxygen therapy via nasal cannula - Monitor oxygen saturation and respiratory rate - Assess for any worsening of respiratory symptoms - Consider pulmonary function tests or chest imaging if symptoms persist or Plan As a result of the above findings & factors, the following mgmt was pursued: - 11/12- Medication list updated by pharmacy and confirmed by daughter at bedside. - am labs, replace lytes prn - PT/OT/CM/SW - delirium precautions: increase activity and limit nighttime disturbances - DVT prophylaxis: encourage ambulation and hold eliquis at this time. Complexity: Chronic illness with severe exacerbation, progression, or side effect of tx (HIGH). Risk: Admission to hospital-level care was considered or occurred (HIGH). Advance Directive: Full Code Anticipated Discharge - Date - - Location - SNF - Pending the following - final evaluations and placement Total time spent (which include face to face and non face to face encounters) : 51 minutes Toxic drug monitoring/narrow therapeutic index drug monitoring : # Drug name : insulin # Route administered : subq # Method of monitoring : monitor for hypo and hyperglycemia Extended Emergency Contact Information Primary Emergency Contact: Estefany Betancourt Relation: Other Secondary Emergency Contact: Sandeep Betancourt Relation: Child Joana Haywood MD Division of Hospitalist Medicine [facility] documented in this encounter [facility] 11-19-2024 Plan of care note Problem: Knowledge Deficit Goal: Patient/family/caregiver demonstrates understanding of disease process, treatment plan, medications, and discharge instructions Outcome: Progressing Problem: Potential for Compromised Skin Integrity Goal: Skin Integrity is Maintained or Improved Outcome: Progressing Goal: Nutritional status is improving Outcome: Progressing Problem: Urinary Incontinence Goal: Perineal skin integrity is maintained or improved Outcome: Progressing Problem: Potential for Falls Goal: I will remain free of falls Outcome: Progressing Problem: Discharge Barriers Goal: My discharge needs are met Outcome: Progressing [facility] 11-18-2024 Note Formatting of this n ote might be different from the original. Care Management Progress Note Per facility they are unable to accept pt today frequent loose stools. Karen Tyler and RN updated on this and DC held till tomorrow. Transportation cancelled for today and placed on Will call. Called melecio Hopkins and updated him on this. Anticipate DC tomorrow. Length of Stay (Days): 7 GMLOS: 2.5 [facility] 11-18-2024 Note Formatting of this n ote might be different from the original. Care Management Progress Note Per facility they are unable to accept pt today frequent loose stools. Karen Tyler and RN updated on this and DC held till tomorrow. Transportation cancelled for today and placed on Will call. Called melecio Hopkins and updated him on this. Anticipate DC tomorrow. Length of Stay (Days): 7 GMLOS: 2.5 [facility] 11-18-2024 Note Care Management Prog ress Note Per facility they are unable to accept pt today frequent loose stools. Karen Tyler and RN updated on this and DC held till tomorrow. Transportation cancelled for today and placed on Will call. Called melecio Hopkins and updated him on this. Anticipate DC tomorrow. Length of Stay (Days): 7 GMLOS: 2.5 [facility] 11-18-2024 Note Formatting of this n ote might be different from the original. Discharge med list transmitted to [facility] via [facility] per [facility] request. 7000 was entered into [employer] for the SNF- previously completed. Facility is aware T [facility] 11-18-2024 Note Formatting of this n ote might be different from the original. Discharge med list transmitted to [facility] via [facility] per TCC request. 7000 was entered into [employer] for the SNF- previously completed. Facility is aware T [facility] 11-18-2024 Note [id number]] Res piratory Therapy Home O2 Progress Note O2 saturation at rest on room air: 91% (If resting saturation was 88% or less, enter NA for the next two values) O2 saturation with exertion on room air: na% (NA if not evaluated) O2 saturation on O2 at na LPM with exertion: na% (NA if not evaluated) Patient meets criteria for home O2 Y/N = n Patient mobile at home Y/N = n DME Notified na Patient left on RA for approximately 15 mins without becoming hypoxic. Ambulation not performed @ this time due to patient capability [facility] 11-18-2024 Note Formatting of this n ote might be different from the original. Care Management Progress Note Jayesh Mills claimed pickup for 3:30pm to take to [facility] SNF. Spoke with son Sandeep to notify him that pt was being discharged today to [facility] and also notified that there could be a copay for transport. Verbalized understanding. Length of Stay (Days): 7 GMLOS: 2.9 T [facility] 11-18-2024 Note Formatting of this n ote might be different from the original. Care Management Progress Note Jayesh Mills claimed pickup for 3:30pm to take to [facility] SNF. Spoke with son Sandeep to notify him that pt was being discharged today to [facility] and also notified that there could be a copay for transport. Verbalized understanding. Length of Stay (Days): 7 GMLOS: 2.9 [facility] 11-18-2024 Note Care Management Prog ress Note Jayesh Mills claimed pickup for 3:30pm to take to [facility]F. Spoke with son Sandeep to notify him that pt was being discharged today to [facility] and also notified that there could be a copay for transport. Verbalized understanding. Length of Stay (Days): 7 GMLOS: 2.9 [facility] 11-18-2024 Note Formatting of this n ote might be different from the original. Care Management Progress Note LINER REPLACER tasked to send DC packet and MAR to [facility]F. Length of Stay (Days): 7 GMLOS: 2.9 [facility] 11-18-2024 Note Formatting of this n ote might be different from the original. Care Management Progress Note LINER REPLACER tasked to send DC packet and MAR to [facility]. Length of Stay (Days): 7 GMLOS: 2.9 [facility] 11-18-2024 Note Care Management Prog ress Note LINER REPLACER tasked to send DC packet and MAR to [facility]. Length of Stay (Days): 7 GMLOS: 2.9 [facility] 11-18-2024 Plan of care note Problem: Knowledge Deficit Goal: Patient/family/caregiver demonstrates understanding of disease process, treatment plan, medications, and discharge instructions Outcome: Progressing Problem: Potential for Compromised Skin Integrity Goal: Skin Integrity is Maintained or Improved Outcome: Progressing Goal: Nutritional status is improving Outcome: Progressing Problem: Urinary Incontinence Goal: Perineal skin integrity is maintained or improved Outcome: Progressing Problem: Potential for Falls Goal: I will remain free of falls Outcome: Progressing Problem: Discharge Barriers Goal: My discharge needs are met Outcome: Progressing [facility] 11-18-2024 Nurse Note Images from the original note were not included. Wound Care consulted for Pressure Injury Prevention. Pt's Trey score= 13 on 11/18 Pt's pressure points assessed. Pt's Heels, Back, Elbows, Occiput and ears all intact. Pt turned with max assist of 1 (this RN) for posterior assessment. MASD noted to left groin. See photo in media tab. Right medial thigh with two proximal and distal blisters. See photo in media tab. MASD noted to perirectal area. Partial thickness wound noted to coccyx, measures 0.2cm x 0.2cm x 0.1cm, with surrounding blanchable erythema. See photo below. Wound [employer] group consulted/notified. Pt incontinent of stool at this time. Pads changed, incontinence care performed, linens changed, gown changed, barrier ointment applied. Prevention Measures in place, including: [place] sheet with pillows/wedges, Foam heel protectors (obtained and applied), Heels elevated off bed on pillows, Zinc/Moisture Barrier ointment (applied), Waffle chair cushion (obtain for pt once getting up out of bed to chair). Skin Care precaution order set in place. Dietitian consult order placed d/t wounds. PT/OT consult in place. Will continue to follow pt. Please secure chat for any questions or concerns. Karmen Swartz RN T [facility] 11-18-2024 Nurse Note Images from the original note were not included. Wound Care consulted for Pressure Injury Prevention. Pt's Trey score= 13 on 11/18 Pt's pressure points assessed. Pt's Heels, Back, Elbows, Occiput and ears all intact. Pt turned with max assist of 1 (this RN) for posterior assessment. MASD noted to left groin. See photo in media tab. Right medial thigh with two proximal and distal blisters. See photo in media tab. MASD noted to perirectal area. Partial thickness wound noted to coccyx, measures 0.2cm x 0.2cm x 0.1cm, with surrounding blanchable erythema. See photo below. Wound [employer] group consulted/notified. Pt incontinent of stool at this time. Pads changed, incontinence care performed, linens changed, gown changed, barrier ointment applied. Prevention Measures in place, including: [place] sheet with pillows/wedges, Foam heel protectors (obtained and applied), Heels elevated off bed on pillows, Zinc/Moisture Barrier ointment (applied), Waffle chair cushion (obtain for pt once getting up out of bed to chair). Skin Care precaution order set in place. Dietitian consult order placed d/t wounds. PT/OT consult in place. Will continue to follow pt. Please secure chat for any questions or concerns. Karmen Swartz RN documented in this encounter [facility] 11-18-2024 Note Formatting of this n ote might be different from the original. 7000 was entered into [employer] for the SNF- [facility] PER TCC REQUEST/ FACILITY IS AWARE [facility] 11-18-2024 Note Formatting of this n ote might be different from the original. 7000 was entered into [employer] for the SNF- [facility] PER TCC REQUEST/ FACILITY IS AWARE [facility] 11-18-2024 Note Hospitalist Discharg e Summary Margarita Betancourt : 1940 Admit date: 11/11/2024 Discharge date: 11/18/2024 Admitting Physician: Julio Adams MD Primary Care Physician: JONN KRISHNAMURTHY DO Visit Status: Inpatient Code Status: Full Code BRIEF HOSPITAL COURSE: Margarita Betancourt presented to the emergency department on November 11 with nausea, vomiting, and emesis. The emesis was described as coffee-ground in appearance. She also reported dark tarry stools, associated with increased dizziness, lightheadedness, and syncope. The patient has a past medical history significant for dementia, depression, diabetes, hypertension, and asthma. Upon admission, the patient was diagnosed with acute GI bleed, myasthenic chronic anemia, HARINDER mucositis, and dehydration. Initial labs showed elevated WBC at 11.4, creatinine at 1.47, and AC elevated at 35. Subsequent labs revealed a drop in creatinine to 1.32 and hemoglobin to 10.8 from 12.7 at arrival. Iron studies showed low iron at 20, low iron saturation at 8.5, and low iron binding capacity at 236. Urinalysis demonstrated hematuria and proteinuria without signs of infection.Imaging of head: Diminished cerebral volume and evidence of chronic microvascular ischemic changes Neurology consulted and believed altered mental status secondary to GI bleed, and Alzheimer's disease, and ensuring electrolyte managed. Confusion resolved. GI bleed resolved with discontinuing Eliquis - will restart at discharge. She was found to be positive for Noro Virus during the hospitalization on 11/15. PT and OT recommended SNF for decreased strength and endurances transferred to [facility] on 11/18 Acute, acute on chronic, unstable/uncontrolled chronic problems/discharge diagnoses: Emesis and diarrhea - coffee ground emesis - Hgb stable - resolved. Found to have noro virus - GI consultations - may need EGD if returns - PPI daily, restart Eliquis on discharge, likely attributed to diarrhea from juan carlos virus Leukocytosis -secondary to above. Acute Kidney Injury - stable Patient presents with elevated creatinine, initially at 1.47 on admission. Repeat labs showed improvement with creatinine improving The HARINDER is likely due to dehydration associated with the GI bleed. Urinalysis revealed hematuria and proteinuria without signs of infection, which may be related to the underlying renal dysfunction. Altered Mental Status Patient exhibits altered mental status, which may be multifactorial given her history of dementia and the acute presentation of GI bleed. Head imaging shows diminished cerebral volume and evidence of chronic microvascular ischemic changes, which could contribute to her cognitive status. - Neurology consult requested for evaluation of altered mental status > no concern for stroke was expressed - neurology feels AMS related to GIB - Home medications that can contributed to AMS - Mirtazapine nightly, decreased gabapentin to 200 mg PO BID, History of Blood clot - HELD eliquis which was restarted Hypertension - Home lisinopril 20 mg PO daily - Metoprolol 50 mg PO daily Diabetes Mellitus with peripheral neuropathy Patient has a known history of diabetes. Current management includes a sliding scale insulin regimen. No acute issues related to diabetes were reported during this encounter. 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 No focal consolidation is identified within the lungs. CT head 11/12: Impression: Diminished cerebral volume and evidence of chronic microvascular ischemic change without acute intracranial abnormality. Hospital Course: See discharge diagnoses list above and medication adjustments below in med rec.The patient is discharged in improved and stable condition. Consults: IP CONSULT TO GI IP CONSULT TO NEUROLOGY IP WOUND CARE NURSE CONSULT TO EVAL Discharge Instructions: Diet: Dietary Orders (From admission, onward) Start Ordered 11/12/24 1355 Adult diet Regular Diet effective now Question: Diet type Answer: Regular 11/12/24 1354 Activity: as tolerated Recommended Outpatient Tests: Disposition: Patient discharged in stable condition to Home. Greater than 31 minutes spent discharging the patient and coming up with patient discharge plan. Vitals: BP (!) 165/93 Pulse 83 Temp 36.3 ?C (97.4 ?F) (Temporal) Resp 20 Ht 5' 1 (1.549 m) Wt 163 lb (73.9 kg) SpO2 98% B (more content not included)... [facility] 11-18-2024 Hospital course Narrative Hospitalist Discharge Summary Margarita Betancourt : 1940 Admit date: 11/11/2024 Discharge date: 11/18/2024 Admitting Physician: Julio Adams MD Primary Care Physician: JONN KRISHNAMURTHY DO Visit Status: Inpatient Code Status: Full Code BRIEF HOSPITAL COURSE: Margarita Betancourt presented to the emergency department on November 11 with nausea, vomiting, and emesis. The emesis was described as coffee-ground in appearance. She also reported dark tarry stools, associated with increased dizziness, lightheadedness, and syncope. The patient has a past medical history significant for dementia, depression, diabetes, hypertension, and asthma. Upon admission, the patient was diagnosed with acute GI bleed, myasthenic chronic anemia, HARINDER mucositis, and dehydration. Initial labs showed elevated WBC at 11.4, creatinine at 1.47, and AC elevated at 35. Subsequent labs revealed a drop in creatinine to 1.32 and hemoglobin to 10.8 from 12.7 at arrival. Iron studies showed low iron at 20, low iron saturation at 8.5, and low iron binding capacity at 236. Urinalysis demonstrated hematuria and proteinuria without signs of infection.Imaging of head: Diminished cerebral volume and evidence of chronic microvascular ischemic changes Neurology consulted and believed altered mental status secondary to GI bleed, and Alzheimer's disease, and ensuring electrolyte managed. Confusion resolved. GI bleed resolved with discontinuing Eliquis - will restart at discharge. She was found to be positive for Noro Virus during the hospitalization on 11/15. PT and OT recommended SNF for decreased strength and endurances transferred to [facility] on 11/18 Acute, acute on chronic, unstable/uncontrolled chronic problems/discharge diagnoses: Emesis and diarrhea - coffee ground emesis - Hgb stable - resolved. Found to have noro virus - GI consultations - may need EGD if returns - PPI daily, restart Eliquis on discharge, likely attributed to diarrhea from juan carlos virus Leukocytosis -secondary to above. Acute Kidney Injury - stable Patient presents with elevated creatinine, initially at 1.47 on admission. Repeat labs showed improvement with creatinine improving The HARINDER is likely due to dehydration associated with the GI bleed. Urinalysis revealed hematuria and proteinuria without signs of infection, which may be related to the underlying renal dysfunction. Altered Mental Status Patient exhibits altered mental status, which may be multifactorial given her history of dementia and the acute presentation of GI bleed. Head imaging shows diminished cerebral volume and evidence of chronic microvascular ischemic changes, which could contribute to her cognitive status. - Neurology consult requested for evaluation of altered mental status > no concern for stroke was expressed - neurology feels AMS related to GIB - Home medications that can contributed to AMS - Mirtazapine nightly, decreased gabapentin to 200 mg PO BID, History of Blood clot - HELD eliquis which was restarted Hypertension - Home lisinopril 20 mg PO daily - Metoprolol 50 mg PO daily Diabetes Mellitus with peripheral neuropathy Patient has a known history of diabetes. Current management includes a sliding scale insulin regimen. No acute issues related to diabetes were reported during this encounter. 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 No focal consolidation is identified within the lungs. CT head 11/12: Impression: Diminished cerebral volume and evidence of chronic microvascular ischemic change without acute intracranial abnormality. Hospital Course: See discharge diagnoses list above and medication adjustments below in med rec.The patient is discharged in improved and stable condition. Consults: IP CONSULT TO GI IP CONSULT TO NEUROLOGY IP WOUND CARE NURSE CONSULT TO EVAL Discharge Instructions: Diet: Dietary Orders (From admission, onward) Start Ordered 11/12/24 1355 Adult diet Regular Diet effective now Question: Diet type Answer: Regular 11/12/24 1354 Activity: as tolerated Recommended Outpatient Tests: Disposition: Patient discharged in stable condition to Home. Greater than 31 minutes spent discharging the patient and coming up with patient discharge plan. Vitals: BP (!) 165/93 Pulse 83 Temp 36.3 C (97.4 F) (Temporal) Resp 20 Ht 5' 1 (1.549 m) Wt 163 lb (73.9 kg) SpO2 98% BMI 30.80 kg/m Pulse Ox: SpO2 Av % Min: 96 % Max: 98 % Supplemental O2: O2 Flow Rate (L/min): 3 L/min Physical Exam - General: Appears in no acute distress, moist mucus membranes, - Respiratory: Wearing nasal cannula, Clear lung sounds with slight crackles to bases - Cardiovascular: Heart rate regular with no abnormal murmur on exam. - Abdomen: Soft, some generalized tenderness. - Extremities: Swelling to bilateral legs, non-pitting. - Neuro: Good crystal mounter strength and lower extremity strength LABS: Recent Labs 11/16/24 0507 11/17/24 0323 11/18/24 0044 NA 139 138 141 K 4.0 4.0 4.3 CL 108* 108* 110* CO2 24 22* 24 BUN 30* 30* 31* CREATININE 1.27* 1.18* 1.27* GLUCOSE 76* 72* 49* CALCIUM 8.1* 8.1* 8.3* Recent Labs 11/16/24 0507 11/17/24 0323 11/18/24 0044 WBC 14.6* 12.8* 11.8* RBC 4.47 4.24 4.28 HGB 10.8* 10.2* 10.1* HCT 34.3* 32.6* 33.3* MCV 76.7* 76.9* 77.8 MCH 24.2* 24.1* 23.6* MCHC 31.5 31.3 30.3* RDW 19.9* 19.9* 19.9* PLT 160 202 236 MPV 11.5 11.6 11.4 Discharge Medications: Medication List CHANGE how you take these medications gabapentin 100 MG capsule Commonly known as: Neurontin Take 2 capsules (200 mg) by mouth 2 times daily. What changed: medication strength how much to take CONTINUE taking these medications CENTRUM SILVER ADULT 50+ PO docusate sodium 100 MG capsule Commonly known as: Colace Eliquis 5 MG tablet Generic drug: apixaban glucose blood test strip insulin glargine 100 UNIT/ML injection Commonly known as: Lantus insulin lispro 100 UNIT/ML pen injection Commonly known as: HumaLOG ipratropium-albuterol 0.5-2.5 mg/3 mL nebulizer solution Commonly known as: Duo-Neb lisinopril 20 MG tablet magnesium 30 MG tablet metoprolol succinate XL 50 MG 24 hr tablet Commonly known as: Toprol-XL mirtazapine 45 MG tablet Commonly known as: Remeron nitrofurantoin (macrocrystal-monohydrate) 100 MG capsule Commonly known as: Macrobid NON FORMULARY omeprazole [address] capsule Commonly known as: PriLOSEC ondansetron ODT 4 MG disintegrating tablet Commonly known as: Zofran-ODT oxyCODONE-acetaminophen 5-325 MG tablet Commonly known as: Percocet POTASSIUM CHLORIDE PO Prodigy Lancets 28G misc STOP taking these medications B COMPLEX PO CALCIUM-CHOLECALCIFEROL PO CO Q 10 PO hydrOXYzine pamoate 25 MG capsule Commonly known as: Vistaril PHENAZOPYRIDINE HCL PO QUEtiapine 25 MG tablet Commonly known as: SEROquel Where to Get Your Medications Information about where to get these medications is not yet available Ask your nurse or doctor about these medications gabapentin 100 MG capsule Recommended Follow-up: Jonn Krishnamurthy DO [address] [phone] Call Please call and schedule a follow up visit. Complexity of Follow up: [] Moderate Complexity: follow up within 7-14 calendar days (04992) [x] Severe Complexity: follow up within 7 calendar days (16628) Follow up Testing, Pending results or Referrals at Transitional Care Visit: [x] yes [] no Instructions to MA: Please call patient on day after discharge (must document patient contacted within 2 business days of discharge). Follow up questions for MA: 1. Did you get medications filled and taking them as instructed from discharge? 2. Are you following your discharge instructions from your hospital stay? 3. Please confirm patient is scheduled for a follow up appointment within the above time frame. Signed: Joana Haywood MD Division of Hospitalist Medicine [facility] 11/18/2024, 11:46 AM documented in this encounter [facility] 11-18-2024 Note Hospitalist Progress Note 11/18/2024 Subjective: Admit Date: 11/11/2024 PCP: JONN KRISHNAMURTHY DO Room#: B2-248/B2-248 B BRIEF HOSPITAL COURSE: Margarita Betancourt presented to the emergency department on November 11 with nausea, vomiting, and emesis. The emesis was described as coffee-ground in appearance. She also reported dark tarry stools, associated with increased dizziness, lightheadedness, and syncope. The patient has a past medical history significant for dementia, depression, diabetes, hypertension, and asthma. Upon admission, the patient was diagnosed with acute GI bleed, myasthenic chronic anemia, HARINDER mucositis, and dehydration. Initial labs showed elevated WBC at 11.4, creatinine at 1.47, and AC elevated at 35. Subsequent labs revealed a drop in creatinine to 1.32 and hemoglobin to 10.8 from 12.7 at arrival. Iron studies showed low iron at 20, low iron saturation at 8.5, and low iron binding capacity at 236. Urinalysis demonstrated hematuria and proteinuria without signs of infection.Imaging of head: Diminished cerebral volume and evidence of chronic microvascular ischemic changes Neurology consulted and believed altered mental status secondary to GI bleed, and Alzheimer's disease, and ensuring electrolyte managed to avoid future dehydration, Eliquis was restarted and family advised to monitor for bleed. She was found to be positive for Noro virus on 11/15. Interval History: Was originally supposed to be transferred to the facility - given continual diarrhea from her Noro - they have declined her transfer - she had two small loose movements today. 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 Hypertension LABS: CBC: Recent Labs 11/16/24 0507 11/17/243 11/18/24 0044 WBC 14.6* 12.8* 11.8* RBC 4.47 4.24 4.28 HGB 10.8* 10.2* 10.1* HCT 34.3* 32.6* 33.3* MCV 76.7* 76.9* 77.8 RDW 19.9* 19.9* 19.9* PLT 160 202 236 BMP: Recent Labs 11/16/24 0507 11/17/24 0323 11/18/24 0044 NA 139 138 141 K 4.0 4.0 4.3 CL 108* 108* 110* CO2 24 22* 24 BUN 30* 30* 31* CREATININE 1.27* 1.18* 1.27* GLUCOSE 76* 72* 49* CALCIUM 8.1* 8.1* 8.3* ANIONGAP 7 8 7 LIVER PROFILE: Recent Labs 11/16/24 0507 11/17/24 0323 11/18/24 0044 AST 21 27 31 ALT 17 17 22 BILITOT 0.4 0.2 0.2 ALKPHOS 67 66 67 PROT 5.4* 5.2* 5.4* PT/INR: No results for input(s): PROTIME, INR in the last 72 hours. CARDIAC ENZYMES: No results for input(s): TROPONINI in the last 72 hours. Procalcitonin: No results found for: PROCAL COVID-19 PCR: No results for input(s): COVID19 in the last 72 hours. Objective: Vitals: BP (!) 165/93 Pulse 83 Temp 36.3 ?C (97.4 ?F) (Temporal) Resp 20 Ht 5' 1 (1.549 m) Wt 163 lb (73.9 kg) SpO2 91% BMI 30.80 kg/m? Pulse Ox: SpO2 Av.5 % Min: 91 % Max: 98 % Supplemental O2: O2 Flow Rate (L/min): 3 L/min Physical Exam Physical Examination - General: Appears in no acute distress, moist mucus membranes, - Respiratory: Wearing nasal cannula, Clear lung sounds with slight crackles to bases - Cardiovascular: Heart rate regular with no abnormal murmur on exam. - Abdomen: Soft, some generalized tenderness. - Extremities: Swelling to bilateral legs, non-pitting. - Neuro: Good crystal mounter strength and lower extremity strength Medications: Scheduled PRN [START ON 11/19/2024] apixaban, 5 mg, Oral, Daily gabapentin, 200 mg, Oral, BID insulin glargine, 18 Units, SubCUTAneous, Nightly insulin lispro, 0-12 Units, SubCUTAneous, TID WC And insulin lispro, 0-12 Units, SubCUTAneous, Nightly Insulin Lispro, 14 Units, SubCUTAneous, TID WC lisinopril, 20 mg, Oral, Daily metoprolol succinate XL, 50 mg, Oral, Daily mirtazapine, 45 mg, Oral, Nightly pantoprazole, 40 mg, Oral, qAM AC Or pantoprazole (ProtoNix) 40 mg in sodium chloride (PF) 0.9 % 10 mL injection, 40 mg, IntraVENous, qAM AC PRN medications: acetaminophen OR acetaminophen, dextrose, dextrose, glucagon (rDNA), glucose, hydrALAZINE, ipratropium-albuterol, ondansetron ODT OR ondansetron, polyethylene glycol (PEG) 3350 Continuous Assessment Data: (CAT1) Reviewed 3 or more notes from different specialty or health system (each=1). (CAT1) Reviewed 3 or more labs/studies ordered by another provider not previously counted (each=1, panels count as 1). (CAT1) Ordered 3 or more new labs and/or studies (each=1, panels count as 1). (LOW: 2x CAT1 or independent (more content not included)... [facility] 11-18-2024 Note Formatting of this n ote might be different from the original. Care Management Progress Note LINER REPLACER tasked to complete 7000 for [facility]. Length of Stay (Days): 7 GMLOS: 2.9 [facility] 11-18-2024 Note Formatting of this n ote might be different from the original. Care Management Progress Note LINER REPLACER tasked to complete 7000 for [facility]. Length of Stay (Days): 7 GMLOS: 2.9 [facility] 11-18-2024 Note Care Management Prog ress Note LINER REPLACER tasked to complete 7000 for [facility]. Length of Stay (Days): 7 GMLOS: 2.9 [facility] 11-17-2024 Plan of care note Problem: Knowledge Deficit Goal: Patient/family/caregiver demonstrates understanding of disease process, treatment plan, medications, and discharge instructions Outcome: Progressing Problem: Potential for Compromised Skin Integrity Goal: Nutritional status is improving Outcome: Progressing Problem: Potential for Falls Goal: I will remain free of falls Outcome: Progressing [facility] 11-17-2024 Hospital Discharge instructions Joana Haywood MD - 11/17/2024 8:45 AM EDT GENERAL SIGNS AND SYMPTOMS GREEN ZONE: All Clear- Your Symptoms Are Under Control No recurrence of symptoms that led to hospitalization Able to do usual activities No fever No chest pain No shortness of breath This Means You Should: Continue taking your medications as prescribed Continue activity as tolerated Keep all doctor appointments YELLOW ZONE: Caution as Your Health may be Worsening Recurrence of symptoms that led to hospitalization Fever of 100 degrees or higher Increased fatigue or restlessness Intolerant side-effects of medications Uneasy feeling or that something is wrong This Means You Should: Call your doctor for further instructions RED ZONE: Medical Alert Severe or unrelieved shortness of breath at rest Unrelieved chest pain Confusion or you can't think clearly This Means You Should Call 911 Immediately Mae Tipton RN - 11/17/2024 8:46 AM EDT Images from the original note were not included. Continuity of Care Form Patient Name: Margarita Betancourt : 1940 Admit date: 11/11/2024 Discharge date: 11/18/24 Code Status Order: Full Code Advance Directives: N Admitting Physician: Julio Adams MD PCP: JONN KRISHNAMURTHY DO Discharging Nurse: Discharging Hospital Unit/Room#: B2-248/B2-248 B Discharging Unit Phone Number: [phone] Emergency Contact: Extended Emergency Contact Information Primary Emergency Contact: Estefany Betancourt Relation: Other Secondary Emergency Contact: Sandeep Betancourt Relation: Child Past Surgical History: Past Surgical History: Procedure Laterality Date BLADDER SUSPENSION 1984 unknown exact year BLD CARPEL TUNNEL RELEASE (HISTORICAL) Bilateral 1984 unknown exact year HIP FRACTURE SURGERY Right 02/17/2019 HYSTERECTOMY JOINT REPLACEMENT Immunization History: There is no immunization history on file for this patient. Active Problems: Medical Problems Problem List * (Principal) Confusion DVT of lower limb, acute (HCC) Diabetes mellitus type 1, controlled (HCC) Bilateral lower extremity edema Dementia (HCC) Edema of both legs Closed right hip fracture, initial encounter ([facility]) Isolation/Infection: Enhanced Contact Norovirus Nurse Assessment: Last Vital Signs: BP 135/63 (BP Location: Right arm, Patient Position: Sitting) Pulse 80 Temp 36.7 C (98 F) (Temporal) Resp 18 Ht 5' 1 (1.549 m) Wt 163 lb (73.9 kg) SpO2 98% BMI 30.80 kg/m Last documented pain score (0-10 scale): Last Weight: Wt Readings from Last 1 Encounters: 11/12/24 163 lb (73.9 kg) Mental Status: DELTA Patient Mental Status: disoriented and alert IV Access: DELTA IV Access: None Nursing Mobility/ADLs: Walking Total assistance Transfer Total assistance Bathing Minimal assistance Dressing Minimal assistance Toileting Total assistance Feeding Minimal assistance Rod Bending Machine Operator Minimal assistance Med Delivery yes Wound Care Documentation and Therapy: Elimination: Continence: Bowel: no Bladder: no Urinary Catheter: None Colostomy/Ileostomy/Ileal Conduit: None Date of Last BM: 11/18/24 Intake/Output Summary (Last 24 hours) at 11/17/2024 0845 Last data filed at 11/16/2024 1600 Gross per 24 hour Intake 420 ml Output 350 ml Net 70 ml I/O last 3 completed shifts: In: 670 (9.1 mL/kg) [P.O.:670] Out: 1000 (13.5 mL/kg) [Urine:1000 (0.4 mL/kg/hr)] Weight: 73.9 kg Safety Concerns: at risk for falls Impairments/Disabilities: vision and hearing Nutrition Therapy: Current Nutrition Therapy: Oral diet: general Routes of Feeding: oral and none Liquids: no restrictions Daily Fluid Restriction: no Last Modified Barium Swallow with Video (Video Swallowing Test): not done Treatments at the Time of Hospital Discharge: Respiratory Treatments: Oxygen Therapy: is on oxygen at 3 L/min per nasal cannula. Ventilator: No ventilator support Rehab Therapies: physical therapy and occupational therapy Weight Bearing Status/Restrictions: no restriction Other Medical Equipment (for information only, NOT a DME order): walker Other Treatments: Patient's personal belongings (please select all that are sent with patient): glasses RN SIGNATURE: MANAGEMENT/SOCIAL WORK SECTION Inpatient Status Date: 11/11/24 Discharging to Facility/ Agency Name: [facility], Address: [id number] [place] [address] Phone: Fax: Dialysis Facility (if applicable) Name: Address: Dialysis Schedule: Phone: Fax: Law Librarian/Relations Liaison signature: ICIAN SECTION Name: Margarita Betancourt Prognosis: good Condition at Discharge: stable Rehab Potential (if transferring to Rehab): good Recommended Labs or Other Treatments After Discharge: Monitor CBC and BMP post - discharge The individual is being admitted to a nursing facility directly from an [facility] or a unit of a [facility] that is not operated by or licensed by [facility] under section 5119.14 or 5160-3-15.1 5 The individual requires the level of services provided by a nursing facility for the condition for which he or she was treated in the hospital and, Physician Certification: I certify the above information and transfer of Margarita Betancourt is necessary for the continuing treatment of the diagnosis listed and that she requires custodial facility for less than 30 days. Update Admission H&P: No change in H&P - Patient was positive for NORO virus - diarrhea resolved. PHYSICIAN SIGNATURE: The following attachments cannot be sent through Care Everywhere.Delirium (Confusion) ([place] Korean)Norovirus Discharge Instructions (South Korean)documented in this encounter [facility] 11-17-2024 [place] [facility] [place] Progress Note 11/17/2024 Subjective: Admit Date: 11/11/2024 PCP: JONN KRISHNAMURTHY DO Room#: B2-248/[id number] B BRIEF HOSPITAL COURSE: Margarita Betancourt presented to the emergency department on November 11 with nausea, vomiting, and emesis. The emesis was described as coffee-ground in appearance. She also reported dark tarry stools, associated with increased dizziness, lightheadedness, and syncope. The patient has a past medical history significant for dementia, depression, diabetes, hypertension, and asthma. Upon admission, the patient was diagnosed with acute GI bleed, myasthenic chronic anemia, HARINDER mucositis, and dehydration. Initial labs showed elevated WBC at 11.4, creatinine at 1.47, and AC elevated at 35. Subsequent labs revealed a drop in creatinine to 1.32 and hemoglobin to 10.8 from 12.7 at arrival. Iron studies showed low iron at 20, low iron saturation at 8.5, and low iron binding capacity at 236. Urinalysis demonstrated hematuria and proteinuria without signs of infection.Imaging of head: Diminished cerebral volume and evidence of chronic microvascular ischemic changes Neurology consulted and believed altered mental status secondary to GI bleed, and Alzheimer's disease, and ensuring electrolyte managed. Interval History: Feels in good spirits today - no pain or discomfort - diarrhea has resolved. Waiting for placement tomorrow. No headache or discomfort. No abdomen pain . 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 Hypertension LABS: CBC: Recent Labs 11/15/2442711/16/24 0507 11/17/24 0323 WBC 16.8* 14.6* 12.8* RBC 4.61 4.47 4.24 HGB 11.0* 10.8* 10.2* HCT 35.1 34.3* 32.6* MCV 76.1* 76.7* 76.9* RDW 20.0* 19.9* 19.9* PLT 170 160 202 BMP: Recent Labs 11/15/2442711/16/24 0507 11/17/24 0323 NA 134* 139 138 K 3.7 4.0 4.0 CL 104 108* 108* CO2 21* 24 22* BUN 27* 30* 30* CREATININE 1.23* 1.27* 1.18* GLUCOSE 83 76* 72* CALCIUM 8.0* 8.1* 8.1* ANIONGAP 9 7 8 LIVER PROFILE: Recent Labs 11/15/24 0428 11/16/24 0507 11/17/24 0323 AST 27 21 27 ALT 15 17 17 BILITOT 0.4 0.4 0.2 ALKPHOS 63 67 66 PROT 5.6* 5.4* 5.2* PT/INR: No results for input(s): PROTIME, INR in the last 72 hours. CARDIAC ENZYMES: No results for input(s): TROPONINI in the last 72 hours. Procalcitonin: No results found for: PROCAL COVID-19 PCR: No results for input(s): COVID19 in the last 72 hours. Objective: Vitals: BP 135/63 (BP Location: Right arm, Patient Position: Sitting) Pulse 80 Temp 36.7 ?C (98 ?F) (Temporal) Resp 18 Ht 5' 1 (1.549 m) Wt 163 lb (73.9 kg) SpO2 98% BMI 30.80 kg/m? Pulse Ox: SpO2 Av % Min: 95 % Max: 98 % Supplemental O2: O2 Flow Rate (L/min): 4 L/min Physical Exam Physical Examination - General: Appears in no acute distress, - Respiratory: Wearing nasal cannula, Clear lung sounds with slight crackles to bases - Cardiovascular: Heart rate regular with no abnormal murmur on exam. - Abdomen: Soft, some generalized tenderness. - Extremities: Swelling to bilateral legs, non-pitting. - Neuro: Good crystal mounter strength and lower extremity strength, Medications: Scheduled PRN cefTRIAXone, 1,000 mg, IntraVENous, q24h gabapentin, 200 mg, Oral, BID insulin glargine, 18 Units, SubCUTAneous, Nightly insulin lispro, 0-12 Units, SubCUTAneous, TID WC And insulin lispro, 0-12 Units, SubCUTAneous, Nightly Insulin Lispro, 14 Units, SubCUTAneous, TID WC lisinopril, 20 mg, Oral, Daily metoprolol succinate XL, 50 mg, Oral, Daily mirtazapine, 45 mg, Oral, Nightly pantoprazole, 40 mg, Oral, qAM AC Or pantoprazole (ProtoNix) 40 mg in sodium chloride (PF) 0.9 % 10 mL injection, 40 mg, IntraVENous, qAM AC PRN medications: acetaminophen OR acetaminophen, dextrose, dextrose, glucagon (rDNA), glucose, hydrALAZINE, ipratropium-albuterol, ondansetron ODT OR ondansetron, polyethylene glycol (PEG) 3350 Continuous Assessment Data: (CAT1) Reviewed 3 or more notes from different specialty or health system (each=1). (CAT1) Reviewed 3 or more labs/studies ordered by another provider not previously counted (each=1, panels count as 1). (CAT1) Ordered 3 or more new labs and/or studies (each=1, panels count as 1). (LOW: 2x CAT1 or independent historian MOD: 3x CAT1 or 1x CAT3 EXTENSIVE: 3x CAT1 and 1x CAT3) Acute, acute on chronic, unstable/uncontrolled chronic problems/diagnoses: Emesis and diarrhea - coffee ground emesis - Hgb stable - resolved. Found to have noro virus - GI consultations - may need EGD if returns - PPI daily, HOLD eliqui (more content not included)... [facility] 11-16-2024 Note [facility] Hospitalist Progress Note 11/16/2024 Subjective: Admit Date: 11/11/2024 PCP: JONN KRISHNAMURTHY DO Room#: [id number]/[id number] B BRIEF HOSPITAL COURSE: Margarita Betancourt presented to the emergency department on November 11 with nausea, vomiting, and emesis. The emesis was described as coffee-ground in appearance. She also reported dark tarry stools, associated with increased dizziness, lightheadedness, and syncope. The patient has a past medical history significant for dementia, depression, diabetes, hypertension, and asthma. Upon admission, the patient was diagnosed with acute GI bleed, myasthenic chronic anemia, HARINDER mucositis, and dehydration. Initial labs showed elevated WBC at 11.4, creatinine at 1.47, and AC elevated at 35. Subsequent labs revealed a drop in creatinine to 1.32 and hemoglobin to 10.8 from 12.7 at arrival. Iron studies showed low iron at 20, low iron saturation at 8.5, and low iron binding capacity at 236. Urinalysis demonstrated hematuria and proteinuria without signs of infection.Imaging of head: Diminished cerebral volume and evidence of chronic microvascular ischemic changes Neurology consulted and believed altered mental status secondary to GI bleed, and Alzheimer's disease, and ensuring electrolyte managed. Interval History: Feels weak and generally achy today - denies any emesis but feels nauseated - aware that she has juan carlos virus and we are unable to give her anything for her diarrhea. She should be better in several days. Encouraged her to sit at bedside today. 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 Hypertension LABS: CBC: Recent Labs 11/14/2444411/15/2442711/16/24 0507 WBC 8.6 16.8* 14.6* RBC 4.63 4.61 4.47 HGB 11.0* 11.0* 10.8* HCT 35.8 35.1 34.3* MCV 77.3 76.1* 76.7* RDW 19.9* 20.0* 19.9* PLT 151 170 160 BMP: Recent Labs 11/14/2444411/15/248 11/16/24 0507 NA 135* 134* 139 K 4.0 3.7 4.0 CL 102 104 108* CO2 24 21* 24 BUN 22 27* 30* CREATININE 1.08 1.23* 1.27* GLUCOSE 221* 83 76* CALCIUM 7.8* 8.0* 8.1* ANIONGAP 9 9 7 LIVER PROFILE: Recent Labs 11/14/2444411/15/248 11/16/24 0507 AST 32 27 21 ALT 20 15 17 BILITOT 0.3 0.4 0.4 ALKPHOS 68 63 67 PROT 5.6* 5.6* 5.4* PT/INR: No results for input(s): PROTIME, INR in the last 72 hours. CARDIAC ENZYMES: No results for input(s): TROPONINI in the last 72 hours. Procalcitonin: No results found for: PROCAL COVID-19 PCR: No results for input(s): COVID19 in the last 72 hours. Objective: Vitals: BP 153/64 Pulse 73 Temp 37.2 ?C (98.9 ?F) (Temporal) Resp 16 Ht 5' 1 (1.549 m) Wt 163 lb (73.9 kg) SpO2 96% BMI 30.80 kg/m? Pulse Ox: SpO2 Av.7 % Min: 96 % Max: 97 % Supplemental O2: O2 Flow Rate (L/min): 4 L/min Physical Exam Physical Examination - General: Orientated to self, eating breakfast, looks generally unwell and il. - Respiratory: Wearing nasal cannula, Clear lung sounds with slight crackles to bases - Cardiovascular: Heart rate regular with no abnormal murmur on exam. - Abdomen: Soft, some generalized tenderness. - Extremities: Swelling to bilateral legs, non-pitting. - Neuro: Good crystal mounter strength and lower extremity strength, Medications: Scheduled PRN cefTRIAXone, 1,000 mg, IntraVENous, q24h gabapentin, 200 mg, Oral, BID insulin glargine, 18 Units, SubCUTAneous, Nightly insulin lispro, 0-12 Units, SubCUTAneous, TID WC And insulin lispro, 0-12 Units, SubCUTAneous, Nightly Insulin Lispro, 14 Units, SubCUTAneous, TID WC lisinopril, 20 mg, Oral, Daily metoprolol succinate XL, 50 mg, Oral, Daily mirtazapine, 45 mg, Oral, Nightly pantoprazole, 40 mg, Oral, qAM AC Or pantoprazole (ProtoNix) 40 mg in sodium chloride (PF) 0.9 % 10 mL injection, 40 mg, IntraVENous, qAM AC PRN medications: acetaminophen OR acetaminophen, dextrose, dextrose, glucagon (rDNA), glucose, hydrALAZINE, ipratropium-albuterol, ondansetron ODT OR ondansetron, polyethylene glycol (PEG) 3350 Continuous Assessment Data: (CAT1) Reviewed 3 or more notes from different specialty or health system (each=1). (CAT1) Reviewed 3 or more labs/studies ordered by another provider not previously counted (each=1, panels count as 1). (CAT1) Ordered 3 or more new labs and/or studies (each=1, panels count as 1). (LOW: 2x CAT1 or independent historian MOD: 3x CAT1 or 1x CAT3 EXTENSIVE: 3x CAT1 and 1x CAT3) Acute, acute on chronic, unstable/uncontrolled chronic problems/diagnoses: Emesis and diarrhea - coffee ground emesis - Hgb stable - resolved. Found to have noro viru (more content not included)... [facility] 11-16-2024 Plan of care note Problem: Knowledge Deficit Goal: Patient/family/caregiver demonstrates understanding of disease process, treatment plan, medications, and discharge instructions 11/16/2024 06 by Kayley English RN Outcome: Progressing 11/16/2024 0508 by Kayley English RN Outcome: Progressing 11/16/2024 0508 by Kayley English RN Outcome: Progressing Problem: Potential for Compromised Skin Integrity Goal: Skin Integrity is Maintained or Improved 11/16/2024 06 by Kayley English RN Outcome: Progressing 11/16/2024 0508 by Kayley English RN Outcome: Progressing 11/16/2024 050 by Kayley English RN Outcome: Progressing Goal: Nutritional status is improving 11/16/2024 06 by Kayley English RN Outcome: Progressing 11/16/2024 0508 by Kayley English RN Outcome: Progressing 11/16/2024 050 by Kayley English RN Outcome: Progressing Problem: Urinary Incontinence Goal: Perineal skin integrity is maintained or improved 11/16/2024 06 by Kayley English RN Outcome: Progressing 11/16/2024 0508 by Kayley English RN Outcome: Progressing 11/16/2024 0508 by Kayley English RN Outcome: Progressing Problem: Potential for Falls Goal: I will remain free of falls 11/16/2024 06 by Kayley English RN Outcome: Progressing 11/16/2024 0508 by Kayley English RN Outcome: Progressing 11/16/2024 0508 by Kayley English RN Outcome: Progressing Problem: Discharge Barriers Goal: My discharge needs are met 11/16/2024 06 by Kayley English RN Outcome: Progressing 11/16/2024 050 by Kayley English RN Outcome: Progressing 11/16/2024 0508 by Kayley English RN Outcome: Progressing [facility] [employer] 11-16-2024 Plan of care note Problem: Knowledge Deficit Goal: Patient/family/caregiver demonstrates understanding of disease process, treatment plan, medications, and discharge instructions 11/16/2024 0508 by Kayley English RN Outcome: Progressing 11/16/2024 0508 by Kayley English RN Outcome: Progressing Problem: Potential for Compromised Skin Integrity Goal: Skin Integrity is Maintained or Improved 11/16/2024 050 by Kayley English RN Outcome: Progressing 11/16/2024 050 by Kayley English RN Outcome: Progressing Goal: Nutritional status is improving 11/16/2024 0508 by Kayley English RN Outcome: Progressing 11/16/2024 0508 by Kayley English RN Outcome: Progressing Problem: Urinary Incontinence Goal: Perineal skin integrity is maintained or improved 11/16/2024 0508 by Kayley English RN Outcome: Progressing 11/16/2024 0508 by Kayley English RN Outcome: Progressing Problem: Potential for Falls Goal: I will remain free of falls 11/16/2024 0508 by Kayley English RN Outcome: Progressing 11/16/2024 0508 by Kayley English RN Outcome: Progressing Problem: Discharge Barriers Goal: My discharge needs are met 11/16/2024 0508 by Kayley English RN Outcome: Progressing 11/16/2024 0508 by Kayley English RN Outcome: Progressing [facility] [employer] 11-16-2024 Plan of care note Problem: Knowledge Deficit Goal: Patient/family/caregiver demonstrates understanding of disease process, treatment plan, medications, and discharge instructions Outcome: Progressing Problem: Potential for Compromised Skin Integrity Goal: Skin Integrity is Maintained or Improved Outcome: Progressing Goal: Nutritional status is improving Outcome: Progressing Problem: Urinary Incontinence Goal: Perineal skin integrity is maintained or improved Outcome: Progressing Problem: Potential for Falls Goal: I will remain free of falls Outcome: Progressing Problem: Discharge Barriers Goal: My discharge needs are met Outcome: Progressing [facility] 11-15-2024 Note Formatting of this n ote might be different from the original. Care Management Progress Note Spoke with melecio Hopkins and liaison from [facility] and they are both agreeable for pt to go [facility]. Bed will not be available till Monday. updated and made aware. Length of Stay (Days): 4 GMLOS: 2.9 [facility] 11-15-2024 Note Formatting of this n ote might be different from the original. Care Management Progress Note Spoke with melecio Hopkins and liaison from [facility] and they are both agreeable for pt to go to [facility]. Bed will not be available till Monday. updated and made aware. Length of Stay (Days): 4 GMLOS: 2.9 T [facility] 11-15-2024 Note Care Management Prog ress Note Spoke with melecio Hopkins and liaison from [facility] and they are both agreeable for pt to go to [facility]. Bed will not be available till Monday. updated and made aware. Length of Stay (Days): 4 GMLOS: 2.9 [facility] 11-15-2024 Note [facility] Hospitalist Progress Note 11/15/2024 Subjective: Admit Date: 11/11/2024 PCP: JONN KRISHNAMURTHY DO Room#: [id number]/[id number] B BRIEF HOSPITAL COURSE: Margarita Betancourt presented to the emergency department on November 11 with nausea, vomiting, and emesis. The emesis was described as coffee-ground in appearance. She also reported dark tarry stools, associated with increased dizziness, lightheadedness, and syncope. The patient has a past medical history significant for dementia, depression, diabetes, hypertension, and asthma. Upon admission, the patient was diagnosed with acute GI bleed, myasthenic chronic anemia, HARINDER mucositis, and dehydration. Initial labs showed elevated WBC at 11.4, creatinine at 1.47, and AC elevated at 35. Subsequent labs revealed a drop in creatinine to 1.32 and hemoglobin to 10.8 from 12.7 at arrival. Iron studies showed low iron at 20, low iron saturation at 8.5, and low iron binding capacity at 236. Urinalysis demonstrated hematuria and proteinuria without signs of infection.Imaging of head: Diminished cerebral volume and evidence of chronic microvascular ischemic changes Neurology consulted and believed altered mental status secondary to GI bleed, and Alzheimer's disease, and ensuring electrolyte managed. Interval History: In good spirits sitting up in the bed, denies any pain or discomfort. Has a good appetite. No fever or chills, no further cough. . Case and plan discussed with patient and bedside nurse. All questions answered. 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 Hypertension LABS: CBC: Recent Labs 11/13/24 0141 11/14/2444411/15/24427 WBC 6.9 8.6 16.8* RBC 4.39 4.63 4.61 HGB 10.4* 11.0* 11.0* HCT 34.4* 35.8 35.1 MCV 78.4 77.3 76.1* RDW 20.1* 19.9* 20.0* PLT 154 151 170 BMP: Recent Labs 11/13/24 0059 11/14/2444411/15/24427 NA 137 135* 134* K 3.6 4.0 3.7 CL 108* 102 104 CO2 21* 24 21* BUN 25* 22 27* CREATININE 1.02 1.08 1.23* GLUCOSE 140* 221* 83 CALCIUM 7.7* 7.8* 8.0* ANIONGAP 8 9 9 LIVER PROFILE: Recent Labs 11/13/24 0059 11/14/24 0445 11/15/24 0428 AST 24 32 27 ALT 14 20 15 BILITOT 0.2 0.3 0.4 ALKPHOS 65 68 63 PROT 5.3* 5.6* 5.6* PT/INR: No results for input(s): PROTIME, INR in the last 72 hours. CARDIAC ENZYMES: No results for input(s): TROPONINI in the last 72 hours. Procalcitonin: No results found for: PROCAL COVID-19 PCR: No results for input(s): COVID19 in the last 72 hours. Objective: Vitals: BP 142/67 (BP Location: Right arm, Patient Position: Lying) Pulse 82 Temp 37.8 ?C (100.1 ?F) (Temporal) Resp 20 Ht 5' 1 (1.549 m) Wt 163 lb (73.9 kg) SpO2 96% BMI 30.80 kg/m? Pulse Ox: SpO2 Av % Min: 96 % Max: 96 % Supplemental O2: O2 Flow Rate (L/min): 3 L/min Physical Exam Physical Examination - General: Orientated to self, eating breakfast, - Respiratory: Wearing nasal cannula, Clear lung sounds with slight crackles to bases - Cardiovascular: Heart rate regular with no abnormal murmur on exam. - Abdomen: Soft, non-tender. - Extremities: Swelling to bilateral legs, non-pitting. - Neuro: Good crystal mounter strength and lower extremity strength, Medications: Scheduled PRN gabapentin, 200 mg, Oral, BID insulin glargine, 18 Units, SubCUTAneous, Nightly insulin lispro, 0-12 Units, SubCUTAneous, TID WC And insulin lispro, 0-12 Units, SubCUTAneous, Nightly Insulin Lispro, 14 Units, SubCUTAneous, TID WC lisinopril, 20 mg, Oral, Daily metoprolol succinate XL, 50 mg, Oral, Daily mirtazapine, 45 mg, Oral, Nightly pantoprazole, 40 mg, Oral, qAM AC Or pantoprazole (ProtoNix) 40 mg in sodium chloride (PF) 0.9 % 10 mL injection, 40 mg, IntraVENous, qAM AC PRN medications: acetaminophen OR acetaminophen, dextrose, dextrose, glucagon (rDNA), glucose, hydrALAZINE, ipratropium-albuterol, ondansetron ODT OR ondansetron, polyethylene glycol (PEG) 3350 Continuous Assessment Data: (CAT1) Reviewed 3 or more notes from different specialty or health system (each=1). (CAT1) Reviewed 3 or more labs/studies ordered by another provider not previously counted (each=1, panels count as 1). (CAT1) Ordered 3 or more new labs and/or studies (each=1, panels count as 1). (LOW: 2x CAT1 or independent historian MOD: 3x CAT1 or 1x CAT3 EXTENSIVE: 3x CAT1 and 1x CAT3) Acute, acute on chronic, unstable/uncontrolled chronic problems/diagnoses: Emesis and diarrhea - coffee ground emesis - Hgb stable - resolved. - GI consultations - may need EGD if returns - PPI daily, HOLD eliquis, - Daily labs - monitor (more content not included)... [facility] 11-15-2024 Note Formatting of this n ote might be different from the original. Referral placed to [facility] via [facility] per TCC request. Await review and response regarding ability to accept. TCC notified. [facility] 11-15-2024 Note Formatting of this n ote might be different from the original. Referral placed to [facility] via [facility] per TCC request. Await review and response regarding ability to accept. TCC notified. [facility] 03-14-2025 Note Referral placed to [facility] via [facility] per TCC request. Await review and response regarding ability to accept. TCC notified. [facility] 11-15-2024 Note Formatting of this n ote might be different from the original. Care Management Progress Note Checked [place] and son made choices from SNF list that was emailed to him yesterday: 1) [facility], 2) [facility], 3) [facility] 4) [facility] and 5) [place]. LINER REPLACER tasked to make new SNF referrals. Awaiting acceptance. Will not need precert auth as pt is a traditional Medicare Will continue to follow. Length of Stay (Days): 4 GMLOS: 2.9 [employer] [facility] 11-15-2024 Note Formatting of this n ote might be different from the original. Care Management Progress Note Checked [place] and son made choices from SNF list that was emailed to him yesterday: 1) [facility], 2) [facility], 3) [facility] 4) [facility] and 5) [place]. LINER REPLACER tasked to make new SNF referrals. Awaiting acceptance. Will not need precert auth as pt is a traditional Medicare Will continue to follow. Length of Stay (Days): 4 GMLOS: 2.9 [facility] 11-15-2024 Note Care Management Prog ress Note Checked [place] and son made choices from SNF list that was emailed to him yesterday: 1) [facility], 2) [facility], 3) [facility] 4) [facility] and 5) [place]. LINER REPLACER tasked to make new SNF referrals. Awaiting acceptance. Will not need precert auth as pt is a traditional Medicare Will continue to follow. Length of Stay (Days): 4 GMLOS: 2.9 [facility] 11-15-2024 Plan of care note Problem: Knowledge Deficit Goal: Patient/family/caregiver demonstrates understanding of disease process, treatment plan, medications, and discharge instructions 11/15/2024 05 by Kayley English RN Outcome: Progressing 11/15/2024 0446 by Kayley English RN Outcome: Progressing Problem: Potential for Compromised Skin Integrity Goal: Skin Integrity is Maintained or Improved 11/15/2024522 by Kayley English RN Outcome: Progressing 11/15/2024445 by Kayley English RN Outcome: Progressing Goal: Nutritional status is improving 11/15/2024522 by Kayley English RN Outcome: Progressing 11/15/2024445 by Kayley English RN Outcome: Progressing Problem: Urinary Incontinence Goal: Perineal skin integrity is maintained or improved 11/15/2024 05 by Kayley English RN Outcome: Progressing 11/15/2024445 by Kayley English RN Outcome: Progressing Problem: Potential for Falls Goal: I will remain free of falls 11/15/2024522 by Kayley English RN Outcome: Progressing 11/15/2024445 by Kayley English RN Outcome: Progressing Problem: Discharge Barriers Goal: My discharge needs are met 11/15/2024522 by Kayley English RN Outcome: Progressing 11/15/20246 by Kayley English RN Outcome: Progressing [facility] 11-15-2024 Plan of care note Problem: Knowledge Deficit Goal: Patient/family/caregiver demonstrates understanding of disease process, treatment plan, medications, and discharge instructions Outcome: Progressing Problem: Potential for Compromised Skin Integrity Goal: Skin Integrity is Maintained or Improved Outcome: Progressing Goal: Nutritional status is improving Outcome: Progressing Problem: Urinary Incontinence Goal: Perineal skin integrity is maintained or improved Outcome: Progressing Problem: Potential for Falls Goal: I will remain free of falls Outcome: Progressing Problem: Discharge Barriers Goal: My discharge needs are met Outcome: Progressing [facility] 11-14-2024 Note Formatting of this n ote might be different from the original. Care Management Progress Note Called and spoke with pt's melecionisa Sandeep @ [phone] to discuss therapy recs and DC planning. Son states pt was using walker to get around at home and was fairly independent. He states he provides transportation for pt. Updated son that therapy is recommending SNF placement at [place]. SNF choice list emailed to email address he provided [employer] Awaiting decision and choices. Pt is a Traditional medicare and will not need precert auth. Length of Stay (Days): 3 GMLOS: 2.9 [facility] 11-14-2024 Note Formatting of this n ote might be different from the original. Care Management Progress Note Called and spoke with pt's moncho Hopkins @ [phone] to discuss therapy recs and DC planning. Son states pt was using walker to get around at home and was fairly independent. He states he provides transportation for pt. Updated son that therapy is recommending SNF placement at [place]. SNF choice list emailed to email address he provided [email or web address] Awaiting decision and choices. Pt is a Traditional medicare and will not need precert auth. Length of Stay (Days): 3 GMLOS: 2.9 T [facility] 11-14-2024 Note Care Management Prog ress Note Called and spoke with pt's moncho Hopkins @ [phone] to discuss therapy recs and DC planning. Son states pt was using walker to get around at home and was fairly independent. He states he provides transportation for pt. Updated son that therapy is recommending SNF placement at [place]. SNF choice list emailed to email address he provided [email or web address] Awaiting decision and choices. Pt is a Traditional medicare and will not need precert auth. Length of Stay (Days): 3 GMLOS: 2.9 [facility] 11-14-2024 Note [facility] [place] Progress Note 11/14/2024 Subjective: Admit Date: 11/11/2024 PCP: JONN KRISHNAMURTHY DO Room#: B2-250/B2-250 B BRIEF HOSPITAL COURSE: Margarita Betancourt presented to the emergency department on November 11 with nausea, vomiting, and emesis. The emesis was described as coffee-ground in appearance. She also reported dark tarry stools, associated with increased dizziness, lightheadedness, and syncope. The patient has a past medical history significant for dementia, depression, diabetes, hypertension, and asthma. Upon admission, the patient was diagnosed with acute GI bleed, myasthenic chronic anemia, HARINDER mucositis, and dehydration. Initial labs showed elevated WBC at 11.4, creatinine at 1.47, and AC elevated at 35. Subsequent labs revealed a drop in creatinine to 1.32 and hemoglobin to 10.8 from 12.7 at arrival. Iron studies showed low iron at 20, low iron saturation at 8.5, and low iron binding capacity at 236. Urinalysis demonstrated hematuria and proteinuria without signs of infection.Imaging of head: Diminished cerebral volume and evidence of chronic microvascular ischemic changes Neurology consulted and believed altered mental status secondary to GI bleed, and Alzheimer's disease, and ensuring electrolyte managed. Interval History: Patient denied any blood movement on evaluation today, denies any pain anywhere with no weakness of numbness, no headache or dizziness. Denies any chest pain. She is complaing of having increased diaarhea. Discussed with staff how she was previous constipated and we did not want to give anything to slow it down as we just need to get everything out of her system. 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 Will continue to monitor . Case and plan discussed with patient and bedside nurse. All questions answered. 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 Hypertension LABS: CBC: Recent Labs 11/12/2451311/13/2414011/14/24444 WBC 7.6 6.9 8.6 RBC 4.52 4.39 4.63 HGB 10.8* 10.4* 11.0* HCT 35.1 34.4* 35.8 MCV 77.7 78.4 77.3 RDW 20.4* 20.1* 19.9* PLT 171 154 151 BMP: Recent Labs 11/12/2451311/13/245811/14/24444 NA 137 137 135* K 3.7 3.6 4.0 CL 107 108* 102 CO2 22* 21* 24 BUN 34* 25* 22 CREATININE 1.32* 1.02 1.08 GLUCOSE 190* 140* 221* CALCIUM 8.3* 7.7* 7.8* ANIONGAP 8 8 9 LIVER PROFILE: Recent Labs 11/11/24205711/13/245811/14/24444 AST 35* 24 32 ALT 17 14 20 BILITOT 0.4 0.2 0.3 ALKPHOS 82 65 68 PROT 7.0 5.3* 5.6* PT/INR: No results for input(s): PROTIME, INR in the last 72 hours. CARDIAC ENZYMES: No results for input(s): TROPONINI in the last 72 hours. Procalcitonin: No results found for: PROCAL COVID-19 PCR: No results for input(s): COVID19 in the last 72 hours. Objective: Vitals: BP 138/62 (BP Location: Left arm, Patient Position: Lying) Pulse 91 Temp 36.7 ?C (98.1 ?F) (Temporal) Resp 20 Ht 5' 1 (1.549 m) Wt 163 lb (73.9 kg) SpO2 94% BMI 30.80 kg/m? Pulse Ox: SpO2 Av % Min: 94 % Max: 97 % Supplemental O2: O2 Flow Rate (L/min): 3 L/min Physical Exam Physical Examination - General: Sleeping, awake easily- disorientated - only orientated to self. - Respiratory: Wearing nasal cannula, Clear lung sounds with slight crackles to bases - Cardiovascular: Heart rate regular with no abnormal murmur on exam. - Abdomen: Soft, non-tender. - Extremities: Swelling to bilateral legs, non-pitting. - Neuro: Good crystal mounter strength and lower extremity strength, Medications: Scheduled PRN gabapentin, 200 mg, Oral, BID insulin glargine, 18 Units, SubCUTAneous, Nightly insulin lispro, 0-12 Units, SubCUTAneous, TID WC And insulin lispro, 0-12 Units, SubCUTAneous, Nightly Insulin Lispro, 14 Units, SubCUTAneous, TID WC lisinopril, 20 mg, Oral, Daily metoprolol succinate XL, 50 mg, Oral, Daily mirtazapine, 45 mg, Oral, Nightly pantoprazole, 40 mg, Oral, qAM AC Or pantoprazole (ProtoNix) 40 mg in sodium chloride (PF) 0.9 % 10 mL injection, 40 mg, IntraVENous, qAM AC PRN medications: acetaminophen OR acetaminophen, dextrose, dextrose, glucagon (rDNA), glucose, hydrALAZINE, ipratropium-albuterol, ondansetron ODT OR ondansetron, polyethylene glycol (PEG) 3350 Continuous Assessment Data: (CAT1) Reviewed 3 or more notes from different specialty or health system (each=1). (CAT1) Reviewed 3 or more la (more content not included)... [facility] 11-14-2024 Plan of care note Problem: Knowledge Deficit Goal: Patient/family/caregiver demonstrates understanding of disease process, treatment plan, medications, and discharge instructions 11/14/2024 0452 by Kayley English RN Outcome: Progressing 11/14/2024 0450 by Kayley English RN Outcome: Progressing Problem: Potential for Compromised Skin Integrity Goal: Skin Integrity is Maintained or Improved 11/14/2024 0452 by Kayley English RN Outcome: Progressing 11/14/2024 0450 by Kayley English RN Outcome: Progressing Goal: Nutritional status is improving 11/14/2024 0452 by Kayley English RN Outcome: Progressing 11/14/2024 0450 by Kayley English RN Outcome: Progressing Problem: Urinary Incontinence Goal: Perineal skin integrity is maintained or improved 11/14/2024 0452 by Kayley English RN Outcome: Progressing 11/14/2024 0450 by Kayley English RN Outcome: Progressing Problem: Potential for Falls Goal: I will remain free of falls 11/14/2024 0452 by Kayley English RN Outcome: Progressing 11/14/2024 0450 by Kayley English RN Outcome: Progressing Problem: Discharge Barriers Goal: My discharge needs are met 11/14/2024 045 by Kayley English RN Outcome: Progressing 11/14/2024 0450 by Kayley English RN Outcome: Progressing [facility] 11-14-2024 Plan of care note Problem: Knowledge Deficit Goal: Patient/family/caregiver demonstrates understanding of disease process, treatment plan, medications, and discharge instructions Outcome: Progressing Problem: Potential for Compromised Skin Integrity Goal: Skin Integrity is Maintained or Improved Outcome: Progressing Goal: Nutritional status is improving Outcome: Progressing Problem: Urinary Incontinence Goal: Perineal skin integrity is maintained or improved Outcome: Progressing Problem: Potential for Falls Goal: I will remain free of falls Outcome: Progressing Problem: Discharge Barriers Goal: My discharge needs are met Outcome: Progressing [facility] 11-13-2024 Plan of care note Problem: Knowledge Deficit Goal: Patient/family/caregiver demonstrates understanding of disease process, treatment plan, medications, and discharge instructions Outcome: Progressing Problem: Potential for Compromised Skin Integrity Goal: Skin Integrity is Maintained or Improved Outcome: Progressing Goal: Nutritional status is improving Outcome: Progressing Problem: Urinary Incontinence Goal: Perineal skin integrity is maintained or improved Outcome: Progressing Problem: Potential for Falls Goal: I will remain free of falls Outcome: Progressing Problem: Discharge Barriers Goal: My discharge needs are met Outcome: Progressing [facility] 11-13-2024 Note Formatting of this n ote might be different from the original. Care Management Progress Note Spoke with pt at bedside, introduced self and explained role. Pt alert to self . A little forgetful. Pt state she stays with son and daughter in law, Told this TCC that she wears home O2. Tried to call Estefany DIL @[phone]. Not able to reach. HIPAA compliant VM left to call back to discuss DC planning. PT/OT recommending SNF at DC. Awaiting family to call back to discuss DC planning. Length of Stay (Days): 2 GMLOS: No GMLOS Documented [facility] 11-13-2024 Note Formatting of this n ote might be different from the original. Care Management Progress Note Spoke with pt at bedside, introduced self and explained role. Pt alert to self . A little forgetful. Pt state she stays with son and daughter in law, Told this TCC that she wears home O2. Tried to call Estefany DIL @[phone]. Not able to reach. HIPAA compliant VM left to call back to discuss DC planning. PT/OT recommending SNF at DC. Awaiting family to call back to discuss DC planning. Length of Stay (Days): 2 GMLOS: No GMLOS Documented [facility] 11-13-2024 Note Care Management Prog ress Note Spoke with pt at bedside, introduced self and explained role. Pt alert to self . A little forgetful. Pt state she stays with son and daughter in law, Told this TCC that she wears home O2. Tried to call Estefany BREWSTER @[phone]. Not able to reach. HIPAA compliant VM left to call back to discuss DC planning. PT/OT recommending SNF at DC. Awaiting family to call back to discuss DC planning. Length of Stay (Days): 2 GMLOS: No GMLOS Documented [facility] 11-13-2024 Note PHYSICAL THERAPY [facility] Initial Evaluation Name/MRN: Margarita Betancourt ([id number]) Evaluation Date: 11/13/2024 Date of : 1940 Admission Date: 11/11/2024 8:32 PM Age: 84 y.o. Room/Bed: B2-250/B2-250 B Discharge Recommendation: [facility]pc Facility Equipment Needed: No Assessment IMPRESSION: Pt arrived to [facility] on 11/11/24 with complaints of emesis and stool discoloration. Pt presents with decreased functional mobility, decreased strength, decreased safety awareness, and decreased balance. Pt's subjective information was gathered from the patient and none other; it has yet to be determined if pt is an accurate historian. Pt states that prior to admission she was independent with functional mobility requiring the use of a no assistive device. Upon evaluation, pt was mod A for bed mobility and mod A for transfers. Pt refused to attempt ambulation this date d/t lack of motivation primary and fatigue. Pt has medical history as indicated below that contributes to their clinical presentation. Pt would benefit from skilled therapeutic intervention to address functional limitations while they are admitted to the hospital with a recommendation of SNF upon DC. Admitting Diagnosis: confusion Prognosis: fair Performance Deficits /Impairments: Decreased Functional Mobility, Decreased ADL status, Decreased Strength, Decreased Safety Awareness, Decreased Endurance, Decreased Balance, and Decreased Cognition Decision Making: Medium Complexity Subjective Pt was awake and reluctant to physical therapy upon arrive. Pt indicated complaints of headache and no indication of pain. Denies any further symptoms. Indicates lack of motivation I don't want to yet expresses desire to go home. Pain: Pt denies any current pain. Pt on 2L of supplemental O2 upon arrival Bed alarm was not in place upon arrival, bed alarm was in place at end of session. Past Medical History: Past Medical History: Diagnosis Date Asthma Blood clot in vein Dementia ([facility]) Depression Diabetes mellitus (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) 02/16/2019 Bilateral lower extremity edema 07/31/2018 Edema of both legs 07/31/2018 Dementia ([facility]) 04/17/2018 DVT of lower limb, acute ([facility]) 07/03/2016 Diabetes mellitus type 1, controlled ([facility]) 07/03/2016 Medical Precautions: No active isolations Proper PPE donned/doffed in accordance with facility standards. Fall Risk: Castle Fall Risk Score: 70 (High Risk) Precautions/Restrictions: Lines/Drains/Airways: pt currently on 2L of supplemental O2 , catheter Family/Caregiver Present: none Overall Cognitive Status: Exceptions - Arousal/alertness: delayed responses to stimuli and inconsistent responses to stimuli - Following commands: inconsistently follows commands - Safety judgement: decreased awareness of need for safety - Problem solving: assistance required to generate solutions, assistance required to implement solutions, assistance required to identify errors made, and assistance required to correct errors made - Insights: decreased awareness of deficits and decreased understanding of level of function required to return home safely. - Initiation: requires cues for some - Sequencing: requires cues for some Pt's primary limitation with cognition at this time is lack of motivation. She demonstrated difficulty with problem solving and judgements for safety including denying help retrieving glasses needed at all times that she states were in the room. The functional mobility that she demonstrated today was mildly less that she is capable of indicated by her refusal to initiate muscle contraction during LE management in bed without assistance. Additionally, the pt's abilities as an accurate historian of social history have yet to be determined. Overall Orientation Status: Oriented to Place, Oriented to Person, and Disoriented to Time - pt was able to decipher year following dichotomous choice between 1994 and 2024 Vision: wears glasses at all times and and are NOT being used during the eval, pt states her glasses are in the room yet denies help to retrieve them Hearing: normal Social/Functional History Pt's subjective information was gathered from the patient and none other. Pt's abilities as an accurate historian have yet to be determined. Patient admitted from home. Lives With: Son and daughter in law Type of Home: single family home Home Layout: Single Level Home Home Access: Level Entry Bathr (more content not included)... [facility] 11-13-2024 Note OCCUPATIONAL THERAPY [facility] Initial Evaluation Name/MRN: Margarita Betancourt ([id number]) Evaluation Date: 11/13/2024 Date of : 1940 Admission Date: 11/11/2024 8:32 PM Age: 84 y.o. Room/Bed: B2-250/B2-250 B Discharge Recommendation: [facility]pc Facility Assessment IMPRESSION: Pt admitted to ED on 11/11 with confusion, vomiting, and diarrhea. Pt with known h/o GI bleed that is recommended for non-op tx. PMH significant for dementia. Prior to admission, pt lived with family and performed ADLs and mobility independently. Upon eval, pt required Min-Mod A for bed mobility, CGA for transfers, Min A for mobility, and Min A for ADLs. Pt would benefit from skilled OT services in order to increase safety and independence in occupational tasks. Recommend SNF upon DC. Admitting Diagnosis: confusion Performance Deficits /Impairments: Decreased Functional Mobility, Decreased ADL status, Decreased Strength, Decreased Endurance, Decreased Balance, and Decreased Cognition Prognosis: Good Decision Making: Medium Complexity Subjective Pt very pleasant and agreeable to therapy eval but mildly confused during the session. Pain: Pt denies any current pain. 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) 02/16/2019 Bilateral lower extremity edema 07/31/2018 Edema of both legs 07/31/2018 Dementia ([facility]) 04/17/2018 DVT of lower limb, acute ([facility]) 07/03/2016 Diabetes mellitus type 1, controlled ([facility]) 07/03/2016 Medical Precautions: No active isolations Proper PPE donned/doffed in accordance with facility standards. Fall Risk: Castle Fall Risk Score: 70 (High Risk) Precautions/Restrictions: N/A Family/Caregiver Present: none Overall Cognitive Status: Exceptions - Following commands: follows one step commands with increased time and follows one step commands with repetition - Memory: decreased recall of recent events and decreased short term memory - Problem solving: assistance required to generate solutions, assistance required to implement solutions, assistance required to identify errors made, assistance required to correct errors made, and decreased awareness of errors - Insights: decreased awareness of deficits - Initiation: requires cues for some - Sequencing: requires cues for some Overall Orientation Status: Oriented to Person, Disoriented to Situation, and Disoriented to Time Social/Functional History Pt provided her own social functional history, however she is a questionable historian at this time. Patient admitted from home. Lives With: Son and daughter in law Type of Home: single family home Home Layout: Single Level Home Home Access: Level Entry Bathroom Shower/Tub: Walk in Shower Toilet: Handicap Height Home Equipment: none Homemaking Responsibilities: Independent Receives Help From: Other Active Claims Supervisor: Yes Prior Level of Function Prior Level of ADL Function: Independent Prior Level of Mobility: Independent; Device: None Prior Level of Transfers: Independent Objective ADLs LE Dressing: Min Assist Toileting: SBA Pt able to simulate bathroom level toileting with SBA. She did not need to void and currently has a haji catheter in place. Pt attempted to don/doff her R sock while sitting at EOB. She used a hip hinge technique and was able to manage her sock chcf down her foot but required assist to mange it fully off and put it back on. Upper Extremity Assessment AROM: WFL PROM: Not assessed this session Strength: Exceptions: mild generalized weakness. > 3/5 strength observed for UB during functional activities Bed Mobility Supine to sit: Min Assist Sit to supine: Mod Assist Scooting: Min Assist Pt able to complete supine to sit bed mobility with Min A for WAREHOUSE SHIPPING CLERK. Pt required additional time to complete with HOB elevated and heavy use of bed rail. Min A to square hips and scoot to EOB. Pt then required mod A for B LE management to return to supine. Pt denied dizziness with positional changes. Transfers/Mobility Sit to stand: Contact Guard Stand to sit: Contact Guard Toilet: Contact Guard Standing balance: Contact Guard Functional mobility: Min Assist Pt stood from EOB to FWW with CGA. She completed ~ 4 lateral side steps to the R with Min A. Pt then walked to/from the bathroom with Min A for walker management. Pt complete a toilet transfer w (more content not included)... [facility] 11-13-2024 Note Hospitalist Progress Note 11/13/2024 Subjective: Admit Date: 11/11/2024 PCP: JONN KRISHNAMURTHY DO Room#: B2-250/B2-250 B BRIEF HOSPITAL COURSE: Margarita Betancourt presented to the emergency department on November 11 with nausea, vomiting, and emesis. The emesis was described as coffee-ground in appearance. She also reported dark tarry stools, associated with increased dizziness, lightheadedness, and syncope. The patient has a past medical history significant for dementia, depression, diabetes, hypertension, and asthma. Upon admission, the patient was diagnosed with acute GI bleed, myasthenic chronic anemia, HARINDER mucositis, and dehydration. Initial labs showed elevated WBC at 11.4, creatinine at 1.47, and AC elevated at 35. Subsequent labs revealed a drop in creatinine to 1.32 and hemoglobin to 10.8 from 12.7 at arrival. Iron studies showed low iron at 20, low iron saturation at 8.5, and low iron binding capacity at 236. Urinalysis demonstrated hematuria and proteinuria without signs of infection.Imaging of head: Diminished cerebral volume and evidence of chronic microvascular ischemic changes Neurology consulted and believed altered mental status secondary to GI bleed, and Alzheimer's disease, and ensuring electrolyte managed. Interval History: Sleeping but wakes when called easily. Feels more alert today and denies any further nausea or black stools at this time. No fever or chills. Still not aware of where she is. No further concerns expressed. States she ate breakfast but neighbor denied her eating anything. Neighbor did say she was coughing a bit more today which patient denied . Case and plan discussed with patient and bedside nurse. All questions answered. 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 Hypertension LABS: CBC: Recent Labs 11/11/24205711/12/2451311/13/24 014 WBC 11.4* 7.6 6.9 RBC 5.29* 4.52 4.39 HGB 12.7 10.8* 10.4* HCT 40.3 35.1 34.4* MCV 76.2* 77.7 78.4 RDW 20.5* 20.4* 20.1* PLT 190 171 154 BMP: Recent Labs 11/11/24205711/12/2451311/13/24 0059 NA 138 137 137 K 5.1 3.7 3.6 CL 108* 107 108* CO2 20* 22* 21* BUN 36* 34* 25* CREATININE 1.47* 1.32* 1.02 GLUCOSE 85 190* 140* CALCIUM 8.9 8.3* 7.7* ANIONGAP 10 8 8 LIVER PROFILE: Recent Labs 11/11/24205711/13/24 0059 AST 35* 24 ALT 17 14 BILITOT 0.4 0.2 ALKPHOS 82 65 PROT 7.0 5.3* PT/INR: No results for input(s): PROTIME, INR in the last 72 hours. CARDIAC ENZYMES: No results for input(s): TROPONINI in the last 72 hours. Procalcitonin: No results found for: PROCAL COVID-19 PCR: No results for input(s): COVID19 in the last 72 hours. Objective: Vitals: BP (!) 175/90 (BP Location: Right arm) Pulse 71 Temp 36.3 ?C (97.3 ?F) (Temporal) Resp 16 Ht 5' 1 (1.549 m) Wt 163 lb (73.9 kg) SpO2 98% BMI 30.80 kg/m? Pulse Ox: SpO2 Av.7 % Min: 93 % Max: 99 % Supplemental O2: O2 Flow Rate (L/min): 2 L/min Physical Exam Physical Examination - General: Sleeping, awake easily- disorientated - only orientated to self. - Respiratory: Wearing nasal cannula, decreased air entry to bases bilaterally. Coughing noted. - Cardiovascular: Heart rate regular with no abnormal murmur on exam. - Abdomen: Soft, non-tender. - Extremities: Swelling to bilateral legs, non-pitting. Right leg appears slightly reddened and warm to touch. Medications: Scheduled PRN gabapentin, 200 mg, Oral, BID insulin glargine, 18 Units, SubCUTAneous, Nightly insulin lispro, 0-12 Units, SubCUTAneous, TID WC And insulin lispro, 0-12 Units, SubCUTAneous, Nightly Insulin Lispro, 14 Units, SubCUTAneous, TID WC lisinopril, 20 mg, Oral, Daily metoprolol succinate XL, 50 mg, Oral, Daily mirtazapine, 45 mg, Oral, Nightly pantoprazole, 40 mg, Oral, qAM AC Or pantoprazole (ProtoNix) 40 mg in sodium chloride (PF) 0.9 % 10 mL injection, 40 mg, IntraVENous, qAM AC PRN medications: acetaminophen OR acetaminophen, dextrose, dextrose, glucagon (rDNA), glucose, ipratropium-albuterol, ondansetron ODT OR ondansetron, polyethylene glycol (PEG) 3350 Continuous Assessment Data: (CAT1) Reviewed 3 or more notes from different specialty or health system (each=1). (CAT1) Reviewed 3 or more labs/studies ordered by another provider not previously counted (each=1, panels count as 1). (CAT1) Ordered 3 or more new labs and/or studies (each=1, panels count as 1). (LOW: 2x CAT1 or independent historian MOD: 3x CAT1 or 1x CAT3 EXTENSIVE: 3x CAT1 and 1x CAT3) Acute, acute on chronic, unstable/uncontrolled chronic (more content not included)... [facility] 11-13-2024 Plan of care note Problem: Knowledge Deficit Goal: Patient/family/caregiver demonstrates understanding of disease process, treatment plan, medications, and discharge instructions Outcome: Progressing Problem: Potential for Compromised Skin Integrity Goal: Skin Integrity is Maintained or Improved Outcome: Progressing Goal: Nutritional status is improving Outcome: Progressing Problem: Urinary Incontinence Goal: Perineal skin integrity is maintained or improved Outcome: Progressing Problem: Potential for Falls Goal: I will remain free of falls Outcome: Progressing Problem: Discharge Barriers Goal: My discharge needs are met Outcome: Progressing [facility] 11-12-2024 Consult note Associated Order (s): IP CONSULT TO NEUROLOGY Images from the original note were not included. NEUROLOGY INITIAL CONSULTATION DATE/TIME: TUESDAY, NOVEMBER 12, 2024 PATIENT's NAME: MARGARITA BETANCOURT DATE OF : [birth year] AGE: 84 GENDER: Female ROOM: 250/B PHYSICIAN REQUESTING CONSULT: Dr. Haywood NEUROLOGIST: Radha Blank MD DATE OF ADMISSION: 11-12-23 REASON FOR NEUROLOGY CONSULTATION: 'Altered mental status' HISTORY OF PRESENT ILLNESS ED HISTORY OF PRESENT ILLINESS Margarita Betancourt is an 84-year-old woman who was admitted through the Emergency Department at [facility] on 11-12-23 with complaints of increasing confusion ED vitals: BP: 151/65 HR: 86 RR: 16 O2 sat: 94 % HT: 6-1 ins Wt.: 163 Lbs. BMI: 31 (Obese Class: II) Ms. Betancourt is not able to give me a neurologic history. SYMPTOM PROFILE Onset of symptoms: Not established. Description of symptoms: Episodes of confusion Subjective Confusion and memory issues Ms. Betancourt was brought to the hospital due to confusion, although she cannot recall the incident or the confusion itself. She struggles to remember recent events, including who visited her today or yesterday. She is unable to remember being confused, which led to her hospital admission. The primary concern is her confusion and memory issues, which have significantly impacted her daily life. Misc: Ms. Betancourt does not live in a correction; she lives at home. She has two children, a son and a daughter, who live nearby. She feels closer to her son. REVIEW OF SYSTEMS NEUROLOGY Aphasia Cognitive/Memory impairment CVA Dysesthesia Facial asymmetry Falls, unintended Fasciculation Gait disorder Headache/migraine Hyperesthesia Hypoesthesia Insomnia Involuntary movement/Tremor Major neurocognitive disorder (dementia) Myasthenia Myopathy Near-syncope Neuropathy Paresthesia/dysesthesia Restless leg syndrome Seizures Syncope Tremor Vestibular balance dysfunction ABNORMAL NEGATIVE CARDIOVASCULAR Angina Claudication Coronary artery disease ECG, abnormal Heart attack Heart murmur Hypertension Irregular heart rhythm/fibrillation Palpitation Peripheral edema, pitting Peripheral vascular disease Thrombophlebitis ABNORMAL NEGATIVE DERMATOLOGY Bruising Diop Cancer Edema, non-pitting Pruritus Rash Wound ABNORMAL NEGATIVE EAR, NOSE, & THROAT Dental caries Dizziness Dysphagia Dysphonia Otalgia Sensorineural hearing loss Sinusitis Tinnitus Vertigo/lightheadedness ABNORMAL NEGATIVE ENDOCRINE Cold allodynia Diabetes mellitus Hypercalcemia Hyperglycemia Parathyroid disease Pituitary dysfunction Polydipsia Polyuria Proptosis Thyroid disease Uhthoff's phenomenon ABNORMAL NEGATIVE GASTROINTESTINAL Abdominal bloating Abdominal Pain Anorexia Changes in bowel habit Cholecystitis Cholelithiasis Constipation Diarrhea Dysphagia Food intolerance GERD Hematochezia Irritable bowel syndrome Nausea/Vomiting Pyrosis ABNORMAL NEGATIVE GENERAL Activity alteration Adiposity-based chronic disease (ABCD) Cachexia Fatigue Pyrexia Sleep hyperhidrosis Weight Gain ABNORMAL NEGATIVE GENITOURINARY Acute/subacute/chronic kidney injury Benign prostatic hyperplasia Cystitis Dysuria Hematuria Nephrolithiasis/urolithiasis Nocturia Overactive bladder Pollakiuria Pyelonephritis Urethritis Urinary incontinence/OAB Urinary retention acute/chronic Urinary tract infection, recurrent ABNORMAL NEGATIVE MUSCULOSKELETAL Arthritis Arthralgia Back pain Back stiffness Cervicalgia Muscle cramps/spasm Myalgia Myopathy Nuchal rigidity ABNORMAL NEGATIVE NECK NEGATIVE OPHTHALMOLOGY Cataract Diplopia Keratoconjunctivitis sicca Oscillopsia Nystagmus Photophobia Visual impairment ABNORMAL NEGATIVE PSYCHIATRY/PSYCHOLOGY Anxiety Behavioral disorder Bipolar disorder Depression Hallucination Hypersomnia Insomnia Irritability/agitation Mood disorder Sleep disturbance Suicidal Ideation PTSD ABNORMAL NEGATIVE PULMONARY Chest x-ray, abnormal Dyspnea Emphysema/COPD Obstructive sleep apnea syndrome (OSAS) Pulmonary hypertension Tussis Wheezing/Asthma ABNORMAL NEGATIVE SLEEP NEGATIVE PAST MEDICAL/SURGERY HISTORY SIGNIFICANT PAST MEDICAL HISTORY NEUROLOGY Late onset Alzheimer's with behavioral disturbance Chronic insomnia CVA Fatigue CARDIOLOGY Blood clotting disorder Hypertension Thrombophlebitis ENDOCRINOLOGY Adult-onset type II diabetes GASTROENTEROLOGY Obesity GERD GENITOURINARY Recurrent UTI ORTHOPEDIC Lumbar spondylosis Osteoarthritis of both hips and RIGHT knee PSYCHIATRY/PSYCHOLOGY Depression PULMONARY Asthma Dyspnea Generalized anxiety RHEUMATOLOGY Generalized arthritis SUPPLEMENTAL Hyperlipidemia SIGNIFICANT PAST SURGERY HISTORY NEUROLOGY None GYNECOLOGY Hysterectomy ORTHOPEDIC Hip fracture surgery, RIGHT Joint replacement MEDICATION/DRUG/OTC REVIEW NEURO-RELEVANT OUTPATIENT TREATMENT NEUROLOGY None GYNECOLOGY Hysterectomy ORTHOPEDIC RIGHT hip fracture Joint replacement NEURO-RELEVANT INPATIENT TREATMENT NEUROLOGY Gabapentin 300 mg bid CARDIOLOGY Metoprolol 50 mg daily Lisinopril 20 mg daily Magnesium 30 mg daily Potassium 99 daily Eliquis 5 mg ENDOCRINOLOGY Insulin/Humalog/Lantus GASTROENTEROLOGY Omeprazole 40 mg daily Colace 100 daily NEUROMUSCULAR Oxycodone 5/325 mg prn PSYCHIATRY Citalopram 40 mg Quetiapine 12.5 mg qhs PULMONARY Albuterol inhaler SUPPLEMENTAL Centrum Silver Magnesium hydroxide 450 mg suspension Coenzyme Q 10 with calcium and vitamin D DRUG ALLERGIES Meperidine SOCIAL HISTORY Currently smoking: No Currently vaping: No Current alcohol use: No Current caffeine use: Not known. Current non-medication drug use: No ADDITIONAL: RELEVANT FAMILY HISTORY Family history is significant: Asthma, heart attack, heart disease. RELEVANT NEURODIAGNOSTIC LAB RESULTS ELECTROLYTES PANEL Sodium: 137 Potassium: 3.7 RENAL PANEL BUN: 34 Creatinine: 1.32 GFR: 39.9 Phosphorus: Not available Total protein: 7.0 Albumin: 3.0 Calcium: 8.3 Magnesium: Pending DIABETES PANEL Glucose: 190 HbA1c: Pending Beta hydroxybutyrate: Not available HEPATIC PANEL Alkaline phosphatase: 82 AST: 35 ALT: 17 Total Bilirubin: 0.4 Direct Bilirubin: Not available Lipase: Not available Lactic acid : Not available LIPID PANEL Triglyceride: HDL: LDL: Cholesterol: CBC WBC: 7.6 RBC: 4.52 Hemoglobin: 10.8 Hematocrit: 35.1 MCV: 77.7 MCH: 23.9 MCHC: 30.8 Platelet count: 171 ANEMIA PANEL Vitamin B12: Folate: Methylmalonic acid: Not available Homocysteine: Not available Thiamine (B1) : Not available Total iron: 20 Ferritin: 27 Iron binding capacity: 236 Vitamin D: Not available THYROID PANEL TSH: fT4: fT3: AUTOIMMUNE PANEL Sed Rate: Not available CRP: Not available MIHAI: Not available Complement C3: Not available MISCELLANEOUS : URINALYSIS: Moderate bacteria, leukocytes esterase: 75 Nitrite: Not available URINE C/S: : Would be helpful. SARS CoV-2: Not available VIRAL PANEL (Influenza A/B, RSV): Not available CT HEAD No acute intracranial lesion. Diffuse cortical atrophy. Chronic small vessel ischemic changes EKG Sinus rhythm (84/min) Atrial premature complex TRANSTHORACIC ECHOCARDIOGRAM LEFT ventricular ejection fraction: NEUROLOGICAL EXAMINATION Observation Ms. Betancourt is lying comfortably in bed, in no acute distress. General appearance She appears to be her stated age. Her state of physical health: Normal Level of cooperation Pleasant: Agreeable manners, & behavior. Cooperative: YES Attentive: Inattentive with poor comprehension Not Orientation: Time, place, reason for admission. When I asked her who visited recently she said you (referring to me). Facial expression Appears perplexed Speech Normal: In rate, tone, volume & content. CAROTID AUSCULTATION: RIGHT: Bruit: No LEFT: Bruit: No CEREBELLAR FUNCTION No tremor. No extraneous movements. No dysmetria. Stance/Gait: Not evaluated CRANIAL NERVES II-XII : Unable to evaluate due to poor comprehension NEUROMUSCULAR Tone: Normal for age. Wasting of the upper extremities: Present in the upper extremities Wasting of the lower extremities: Present in the lower extremities Distal extremities edema: None POWER UPPER: For his age Handgrip R: Grade 5/5 L: Grade 5/5 POWER LOWER: For his age Foot/ankle Dorsi-Flexion R: Grade 5/5 L: Grade 5/5 Foot/ankle Plantar-Flexion R: Grade 5/5 L: Grade 5/5 DEEP TENDON REFLEXES Deferred SENSORY Deferred NIH Stroke Score: ? Not accurate due to poor comprehension from severe dementia. MEDICAL DECISION MAKING PRIMARY NEUROLOGICAL COMPLAINT Altered mental status. PRIMARY NEUROLOGICAL DIAGNOSIS E/M/C ETIOLOGY E86.1 Hypovolemia-Dehydration (volume depletion). N39.0 Urinary tract infection G30.1 Alzheimer's disease with late onset MANIFESTATION R41.82 Altered mental status, unspecified change in mental status COMORBIDITY D64.9 Chronic anemia K29.41: Chronic gastritis with bleeding NEUROLOGICAL DIAGNOSIS COMPLEXITIES (D/D) No clinical or neuroimaging evidence of acute cerebrovascular event. CLINICAL PRESENTATION & DECISION ANALYSIS/DIFFERENTIAL DIAGNOSIS ASSESSMENT Severe dementia with multiple mental status changes. Etiology unknown. Possible urinary tract infection gastric bleed and would anemia. The primary presenting complaint is confusion and memory issues. Differential diagnosis includes Severe dementia, Possible urinary tract infection, Medication effect Dehydration with electrolyte imbalance. NEUROLOGY TREATMENT RECOMMENDATION/GOALS NEURO PHARMACOTHERAPY NEURO NON-PHARMACOTHERAPY Plan Contact Ms. Betancourt's son to gather additional information regarding her condition and to assess any changes or concerns related to her severe dementia and confusion. Discuss the treatment plan for managing severe dementia, including potential medications. Consider the adverse effects of medications such as cholinesterase inhibitors, which may include nausea, diarrhea, and insomnia. Address any potential drug-drug interactions with current medications. TREATMENT COMPLEXITIES/ADVERSE EFFECT(S) DRUG-DRUG INTERACTION None PROGNOSIS FOR NEUROLOGIC RECOVERY Not established at this time. NEUROLOGY REEVALUATION WITH DR. Blank TIMELINE: I will reevaluate Ms. Betancourt on November 12, during Neurology Rounds. GAMEROOM TECHNICIAN I devoted 75 minutes to comprehensively reviewing all current medical records and relevant diagnostic tests during this evaluation. It was essential for me to engage in a [id number] interview and conduct a focused neurological examination to gain a better understanding of Ms. Betancourt's neurologic complaints. REFERRING PHYSICIAN: I updated the referring physician, & the treatment team with my Medical Decision Making. Please note This report was created using [employer] voice recognition system, [email or web address], and with Ms. Betancourt's approval, Swapnil Mcneil-. While I have made every effort to ensure accurate and prompt mechanical design engineer facilities, and a thorough editorial review was conducted, it is important to acknowledge that some subtle contextual errors may still be present. These errors can arise from the misrecognition of spoken words, which is not uncommon when integrating human voice with advanced digital technologies. These interaction can sometimes lead to misunderstandings or misinterpretations in the text. If you notice any errors, discrepancies, or inconsistencies in this report, please feel free to let me know. Your feedback is valuable in helping me maintain the quality and accuracy of the information presented. Thanks for your understanding and cooperation. Radha Blank MD Comprehensive Neurologist [phone] [facility] Work Phone: 11-12-2024 Consult note Associated Order (s): IP CONSULT TO NEUROLOGY Images from the original note were not included. NEUROLOGY INITIAL CONSULTATION DATE/TIME: TUESDAY, NOVEMBER 12, 2024 PATIENT's NAME: MARGARITA BETANCOURT DATE OF : 40 AGE: 84 GENDER: Female ROOM: 250/B PHYSICIAN REQUESTING CONSULT: Dr. Haywood NEUROLOGIST: Radha Blank MD DATE OF ADMISSION: 11-12-23 REASON FOR NEUROLOGY CONSULTATION: 'Altered mental status' HISTORY OF PRESENT ILLNESS ED HISTORY OF PRESENT ILLINESS Margarita Betancourt is an 84-year-old woman who was admitted through the Emergency Department at [facility] on 11-12-23 with complaints of increasing confusion ED vitals: BP: 151/65 HR: 86 RR: 16 O2 sat: 94 % HT: 6-1 ins Wt.: 163 Lbs. BMI: 31 (Obese Class: II) Ms. Betancourt is not able to give me a neurologic history. SYMPTOM PROFILE Onset of symptoms: Not established. Description of symptoms: Episodes of confusion Subjective Confusion and memory issues Ms. Betancourt was brought to the hospital due to confusion, although she cannot recall the incident or the confusion itself. She struggles to remember recent events, including who visited her today or yesterday. She is unable to remember being confused, which led to her hospital admission. The primary concern is her confusion and memory issues, which have significantly impacted her daily life. Misc: Ms. Betancourt does not live in a correction; she lives at home. She has two children, a son and a daughter, who live nearby. She feels closer to her son. REVIEW OF SYSTEMS NEUROLOGY Aphasia Cognitive/Memory impairment CVA Dysesthesia Facial asymmetry Falls, unintended Fasciculation Gait disorder Headache/migraine Hyperesthesia Hypoesthesia Insomnia Involuntary movement/Tremor Major neurocognitive disorder (dementia) Myasthenia Myopathy Near-syncope Neuropathy Paresthesia/dysesthesia Restless leg syndrome Seizures Syncope Tremor Vestibular balance dysfunction ABNORMAL NEGATIVE CARDIOVASCULAR Angina Claudication Coronary artery disease ECG, abnormal Heart attack Heart murmur Hypertension Irregular heart rhythm/fibrillation Palpitation Peripheral edema, pitting Peripheral vascular disease Thrombophlebitis ABNORMAL NEGATIVE DERMATOLOGY Bruising Diop Cancer Edema, non-pitting Pruritus Rash Wound ABNORMAL NEGATIVE EAR, NOSE, & THROAT Dental caries Dizziness Dysphagia Dysphonia Otalgia Sensorineural hearing loss Sinusitis Tinnitus Vertigo/lightheadedness ABNORMAL NEGATIVE ENDOCRINE Cold allodynia Diabetes mellitus Hypercalcemia Hyperglycemia Parathyroid disease Pituitary dysfunction Polydipsia Polyuria Proptosis Thyroid disease Uhthoff's phenomenon ABNORMAL NEGATIVE GASTROINTESTINAL Abdominal bloating Abdominal Pain Anorexia Changes in bowel habit Cholecystitis Cholelithiasis Constipation Diarrhea Dysphagia Food intolerance GERD Hematochezia Irritable bowel syndrome Nausea/Vomiting Pyrosis ABNORMAL NEGATIVE GENERAL Activity alteration Adiposity-based chronic disease (ABCD) Cachexia Fatigue Pyrexia Sleep hyperhidrosis Weight Gain ABNORMAL NEGATIVE GENITOURINARY Acute/subacute/chronic kidney injury Benign prostatic hyperplasia Cystitis Dysuria Hematuria Nephrolithiasis/urolithiasis Nocturia Overactive bladder Pollakiuria Pyelonephritis Urethritis Urinary incontinence/OAB Urinary retention acute/chronic Urinary tract infection, recurrent ABNORMAL NEGATIVE MUSCULOSKELETAL Arthritis Arthralgia Back pain Back stiffness Cervicalgia Muscle cramps/spasm Myalgia Myopathy Nuchal rigidity ABNORMAL NEGATIVE NECK NEGATIVE OPHTHALMOLOGY Cataract Diplopia Keratoconjunctivitis sicca Oscillopsia Nystagmus Photophobia Visual impairment ABNORMAL NEGATIVE PSYCHIATRY/PSYCHOLOGY Anxiety Behavioral disorder Bipolar disorder Depression Hallucination Hypersomnia Insomnia Irritability/agitation Mood disorder Sleep disturbance Suicidal Ideation PTSD ABNORMAL NEGATIVE PULMONARY Chest x-ray, abnormal Dyspnea Emphysema/COPD Obstructive sleep apnea syndrome (OSAS) Pulmonary hypertension Tussis Wheezing/Asthma ABNORMAL NEGATIVE SLEEP NEGATIVE PAST MEDICAL/SURGERY HISTORY SIGNIFICANT PAST MEDICAL HISTORY NEUROLOGY Late onset Alzheimer's with behavioral disturbance Chronic insomnia CVA Fatigue CARDIOLOGY Blood clotting disorder Hypertension Thrombophlebitis ENDOCRINOLOGY Adult-onset type II diabetes GASTROENTEROLOGY Obesity GERD GENITOURINARY Recurrent UTI ORTHOPEDIC Lumbar spondylosis Osteoarthritis of both hips and RIGHT knee PSYCHIATRY/PSYCHOLOGY Depression PULMONARY Asthma Dyspnea Generalized anxiety RHEUMATOLOGY Generalized arthritis SUPPLEMENTAL Hyperlipidemia SIGNIFICANT PAST SURGERY HISTORY NEUROLOGY None GYNECOLOGY Hysterectomy ORTHOPEDIC Hip fracture surgery, RIGHT Joint replacement MEDICATION/DRUG/OTC REVIEW NEURO-RELEVANT OUTPATIENT TREATMENT NEUROLOGY None GYNECOLOGY Hysterectomy ORTHOPEDIC RIGHT hip fracture Joint replacement NEURO-RELEVANT INPATIENT TREATMENT NEUROLOGY Gabapentin 300 mg bid CARDIOLOGY Metoprolol 50 mg daily Lisinopril 20 mg daily Magnesium 30 mg daily Potassium 99 daily Eliquis 5 mg ENDOCRINOLOGY Insulin/Humalog/Lantus GASTROENTEROLOGY Omeprazole 40 mg daily Colace 100 daily NEUROMUSCULAR Oxycodone 5/325 mg prn PSYCHIATRY Citalopram 40 mg Quetiapine 12.5 mg qhs PULMONARY Albuterol inhaler SUPPLEMENTAL Centrum Silver Magnesium hydroxide 450 mg suspension Coenzyme Q 10 with calcium and vitamin D DRUG ALLERGIES Meperidine SOCIAL HISTORY Currently smoking: No Currently vaping: No Current alcohol use: No Current caffeine use: Not known. Current non-medication drug use: No ADDITIONAL: RELEVANT FAMILY HISTORY Family history is significant: Asthma, heart attack, heart disease. RELEVANT NEURODIAGNOSTIC LAB RESULTS ELECTROLYTES PANEL Sodium: 137 Potassium: 3.7 RENAL PANEL BUN: 34 Creatinine: 1.32 GFR: 39.9 Phosphorus: Not available Total protein: 7.0 Albumin: 3.0 Calcium: 8.3 Magnesium: Pending DIABETES PANEL Glucose: 190 HbA1c: Pending Beta hydroxybutyrate: Not available HEPATIC PANEL Alkaline phosphatase: 82 AST: 35 ALT: 17 Total Bilirubin: 0.4 Direct Bilirubin: Not available Lipase: Not available Lactic acid : Not available LIPID PANEL Triglyceride: HDL: LDL: Cholesterol: CBC WBC: 7.6 RBC: 4.52 Hemoglobin: 10.8 Hematocrit: 35.1 MCV: 77.7 MCH: 23.9 MCHC: 30.8 Platelet count: 171 ANEMIA PANEL Vitamin B12: Folate: Methylmalonic acid: Not available Homocysteine: Not available Thiamine (B1) : Not available Total iron: 20 Ferritin: 27 Iron binding capacity: 236 Vitamin D: Not available THYROID PANEL TSH: fT4: fT3: AUTOIMMUNE PANEL Sed Rate: Not available CRP: Not available MIHAI: Not available Complement C3: Not available MISCELLANEOUS : URINALYSIS: Moderate bacteria, leukocytes esterase: 75 Nitrite: Not available URINE C/S: : Would be helpful. SARS CoV-2: Not available VIRAL PANEL (Influenza A/B, RSV): Not available CT HEAD No acute intracranial lesion. Diffuse cortical atrophy. Chronic small vessel ischemic changes EKG Sinus rhythm (84/min) Atrial premature complex TRANSTHORACIC ECHOCARDIOGRAM LEFT ventricular ejection fraction: NEUROLOGICAL EXAMINATION Observation Ms. Betancourt is lying comfortably in bed, in no acute distress. General appearance She appears to be her stated age. Her state of physical health: Normal Level of cooperation Pleasant: Agreeable manners, & behavior. Cooperative: YES Attentive: Inattentive with poor comprehension Not Orientation: Time, place, reason for admission. When I asked her who visited recently she said you (referring to me). Facial expression Appears perplexed Speech Normal: In rate, tone, volume & content. CAROTID AUSCULTATION: RIGHT: Bruit: No LEFT: Bruit: No CEREBELLAR FUNCTION No tremor. No extraneous movements. No dysmetria. Stance/Gait: Not evaluated CRANIAL NERVES II-XII : Unable to evaluate due to poor comprehension NEUROMUSCULAR Tone: Normal for age. Wasting of the upper extremities: Present in the upper extremities Wasting of the lower extremities: Present in the lower extremities Distal extremities edema: None POWER UPPER: For his age Handgrip R: Grade 5/5 L: Grade 5/5 POWER LOWER: For his age Foot/ankle Dorsi-Flexion R: Grade 5/5 L: Grade 5/5 Foot/ankle Plantar-Flexion R: Grade 5/5 L: Grade 5/5 DEEP TENDON REFLEXES Deferred SENSORY Deferred NIH Stroke Score: ? Not accurate due to poor comprehension from severe dementia. MEDICAL DECISION MAKING PRIMARY NEUROLOGICAL COMPLAINT Altered mental status. PRIMARY NEUROLOGICAL DIAGNOSIS E/M/C ETIOLOGY E86.1 Hypovolemia-Dehydration (volume depletion). N39.0 Urinary tract infection G30.1 Alzheimer's disease with late onset MANIFESTATION R41.82 Altered mental status, unspecified change in mental status COMORBIDITY D64.9 Chronic anemia K29.41: Chronic gastritis with bleeding NEUROLOGICAL DIAGNOSIS COMPLEXITIES (D/D) No clinical or neuroimaging evidence of acute cerebrovascular event. CLINICAL PRESENTATION & DECISION ANALYSIS/DIFFERENTIAL DIAGNOSIS ASSESSMENT Severe dementia with multiple mental status changes. Etiology unknown. Possible urinary tract infection gastric bleed and would anemia. The primary presenting complaint is confusion and memory issues. Differential diagnosis includes Severe dementia, Possible urinary tract infection, Medication effect Dehydration with electrolyte imbalance. NEUROLOGY TREATMENT RECOMMENDATION/GOALS NEURO PHARMACOTHERAPY NEURO NON-PHARMACOTHERAPY Plan Contact Ms. Betancourt's son to gather additional information regarding her condition and to assess any changes or concerns related to her severe dementia and confusion. Discuss the treatment plan for managing severe dementia, including potential medications. Consider the adverse effects of medications such as cholinesterase inhibitors, which may include nausea, diarrhea, and insomnia. Address any potential drug-drug interactions with current medications. TREATMENT COMPLEXITIES/ADVERSE EFFECT(S) DRUG-DRUG INTERACTION None PROGNOSIS FOR NEUROLOGIC RECOVERY Not established at this time. NEUROLOGY REEVALUATION WITH DR. Blank TIMELINE: I will reevaluate Ms. Betancourt on November 12, during Neurology Rounds. GAMEROOM TECHNICIAN I devoted 75 minutes to comprehensively reviewing all current medical records and relevant diagnostic tests during this evaluation. It was essential for me to engage in a [id number] interview and conduct a focused neurological examination to gain a better understanding of Ms. Betancourt's neurologic complaints. REFERRING PHYSICIAN: I updated the referring physician, & the treatment team with my Medical Decision Making. Please note This report was created using [employer] recognition system, [email or web address], and with Ms. Betancourt's approval, [employer] While I have made every effort to ensure accurate and prompt mechanical design engineer facilities, and a thorough editorial review was conducted, it is important to acknowledge that some subtle contextual errors may still be present. These errors can arise from the misrecognition of spoken words, which is not uncommon when integrating human voice with advanced digital technologies. These interaction can sometimes lead to misunderstandings or misinterpretations in the text. If you notice any errors, discrepancies, or inconsistencies in this report, please feel free to let me know. Your feedback is valuable in helping me maintain the quality and accuracy of the information presented. Thanks for your understanding and cooperation. Radha Blank MD Comprehensive Neurologist [phone] Associated Order(s): Inpatient consult to Gastroenterology Images from the original note were not included. GI CONSULTATION Patient: Margarita Betancourt : 1940 Primary Care Physician: JONN KRISHNAMURTHY DO Inpatient consult to Gastroenterology Consult performed by: Chao Pal MD Consult ordered by: Julio Adams MD CHIEF COMPLAINT: coffee ground emesis HISTORY OF PRESENT ILLNESS: 84 yo female with PMH as below whom GI is consulted for coffee ground emesis. History obtained from family member at bedside and chart review. Presented with a single episode of coffee ground emesis at home. May have happened in the past. On eliquis for history of a clot but this has been held in the hospital. She has not had any additional episodes of hematemesis while in the hospital. No previous EGD on record. Vital signs have been stable. Labs significant for Hgb 10.8 (12.7), WBC 7.6 (11.4), Plt 171 (190), ferritin 27. 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 She has never used smokeless tobacco. ETOH: reports no history of alcohol use. DRUGS: reports no history of drug use. Medications: Prior to Admission medications Medication Sig Start Date End Date Taking? Authorizing Provider apixaban (Eliquis) 5 MG tablet Take 5 mg by mouth daily. Historical Provider, B Complex Vitamins (B COMPLEX PO) Take 1 Dose by mouth daily. Historical Provider, CALCIUM-CHOLECALCIFEROL PO Take 1 Dose by mouth daily. Historical Provider, Coenzyme Q10 (CO Q 10 PO) Take 1 Dose by mouth daily. Historical ProviderMD docusate sodium (Colace) 100 MG capsule Take 100 mg by mouth Daily as needed for constipation. Historical ProviderMD gabapentin (Neurontin) 300 MG capsule Take 300 mg by mouth 2 times daily. Historical ProviderMD glucose blood test strip 1 strip by Other route 4 times daily. Use as instructed Historical ProviderMD hydrOXYzine pamoate (Vistaril) 25 MG capsule Take 25 mg by mouth Nightly. Historical ProviderMD insulin glargine (Lantus) 100 UNIT/ML injection Inject 18 Units under the skin Nightly. Historical ProviderMD insulin lispro (HumaLOG) 100 UNIT/ML pen injection Inject 14 Units under the skin 3 times daily (with meals). Historical ProviderMD ipratropium-albuterol (Duo-Neb) 0.5-2.5 mg/3 mL nebulizer solution Take 3 mL by nebulization 4 times daily. Historical ProviderMD lisinopril 20 MG tablet Take 20 mg by mouth daily. Historical ProviderMD magnesium 30 MG tablet Take 30 mg by mouth daily. Historical ProviderMD metoprolol succinate XL (Toprol-XL) 50 MG 24 hr tablet Take 50 mg by mouth daily. Do not crush or chew. Historical ProviderMD mirtazapine (Remeron) 45 MG tablet Take 45 mg by mouth Nightly. Historical ProviderMD Multiple Vitamins-Minerals (CENTRUM SILVER ADULT 50+ PO) Take 1 Dose by mouth daily. Historical ProviderMD NON FORMULARY Take 1 Dose by mouth as needed. Historical ProviderMD omeprazole (PriLOSEC) [address] capsule Take 40 mg by mouth 2 times daily (before meals). Do not crush or chew. Historical ProviderMD ondansetron ODT (Zofran-ODT) 4 MG disintegrating tablet Take 4 mg by mouth every 8 hours as needed for nausea or vomiting. Historical ProviderMD oxyCODONE-acetaminophen (Percocet) 5-325 MG tablet 1 tablet Daily as needed for severe pain (7-10). Historical ProviderMD Prodigy Lancets 28G misc 1 Lancet. 4 times daily. Historical ProviderMD QUEtiapine (SEROquel) 25 MG tablet Take 25 mg by mouth Nightly. 1/2 tab qhs Historical ProviderMD QUEtiapine (SEROquel) 25 MG tablet Take 25 mg by mouth Nightly as needed (insomnia). 1/2 tab Historical Provider, @MEDED@ ALLERGIES: Allergies Allergen Reactions Meperidine Unknown and Nausea And Vomiting REVIEW OF SYSTEMS: No fever, chills, or sweats. Normal appetite and weight. No GIMENEZ, visual disturbance, eye pain, jaundice, sore throat or mouth ulcers. No skin rash or itching. No CP, SOB, LEAL, cough or wheeze. No urinary frequency, urgency, hematuria, or dysuria. No myalgia, arthralgia, or joint swelling. No weakness, numbness, or confusion. GI per HPI. No polyuria, polydipsia, heat or cold intolerance. PHYSICAL EXAM: VS: BP 148/63 Pulse 59 Temp 36.6 C (97.9 F) (Temporal) Resp 16 Ht 5' 1 (1.549 m) Wt 163 lb (73.9 kg) SpO2 99% BMI 30.80 kg/m Body mass index is 30.8 kg/m . GENERAL: Pleasant and NAD. HEENT: NCAT, PERRLA, EOMI, Scleral anicteric. CV: RRR, NL S1/S2, no murmurs. LUNGS: CTA b/l. No W/R/R. Abdomen: + BS, soft, non-tender and non-distended. No rebound or guarding. Neurologic: A&O x 1, Non-focal. Psych: Normal affect and speech. LABS AND IMAGING: Recent blood work and relevant radiologic and endoscopic studies were reviewed and discussed with the patient. Old records have not been requested. CBC: Recent Labs 11/11/24205711/12/24 0514 WBC 11.4* 7.6 HGB 12.7 10.8* HCT 40.3 35.1 PLT 190 171 HEPATIC: Recent Labs 11/11/242057 AST 35* ALT 17 BILITOT 0.4 ALKPHOS 82 LIPASE/AMYLASE: Recent Labs 11/11/242057 LIPASE 6 LACTATE: No lab exists for component: LACTA BNP: No results for input(s): BNP in the last 72 hours. INR: No results for input(s): INR in the last 72 hours. POCT glucose meter Result Date: 11/12/2024 Performed by: [facility], [address] [facility] [id number] CLIA ID: [id number] ECG 12 lead Sinus rhythm Atrial premature complex Borderline repolarization abnormality Electronically Signed On 11-12-2024 05:38:47 EDT by Ruth Matias POCT glucose meter Result Date: 11/12/2024 Performed by: [facility], [address] [facility] [address] CLIA ID: [id number] POCT glucose meter Result Date: 11/12/2024 Performed by: [facility], [address] [place] [id number] CLIA ID: [id number] CT head wo IV contrast Result Date: 11/12/2024 Patient Name: MARGARITA BETANCOURT : 1940 Exam Date/Time: 11/12/2024 00:15 Procedure: CT HEAD WO IV CONTRAST Ordering Provider: ADAMS ISH Reason For Exam: Mental status change, unknown cause CT HEAD: CLINICAL INDICATION: Mental status change, unknown cause. TECHNIQUE: Transaxial CT sequence performed through the head with 3 mm reconstruction. Sagittal and Coronal reconstruction images included. Dose reduction employed with automated exposure control. COMPARISON: CT head from 02/16/2019. MRI brain from 03/11/2017 FINDINGS: Ventricles and Extra-axial spaces: Normal in size and morphology for the patient's age. No abnormal extracerebral collection identified. Cerebral and cerebellar parenchyma: Periventricular low attenuation areas bilaterally, corresponding to chronic microvascular ischemic change. No additional focal mass lesion or evidence for acute infarct throughout the cerebrum or cerebellum. Hemorrhage: None Brainstem: Normal Visualized Paranasal sinuses: Normal. Mastoid air cells: Normal Visualized Orbits: Normal Calvarium and skull base: Normal Other: Atherosclerotic calcification within the distal internal carotid arteries Diminished cerebral volume and evidence of chronic microvascular ischemic change without acute intracranial abnormality. Report Dictated on Electronically Signed By: Ruslan Barnes MD Electronically Signed Date/Time: 11/12/2024 12:34 AM EDT IMPRESSION: Coffee ground emesis - single episode at home (none while in hospital), VSS, Hgb 10.8 (slightly down from admission but likely due to fluids), Eliquis held History of blood clot - on Eliquis (currently held) Dementia RECOMMENDATIONS: Continue to monitor for additional hematemesis/trend Hgb Continue PPI once daily Continue to hold Eliquis Spoke with family member at bedside and given age, stable Hgb and no additional episodes of bleeding, will hold off on EGD at this time If clinical status changes, would consider EGD then. documented in this encounter [facility] 11-12-2024 Note NEUROLOGY INITIAL CO NSULTATION DATE/TIME: TUESDAY, NOVEMBER 12, 2024 PATIENT's NAME: MARGARITA BETANCOURT DATE OF : [birth year] AGE: 84 GENDER: Female ROOM: [facility]/B PHYSICIAN REQUESTING CONSULT: Dr. Haywood NEUROLOGIST: Radha Blank MD DATE OF ADMISSION: 11-12-23 REASON FOR NEUROLOGY CONSULTATION: 'Altered mental status' HISTORY OF PRESENT ILLNESS ED HISTORY OF PRESENT ILLINESS Margarita Betancourt is an 84-year-old woman who was admitted through the Emergency Department at [facility] on 11-12-23 with complaints of increasing confusion ED vitals: BP: 151/65 HR: 86 RR: 16 O2 sat: 94 % HT: 6-1 ins Wt.: 163 Lbs. BMI: 31 (Obese Class: II) Ms. Betancourt is not able to give me a neurologic history. SYMPTOM PROFILE Onset of symptoms: Not established. Description of symptoms: Episodes of confusion Subjective Confusion and memory issues Ms. Betancourt was brought to the hospital due to confusion, although she cannot recall the incident or the confusion itself. She struggles to remember recent events, including who visited her today or yesterday. She is unable to remember being confused, which led to her hospital admission. The primary concern is her confusion and memory issues, which have significantly impacted her daily life. Misc: Ms. Betancourt does not live in a correction; she lives at home. She has two children, a son and a daughter, who live nearby. She feels closer to her son. REVIEW OF SYSTEMS NEUROLOGY Aphasia Cognitive/Memory impairment CVA Dysesthesia Facial asymmetry Falls, unintended Fasciculation Gait disorder Headache/migraine Hyperesthesia Hypoesthesia Insomnia Involuntary movement/Tremor Major neurocognitive disorder (dementia) Myasthenia Myopathy Near-syncope Neuropathy Paresthesia/dysesthesia Restless leg syndrome Seizures Syncope Tremor Vestibular balance dysfunction ABNORMAL NEGATIVE CARDIOVASCULAR Angina Claudication Coronary artery disease ECG, abnormal Heart attack Heart murmur Hypertension Irregular heart rhythm/fibrillation Palpitation Peripheral edema, pitting Peripheral vascular disease Thrombophlebitis ABNORMAL NEGATIVE DERMATOLOGY Bruising Diop Cancer Edema, non-pitting Pruritus Rash Wound ABNORMAL NEGATIVE EAR, NOSE, & THROAT Dental caries Dizziness Dysphagia Dysphonia Otalgia Sensorineural hearing loss Sinusitis Tinnitus Vertigo/lightheadedness ABNORMAL NEGATIVE ENDOCRINE Cold allodynia Diabetes mellitus Hypercalcemia Hyperglycemia Parathyroid disease Pituitary dysfunction Polydipsia Polyuria Proptosis Thyroid disease Uhthoff's phenomenon ABNORMAL NEGATIVE GASTROINTESTINAL Abdominal bloating Abdominal Pain Anorexia Changes in bowel habit Cholecystitis Cholelithiasis Constipation Diarrhea Dysphagia Food intolerance GERD Hematochezia Irritable bowel syndrome Nausea/Vomiting Pyrosis ABNORMAL NEGATIVE GENERAL Activity alteration Adiposity-based chronic disease (ABCD) Cachexia Fatigue Pyrexia Sleep hyperhidrosis Weight Gain ABNORMAL NEGATIVE GENITOURINARY Acute/subacute/chronic kidney injury Benign prostatic hyperplasia Cystitis Dysuria Hematuria Nephrolithiasis/urolithiasis Nocturia Overactive bladder Pollakiuria Pyelonephritis Urethritis Urinary incontinence/OAB Urinary retention acute/chronic Urinary tract infection, recurrent ABNORMAL NEGATIVE MUSCULOSKELETAL Arthritis Arthralgia Back pain Back stiffness Cervicalgia Muscle cramps/spasm Myalgia Myopathy Nuchal rigidity ABNORMAL NEGATIVE NECK NEGATIVE OPHTHALMOLOGY Cataract Diplopia Keratoconjunctivitis sicca Oscillopsia Nystagmus Photophobia Visual impairment ABNORMAL NEGATIVE PSYCHIATRY/PSYCHOLOGY Anxiety Behavioral disorder Bipolar disorder Depression Hallucination Hypersomnia Insomnia Irritability/agitation Mood disorder Sleep disturbance Suicidal Ideation PTSD ABNORMAL NEGATIVE PULMONARY Chest x-ray, abnormal Dyspnea Emphysema/COPD Obstructive sleep apnea syndrome (OSAS) Pulmonary hypertension Tussis Wheezing/Asthma ABNORMAL NEGATIVE SLEEP NEGATIVE PAST MEDICAL/SURGERY HISTORY SIGNIFICANT PAST MEDICAL HISTORY NEUROLOGY Late onset Alzheimer's with behavioral disturbance Chronic insomnia CVA Fatigue CARDIOLOGY Blood clotting disorder Hypertension Thrombophlebitis ENDOCRINOLOGY Adult-onset type II diabetes GASTROENTEROLOGY Obesity GERD GENITOURINARY Recurrent UTI ORTHOPEDIC Lumbar spondylosis Osteoarthritis of both hips and RIGHT knee PSYCHIATRY/PSYCHOLOGY Depression PULMONARY Asthma Dyspnea Generalized anxiety RHEUMATOLOGY Generalized arthritis SUPPLEMENTAL Hyperlipidemia SIGNIFICANT PAST SURGERY HISTORY NEUROLOGY None GYNECOLOGY Hysterectomy ORTHOPEDIC Hip fracture surgery, RIGHT Joint (more content not included)... [facility] 11-12-2024 Note Formatting of this n ote might be different from the original. Cyber Crime Investigator following case for Discharge Needs. [facility] 11-12-2024 Note Formatting of this n ote might be different from the original. Cyber Crime Investigator following case for Discharge Needs. [facility] 11-12-2024 Telephone encounter Note Margarita's daughter called just to let Dr. Krishnamurthy know that Plkatie is in the hospital and not doing well, Kidney's seem to be failing along with confusion and vomiting. [facility] 11-12-2024 Miscellaneous Notes Margarita's daughter called just to let Dr. Krisnhamurthy know that Plkatie is in the hospital and not doing well, Kidney's seem to be failing along with confusion and vomiting. Kelly Biggs ----- Message from Parisa Tucker sent at 11/12/2024 11:27 AM EDT ----- [address] [place] [address]/FAMP AG DOHERSON/Jonn Krishnamurthy/caller is requesting a call back Subject Line Format: Medicine / Jonn Krishnamurthy DO / caller is requesting a call back Select Department Name For [place] Routing Assistance: [facility] [place] => [facility] [place] APPT CTR MARCEL SPICER [[id number]] = Patient: Margarita Betancourt Date of : 1940 Primary Care Provider: Jonn Krishnamurthy DO The reason I am contacting the office is: Call Back - Patient is requesting a call back from Jonn Krishnamurthy about Estefany, the patient's [id number], called to say that the patient is not feeling well. Yesterday she said she called 911 and the patient was taken to the hospital. She said the patient was very confused, not speaking, and was vomiting. She said the patient is currently admitted to [facility]. Estefany requested a call back to discuss the patient's condition please. Person calling if other than patient: Estefany Best contact number: [phone] Thank you, Parisa Cid November 12, 2024 11:27 AM documented in this encounter [facility] 11-12-2024 Telephone encounter Note ----- Message from Parisa Tucker sent at 11/12/2024 11:27 AM EDT ----- [address] [place] [address]/FAMP AG DOJOSETODIEGO/Jonn Krishnamutrhy/caller is requesting a call back Subject Line Format: Medicine / Jonn Krishnamurthy DO / caller is requesting a call back Select Department Name For Pool Routing Assistance: [facility] [place] => [facility] [place] APPT [facility] TRAIGE SPICER [[id number]] = Patient: Margarita Betancourt Date of : 1940 Primary Care Provider: Jonn Krishnamurthy DO The reason I am contacting the office is: Call Back - Patient is requesting a call back from Jonn Krishnamurthy about Estefany, the patient's [id number], called to say that the patient is not feeling well. Yesterday she said she called 911 and the patient was taken to the hospital. She said the patient was very confused, not speaking, and was vomiting. She said the patient is currently admitted to [facility]. Estefany requested a call back to discuss the patient's condition please. Person calling if other than patient: Estefany Best contact number: [phone] Thank you, Parisa Cid November 12, 2024 11:27 AM [facility] 11-12-2024 Consult note Associated Order (s): Inpatient consult to Gastroenterology Images from the original note were not included. GI CONSULTATION Patient: Margarita Betancourt : 1940 Primary Care Physician: JONN KRISHNAMURTHY DO Inpatient consult to Gastroenterology Consult performed by: Chao Pal MD Consult ordered by: Julio Adams MD CHIEF COMPLAINT: coffee ground emesis HISTORY OF PRESENT ILLNESS: 84 yo female with PMH as below whom GI is consulted for coffee ground emesis. History obtained from family member at bedside and chart review. Presented with a single episode of coffee ground emesis at home. May have happened in the past. On eliquis for history of a clot but this has been held in the hospital. She has not had any additional episodes of hematemesis while in the hospital. No previous EGD on record. Vital signs have been stable. Labs significant for Hgb 10.8 (12.7), WBC 7.6 (11.4), Plt 171 (190), ferritin 27. 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 She has never used smokeless tobacco. ETOH: reports no history of alcohol use. DRUGS: reports no history of drug use. Medications: Prior to Admission medications Medication Sig Start Date End Date Taking? Authorizing Provider apixaban (Eliquis) 5 MG tablet Take 5 mg by mouth daily. Historical ProviderMD B Complex Vitamins (B COMPLEX PO) Take 1 Dose by mouth daily. Historical ProviderMD CALCIUM-CHOLECALCIFEROL PO Take 1 Dose by mouth daily. Historical Provider, Coenzyme Q10 (CO Q 10 PO) Take 1 Dose by mouth daily. Historical Provider, docusate sodium (Colace) 100 MG capsule Take 100 mg by mouth Daily as needed for constipation. Historical Provider, gabapentin (Neurontin) 300 MG capsule Take 300 mg by mouth 2 times daily. Historical Provider, glucose blood test strip 1 strip by Other route 4 times daily. Use as instructed Historical ProviderMD hydrOXYzine pamoate (Vistaril) 25 MG capsule Take 25 mg by mouth Nightly. Historical Provider, insulin glargine (Lantus) 100 UNIT/ML injection Inject 18 Units under the skin Nightly. Historical Provider, insulin lispro (HumaLOG) 100 UNIT/ML pen injection Inject 14 Units under the skin 3 times daily (with meals). Historical ProviderMD ipratropium-albuterol (Duo-Neb) 0.5-2.5 mg/3 mL nebulizer solution Take 3 mL by nebulization 4 times daily. Historical ProviderMD lisinopril 20 MG tablet Take 20 mg by mouth daily. Historical Provider, magnesium 30 MG tablet Take 30 mg by mouth daily. Historical Provider, metoprolol succinate XL (Toprol-XL) 50 MG 24 hr tablet Take 50 mg by mouth daily. Do not crush or chew. Historical ProviderMD mirtazapine (Remeron) 45 MG tablet Take 45 mg by mouth Nightly. Historical ProviderMD Multiple Vitamins-Minerals (CENTRUM SILVER ADULT 50+ PO) Take 1 Dose by mouth daily. Historical ProviderMD NON FORMULARY Take 1 Dose by mouth as needed. Historical Provider, omeprazole (PriLOSEC) [address] capsule Take 40 mg by mouth 2 times daily (before meals). Do not crush or chew. Historical ProviderMD ondansetron ODT (Zofran-ODT) 4 MG disintegrating tablet Take 4 mg by mouth every 8 hours as needed for nausea or vomiting. Historical Provider, oxyCODONE-acetaminophen (Percocet) 5-325 MG tablet 1 tablet Daily as needed for severe pain (7-10). Historical Provider, Prodigy Lancets 28G misc 1 Lancet. 4 times daily. Historical Provider, QUEtiapine (SEROquel) 25 MG tablet Take 25 mg by mouth Nightly. 1/2 tab qhs Historical Provider, QUEtiapine (SEROquel) 25 MG tablet Take 25 mg by mouth Nightly as needed (insomnia). 1/2 tab Historical Provider, @MEDCMED@ ALLERGIES: Allergies Allergen Reactions Meperidine Unknown and Nausea And Vomiting REVIEW OF SYSTEMS: No fever, chills, or sweats. Normal appetite and weight. No GIMENEZ, visual disturbance, eye pain, jaundice, sore throat or mouth ulcers. No skin rash or itching. No CP, SOB, LEAL, cough or wheeze. No urinary frequency, urgency, hematuria, or dysuria. No myalgia, arthralgia, or joint swelling. No weakness, numbness, or confusion. GI per HPI. No polyuria, polydipsia, heat or cold intolerance. PHYSICAL EXAM: VS: BP 148/63 Pulse 59 Temp 36.6 C (97.9 F) (Temporal) Resp 16 Ht 5' 1 (1.549 m) Wt 163 lb (73.9 kg) SpO2 99% BMI 30.80 kg/m Body mass index is 30.8 kg/m . GENERAL: Pleasant and NAD. HEENT: NCAT, PERRLA, EOMI, Scleral anicteric. CV: RRR, NL S1/S2, no murmurs. LUNGS: CTA b/l. No W/R/R. Abdomen: + BS, soft, non-tender and non-distended. No rebound or guarding. Neurologic: A&O x 1, Non-focal. Psych: Normal affect and speech. LABS AND IMAGING: Recent blood work and relevant radiologic and endoscopic studies were reviewed and discussed with the patient. Old records have not been requested. CBC: Recent Labs 11/11/24205711/12/24 0514 WBC 11.4* 7.6 HGB 12.7 10.8* HCT 40.3 35.1 PLT 190 171 HEPATIC: Recent Labs 11/11/242057 AST 35* ALT 17 BILITOT 0.4 ALKPHOS 82 LIPASE/AMYLASE: Recent Labs 11/11/242057 LIPASE 6 LACTATE: No lab exists for component: LACTA BNP: No results for input(s): BNP in the last 72 hours. INR: No results for input(s): INR in the last 72 hours. POCT glucose meter Result Date: 11/12/2024 Performed by: [facility], [address] [place] [id number] CLIA ID: [id number] ECG 12 lead Sinus rhythm Atrial premature complex Borderline repolarization abnormality Electronically Signed On 11-12-2024 05:38:47 EDT by Ruth Matias POCT glucose meter Result Date: 11/12/2024 Performed by: [facility], [address] [place] [id number] CLIA ID: [id number] POCT glucose meter Result Date: 11/12/2024 Performed by: [facility], [address] [place] [id number] CLIA ID: [id number] CT head wo IV contrast Result Date: 11/12/2024 Patient Name: MARGAR[facility]ANCOURT [facility] 1940 [id number] Exam Date/Time: 11/12/2024 00:15 Procedure: CT HEAD WO IV CONTRAST Ordering Provider: ADAMS ISH Reason For Exam: Mental status change, unknown cause CT HEAD: CLINICAL INDICATION: Mental status change, unknown cause. TECHNIQUE: Transaxial CT sequence performed through the head with 3 mm reconstruction. Sagittal and Coronal reconstruction images included. Dose reduction employed with automated exposure control. COMPARISON: CT head from 02/16/2019. MRI brain from 03/11/2017 FINDINGS: Ventricles and Extra-axial spaces: Normal in size and morphology for the patient's age. No abnormal extracerebral collection identified. Cerebral and cerebellar parenchyma: Periventricular low attenuation areas bilaterally, corresponding to chronic microvascular ischemic change. No additional focal mass lesion or evidence for acute infarct throughout the cerebrum or cerebellum. Hemorrhage: None Brainstem: Normal Visualized Paranasal sinuses: Normal. Mastoid air cells: Normal Visualized Orbits: Normal Calvarium and skull base: Normal Other: Atherosclerotic calcification within the distal internal carotid arteries Diminished cerebral volume and evidence of chronic microvascular ischemic change without acute intracranial abnormality. Report Dictated on Electronically Signed By: Ruslan Barnes MD Electronically Signed Date/Time: 11/12/2024 12:34 AM EDT IMPRESSION: Coffee ground emesis - single episode at home (none while in hospital), VSS, Hgb 10.8 (slightly down from admission but likely due to fluids), Eliquis held History of blood clot - on Eliquis (currently held) Dementia RECOMMENDATIONS: Continue to monitor for additional hematemesis/trend Hgb Continue PPI once daily Continue to hold Eliquis Spoke with family member at bedside and given age, stable Hgb and no additional episodes of bleeding, will hold off on EGD at this time If clinical status changes, would consider EGD then. [facility] Phone: 11-12-2024 Note GI CONSULTATION Patient: Margarita Betancourt : 1940 Primary Care Physician: JONN KRISHNAMURTHY DO Inpatient consult to Gastroenterology Consult performed by: Chao Pal MD Consult ordered by: Julio Adams MD CHIEF COMPLAINT: coffee ground emesis HISTORY OF PRESENT ILLNESS: 84 yo female with PMH as below whom GI is consulted for coffee ground emesis. History obtained from family member at bedside and chart review. Presented with a single episode of coffee ground emesis at home. May have happened in the past. On eliquis for history of a clot but this has been held in the hospital. She has not had any additional episodes of hematemesis while in the hospital. No previous EGD on record. Vital signs have been stable. Labs significant for Hgb 10.8 (12.7), WBC 7.6 (11.4), Plt 171 (190), ferritin 27. 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 She has never used smokeless tobacco. ETOH: reports no history of alcohol use. DRUGS: reports no history of drug use. Medications: Prior to Admission medications Medication Sig Start Date End Date Taking? Authorizing Provider apixaban (Eliquis) 5 MG tablet Take 5 mg by mouth daily. Historical ProviderMD B Complex Vitamins (B COMPLEX PO) Take 1 Dose by mouth daily. Historical ProviderMD CALCIUM-CHOLECALCIFEROL PO Take 1 Dose by mouth daily. Historical ProviderMD Coenzyme Q10 (CO Q 10 PO) Take 1 Dose by mouth daily. Historical ProviderMD docusate sodium (Colace) 100 MG capsule Take 100 mg by mouth Daily as needed for constipation. Historical ProviderMD gabapentin (Neurontin) 300 MG capsule Take 300 mg by mouth 2 times daily. Historical ProviderMD glucose blood test strip 1 strip by Other route 4 times daily. Use as instructed Historical ProviderMD hydrOXYzine pamoate (Vistaril) 25 MG capsule Take 25 mg by mouth Nightly. Historical ProviderMD insulin glargine (Lantus) 100 UNIT/ML injection Inject 18 Units under the skin Nightly. Historical ProviderMD insulin lispro (HumaLOG) 100 UNIT/ML pen injection Inject 14 Units under the skin 3 times daily (with meals). Historical ProviderMD ipratropium-albuterol (Duo-Neb) 0.5-2.5 mg/3 mL nebulizer solution Take 3 mL by nebulization 4 times daily. Historical ProviderMD lisinopril 20 MG tablet Take 20 mg by mouth daily. Historical ProviderMD magnesium 30 MG tablet Take 30 mg by mouth daily. Historical ProviderMD metoprolol succinate XL (Toprol-XL) 50 MG 24 hr tablet Take 50 mg by mouth daily. Do not crush or chew. Historical ProviderMD mirtazapine (Remeron) 45 MG tablet Take 45 mg by mouth Nightly. Historical ProviderMD Multiple Vitamins-Minerals (CENTRUM SILVER ADULT 50+ PO) Take 1 Dose by mouth daily. Historical ProviderMD NON FORMULARY Take 1 Dose by mouth as needed. Historical ProviderMD omeprazole (PriLOSEC) [address] capsule Take 40 mg by mouth 2 times daily (before meals). Do not crush or chew. Historical Provider, ondansetron ODT (Zofran-ODT) 4 MG disintegrating tablet Take 4 mg by mouth every 8 hours as needed for nausea or vomiting. Historical Provider, oxyCODONE-acetaminophen (Percocet) 5-325 MG tablet 1 tablet Daily as needed for severe pain (7-10). Historical Provider, Prodigy Lancets 28G misc 1 Lancet. 4 times daily. Historical Provider, QUEtiapine (SEROquel) 25 MG tablet Take 25 mg by mouth Nightly. 1/2 tab qhs Historical Provider, QUEtiapine (SEROquel) 25 MG tablet Take 25 mg by mouth Nightly as needed (insomnia). 1/2 tab Historical Provider, @MEDCMED@ ALLERGIES: Allergies Allergen Reactions Meperidine Unknown and Nausea And Vomiting REVIEW OF SYSTEMS: No fever, chills, or sweats. Normal appetite and weight. No GIMENEZ, visual disturbance, eye pain, jaundice, sore throat or mouth ulcers. No skin rash or itching. No CP, SOB, LEAL, cough or wheeze. No urinary frequency, urgency, hematuria, or dysuria. No myalgia, arthralgia, or joint swelling. No weakness, numbness, or confusion. GI per HPI. No polyuria, polydipsia, heat or cold intolerance. PHYSICAL EXAM: VS: BP 148/63 Pulse 59 Temp 36.6 ?C (97.9 ?F) (Temporal) Resp 16 Ht 5' 1 (1.549 m) Wt 163 lb (73.9 kg) SpO2 99% BMI 30.80 kg/m? Body mass index is 30.8 kg/m?. GENERAL: Pleasant and NAD. HEENT: NCAT, PERRLA, EOMI, Scleral anicteric. CV: RRR, NL S1/S2, no murmurs. LUNGS: CTA b/l. No W/R/R. Abdomen: + BS, soft, non-ten (more content not included)... [facility] 11-12-2024 Note Formatting of this n ote might be different from the original. CARE PROGRESSION NOTE Attempted to reach daughter Estefany to clarify home meds, left message asking for return call. Most recent list of medications [facility]. Stated some medications have not been picked up . Updated Dr. Haywood that medication list has not been confirmed with family. Per nurse Kahn, gautam Allison will be coming to hospital this afternoon. Thank you for allowing me to participate in the medical care of your patient. GALLO INTERVENTIONS [x] Care Coordination & Progression [x] Nursing Function [] Orders Placed [] Symptom Assessment [] Patient Experience [] Patient / Caregiver Conversation [facility] Phone: 11-12-2024 Note Formatting of this n ote might be different from the original. CARE PROGRESSION NOTE Attempted to reach gautam Allison to clarify home meds, left message asking for return call. Most recent list of medications from PCP reviewed with [facility]ist. Stated some medications have not been picked up . Updated Dr. Haywood that medication list has not been confirmed with family. Per nurse Kahn, gautam Allison will be coming to hospital this afternoon. Thank you for allowing me to participate in the medical care of your patient. GALLO INTERVENTIONS [x] Care Coordination & Progression [x] Nursing Function [] Orders Placed [] Symptom Assessment [] Patient Experience [] Patient / Caregiver Conversation [facility] Phone: 11-12-2024 Note CARE PROGRESSION NOT E Attempted to reach gautam Allison to clarify home meds, left message asking for return call. Most recent list of medications from PCP reviewed with [facility]ist. Stated some medications have not been picked up . Updated Dr. Haywood that medication list has not been confirmed with family. Per nurse Kahn, gautam Allison will be coming to hospital this afternoon. Thank you for allowing me to participate in the medical care of your patient. GALLO INTERVENTIONS [x] Care Coordination & Progression [x] Nursing Function [] Orders Placed [] Symptom Assessment [] Patient Experience [] Patient / Caregiver Conversation [employer] [facility] 11-12-2024 Note Hospitalist Progress Note 11/12/2024 Subjective: Admit Date: 11/11/2024 PCP: JONN KRISHNAMURTHY DO Room#: B2-250/B2-250 B BRIEF HOSPITAL COURSE: Margarita Betancourt presented to the emergency department on November 11 with nausea, vomiting, and emesis. The emesis was described as coffee-ground in appearance. She also reported dark tarry stools, associated with increased dizziness, lightheadedness, and syncope. The patient has a past medical history significant for dementia, depression, diabetes, hypertension, and asthma. Upon admission, the patient was diagnosed with acute GI bleed, myasthenic chronic anemia, HARINDER mucositis, and dehydration. Initial labs showed elevated WBC at 11.4, creatinine at 1.47, and AC elevated at 35. Subsequent labs revealed a drop in creatinine to 1.32 and hemoglobin to 10.8 from 12.7 at arrival. Iron studies showed low iron at 20, low iron saturation at 8.5, and low iron binding capacity at 236. Urinalysis demonstrated hematuria and proteinuria without signs of infection.Imaging of head: Diminished cerebral volume and evidence of chronic microvascular ischemic changes Interval History: Appears confused,She reports no current pain, headache, dizziness, or chest pain. Her last bowel movement was reportedly yesterday, and she states she is eating and urinating normally. Denies any nausea, dizziness, lightheadedness, denies any further emesis or dark tarry stools. No overnight issues. Case and plan discussed with patient and bedside nurse. All questions answered. 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 CARDIAC ENZYMES: No results for input(s): TROPONINI in the last 72 hours. Procalcitonin: No results found for: PROCAL COVID-19 PCR: No results for input(s): COVID19 in the last 72 hours. Objective: Vitals: BP 144/75 Pulse 71 Temp 36.7 ?C (98.1 ?F) (Temporal) Resp 16 Ht 5' 1 (1.549 m) Wt 163 lb (73.9 kg) SpO2 97% BMI 30.80 kg/m? Pulse Ox: SpO2 Av.8 % Min: 92 % Max: 99 % Supplemental O2: O2 Flow Rate (L/min): 3 L/min Physical Exam Physical Examination - General: Lying in bed sleeping, needed increased encouragement to wake up, was pleasant when woken up. - Respiratory: Wearing nasal cannula, decreased air entry to bases bilaterally. Coughing noted. - Cardiovascular: Heart rate regular with no abnormal murmur on exam. - Abdomen: Soft, non-tender. - Extremities: Swelling to bilateral legs, non-pitting. Right leg appears slightly reddened and warm to touch. Medications: Scheduled PRN insulin lispro, 0-12 Units, SubCUTAneous, TID WC And insulin lispro, 0-12 Units, SubCUTAneous, Nightly PRN medications: acetaminophen OR acetaminophen, dextrose, dextrose, glucagon (rDNA), glucose, ondansetron ODT OR ondansetron, polyethylene glycol (PEG) 3350 Continuous dextrose 5 % and sodium chloride 0.45 %, 75 mL/hr, Last Rate: 75 mL/hr (11/11/242314) Assessment Data: (CAT1) Reviewed 3 or more notes from different specialty or health system (each=1). (CAT1) Reviewed 3 or more labs/studies ordered by another provider not previously counted (each=1, panels count as 1). (CAT1) Ordered 3 or more new labs and/or studies (each=1, panels count as 1). (LOW: 2x CAT1 or independent historian MOD: 3x CAT1 or 1x CAT3 EXTENSIVE: 3x CAT1 and 1x CAT3) Acute, acute on chronic, unstable/uncontrolled chronic problems/diagnoses: Emesis and diarrhea - GI bleed - Admit to floor - GI consultations. - PPI daily, HOLD eliquis, - Daily labs - monitor for repeat bleeding, may need EGD in future. Acute Kidney Injury Patient presents with elevated creatinine, initially at 1.47 on admission. Repeat labs showed improvement with creatinine dropping to 1.32. The HARINDER is likely due to dehydration associated with the GI bleed. Urinalysis revealed hematuria and proteinuria without signs of infection, which may be related to the underlying renal dysfunction. - Continue monitoring of renal function with serial creatinine measurements - Maintain adequate hydration - Adjust medications as needed based on renal function Altered Mental (more content not included)... [facility] 11-12-2024 Plan of care note Problem: Knowledge Deficit Goal: Patient/family/caregiver demonstrates understanding of disease process, treatment plan, medications, and discharge instructions 11/12/2024730 by Stacey Winters RN Outcome: Not Progressing 11/12/2024140 by Stacey Winters RN Outcome: Not Progressing Problem: Potential for Compromised Skin Integrity Goal: Skin Integrity is Maintained or Improved 11/12/2024730 by Stacey Winters RN Outcome: Not Progressing 11/12/2024140 by Stacey Winters RN Outcome: Not Progressing Goal: Nutritional status is improving 11/12/2024730 by Stacey Winters RN Outcome: Not Progressing 11/12/2024140 by Stacey Winters RN Outcome: Not Progressing Problem: Urinary Incontinence Goal: Perineal skin integrity is maintained or improved 11/12/2024730 by Stacey Winters RN Outcome: Not Progressing 11/12/2024140 by Stacey Winters RN Outcome: Not Progressing Problem: Potential for Falls Goal: I will remain free of falls 11/12/2024730 by Stacey Winters RN Outcome: Not Progressing 11/12/2024 0141 by Stacey Winters RN Outcome: Not Progressing Problem: Discharge Barriers Goal: My discharge needs are met 11/12/2024 0731 by Stacey Winters RN Outcome: Not Progressing 11/12/2024 0141 by Stacey Winters RN Outcome: Not Progressing [facility] 11-12-2024 Plan of care note Problem: Knowledge Deficit Goal: Patient/family/caregiver demonstrates understanding of disease process, treatment plan, medications, and discharge instructions Outcome: Not Progressing Problem: Potential for Compromised Skin Integrity Goal: Skin Integrity is Maintained or Improved Outcome: Not Progressing Goal: Nutritional status is improving Outcome: Not Progressing Problem: Urinary Incontinence Goal: Perineal skin integrity is maintained or improved Outcome: Not Progressing Problem: Potential for Falls Goal: I will remain free of falls Outcome: Not Progressing Problem: Discharge Barriers Goal: My discharge needs are met Outcome: Not Progressing [facility] 11-11-2024 Emergency department Note Pts oxygen dropped while pt was sleeping to 88%, pts placed on 3 L NC [facility] 11-11-2024 Emergency department Note Pts oxygen dropped while pt was sleeping to 88%, pts placed on 3 L NC Family grabbed this RN and stated pts speech was slurred, RN at bedside to evaluate and speech doesn't appear slurred, pt does appear drowsy, Dr. Adams notified Emergency Department Encounter Pt Name: Margarita Betancourt Birthdate 1940 Date of evaluation: 11/11/2024 Provider: Marissa Angulo MD CHIEF COMPLAINT Chief Complaint Patient presents with Vomiting Diarrhea HISTORY OF PRESENT ILLNESS HPI Margarita Betancourt is a 84 y.o. female with history that includes dementia, diabetes, HTN, asthma, DVT (not on blood thinners), presenting to ED for vomiting, coffee ground emesis, melena, and confusion. History predominantly given by daughter at bedside. Has a history of GI bleeding not aggressively worked up due to age. Nursing Notes were reviewed. 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 PHYSICAL EXAM ED Triage Vitals [11/11/242038] Temp Heart Rate Resp BP 37.3 C (99.1 F) 86 16 (!) 151/65 SpO2 Temp src Heart Rate Source Patient Position 94 % -- -- -- BP Location FiO2 (%) -- -- Physical Exam Constitutional: Well-developed and well-nourished. No distress. HENT: Mucous membranes moist Cardiovascular: Regular rhythm. Pulmonary/Chest: Effort normal with no conversational dyspnea. Clear to auscultation bilaterally. Abdominal: Soft. No tenderness. No distension or guarding. Musculoskeletal: No edema and no calf tenderness to palpation. Skin: Skin is warm and dry. Neuro: Strength 5/5 with bilateral shoulder extension and bilateral hip flexion. Sensation to light touch intact in bilateral upper and lower extremities. No facial asymmetry. Psychiatric: Withdrawn. Disoriented. EMERGENCY DEPARTMENT COURSE and DIFFERENTIAL DIAGNOSIS/MDM: Patient presenting with GI bleeding, painless therefore no CT abdomen pelvis was ordered. Seems like this is a longstanding issue and her H&H is normal. Of concern however is the confusion and I am unclear as to what may be causing this. Urinalysis was obtained and was not convincing for UTI. I hear no abnormal lung sounds to warrant chest x-ray as I do not suspect pneumonia. There is no uremia or liver dysfunction. Her electrolytes are not the culprit. I discussed case with Dr. Adams who accepted the patient for admission for further workup and management. Diagnoses as of 11/12/24 1229 Confusion Gastrointestinal hemorrhage, unspecified gastrointestinal hemorrhage type ED medications managed: IV protonix Chronic conditions and social determinants of health affecting care: Chronic GI bleed, geriatric DISPOSITION/PLAN Admit Marissa Angulo MD Emergency Medicine Marissa Angulo MD 11/12/24 1229 Pt reports from home for N/V, family states pt has an active GI bleed but is not a candidate for surgery. Pt alert and oriented x 2 (baseline per EMS) hx dementia Dr. Adams at bedside RN reached out to Dr. Adams about ordering CT head due to pt being more confused per family. Family stated around noon today because started to lean to the right and become more confused then baseline documented in this encounter [facility] 11-11-2024 Emergency department Note Family grabbed this RN and stated pts speech was slurred, RN at bedside to evaluate and speech doesn't appear slurred, pt does appear drowsy, Dr. Adams notified [facility] 11-11-2024 History and physical note Attending History and Physical Admit Date: 11/11/2024 PCP: JONN KRISHNAMURTHY DO CHIEF COMPLAINT: Vomiting, diarrhea Reason for Admission: GI bleed History Obtained From: patient, ER provider HISTORY OF PRESENT ILLNESS: Margarita is a 84 y.o. female with past medical history significant for asthma, dementia, depression, diabetes, hypertension. Patient presented to the emergency room with chief complaint of coffee-ground emesis and dark tarry stool. Patient has been dealing with the symptoms for a while however scope was not performed due to patient's advanced age. Daughter was concerned of patient's symptoms and brought her to the ER for further evaluation due to patient's persistent symptoms and worsening fatigue. She was also concerned about underlying UTI Past Medical History: Past Medical History: Diagnosis Date Asthma Blood clot in vein Dementia ([facility]) Depression Diabetes mellitus (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 Hypertension Past Surgical History: Past Surgical History: Procedure Laterality Date HIP FRACTURE SURGERY Right 02/17/2019 HYSTERECTOMY JOINT REPLACEMENT Social History: Social History Socioeconomic History Marital status: Spouse name: Not on file Number of children: Not on file Years of education: Not on file Highest education level: Not on file Occupational History Not on file Tobacco Use Smoking status: Never Smokeless tobacco: Never Substance and Sexual Activity Alcohol use: No Drug use: No Sexual activity: Not on file Other Topics Concern Not on file Social History Narrative Not on file Social Drivers of Health Financial Resource Strain: Not on file Food Insecurity: Not on file Transportation Needs: Not on file Physical Activity: Not on file Stress: Not on file Social Connections: Not on file Intimate Partner Violence: Not on file Housing Stability: Not on file Family History: Family History Problem Relation Name Age of Onset Asthma Mother Heart attack Brother 55.00 Heart disease Brother Medications Prior to Admission: No current facility-administered medications on file prior to encounter. No current outpatient medications on file prior to encounter. Allergies: Allergies Allergen Reactions Meperidine Unknown and Nausea And Vomiting REVIEW OF SYSTEMS: Constitutional: Negative for fever, chills, activity change and unexpected weight change. HEENT: Negative for congestion, postnasal drip and sneezing. Eyes: Negative for itching and visual disturbance. Respiratory: Negative for apnea, cough, choking, chest tightness, shortness of breath, wheezing and stridor. Cardiovascular: Negative for chest pain. Gastrointestinal: Positive for coffee-ground emesis and dark tarry stool, nausea, loss of appetite Genitourinary: Negative for dysuria, frequency and flank pain. Musculoskeletal: Negative for myalgias and joint swelling. Skin: Negative for rash. Neurological: Negative for dizziness, tremors, seizures, syncope, facial asymmetry, speech difficulty, weakness, numbness and headaches. Hematological: Negative for adenopathy. Psychiatric/Behavioral: Negative for suicidal ideas, behavioral problems, self-injury and dysphoric mood. Vitals: BP (!) 151/65 Pulse 86 Temp 37.3 C (99.1 F) Resp 16 SpO2 94% BMI Classification: Pulse Ox: SpO2 Av % Min: 94 % Max: 94 % Supplemental O2: PHYSICAL EXAM: Constitutional: General: Patient is not in acute distress. Appearance: Sleepy but arousable HENT: Head: Normocephalic and atraumatic. Right Ear: External ear normal. Left Ear: External ear normal. Mouth/Throat: Mouth: Mucous membranes are dry. Pharynx: Oropharynx is clear. Eyes: Extraocular Movements: Extraocular movements intact. Conjunctiva/sclera: Conjunctivae normal. Pupils: Pupils are equal, round, and reactive to light. Cardiovascular: Comments: Regular rate and rhythm, normal S1-S2, no murmurs noted. Radial pulses 2+ and symmetric. Pulmonary: Effort: Pulmonary effort is normal. No respiratory distress. Breath sounds: Normal breath sounds. No stridor. No wheezing or rhonchi. Abdominal: Comments: The abdomen is soft, nondistended and nontender. There is no rebound tenderness or guarding. Bowel sounds are normal. Skin: General: Skin is warm and dry. Capillary Refill: Capillary refill takes less than 2 seconds. Coloration: Skin is not jaundiced or pale. Findings: No bruising or erythema. Neurological: General: No focal deficit present. Family member stated that her speech is garbled, though I didn't notice any issues, except for the fact that patient was tired and was falling asleep Psychiatric: Mood and Affect: Mood normal. Musculoskeletal: NO edema DATA: CBC: Recent Labs 11/11/242057 WBC 11.4* RBC 5.29* HGB 12.7 HCT 40.3 MCV 76.2* RDW 20.5* PLT 190 BMP: Recent Labs 11/11/242057 NA 138 K 5.1 CL 108* CO2 20* BUN 36* CREATININE 1.47* GLUCOSE 85 CALCIUM 8.9 ANIONGAP 10 LIVER PROFILE: Recent Labs 11/11/242057 AST 35* ALT 17 BILITOT 0.4 ALKPHOS 82 PROT 7.0 PT/INR: No results for input(s): PROTIME, INR in the last 72 hours. CARDIAC ENZYMES: No results for input(s): TROPONINI in the last 72 hours. Procalcitonin: No results found for: PROCAL Urine Culture: No results found for this or any previous visit. COVID-19 PCR: No results for input(s): COVID19 in the last 72 hours. I reviewed: [x] laboratory results [x] radiographic results At the time of today's encounter. Pt was advised of the results. Data: (CAT1) Reviewed 3 or more labs/studies ordered by another provider not previously counted (each=1, panels count as 1). (LOW: 2x CAT1 or independent historian MOD: 3x CAT1 or 1x CAT3 EXTENSIVE: 3x CAT1 and 1x CAT3) Assessment Discussed management with the ED provider and agree with hospitalization. Acute, acute on chronic, unstable/uncontrolled chronic problems/diagnoses: Acute GI bleed Chronic anemia Acute kidney injury Leukocytosis Dehydration Stable chronic problems affecting care, new non-acute diagnoses: History of senile dementia Depression Type 2 diabetes Hypertension Asthma Plan As a result of the above findings & factors, the following mgmt was pursued: -Admit the patient to the medical floor Will make the patient n.p.o. Initiate IV fluid Consult gastroenterology Initiate Protonix 40 mg IV twice daily Check iron panel Follow-up hemoglobin count in the morning Avoid nephrotoxic agent Follow-up renal panel in the morning Accu-Cheks ACHS with sliding scale insulin coverage - PT/OT/CM/SW - delirium precautions: increase activity and limit nighttime disturbances - DVT prophylaxis: enoxaparin and encourage ambulation Complexity: Acute illness with systemic symptoms (MOD). Risk: Admission to hospital-level care was considered or occurred (HIGH). Advance Directive: No Order Anticipated Discharge - Date - 11/13/2024 - Location - Home with Home Health Care - Pending the following -GI evaluation Total time spent (which include face to face and non face to face encounters) : 60 minutes. Toxic drug monitoring/narrow therapeutic index drug monitoring : # Drug name : # Route administered : # Method of monitoring : Extended Emergency Contact Information Primary Emergency Contact: Estefany Betancourt Relation: Other Secondary Emergency Contact: Sandeep Betancourt Relation: Child [employer] Margarita Betancourt : 1940 Primary Care Physician: JONN KRISHNAMURTHY DO The patient and/or family/surrogate voluntarily agreed to participate in ACP services. Patient s cognitive capacity: Alert, Orientedx3 Code Status: [x_] [FULL CODE - Continue all advanced life support: CPR,intubation,invasive procedures] [_] [DNR-CCA - DO NOT do CPR, intubation] [_] [DNR-FORM MAKER PLASTER - Comfort care only] [_] DNR form [was/was not] signed Summary of discussion: The patient health care POA/ surrogate is the following: Patient. [Condition that instigated the ACP on this DOS, relevant PMH, functional status, goals of care, and whom this was discussed with including names and relationship to the patient, and any relevant advance care documentation discussion] I answered all the patient/family questions that I could within the range and scope of the current medical situation. We discussed the medical conditions, risks, benefits, outcomes, and goals of care at this time for the patient's medical issues at hand in the face of the patient's chronic issues and current presentation. Total time spent: 5 minutes were spent discussing the patient's resuscitation status, advance care planning, and end of life care, with patient and/or family/surrogate. Julio Adams MD Division of Hospitalist Medicine [facility] Phone: 11-11-2024 Note Attending History an d Physical Admit Date: 11/11/2024 PCP: JONN KRISHNAMURTHY DO CHIEF COMPLAINT: Vomiting, diarrhea Reason for Admission: GI bleed History Obtained From: patient, ER provider HISTORY OF PRESENT ILLNESS: Margarita is a 84 y.o. female with past medical history significant for asthma, dementia, depression, diabetes, hypertension. Patient presented to the emergency room with chief complaint of coffee-ground emesis and dark tarry stool. Patient has been dealing with the symptoms for a while however scope was not performed due to patient's advanced age. Daughter was concerned of patient's symptoms and brought her to the ER for further evaluation due to patient's persistent symptoms and worsening fatigue. She was also concerned about underlying UTI Past Medical History: Past Medical History: Diagnosis Date Asthma Blood clot in vein Dementia ([facility]) Depression Diabetes mellitus (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 Hypertension Past Surgical History: Past Surgical History: Procedure Laterality Date HIP FRACTURE SURGERY Right 02/17/2019 HYSTERECTOMY JOINT REPLACEMENT Social History: Social History Socioeconomic History Marital status: Spouse name: Not on file Number of children: Not on file Years of education: Not on file Highest education level: Not on file Occupational History Not on file Tobacco Use Smoking status: Never Smokeless tobacco: Never Substance and Sexual Activity Alcohol use: No Drug use: No Sexual activity: Not on file Other Topics Concern Not on file Social History Narrative Not on file Social Drivers of Health Financial Resource Strain: Not on file Food Insecurity: Not on file Transportation Needs: Not on file Physical Activity: Not on file Stress: Not on file Social Connections: Not on file Intimate Partner Violence: Not on file Housing Stability: Not on file Family History: Family History Problem Relation Name Age of Onset Asthma Mother Heart attack Brother 55.00 Heart disease Brother Medications Prior to Admission: No current facility-administered medications on file prior to encounter. No current outpatient medications on file prior to encounter. Allergies: Allergies Allergen Reactions Meperidine Unknown and Nausea And Vomiting REVIEW OF SYSTEMS: Constitutional: Negative for fever, chills, activity change and unexpected weight change. HEENT: Negative for congestion, postnasal drip and sneezing. Eyes: Negative for itching and visual disturbance. Respiratory: Negative for apnea, cough, choking, chest tightness, shortness of breath, wheezing and stridor. Cardiovascular: Negative for chest pain. Gastrointestinal: Positive for coffee-ground emesis and dark tarry stool, nausea, loss of appetite Genitourinary: Negative for dysuria, frequency and flank pain. Musculoskeletal: Negative for myalgias and joint swelling. Skin: Negative for rash. Neurological: Negative for dizziness, tremors, seizures, syncope, facial asymmetry, speech difficulty, weakness, numbness and headaches. Hematological: Negative for adenopathy. Psychiatric/Behavioral: Negative for suicidal ideas, behavioral problems, self-injury and dysphoric mood. Vitals: BP (!) 151/65 Pulse 86 Temp 37.3 ?C (99.1 ?F) Resp 16 SpO2 94% BMI Classification: Pulse Ox: SpO2 Av % Min: 94 % Max: 94 % Supplemental O2: PHYSICAL EXAM: Constitutional: General: Patient is not in acute distress. Appearance: Sleepy but arousable HENT: Head: Normocephalic and atraumatic. Right Ear: External ear normal. Left Ear: External ear normal. Mouth/Throat: Mouth: Mucous membranes are dry. Pharynx: Oropharynx is clear. Eyes: Extraocular Movements: Extraocular movements intact. Conjunctiva/sclera: Conjunctivae normal. Pupils: Pupils are equal, round, and reactive to light. Cardiovascular: Comments: Regular rate and rhythm, normal S1-S2, no murmurs noted. Radial pulses 2+ and symmetric. Pulmonary: Effort: Pulmonary effort is normal. No respiratory distress. Breath sounds: Normal breath sounds. No stridor. No wheezing or rhonchi. Abdominal: Comments: The abdomen is soft, nondistended and nontender. There is no rebound tenderness or guarding. Bowel sounds are normal. Skin: General: Skin is warm and dry. Capillary Refill: Capillary refill takes less than 2 seconds. Coloration: Skin is not jaundiced or pale. Findings: No bruising or erythema. Neurological: General: No focal deficit present. Family member stated that her speech is garbled, though I didn't notice any issues, except for the fact that patient was tired and was falling asleep Psychiatric: Mood and Affect: Mood normal. Musculoskeletal: NO edema DATA: CBC: Recent Labs 11/11/242057 WBC 11.4* RBC 5.29* HGB 12.7 HCT 40.3 MCV 76.2* RDW 20.5* PLT 190 BMP: Recent Labs 11/11/242057 NA 138 (more content not included)... [facility] 11-11-2024 History and physical note Attending History and Physical Admit Date: 11/11/2024 PCP: JONN KRISHNAMURTHY DO CHIEF COMPLAINT: Vomiting, diarrhea Reason for Admission: GI bleed History Obtained From: patient, ER provider HISTORY OF PRESENT ILLNESS: Margarita is a 84 y.o. female with past medical history significant for asthma, dementia, depression, diabetes, hypertension. Patient presented to the emergency room with chief complaint of coffee-ground emesis and dark tarry stool. Patient has been dealing with the symptoms for a while however scope was not performed due to patient's advanced age. Daughter was concerned of patient's symptoms and brought her to the ER for further evaluation due to patient's persistent symptoms and worsening fatigue. She was also concerned about underlying UTI Past Medical History: Past Medical History: Diagnosis Date Asthma Blood clot in vein Dementia ([facility]) Depression Diabetes mellitus (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 Hypertension Past Surgical History: Past Surgical History: Procedure Laterality Date HIP FRACTURE SURGERY Right 02/17/2019 HYSTERECTOMY JOINT REPLACEMENT Social History: Social History Socioeconomic History Marital status: Spouse name: Not on file Number of children: Not on file Years of education: Not on file Highest education level: Not on file Occupational History Not on file Tobacco Use Smoking status: Never Smokeless tobacco: Never Substance and Sexual Activity Alcohol use: No Drug use: No Sexual activity: Not on file Other Topics Concern Not on file Social History Narrative Not on file Social Drivers of Health Financial Resource Strain: Not on file Food Insecurity: Not on file Transportation Needs: Not on file Physical Activity: Not on file Stress: Not on file Social Connections: Not on file Intimate Partner Violence: Not on file Housing Stability: Not on file Family History: Family History Problem Relation Name Age of Onset Asthma Mother Heart attack Brother 55.00 Heart disease Brother Medications Prior to Admission: No current facility-administered medications on file prior to encounter. No current outpatient medications on file prior to encounter. Allergies: Allergies Allergen Reactions Meperidine Unknown and Nausea And Vomiting REVIEW OF SYSTEMS: Constitutional: Negative for fever, chills, activity change and unexpected weight change. HEENT: Negative for congestion, postnasal drip and sneezing. Eyes: Negative for itching and visual disturbance. Respiratory: Negative for apnea, cough, choking, chest tightness, shortness of breath, wheezing and stridor. Cardiovascular: Negative for chest pain. Gastrointestinal: Positive for coffee-ground emesis and dark tarry stool, nausea, loss of appetite Genitourinary: Negative for dysuria, frequency and flank pain. Musculoskeletal: Negative for myalgias and joint swelling. Skin: Negative for rash. Neurological: Negative for dizziness, tremors, seizures, syncope, facial asymmetry, speech difficulty, weakness, numbness and headaches. Hematological: Negative for adenopathy. Psychiatric/Behavioral: Negative for suicidal ideas, behavioral problems, self-injury and dysphoric mood. Vitals: BP (!) 151/65 Pulse 86 Temp 37.3 C (99.1 F) Resp 16 SpO2 94% BMI Classification: Pulse Ox: SpO2 Av % Min: 94 % Max: 94 % Supplemental O2: PHYSICAL EXAM: Constitutional: General: Patient is not in acute distress. Appearance: Sleepy but arousable HENT: Head: Normocephalic and atraumatic. Right Ear: External ear normal. Left Ear: External ear normal. Mouth/Throat: Mouth: Mucous membranes are dry. Pharynx: Oropharynx is clear. Eyes: Extraocular Movements: Extraocular movements intact. Conjunctiva/sclera: Conjunctivae normal. Pupils: Pupils are equal, round, and reactive to light. Cardiovascular: Comments: Regular rate and rhythm, normal S1-S2, no murmurs noted. Radial pulses 2+ and symmetric. Pulmonary: Effort: Pulmonary effort is normal. No respiratory distress. Breath sounds: Normal breath sounds. No stridor. No wheezing or rhonchi. Abdominal: Comments: The abdomen is soft, nondistended and nontender. There is no rebound tenderness or guarding. Bowel sounds are normal. Skin: General: Skin is warm and dry. Capillary Refill: Capillary refill takes less than 2 seconds. Coloration: Skin is not jaundiced or pale. Findings: No bruising or erythema. Neurological: General: No focal deficit present. Family member stated that her speech is garbled, though I didn't notice any issues, except for the fact that patient was tired and was falling asleep Psychiatric: Mood and Affect: Mood normal. Musculoskeletal: NO edema DATA: CBC: Recent Labs 11/11/242057 WBC 11.4* RBC 5.29* HGB 12.7 HCT 40.3 MCV 76.2* RDW 20.5* PLT 190 BMP: Recent Labs 11/11/242057 NA 138 K 5.1 CL 108* CO2 20* BUN 36* CREATININE 1.47* GLUCOSE 85 CALCIUM 8.9 ANIONGAP 10 LIVER PROFILE: Recent Labs 11/11/242057 AST 35* ALT 17 BILITOT 0.4 ALKPHOS 82 PROT 7.0 PT/INR: No results for input(s): PROTIME, INR in the last 72 hours. CARDIAC ENZYMES: No results for input(s): TROPONINI in the last 72 hours. Procalcitonin: No results found for: PROCAL Urine Culture: No results found for this or any previous visit. COVID-19 PCR: No results for input(s): COVID19 in the last 72 hours. I reviewed: [x] laboratory results [x] radiographic results At the time of today's encounter. Pt was advised of the results. Data: (CAT1) Reviewed 3 or more labs/studies ordered by another provider not previously counted (each=1, panels count as 1). (LOW: 2x CAT1 or independent historian MOD: 3x CAT1 or 1x CAT3 EXTENSIVE: 3x CAT1 and 1x CAT3) Assessment Discussed management with the ED provider and agree with hospitalization. Acute, acute on chronic, unstable/uncontrolled chronic problems/diagnoses: Acute GI bleed Chronic anemia Acute kidney injury Leukocytosis Dehydration Stable chronic problems affecting care, new non-acute diagnoses: History of senile dementia Depression Type 2 diabetes Hypertension Asthma Plan As a result of the above findings & factors, the following mgmt was pursued: -Admit the patient to the medical floor Will make the patient n.p.o. Initiate IV fluid Consult gastroenterology Initiate Protonix 40 mg IV twice daily Check iron panel Follow-up hemoglobin count in the morning Avoid nephrotoxic agent Follow-up renal panel in the morning Accu-Cheks ACHS with sliding scale insulin coverage - PT/OT/CM/SW - delirium precautions: increase activity and limit nighttime disturbances - DVT prophylaxis: enoxaparin and encourage ambulation Complexity: Acute illness with systemic symptoms (MOD). Risk: Admission to hospital-level care was considered or occurred (HIGH). Advance Directive: No Order Anticipated Discharge - Date - 11/13/2024 - Location - Home with Home Health Care - Pending the following -GI evaluation Total time spent (which include face to face and non face to face encounters) : 60 minutes. Toxic drug monitoring/narrow therapeutic index drug monitoring : # Drug name : # Route administered : # Method of monitoring : Extended Emergency Contact Information Primary Emergency Contact: Estefany Betancourt Relation: Other Secondary Emergency Contact: Sandeep Betancourt Relation: Child [employer] Margarita Betancourt : 1940 Primary Care Physician: JONN KRISHNAMURTHY DO The patient and/or family/surrogate voluntarily agreed to participate in ACP services. Patient s cognitive capacity: Alert, Orientedx3 Code Status: [x_] [FULL CODE - Continue all advanced life support: CPR,intubation,invasive procedures] [_] [DNR-CCA - DO NOT do CPR, intubation] [_] [DNR-FORM MAKER PLASTER - Comfort care only] [_] DNR form [was/was not] signed Summary of discussion: The patient health care POA/ surrogate is the following: Patient. [Condition that instigated the ACP on this DOS, relevant PMH, functional status, goals of care, and whom this was discussed with including names and relationship to the patient, and any relevant advance care documentation discussion] I answered all the patient/family questions that I could within the range and scope of the current medical situation. We discussed the medical conditions, risks, benefits, outcomes, and goals of care at this time for the patient's medical issues at hand in the face of the patient's chronic issues and current presentation. Total time spent: 5 minutes were spent discussing the patient's resuscitation status, advance care planning, and end of life care, with patient and/or family/surrogate. Julio Adams MD Division of Hospitalist Medicine [facility] documented in this encounter [facility] 11-11-2024 Emergency department Triage note Pt reports from home for N/V, family states pt has an active GI bleed but is not a candidate for surgery. Pt alert and oriented x 2 (baseline per EMS) hx dementia [facility] 11-11-2024 Physician Emergency department Note Emergency Department Encounter Pt Name: Margarita Betancourt Birthdate 1940 Date of evaluation: 11/11/2024 Provider: Marissa Angulo MD CHIEF COMPLAINT Chief Complaint Patient presents with Vomiting Diarrhea HISTORY OF PRESENT ILLNESS HPI Margarita Betancourt is a 84 y.o. female with history that includes dementia, diabetes, HTN, asthma, DVT (not on blood thinners), presenting to ED for vomiting, coffee ground emesis, melena, and confusion. History predominantly given by daughter at bedside. Has a history of GI bleeding not aggressively worked up due to age. Nursing Notes were reviewed. Past Medical History: Diagnosis Date Asthma Blood clot in vein Dementia (CMS/HCC) Depression Diabetes mellitus (CMS/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 PHYSICAL EXAM ED Triage Vitals [11/11/242038] Temp Heart Rate Resp BP 37.3 C (99.1 F) 86 16 (!) 151/65 SpO2 Temp src Heart Rate Source Patient Position 94 % -- -- -- BP Location FiO2 (%) -- -- Physical Exam Constitutional: Well-developed and well-nourished. No distress. HENT: Mucous membranes moist Cardiovascular: Regular rhythm. Pulmonary/Chest: Effort normal with no conversational dyspnea. Clear to auscultation bilaterally. Abdominal: Soft. No tenderness. No distension or guarding. Musculoskeletal: No edema and no calf tenderness to palpation. Skin: Skin is warm and dry. Neuro: Strength 5/5 with bilateral shoulder extension and bilateral hip flexion. Sensation to light touch intact in bilateral upper and lower extremities. No facial asymmetry. Psychiatric: Withdrawn. Disoriented. EMERGENCY DEPARTMENT COURSE and DIFFERENTIAL DIAGNOSIS/MDM: Patient presenting with GI bleeding, painless therefore no CT abdomen pelvis was ordered. Seems like this is a longstanding issue and her H&H is normal. Of concern however is the confusion and I am unclear as to what may be causing this. Urinalysis was obtained and was not convincing for UTI. I hear no abnormal lung sounds to warrant chest x-ray as I do not suspect pneumonia. There is no uremia or liver dysfunction. Her electrolytes are not the culprit. I discussed case with Dr. Adams who accepted the patient for admission for further workup and management. Diagnoses as of 11/12/24 1229 Confusion Gastrointestinal hemorrhage, unspecified gastrointestinal hemorrhage type ED medications managed: IV protonix Chronic conditions and social determinants of health affecting care: Chronic GI bleed, geriatric DISPOSITION/PLAN Admit Marissa Angulo MD Emergency Medicine Marissa Angulo MD 11/12/24 1229 [facility] 11-11-2024 Telephone encounter Note Reason for Call: Vomiting Daughter called stating patient has been vomiting and is to weak to stand. Her color is very pale and pasty. Daughter states patient is not able to get up and move, she has no strength to get up, she can not stand, sit up and she is falling over. Daughter was not with patient at the time but states she was just present. Based on above information provided, recommendation as noted. Outcome: Call EMS 911 Now Daughter notified with verbalized understanding. She will call 911 now. Reason for Disposition Shock suspected (e.g., cold/pale/clammy skin, too weak to stand, low BP, rapid pulse) Protocols used: [id number] [facility] 11-11-2024 Miscellaneous Notes Reason for Call: Vomiting Daughter called stating patient has been vomiting and is to weak to stand. Her color is very pale and pasty. Daughter states patient is not able to get up and move, she has no strength to get up, she can not stand, sit up and she is falling over. Daughter was not with patient at the time but states she was just present. Based on above information provided, recommendation as noted. Outcome: Call EMS 911 Now Daughter notified with verbalized understanding. She will call 911 now. Reason for Disposition Shock suspected (e.g., cold/pale/clammy skin, too weak to stand, low BP, rapid pulse) Protocols used: [id number] documented in this encounter [facility] 11-11-[address] Adams at bedside [facility] 11-11-2024 Emergency department Note RN reached out to Dr. Adams about ordering CT head due to pt being more confused per family. Family stated around noon today because started to lean to the right and become more confused then baseline [facility] 11-08-2024 Telephone encounter Note Ok to fill patient Oxycodone request? Pharmacy faxed requesting the following refill Refill(s) Requested: Requested Prescriptions Pending Prescriptions Disp Refills mirtazapine (REMERON) 45 mg tablet 90 tablet 1 Sig: Take 1 tablet by mouth daily at bedtime. ondansetron orally disintegrating (ZOFRAN ODT) 4 mg disintegrating tablet 30 tablet 5 Sig: Take 1 tablet by mouth every 8 hours as needed for nausea/vomiting. oxyCODONE-acetaminophen (PERCOCET) 5-325 mg tablet 16 tablet 0 Sig: Take 1 tablet by mouth every 4 hours as needed for pain for up to 16 doses. ALLERGIES Allergen Reactions Meperidine Unknown, Vomiting (home) [phone] (work) [phone] (cell) Last Office Visit Date: 06/11/2024 Last [facility] Visit: Visit date not found Future Appointment: Visit date not found The patients preferred pharmacy has been captured for this encounter? yes Request is for script(s) to be escript to pharmacy. Lily Cook LPN [facility] 11-08-2024 Miscellaneous Notes Ok to fill patient Oxycodone request? Pharmacy faxed requesting the following refill Refill(s) Requested: Requested Prescriptions Pending Prescriptions Disp Refills mirtazapine (REMERON) 45 mg tablet 90 tablet 1 Sig: Take 1 tablet by mouth daily at bedtime. ondansetron orally disintegrating (ZOFRAN ODT) 4 mg disintegrating tablet 30 tablet 5 Sig: Take 1 tablet by mouth every 8 hours as needed for nausea/vomiting. oxyCODONE-acetaminophen (PERCOCET) 5-325 mg tablet 16 tablet 0 Sig: Take 1 tablet by mouth every 4 hours as needed for pain for up to 16 doses. ALLERGIES Allergen Reactions Meperidine Unknown, Vomiting (home) [phone] (work) [phone] (cell) Last Office Visit Date: 06/11/2024 Last [facility] Visit: Visit date not found Future Appointment: Visit date not found The patients preferred pharmacy has been captured for this encounter? yes Request is for script(s) to be escript to pharmacy. Lily Cook LPN documented in this encounter [facility] 10-14-2024 Telephone encounter Note Per family the patient is to request pain med via MyChart [facility] 10-14-2024 Miscellaneous Notes Per family the patient is to request pain med via MyChart documented in this encounter [facility] 09-12-2024 Telephone encounter Note Patient mychart requesting refill. Okay to refill? [facility] 09-12-2024 Miscellaneous Notes Patient mychart requesting refill. Okay to refill? documented in this encounter [facility] 09-09-2024 Telephone encounter Note Pt dil called and left message that Pluma Right eye is now red - like a blood vessel burst. Pt has no change in vision. No pain in the eye. No recent bp readings on pt. I instructed to take bp and to contact her eye doctor to see if they would like to see her regarding this. [facility] 09-09-2024 Miscellaneous Notes Pt dil called and left message that Pluma Right eye is now red - like a blood vessel burst. Pt has no change in vision. No pain in the eye. No recent bp readings on pt. I instructed to take bp and to contact her eye doctor to see if they would like to see her regarding this. documented in this encounter [facility] 08-15-2024 Telephone encounter Note sent [facility] 08-15-2024 Miscellaneous Notes sent Pt's Oxycodone was sent to a pharmacy that pt does not use. Pt needs this sent to the [facility] on [address] [place] documented in this encounter [facility] 08-14-2024 Telephone encounter Note Pt's Oxycodone was sent to a pharmacy that pt does not use. Pt needs this sent to the [facility] on [address] [place] [facility] 08-13-2024 Telephone encounter Note Pharmacy faxed requesting the following refill Refill(s) Requested: Requested Prescriptions Pending Prescriptions Disp Refills mirtazapine (REMERON) 15 mg tablet [Pharmacy Med Name: MIRTAZAPINE 15 MG TABLET] 291 tablet 0 Sig: TAKE 1 TAB BY MOUTH DAILY AT BEDTIME X7 DAYS, THEN 2 TABS DAILY AT BEDTIME X7 DAYS, THEN 3 TABLETS DAILY AT BEDTIME ALLERGIES Allergen Reactions Meperidine Unknown, Vomiting (home) [phone] (work) [phone] (cell) Last Office Visit Date: 06/11/2024 Last [facility] Visit: Visit date not found Future Appointment: Visit date not found The patients preferred pharmacy has been captured for this encounter? yes Request is for script(s) to be escript to pharmacy. Lily Cook LPN [facility] 08-13-2024 Miscellaneous Notes Pharmacy faxed requesting the following refill Refill(s) Requested: Requested Prescriptions Pending Prescriptions Disp Refills mirtazapine (REMERON) 15 mg tablet [Pharmacy Med Name: MIRTAZAPINE 15 MG TABLET] 291 tablet 0 Sig: TAKE 1 TAB BY MOUTH DAILY AT BEDTIME X7 DAYS, THEN 2 TABS DAILY AT BEDTIME X7 DAYS, THEN 3 TABLETS DAILY AT BEDTIME ALLERGIES Allergen Reactions Meperidine Unknown, Vomiting (home) [phone] (work) [phone] (cell) Last Office Visit Date: 06/11/2024 Last [facility] Visit: Visit date not found Future Appointment: Visit date not found The patients preferred pharmacy has been captured for this encounter? yes Request is for script(s) to be escript to pharmacy. Lily Cook LPN documented in this encounter [facility] 07-10-2024 Telephone encounter Note Message with this [employer] request states they were told to request this via [employer] [facility] 07-10-2024 Miscellaneous Notes Message with this [email or web address] request states they were told to request this via [employer] documented in this encounter [facility] 06-18-2024 Telephone encounter Note Called the care associate answered she said this appointment was supposed to be canceled by the same person who canceled her MRI . [facility] 06-18-2024 Miscellaneous Notes Called the care associate answered she said this appointment was supposed to be canceled by the same person who canceled her MRI . documented in this encounter [facility] 06-14-2024 Telephone encounter Note Spoke with Estefany and advised [facility] 06-14-2024 Miscellaneous Notes Spoke with Estefany and advised ----- Message from Jonn Krishnamurthy DO sent at 06/14/2024 11:02 AM EDT ----- +For uti macrodantin sent documented in this encounter [facility] 06-14-2024 Telephone encounter Note ----- Message from Jonn Krishnamurthy DO sent at 06/14/2024 11:02 AM EDT ----- +For uti macrodantin sent [facility] 06-13-2024 Telephone encounter Note Called and spoke to Estefany. Advised Dr. Krishnamurthy sent Bactrim DS to the pharmacy for the patient. [facility] 06-13-2024 Miscellaneous Notes Called and spoke to Estefany. Advised Dr. Krishnamurthy sent Bactrim DS to the pharmacy for the patient. documented in this encounter [facility] 06-11-2024 Note HNO ID: [id number] Author: JONN KRISHNAMURTHY DO Service: ? Author Type: Physician Type: Progress Notes Filed: 06/17/2024 21:20 Note Text: [facility] [place] Jonn Krishnamurthy DO [address] [facility] [place] [address] Date of Evaluation: 06/11/2024 Patient Name: Margarita Betancourt : 1940 Chief Complaint: Patient presents with: Urinary Frequency Incontinence: Bowel and urinary. X 1 week Hypertension: Elevated Low Back Pain: Spinal stenosis Follow Up: After seeing neurologist Nursing Intake: There are no exam notes on file for this visit. Subjective Ms. Betancourt is a 84 year old female who presents with the following complaint(s): The history is provided by the patient and a relative (2 daughters and daughter in law). No paraprofessional interpreter was used. Hypertension This is a chronic problem. The current episode started more than 1 year ago. Pertinent negatives include no chest pain, headaches, palpitations or shortness of breath. Back Pain This is a chronic problem. The current episode started more than 1 week ago. Pertinent negatives include no chest pain, no numbness, no headaches and no weakness. Mental Status Changes This is a recurrent problem. The problem occurs intermittently. Pertinent negatives include no chest pain, coughing, fatigue, headaches, numbness or weakness. Review of Systems Constitutional: Negative for fatigue and unexpected weight change. HENT: Negative for nosebleeds. Eyes: Negative for redness and visual disturbance. Respiratory: Negative for apnea, cough and shortness of breath. Cardiovascular: Negative for chest pain, palpitations and leg swelling. Genitourinary: Negative for hematuria. Musculoskeletal: Positive for back pain. Neurological: Negative for dizziness, weakness, light-headedness, numbness and headaches. Hematological: Does not bruise/bleed easily. Psychiatric/Behavioral: The patient is not nervous/anxious. PAST MEDICAL HISTORY Diagnosis Date Benign essential hypertension Cerebrovascular accident (CVA) ([facility]) Constipation Daytime somnolence Depressive disorder Disorder of eye due to type 2 diabetes mellitus Dyspnea Edema of upper extremity Fatigue Female stress incontinence Generalized anxiety disorder GERD (gastroesophageal reflux disease) Hip joint painful on movement Insomnia Insulin-treated type 2 diabetes mellitus (HCC) Mixed hyperlipidemia Muscle weakness (generalized) Obesity (BMI 30-39.9) Poor short term memory Premature beats Superficial thrombophlebitis Type 2 diabetes mellitus without complication ([facility]) Urinary tract infectious disease PAST SURGICAL HISTORY Procedure Laterality Date BLADDER SURGERY HX LIGATE FALLOPIAN TUBE REPAIR EPIGASTRIC HERNIA,REDUC REVISE MEDIAN N/CARPAL TUNNEL SURG TOTAL ABDOM HYSTERECTOMY 09/04/1983 FAMILY HISTORY Problem Relation Age of Onset Colon Cancer Brother other (myocardial infarction) Brother Social History Tobacco Use Smoking status: Never Smokeless tobacco: Never Vaping Use Vaping status: Never Used Substance Use Topics Alcohol use: Never Drug use: Never Current Outpatient Medications Medication Sig lisinopril (ZESTRIL) 20 mg tablet Take 1 tablet by mouth once daily. insulin lispro (HUMALOG KWIKPEN INSULIN) 100 unit/mL INJECT 14 UNITS SUBCUTANEOUSLY THREE TIMES DAILY BEFORE MEALS. (Patient taking differently: INJECT 18 UNITS SUBCUTANEOUSLY THREE TIMES DAILY BEFORE MEALS.) omeprazole (PRILOSEC) 40 mg capsule Take 1 capsule by mouth two times a day. insulin glargine (LANTUS SOLOSTAR U-100 INSULIN) 100 unit/mL (3 mL) Inject 18 Units subcutaneously daily at bedtime. metoprolol succinate ER (TOPROL XL) 50 mg 24 hr tablet Take 1 tablet by mouth once daily. gabapentin (NEURONTIN) 300 mg capsule Take 1 capsule by mouth two times a day. ELIQUIS 5 mg tab(s) Take 1 tablet by mouth every afternoon. mirtazapine (REMERON) 15 mg tablet Take 1 tablet by mouth daily at bedtime for 7 days, THEN 2 tablets daily at bedtime for 7 days, THEN 3 tablets daily at bedtime. phenazopyridine HCl (AZO ORAL) Take by mouth. Gummies OTC Magnesium 30 mg tablet Take 30 mg by mouth. daily POTASSIUM-99 ORAL Take by mouth. docusate sodium (COLACE) 100 mg capsule Take 1 capsule by mouth once daily as needed for constipation. ipratropium-albuterol (DUONEB) 0.5 mg-3 mg(2.5 mg base)/3 mL nebu USE 1 VIAL IN NEBULIZER 4 TIMES DAILY MEDICATION, NON-DATABASE Co q 10 b complex Calcium AND vit d MV with Dxj-Whqxtjzs-Pfjatn (CENTRUM SILVER) 0.4-300-250 mg-mcg-mcg tab Centrum Silver Tablet Centrum Silver Tablet Active 1 TAB DAILY December 23, 2015 3:40pm 12-23-2015 [facility] ([id number]) PRODIGY LANCETS MISC four times daily. blood sugar diagnostic (PRODIGY NO CODING) test strip four times daily. ondansetron orally disinteg (more content not included)... [facility] 06-11-2024 History of Present illness Narrative Images from the original note were not included. [facility] [address] [place] [address] Date of Evaluation: 06/11/2024 Patient Name: Margarita Betancourt : 1940 Chief Complaint: Patient presents with: Urinary Frequency Incontinence: Bowel and urinary. X 1 week Hypertension: Elevated Low Back Pain: Spinal stenosis Follow Up: After seeing neurologist Nursing Intake: There are no exam notes on file for this visit. Subjective Ms. Betancourt is a 84 year old female who presents with the following complaint(s): The history is provided by the patient and a relative (2 daughters and daughter in law). No paraprofessional interpreter was used. Hypertension This is a chronic problem. The current episode started more than 1 year ago. Pertinent negatives include no chest pain, headaches, palpitations or shortness of breath. Back Pain This is a chronic problem. The current episode started more than 1 week ago. Pertinent negatives include no chest pain, no numbness, no headaches and no weakness. Mental Status Changes This is a recurrent problem. The problem occurs intermittently. Pertinent negatives include no chest pain, coughing, fatigue, headaches, numbness or weakness. Review of Systems Constitutional: Negative for fatigue and unexpected weight change. HENT: Negative for nosebleeds. Eyes: Negative for redness and visual disturbance. Respiratory: Negative for apnea, cough and shortness of breath. Cardiovascular: Negative for chest pain, palpitations and leg swelling. Genitourinary: Negative for hematuria. Musculoskeletal: Positive for back pain. Neurological: Negative for dizziness, weakness, light-headedness, numbness and headaches. Hematological: Does not bruise/bleed easily. Psychiatric/Behavioral: The patient is not nervous/anxious. 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 2 diabetes mellitus Dyspnea Edema of upper extremity Fatigue Female stress incontinence Generalized anxiety disorder GERD (gastroesophageal reflux disease) Hip joint painful on movement Insomnia Insulin-treated type 2 diabetes mellitus (HCC) Mixed hyperlipidemia Muscle weakness (generalized) Obesity (BMI 30-39.9) Poor short term memory Premature beats Superficial thrombophlebitis Type 2 diabetes mellitus without complication (HCC) Urinary tract infectious disease PAST SURGICAL HISTORY Procedure Laterality Date BLADDER SURGERY HX LIGATE FALLOPIAN TUBE REPAIR EPIGASTRIC HERNIA,REDUC REVISE MEDIAN N/CARPAL TUNNEL SURG TOTAL ABDOM HYSTERECTOMY 09/04/1983 FAMILY HISTORY Problem Relation Age of Onset Colon Cancer Brother other (myocardial infarction) Brother Social History Tobacco Use Smoking status: Never Smokeless tobacco: Never Vaping Use Vaping status: Never Used Substance Use Topics Alcohol use: Never Drug use: Never Current Outpatient Medications Medication Sig lisinopril (ZESTRIL) 20 mg tablet Take 1 tablet by mouth once daily. insulin lispro (HUMALOG KWIKPEN INSULIN) 100 unit/mL INJECT 14 UNITS SUBCUTANEOUSLY THREE TIMES DAILY BEFORE MEALS. (Patient taking differently: INJECT 18 UNITS SUBCUTANEOUSLY THREE TIMES DAILY BEFORE MEALS.) omeprazole (PRILOSEC) 40 mg capsule Take 1 capsule by mouth two times a day. insulin glargine (LANTUS SOLOSTAR U-100 INSULIN) 100 unit/mL (3 mL) Inject 18 Units subcutaneously daily at bedtime. metoprolol succinate ER (TOPROL XL) 50 mg 24 hr tablet Take 1 tablet by mouth once daily. gabapentin (NEURONTIN) 300 mg capsule Take 1 capsule by mouth two times a day. ELIQUIS 5 mg tab(s) Take 1 tablet by mouth every afternoon. mirtazapine (REMERON) 15 mg tablet Take 1 tablet by mouth daily at bedtime for 7 days, THEN 2 tablets daily at bedtime for 7 days, THEN 3 tablets daily at bedtime. phenazopyridine HCl (AZO ORAL) Take by mouth. Gummies OTC Magnesium 30 mg tablet Take 30 mg by mouth. daily POTASSIUM-99 ORAL Take by mouth. docusate sodium (COLACE) 100 mg capsule Take 1 capsule by mouth once daily as needed for constipation. ipratropium-albuterol (DUONEB) 0.5 mg-3 mg(2.5 mg base)/3 mL nebu USE 1 VIAL IN NEBULIZER 4 TIMES DAILY MEDICATION, NON-DATABASE Co q 10 b complex Calcium & vit d MV with Kkg-Xlzadfqs-Qkswuu (CENTRUM SILVER) 0.4-300-250 mg-mcg-mcg tab Centrum Silver Tablet Centrum Silver Tablet Active 1 TAB DAILY December 23, 2015 3:40pm 12-23-2015 [facility] ([id number]) PRODIGY LANCETS MISC four times daily. blood sugar diagnostic (PRODIGY NO CODING) test strip four times daily. ondansetron orally disintegrating (ZOFRAN ODT) 4 mg disintegrating tablet Take 1 tablet by mouth every 8 hours as needed for nausea/vomiting. oxyCODONE-acetaminophen (PERCOCET) 5-325 mg tablet Take 1 tablet by mouth once daily as needed for pain for up to 16 days. hydrOXYzine pamoate (VISTARIL) 25 mg capsule Take 1-2 capsules by mouth daily at bedtime. (Patient not taking: Reported on 06/11/2024) QUEtiapine (SEROQUEL) 25 mg tablet TAKE 1/2 TABLET AT BEDTIME SCHEDULED, AND TAKE 1/2 TABLET DAILY NEEDED (Patient not taking: Reported on 06/11/2024) No current facility-administered medications for this visit. I have confirmed and edited as necessary the past medical, family and social histories, HPI, and ROS obtained by others. Objective BP 138/88[right arm[ Pulse 79 Temp 98 Wt 160 lb (72.6kg) SpO2 95% Physical Exam Vitals and nursing note reviewed. Constitutional: General: She is not in acute distress. Appearance: Normal appearance. She is well-developed and overweight. She is not ill-appearing. HENT: Head: Normocephalic. Nose: Nose normal. Mouth/Throat: Pharynx: Uvula midline. Eyes: General: Lids are normal. Vision grossly intact. Gaze aligned appropriately. Extraocular Movements: Extraocular movements intact. Conjunctiva/sclera: Conjunctivae normal. Pupils: Pupils are equal, round, and reactive to light. Neck: Thyroid: No thyroid mass, thyromegaly or thyroid tenderness. Trachea: Trachea and phonation normal. Cardiovascular: Rate and Rhythm: Normal rate and regular rhythm. Pulses: Normal pulses. Heart sounds: Normal heart sounds. Musculoskeletal: General: Normal range of motion. Right shoulder: Normal. Left shoulder: Normal. Cervical back: Normal, full passive range of motion without pain and neck supple. No spinous process tenderness. Thoracic back: Normal. Lumbar back: Normal. Right knee: Normal. Left knee: Normal. Right lower leg: No edema. Left lower leg: No edema. Skin: General: Skin is warm and dry. Neurological: General: No focal deficit present. Mental Status: She is alert and oriented to person, place, and time. Mental status is at baseline. Sensory: Sensation is intact. Motor: Motor function is intact. Psychiatric: Attention and Perception: Attention and perception normal. Mood and Affect: Mood normal. Speech: Speech normal. Behavior: Behavior is withdrawn. Thought Content: Thought content normal. Cognition and Memory: She exhibits impaired remote memory. Judgment: Judgment normal. Data Reviewed: Most recent labs and imaging results. ASSESSMENT/PLAN: 1. Essential (primary) hypertension - ICD9: 401.9, ICD10: I10 (primary diagnosis) - Controlled - Continue current medications - Recommend home blood pressure monitoring, to bring results to next visit - Encouraged sodium restriction, DASH or Mediterranean diet - Recommend regular aerobic exercise 2. Nausea and vomiting, unspecified vomiting type - ICD9: 787.01, ICD10: R11.2 -Continue Zofran as needed - ONDANSETRON 4 MG DISINTEGRATING TABLET 3. Urinary frequency - ICD9: 788.41, ICD10: R35.0 - Send UA for culture. - UA DIP, URINE (POC) - URINE CULTURE 4. 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 Overweight with body mass index (BMI) of 29 to 29.9 in adult - ICD9: 278.02, V85.25, ICD10: E66.3, Z68.29 6. Spinal stenosis of cervical region - ICD9: 723.0, ICD10: M48.02 - Do not feel patient and family want to go back to spine center. Family does not want patient to have surgery at this time. - Will continue patient on medication for pain to help with daily activity. - OXYCODONE-ACETAMINOPHEN 5 MG-325 MG TABLET - PARKING FOR HANDICAPPED 7. Spinal stenosis of lumbar region without neurogenic claudication - ICD9: 724.02, ICD10: M48.061 - PARKING FOR HANDICAPPED Jonn Krishnamurthy DO Return if symptoms worsen or fail to improve. Attestation: Scribe Attestation: The patient is seen and examined by Dr. Krishnamurthy and the following reflects his/her service. Scribed by Natalie Zhong June 11, 2024 2:55 PMProvider Attestation: I, Jonn Krishnamurthy DO personally performed the services described in this documentation. All medical record entries made by the scribe were at my direction and in my presence. I have reviewed the chart and discharge instructions (if applicable) and agree that the record reflects my personal performance and is accurate and complete. Electronically Signed: Jonn Krishnamurthy DO, June 11, 2024 3:03 PM documented in this encounter [facility] 05-31-2024 Telephone encounter Note Lm for pt to rtn call. [facility] 05-31-2024 Miscellaneous Notes Lm for pt to rtn call. ----- Message from Jonn Krishnamurthy DO sent at 05/31/2024 11:12 AM EDT ----- Spinal stenosis or narrowing of the spine severe causes pain and weakness documented in this encounter [facility] 05-31-2024 Telephone encounter Note ----- Message from Jonn Krishnamurthy DO sent at 05/31/2024 11:12 AM EDT ----- Spinal stenosis or narrowing of the spine severe causes pain and weakness [facility] 05-29-2024 History of Present illness Narrative John Doan M.D. ORTHOPEDIC SPINE CONSULT NOTE Date of visit: May 29, 2024 Patient Name: Ms.Pluma Jason Betancourt Date of : 1940 Current Age: [age] year old Sex: female PCP: Jonn Krishnamurthy DO Chief Complaint:Patient presents with: Spine - New HPI Ms.Pluma Jason Betancourt has a past medical history of HTN, CVA, daytime somnolence, depressive disorder, BERTA, GERD, insulin-treated type II diabetes mellitus, HLD, generalized muscle weakness, and superficial thrombophlebitis. Patient presents to the office today as a new patient with MRI and radiographic imaging for evaluation of lumbar spine. The patient is referred by Dr. Jonn Krishnamurthy, PCP, for orthopedic spine evaluation. She reports worsening low back pain that radiates into there right gluteal region down anterior right leg to renae without paresthesia. She has been utilizing a walker and wheelchair due to imbalance issues. She has had multiple falls, last fall was 1 week ago. Denies neck pain, upper extremity pain, paresthesia or weakness. Overall, the pain in her right gluteal region is most bothersome. Denies recent participation in conservative treatment. Full symptomology and conservative treatment outlined below. Patient presents to the office for image review, evaluation and plan of care. Pain: Low back Radiation: Right gluteal region to anterior right leg to renae Duration: Chronic Paresthesia: Denies Weakness: Bilateral hips Dexterity: Denies Imbalance: Endorses, falls B/B dysfcn: Bladder incontinence for 1 year. Denies saddle anesthesia PREVIOUS CONSERVATIVE TREATMENT: 1) Medication: Percocet 2) Physical therapy: No recent participation 3) Pain Management: No recent participation 4) Injections: No recent injections PREVIOUS SPINE SURGERY: Denies Surgical Risk Factors: Smoking status: Denies Anticoagulants/antiplatelets: Eliquis Diabetic: Yes, last hgbA1c 9.1% from 11/24/2023 BMI: 29.08 REVIEW OF SYSTEMS: Review of Systems Constitutional: Negative for chills, fatigue, fever and unexpected weight change. HENT: Negative for trouble swallowing and voice change. Eyes: Negative for visual disturbance. Respiratory: Negative for shortness of breath, wheezing and stridor. Cardiovascular: Negative for chest pain, palpitations and leg swelling. Gastrointestinal: Negative for diarrhea, nausea and vomiting. Endocrine: Negative for cold intolerance and heat intolerance. Genitourinary: Negative for difficulty urinating, dysuria and urgency. Musculoskeletal: Positive for back pain and gait problem. Negative for neck pain. Skin: Negative for color change and pallor. Allergic/Immunologic: Negative for immunocompromised state. Neurological: Positive for weakness. Negative for speech difficulty, numbness and headaches. Hematological: Does not bruise/bleed easily. Psychiatric/Behavioral: Negative for agitation, behavioral problems and confusion. OBJECTIVE: BP 157/90 (BP Site: Right Arm, BP Position: Sitting, BP Cuff Size: Large Adult) Pulse 75 Resp 16 LMP (LMP Unknown) SpO2 95% PHYSICAL EXAM: 5/5 motor strength in BUE and BLE 4/5 bilateral hip flexion, +right hoffmanns, utilizes walker and wheelchair Data Review: MRI of lumbar spine WO contrast from 05/29/2024: L3-L4 moderate stenosis L4-L5 severe stenosis Scoliosis films from 05/10/2024: RESULT: Counting reference: Lumbosacral junction. For the purposes of this report, L4-5 is considered the level of the iliac crest. 12 paired ribs, vertebral body articulating with the first set of ribs designated T1. Rightward curvature lower thoracic/lumbar spine, Andrade angle 20.7 degrees T12-L4 Additional mild 5 degrees rightward curvature throughout the thoracic spine T4-T8 Positive sagittal balance Severe anterior wedge compression deformity T12, 45% height loss anteriorly Mild anterior wedge T3 compression deformity Multilevel disc and facet degenerative changes Hiatal hernia. Arterial calcifications Partially seen right femoral hardware Cervical spine radiographs from 05/10/2024. IMPRESSION: 1. Degenerative disc disease at C5-6 and C6-7 and to a lesser degree C4-5. 2. No evidence of spinal instability on flexion or extension. 3. Bones are of diffusely decreased density. ASSESSMENT/PLAN Margarita Betancourt will continue with medical management of his/her condition. Patient presents with right leg radiculopathy. However she has had worsening balance issues and hand dexterity issues over the last few months. There is cervical spondylosis noted on her radiographs of the cervical spine. MRI of the lumbar spine does demonstrate L4-5 stenosis. I recommend obtaining a cervical MRI without contrast to rule out tandem stenosis contributing to cervical myelopathy symptoms. Follow-up after advanced imaging. MRI of cervical spine WO contrast, follow-up after Attribution The following portions of the patient's history were reviewed, confirmed, and updated as necessary: allergies, current medications, past family history, past medical history, past social history, past surgical history, problem list, HPI, and ROS obtained by others.The following information can be found in electronic health record. Some elements may be copied from a previous office note and have been reviewed/updated where appropriate. All portions reflect current medical decision making from today. The clinical and radiographic findings as well as the risks, benefits and alternatives of treatment have been reviewed in detail with the patient. Advised to call the office if symptoms worsen or new symptoms develop.Patient expressed understanding and is in agreement with plan. John Doan MD Department of Orthopaedics [facility] This note was partially generated using [employer] voice recognition system, and there may be some incorrect words, spellings, and punctuation that were not noted in checking the note before saving. documented in this encounter [facility] 05-29-2024 Note HNO ID: [id number] Author: JOHN DOAN MD Service: ? Author Type: Physician Type: Progress Notes Filed: 05/29/2024 13:55 Note Text: John Doan M.D. ORTHOPEDIC SPINE CONSULT NOTE Date of visit: May 29, 2024 Patient Name: Ms.Pluma Jason Betancourt Date of : 1940 Current Age: [age] year old Sex: female PCP: Jonn Krishnamurthy DO Chief Complaint:Patient presents with: Spine - New HPI Ms.Pluma Jason Betancourt has a past medical history of HTN, CVA, daytime somnolence, depressive disorder, BERTA, GERD, insulin-treated type II diabetes mellitus, HLD, generalized muscle weakness, and superficial thrombophlebitis. Patient presents to the office today as a new patient with MRI and radiographic imaging for evaluation of lumbar spine. The patient is referred by Dr. Jonn Krishnamurthy, PCP, for orthopedic spine evaluation. She reports worsening low back pain that radiates into there right gluteal region down anterior right leg to renae without paresthesia. She has been utilizing a walker and wheelchair due to imbalance issues. She has had multiple falls, last fall was 1 week ago. Denies neck pain, upper extremity pain, paresthesia or weakness. Overall, the pain in her right gluteal region is most bothersome. Denies recent participation in conservative treatment. Full symptomology and conservative treatment outlined below. Patient presents to the office for image review, evaluation and plan of care. Pain: Low back Radiation: Right gluteal region to anterior right leg to renae Duration: Chronic Paresthesia: Denies Weakness: Bilateral hips Dexterity: Denies Imbalance: Endorses, falls B/B dysfcn: Bladder incontinence for 1 year. Denies saddle anesthesia PREVIOUS CONSERVATIVE TREATMENT: 1) Medication: Percocet 2) Physical therapy: No recent participation 3) Pain Management: No recent participation 4) Injections: No recent injections PREVIOUS SPINE SURGERY: Denies Surgical Risk Factors: Smoking status: Denies Anticoagulants/antiplatelets: Eliquis Diabetic: Yes, last hgbA1c 9.1% from 11/24/2023 BMI: 29.08 REVIEW OF SYSTEMS: Review of Systems Constitutional: Negative for chills, fatigue, fever and unexpected weight change. HENT: Negative for trouble swallowing and voice change. Eyes: Negative for visual disturbance. Respiratory: Negative for shortness of breath, wheezing and stridor. Cardiovascular: Negative for chest pain, palpitations and leg swelling. Gastrointestinal: Negative for diarrhea, nausea and vomiting. Endocrine: Negative for cold intolerance and heat intolerance. Genitourinary: Negative for difficulty urinating, dysuria and urgency. Musculoskeletal: Positive for back pain and gait problem. Negative for neck pain. Skin: Negative for color change and pallor. Allergic/Immunologic: Negative for immunocompromised state. Neurological: Positive for weakness. Negative for speech difficulty, numbness and headaches. Hematological: Does not bruise/bleed easily. Psychiatric/Behavioral: Negative for agitation, behavioral problems and confusion. OBJECTIVE: BP 157/90 (BP Site: Right Arm, BP Position: Sitting, BP Cuff Size: Large Adult) Pulse 75 Resp 16 LMP (LMP Unknown) SpO2 95% PHYSICAL EXAM: 5/5 motor strength in BUE and BLE 4/5 bilateral hip flexion, +right hoffmanns, utilizes walker and wheelchair Data Review: MRI of lumbar spine WO contrast from 05/29/2024: L3-L4 moderate stenosis L4-L5 severe stenosis Scoliosis films from 05/10/2024: RESULT: Counting reference: Lumbosacral junction. For the purposes of this report, L4-5 is considered the level of the iliac crest. 12 paired ribs, vertebral body articulating with the first set of ribs designated T1. Rightward curvature lower thoracic/lumbar spine, Andrade angle 20.7 degrees T12-L4 Additional mild 5 degrees rightward curvature throughout the thoracic spine T4-T8 Positive sagittal balance Severe anterior wedge compression deformity T12, 45% height loss anteriorly Mild anterior wedge T3 compression deformity Multilevel disc and facet degenerative changes Hiatal hernia. Arterial calcifications Partially seen right femoral hardware Cervical spine radiographs from 05/10/2024. IMPRESSION: 1. Degenerative disc disease at C5-6 and C6-7 and to a lesser degree C4-5. 2. No evidence of spinal instability on flexion or extension. 3. Bones are of diffusely decreased density. ASSESSMENT/PLAN Margarita Betancourt will continue with medical management of his/her condition. Patient presents with right leg radiculopathy. However she has had worsening balance issues and hand dexterity issues over the last few months. There is cervical spondylosis noted on her radiographs of the cervical spine. MRI of the lumbar spine does demonstrate L4-5 stenosis. I recommend obtaining a cervical MRI without contrast to rule out tandem stenosis contributing to cervical myelopathy symptoms. Follow-up aft (more content not included)... [facility] 05-23-2024 Note HNO ID: [id number] Author: JONN KRISHNAMURTHY DO Service: ? Author Type: Physician Type: Progress Notes Filed: 06/02/2024 15:11 Note Text: [facility] Jonn Krishnamurthy DO [address] [place] [address] Date of Evaluation: 05/23/2024 Patient Name: Margarita Betancourt : 1940 Chief Complaint: Patient presents with: Pain: /Difficult to get up out of bed Hips and low back pain - MRI 05/29 Xrays in chart - neck and back Nursing Intake: There are no exam notes on file for this visit. Subjective Ms. Betancourt is a 84 year old female who presents with the following complaint(s): The history is provided by the patient and a relative (daughter in law). Hypertension This is a chronic problem. The current episode started more than 1 year ago. Pertinent negatives include no chest pain, headaches, palpitations or shortness of breath. Back Pain This is a chronic problem. The problem occurs daily. The problem has not changed since onset.The pain is associated with no known injury. The pain is present in the lumbar spine. The pain is severe. The symptoms are aggravated by twisting and bending. Pertinent negatives include no chest pain, no numbness, no headaches and no weakness. Hip Pain The pain is present in the right hip and left hip. This is a chronic problem. There has been no history of extremity trauma. The problem occurs daily. The problem has been unchanged. Pertinent negatives include no numbness. Hypercholesterolemia This is a chronic problem. The current episode started more than 1 year ago. Associated symptoms include myalgias. Pertinent negatives include no chest pain or shortness of breath. GERD She complains of heartburn. She reports no chest pain or no coughing. This is a chronic problem. The current episode started more than 1 year ago. Associated symptoms include fatigue. Depression Pertinent negatives include no weakness. This is a new problem. The problem is unchanged. Past treatments include nothing. Review of Systems Constitutional: Positive for activity change, appetite change and fatigue. Negative for unexpected weight change. Patient daughter in law states that she says that she just wants to lay in bed and HENT: Negative for nosebleeds. Eyes: Negative for redness and visual disturbance. Respiratory: Negative for apnea, cough and shortness of breath. Cardiovascular: Negative for chest pain, palpitations and leg swelling. Gastrointestinal: Positive for heartburn. Genitourinary: Negative for hematuria. Musculoskeletal: Positive for arthralgias, back pain and myalgias. Chronic pain- back , hips. Neurological: Negative for dizziness, weakness, light-headedness, numbness and headaches. Memory loss Hematological: Does not bruise/bleed easily. Psychiatric/Behavioral: Positive for depression and sleep disturbance. The patient is not nervous/anxious. PAST MEDICAL HISTORY Diagnosis Date Benign essential hypertension Cerebrovascular accident (CVA) ([facility]) Constipation Daytime somnolence Depressive disorder Disorder of eye due to type 2 diabetes mellitus Dyspnea Edema of upper extremity Fatigue Female stress incontinence Generalized anxiety disorder GERD (gastroesophageal reflux disease) Hip joint painful on movement Insomnia Insulin-treated type 2 diabetes mellitus (HCC) Mixed hyperlipidemia Muscle weakness (generalized) Obesity (BMI 30-39.9) Poor short term memory Premature beats Superficial thrombophlebitis Type 2 diabetes mellitus without complication ([facility]) Urinary tract infectious disease PAST SURGICAL HISTORY Procedure Laterality Date BLADDER SURGERY HX LIGATE FALLOPIAN TUBE REPAIR EPIGASTRIC HERNIA,REDUC REVISE MEDIAN N/CARPAL TUNNEL SURG TOTAL ABDOM HYSTERECTOMY 09/04/1983 FAMILY HISTORY Problem Relation Age of Onset Colon Cancer Brother other (myocardial infarction) Brother Social History Tobacco Use Smoking status: Never Smokeless tobacco: Never Vaping Use Vaping status: Never Used Substance Use Topics Alcohol use: Never Drug use: Never Current Outpatient Medications Medication Sig phenazopyridine HCl (AZO ORAL) Take by mouth. Gummies OTC Magnesium 30 mg tablet Take 30 mg by mouth two times a day. POTASSIUM-99 ORAL Take by mouth. ipratropium-albuterol (DUONEB) 0.5 mg-3 mg(2.5 mg base)/3 mL nebu USE 1 VIAL IN NEBULIZER 4 TIMES DAILY MEDICATION, NON-DATABASE Co q 10 b complex Calcium AND vit d MV with Osf-Skpnaxny-Szglic (CENTRUM SILVER) 0.4-300-250 mg-mcg-mcg tab Centrum Silver Tablet Centrum Silver Tablet Active 1 TAB DAILY December 23, 2015 3:40pm 12-23-2015 [facility] ([id number]) lisinopril (ZESTRIL) 20 mg tablet Take 1 tablet by mouth once daily. insulin lispro (HUMALOG KWIKPEN INSULIN) 100 unit/mL INJECT 14 UNITS SUBCUTANEO (more content not included)... [facility] 05-23-2024 History of Present illness Narrative Images from the original note were not included. [facility] [address] [facility] [place] [address] Date of Evaluation: 05/23/2024 Patient Name: Margarita Betancourt : 1940 Chief Complaint: Patient presents with: Pain: /Difficult to get up out of bed Hips and low back pain - MRI 05/29 Xrays in chart - neck and back Nursing Intake: There are no exam notes on file for this visit. Subjective Ms. Betancourt is a 84 year old female who presents with the following complaint(s): The history is provided by the patient and a relative (daughter in law). Hypertension This is a chronic problem. The current episode started more than 1 year ago. Pertinent negatives include no chest pain, headaches, palpitations or shortness of breath. Back Pain This is a chronic problem. The problem occurs daily. The problem has not changed since onset.The pain is associated with no known injury. The pain is present in the lumbar spine. The pain is severe. The symptoms are aggravated by twisting and bending. Pertinent negatives include no chest pain, no numbness, no headaches and no weakness. Hip Pain The pain is present in the right hip and left hip. This is a chronic problem. There has been no history of extremity trauma. The problem occurs daily. The problem has been unchanged. Pertinent negatives include no numbness. Hypercholesterolemia This is a chronic problem. The current episode started more than 1 year ago. Associated symptoms include myalgias. Pertinent negatives include no chest pain or shortness of breath. GERD She complains of heartburn. She reports no chest pain or no coughing. This is a chronic problem. The current episode started more than 1 year ago. Associated symptoms include fatigue. Depression Pertinent negatives include no weakness. This is a new problem. The problem is unchanged. Past treatments include nothing. Review of Systems Constitutional: Positive for activity change, appetite change and fatigue. Negative for unexpected weight change. Patient daughter in law states that she says that she just wants to lay in bed and HENT: Negative for nosebleeds. Eyes: Negative for redness and visual disturbance. Respiratory: Negative for apnea, cough and shortness of breath. Cardiovascular: Negative for chest pain, palpitations and leg swelling. Gastrointestinal: Positive for heartburn. Genitourinary: Negative for hematuria. Musculoskeletal: Positive for arthralgias, back pain and myalgias. Chronic pain- back , hips. Neurological: Negative for dizziness, weakness, light-headedness, numbness and headaches. Memory loss Hematological: Does not bruise/bleed easily. Psychiatric/Behavioral: Positive for depression and sleep disturbance. The patient is not nervous/anxious. PAST MEDICAL HISTORY Diagnosis Date Benign essential hypertension Cerebrovascular accident (CVA) ([facility]) Constipation Daytime somnolence Depressive disorder Disorder of eye due to type 2 diabetes mellitus Dyspnea Edema of upper extremity Fatigue Female stress incontinence Generalized anxiety disorder GERD (gastroesophageal reflux disease) Hip joint painful on movement Insomnia Insulin-treated type 2 diabetes mellitus (HCC) Mixed hyperlipidemia Muscle weakness (generalized) Obesity (BMI 30-39.9) Poor short term memory Premature beats Superficial thrombophlebitis Type 2 diabetes mellitus without complication (HCC) Urinary tract infectious disease PAST SURGICAL HISTORY Procedure Laterality Date BLADDER SURGERY HX LIGATE FALLOPIAN TUBE REPAIR EPIGASTRIC HERNIA,REDUC REVISE MEDIAN N/CARPAL TUNNEL SURG TOTAL ABDOM HYSTERECTOMY 09/04/1983 FAMILY HISTORY Problem Relation Age of Onset Colon Cancer Brother other (myocardial infarction) Brother Social History Tobacco Use Smoking status: Never Smokeless tobacco: Never Vaping Use Vaping status: Never Used Substance Use Topics Alcohol use: Never Drug use: Never Current Outpatient Medications Medication Sig phenazopyridine HCl (AZO ORAL) Take by mouth. Gummies OTC Magnesium 30 mg tablet Take 30 mg by mouth two times a day. POTASSIUM-99 ORAL Take by mouth. ipratropium-albuterol (DUONEB) 0.5 mg-3 mg(2.5 mg base)/3 mL nebu USE 1 VIAL IN NEBULIZER 4 TIMES DAILY MEDICATION, NON-DATABASE Co q 10 b complex Calcium & vit d MV with Syk-Jzktzdiv-Cbqvgu (CENTRUM SILVER) 0.4-300-250 mg-mcg-mcg tab Centrum Silver Tablet Centrum Silver Tablet Active 1 TAB DAILY December 23, 2015 3:40pm 12-23-2015 [facility] ([id number]) lisinopril (ZESTRIL) 20 mg tablet Take 1 tablet by mouth once daily. insulin lispro (HUMALOG KWIKPEN INSULIN) 100 unit/mL INJECT 14 UNITS SUBCUTANEOUSLY THREE TIMES DAILY BEFORE MEALS. omeprazole (PRILOSEC) 40 mg capsule Take 1 capsule by mouth two times a day. insulin glargine (LANTUS SOLOSTAR U-100 INSULIN) 100 unit/mL (3 mL) Inject 18 Units subcutaneously daily at bedtime. metoprolol succinate ER (TOPROL XL) 50 mg 24 hr tablet Take 1 tablet by mouth once daily. gabapentin (NEURONTIN) 300 mg capsule Take 1 capsule by mouth two times a day. ELIQUIS 5 mg tab(s) Take 1 tablet by mouth every afternoon. mirtazapine (REMERON) 15 mg tablet Take 1 tablet by mouth daily at bedtime for 7 days, THEN 2 tablets daily at bedtime for 7 days, THEN 3 tablets daily at bedtime. oxyCODONE-acetaminophen (PERCOCET) 5-325 mg tablet Take 1 tablet by mouth every 6 hours as needed for pain for up to 7 days. ondansetron orally disintegrating (ZOFRAN ODT) 4 mg disintegrating tablet Take 1 tablet by mouth every 8 hours as needed for nausea/vomiting. hydrOXYzine pamoate (VISTARIL) 25 mg capsule Take 1-2 capsules by mouth daily at bedtime. docusate sodium (COLACE) 100 mg capsule Take 1 capsule by mouth once daily as needed for constipation. QUEtiapine (SEROQUEL) 25 mg tablet TAKE 1/2 TABLET AT BEDTIME SCHEDULED, AND TAKE 1/2 TABLET DAILY NEEDED (Patient not taking: Reported on 01/13/2023) PRODIGY LANCETS MISC four times daily. blood sugar diagnostic (PRODIGY NO CODING) test strip four times daily. No current facility-administered medications for this visit. I have confirmed and edited as necessary the past medical, family and social histories, HPI, and ROS obtained by others. Objective BP 120/88 Pulse 76 SpO2 96% Physical Exam Vitals and nursing note reviewed. Constitutional: General: She is not in acute distress. Appearance: Normal appearance. She is well-developed and overweight. She is not ill-appearing. Comments: In wheelchair today HENT: Head: Normocephalic. Nose: Nose normal. Mouth/Throat: Mouth: Mucous membranes are moist. Pharynx: Oropharynx is clear. Uvula midline. No oropharyngeal exudate or posterior oropharyngeal erythema. Eyes: General: Lids are normal. Vision grossly intact. Gaze aligned appropriately. No scleral icterus. Right eye: No discharge. Left eye: No discharge. Extraocular Movements: Extraocular movements intact. Conjunctiva/sclera: Conjunctivae normal. Pupils: Pupils are equal, round, and reactive to light. Neck: Thyroid: No thyroid mass, thyromegaly or thyroid tenderness. Vascular: No carotid bruit. Trachea: Trachea and phonation normal. Cardiovascular: Rate and Rhythm: Normal rate and regular rhythm. Pulses: Normal pulses. Heart sounds: Normal heart sounds. Musculoskeletal: General: Normal range of motion. Right shoulder: Normal. Left shoulder: Normal. Cervical back: Normal, full passive range of motion without pain and neck supple. No tenderness. No spinous process tenderness. Thoracic back: Normal. Lumbar back: Normal. Right knee: Normal. Left knee: Normal. Right lower leg: No edema. Left lower leg: No edema. Lymphadenopathy: Cervical: No cervical adenopathy. Skin: General: Skin is warm and dry. Neurological: General: No focal deficit present. Mental Status: She is alert and oriented to person, place, and time. Mental status is at baseline. Sensory: Sensation is intact. Motor: Motor function is intact. Psychiatric: Attention and Perception: Attention and perception normal. Mood and Affect: Mood normal. Speech: Speech normal. Behavior: Behavior normal. Thought Content: Thought content normal. Judgment: Judgment normal. Data Reviewed: Most recent labs ASSESSMENT/PLAN: 1. Essential (primary) hypertension - ICD9: 401.9, ICD10: I10 (primary diagnosis) - Controlled - Continue current medications - Recommend home blood pressure monitoring, to bring results to next visit - Encouraged sodium restriction, DASH or Mediterranean diet - Recommend regular aerobic exercise - LISINOPRIL 20 MG TABLET 2. Insulin-treated type 2 diabetes mellitus (HCC) - ICD9: 250.00, V58.67, ICD10: E11.9, Z79.4 - Continue current medications - INSULIN LISPRO (U-100) 100 UNIT/ML SUBCUTANEOUS PEN - LANTUS SOLOSTAR U-100 INSULIN 100 UNIT/ML (3 ML) SUBCUTANEOUS PEN 3. Gastro-esophageal reflux disease without esophagitis - ICD9: 530.81, ICD10: K21.9 - OMEPRAZOLE 40 MG CAPSULE,DELAYED RELEASE 4. Hyperlipidemia, mixed - ICD9: 272.2, ICD10: E78.2 5. 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 6. Overweight with body mass index (BMI) of 29 to 29.9 in adult - ICD9: 278.02, V85.25, ICD10: E66.3, Z68.29 7. Spinal stenosis of lumbar region without neurogenic claudication - ICD9: 724.02, ICD10: M48.061 8. Chronic pain syndrome - ICD9: 338.4, ICD10: G89.4 9. Bilateral hip pain - ICD9: 719.45, ICD10: M25.551, M25.552 - Continue pain medication as needed until patient has upcoming appointment with pain management. - OXYCODONE-ACETAMINOPHEN 5 MG-325 MG TABLET 10. Chronic midline low back pain without sciatica - ICD9: 724.2, 338.29, ICD10: M54.50, G89.29 - OXYCODONE-ACETAMINOPHEN 5 MG-325 MG TABLET 11. Other depression - ICD9: 311, ICD10: F32.89 - Start Remeron. - MIRTAZAPINE 15 MG TABLET 12. Decreased appetite - ICD9: 783.0, ICD10: R63.0 - Start Remeron. - MIRTAZAPINE 15 MG TABLET Jonn Krishnamurthy, DO Return if symptoms worsen or fail to improve. Attestation: Scribe Attestation: The patient is seen and examined by Dr. Krishnamurthy and the following reflects his/her service. Scribed by Natalie Zhong May 23, 2024 11:19 Ayo Attestation: I, Jonn Krishnamurthy, DO personally performed the services described in this documentation. All medical record entries made by the scribe were at my direction and in my presence. I have reviewed the chart and discharge instructions (if applicable) and agree that the record reflects my personal performance and is accurate and complete. Electronically Signed: Jonn Krishnamurthy DO, May 23, 2024 11:28 AM documented in this encounter [facility] 05-08-2024 Telephone encounter Note Patient is scheduled to see Dr. Doan on 05/10/2024. Upon chart review, appears MRI of lumbar spine was not obtained nor was scoliosis films or cervical radiographs obtained. Attempted to reach patient's daughter Estefany to further discuss, no answer. Unable to leave voice message as voicemail box is full. Krystin Alcala RN [facility] 05-08-2024 Miscellaneous Notes Patient is scheduled to see Dr. Doan on 05/10/2024. Upon chart review, appears MRI of lumbar spine was not obtained nor was scoliosis films or cervical radiographs obtained. Attempted to reach patient's daughter Estefany to further discuss, no answer. Unable to leave voice message as voicemail box is full. Krystin Alcala RN documented in this encounter [facility] 04-19-2024 Telephone encounter Note 04/19/24: LVM for Pt to [facility] regarding referral for appt. [facility] 04-19-2024 Miscellaneous Notes 04/19/24: LVM for Pt to [facility] regarding referral for appt. documented in this encounter [facility] 04-19-2024 Note HNO ID: [id number] Author: JONN KRISHNAMURTHY DO Service: ? Author Type: Physician Type: Progress Notes Filed: 04/21/2024 18:45 Note Text: [facility] [place] DO Wenceslao [address] [place] [address] Date of Evaluation: 04/19/2024 Patient Name: Margarita Betancourt : 1940 Chief Complaint: Patient presents with: Pain: Bilat hip pain Fallen 3 times - ER visits Xrays completed - no fx Pain to ambulate Only going from bed to chair - chair to bed Nursing Intake: There are no exam notes on file for this visit. Subjective Ms. Betancourt is a 84 year old female who presents with the following complaint(s): The history is provided by the patient. Hip Pain This is a chronic problem. The problem occurs daily. The problem has been gradually worsening. The pain is moderate. Associated symptoms include an inability to bear weight. Pertinent negatives include no fever or numbness. Fall The accident occurred More than 1 week ago (recurrent falls). Pertinent negatives include no fever, no numbness, no hematuria and no headaches. Hypertension This is a chronic problem. The current episode started more than 1 year ago. Pertinent negatives include no chest pain, headaches, palpitations or shortness of breath. Review of Systems Constitutional: Negative for fatigue, fever and unexpected weight change. HENT: Negative for nosebleeds. Eyes: Negative for redness and visual disturbance. Respiratory: Negative for apnea, cough and shortness of breath. Cardiovascular: Negative for chest pain, palpitations and leg swelling. Genitourinary: Negative for hematuria. Neurological: Negative for dizziness, weakness, light-headedness, numbness and headaches. Hematological: Does not bruise/bleed easily. Psychiatric/Behavioral: The patient is not nervous/anxious. PAST MEDICAL HISTORY No date: Benign essential hypertension No date: Cerebrovascular accident (CVA) (HCC) No date: Constipation No date: Daytime somnolence No date: Depressive disorder No date: Disorder of eye Comment: due to type 2 diabetes mellitus No date: Dyspnea No date: Edema of upper extremity No date: Fatigue No date: Female stress incontinence No date: Generalized anxiety disorder No date: GERD (gastroesophageal reflux disease) No date: Hip joint painful on movement No date: Insomnia No date: Insulin-treated type 2 diabetes mellitus (HCC) No date: Mixed hyperlipidemia No date: Muscle weakness (generalized) No date: Obesity (BMI 30-39.9) No date: Poor short term memory No date: Premature beats No date: Superficial thrombophlebitis No date: Type 2 diabetes mellitus without complication (HCC) No date: Urinary tract infectious disease PAST SURGICAL HISTORY No date: BLADDER SURGERY HX No date: LIGATE FALLOPIAN TUBE No date: REPAIR EPIGASTRIC HERNIA,REDUC No date: REVISE MEDIAN N/CARPAL TUNNEL SURG 09/04/1983: TOTAL ABDOM HYSTERECTOMY FAMILY HISTORY Problem Relation Age of Onset Colon Cancer Brother other (myocardial infarction) Brother Social History Tobacco Use Smoking status: Never Smokeless tobacco: Never Vaping Use Vaping Use: Never used Substance Use Topics Alcohol use: Never Drug use: Never Current Outpatient Medications Medication Sig insulin glargine (LANTUS SOLOSTAR U-100 INSULIN) 100 unit/mL (3 mL) INJECT 18 UNITS SUBCUTANEOUSLY DAILY AT BEDTIME. insulin lispro (HUMALOG KWIKPEN INSULIN) 100 unit/mL INJECT 14 UNITS SUBCUTANEOUSLY THREE TIMES DAILY BEFORE MEALS. hydrOXYzine pamoate (VISTARIL) 25 mg capsule Take 1-2 capsules by mouth daily at bedtime. Magnesium 30 mg tablet Take 30 mg by mouth two times a day. ELIQUIS 5 mg tab(s) Take 1 tablet by mouth every afternoon. docusate sodium (COLACE) 100 mg capsule Take 1 capsule by mouth once daily as needed for constipation. gabapentin (NEURONTIN) 300 mg capsule Take 1 capsule by mouth twice daily for 90 days. lisinopril (ZESTRIL) 20 mg tablet Take 1 tablet by mouth once daily. metoprolol succinate ER (TOPROL XL) 50 mg 24 hr tablet TAKE 1 TABLET BY MOUTH EVERY DAY omeprazole (PRILOSEC) 40 mg capsule TAKE 1 CAPSULE BY MOUTH TWICE A DAY oxyCODONE-acetaminophen (PERCOCET) 5-325 mg tablet Take 1 tablet by mouth every 6 hours as needed for pain for up to 7 days. Take 1/2 pill in the morning and 1/2 pill in at night. phenazopyridine HCl (AZO ORAL) Take by mouth. Gummies OTC ondansetron orally disintegrating (ZOFRAN ODT) 4 mg disintegrating tablet Take 1 tablet by mouth every 8 hours as needed for nausea/vomiting. POTASSIUM-99 ORAL Take by mouth. ipratropium-albuterol (DUONEB) 0.5 mg-3 mg(2.5 mg base)/3 mL nebu USE 1 VIAL IN NEBULIZER 4 TIMES DAILY MEDICATION, NON-DATABASE Co q 10 b complex Calcium AND vit d QUEtiapine (SEROQUEL) 25 mg tablet TAKE 1/2 TABLET AT BEDTIME SCHEDULED, AND TAKE (more content not included)... [facility] 04-19-2024 History of Present illness Narrative Images from the original note were not included. [facility] [place] DO Wenceslao [address] [place] [address] Date of Evaluation: 04/19/2024 Patient Name: Margarita Betancourt : 1940 Chief Complaint: Patient presents with: Pain: Bilat hip pain Fallen 3 times - ER visits Xrays completed - no fx Pain to ambulate Only going from bed to chair - chair to bed Nursing Intake: There are no exam notes on file for this visit. Subjective Ms. Betancourt is a 84 year old female who presents with the following complaint(s): The history is provided by the patient. Hip Pain This is a chronic problem. The problem occurs daily. The problem has been gradually worsening. The pain is moderate. Associated symptoms include an inability to bear weight. Pertinent negatives include no fever or numbness. Fall The accident occurred More than 1 week ago (recurrent falls). Pertinent negatives include no fever, no numbness, no hematuria and no headaches. Hypertension This is a chronic problem. The current episode started more than 1 year ago. Pertinent negatives include no chest pain, headaches, palpitations or shortness of breath. Review of Systems Constitutional: Negative for fatigue, fever and unexpected weight change. HENT: Negative for nosebleeds. Eyes: Negative for redness and visual disturbance. Respiratory: Negative for apnea, cough and shortness of breath. Cardiovascular: Negative for chest pain, palpitations and leg swelling. Genitourinary: Negative for hematuria. Neurological: Negative for dizziness, weakness, light-headedness, numbness and headaches. Hematological: Does not bruise/bleed easily. Psychiatric/Behavioral: The patient is not nervous/anxious. PAST MEDICAL HISTORY No date: Benign essential hypertension No date: Cerebrovascular accident (CVA) ([facility]) No date: Constipation No date: Daytime somnolence No date: Depressive disorder No date: Disorder of eye Comment: due to type 2 diabetes mellitus No date: Dyspnea No date: Edema of upper extremity No date: Fatigue No date: Female stress incontinence No date: Generalized anxiety disorder No date: GERD (gastroesophageal reflux disease) No date: Hip joint painful on movement No date: Insomnia No date: Insulin-treated type 2 diabetes mellitus ([facility]) No date: Mixed hyperlipidemia No date: Muscle weakness (generalized) No date: Obesity (BMI 30-39.9) No date: Poor short term memory No date: Premature beats No date: Superficial thrombophlebitis No date: Type 2 diabetes mellitus without complication ([facility]) No date: Urinary tract infectious disease PAST SURGICAL HISTORY No date: BLADDER SURGERY HX No date: LIGATE FALLOPIAN TUBE No date: REPAIR EPIGASTRIC HERNIA,REDUC No date: REVISE MEDIAN N/CARPAL TUNNEL SURG 09/04/1983: TOTAL ABDOM HYSTERECTOMY FAMILY HISTORY Problem Relation Age of Onset Colon Cancer Brother other (myocardial infarction) Brother Social History Tobacco Use Smoking status: Never Smokeless tobacco: Never Vaping Use Vaping Use: Never used Substance Use Topics Alcohol use: Never Drug use: Never Current Outpatient Medications Medication Sig insulin glargine (LANTUS SOLOSTAR U-100 INSULIN) 100 unit/mL (3 mL) INJECT 18 UNITS SUBCUTANEOUSLY DAILY AT BEDTIME. insulin lispro (HUMALOG KWIKPEN INSULIN) 100 unit/mL INJECT 14 UNITS SUBCUTANEOUSLY THREE TIMES DAILY BEFORE MEALS. hydrOXYzine pamoate (VISTARIL) 25 mg capsule Take 1-2 capsules by mouth daily at bedtime. Magnesium 30 mg tablet Take 30 mg by mouth two times a day. ELIQUIS 5 mg tab(s) Take 1 tablet by mouth every afternoon. docusate sodium (COLACE) 100 mg capsule Take 1 capsule by mouth once daily as needed for constipation. gabapentin (NEURONTIN) 300 mg capsule Take 1 capsule by mouth twice daily for 90 days. lisinopril (ZESTRIL) 20 mg tablet Take 1 tablet by mouth once daily. metoprolol succinate ER (TOPROL XL) 50 mg 24 hr tablet TAKE 1 TABLET BY MOUTH EVERY DAY omeprazole (PRILOSEC) 40 mg capsule TAKE 1 CAPSULE BY MOUTH TWICE A DAY oxyCODONE-acetaminophen (PERCOCET) 5-325 mg tablet Take 1 tablet by mouth every 6 hours as needed for pain for up to 7 days. Take 1/2 pill in the morning and 1/2 pill in at night. phenazopyridine HCl (AZO ORAL) Take by mouth. Gummies OTC ondansetron orally disintegrating (ZOFRAN ODT) 4 mg disintegrating tablet Take 1 tablet by mouth every 8 hours as needed for nausea/vomiting. POTASSIUM-99 ORAL Take by mouth. ipratropium-albuterol (DUONEB) 0.5 mg-3 mg(2.5 mg base)/3 mL nebu USE 1 VIAL IN NEBULIZER 4 TIMES DAILY MEDICATION, NON-DATABASE Co q 10 b complex Calcium & vit d QUEtiapine (SEROQUEL) 25 mg tablet TAKE 1/2 TABLET AT BEDTIME SCHEDULED, AND TAKE 1/2 TABLET DAILY NEEDED (Patient not taking: Reported on 01/13/2023) MV with Upt-Dbsxpiax-Hfoerd (CENTRUM SILVER) 0.4-300-250 mg-mcg-mcg tab Centrum Silver Tablet Centrum Silver Tablet Active 1 TAB DAILY December 23, 2015 3:40pm 12-23-2015 [facility] ([id number]) magnesium hydroxide (MOM) 400 mg/5 mL suspension Take by mouth as needed. (Patient not taking: Reported on 01/13/2023) PRODIGY LANCETS MISC four times daily. blood sugar diagnostic (PRODIGY NO CODING) test strip four times daily. citalopram (CELEXA) 40 mg tablet Take 40 mg by mouth q 24 HR. (Patient not taking: Reported on 01/13/2023) No current facility-administered medications for this visit. I have confirmed and edited as necessary the past medical, family and social histories, HPI, and ROS obtained by others. Objective BP 122/80 Pulse 87 Ht 5' 2 (1.58m) Wt 159 lb (72.1kg) SpO2 94% BMI 29.07 kg/(m^2). Physical Exam Vitals and nursing note reviewed. Constitutional: General: She is not in acute distress. Appearance: Normal appearance. She is well-developed. She is not ill-appearing. HENT: Head: Normocephalic. Nose: Nose normal. Mouth/Throat: Pharynx: Uvula midline. Eyes: General: Lids are normal. Vision grossly intact. Gaze aligned appropriately. No scleral icterus. Right eye: No discharge. Left eye: No discharge. Extraocular Movements: Extraocular movements intact. Conjunctiva/sclera: Conjunctivae normal. Pupils: Pupils are equal, round, and reactive to light. Neck: Thyroid: No thyroid mass, thyromegaly or thyroid tenderness. Vascular: No carotid bruit. Trachea: Trachea and phonation normal. Cardiovascular: Rate and Rhythm: Normal rate and regular rhythm. Pulses: Normal pulses. Heart sounds: Normal heart sounds. Pulmonary: Effort: Pulmonary effort is normal. Breath sounds: Normal breath sounds. Musculoskeletal: General: Normal range of motion. Right shoulder: Normal. Left shoulder: Normal. Cervical back: Normal, full passive range of motion without pain and neck supple. No tenderness. No spinous process tenderness. Thoracic back: Normal. Lumbar back: Normal. Right knee: Normal. Left knee: Normal. Right lower leg: No edema. Left lower leg: No edema. Lymphadenopathy: Cervical: No cervical adenopathy. Skin: General: Skin is warm and dry. Neurological: General: No focal deficit present. Mental Status: She is alert and oriented to person, place, and time. Mental status is at baseline. Sensory: Sensation is intact. Motor: Motor function is intact. Psychiatric: Attention and Perception: Attention and perception normal. Mood and Affect: Mood normal. Speech: Speech normal. Behavior: Behavior normal. Thought Content: Thought content normal. Judgment: Judgment normal. Data Reviewed: No new labs ASSESSMENT/PLAN: 1. Primary hypertension - ICD9: 401.9, ICD10: I10 (primary diagnosis) - Controlled - Continue current medications - Recommend home blood pressure monitoring, to bring results to next visit - Encouraged sodium restriction, DASH or Mediterranean diet - Recommend regular aerobic exercise 2. Primary osteoarthritis of both hips - ICD9: 715.15, ICD10: M16.0 - OXYCODONE-ACETAMINOPHEN 5 MG-325 MG TABLET 3. Overweight with body mass index (BMI) of 29 to 29.9 in adult - ICD9: 278.02, V85.25, ICD10: E66.3, Z68.29 4. Insulin-treated type 2 diabetes mellitus (HCC) - ICD9: 250.00, V58.67, ICD10: E11.9, Z79.4 5. Recurrent falls - ICD9: V15.88, ICD10: R29.6 6. 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 Lumbar spondylosis - ICD9: 721.3, ICD10: M47.816 - MRI LUMBAR SPINE WO IVCON - [facility] 8. Spinal stenosis of lumbar region without neurogenic claudication - ICD9: 724.02, ICD10: M48.061 - MRI LUMBAR SPINE WO IVCON Jonn Krishnamurthy DO Return if symptoms worsen or fail to improve. Attestation: Scribe Attestation: The patient is seen and examined by Dr. Krishnamurthy and the following reflects his/her service. Scribed by Natalie Zhong April 19, 2024 1:05 PMProvider Attestation: I, Jonn Krishnamurthy DO personally performed the services described in this documentation. All medical record entries made by the scribe were at my direction and in my presence. I have reviewed the chart and discharge instructions (if applicable) and agree that the record reflects my personal performance and is accurate and complete. Electronically Signed: Jonn Krishnamurthy DO, April 19, 2024 11:40 AM documented in this encounter [facility] 02-22-2024 Telephone encounter Note Estefany patients daughter in law called in and left a voicemail saying patient lost her balance yesterday and fell in the kitchen and fell and landed on her rear end. Said she was moving around okay. But concerned now because this was yesterday an now she is hurting bad and cries when she gets up and the pain wont stop. Patient did not want to go to the hospital. Been giving her advil dual action and tylenol extra strength. States she has a history of a hip fracture and a pin placed and that side hurts. Wanted an appointment. Said could call Estefany back at [phone] or Sandeep at [phone]. Tried calling patients daughter in law back, no answer, left message to call Called and spoke with Sandeep and advised no appointments available and that Pluma should go to the hospital to be evaluated. Asked if would go and he said yes and would go to [facility]. [facility] 02-22-2024 Miscellaneous Notes Estefany patients daughter in law called in and left a voicemail saying patient lost her balance yesterday and fell in the kitchen and fell and landed on her rear end. Said she was moving around okay. But concerned now because this was yesterday an now she is hurting bad and cries when she gets up and the pain wont stop. Patient did not want to go to the hospital. Been giving her advil dual action and tylenol extra strength. States she has a history of a hip fracture and a pin placed and that side hurts. Wanted an appointment. Said could call Estefany back at [phone] or Sandeep at [phone]. Tried calling patients daughter in law back, no answer, left message to call Called and spoke with Sandeep and advised no appointments available and that Pluma should go to the hospital to be evaluated. Asked if would go and he said yes and would go to [facility]. documented in this encounter [facility] 02-05-2024 Telephone encounter Note Pharmacy faxed requesting the following refill Refill(s) Requested: Requested Prescriptions Pending Prescriptions Disp Refills LANTUS SOLOSTAR U-100 INSULIN 100 unit/mL (3 mL) [Pharmacy Med Name: LANTUS SOLOSTAR 100 UNIT/ML] 4 Sig: INJECT 18 UNITS SUBCUTANEOUSLY DAILY AT BEDTIME. insulin lispro (HUMALOG KWIKPEN INSULIN) 100 unit/mL [Pharmacy Med Name: HUMALOG 100 UNIT/ML KWIKPEN] 2 Sig: INJECT 14 UNITS SUBCUTANEOUSLY THREE TIMES DAILY BEFORE MEALS. ALLERGIES Allergen Reactions Meperidine Unknown, Vomiting (home) [phone] (work) Last Office Visit Date: 11/24/2023 Last Distance Health Visit: Visit date not found Future Appointment: 02/16/2024 The patients preferred pharmacy has been captured for this encounter? yes Request is for script(s) to be escript to pharmacy. Lily Cook LPN [facility] 02-05-2024 Miscellaneous Notes Pharmacy faxed requesting the following refill Refill(s) Requested: Requested Prescriptions Pending Prescriptions Disp Refills LANTUS SOLOSTAR U-100 INSULIN 100 unit/mL (3 mL) [Pharmacy Med Name: LANTUS SOLOSTAR 100 UNIT/ML] 4 Sig: INJECT 18 UNITS SUBCUTANEOUSLY DAILY AT BEDTIME. insulin lispro (HUMALOG KWIKPEN INSULIN) 100 unit/mL [Pharmacy Med Name: HUMALOG 100 UNIT/ML KWIKPEN] 2 Sig: INJECT 14 UNITS SUBCUTANEOUSLY THREE TIMES DAILY BEFORE MEALS. ALLERGIES Allergen Reactions Meperidine Unknown, Vomiting (home) [phone] (work) Last Office Visit Date: 11/24/2023 Last Distance Health Visit: Visit date not found Future Appointment: 02/16/2024 The patients preferred pharmacy has been captured for this encounter? yes Request is for script(s) to be escript to pharmacy. Lily Cook LPN documented in this encounter [facility] 11-24-2023 Miscellaneous Notes Consult to orthopaedics, chronic pain of right ankle Confirm [id number] Kelly Biggs documented in this encounter [facility] 11-24-2023 History of Present illness Narrative Images from the original note were not included. [facility] DO Wenceslao [address] [place] [address] Date of Evaluation: 11/24/2023 Patient Name: Margarita Betancourt : 1940 Chief Complaint: Patient presents with: Ankle Pain: right Hip Pain: Right Diabetes Hyperlipidemia Nausea: Requesting medication for nausea. Burping and nausea after eating trouble sleeping Nursing Intake: There are no exam notes on file for this visit. Subjective Ms. Betancourt is a 83 year old female who presents with the following complaint(s): The history is provided by the patient (daughter in law). No paraprofessional interpreter was used. Ankle Pain This is a chronic problem. The problem occurs daily. The problem has been unchanged. Associated symptoms include vomiting. Pertinent negatives include no chest pain, coughing, fatigue, headaches, numbness or weakness. Hip Pain This is a chronic problem. The problem occurs daily. The problem has been unchanged. Pertinent negatives include no numbness. Diabetes She presents for her follow-up diabetic visit. She has type 2 diabetes mellitus. Pertinent negatives for hypoglycemia include no dizziness, headaches or nervousness/anxiousness. Pertinent negatives for diabetes include no chest pain, no fatigue and no weakness. Vomiting This is a recurrent problem. Episode frequency: every few days. Emesis appearance: appears like coffee gorunds There has been no fever. Pertinent negatives include no cough and no headaches. Review of Systems Constitutional: Negative for fatigue and unexpected weight change. HENT: Negative for nosebleeds. Eyes: Negative for redness and visual disturbance. Respiratory: Negative for apnea, cough and shortness of breath. Cardiovascular: Negative for chest pain, palpitations and leg swelling. Gastrointestinal: Positive for vomiting. Genitourinary: Negative for hematuria. Neurological: Negative for dizziness, weakness, light-headedness, numbness and headaches. Hematological: Does not bruise/bleed easily. Psychiatric/Behavioral: The patient is not nervous/anxious. 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 2 diabetes mellitus Dyspnea Edema of upper extremity Fatigue Female stress incontinence Generalized anxiety disorder GERD (gastroesophageal reflux disease) Hip joint painful on movement Insomnia Insulin-treated type 2 diabetes mellitus (HCC) Mixed hyperlipidemia Muscle weakness (generalized) Obesity (BMI 30-39.9) Poor short term memory Premature beats Superficial thrombophlebitis Type 2 diabetes mellitus without complication (HCC) Urinary tract infectious disease PAST SURGICAL HISTORY Procedure Laterality Date BLADDER SURGERY HX LIGATE FALLOPIAN TUBE REPAIR EPIGASTRIC HERNIA,REDUC REVISE MEDIAN N/CARPAL TUNNEL SURG TOTAL ABDOM HYSTERECTOMY 09/04/1983 FAMILY HISTORY Problem Relation Age of Onset Colon Cancer Brother other (myocardial infarction) Brother Social History Tobacco Use Smoking status: Never Smokeless tobacco: Never Vaping Use Vaping Use: Never used Substance Use Topics Alcohol use: Never Drug use: Never Current Outpatient Medications Medication Sig phenazopyridine HCl (AZO ORAL) Take by mouth. Gummies OTC Magnesium 30 mg tablet Take 30 mg by mouth two times a day. POTASSIUM-99 ORAL Take by mouth. ELIQUIS 5 mg tab(s) Take 1 tablet by mouth every afternoon. docusate sodium (COLACE) 100 mg capsule Take 1 capsule by mouth once daily as needed for constipation. gabapentin (NEURONTIN) 300 mg capsule Take 1 capsule by mouth twice daily for 90 days. insulin lispro (HUMALOG KWIKPEN INSULIN) 100 unit/mL INJECT 14 UNITS SUBCUTANEOUSLY THREE TIMES DAILY BEFORE MEALS. (Patient taking differently: Inject 18 Units subcutaneously three times a day. INJECT 14 UNITS SUBCUTANEOUSLY THREE TIMES DAILY BEFORE MEALS.) insulin glargine (LANTUS SOLOSTAR U-100 INSULIN) 100 unit/mL (3 mL) Inject 18 Units subcutaneously daily at bedtime. lisinopril (ZESTRIL) 20 mg tablet Take 1 tablet by mouth once daily. metoprolol succinate ER (TOPROL XL) 50 mg 24 hr tablet TAKE 1 TABLET BY MOUTH EVERY DAY omeprazole (PRILOSEC) 40 mg capsule TAKE 1 CAPSULE BY MOUTH TWICE A DAY ipratropium-albuterol (DUONEB) 0.5 mg-3 mg(2.5 mg base)/3 mL nebu USE 1 VIAL IN NEBULIZER 4 TIMES DAILY MEDICATION, NON-DATABASE Co q 10 b complex Calcium & vit d MV with Ixx-Njdviqyy-Uybgyz (CENTRUM SILVER) 0.4-300-250 mg-mcg-mcg tab Centrum Silver Tablet Centrum Silver Tablet Active 1 TAB DAILY December 23, 2015 3:40pm 12-23-2015 [facility] [facility] ([id number]) PRODIGY LANCETS MISC four times daily. blood sugar diagnostic (PRODIGY NO CODING) test strip four times daily. ondansetron orally disintegrating (ZOFRAN ODT) 4 mg disintegrating tablet Take 1 tablet by mouth every 8 hours as needed for nausea/vomiting. hydrOXYzine pamoate (VISTARIL) 25 mg capsule Take 1-2 capsules by mouth daily at bedtime. oxyCODONE-acetaminophen (PERCOCET) 5-325 mg tablet Take 1 tablet by mouth once daily as needed for pain for up to 15 days. QUEtiapine (SEROQUEL) 25 mg tablet TAKE 1/2 TABLET AT BEDTIME SCHEDULED, AND TAKE 1/2 TABLET DAILY NEEDED (Patient not taking: Reported on 01/13/2023) magnesium hydroxide (MOM) 400 mg/5 mL suspension Take by mouth as needed. (Patient not taking: Reported on 01/13/2023) citalopram (CELEXA) 40 mg tablet Take 40 mg by mouth q 24 HR. (Patient not taking: Reported on 01/13/2023) No current facility-administered medications for this visit. I have confirmed and edited as necessary the past medical, family and social histories, HPI, and ROS obtained by others. Objective Pulse 61 Temp 98 Ht 5' 2 (1.58m) Wt 179 lb (81.2kg) SpO2 96% BMI 32.73 kg/(m^2). Physical Exam Vitals and nursing note reviewed. Constitutional: General: She is not in acute distress. Appearance: Normal appearance. She is well-developed. She is not ill-appearing. HENT: Head: Normocephalic. Right Ear: Tympanic membrane, ear canal and external ear normal. There is no impacted cerumen. Left Ear: Tympanic membrane, ear canal and external ear normal. There is no impacted cerumen. Nose: Nose normal. Mouth/Throat: Mouth: Mucous membranes are moist. Pharynx: Oropharynx is clear. Uvula midline. No oropharyngeal exudate or posterior oropharyngeal erythema. Eyes: General: Lids are normal. Vision grossly intact. Gaze aligned appropriately. No scleral icterus. Right eye: No discharge. Left eye: No discharge. Extraocular Movements: Extraocular movements intact. Conjunctiva/sclera: Conjunctivae normal. Pupils: Pupils are equal, round, and reactive to light. Neck: Thyroid: No thyroid mass, thyromegaly or thyroid tenderness. Vascular: No carotid bruit. Trachea: Trachea and phonation normal. Cardiovascular: Rate and Rhythm: Normal rate and regular rhythm. Pulses: Normal pulses. Heart sounds: Normal heart sounds. Pulmonary: Effort: Pulmonary effort is normal. Breath sounds: Normal breath sounds. Abdominal: General: Abdomen is flat. Bowel sounds are normal. Palpations: Abdomen is soft. Musculoskeletal: General: Normal range of motion. Right shoulder: Normal. Left shoulder: Normal. Cervical back: Normal, full passive range of motion without pain and neck supple. No tenderness. No spinous process tenderness. Thoracic back: Normal. Lumbar back: Normal. Right knee: Normal. Left knee: Normal. Right lower leg: No edema. Left lower leg: No edema. Lymphadenopathy: Cervical: No cervical adenopathy. Skin: General: Skin is warm and dry. Neurological: General: No focal deficit present. Mental Status: She is alert and oriented to person, place, and time. Mental status is at baseline. Sensory: Sensation is intact. Motor: Motor function is intact. Psychiatric: Attention and Perception: Attention and perception normal. Mood and Affect: Mood normal. Speech: Speech normal. Behavior: Behavior normal. Thought Content: Thought content normal. Judgment: Judgment normal. Data Reviewed: No new labs ASSESSMENT/PLAN: 1. Insulin-treated type 2 diabetes mellitus (HCC) - ICD9: 250.00, V58.67, ICD10: E11.9, Z79.4 (primary diagnosis) - Uncontrolled - Difficulty controlling with patient age living situation etc. - Continue current medications at this time. - HEMOGLOBIN A1C (POC) 2. Nausea and vomiting, unspecified vomiting type - ICD9: 787.01, ICD10: R11.2 - Start Zofran - ONDANSETRON 4 MG DISINTEGRATING TABLET 3. Primary hypertension - ICD9: 401.9, ICD10: I10 - Continue current medications - Recommend home blood pressure monitoring, to bring results to next visit - Encouraged sodium restriction, DASH or Mediterranean diet - Recommend regular aerobic exercise 4. Diabetic gastroparesis (HCC) (HCC) - ICD9: 250.60, 536.3, ICD10: E11.43, K31.84 5. Chronic insomnia - ICD9: 780.52, ICD10: F51.04 - HYDROXYZINE PAMOATE 25 MG CAPSULE 6. Class 1 obesity with body mass index (BMI) of 32.0 to 32.9 in adult, unspecified obesity type, unspecified whether serious comorbidity present - ICD9: 278.00, V85.32, ICD10: E66.9, Z68.32 7. Chronic pain of right ankle - ICD9: 719.47, 338.29, ICD10: M25.571, G89.29 - Refer to Ortho. - CONSULT TO ORTHOPAEDICS 8. Arthritis of both hips - ICD9: 716.95, ICD10: M16.0 9. Primary osteoarthritis of both hips - ICD9: 715.15, ICD10: M16.0 - Continue Pain medication as needed - OXYCODONE-ACETAMINOPHEN 5 MG-325 MG TABLET 10. Lumbar spondylosis - ICD9: 721.3, ICD10: M47.816 - OXYCODONE-ACETAMINOPHEN 5 MG-325 MG TABLET 11. Primary osteoarthritis of right knee - ICD9: 715.16, ICD10: M17.11 - OXYCODONE-ACETAMINOPHEN 5 MG-325 MG TABLET PDMP website checked and validated. All prescriptions have been APPROPRIATELY filled. No suspicious activity was identified. Return if symptoms worsen or fail to improve. Jonn Krishnamurthy DO Attestation: Scribe Attestation: The patient is seen and examined by Dr. Krishnamurthy and the following reflects his/her service. Scribed by Judy Grant MA November 24, 2023 11:36 AMProvider Attestation: I, Jonn Krishnamurthy DO personally performed the services described in this documentation. All medical record entries made by the scribe were at my direction and in my presence. I have reviewed the chart and discharge instructions (if applicable) and agree that the record reflects my personal performance and is accurate and complete. Electronically Signed: Jonn Krishnamurthy DO, November 24, 2023 11:39 AM documented in this encounter [facility] 07-17-2023 Miscellaneous Notes Faxed orders to [facility] 07/17/2023 Kelly Biggs ----- Message from Anyi Mancuso sent at 07/17/2023 1:56 PM EST ----- [address] [place] [address]/[place]/Jonn Krishnamurthy DO/Patient requests a call back Subject Line Format: Medicine / Jonn Krishnamurthy DO / [Issue] Select Department Name For Pool Routing Assistance: [facility] [place] => [facility] [place] [facility] MARCEL SPICER [[id number]] = Patient: Margarita Betancourt Date of : 1940 Primary Care Provider: Jonn Krishnamurthy DO The reason I am contacting the office is: Call Back - Patient's son Sandeep is requesting a call back from Dr. Krishnamurthy's office - patient would like to have their blood work requests faxed over to [phone] [employer]. Please get in touch with the patient, they've tried to get in touch with the office before. Thank you! Person calling if other than patient: Y - son Sandeep Rosenberg contact number: [phone] Thank you, Anyi Mancuso July 17, 2023 1:59 PM documented in this encounter [facility] 07-05-2023 History of Present illness Narrative Images from the original note were not included. [facility] [place] Krishnamurthy DO [address] [place] [address] Date of Evaluation: 07/05/2023 Patient Name: Margarita Betancourt : 1940 Chief Complaint: Patient presents with: Low Back Pain Mental Status Changes Urinary Frequency: X 5 days Bleeding/Bruising: Rectal bleeding in pull up Nursing Intake: There are no exam notes on file for this visit. Subjective Ms. Betancourt is a 83 year old female who presents with the following complaint(s): The history is provided by the patient and a relative. No paraprofessional interpreter was used. UTI This is a new problem. The current episode started more than 2 days ago. The problem has not changed since onset.There has been no fever. Associated symptoms include frequency. Pertinent negatives include no hematuria. Hypercholesterolemia This is a chronic problem. The current episode started more than 1 year ago. Pertinent negatives include no chest pain or shortness of breath. Musculoskeletal Problem This is a chronic problem. The problem occurs daily. The problem has been unchanged. Associated symptoms include joint swelling. Pertinent negatives include no chest pain, coughing, fatigue, headaches, numbness or weakness. Associated symptoms comments: Multiple Joint Pain. . Diabetes She presents for her follow-up diabetic visit. She has type 2 diabetes mellitus. Pertinent negatives for hypoglycemia include no dizziness, headaches or nervousness/anxiousness. Pertinent negatives for diabetes include no chest pain, no fatigue and no weakness. Her overall blood glucose range is 140-180 mg/dl. Review of Systems Constitutional: Negative for fatigue and unexpected weight change. HENT: Negative for nosebleeds. Eyes: Negative for redness and visual disturbance. Respiratory: Negative for apnea, cough and shortness of breath. Cardiovascular: Negative for chest pain, palpitations and leg swelling. Genitourinary: Positive for dysuria and frequency. Negative for hematuria. Musculoskeletal: Positive for joint swelling. Neurological: Negative for dizziness, weakness, light-headedness, numbness and headaches. Hematological: Does not bruise/bleed easily. Psychiatric/Behavioral: The patient is not nervous/anxious. 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 2 diabetes mellitus Dyspnea Edema of upper extremity Fatigue Female stress incontinence Generalized anxiety disorder GERD (gastroesophageal reflux disease) Hip joint painful on movement Insomnia Insulin-treated type 2 diabetes mellitus (HCC) Mixed hyperlipidemia Muscle weakness (generalized) Obesity (BMI 30-39.9) Poor short term memory Premature beats Superficial thrombophlebitis Type 2 diabetes mellitus without complication (HCC) Urinary tract infectious disease PAST SURGICAL HISTORY Procedure Laterality Date BLADDER SURGERY HX LIGATE FALLOPIAN TUBE REPAIR EPIGASTRIC HERNIA,REDUC REVISE MEDIAN N/CARPAL TUNNEL SURG TOTAL ABDOM HYSTERECTOMY 09/04/1983 FAMILY HISTORY Problem Relation Age of Onset Colon Cancer Brother other (myocardial infarction) Brother Social History Tobacco Use Smoking status: Never Smokeless tobacco: Never Vaping Use Vaping Use: Never used Substance Use Topics Alcohol use: Never Drug use: Never Current Outpatient Medications Medication Sig Magnesium 30 mg tablet Take 30 mg by mouth two times a day. POTASSIUM-99 ORAL Take by mouth. ELIQUIS 5 mg tab(s) Take 1 tablet by mouth every afternoon. docusate sodium (COLACE) 100 mg capsule Take 1 capsule by mouth once daily as needed for constipation. gabapentin (NEURONTIN) 300 mg capsule Take 1 capsule by mouth twice daily for 90 days. insulin lispro (HUMALOG KWIKPEN INSULIN) 100 unit/mL INJECT 14 UNITS SUBCUTANEOUSLY THREE TIMES DAILY BEFORE MEALS. insulin glargine (LANTUS SOLOSTAR U-100 INSULIN) 100 unit/mL (3 mL) Inject 18 Units subcutaneously daily at bedtime. lisinopril (ZESTRIL) 20 mg tablet Take 1 tablet by mouth once daily. metoprolol succinate ER (TOPROL XL) 50 mg 24 hr tablet TAKE 1 TABLET BY MOUTH EVERY DAY omeprazole (PRILOSEC) 40 mg capsule TAKE 1 CAPSULE BY MOUTH TWICE A DAY ipratropium-albuterol (DUONEB) 0.5 mg-3 mg(2.5 mg base)/3 mL nebu USE 1 VIAL IN NEBULIZER 4 TIMES DAILY MEDICATION, NON-DATABASE Co q 10 b complex Calcium & vit d MV with Dud-Xphttsti-Hgodur (CENTRUM SILVER) 0.4-300-250 mg-mcg-mcg tab Centrum Silver Tablet Centrum Silver Tablet Active 1 TAB DAILY December 23, 2015 3:40pm 12-23-2015 [facility] ([id number]) PRODIGY LANCETS MISC four times daily. blood sugar diagnostic (PRODIGY NO CODING) test strip four times daily. hydrocortisone (ANUSOL-HC) 2.5 % rectal cream by RECTAL route two times a day for 7 days. oxyCODONE-acetaminophen (PERCOCET) 5-325 mg tablet Take 1 tablet by mouth once daily as needed for pain. sulfamethoxazole-trimethoprim (BACTRIM DS) 800-160 mg per tablet Take 1 tablet by mouth two times a day for 3 days. (Patient not taking: Reported on 07/05/2023) QUEtiapine (SEROQUEL) 25 mg tablet TAKE 1/2 TABLET AT BEDTIME SCHEDULED, AND TAKE 1/2 TABLET DAILY NEEDED (Patient not taking: Reported on 01/13/2023) magnesium hydroxide (MOM) 400 mg/5 mL suspension Take by mouth as needed. (Patient not taking: Reported on 01/13/2023) citalopram (CELEXA) 40 mg tablet Take 40 mg by mouth q 24 HR. (Patient not taking: Reported on 01/13/2023) No current facility-administered medications for this visit. I have confirmed and edited as necessary the past medical, family and social histories, HPI, and ROS obtained by others. Objective BP 130/90 Pulse 78 Temp 98.6 Ht 5' 2 (1.58m) Wt 166 lb (75.3kg) SpO2 98% BMI 30.35 kg/(m^2). Physical Exam Vitals and nursing note reviewed. Constitutional: General: She is not in acute distress. Appearance: Normal appearance. She is well-developed. She is not ill-appearing. HENT: Head: Normocephalic. Right Ear: Tympanic membrane, ear canal and external ear normal. There is no impacted cerumen. Left Ear: Tympanic membrane, ear canal and external ear normal. There is no impacted cerumen. Nose: Nose normal. Mouth/Throat: Mouth: Mucous membranes are moist. Pharynx: Oropharynx is clear. Uvula midline. No oropharyngeal exudate or posterior oropharyngeal erythema. Eyes: General: Lids are normal. Vision grossly intact. Gaze aligned appropriately. No scleral icterus. Right eye: No discharge. Left eye: No discharge. Extraocular Movements: Extraocular movements intact. Conjunctiva/sclera: Conjunctivae normal. Pupils: Pupils are equal, round, and reactive to light. Neck: Thyroid: No thyroid mass, thyromegaly or thyroid tenderness. Vascular: No carotid bruit. Trachea: Trachea and phonation normal. Cardiovascular: Rate and Rhythm: Regular rhythm. Pulses: Normal pulses. Heart sounds: Normal heart sounds. Pulmonary: Effort: Pulmonary effort is normal. Breath sounds: Normal breath sounds. Abdominal: General: Abdomen is flat. Bowel sounds are normal. Palpations: Abdomen is soft. Musculoskeletal: General: Normal range of motion. Right shoulder: Normal. Left shoulder: Normal. Cervical back: Normal, full passive range of motion without pain and neck supple. No tenderness. No spinous process tenderness. Thoracic back: Normal. Lumbar back: Normal. Right knee: Normal. Left knee: Normal. Right lower leg: No edema. Left lower leg: No edema. Lymphadenopathy: Cervical: No cervical adenopathy. Skin: General: Skin is warm and dry. Neurological: General: No focal deficit present. Mental Status: She is alert and oriented to person, place, and time. Mental status is at baseline. Sensory: Sensation is intact. Motor: Motor function is intact. Psychiatric: Attention and Perception: Attention and perception normal. Mood and Affect: Mood normal. Speech: Speech normal. Behavior: Behavior normal. Thought Content: Thought content normal. Judgment: Judgment normal. Data Reviewed: No new labs ASSESSMENT/PLAN: 1. Acute UTI - ICD9: 599.0, ICD10: N39.0 (primary diagnosis) - PO antibiotic called into the pharmacy yesterday 2. Urinary frequency - ICD9: 788.41, ICD10: R35.0 - UA DIP, URINE (POC) 3. Insulin-treated type 2 diabetes mellitus (HCC) - ICD9: 250.00, V58.67, ICD10: E11.9, Z79.4 - Control undetermined, due for labs - HGB A1C 4. Hyperlipidemia, mixed - ICD9: 272.2, ICD10: E78.2 - Control undetermined, due for labs - CBC + DIFF - COMP METABOLIC PANEL - LIPID PANEL BASIC - URINALYSIS, WITH MICROSCOPIC 5. Screening for thyroid disorder - ICD9: V77.0, ICD10: Z13.29 - TSH BLD 6. Obesity, Class I, BMI 30-34.9 - ICD9: 278.00, ICD10: E66.9 7. Other hemorrhoids - ICD9: 455.6, ICD10: K64.8 - Start Topical Cream - HYDROCORTISONE 2.5 % TOPICAL CREAM WITH PERINEAL APPLICATOR 8. Rectal bleeding - ICD9: 569.3, ICD10: K62.5 - Family does not want to purse with further testing at this time. 9. Primary osteoarthritis of both hips - ICD9: 715.15, ICD10: M16.0 - Continue current medication as needed - OXYCODONE-ACETAMINOPHEN 5 MG-325 MG TABLET 10. Lumbar spondylosis - ICD9: 721.3, ICD10: M47.816 - OXYCODONE-ACETAMINOPHEN 5 MG-325 MG TABLET 11. Primary osteoarthritis of right knee - ICD9: 715.16, ICD10: M17.11 - OXYCODONE-ACETAMINOPHEN 5 MG-325 MG TABLET PDMP website checked and validated. All prescriptions have been APPROPRIATELY filled. No suspicious activity was identified. Jonn Krishnamurthy DO Return if symptoms worsen or fail to improve. Attestation: Scribe Statement: Darci Grant am scribing for, and in the presence of, Jonn Krishnamurthy DO July 05, 2023 9:41 AM. Physician Statement: I, Jonn Krishnamurthy DO, personally performed the services described in the documentation, as scribed by Judy Grant in my presence, and it is both accurate and complete July 05, 2023 9:45 AM. documented in this encounter [facility] 07-04-2023 Miscellaneous Notes Advised. Will pickup driver script. Antibiotic sent documented in this encounter [facility] 07-03-2023 Miscellaneous Notes Reason For Call: [facility] unable to reach PCP office for the family. UTI like symptoms Urinary frequency and burning upon urination Outcome: Disposition - Advised patient to be seen within 4 hours in office, express care, urgent care of ED. Uxyttjvv-zh-oib Estefany verified understanding of disposition and wanted conferenced to [facility]. She plans to take patient to an ED if no appts today. Conferenced Estefany Doss from [facility] for an appt within 4 hours Reason for Disposition Side (flank) or lower back pain present Advised patient be seen within 4 hours [1] Pain or burning with passing urine (urination) AND [2] female Additional Information Negative: Shock suspected (e.g., cold/pale/clammy skin, too weak to stand, low BP, rapid pulse) Has not taken BP today Answer Assessment - Initial Assessment Questions 1. SEVERITY: Triage mostly done with daughter in law Estefany who cares for patient who has dementia. Unsure of severity of urination pain due to patient's dementia. Burning upon urination and increased urinary incontinence 2. FREQUENCY: Urinary frequency present today 3. PATTERN: Increased incontinence of urine 4. ONSET: Yesterday for onset or urinary symptoms. Diarrhea yesterday 5x. No diarrhea today 5. FEVER: No 6. PAST UTI: Yes 7. CAUSE: DIL thinks pt has UTI due to urinary symptoms and increased confusion. Pt has dementia and confused more than usual. Patient is diabetic. 8. OTHER SYMPTOMS: Back pain on both sides. Pt asks to lay down and complains of belly pain. Pt is drinking fluids per Estefany 9. : No. Post menopausal No new medication taken over last one month. Protocols used: Urinary [id number], Urination Pain - [id number] documented in this encounter [facility] 03-27-2023 Miscellaneous Notes Made Pt apt. Kelly Biggs ----- Message from Ramiro Borja sent at 03/27/2023 12:12 PM EDT ----- Regarding: Medicine / [place] / UTI Triaging Subject Line Format: Medicine / [Provider Name] / [Issue] Patient has been identified by name and Date of (Y/N): Y Patient: Margarita Betancourt Date of : 1940 Provider for this encounter: Jonn Krishnamurthy DO Reason for the call/escalation: Patient is experiencing a possible UTI. Please reach out for triaging. Was Patient Referred to 1/Seek Emergency Treatment (Y/N): N Did Patient Agree (Y/N): N/A Was An Attempt Made To Transfer The Patient To The Office (Y/N): Y Were You Able To Reach Someone At The Office (Y/N): N If Yes - Patient Was Transferred To (Caregivers Name): N/A If No - Which [facility] Leadership Finisher Map And Chart Did You Speak With Regarding This Patient: N/A Was an appointment scheduled (Y/N): N Reason patient was requesting visit (RFV/signs and symptoms/diagnosis) : Possible UTI Person calling if other than patient: Estefany, Daughter in Law Return call to if other than patient: Estefany, Daughter in Law Best contact number: [phone] Thank you, Ramiro Borja March 27, 2023 12:12 PM documented in this encounter [facility] 01-11-2023 Miscellaneous Notes Pt unable to get pain meds through the [facility] pain management due to pt telling the [employer]IV[employer] PRO[employer] ASSOCIATE she didn't take pain meds. Pt has dementia and the family tried to explain this to the [employer]IV[employer] PRO[employer] ASSOCIATE but she said no pain meds will be given. Pt's daughter connie Allison asked for different numbers to find a pain management Dr. I gave her a number from a Dr in [facility] [place] ----- Message from Sonia Welch sent at 01/11/2023 3:32 PM EDT ----- Regarding: Medicine awais shields Order and medication Subject Line Format: Medicine / [Provider Name] / [Issue] Patient has been identified by name and Date of (Y/N): y Patient: Margarita Betancourt Date of : 1940 Provider for this encounter: Jonn Krishnamurthy DO Reason for the call/escalation: Patient's son Francisco called to talk to the office about the order for pain management she was supposed to get and to see if she could get a med refill. He, or his fiancee Estefany, would like a call back to discuss this. Francisco said to call Estefany first then call Francisco if she doesn't answer Was Patient Referred to 911/Seek Emergency Treatment (Y/N): n Did Patient Agree (Y/N): n/a Was An Attempt Made To Transfer The Patient To The Office (Y/N): y Were You Able To Reach Someone At The Office (Y/N): n If Yes - Patient Was Transferred To (Caregivers Name): n/a If No - Which [facility] Leadership Finisher Map And Chart Did You Speak With Regarding This Patient: n/a Was an appointment scheduled (Y/N): n Reason patient was requesting visit (RFV/signs and symptoms/diagnosis) : n/a Person calling if other than patient: self Return call to if other than patient: self Best contact number: Estefany: [phone]; Francisco: [phone] Thank you, Sonia Welch January 11, 2023 3:32 PM documented in this encounter [facility] 12-09-2022 Miscellaneous Notes Pharmacy faxed requesting the following refill Refill(s) Requested: Requested Prescriptions Pending Prescriptions Disp Refills metoprolol succinate ER (TOPROL XL) 50 mg 24 hr tablet [Pharmacy Med Name: METOPROLOL SUCC ER 50 MG TAB] 30 tablet 0 Sig: TAKE 1 TABLET BY MOUTH EVERY DAY omeprazole (PRILOSEC) 40 mg capsule [Pharmacy Med Name: OMEPRAZOLE DR 40 MG CAPSULE] 60 capsule 0 Sig: TAKE 1 CAPSULE BY MOUTH TWICE A DAY ALLERGIES Allergen Reactions Meperidine Unknown, Vomiting (home) [phone] (work) Last Office Visit Date: 11/09/2022 Last [facility] Visit: 02/21/2022 Future Appointment: Visit date not found The patients preferred pharmacy has been captured for this encounter? yes Request is for script(s) to be escript to pharmacy. Jaz Dawkins LPN documented in this encounter [facility] 11-18-2022 Miscellaneous Notes No Show Documentation Margarita Betancourt no showed for an appointment on 11/18/22 with Edna Shaw APRN.PHARMACIST ASSISTANT at 9:45. She was scheduled for 2 mo follow up. I called and LVM with the patient regarding her missed appointment. Margarita stated the reason that she missed her appointment was because . Resources discussed/offered to patient: reschedule No show determined to be fault of patient: Yes This is the patients second no show in the last 12 months. Patient was rescheduled for . Letter mailed : Yes Is this the Third or Fourth No Show? No Umu Shaver November 18, 2022 2:48 PM documented in this encounter [facility] 11-18-2022 History of Present illness Narrative The patient did not show up for this appointment. documented in this encounter [facility] 11-17-2022 Miscellaneous Notes Pharmacy faxed requesting the following refill Refill(s) Requested: Requested Prescriptions Pending Prescriptions Disp Refills ELIQUIS 5 mg tab(s) [Pharmacy Med Name: ELIQUIS 5 MG TABLET] 30 tablet 0 Sig: TAKE 1 TABLET BY MOUTH EVERY DAY ALLERGIES Allergen Reactions Meperidine Unknown, Vomiting (home) [phone] (work) Last Office Visit Date: 11/09/2022 Last [facility] Visit: 02/21/2022 Future Appointment: Visit date not found The patients preferred pharmacy has been captured for this encounter? yes Request is for script(s) to be escript to pharmacy. Christine Toscano LPN documented in this encounter [facility] 11-14-2022 Miscellaneous Notes Pharmacy faxed requesting the following refill Refill(s) Requested: Requested Prescriptions Pending Prescriptions Disp Refills omeprazole (PRILOSEC) 40 mg capsule [Pharmacy Med Name: OMEPRAZOLE DR 40 MG CAPSULE] 60 capsule 0 Sig: TAKE 1 CAPSULE BY MOUTH TWICE A DAY ALLERGIES Allergen Reactions Meperidine Unknown, Vomiting (home) [phone] (work) Last Office Visit Date: 11/09/2022 Last [facility] Visit: 02/21/2022 Future Appointment: Visit date not found The patients preferred pharmacy has been captured for this encounter? yes Request is for script(s) to be escript to pharmacy. Christine Toscano LPN documented in this encounter [facility] 11-09-2022 History of Present illness Narrative Images from the original note were not included. [facility] Krishnamurthy DO [address] [place] [address] Date of Evaluation: 11/09/2022 Patient Name: Margarita Betancourt : 1940 Chief Complaint: Patient presents with: Back Pain: Ongoing. Was seeing pain management. Nursing Intake: There are no exam notes on file for this visit. Subjective Ms. Betancourt is a 82 year old female who presents with the following complaint(s): The history is provided by the patient and a relative (son). Back Pain This is a chronic problem. The problem occurs daily. The pain is associated with no known injury. The pain is present in the lumbar spine. Pertinent negatives include no chest pain, no numbness, no headaches and no weakness. Hypercholesterolemia This is a chronic problem. The current episode started more than 1 year ago. Pertinent negatives include no chest pain or shortness of breath. Hip Pain This is a chronic problem. The problem occurs daily. The problem has been unchanged. Pertinent negatives include no numbness. Review of Systems Constitutional: Negative for fatigue and unexpected weight change. HENT: Negative for nosebleeds. Eyes: Negative for redness and visual disturbance. Respiratory: Negative for apnea, cough and shortness of breath. Cardiovascular: Negative for chest pain, palpitations and leg swelling. Genitourinary: Negative for hematuria. Musculoskeletal: Positive for back pain. Neurological: Negative for dizziness, weakness, light-headedness, numbness and headaches. Hematological: Does not bruise/bleed easily. Psychiatric/Behavioral: The patient is not nervous/anxious. 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 2 diabetes mellitus Dyspnea Edema of upper extremity Fatigue Female stress incontinence Generalized anxiety disorder GERD (gastroesophageal reflux disease) Hip joint painful on movement Insomnia Insulin-treated type 2 diabetes mellitus (HCC) Mixed hyperlipidemia Muscle weakness (generalized) Obesity (BMI 30-39.9) Poor short term memory Premature beats Superficial thrombophlebitis Type 2 diabetes mellitus without complication (HCC) Urinary tract infectious disease PAST SURGICAL HISTORY Procedure Laterality Date BLADDER SURGERY HX LIGATE FALLOPIAN TUBE REPAIR EPIGASTRIC HERNIA,REDUC REVISE MEDIAN N/CARPAL TUNNEL SURG TOTAL ABDOM HYSTERECTOMY 09/04/1983 FAMILY HISTORY Problem Relation Age of Onset Colon Cancer Brother other (myocardial infarction) Brother Social History Tobacco Use Smoking status: Never Smokeless tobacco: Never Vaping Use Vaping Use: Never used Substance Use Topics Alcohol use: Never Drug use: Never Current Outpatient Medications Medication Sig Dispense Refill lisinopril (ZESTRIL, PRINIVIL) 20 mg tablet TAKE 1 TABLET BY MOUTH EVERY DAY 30 tablet 0 HUMALOG KWIKPEN INSULIN 100 unit/mL INJECT 18 UNITS SUBCUTANEOUSLY THREE TIMES DAILY BEFORE MEALS. 45 Each 1 ipratropium-albuterol (DUONEB) 0.5 mg-3 mg(2.5 mg base)/3 mL nebu USE 1 VIAL IN NEBULIZER 4 TIMES DAILY 120 Each 11 insulin glargine (LANTUS SOLOSTAR U-100 INSULIN) 100 unit/mL (3 mL) Inject 18 Units subcutaneously daily at bedtime. 1 Pen 5 MEDICATION, NON-DATABASE Co q 10 b complex Calcium & vit d QUEtiapine (SEROQUEL) 25 mg tablet TAKE 1/2 TABLET AT BEDTIME SCHEDULED, AND TAKE 1/2 TABLET DAILY NEEDED 90 tablet 1 MV with Riz-Uaokqjbf-Daowme (CENTRUM SILVER) 0.4-300-250 mg-mcg-mcg tab Centrum Silver Tablet Centrum Silver Tablet Active 1 TAB DAILY December 23, 2015 3:40pm 12-23-2015 [facility] ([id number]) docusate sodium (COLACE) 100 mg capsule Take by mouth. magnesium hydroxide (MOM) 400 mg/5 mL suspension Take by mouth as needed. PRODIGY LANCETS MISC four times daily. blood sugar diagnostic (PRODIGY NO CODING) test strip four times daily. gabapentin (NEURONTIN) 300 mg capsule Take 300 mg by mouth twice daily. metoprolol succinate ER (TOPROL XL) 50 mg 24 hr tablet TAKE 1 TABLET BY MOUTH EVERY DAY 30 tablet 0 omeprazole (PRILOSEC) 40 mg capsule TAKE 1 CAPSULE BY MOUTH TWICE A DAY 60 capsule 0 ELIQUIS 5 mg tab(s) TAKE 1 TABLET BY MOUTH EVERY DAY 30 tablet 0 oxyCODONE-acetaminophen (PERCOCET) 5-325 mg tablet Take 1 tablet by mouth every 6 hours as needed for pain. 12 tablet 0 citalopram (CELEXA) 40 mg tablet Take 40 mg by mouth q 24 HR. No current facility-administered medications for this visit. I have confirmed and edited as necessary the past medical, family and social histories, HPI, and ROS obtained by others. Objective BP 148/98 Pulse 64 Temp 97.6 Ht 5' 2 (1.58m) Wt 174 lb (78.9kg) SpO2 95% BMI 31.82 kg/(m^2). Physical Exam Vitals and nursing note reviewed. Constitutional: General: She is not in acute distress. Appearance: Normal appearance. She is well-developed. She is not ill-appearing. HENT: Head: Normocephalic. Right Ear: Tympanic membrane, ear canal and external ear normal. There is no impacted cerumen. Left Ear: Tympanic membrane, ear canal and external ear normal. There is no impacted cerumen. Nose: Nose normal. Mouth/Throat: Mouth: Mucous membranes are moist. Pharynx: Oropharynx is clear. Uvula midline. No oropharyngeal exudate or posterior oropharyngeal erythema. Eyes: General: Lids are normal. Vision grossly intact. Gaze aligned appropriately. No scleral icterus. Right eye: No discharge. Left eye: No discharge. Extraocular Movements: Extraocular movements intact. Conjunctiva/sclera: Conjunctivae normal. Pupils: Pupils are equal, round, and reactive to light. Neck: Thyroid: No thyroid mass, thyromegaly or thyroid tenderness. Vascular: No carotid bruit. Trachea: Trachea and phonation normal. Cardiovascular: Rate and Rhythm: Normal rate and regular rhythm. Pulses: Normal pulses. Heart sounds: Normal heart sounds. Pulmonary: Effort: Pulmonary effort is normal. Breath sounds: Normal breath sounds. Abdominal: General: Abdomen is flat. Bowel sounds are normal. Palpations: Abdomen is soft. Musculoskeletal: General: Normal range of motion. Right shoulder: Normal. Left shoulder: Normal. Cervical back: Normal, full passive range of motion without pain and neck supple. No tenderness. No spinous process tenderness. Thoracic back: Normal. Lumbar back: Normal. Right knee: Normal. Left knee: Normal. Right lower leg: No edema. Left lower leg: No edema. Lymphadenopathy: Cervical: No cervical adenopathy. Skin: General: Skin is warm and dry. Neurological: General: No focal deficit present. Mental Status: She is alert and oriented to person, place, and time. Mental status is at baseline. Sensory: Sensation is intact. Motor: Motor function is intact. Psychiatric: Attention and Perception: Attention and perception normal. Mood and Affect: Mood normal. Speech: Speech normal. Behavior: Behavior normal. Thought Content: Thought content normal. Judgment: Judgment normal. Data Reviewed: Most recent labs and imaging results. ASSESSMENT/PLAN: 1. Primary hypertension - ICD9: 401.9, ICD10: I10 (primary diagnosis) - suboptimal control - Recommended regular aerobic exercise. - Recommend home blood pressure monitoring, to bring results in on next visit - Goal of BP <130/80 2. Hyperlipidemia, mixed - ICD9: 272.2, ICD10: E78.2 3. Lumbar spondylolysis - ICD9: 738.4, ICD10: M43.06 4. Primary osteoarthritis of both hips - ICD9: 715.15, ICD10: M16.0 - Continue pain medication as needed - Refer to Pain MGT - OXYCODONE-ACETAMINOPHEN 5 MG-325 MG TABLET - CONSULT TO PAIN MGT 5. Lumbar spondylosis - ICD9: 721.3, ICD10: M47.816 - OXYCODONE-ACETAMINOPHEN 5 MG-325 MG TABLET - CONSULT TO PAIN MGT 6. Primary osteoarthritis of right knee - ICD9: 715.16, ICD10: M17.1 - OXYCODONE-ACETAMINOPHEN 5 MG-325 MG TABLET - CONSULT TO PAIN MGT PDMP website checked and validated. All prescriptions have been APPROPRIATELY filled. No suspicious activity was identified. Jonn Krishnamurthy, DO Return if symptoms worsen or fail to improve. Attestation: Scribe Statement: I Judy Grant am scribing for, and in the presence of, Jonn Krishnamurthy DO November 09, 2022 9:02 AM. Physician Statement: I, Jonn Krishnamurthy DO, personally performed the services described in the documentation, as scribed by Judy Grant in my presence, and it is both accurate and complete November 09, 2022 9:09 AM. documented in this encounter [facility] 10-21-2022 Miscellaneous Notes Thank you Called patient pharmacy they confirmed that they never received the bridge script for percocet. documented in this encounter [facility] 10-21-2022 Miscellaneous Notes Addended by: IDALMIS BENSON on: 10/21/2022 08:20 AM Modules accepted: Orders documented in this encounter [facility] 10-21-2022 History of Present illness Narrative Review of Systems Constitutional: Negative for activity change, chills, fever and unexpected weight change. Gastrointestinal: Negative for bowel retention or incontinence Genitourinary: Negative for difficulty urinating. Negative for bladder retention or incontinence Musculoskeletal: Positive for back pain and gait problem. Negative for arthralgias, joint swelling, myalgias, neck pain and neck stiffness. Neurological: Positive for numbness. Negative for weakness and headaches. Psychiatric/Behavioral: Positive for dysphoric mood and sleep disturbance. Negative for suicidal ideas. The patient is not nervous/anxious. Images from the original note were not included. [facility] Phone: Date of Evaluation: 10/21/2022 Patient Name: Margarita Betancourt : 1940 Subjective: Patient presents with: Rx Refills . HPI: Margarita Betancourt is a 82 year old female who presents for follow up evaluation of low back, hip and ankle pain. Denies LOC of bowel and bladder, no BLE weakness, no recent falls. Margarita appears to be in no apparent distress this morning. She is sitting comfortably I the chair and smiling. CT lumbar spine ordered- daughter in law states she cannot get on table for exam. 10/19/22 Daughter in law called office stating Margarita was in excruciating pain and crying. This morning the daughter in law states she did not pickup driver the Percocet prescription that was sent 10/19/22. Interval history: 09/23/22Margarita Betancourt is a 82 year old female who presents for follow up evaluation of low back, hip and ankle pain.Margarita is accompanied by her twdoyirw-bu-kbm this morning for her visit. The kxgjagkv-zd-tif states that she cries out in pain from time to time most notably in the last month as the pain has increased in severity and frequency.She indicates that the pain is across her low back into her buttock and down into her bilateral lower extremities.Denies LOC of bowel and bladder, no BLE weakness, no recent falls. Ambulates with a walker. Pain Assessment: INTAKE PAIN ASSESSMENT 09/23/2022 10/20/2022 Are you having pain associated with your visit today? Yes, Provider notified Yes, Provider notified Pain Scales Verbal (Numeric Rating or Visual Analog Scale) - Pain Level 5 7 Pain Location Back-Lower Back-Lower Description Dull;Aching Radiating;Sharp;Tingling;Dull Duration Amount of Time - 6 Duration Units Years - Frequency Intermittent Continuous Intervention/Comfort measure Reposition;Relaxation;Distraction s;Massage;Medication Medication;Reposition;Relaxation; Exercise;Heat;Pillow support;Positioning Comments - The pain is getting worse starts in low back and goes down butt and legs now. Tingling and numb sometimes. OARRS Report: PDMP website checked and validated. All prescriptions have been APPROPRIATELY filled. No suspicious activity was identified. 10/21/2022 by Edna Shaw APRN.LEAH Past Medical History: 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 2 diabetes mellitus Dyspnea Edema of upper extremity Fatigue Female stress incontinence Generalized anxiety disorder GERD (gastroesophageal reflux disease) Hip joint painful on movement Insomnia Insulin-treated type 2 diabetes mellitus (HCC) Mixed hyperlipidemia Muscle weakness (generalized) Obesity (BMI 30-39.9) Poor short term memory Premature beats Superficial thrombophlebitis Type 2 diabetes mellitus without complication (HCC) Urinary tract infectious disease Past Surgical History: PAST SURGICAL HISTORY Procedure Laterality Date BLADDER SURGERY HX LIGATE FALLOPIAN TUBE REPAIR EPIGASTRIC HERNIA,REDUC REVISE MEDIAN N/CARPAL TUNNEL SURG TOTAL ABDOM HYSTERECTOMY 09/04/1983 Family History: FAMILY HISTORY Problem Relation Age of Onset Colon Cancer Brother other (myocardial infarction) Brother Social History: Social History Tobacco Use Smoking status: Never Smokeless tobacco: Never Vaping Use Vaping Use: Never used Substance Use Topics Alcohol use: Never Drug use: Never Allergies: ALLERGIES Allergen Reactions Meperidine Unknown, Vomiting Current Medications: ELIQUIS 5 mg tab(s) TAKE 1 TABLET BY MOUTH EVERY DAY metoprolol succinate ER (TOPROL XL) 50 mg 24 hr tablet TAKE 1 TABLET BY MOUTH EVERY DAY lisinopril (ZESTRIL, PRINIVIL) 20 mg tablet TAKE 1 TABLET BY MOUTH EVERY DAY HUMALOG KWIKPEN INSULIN 100 unit/mL INJECT 18 UNITS SUBCUTANEOUSLY THREE TIMES DAILY BEFORE MEALS. oxyCODONE-acetaminophen (PERCOCET) 5-325 mg tablet Take 1/2 tablet up to twice daily for pain Bridge Rx until seen 10/21/22 for increased pain omeprazole (PRILOSEC) 40 mg capsule TAKE 1 CAPSULE BY MOUTH TWICE A DAY MEDICATION, NON-DATABASE Co q 10 b complex Calcium & vit d QUEtiapine (SEROQUEL) 25 mg tablet TAKE 1/2 TABLET AT BEDTIME SCHEDULED, AND TAKE 1/2 TABLET DAILY NEEDED MV with Ess-Idjuudpp-Quzkhc (CENTRUM SILVER) 0.4-300-250 mg-mcg-mcg tab Centrum Silver Tablet Centrum Silver Tablet Active 1 TAB DAILY December 23, 2015 3:40pm 12-23-2015 [facility] ([id number]) docusate sodium (COLACE) 100 mg capsule Take by mouth. magnesium hydroxide (MOM) 400 mg/5 mL suspension Take by mouth as needed. PRODIGY LANCETS MISC four times daily. blood sugar diagnostic (PRODIGY NO CODING) test strip four times daily. citalopram (CELEXA) 40 mg tablet Take 40 mg by mouth q 24 HR. gabapentin (NEURONTIN) 300 mg capsule Take 300 mg by mouth twice daily. ipratropium-albuterol (DUONEB) 0.5 mg-3 mg(2.5 mg base)/3 mL nebu USE 1 VIAL IN NEBULIZER 4 TIMES DAILY insulin glargine (LANTUS SOLOSTAR U-100 INSULIN) 100 unit/mL (3 mL) Inject 18 Units subcutaneously daily at bedtime. I have confirmed and edited as necessary, the PFSH and ROS obtained by others. MEDICATION NAME oxycodone STRENGTH 5 DATE LAST DOSE TAKEN 10/15/22 COMMENTS patient didnt pickup driver bridge meds This is the second time the daughter in law did not bring in the pill bottle- she states the bottle was empty again so I did not bring it She understands no further opioids will be prescribed as this is in violation of the pain agreement which she reviewed and signed. Objective: There were no vitals taken for this visit. Physical Exam Constitutional: Appearance: Normal appearance. HENT: Head: Normocephalic. Right Ear: External ear normal. Left Ear: External ear normal. Eyes: Extraocular Movements: Extraocular movements intact. Cardiovascular: Pulses: Normal pulses. Pulmonary: Effort: Pulmonary effort is normal. Musculoskeletal: Comments: BLE strength 3/5 symmetrical BLE sensation intact and symmetrical SLR negative bilaterally Patellar reflexes +2 Tenderness over L3-L5 paraspinal musculature Skin: General: Skin is warm and dry. Capillary Refill: Capillary refill takes 2 to 3 seconds. Neurological: General: No focal deficit present. Mental Status: She is alert and oriented to person, place, and time. Psychiatric: Mood and Affect: Mood normal. Behavior: Behavior normal. Imaging: MRI Spine Report No resulted procedures found. ASSESSMENT/PLAN: 1. Lumbar spondylosis - ICD9: 721.3, ICD10: M47.816 (primary diagnosis) 2. Primary osteoarthritis of both hips - ICD9: 715.15, ICD10: M16.0 3. Encounter for long-term (current) use of medications - ICD9: V58.69, ICD10: Z79.899 Patient reports they are happy with current treatment care path. For this reason I will refill the patient's opioids today for 0 days. The patient continues to see benefit and improvement in their quality of life and ability to maintain ADLs. Patient advised that the medications may cause impairment of judgement while driving or operating machinery. Patient instructed on safe storage of medications We will re-evaluate the opiate regimen in 0 days at an office visit to determine efficacy of treatment to ensure that we are using the lowest dose for maximum benefit. oarrs was checked- no medication discrepancy or aberrations noted Adequate analgesia, ADLS's maintained, no adverse effects, no aberrant behaviors noted Examined patient and confirmed kirby findings on history and examination and ROS as noted above. Some elements of my note were copied from 09/23/22 , which have been updated where appropriate and reflect my current medical decision making for today at 10/21/22. UDS last visit was reviewed and was consistent with prn use. Today makes 2 times that the Percocet bottle was not brought to the visit. Daughter in law understands that no further opioids will be prescribed. Return in November for continued pain evaluation and treatment options. Pharmacy called to confirm Percocet 10/19/22 #4 Percocet bridge prescription was not picked up. Patient verbalizes understanding of home going instructions and is in agreement with the discharge plan. Patient questions were answered to their satisfaction. Edna Shaw APRN.PHARMACIST ASSISTANT Return for keep next OV in November. This note was partially generated using [employer] voice recognition system. documented in this encounter [facility] 10-20-2022 Miscellaneous Notes Patient was to return for appointment around 04/29/22. Please call to schedule appointment. Thanks. documented in this encounter [facility] 10-19-2022 Miscellaneous Notes Patient scheduled for 10/21/22 in [place] Please schedule patient BRETT for evaluation of pain increase. Bridge Rx of oxycodone sent to pharmacy. Edna Shaw APRN.PHARMACIST ASSISTANT Patient daughter called stating that her mother needs refills for Oxycodone early because crying pain. documented in this encounter [facility] 10-18-2022 Miscellaneous Notes ----- Message from Lorna Lopez sent at 10/18/2022 1:42 PM EST ----- Regarding: Spine/Radha Rodriges)/Medical Questions Subject Line Format: Medicine / [Provider Name] / [Issue] Patient has been identified by name and Date of (Y/N): Y Patient: Margarita Betancourt Date of : 1940 Provider for this encounter: Eder Pal MD Reason for the call/escalation: Daughter stated patient's imaging orders have . Said Centralized Scheduling would not schedule appointments due to inactive orders. Said she also has some medical questions regarding patient's medication. Daughter would like to be contacted. Was Patient Referred to [facility]/Seek Emergency Treatment (Y/N): N Did Patient Agree (Y/N): na Was An Attempt Made To Transfer The Patient To The Office (Y/N): N Were You Able To Reach Someone At The Office (Y/N): na If Yes - Patient Was Transferred To (Caregivers Name): na If No - Which [facility] Leadership Finisher Map And Chart Did You Speak With Regarding This Patient: na Was an appointment scheduled (Y/N): N Reason patient was requesting visit (RFV/signs and symptoms/diagnosis) : Medical Questions Person calling if other than patient: Estefany Pereira (Daughter) Return call to if other than patient: Estefany Pereira (Daughter) Best contact number: [phone] Thank you, Lorna Lopez October 18, 2022 1:42 PM documented in this encounter [facility] 10-07-2022 Miscellaneous Notes Please call pt to sched appt. No office visit since 01/2022 Pharmacy faxed requesting the following refill Refill(s) Requested: Requested Prescriptions Pending Prescriptions Disp Refills omeprazole (PRILOSEC) 40 mg capsule [Pharmacy Med Name: OMEPRAZOLE DR 40 MG CAPSULE] 60 capsule 0 Sig: TAKE 1 CAPSULE BY MOUTH TWICE A DAY ALLERGIES Allergen Reactions Meperidine Unknown, Vomiting (home) [phone] (work) Last Office Visit Date: 01/27/2022 Last [facility] Visit: 02/21/2022 Future Appointment: Visit date not found The patients preferred pharmacy has been captured for this encounter? yes Request is for script(s) to be escript to pharmacy. Lily Cook LPN documented in this encounter [facility] 09-07-2022 Miscellaneous Notes Attempt #1: Called Pt's preferred contact #. The voice recording was for [employer]. The mailbox was full. Patient was seen on 01/27/22 and was to return in 3 months around 04/29/22. Please call and schedule patient for an appointment. Thank you documented in this encounter [facility] 07-01-2022 Instructions Edna Shaw APRN.LEAH - 07/01/2022 12:00 PM EDT Ice and heat as tolerated Activity as tolerated documented in this encounter [facility] 07-01-2022 History of Present illness Narrative Review of Systems Constitutional: Positive for activity change. Negative for chills, fever and unexpected weight change. Gastrointestinal: Negative for bowel retention or incontinence Genitourinary: Negative for difficulty urinating. Negative for bladder retention or incontinence Musculoskeletal: Positive for back pain, gait problem, joint swelling and myalgias. Negative for arthralgias, neck pain and neck stiffness. Neurological: Positive for weakness. Negative for numbness and headaches. Psychiatric/Behavioral: Positive for dysphoric mood and sleep disturbance. Negative for suicidal ideas. The patient is nervous/anxious. Images from the original note were not included. [facility] Phone: Date of Evaluation: 07/01/2022 Patient Name: Margarita Betancourt : 1940 Subjective: Patient presents with: Rx Refills Low back, hip and ankle pain HPI: Pain score 5-8/10 Margarita Betancourt is a 82 year old female who presents for follow up evaluation of low back, hip and ankle pain.Margarita is accompanied by her cjujubyw-qw-feu this morning for her visit. The foerretd-uc-tod states that she cries out in pain from time to time most notably in the last month as the pain has increased in severity and frequency.She indicates that the pain is across her low back into her buttock and down into her bilateral lower extremities.Denies LOC of bowel and bladder, no BLE weakness, no recent falls. Ambulates with a walker. Aggravating factor: movement Alleviating factors:heat alternating ice, voltaren Sleep pattern: pain awakens her Treatments tried: injections in the past Margarita has a PMH of Alzheimer's (diagnosed 2018), HTN, CVA, DVT on Eliquis, BERTA, GERD, T2DM, superficial thrombophlebitis, female stress incontinence, HL, s/p bilateral CTR, R eye blindness, s/p R hip fracture, s/p R TKR, s/p ORIF (2018) who presents regarding ongoing lower back, hip and ankle pain She had COVID last month and could not make appointment. Per conversation with Dr. Pal at visit 05/10/22: With regards to medications, pt has trialed Tylenol (no benefit) and cannot take NSAIDs due to concurrent use of Eliquis. With regards to neuropathic medications, patient has trialed gabapentin (no benefit) as well as limited relief from topical Lidocaine. She has been maintained on hydrocodone 5 mg versus 7.5 mg as needed by her PCPs office which has been effective for her pain, however this has been complicated by pruritus. While initiation of chronic opioid therapy is concerning in the setting of patient's known dementia and risk of sedation/falls, patient is unable to tolerate NSAIDs and neuropathic's have caused sedation/mental status changes for her as well. While she may benefit from optimization of her neuropathic pain medication regimen, plan was made to first downtitrate her overall MME from Hydrocodone-APAP 5-325mg (MME 5) vs 7.5-325mg (MME 7.5) and rotate to low-dose oxycodone-APAP 2.5-325mg (MME 3.75) to reduce her MME per dose and assess if this results in less opioid-induced pruritis. She further requires close observation with regards to opioid induced sedation/respiratory depression/nausea/vomiting/consti pation while under nursing care through family and [facility]. Will plan on readdressing response and to assess for side effects at the 1 month follow-up taniya due to patient's high risk of side effects while on this therapy. Furthermore, initiation of neuropathic medications must be done with caution due to the high risk of sedation/fall risk as noted above, however this will need to be optimized moving forward. Pain Assessment: INTAKE PAIN ASSESSMENT 05/10/2022 07/01/2022 Are you having pain associated with your visit today? Yes, Provider notified Yes, Provider notified Pain Scales Verbal (Numeric Rating or Visual Analog Scale) Verbal (Numeric Rating or Visual Analog Scale) Pain Level 5 5 Pain Location (No Data) Back-Lower Description Aching Burning;Aching;Sore Duration Units Years Years Frequency Intermittent Continuous Intervention/Comfort measure Medication Reposition;Relaxation;Medication OARRS Report: PDMP website checked and validated. All prescriptions have been APPROPRIATELY filled. No suspicious activity was identified. 07/01/2022 by Edna Shaw APRN.LEAH Past Medical History: 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 2 diabetes mellitus Dyspnea Edema of upper extremity Fatigue Female stress incontinence Generalized anxiety disorder GERD (gastroesophageal reflux disease) Hip joint painful on movement Insomnia Insulin-treated type 2 diabetes mellitus (HCC) Mixed hyperlipidemia Muscle weakness (generalized) Obesity (BMI 30-39.9) Poor short term memory Premature beats Superficial thrombophlebitis Type 2 diabetes mellitus without complication (HCC) Urinary tract infectious disease Past Surgical History: PAST SURGICAL HISTORY Procedure Laterality Date BLADDER SURGERY HX LIGATE FALLOPIAN TUBE REPAIR EPIGASTRIC HERNIA,REDUC REVISE MEDIAN N/CARPAL TUNNEL SURG TOTAL ABDOM HYSTERECTOMY 09/04/1983 Family History: FAMILY HISTORY Problem Relation Age of Onset Colon Cancer Brother other (myocardial infarction) Brother Social History: Social History Tobacco Use Smoking status: Never Smokeless tobacco: Never Vaping Use Vaping Use: Never used Substance Use Topics Alcohol use: Never Drug use: Never Allergies: ALLERGIES Allergen Reactions Meperidine Unknown, Vomiting Current Medications: ipratropium-albuterol (DUONEB) 0.5 mg-3 mg(2.5 mg base)/3 mL nebu USE 1 VIAL IN NEBULIZER 4 TIMES DAILY ELIQUIS 5 mg tab(s) TAKE 1 TABLET BY MOUTH EVERY DAY insulin lispro (HUMALOG KWIKPEN) 100 unit/mL INJECT 18 UNITS SUBCUTANEOUSLY THREE TIMES DAILY BEFORE MEALS. MEDICATION, NON-DATABASE Co q 10 b complex Calcium & vit d omeprazole (PRILOSEC) 40 mg capsule Take 1 capsule by mouth twice daily. lisinopril (ZESTRIL, PRINIVIL) 20 mg tablet Take 1 tablet by mouth once daily. QUEtiapine (SEROQUEL) 25 mg tablet TAKE 1/2 TABLET AT BEDTIME SCHEDULED, AND TAKE 1/2 TABLET DAILY NEEDED MV with Pzt-Eomxqcru-Wwxvbh (CENTRUM SILVER) 0.4-300-250 mg-mcg-mcg tab Centrum Silver Tablet Centrum Silver Tablet Active 1 TAB DAILY December 23, 2015 3:40pm 12-23-2015 [facility] (90674) docusate sodium (COLACE) 100 mg capsule Take by mouth. magnesium hydroxide (MOM) 400 mg/5 mL suspension Take by mouth as needed. PRODIGY LANCETS MISC four times daily. blood sugar diagnostic (PRODIGY NO CODING) test strip four times daily. citalopram (CELEXA) 40 mg tablet Take 40 mg by mouth q 24 HR. gabapentin (NEURONTIN) 300 mg capsule Take 300 mg by mouth twice daily. oxyCODONE-acetaminophen (PERCOCET) 5-325 mg tablet Take 1/2 pill in the morning and 1/2 pill in at night. 5 extra this month only for sever pain- 1/2 TID not to exceed 3 half tablets per day. Adjust OTC Tylenol dose accordingly. [START ON 07/31/2022] oxyCODONE IR (ROXICODONE) 5 mg immediate release tablet Take 1/2 in morning and 1/2 in evening Do not start before July 31, 2022. insulin glargine (LANTUS SOLOSTAR U-100 INSULIN) 100 unit/mL (3 mL) Inject 18 Units subcutaneously daily at bedtime. metoprolol succinate ER (TOPROL XL) 50 mg 24 hr tablet Take 1 tablet by mouth once daily. I have confirmed and edited as necessary, the PFSH and ROS obtained by others. MEDICATION NAME oxycodone STRENGTH 5 LAST FILL DATE 06/29/2022 DATE LAST DOSE TAKEN 07/01/22 QUANTITY FILLED 5 QUANTITY REMAINING 3 Objective: Pulse 77 Resp 14 SpO2 95% Physical Exam Constitutional: Appearance: Normal appearance. HENT: Head: Normocephalic. Right Ear: External ear normal. Left Ear: External ear normal. Eyes: Extraocular Movements: Extraocular movements intact. Cardiovascular: Pulses: Normal pulses. Pulmonary: Effort: Pulmonary effort is normal. Musculoskeletal: Comments: BLE strength 3/5 symmetrical BLE sensation intact and symmetrical SLR negative bilaterally Patellar reflexes +2 Tenderness over L3-L5 paraspinal musculature with myofacial dysfunction noted along these levels Skin: General: Skin is warm and dry. Capillary Refill: Capillary refill takes 2 to 3 seconds. Neurological: General: No focal deficit present. Mental Status: She is alert and oriented to person, place, and time. Psychiatric: Mood and Affect: Mood normal. Behavior: Behavior normal. Imaging: MRI Spine Report No resulted procedures found. ASSESSMENT/PLAN: 1. Primary osteoarthritis of both hips - ICD9: 715.15, ICD10: M16.0 (primary diagnosis) 2. Lumbar spondylosis - ICD9: 721.3, ICD10: M47.816 3. Primary osteoarthritis of right knee - ICD9: 715.16, ICD10: M17.11 4. Myofascial pain - ICD9: 729.1, ICD10: M79.18 TPI 5. Encounter for long-term (current) use of medications - ICD9: V58.69, ICD10: Z79.899 An opioid agreement was reviewed and signed with the patient. A copy was given to the patient. OARRS was reviewed and was consistent with the history. A drug screen pecimen was obtained for toxicology screening. Adequate analgesia, ADLS's maintained, no adverse effects, no aberrant behaviors noted The patient and I discussed the nature of this medication and its side effects. We discussed tolerance, physical dependence, psychological dependence, addiction and opioid-induced hyperalgesia. We discussed the need for safe storage of medication We discussed the potential need to wean from this medication. We discussed the availability of programs that can help with this process if necessary. We discussed safety issues related to opioids including safe storage. We discussed the fact that the patient should not drive an automobile or operate heavy machinery while taking this medication. Patient reports they are happy with current treatment care path. For this reason I will refill the patient's opioids today for 60 days. The patient continues to see benefit and improvement in their quality of life and ability to maintain ADLs. Patient advised that the medications may cause impairment of judgement while driving or operating machinery. We will re-evaluate the opiate regimen in 60 days at an office visit to determine efficacy of treatment to ensure that we are using the lowest dose for maximum benefit. Examined patient and confirmed kirby findings on history and examination and ROS as noted above. Some elements of my note were copied from 05/10/22 , which have been updated where appropriate and reflect my current medical decision making for today at 07/01/22. TPI for lumbar myofacial dysfunction UDS today Lumbar CT and x-ray are ordered and the fgnnyhmj-vq-[id number] will schedule a soon as possible Discussed increased severity and frequency of pain with Dr. Acevedo, we feel that the risk-benefit of increasing the Percocet 5/325 to an extra half tablet for severe pain over the next 60 days is appropriate for her current condition. This will be a one-time prescription for 5 extra tablets of Percocet 5/325 #35 instead of 30 one time only. The qtiyeqek-ck-qqd understands that she will adjust the vuxh-ngo-fswuqvf Tylenol for the extra half of the Percocet to maintain the Tylenol dosage at 3000 mg daily. Patient verbalizes understanding of home going instructions and is in agreement with the discharge plan. Patient questions were answered to their satisfaction. Edna Shaw APRN.PHARMACIST ASSISTANT Return in about 2 months (around 08/31/2022) for ov in person for refill, keep next OV has appointment 09/06/22. This note was partially generated using [employer] voice recognition system. documented in this encounter [facility] 06-28-2022 Miscellaneous Notes Spoke to patient daughter. She stated patient was unable to come in for appt. In June due to having Covid. She has been reschedule for 07/01/22 with Edna in [place]. Patients daughter is asking for bridge scrip until she can be seen. Please advise Rosa Baptiste Sewell to Dr. Pal, Dr. Shay, Workers Compensation [facility] P: [id number] / F: [phone] / [email or web address] documented in this encounter [facility] 06-06-2022 Miscellaneous Notes Pharmacy faxed requesting the following refill Refill(s) Requested: Requested Prescriptions Pending Prescriptions Disp Refills ipratropium-albuterol (DUONEB) 0.5 mg-3 mg(2.5 mg base)/3 mL nebu [Pharmacy Med Name: ipratropium 0.5 mg-albuterol 3 mg (2.5 mg base)/3 mL nebulization soln] 11 Sig: USE 1 VIAL IN NEBULIZER 4 TIMES DAILY ALLERGIES Allergen Reactions Meperidine Unknown, Vomiting (home) [phone] (work) Last Office Visit Date: 01/27/2022 Last Distance Health Visit: 02/21/2022 Future Appointment: Visit date not found The patients preferred pharmacy has been captured for this encounter? yes Request is for script(s) to be escript to pharmacy. Lily Cook LPN documented in this encounter [facility] 05-12-2022 Miscellaneous Notes I have attempted to contact this patient by phone, Left brief message on cell voicemail stating to call and schedule 4 week follow up with Dr. Pal. Ok to over book per TB Rosa Baptiste Sewell to Dr. Pal, Dr. Shay, Workers Compensation [facility] P: [id number] / F: [phone] / [email or web address] documented in this encounter [facility] 05-10-2022 History of Present illness Narrative Review of Systems Constitutional: Negative for activity change, chills, fever and unexpected weight change. Gastrointestinal: Negative for bowel retention or incontinence Genitourinary: Negative for difficulty urinating. Negative for bladder retention or incontinence Musculoskeletal: Positive for arthralgias, back pain, gait problem and joint swelling. Negative for myalgias, neck pain and neck stiffness. Neurological: Negative for weakness, numbness and headaches. Psychiatric/Behavioral: Positive for sleep disturbance. Negative for dysphoric mood and suicidal ideas. The patient is nervous/anxious. Images from the original note were not included. [facility] Name: Margarita Betancourt : 1940 Purpose: Followup Evaluation Date 05/10/2022 Chief Complaint: lower back, hip and ankle pain Interval HPI: Margarita Betancourt is a 82 year old year-old female with Alzheimer's (diagnosed 2018), HTN, CVA, DVT on Eliquis, BERTA, GERD, T2DM, superficial thrombophlebitis, female stress incontinence, HL, s/p bilateral CTR, R eye blindness, s/p R hip fracture, s/p R TKR, s/p ORIF (2018) who presents regarding ongoing lower back, hip and ankle pain. Patient was seen for initial evaluation on 04/11/2022 where patients family reported a 1 year of progressively worsening bilateral lower back/buttock pain (referred to as hip pain as patient), with pain skipping the thighs, restarting in the calf, lateral ankle to the bilateral feet, largely over the toes worsened with standing >1min, walking >1min, flexion/extension. 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 Patient's history presentation imaging were concerning for multifactorial lower back pain including components of: lumbar spinal stenosis with neurogenic claudication vs lumbar facet arthropathy vs myofascial pain with palpable trigger points on exam. Concern further remains for IA hip pathology, however much of her pain is situated over her back and radiating down her legs. Plan was made to obtain a CT L-spine as well as updated XR L-spine, XR bilateral hip plain films to assess for any osseous or nerve root pathology which may be contributing to her symptoms, as she had evidence of moderate canal stenosis at L3-4 and L4-5 as well as facet arthropathy on her MRI L-spine from 2017.. She would further benefit from TPI's to the bilateral lumbar paraspinal muscle groups for symptomatic relief. With regards to medications, pt has trialed Tylenol (no benefit) and cannot take NSAIDs due to concurrent use of Eliquis. With regards to neuropathic medications, patient has trialed gabapentin (no benefit) as well as limited relief from topical Lidocaine. She has been maintained on hydrocodone 5 mg versus 7.5 mg as needed by her PCPs office which has been effective for her pain, however this has been complicated by pruritus. While initiation of chronic opioid therapy is concerning in the setting of patient's known dementia and risk of sedation/falls, patient is unable to tolerate NSAIDs and neuropathic's have caused sedation/mental status changes for her as well. While she may benefit from optimization of her neuropathic pain medication regimen, plan was made to first downtitrate her overall MME from Hydrocodone-APAP 5-325mg (MME 5) vs 7.5-325mg (MME 7.5) and rotate to low-dose oxycodone-APAP 2.5-325mg (MME 3.75) to reduce her MME per dose and assess if this results in less opioid-induced pruritis. She further requires close observation with regards to opioid induced sedation/respiratory depression/nausea/vomiting/consti pation while under nursing care through family and [facility] [employer] home services. Will plan on readdressing response and to assess for side effects at the 1 month follow-up taniya due to patient's high risk of side effects while on this therapy. Furthermore, initiation of neuropathic medications must be done with caution due to the high risk of sedation/fall risk as noted above, however this will need to be optimized moving forward. Plan at last visit: Interventional Procedure(s): TPIs to the bilateral lumbar parspinal Medication(s): - start low dose Oxycodone-APAP 2.5-325mg BID #60 tablets 0 refills - will readdress need for chronic opioid therapy after optimization of neuropathic regimen and imaging workup - consider restarting Gabapentin vs initiation of Lyrica Additional Studies: CT L-spine XR L-spine flex/ex XR bilateral hip Referrals: No additional considerations at present Functional Caodaism:No changes-continue current regimen Depending on response to the above-mentioned plan of care, in the future may consider evaluation for: consider ANGEL vs MBBs pending MRI L-spine and further imaging -Follow-up: after CT L-spine Interval Events: 04/12/22: Patient was started on low dose Oxycodone-APAP 2.5-325mg BID #60 tablets 0 refills at her visit on 04/11/22. Pts pharmacy is unable to supply this dose, and have requested Oxycodone-APAP 5-325mg #30 tablets, which can then be cut in half and used at BID dosing by the patient. Today, pt and patients family reports good tolerance of her regimen of Tylenol and Oxycodone-APAP 5-325mg 1/2 tablet BID, with no significant pruritus unlike hydrocodone. Patient reports that she currently has manageable pain on her regimen of oxycodone 2.5mg BID. She further has had benefit from Voltaren 1% gel applied directly to her affected areas. She reconfirms bilateral lower back/buttock pain (referred to as hip pain by patient), with pain skipping the thighs, restarting in the calf, lateral ankle to the bilateral feet, largely over the toes. Pain is worsened with standing >1min, walking >1min, flexion/extension. She has had mild improvement with PT with regards to strength and ROM, however patient's family reports that she has progressively had increased pain and decreased mobility. 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 Of note, patient had positive UDS on her initial evaluation on 04/06/2022 for oxycodone, while PDMP showed prescriptions for hydrocodone only. Patient's family members had attested on her initial visit on 04/11/2022 that she received oxycodone from a family member due to worsening pain as she has stopped her hydrocodone due to pruritus, as they did not have access to any other medications due to multiple side effects from neuropathic's and a contraindication to NSAIDs. [facility] opioid contract policy was reviewed at that time regarding not taking any medications that were not prescribed to patient directly. XR hip on 02/16/19: Findings: An AP view of the pelvis and AP and frogleg lateral views of the right hip reveal the bones to be reasonably well mineralized. There is a comminuted intertrochanteric fracture of the right femur with avulsion of the lesser trochanter. There is overriding of the fracture fragments. The right emoral head is rotated but well situated within the acetabulum. With regards to medications, patient is on Eliquis, Quetiapine, Tylenol 500mg q8h, Oxycodone-APAP 5-325mg QD(taking as 2.5mg BID), Voltaren gel 1%. Initial HPI: Margarita Betancourt is a 82 year old year-old female with Alzheimer's (diagnosed 2018), HTN, CVA, DVT on Eliquis, BERTA, GERD, T2DM, superficial thrombophlebitis, female stress incontinence, HL, s/p bilateral CTR, R eye blindness, s/p R hip fracture, s/p R TKR, s/p ORIF (2018) who presents regarding ongoing lower back, hip and ankle pain Per PCP records, patient has been managed with short courses of hydrocodone-acetaminophen 7.5-325 mg as needed use due to multiple contraindications for other pain medications including CVA/stroke which limits her use of NSAIDs as well as limited benefit from neuropathic pain medications iso of patients known memory loss. Today, pt and patients family reports 1 year of progressively worsening bilateral lower back/buttock pain (referred to as hip pain as patient), with pain skipping the thighs, restarting in the calf, lateral ankle to the bilateral feet, largely over the toes. Pain is a 5/10 burning, worsened with standing >1min, walking >1min, flexion/extension. She has had mild improvement with PT with regards to strength and ROM, however patient's family reports that she has progressively had increased pain and decreased mobility. 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 Patient has trialed Tylenol (no benefit) and cannot take NSAIDs due to concurrent use of Eliquis. She has trialed ibuprofen (no benefit) and naproxen (no benefit) in the past. With regards neuropathic, patient has trialed gabapentin (no benefit) as well as lidocaine 5% gel Lidocaine 5% patch. Home PT was completed for > 6 weeks in 2020 (mild relief). MRI L-spine from 03/11/2017 shows:IMPRESSION: 1. Multilevel disc bulge with lumbar facet osteoarthritis. 2. Moderate canal stenosis at L3-L4 and L4-L5 secondary to disc bulge, ligamentum flavum hypertrophy and facet osteoarthritis. 3. L1 to left far lateral disc protrusion with severe left lateral recess and neural foraminal stenosis. 4. Large left renal exophytic cyst. Specifically: Findings: There are a assumed five lumbar type vertebra for the purpose of dictation. Alignment and positioning of lumbar vertebra is anatomic. he osseous structures maintain normal signal intensity without evidence of wedge fracture or compression deformity. T12-L1: The intervertebral disc maintains ormal signal intensity without evidence of bulge or herniation. Mild facet osteoarthritis. No foraminal narrowing or spinal stenosis is noted. L1-L2: The disc is esiccated with diffuse disc bulge and superimposed left lateral disc protrusion. There is mild canal stenosis. There is severe left-sided left lateral recess and eural foraminal narrowing Mild ligamentum flavum hypertrophy. The facets are unremarkable. No right-sided neural oraminal stenosis is evident. L2-L3: The ntervertebral disc maintains normal signal intensity without evidence of bulge or herniation. Facet osteoarthritis with mild bilateral posterior lateral canal tenosis. No foraminal narrowing or spinal stenosis is noted. L3-L4: Broad-based disc bulge with ligamentum flavum hypertrophy and facet osteoarthritis result in moderate canal stenosis with moderate left lateral recess stenosis. Mild bilateral neural foraminal narrowing is seen. L4-L5: Broad-based disc bulge with ligamentum flavum hypertrophy and facet osteoarthritis result in moderate canal and bilateral lateral recess stenosis, right greater than left. There is moderate right and mild left neural foraminal stenosis. L5-S1: Diffuse disc bulge with facet osteoarthritis results in no canal stenosis. There is no contact of traversing S1 nerve roots. Mild bilateral neural foraminal narrowing is seen. XR hip on 02/16/19: Findings: An AP view of the pelvis and AP and frogleg lateral views of the right hip reveal the bones to be reasonably well mineralized. There is a comminuted intertrochanteric fracture of the right femur with avulsion of the lesser trochanter. There is overriding of the fracture fragments. The right emoral head is rotated but well situated within the acetabulum. With regards to medications, patient is on Eliquis, Quetiapine, Tylenol 650mg q6h, Gabapentin 300mg BID (not taking), Hydrocodone-APAP 7.5-325mg QID acute script #28 tabs (last written by Dr. Krishnamurthy). No benefit with Tramadol, Hydrocodone, Hydrocodone causing pruritis. Pt otherwise denies fevers, chills, weight loss, weakness, saddle anesthesia, bowel/bladder incontinence or retention. Pain Assessment: INTAKE PAIN ASSESSMENT 04/14/2021 04/29/2021 Are you having pain associated with your visit today? No No Medications requiring refills today: Oxycodone-APAP 5-325mg QD (taking as 2.5mg BID) Date last filled: 04/13/22 Quantity filled: 30 How many left: 4 Time most recent dose taken: 05/09/22 AG SPINE COMBINATION 05/10/2022 Questionnaire Completed Date Questionnaire URINE DRUG SCREEN Completed Date 04/11/2022 Comments Completed but not documented Questionnaire NA/OIC Completed Date 04/11/2022 Comments Completed but not documented Questionnaire Completed Date Comments AG SPINE PAIN PILL COUNT 05/10/2022 Medication Name percocet Strength 5 Date Last Dose Taken 05/09/22 Comments pt did not bring bottle Compliance: Safety Checklist: Are you taking proper precautions to safe guard your medication? Yes Taking the medications as prescribed? Yes Getting pain medications from another physician? No Obtaining pain medication from another source? No Sharing medications with friends/family? No Quality of life improved as a result of taking these medications? Yes Any side effect with this medication? No Justification for Continued Opioid Care: Adequate analgesia? Yes Aberrant drug seeking behavior? No Adverse reactions? No Medications improve quality of life? Yes Compliance: PDMP website checked and validated. All prescriptions have been APPROPRIATELY filled. No suspicious activity was identified. 05/10/2022 by Eder Pal MD Last UDS: 04/11/22: positive for Gabapentin and Oxycodone as expected (pts family attested to pt receiving oxycodone from family member due to development of pruritis with Hydrocodone which had been stopped) Allergies: ALLERGIES ALLERGIES Allergen Reactions Meperidine Unknown, Vomiting CURRENT MEDICATIONS Current Outpatient Medications Medication Sig Dispense Refill insulin glargine (LANTUS SOLOSTAR U-100 INSULIN) 100 unit/mL (3 mL) Inject 18 Units subcutaneously daily at bedtime. 1 Pen 5 MEDICATION, NON-DATABASE Co q 10 b complex Calcium & vit d insulin lispro (HUMALOG KWIKPEN INSULIN) 100 unit/mL Inject 18 Units subcutaneously three times daily before meals. 16.2 mL 2 omeprazole (PRILOSEC) 40 mg capsule Take 1 capsule by mouth twice daily. 180 capsule 1 HYDROcodone-Acetaminophen (NORCO) 7.5-325 mg per tablet Take 1 tablet by mouth every 8 hours as needed for pain. 20 tablet 0 ELIQUIS 5 mg tab(s) TAKE 1 TABLET BY MOUTH EVERY DAY 30 tablet 3 metoprolol succinate ER (TOPROL XL) 50 mg 24 hr tablet Take 1 tablet by mouth once daily. 90 tablet 3 lisinopril (ZESTRIL, PRINIVIL) 20 mg tablet Take 1 tablet by mouth once daily. 90 tablet 11 QUEtiapine (SEROQUEL) 25 mg tablet TAKE 1/2 TABLET AT BEDTIME SCHEDULED, AND TAKE 1/2 TABLET DAILY NEEDED (Patient not taking: Reported on 01/27/2022 ) 90 tablet 1 ipratropium-albuterol (DUONEB) 0.5 mg-3 mg(2.5 mg base)/3 mL nebu USE 1 VIAL IN NEBULIZER 4 TIMES DAILY 120 mL 11 MV with Pmk-Qjfvoqcy-Jcoecq (CENTRUM SILVER) 0.4-300-250 mg-mcg-mcg tab Centrum Silver Tablet Centrum Silver Tablet Active 1 TAB DAILY December 23, 2015 3:40pm 12-23-2015 [facility] ([id number]) acetaminophen (TYLENOL) 325 mg tablet Take by mouth every 6 hours as needed. docusate sodium (COLACE) 100 mg capsule Take by mouth. magnesium hydroxide (MOM) 400 mg/5 mL suspension Take by mouth as needed. PRODIGY LANCETS MISC four times daily. blood sugar diagnostic (PRODIGY NO CODING) test strip four times daily. citalopram (CELEXA) 40 mg tablet Take 40 mg by mouth q 24 HR. (Patient not taking: Reported on 01/27/2022 ) gabapentin (NEURONTIN) 300 mg capsule Take 300 mg by mouth twice daily. (Patient not taking: Reported on 04/14/2021) ibuprofen (MOTRIN) 800 mg tablet Take 800 mg by mouth every 8 hours as needed. (Patient not taking: Reported on 04/29/2021 ) No current facility-administered medications for this visit. PAST MEDICAL HISTORY 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 2 diabetes mellitus Dyspnea Edema of upper extremity Fatigue Female stress incontinence Generalized anxiety disorder GERD (gastroesophageal reflux disease) Hip joint painful on movement Insomnia Insulin-treated type 2 diabetes mellitus (HCC) Mixed hyperlipidemia Muscle weakness (generalized) Obesity (BMI 30-39.9) Poor short term memory Premature beats Superficial thrombophlebitis Type 2 diabetes mellitus without complication (HCC) Urinary tract infectious disease PAST SURGICAL HISTORY PAST SURGICAL HISTORY Procedure Laterality Date BLADDER SURGERY HX LIGATE FALLOPIAN TUBE REPAIR EPIGASTRIC HERNIA,REDUC REVISE MEDIAN N/CARPAL TUNNEL SURG TOTAL ABDOM HYSTERECTOMY 09/04/1983 Current Medications, Past Medical History, Past Surgical History, Family History & Social History: As per above and per nursing documentation reviewed on today's date (noted above) Review of Systems: Pertinent positives and negatives as per nursing note reviewed on today's date (noted above) Diagnostic Studies: Reviewed Personally on today's date MRI Spine Report No resulted procedures found. DATE PROCEDURE % OF IMPROVEMENT (DURATION) None Physical Exam: Vitals There were no vitals filed for this visit. Constitutional: well appearing Eyes: Conjunctiva clear. No discharge from eyes Cardiovascular: Appears well perfused Lymphatic: No visible regional lymphadenopathy Skin: No visible rashes or ecchymosis Psychiatric: Full affect, Alert, Pleasant Palpation: (-) Midline cervical thoracic/lumbosacral spine tenderness (+) Lumbosacral paraspinal muscle tenderness (-) SIJ tenderness (-) piriformis muscle tenderness (-) Greater trochanter tenderness bilaterally ROM: Lumbar spine: flexion, extension, side-bending, rotation all full and painless Manuevers: (-) SLR negative bilaterally (+) Facet loading (Varma's Test) bilaterally (-) Kadeem's/FABERs bilaterally (-) Kailey Finger Test to SIJ on two attempts Cervical spine: (-) Spurling's negative bilaterally (-) L'Hermitte's sign negative. ROM: Cervical spine: rotation, side-bending extension and flexion of cervical spine smooth and painless. Muscles: muscle spasm, trigger points, atrophy, fasciculation not appreciated 5/5 strength in all upper and lower extremity myotomes. Gait normal. Heel and toe gait normal. Neuro: Reflexes: DTRs 2+ in biceps, triceps, brachialis, patellar and achilles bilaterally. Reeves's and Babinski negative bilaterally. No clonus. Sensation: grossly intact to light touch, cold, pin prick; no presence of allodynia, hyperesthesia, hypoesthesia, hyperpathia Diagnoses: No diagnosis found. Impression: Margarita Betancourt is a 82 year old year-old female with Alzheimer's (diagnosed 2018), HTN, CVA, DVT on Eliquis, BERTA, GERD, T2DM, superficial thrombophlebitis, female stress incontinence, HL, s/p bilateral CTR, R eye blindness, s/p R hip fracture, s/p R TKR, s/p ORIF (2018) who presents regarding ongoing lower back, hip and ankle pain. Pt and patients family reports 1 year of progressively worsening bilateral lower back/buttock pain (referred to as hip pain as patient), with pain skipping the thighs, restarting in the calf, lateral ankle to the bilateral feet, largely over the toes worsened with standing >1min, walking >1min, flexion/extension. 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 MRI L-spine from 03/11/2017 shows:IMPRESSION: 1. Multilevel disc bulge with lumbar facet osteoarthritis. 2. Moderate canal stenosis at L3-L4 and L4-L5 secondary to disc bulge, ligamentum flavum hypertrophy and facet osteoarthritis. 3. L1 to left far lateral disc protrusion with severe left lateral recess and neural foraminal stenosis. 4. Large left renal exophytic cyst. Patient's history presentation imaging are concerning for multifactorial lower back pain including components of: lumbar spinal stenosis with neurogenic claudication vs lumbar facet arthropathy vs myofascial pain with palpable trigger points on exam. Concern further remains for IA hip pathology, however much of her pain is situated over her back and radiating down her legs. Plan was made to obtain a CT L-spine as well as updated XR L-spine, XR bilateral hip plain films to assess for any osseous or nerve root pathology which may be contributing to her symptoms. She would further benefit from TPI's to the bilateral lumbar paraspinal muscle groups for symptomatic relief. With regards to medications, pt has trialed Tylenol (no benefit) and cannot take NSAIDs due to concurrent use of Eliquis. With regards o neuropathic medications, patient has trialed gabapentin (no benefit) as well as limited relief from topical Lidocaine. She has been maintained on hydrocodone 5 mg versus 7.5 mg as needed by her PCPs office which has been effective for her pain,however this has been complicated by pruritus. While initiation of chronic opioid therapy is concerning in the setting of patient's known dementia and risk of sedation/falls, patient is unable to tolerate NSAIDs and neuropathic's have caused sedation/mental status changes for her as well. While she may benefit from optimization of her neuropathic pain medication regimen, plan was made to first downtitrate her overall MME from Hydrocodone-APAP 5-325mg (MME 5) vs 7.5-325mg (MME 7.5) and rotate to low-dose oxycodone-APAP 2.5-325mg (MME 3.75) to reduce her MME per dose and assess if this results in less opioid-induced pruritis. She further requires close observation with regards to opioid induced sedation/respiratory depression/nausea/vomiting/consti pation while under nursing care through family and [facility]. Will plan on readdressing response and to assess for side effects at the 1 month follow-up taniya due to patient's high risk of side effects while on this therapy. Furthermore, initiation of neuropathic medications must be done with caution due to the high risk of sedation/fall risk as noted above, however this will need to be optimized moving forward. On follow-up evaluation, patient has tolerated rotation to low-dose oxycodone-APAP 2.5-325mg BID with no evidence of opioid induced-pruritis. She continues to have good pain control with this regimen as well as low-dose Tylenol and Voltaren 1% gel. Plan was made to continue this regimen as patient does not have any evidence of sedation/respiratory depression/nausea/vomiting/consti pation and her medication is being dispensed under nursing care through [facility] and through family members at bedside. Due to ongoing titration of her current medication regimen, plan was made to see her for repeat evaluation in 4 weeks. Of note, patient had positive UDS on her initial evaluation on 04/06/2022 for oxycodone, while PDMP showed prescriptions for hydrocodone only. Patient's family members had attested on her initial visit on 04/11/2022 that she received oxycodone from a family member due to worsening pain as she has stopped her hydrocodone due to pruritus, as they did not have access to any other medications due to multiple side effects from neuropathic's and a contraindication to NSAIDs. [facility] opioid contract policy was reviewed at that time regarding not taking any medications that were not prescribed to patient directly. Pt and pts family were in agreement with this. Plan: Margarita Betancourt would benefit from the following to reach personal goals for decreasing pain, improving function and work participation, and/or improving quality of life: 82 year old female being treated for the conditions noted above, who presents today for medication refill. After verifying the history noted above, performing a focused physical examination, and reviewing available compliance data including (where available) the PDMP/OARRS system, pill counts, toxicology screens, the following plan is advised: Interventional Procedure(s): none The risks, benefits, alternative treatment options and prognosis of the procedure were discussed and all of the patient's questions/concerns were addressed to the patient's satisfaction. The patient expressed understanding and gave verbal consent to proceed. Medication(s): - continue low dose Oxycodone-APAP 2.5-325mg BID #60 tablets 0 refills - will readdress need for chronic opioid therapy after optimization of neuropathic regimen and imaging workup - continue Tylenol 500mg TID - continue Voltaren 1% gel Additional Studies: CT L-spine XR L-spine flex/ex XR bilateral hip XR knee Referrals: No additional considerations at present Functional Caodaism:No changes-continue current regimen Depending on response to the above-mentioned plan of care, in the future may consider evaluation for: consider ANGEL vs MBBs pending CT L-spine and further imaging -Follow-up: in 4 weeks to review medication regimen, CT L-spine Attribution: In addition to reviewing the information noted above, some elements copied from my most recent clinical note(s), including the physical exam (completed in entirety today), and the impression and plan sections, have been updated where appropriate. All reflect current medical decision making from today's date (noted above). Eder Pal MD PhD Pain Management [facility] documented in this encounter [facility] 04-25-2022 Miscellaneous Notes Pharmacy faxed requesting the following refill Refill(s) Requested: Requested Prescriptions Pending Prescriptions Disp Refills ELIQUIS 5 mg tab(s) [Pharmacy Med Name: ELIQUIS 5 MG TABLET] 30 tablet 3 Sig: TAKE 1 TABLET BY MOUTH EVERY DAY ALLERGIES Allergen Reactions Meperidine Unknown, Vomiting (home) [phone] (work) Last Office Visit Date: 01/27/2022 Last [facility] Visit: 02/21/2022 Future Appointment: 05/02/2022 The patients preferred pharmacy has been captured for this encounter? yes Request is for script(s) to be escript to pharmacy. Jaz Dawkins LPN documented in this encounter [facility] 04-18-2022 Miscellaneous Notes No Show Documentation Margarita Betancourt no showed for an appointment on 04/18/2022 with Eder Pal MD at 810am. She was scheduled for [id number]. I called and spoke with the patient regarding her missed appointment. Margarita stated the reason that she missed her appointment was because patient did not answer the phone so I left a vm . Resources discussed/offered to patient: patient did not answer the phone, so I called to leave a vm but the vm box is full. No show determined to be fault of patient: Yes This is the patients first no show in the last 12 months. Patient was rescheduled for n/a. Letter mailed : Yes Is this the Third or Fourth No Show? No Judy Dinero April 18, 2022 2:00 PM documented in this encounter [facility] 04-18-2022 Miscellaneous Notes Pharmacy faxed requesting the following refill Refill(s) Requested: Requested Prescriptions Pending Prescriptions Disp Refills insulin lispro (HUMALOG KWIKPEN) 100 unit/mL [Pharmacy Med Name: INSULIN LISPRO 100 UNIT/ML PEN] 2 Sig: INJECT 18 UNITS SUBCUTANEOUSLY THREE TIMES DAILY BEFORE MEALS. ALLERGIES Allergen Reactions Meperidine Unknown, Vomiting (home) [phone] (work) Last Office Visit Date: 01/27/2022 Last [facility] Visit: 02/21/2022 Future Appointment: 05/02/2022 The patients preferred pharmacy has been captured for this encounter? yes Request is for script(s) to be escript to pharmacy. Jaz Dawkins LPN documented in this encounter [facility] 04-12-2022 Miscellaneous Notes Someone called in on behalf of patient, no name left. Stating she is trying to get patient medication fixed, also stating the pharmacy and herself have tried to contact us multiple times (nothing documented). Caller is stating the pharmacy is stating they no longer provide Oxycodone 2.5. (prescribed at 04/11/2022 appointment) Requesting prescription be resent/rewritten to 5.0 and they could cut them in half for her. Please advise. Bear Boateng documented in this encounter [facility] 04-12-2022 Miscellaneous Notes Left patient a VM to get her scheduled. ----- Message from Barbara Roldan sent at 04/12/2022 11:54 AM EDT ----- Regarding: Pain Management / [Eder Pal MD ] / [No availability] Patient has been identified by name and Date of (Y/N): Yes Patient: Margarita Betancourt Date of : 1940 Provider for this encounter: Eder Pal MD Reason for the call/escalation: Patient says pharmacy has been contacting office in regards of prescription. Also, Estefany says she was told office would double book appointment with provider so patient is able to see provider within 30 days from 04/11. Please return call as soon as possible to further assist. Was Patient Referred to [facility]/Seek Emergency Treatment (Y/N): N/A Did Patient Agree (Y/N): N/A Was An Attempt Made To Transfer The Patient To The Office (Y/N): N/A Were You Able To Reach Someone At The Office (Y/N): N/A If Yes - Patient Was Transferred To (Caregivers Name): N/A If No - Which [facility] Leadership Finisher Map And Chart Did You Speak With Regarding This Patient: N/A Was an appointment scheduled (Y/N): No Reason patient was requesting visit (RFV/signs and symptoms/diagnosis) : N/A Person calling if other than patient: Estefany, Daughter in law Return call to if other than patient: Estefany Best contact number: [phone] Thank you, Barbara Roldan April 12, 2022 11:55 AM documented in this encounter [facility] 04-11-2022 History of Present illness Narrative Images from the original note were not included. [facility] Name: Margarita Betancourt : 1940 Purpose: New Patient Consultation Date 04/11/2022 Chief Complaint: lower back, hip and ankle pain Initial HPI: Margarita Betancourt is a 82 year old year-old female with Alzheimer's (diagnosed 2018), HTN, CVA, DVT on Eliquis, BERTA, GERD, T2DM, superficial thrombophlebitis, female stress incontinence, HL, s/p bilateral CTR, R eye blindness, s/p R hip fracture, s/p R TKR, s/p ORIF (2018) who presents regarding ongoing lower back, hip and ankle pain Per PCP records, patient has been managed with short courses of hydrocodone-acetaminophen 7.5-325 mg as needed use due to multiple contraindications for other pain medications including CVA/stroke which limits her use of NSAIDs as well as limited benefit from neuropathic pain medications iso of patients known memory loss. Today, pt and patients family reports 1 year of progressively worsening bilateral lower back/buttock pain (referred to as hip pain as patient), with pain skipping the thighs, restarting in the calf, lateral ankle to the bilateral feet, largely over the toes. Pain is a 5/10 burning, worsened with standing >1min, walking >1min, flexion/extension. She has had mild improvement with PT with regards to strength and ROM, however patient's family reports that she has progressively had increased pain and decreased mobility. 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 Patient has trialed Tylenol (no benefit) and cannot take NSAIDs due to concurrent use of Eliquis. She has trialed ibuprofen (no benefit) and naproxen (no benefit) in the past. With regards neuropathic, patient has trialed gabapentin (no benefit) as well as lidocaine 5% gel Lidocaine 5% patch. Home PT was completed for > 6 weeks in 2020 (mild relief). MRI L-spine from 03/11/2017 shows:IMPRESSION: 1. Multilevel disc bulge with lumbar facet osteoarthritis. 2. Moderate canal stenosis at L3-L4 and L4-L5 secondary to disc bulge, ligamentum flavum hypertrophy and facet osteoarthritis. 3. L1 to left far lateral disc protrusion with severe left lateral recess and neural foraminal stenosis. 4. Large left renal exophytic cyst. Specifically: Findings: There are a assumed five lumbar type vertebra for the purpose of dictation. Alignment and positioning of lumbar vertebra is anatomic. he osseous structures maintain normal signal intensity without evidence of wedge fracture or compression deformity. T12-L1: The intervertebral disc maintains ormal signal intensity without evidence of bulge or herniation. Mild facet osteoarthritis. No foraminal narrowing or spinal stenosis is noted. L1-L2: The disc is esiccated with diffuse disc bulge and superimposed left lateral disc protrusion. There is mild canal stenosis. There is severe left-sided left lateral recess and eural foraminal narrowing Mild ligamentum flavum hypertrophy. The facets are unremarkable. No right-sided neural oraminal stenosis is evident. L2-L3: The ntervertebral disc maintains normal signal intensity without evidence of bulge or herniation. Facet osteoarthritis with mild bilateral posterior lateral canal tenosis. No foraminal narrowing or spinal stenosis is noted. L3-L4: Broad-based disc bulge with ligamentum flavum hypertrophy and facet osteoarthritis result in moderate canal stenosis with moderate left lateral recess stenosis. Mild bilateral neural foraminal narrowing is seen. L4-L5: Broad-based disc bulge with ligamentum flavum hypertrophy and facet osteoarthritis result in moderate canal and bilateral lateral recess stenosis, right greater than left. There is moderate right and mild left neural foraminal stenosis. L5-S1: Diffuse disc bulge with facet osteoarthritis results in no canal stenosis. There is no contact of traversing S1 nerve roots. Mild bilateral neural foraminal narrowing is seen. XR hip on 02/16/19: Findings: An AP view of the pelvis and AP and frogleg lateral views of the right hip reveal the bones to be reasonably well mineralized. There is a comminuted intertrochanteric fracture of the right femur with avulsion of the lesser trochanter. There is overriding of the fracture fragments. The right emoral head is rotated but well situated within the acetabulum. With regards to medications, patient is on Eliquis, Quetiapine, Tylenol 650mg q6h, Gabapentin 300mg BID (not taking), Hydrocodone-APAP 7.5-325mg QID acute script #28 tabs (last written by Dr. Krishnamurthy). No benefit with Tramadol, Hydrocodone, Hydrocodone causing pruritis. Pt otherwise denies fevers, chills, weight loss, weakness, saddle anesthesia, bowel/bladder incontinence or retention. Pain Assessment: INTAKE PAIN ASSESSMENT 04/14/2021 04/29/2021 Are you having pain associated with your visit today? No No Compliance: PDMP website checked and validated. All prescriptions have been APPROPRIATELY filled. No suspicious activity was identified. 04/11/2022 by Eder Pal MD Risk Assessment: BERTA-7: No flowsheet data found.(0-4) minimal anxiety, (5-9) mild anxiety, (10-14) moderate anxiety, (15-21) severe anxiety PHQ-9: PHQ-9 12/14/2020 Score 0 (0-4) minimal depression, (5-9) mild depression, (10-14) moderate depression, (15-19) moderately severe depression, (20-27) severe depression Opioid Risk Tool: Family History of Substance Abuse: 0 - No Personal History of Substance Abuse: 0 - No Age between 16-45: 0 - No History of Pre-Adolescence Sexual Abuse: 0 - No Psychological Disease: 0 - No Risk Total: 0 Total Score Risk Category: Low Risk 0-3 (0-3, low risk or no risk; 4-7, moderate risk, 8+, high risk) Allergies: ALLERGIES ALLERGIES Allergen Reactions Meperidine Unknown, Vomiting CURRENT MEDICATIONS Current Outpatient Medications Medication Sig Dispense Refill insulin glargine (LANTUS SOLOSTAR U-100 INSULIN) 100 unit/mL (3 mL) Inject 18 Units subcutaneously daily at bedtime. 1 Pen 5 MEDICATION, NON-DATABASE Co q 10 b complex Calcium & vit d insulin lispro (HUMALOG KWIKPEN INSULIN) 100 unit/mL Inject 18 Units subcutaneously three times daily before meals. 16.2 mL 2 omeprazole (PRILOSEC) 40 mg capsule Take 1 capsule by mouth twice daily. 180 capsule 1 HYDROcodone-Acetaminophen (NORCO) 7.5-325 mg per tablet Take 1 tablet by mouth every 8 hours as needed for pain. 20 tablet 0 ELIQUIS 5 mg tab(s) TAKE 1 TABLET BY MOUTH EVERY DAY 30 tablet 3 metoprolol succinate ER (TOPROL XL) 50 mg 24 hr tablet Take 1 tablet by mouth once daily. 90 tablet 3 lisinopril (ZESTRIL, PRINIVIL) 20 mg tablet Take 1 tablet by mouth once daily. 90 tablet 11 QUEtiapine (SEROQUEL) 25 mg tablet TAKE 1/2 TABLET AT BEDTIME SCHEDULED, AND TAKE 1/2 TABLET DAILY NEEDED (Patient not taking: Reported on 01/27/2022 ) 90 tablet 1 ipratropium-albuterol (DUONEB) 0.5 mg-3 mg(2.5 mg base)/3 mL nebu USE 1 VIAL IN NEBULIZER 4 TIMES DAILY 120 mL 11 MV with Veb-Hbyypvsc-Fzyvnx (CENTRUM SILVER) 0.4-300-250 mg-mcg-mcg tab Centrum Silver Tablet Centrum Silver Tablet Active 1 TAB DAILY December 23, 2015 3:40pm 12-23-2015 [facility] ([id number]) acetaminophen (TYLENOL) 325 mg tablet Take by mouth every 6 hours as needed. docusate sodium (COLACE) 100 mg capsule Take by mouth. magnesium hydroxide (MOM) 400 mg/5 mL suspension Take by mouth as needed. PRODIGY LANCETS MISC four times daily. blood sugar diagnostic (PRODIGY NO CODING) test strip four times daily. citalopram (CELEXA) 40 mg tablet Take 40 mg by mouth q 24 HR. (Patient not taking: Reported on 01/27/2022 ) gabapentin (NEURONTIN) 300 mg capsule Take 300 mg by mouth twice daily. (Patient not taking: Reported on 04/14/2021) ibuprofen (MOTRIN) 800 mg tablet Take 800 mg by mouth every 8 hours as needed. (Patient not taking: Reported on 04/29/2021 ) No current facility-administered medications for this visit. PAST MEDICAL HISTORY 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 2 diabetes mellitus Dyspnea Edema of upper extremity Fatigue Female stress incontinence Generalized anxiety disorder GERD (gastroesophageal reflux disease) Hip joint painful on movement Insomnia Insulin-treated type 2 diabetes mellitus (HCC) Mixed hyperlipidemia Muscle weakness (generalized) Obesity (BMI 30-39.9) Poor short term memory Premature beats Superficial thrombophlebitis Type 2 diabetes mellitus without complication (HCC) Urinary tract infectious disease PAST SURGICAL HISTORY PAST SURGICAL HISTORY Procedure Laterality Date BLADDER SURGERY HX LIGATE FALLOPIAN TUBE REPAIR EPIGASTRIC HERNIA,REDUC REVISE MEDIAN N/CARPAL TUNNEL SURG TOTAL ABDOM HYSTERECTOMY 09/04/1983 Current Medications, Past Medical History, Past Surgical History, Family History & Social History: As per above and per nursing documentation reviewed on today's date (noted above) Review of Systems: Pertinent positives and negatives as per nursing note reviewed on today's date (noted above) Diagnostic Studies: Reviewed Personally on today's date MRI Spine Report No resulted procedures found. DATE PROCEDURE % OF IMPROVEMENT (DURATION) None Physical Exam: Vitals There were no vitals filed for this visit. Constitutional: well appearing Eyes: Conjunctiva clear. No discharge from eyes Cardiovascular: Appears well perfused Lymphatic: No visible regional lymphadenopathy Skin: No visible rashes or ecchymosis Psychiatric: Full affect, Alert, Pleasant Palpation: (-) Midline cervical thoracic/lumbosacral spine tenderness (+) Lumbosacral paraspinal muscle tenderness (-) SIJ tenderness (-) piriformis muscle tenderness (-) Greater trochanter tenderness bilaterally ROM: Lumbar spine: flexion, extension, side-bending, rotation all full and painless Manuevers: (-) SLR negative bilaterally (+) Facet loading (Varma's Test) bilaterally (-) Kadeem's/FABERs bilaterally (-) Kailey Finger Test to SIJ on two attempts Cervical spine: (-) Spurling's negative bilaterally (-) L'Hermitte's sign negative. ROM: Cervical spine: rotation, side-bending extension and flexion of cervical spine smooth and painless. Muscles: muscle spasm, trigger points, atrophy, fasciculation not appreciated 5/5 strength in all upper and lower extremity myotomes. Gait normal. Heel and toe gait normal. Neuro: Reflexes: DTRs 2+ in biceps, triceps, brachialis, patellar and achilles bilaterally. Reeves's and Babinski negative bilaterally. No clonus. Sensation: grossly intact to light touch, cold, pin prick; no presence of allodynia, hyperesthesia, hypoesthesia, hyperpathia Diagnoses: No diagnosis found. Impression: Margarita Betancourt is a 82 year old year-old female with Alzheimer's (diagnosed 2018), HTN, CVA, DVT on Eliquis, BERTA, GERD, T2DM, superficial thrombophlebitis, female stress incontinence, HL, s/p bilateral CTR, R eye blindness, s/p R hip fracture, s/p R TKR, s/p ORIF (2018) who presents regarding ongoing lower back, hip and ankle pain. Pt and patients family reports 1 year of progressively worsening bilateral lower back/buttock pain (referred to as hip pain as patient), with pain skipping the thighs, restarting in the calf, lateral ankle to the bilateral feet, largely over the toes worsened with standing >1min, walking >1min, flexion/extension. 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 MRI L-spine from 03/11/2017 shows:IMPRESSION: 1. Multilevel disc bulge with lumbar facet osteoarthritis. 2. Moderate canal stenosis at L3-L4 and L4-L5 secondary to disc bulge, ligamentum flavum hypertrophy and facet osteoarthritis. 3. L1 to left far lateral disc protrusion with severe left lateral recess and neural foraminal stenosis. 4. Large left renal exophytic cyst. Patient's history presentation imaging are concerning for multifactorial lower back pain including components of: lumbar spinal stenosis with neurogenic claudication vs lumbar facet arthropathy vs myofascial pain with palpable trigger points on exam. Concern further remains for IA hip pathology, however much of her pain is situated over her back and radiating down her legs. Plan was made to obtain a CT L-spine as well as updated XR L-spine, XR bilateral hip plain films to assess for any osseous or nerve root pathology which may be contributing to her symptoms. She would further benefit from TPI's to the bilateral lumbar paraspinal muscle groups for symptomatic relief. With regards to medications, pt has trialed Tylenol (no benefit) and cannot take NSAIDs due to concurrent use of Eliquis. With regards neuropathic, patient has trialed gabapentin (no benefit) as well as limited relief from topical Lidocaine. She has been maintained on hydrocodone 5 mg versus 7.5 mg as needed by her PCPs office, however this has been complicated by pruritus. While initiation of chronic opioid therapy is concerning in the setting of patient's known dementia and risk of sedation/falls, patient is unable to tolerate NSAIDs and neuropathic's have caused sedation/mental status changes for her as well. While she may benefit from we optimization of her neuropathic pain medication regimen, plan was made to trial low-dose oxycodone-APAP 2.5-325mg BID for symptomatic relief while she has access to nursing care through family and RN services. Will plan on readdressing response and to assess for side effects at the 1 month follow-up taniya due to patient's high risk of side effects while on this therapy. Plan: Margarita Betancourt would benefit from the following to reach personal goals for decreasing pain, improving function and work participation, and/or improving quality of life: Interventional Procedure(s): TPIs to the bilateral lumbar parspinal The risks, benefits, alternative treatment options and prognosis of the procedure were discussed and all of the patient's questions/concerns were addressed to the patient's satisfaction. The patient expressed understanding and gave verbal consent to proceed. Medication(s): - start low dose Oxycodone-APAP 2.5-325mg BID #60 tablets 0 refills - will readdress need for chronic opioid therapy after optimization of neuropathic regimen and imaging workup - consider restarting Gabapentin vs initiation of Lyrica Additional Studies: CT L-spine XR L-spine flex/ex XR bilateral hip Referrals: No additional considerations at present Functional Caodaism:No changes-continue current regimen Depending on response to the above-mentioned plan of care, in the future may consider evaluation for: consider ANGEL vs MBBs pending MRI L-spine and further imaging -Follow-up: after CT L-spine Attribution: In addition to reviewing the information noted above, some elements copied from my most recent clinical note(s), including the physical exam (completed in entirety today), and the impression and plan sections, have been updated where appropriate. All reflect current medical decision making from today's date (noted above). Eder Pal MD PhD Pain Management [facility] Review of Systems Constitutional: Negative for activity change, chills, fever and unexpected weight change. Gastrointestinal: Negative for bowel retention or incontinence Genitourinary: Negative for difficulty urinating. Negative for bladder retention or incontinence Musculoskeletal: Positive for arthralgias, back pain, gait problem and myalgias. Negative for joint swelling, neck pain and neck stiffness. Neurological: Positive for weakness. Negative for numbness and headaches. Psychiatric/Behavioral: Positive for dysphoric mood. Negative for sleep disturbance and suicidal ideas. The patient is nervous/anxious. documented in this encounter [facility] 02-11-2022 Miscellaneous Notes Judy - Can you please complete this. Thanks Please pend Please read the message below from the referral department: The following portal request was sent over: Portal ID: Margarita Betancourt : 1940 Part of our scheduling process requires verification of appropriate order in Epic prior to scheduling. The following discrepancy was noted while trying to verify the order: Discrepancy Noted: Referral specialty is for Pain Management w/the dx of Primary Hypertension. Epic order is for Pain Management w/the dx of Generalized arthritis. Please correct dx and resubmit. Thank you. Confirmation number: [id number] documented in this encounter [facility] 02-02-2022 Miscellaneous Notes Patients gautam Allison updated ----- Message from Noreen Grey sent at 01/28/2022 2:20 PM EDT ----- Regarding: [Specialty] / Jonn Krishnamurthy/ requesting refill for Lispro injection Analy pen-completely out Patient name: Margartia Betancourt : 1940, called to request a refill for his/her medication(s). Patient was advised that the refill should be called into the pharmacy. Patient advised they had already done so and over 24 hours has passed since doing so and they are following up: Y/N? y. Please contact the patient for additional information at [phone] (home) [phone] (work). Thank you, Noreen Matilda January 28, 2022 2:21 PM documented in this encounter [facility] 01-27-2022 History of Present illness Narrative Images from the original note were not included. [facility] [address] [place] [address] Date of Evaluation: 01/27/2022 Patient Name: Margarita Betancourt : 1940 Chief Complaint: Patient presents with: Diabetes Nursing Intake: There are no exam notes on file for this visit. Subjective Ms. Betancourt is a 81 year old female who presents with the following complaint(s): The history is provided by the patient. Diabetes She presents for her follow-up diabetic visit. She has type 2 diabetes mellitus. Pertinent negatives for hypoglycemia include no dizziness, headaches or nervousness/anxiousness. Pertinent negatives for diabetes include no chest pain, no fatigue and no weakness. Hypertension This is a chronic problem. The current episode started more than 1 year ago. Pertinent negatives include no chest pain, headaches, palpitations or shortness of breath. GERD She complains of heartburn. She reports no chest pain or no coughing. This is a chronic problem. Pertinent negatives include no fatigue. Hypercholesterolemia This is a chronic problem. The current episode started more than 1 year ago. Pertinent negatives include no chest pain or shortness of breath. Musculoskeletal Problem This is a chronic (Generalzied Arthritis ) problem. The problem occurs daily. The problem has been gradually worsening. Associated symptoms include arthralgias. Pertinent negatives include no chest pain, coughing, fatigue, headaches, numbness or weakness. Review of Systems Constitutional: Negative for fatigue and unexpected weight change. HENT: Negative for nosebleeds. Eyes: Negative for redness and visual disturbance. Respiratory: Negative for apnea, cough and shortness of breath. Cardiovascular: Negative for chest pain, palpitations and leg swelling. Gastrointestinal: Positive for heartburn. Genitourinary: Negative for hematuria. Musculoskeletal: Positive for arthralgias. Neurological: Negative for dizziness, weakness, light-headedness, numbness and headaches. Hematological: Does not bruise/bleed easily. Psychiatric/Behavioral: The patient is not nervous/anxious. 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 2 diabetes mellitus Dyspnea Edema of upper extremity Fatigue Female stress incontinence Generalized anxiety disorder GERD (gastroesophageal reflux disease) Hip joint painful on movement Insomnia Insulin-treated type 2 diabetes mellitus (HCC) Mixed hyperlipidemia Muscle weakness (generalized) Obesity (BMI 30-39.9) Poor short term memory Premature beats Superficial thrombophlebitis Type 2 diabetes mellitus without complication (HCC) Urinary tract infectious disease PAST SURGICAL HISTORY Procedure Laterality Date BLADDER SURGERY HX LIGATE FALLOPIAN TUBE REPAIR EPIGASTRIC HERNIA,REDUC REVISE MEDIAN N/CARPAL TUNNEL SURG TOTAL ABDOM HYSTERECTOMY 09/04/1983 FAMILY HISTORY Problem Relation Age of Onset Colon Cancer Brother other (myocardial infarction) Brother Social History Tobacco Use Smoking status: Never Smoker Smokeless tobacco: Never Used Vaping Use Vaping Use: Never used Substance Use Topics Alcohol use: Never Drug use: Not on file Current Medications MEDICATION, NON-DATABASE Co q 10 b complexCalcium & vit d insulin glargine (LANTUS SOLOSTAR U-100 INSULIN) 100 unit/mL (3 mL) Inject 18 Units subcutaneously daily at bedtime. insulin lispro (HUMALOG KWIKPEN INSULIN) 100 unit/mL Inject 18 Units subcutaneously three times daily before meals. omeprazole (PRILOSEC) 40 mg capsule Take 1 capsule by mouth twice daily. HYDROcodone-Acetaminophen (NORCO) 7.5-325 mg per tablet Take 1 tablet by mouth every 8 hours as needed for pain. ELIQUIS 5 mg tab(s) TAKE 1 TABLET BY MOUTH EVERY DAY metoprolol succinate ER (TOPROL XL) 50 mg 24 hr tablet Take 1 tablet by mouth once daily. lisinopril (ZESTRIL, PRINIVIL) 20 mg tablet Take 1 tablet by mouth once daily. ipratropium-albuterol (DUONEB) 0.5 mg-3 mg(2.5 mg base)/3 mL nebu USE 1 VIAL IN NEBULIZER 4 TIMES DAILY MV with Wwp-Wmodksbx-Gootsi (CENTRUM SILVER) 0.4-300-250 mg-mcg-mcg tab Centrum Silver Tablet Centrum Silver Tablet Active 1 TAB DAILY December 23, 2015 3:40pm 12-23-2015 [facility] ([id number]) acetaminophen (TYLENOL) 325 mg tablet Take by mouth every 6 hours as needed. docusate sodium (COLACE) 100 mg capsule Take by mouth. magnesium hydroxide (MOM) 400 mg/5 mL suspension Take by mouth as needed. PRODIGY LANCETS MISC four times daily. blood sugar diagnostic (PRODIGY NO CODING) test strip four times daily. HYDROcodone-acetaminophen (NORCO) 5-325 mg per tablet Take 1 tablet by mouth every 6 hours as needed for pain for up to 7 days. HYDROcodone-Acetaminophen (NORCO) 7.5-325 mg per tablet Take 1 tablet by mouth every 8 hours as needed for pain for up to 28 doses. QUEtiapine (SEROQUEL) 25 mg tablet TAKE 1/2 TABLET AT BEDTIME SCHEDULED, AND TAKE 1/2 TABLET DAILY NEEDED citalopram (CELEXA) 40 mg tablet Take 40 mg by mouth q 24 HR. gabapentin (NEURONTIN) 300 mg capsule Take 300 mg by mouth twice daily. ibuprofen (MOTRIN) 800 mg tablet Take 800 mg by mouth every 8 hours as needed. I have confirmed and edited as necessary the past medical, family and social histories, HPI, and ROS obtained by others. Objective BP 100/70 Pulse 67 Temp 97.5 Ht 5' 2 (1.58m) Wt 170 lb (77.1kg) SpO2 95% BMI 31.09 kg/(m^2). Physical Exam Vitals and nursing note reviewed. Constitutional: General: She is not in acute distress. Appearance: Normal appearance. She is well-developed. She is not ill-appearing. HENT: Head: Normocephalic. Right Ear: Tympanic membrane, ear canal and external ear normal. There is no impacted cerumen. Left Ear: Tympanic membrane, ear canal and external ear normal. There is no impacted cerumen. Nose: Nose normal. Mouth/Throat: Mouth: Mucous membranes are moist. Pharynx: Oropharynx is clear. Uvula midline. No oropharyngeal exudate or posterior oropharyngeal erythema. Eyes: General: Lids are normal. Vision grossly intact. Gaze aligned appropriately. No scleral icterus. Right eye: No discharge. Left eye: No discharge. Extraocular Movements: Extraocular movements intact. Conjunctiva/sclera: Conjunctivae normal. Pupils: Pupils are equal, round, and reactive to light. Neck: Thyroid: No thyroid mass, thyromegaly or thyroid tenderness. Vascular: No carotid bruit. Trachea: Trachea and phonation normal. Cardiovascular: Rate and Rhythm: Normal rate and regular rhythm. Pulses: Normal pulses. Heart sounds: Normal heart sounds. Pulmonary: Effort: Pulmonary effort is normal. Breath sounds: Normal breath sounds. Abdominal: General: Abdomen is flat. Bowel sounds are normal. Palpations: Abdomen is soft. Musculoskeletal: General: Normal range of motion. Right shoulder: Normal. Left shoulder: Normal. Cervical back: Normal, full passive range of motion without pain and neck supple. No tenderness. No spinous process tenderness. Thoracic back: Normal. Lumbar back: Normal. Right knee: Normal. Left knee: Normal. Right lower leg: No edema. Left lower leg: No edema. Lymphadenopathy: Cervical: No cervical adenopathy. Skin: General: Skin is warm and dry. Neurological: General: No focal deficit present. Mental Status: She is alert and oriented to person, place, and time. Mental status is at baseline. Cranial Nerves: Cranial nerves are intact. Sensory: Sensation is intact. Motor: Motor function is intact. Psychiatric: Attention and Perception: Attention and perception normal. Mood and Affect: Mood normal. Speech: Speech normal. Behavior: Behavior normal. Thought Content: Thought content normal. Judgment: Judgment normal. Data Reviewed: No new labs ASSESSMENT/PLAN: 1. Primary hypertension - ICD9: 401.9, ICD10: I10 (primary diagnosis) - good control - Continue current medication(s) - Recommended regular aerobic exercise. - Recommend home blood pressure monitoring, to bring results in on next visit - Goal of BP <130/80 2. Insulin-treated type 2 diabetes mellitus (HCC) - ICD9: 250.00, V58.67, ICD10: E11.9, Z79.4 - a1C was 8.2% - continue current medications - LANTUS SOLOSTAR U-100 INSULIN 100 UNIT/ML (3 ML) SUBCUTANEOUS PEN - INSULIN LISPRO (U-100) 100 UNIT/ML SUBCUTANEOUS PEN - HEMOGLOBIN A1C (POC) 3. Gastro-esophageal reflux disease without esophagitis - ICD9: 530.81, ICD10: K21.9 - Continue current medication. - OMEPRAZOLE 40 MG CAPSULE,DELAYED RELEASE 4. Generalized arthritis - ICD9: 716.90, ICD10: M19.90 - Start Hydrocodone as needed for pain - Refer to pain MGT for further management of medication. - HYDROCODONE 5 MG-ACETAMINOPHEN 325 MG TABLET - CONSULT TO PAIN MGT 5. Hyperlipidemia, mixed - ICD9: 272.2, ICD10: E78.2 - to be determined upon return of lab results loss. - Check fasting lipid panel and ALT. - CBC + DIFF - COMP METABOLIC PANEL - LIPID PANEL BASIC - URINALYSIS, WITH MICROSCOPIC 6. Recurrent UTI (urinary tract infection) - ICD9: 599.0, ICD10: N39.0 - Chronic 7. Screening for thyroid disorder - ICD9: V77.0, ICD10: Z13.29 - TSH BLD Jonn Krishnamurthy DO Return in about 3 months (around 04/29/2022) for medication follow up, a1c. Attestation: Scribe Statement: I Judy Grant am scribing for, and in the presence of, Jonn Krishnamurthy DO January 27, 2022 4:40 PM. Physician Statement: I, Jonn Krishnamurthy DO, personally performed the services described in the documentation, as scribed by Judy Grant in my presence, and it is both accurate and complete January 27, 2022 4:47 PM. documented in this encounter [facility] 01-17-2022 Miscellaneous Notes norco sent Pt has an appt on 01/27/22 to refill pain meds. Pt's caregiver Estefany has been giving Pluma Aleve with no relief. Is there anything else pt can try to help with the pain until she is seen? Alexandria Addison ----- Message from Lorna Lopez sent at 01/11/2022 1:53 PM EDT ----- Regarding: Medicine/[place]/Medication Refill Subject Line Format: Medicine / [Provider Name] / [Issue] Patient has been identified by name and Date of (Y/N): Y Patient: Margarita Betancourt Date of : 1940 Provider for this encounter: Jonn Krishnamurthy DO Reason for the call/escalation: Patient is out of pain medication for hip pain. Patient has annual visit scheduled for 01/27/22. Patient's daughter also stated fatty tissue lump on ankle is swollen to the point where patient can no longer put on a shoe. Daughter would like to know if refills can be prescribed. Was Patient Referred to [facility]/Seek Emergency Treatment (Y/N): N Did Patient Agree (Y/N): na Was An Attempt Made To Transfer The Patient To The Office (Y/N): N Were You Able To Reach Someone At The Office (Y/N): na If Yes - Patient Was Transferred To (Caregivers Name): na If No - Which [facility] Leadership Finisher Map And Chart Did You Speak With Regarding This Patient: na Was an appointment scheduled (Y/N): Y Reason patient was requesting visit (RFV/signs and symptoms/diagnosis) : Medication refill Person calling if other than patient: Patient Return call to if other than patient: na Best contact number: [phone] Thank you, Lorna Lopez January 11, 2022 1:53 PM documented in this encounter [facility] 11-02-2021 Miscellaneous Notes Pharmacy faxed requesting the following refill Refill(s) Requested: Pending Prescriptions Disp Refills ELIQUIS 5 MG TABLET 30 tablet 3 Sig: TAKE 1 TABLET BY MOUTH EVERY DAY JESUS: Yes ALLERGIES Allergen Reactions Meperidine Unknown, Vomiting (home) [phone] (work) Last Office Visit Date: 04/29/2021 Last [facility] Visit: Visit date not found Future Appointment: Visit date not found The patients preferred pharmacy has been captured for this encounter? yes Request is for script(s) to be escript to pharmacy. Nani Koo LPN documented in this encounter [facility] 10-08-2021 Miscellaneous Notes Pt needs refills of: Lantus 18 units at bedtime Humalog 18 units daily Please send to [facility] in [place] Pt is out of these. Pt also needs: Lisinopril 20mg 1 daily Omeprazole 40mg 40mg twice daily Metoprolol 50mg twice daily Eliquis 5mg daily Oxycodone 5/325mg Please send to [facility] in [place] Add[place] documented in this encounter [facility] 08-04-2021 Miscellaneous Notes On 05/17/21 1 months worth with 11 refills was sent in E-Prescribing Status: Receipt confirmed by pharmacy (05/17/2021 1:20 PM EDT) documented in this encounter [facility] Evaluation note Diagnosis Chronic midline low back pain without sciatica- Primary [facility] Primary hypertension- Primary Unspecified essential hypertension Insulin-treated type 2 diabetes mellitus (HCC) Gastro-esophageal reflux disease without esophagitis Esophageal reflux Generalized arthritis Hyperlipidemia, mixed Mixed hyperlipidemia Recurrent UTI (urinary tract infection) Urinary tract infection, site not specified Screening for thyroid disorder [facility] Essential (primary) hypertension Unspecified essential hypertension Gastro-esophageal reflux disease without esophagitis Esophageal reflux Insulin-treated type 2 diabetes mellitus (HCC) Arthritis of knee Unspecified arthropathy, lower leg [facility] Primary osteoarthritis of both hips- Primary Primary localized osteoarthrosis, pelvic region and thigh Lumbar spondylosis Lumbosacral spondylosis without myelopathy Spinal stenosis, lumbar region with neurogenic claudication Spinal stenosis of lumbar region with neurogenic claudication Spinal stenosis, lumbar region, with neurogenic claudication Myofascial pain Mylagia and myositis, unspecified [facility] Diagnosis Insulin-treated type 2 diabetes mellitus (HCC) [facility] Diagnosis Primary osteoarthritis of right knee- Primary Primary localized osteoarthrosis, lower leg Primary osteoarthritis of both hips Primary localized osteoarthrosis, pelvic region and thigh Lumbar spondylosis Lumbosacral spondylosis without myelopathy Spinal stenosis, lumbar region with neurogenic claudication Spinal stenosis of lumbar region with neurogenic claudication Spinal stenosis, lumbar region, with neurogenic claudication [facility] Diagnosis Primary osteoarthritis of both hips- Primary Primary localized osteoarthrosis, pelvic region and thigh Lumbar spondylosis Lumbosacral spondylosis without myelopathy Primary osteoarthritis of right knee Primary localized osteoarthrosis, lower leg Myofascial pain Mylagia and myositis, unspecified Encounter for long-term (current) use of medications Encounter for long-term (current) use of other medications Spinal stenosis, lumbar region with neurogenic claudication Spinal stenosis of lumbar region with neurogenic claudication Spinal stenosis, lumbar region, with neurogenic claudication [facility] Diagnosis Gastro-esophageal reflux disease without esophagitis Esophageal reflux [facility] Diagnosis Gastro-esophageal reflux disease without esophagitis Esophageal reflux [facility] Diagnosis Primary osteoarthritis of both hips Primary localized osteoarthrosis, pelvic region and thigh Lumbar spondylosis Lumbosacral spondylosis without myelopathy Primary osteoarthritis of right knee Primary localized osteoarthrosis, lower leg [facility]* Diagnosis Essential (primary) hypertension Unspecified essential hypertension Insulin-treated type 2 diabetes mellitus (HCC) [facility]* Diagnosis Lumbar spondylosis- Primary Lumbosacral spondylosis without myelopathy Primary osteoarthritis of both hips Primary localized osteoarthrosis, pelvic region and thigh Encounter for long-term (current) use of medications Encounter for long-term (current) use of other medications [facility] Diagnosis Gastro-esophageal reflux disease without esophagitis Esophageal reflux [facility]* Diagnosis NO SHOW- Primary [facility]* Diagnosis Gastro-esophageal reflux disease without esophagitis Esophageal reflux [facility]* Diagnosis Primary hypertension- Primary Unspecified essential hypertension Hyperlipidemia, mixed Mixed hyperlipidemia Lumbar spondylolysis Acquired spondylolisthesis Primary osteoarthritis of both hips Primary localized osteoarthrosis, pelvic region and thigh Lumbar spondylosis Lumbosacral spondylosis without myelopathy Primary osteoarthritis of right knee Primary localized osteoarthrosis, lower leg documented in this encounter [facility] note* Diagnosis Gastro-esophageal reflux disease without esophagitis Esophageal reflux documented in this encounter [facility] note* Diagnosis Acute UTI- Primary Urinary tract infection, site not specified Urinary frequency Insulin-treated type 2 diabetes mellitus (HCC) Hyperlipidemia, mixed Mixed hyperlipidemia Other hemorrhoids Rectal bleeding Hemorrhage of rectum and anus Primary osteoarthritis of both hips Primary localized osteoarthrosis, pelvic region and thigh Lumbar spondylosis Lumbosacral spondylosis without myelopathy Screening for thyroid disorder Obesity, Class I, BMI 30-34.9 Obesity, unspecified Primary osteoarthritis of right knee Primary localized osteoarthrosis, lower leg documented in this encounter [facility] note* Diagnosis Insulin-treated type 2 diabetes mellitus (HCC)- Primary Nausea and vomiting, unspecified vomiting type Primary hypertension Unspecified essential hypertension Diabetic gastroparesis (HCC) (HCC) Type II or unspecified type diabetes mellitus with neurological manifestations, not stated as uncontrolled Chronic insomnia Insomnia, unspecified Class 1 obesity with body mass index (BMI) of 32.0 to 32.9 in adult, unspecified obesity type, unspecified whether serious comorbidity present Chronic pain of right ankle Arthritis of both hips Primary osteoarthritis of both hips Primary localized osteoarthrosis, pelvic region and thigh Lumbar spondylosis Lumbosacral spondylosis without myelopathy Primary osteoarthritis of right knee Primary localized osteoarthrosis, lower leg documented in this encounter [facility] note* Diagnosis Insulin-treated type 2 diabetes mellitus (HCC) documented in this encounter [facility] note* Diagnosis Primary hypertension- Primary Unspecified essential hypertension Insulin-treated type 2 diabetes mellitus (HCC) Primary osteoarthritis of both hips Primary localized osteoarthrosis, pelvic region and thigh Recurrent falls Personal history of fall Spinal stenosis of lumbar region without neurogenic claudication Spinal stenosis, lumbar region, without neurogenic claudication Lumbar spondylosis Lumbosacral spondylosis without myelopathy 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) Overweight with body mass index (BMI) of 29 to 29.9 in adult documented in this encounter [facility] note* Diagnosis Lumbar spondylosis Lumbosacral spondylosis without myelopathy Cervical spinal stenosis Spinal stenosis in cervical region [facility] Diagnosis Spinal stenosis of cervical region- Primary Spinal stenosis in cervical region [facility]* Diagnosis Lumbar spondylosis Lumbosacral spondylosis without myelopathy Spinal stenosis of lumbar region without neurogenic claudication Spinal stenosis, lumbar region, without neurogenic claudication [facility]* Diagnosis Essential (primary) hypertension- Primary Unspecified essential hypertension Insulin-treated type 2 diabetes mellitus (HCC) Gastro-esophageal reflux disease without esophagitis Esophageal reflux Hyperlipidemia, mixed Mixed hyperlipidemia 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) Other depression Chronic pain syndrome Spinal stenosis of lumbar region without neurogenic claudication Spinal stenosis, lumbar region, without neurogenic claudication Decreased appetite Anorexia Bilateral hip pain Pain in joint, pelvic region and thigh Chronic midline low back pain without sciatica Overweight with body mass index (BMI) of 29 to 29.9 in adult [facility]* Diagnosis Essential (primary) hypertension- Primary Unspecified essential hypertension Nausea and vomiting, unspecified vomiting type Urinary frequency 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) Spinal stenosis of cervical region Spinal stenosis in cervical region Spinal stenosis of lumbar region without neurogenic claudication Spinal stenosis, lumbar region, without neurogenic claudication Overweight with body mass index (BMI) of 29 to 29.9 in adult [facility] Diagnosis Spinal stenosis of cervical region Spinal stenosis in cervical region [facility] Diagnosis Acute midline low back pain without sciatica- Primary [facility]* Diagnosis Other depression Decreased appetite Anorexia [facility]* Diagnosis Acute midline low back pain without sciatica- Primary [facility]* Diagnosis Essential (primary) hypertension Unspecified essential hypertension Nausea and vomiting, unspecified vomiting type Acute midline low back pain without sciatica [facility] Diagnosis Acute midline low back pain without sciatica [facility] Diagnosis Other depression Decreased appetite Anorexia Nausea and vomiting, unspecified vomiting type Acute midline low back pain without sciatica [facility]* Diagnosis Confusion- Primary Unspecified psychosis Confusion Unspecified psychosis Gastrointestinal hemorrhage, unspecified gastrointestinal hemorrhage type documented in this encounter [facility]* Diagnosis Primary osteoarthritis of both hips- Primary Primary localized osteoarthrosis, pelvic region and thigh documented in this encounter [facility] note* Diagnosis Primary osteoarthritis of both hips- Primary Primary localized osteoarthrosis, pelvic region and thigh documented in this encounter [facility] note* Diagnosis Osteoarthritis, unspecified osteoarthritis type, unspecified site- Primary 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) Insulin-treated type 2 diabetes mellitus (HCC) Nausea and vomiting, unspecified vomiting type documented in this encounter [facility] Plan of care note* Visit Details Visit Type -SN SOC Discipline -Fpc Problems Problem Description Start Date Status Goals Interve ntions Medication Education Disciplines: Skilled Services 12/06/2024 Active 1 goal linked to scheduled/documen scooter intervention 1 goal intervention scheduled/document ed in this visit Sepsis Disciplines: Skilled Services 12/06/2024 Active 1 goal linked to scheduled/documen scooter intervention 1 goal intervention scheduled/document ed in this visit Risk for skin breakdown Disciplines: Skilled Services 12/06/2024 Active 1 goal linked to scheduled/documen scooter intervention 1 goal intervention scheduled/document ed in this visit Physician Specific Parameters Disciplines: Skilled Services 12/06/2024 Active 1 goal linked to scheduled/documen scooter intervention 1 goal intervention scheduled/document ed in this visit Risk for Falls Disciplines: Skilled Services 12/06/2024 Active 1 goal linked to scheduled/documen scooter intervention 1 goal intervention scheduled/document ed in this visit Pain Disciplines: Skilled Services 12/06/2024 Active 1 goal linked to scheduled/documen scooter intervention 1 goal intervention scheduled/document ed in this visit Diabetic Foot Care Disciplines: Skilled Services 12/06/2024 Active 1 goal linked to scheduled/documen scooter intervention 1 goal intervention scheduled/document ed in this visit Nutrition/Hydration Disciplines: Skilled Services 12/06/2024 Active 1 goal linked to scheduled/documen scooter intervention 1 goal intervention scheduled/document ed in this visit High Risk Medications Disciplines: Skilled Services 12/06/2024 Active 1 goal linked to scheduled/documen scooter intervention 2 goal interventions scheduled/document ed in this visit Discharge Disciplines: Skilled Services 12/06/2024 Active 1 goal linked to scheduled/documen scooter intervention 2 goal interventions scheduled/document ed in this visit SN Diabetes Disciplines: 12/06/2024 Active 1 goal linked to scheduled/documen scooter intervention 1 goal intervention scheduled/document ed in this visit SN Cardiovascular Condition Disciplines: 12/06/2024 Active 1 goal linked to scheduled/documen scooter intervention 1 goal intervention scheduled/document ed in this visit SN Learning Assessment Disciplines: 12/06/2024 Active 1 goal linked to scheduled/documen scooter intervention 1 goal intervention scheduled/document ed in this visit SN Genitourinary disease process Disciplines: 12/06/2024 Active 1 goal linked to scheduled/documen scooter intervention 1 goal intervention scheduled/document ed in this visit SN Gastrointestinal Disciplines: 12/06/2024 Active 1 goal linked to scheduled/documen scooter intervention 1 goal intervention scheduled/document ed in this visit Goals Goal Associated Problem Outcome Goal Met? Visit Notes Patient/caregiver will demonstrate ability to obtain, store, identify and administer ordered medications, keep accurate medication list in home, and adhere to medication schedule Description: Patient/caregiver will demonstrate ability to obtain, store, identify and administer ordered medications, keep accurate medication list in home, and adhere to medication schedule by 02/03/25. Medication Education No Patient/caregiver will be able to identify and report symptoms of sepsis Description: Patient/caregiver will be able to identify signs/symptoms of sepsis infection and will verbalize actions to take if suspected by 02/03/25. Sepsis No Manage risk for skin breakdown Description: Patient/caregiver will verbalize and demonstrate understanding of the risks and measures to be taken to monitor and prevent skin breakdown by 02/03/25. Risk for skin breakdown No Patient to maintain parameters within physician-specified ranges throughout certification period Physician Specific Parameters No Manage Risk for falls Description: Patient/caregiver will verbalize knowledge of individualized fall prevention strategies by 02/03/25. Risk for Falls No Manage Pain Description: Patient/caregiver will verbalize knowledge and understanding of appropriate techniques to control pain, including non-pharmacological techniques. Patient will verbalize or demonstrate an acceptable level of pain as evidenced by a pain score of 0/10 and improvement in ability to perform activities of daily living to be achieved by 02/03/25. Pain No Manage diabetic foot care Description: Patient/caregiver will demonstrate basic understanding of and compliance with diabetic self-care management as evidenced by verbalizing purpose of daily foot care and assessment by 02/03/25. Diabetic Foot Care No Manage Nutrition/Hydration Description: Patient/caregiver will verbalize/demonstrate knowledge of prescribed diet and/or healthy nutrition to be achieved by 02/03/25. Nutrition/Hydration No Patient/caregiver will teach back high risk medication side effect and precaution education Description: STG Patient/caregiver will verbalize understanding of high risk medication side effects and precautions to be achieved by 02/03/25. LTG Patient/caregiver will continue to verbalize understanding of high risk medication side effects and precautions throughout certification period. High Risk Medications No Manage discharge planning Description: Patient/caregiver will verbalize understanding of ongoing discharge plan provided related to disease management, arrangements for outpatient and/or community services, obtaining medications, supplies, and DME, as needed throughout certification period. Discharge No Improved management of diabetes Description: Improve diabetic management as evidenced by patient/caregiver able to teach back diabetic management strategies by 12/25/24. SN Diabetes No Improved management of cardiovascular disease Description: Improve patient/caregiver management of cardiac disease as evidenced by patient/caregiver ability to teach back cardiac management strategies by 12/25/24. SN Cardiovascular Condition No Demonstrate understanding of education Description: Patient and/or caregiver will verbalize understanding of educational instruction provided throughout certification period. SN Learning Assessment No Patient/Caregiver will verbalize understanding and demonstrate improved management of genitourinary disease/condition. Description: Patient/Caregiver will state understanding of genitourinary disease/condition and be able to teach back management strategies by 12/25/24. SN Genitourinary disease process No Improved management of GI disease/condition Description: Patient/Caregiver will demonstrate understanding of GI education as evidenced by improved management of gastrointestinal disease/condition by 12/25/24. SN Gastrointestinal No Interventions Intervention Associated Problem/Goal Status Variance Visit Notes Medication Education Description: Evaluate/instruct patient/caregiver on obtaining, storing, identifying and administering ordered medications as well as keeping accurate medication list in the home and adhereing to medication schedule Problem:Medication Education Goal:Patient/caregiver will demonstrate ability to obtain, store, identify and administer ordered medications, keep accurate medication list in home, and adhere to medication schedule Completed Patient and Caregiver instructed on importance of keeping accurate medication list in home, adhering to medication schedule and Medication, route, dose, frequency, purpose, and side effects of all medications. Risk of Sepsis Description: Patient is at risk for sepsis. Monitor closely for s/s of sepsis. Problem:Sepsis Goal:Patient/caregiver will be able to identify and report symptoms of sepsis Completed Instruct on the risks and measures to be taken to prevent skin breakdown Description: Patient's Trey Score is: 15. A Trey score <= to 18 indicates risk for skin breakdown. Problem:Risk for skin breakdown Goal:Manage risk for skin breakdown Completed caregiver instructed on maintaining skin integrity including: The need for every 1-2 hour turns, position changes, and maintaining activity as tolerated, Incontinence care, Routine skin care and Notifying [facility] clinician of changes to skin integrity SPO2 Description: Notify Dr. Krishnamurthy if pulse ox is <92% at rest. Problem:Physician Specific Parameters Goal:Patient to maintain parameters within physician-specified ranges throughout certification period Completed Instruct on individual fall risk factors and strategies to prevent falls and injuries caused by falls. Problem:Risk for Falls Goal:Manage Risk for falls Completed SN: Patient and Caregiver instructed on Eliminating Environmental Hazards: Keep pathways clear, Keep pets out of pathways, Remove unsafe rugs, Move furniture from pathways and Keep rooms and walkways well lit Managing Cognitive Impairment/Depression: Recommended use of visual cues/reminders for safety Instruct on pain and instruct on strategies to control pain Problem:Pain Goal:Manage Pain Completed pt denies c/o pain Monitor lower extremities for skin lesions and educate on proper foot care Problem:Diabetic Foot Care Goal:Manage diabetic foot care Completed caregiver instructed on diabetic foot care including daily skin inspection and wearing proper footwear/avoiding going barefoot. Define patient s appetite/hydration status and implement strategies to improve compliance with prescribed diet and/or healthy nutrition. Problem:Nutrition/Hydr ation Goal:Manage Nutrition/Hydration Completed instructed patient and caregiver on implementing strategies to comply with prescribed diet, healthy nutrition and adequate hydration Hypoglycemic (including insulin)- educated on high risk medication Problem:High Risk Medications Goal:Patient/caregiver will teach back high risk medication side effect and precaution education Completed caregiver educated on taking medication(s) as prescribed by provider. Do not stop medication or skip/alter doses without speaking with your provider. Discuss medication effectiveness or side effect concerns with your provider and home care team. Check blood sugars and keep log as ordered by provider. Monitor for side effects of hypoglycemia such as increased weakness or shaking, moist skin, sweating, fast heartbeat, dizziness, sudden hunger, confusion, pale skin, numbness in mouth or tongue, irritability, nervousness, unsteadiness, nightmares, bad dreams, and restless sleep. Checking your blood sugar routinely and eating a consistent diabetic diet can help regulate blood sugars and reduce side effects. Anticoagulant- educated on high risk medication Problem:High Risk Medications Goal:Patient/caregiver will teach back high risk medication side effect and precaution education Completed patient and caregiver educated on anticoagulant medication eliquis Take your medication as instructed and at the same time each day. Do not stop medication or alter doses without speaking with your provider. Discuss medication effectiveness or side effect concerns with your provider and home care team. Discuss all medications you are taking, even [id number] medicines, with your provider and pharmacist since many drugs can interact with anticoagulants. Tell anyone providing medical or dental care that you are taking an anticoagulant. DO NOT STOP your medication even for a minor procedure like dental work without first checking with the provider. If you forget to take a dose, DO NOT take a double dose. Take the missed dose as soon as possible on the same day. DO NOT take a double dose the next day to make up for the missed dose. Watch for signs of abnormal or excessive bleeding and bruising (refer to Bleeding Precautions education). Call your health care provider right away if you suspect something is wrong. Instruct on ongoing discharge plan Problem:Discharge Goal:Manage discharge planning Completed Ongoing Discharge plan: Discharge plan discussed with caregiver including frequency and duration for home SN and plan for transition to: live independently at home without ongoing services. Instruct on importance of follow-up appts and continued monitoring with medical provider &/or chronic care clinic Problem:Discharge Goal:Manage discharge planning Completed Education provided on importance of compliance with follow-up appointment(s). Recommendations: None Instruct on diabetes disease process and management of chronic condition Description: Patient has needs for education of diabetes. Problem:SN Diabetes Goal:Improved management of diabetes Completed caregiver assessed and instructed on recogonizing s/s of hypoglycemia and hyperglycemia as found in the diabetes self-care booklets. Instruct on cardiovascular disease process and management of condition Description: Patient has following cardiac diagnosis(es): Hypertension. Problem:SN Cardiovascular Condition Goal:Improved management of cardiovascular disease Completed caregiver instructed on self monitoring & symptom reporting. Instruct and educate on knowledge deficits Problem:SN Learning Assessment Goal:Demonstrate understanding of education Completed patient and caregiver verbalize and/or demonstrate understanding of nursing education completed today. Education methods include: verbal cues and teach back. Further education required to improve knowledge and compliance with cardiac disease management, diabetic care management, fall prevention/home safety strategies, gastrointestinal care management, genitourinary care management, medication management, nutrition and pain management. Incontinence- Instruct Patient/Caregiver on measures to manage urinary incontinence Problem:SN Genitourinary disease process Goal:Patient/Caregiver will verbalize understanding and demonstrate improved management of genitourinary disease/condition. Completed caregiver instructed on measures to manage Urinary incontinence including: use of pads/protective garments. Incontinence: Instruct Patient/Caregiver on measures to manage bowel incontinence Problem:SN Gastrointestinal Goal:Improved management of GI disease/condition Completed caregiver instructed on the following measures to manage bowel incontinence: use of incontinence pads/briefs. documented in this encounter [facility] Plan of care note* Visit Details Visit Type -SN ROUTINE Discipline -Fpc Problems Problem Description Start Date Status Goals Interve ntions Medication Education Disciplines: Skilled Services 12/06/2024 Active 1 goal linked to scheduled/documen scooter intervention 1 goal intervention scheduled/document ed in this visit Sepsis Disciplines: Skilled Services 12/06/2024 Active 1 goal linked to scheduled/documen scooter intervention 1 goal intervention scheduled/document ed in this visit Risk for skin breakdown Disciplines: Skilled Services 12/06/2024 Active 1 goal linked to scheduled/documen scooter intervention 1 goal intervention scheduled/document ed in this visit Physician Specific Parameters Disciplines: Skilled Services 12/06/2024 Active 1 goal linked to scheduled/documen scooter intervention 1 goal intervention scheduled/document ed in this visit Risk for Falls Disciplines: Skilled Services 12/06/2024 Active 1 goal linked to scheduled/documen scooter intervention 1 goal intervention scheduled/document ed in this visit Pain Disciplines: Skilled Services 12/06/2024 Active 1 goal linked to scheduled/documen scooter intervention 1 goal intervention scheduled/document ed in this visit Diabetic Foot Care Disciplines: Skilled Services 12/06/2024 Active 1 goal linked to scheduled/documen scooter intervention 1 goal intervention scheduled/document ed in this visit Nutrition/Hydration Disciplines: Skilled Services 12/06/2024 Active 1 goal linked to scheduled/documen scooter intervention 1 goal intervention scheduled/document ed in this visit High Risk Medications Disciplines: Skilled Services 12/06/2024 Active 1 goal linked to scheduled/documen scooter intervention 2 goal interventions scheduled/document ed in this visit Discharge Disciplines: Skilled Services 12/06/2024 Active 1 goal linked to scheduled/documen scooter intervention 2 goal interventions scheduled/document ed in this visit SN Diabetes Disciplines: SN 12/06/2024 Active 1 goal linked to scheduled/documen scooter intervention 2 goal interventions scheduled/document ed in this visit SN Cardiovascular Condition Disciplines: SN 12/06/2024 Active 1 goal linked to scheduled/documen scooter intervention 1 goal intervention scheduled/document ed in this visit SN Learning Assessment Disciplines: 12/06/2024 Active 1 goal linked to scheduled/documen scooter intervention 1 goal intervention scheduled/document ed in this visit SN Genitourinary disease process Disciplines: SN 12/06/2024 Active 1 goal linked to scheduled/documen scooter intervention 1 goal intervention scheduled/document ed in this visit SN Gastrointestinal Disciplines: 12/06/2024 Active 1 goal linked to scheduled/documen scooter intervention 1 goal intervention scheduled/document ed in this visit Goals Goal Associated Problem Outcome Goal Met? Visit Notes Patient/caregiver will demonstrate ability to obtain, store, identify and administer ordered medications, keep accurate medication list in home, and adhere to medication schedule Description: Patient/caregiver will demonstrate ability to obtain, store, identify and administer ordered medications, keep accurate medication list in home, and adhere to medication schedule by 02/03/25. Medication Education No Patient/caregiver will be able to identify and report symptoms of sepsis Description: Patient/caregiver will be able to identify signs/symptoms of sepsis infection and will verbalize actions to take if suspected by 02/03/25. Sepsis No Manage risk for skin breakdown Description: Patient/caregiver will verbalize and demonstrate understanding of the risks and measures to be taken to monitor and prevent skin breakdown by 02/03/25. Risk for skin breakdown No Patient to maintain parameters within physician-specified ranges throughout certification period Physician Specific Parameters No Manage Risk for falls Description: Patient/caregiver will verbalize knowledge of individualized fall prevention strategies by 02/03/25. Risk for Falls No Manage Pain Description: Patient/caregiver will verbalize knowledge and understanding of appropriate techniques to control pain, including non-pharmacological techniques. Patient will verbalize or demonstrate an acceptable level of pain as evidenced by a pain score of 0/10 and improvement in ability to perform activities of daily living to be achieved by 02/03/25. Pain No Manage diabetic foot care Description: Patient/caregiver will demonstrate basic understanding of and compliance with diabetic self-care management as evidenced by verbalizing purpose of daily foot care and assessment by 02/03/25. Diabetic Foot Care No Manage Nutrition/Hydration Description: Patient/caregiver will verbalize/demonstrate knowledge of prescribed diet and/or healthy nutrition to be achieved by 02/03/25. Nutrition/Hydration No Patient/caregiver will teach back high risk medication side effect and precaution education Description: STG Patient/caregiver will verbalize understanding of high risk medication side effects and precautions to be achieved by 02/03/25. LTG Patient/caregiver will continue to verbalize understanding of high risk medication side effects and precautions throughout certification period. High Risk Medications No Manage discharge planning Description: Patient/caregiver will verbalize understanding of ongoing discharge plan provided related to disease management, arrangements for outpatient and/or community services, obtaining medications, supplies, and DME, as needed throughout certification period. Discharge No Improved management of diabetes Description: Improve diabetic management as evidenced by patient/caregiver able to teach back diabetic management strategies by 12/25/24. SN Diabetes No Improved management of cardiovascular disease Description: Improve patient/caregiver management of cardiac disease as evidenced by patient/caregiver ability to teach back cardiac management strategies by 12/25/24. SN Cardiovascular Condition No Demonstrate understanding of education Description: Patient and/or caregiver will verbalize understanding of educational instruction provided throughout certification period. SN Learning Assessment No Patient/Caregiver will verbalize understanding and demonstrate improved management of genitourinary disease/condition. Description: Patient/Caregiver will state understanding of genitourinary disease/condition and be able to teach back management strategies by 12/25/24. SN Genitourinary disease process No Improved management of GI disease/condition Description: Patient/Caregiver will demonstrate understanding of GI education as evidenced by improved management of gastrointestinal disease/condition by 12/25/24. SN Gastrointestinal No Interventions Intervention Associated Problem/Goal Status Variance Visit Notes Medication Education Description: Evaluate/instruct patient/caregiver on obtaining, storing, identifying and administering ordered medications as well as keeping accurate medication list in the home and adhereing to medication schedule Problem:Medication Education Goal:Patient/caregiver will demonstrate ability to obtain, store, identify and administer ordered medications, keep accurate medication list in home, and adhere to medication schedule Completed Patient and Caregiver instructed on importance of keeping accurate medication list in home, need to take up-to-date medication list to all medical provider appointments, adhering to medication schedule and proper storage of medications. Risk of Sepsis Description: Patient is at risk for sepsis. Monitor closely for s/s of sepsis. Problem:Sepsis Goal:Patient/caregiver will be able to identify and report symptoms of sepsis Completed Instruct on the risks and measures to be taken to prevent skin breakdown Description: Patient's Trey Score is: 15. A Trey score <= to 18 indicates risk for skin breakdown. Problem:Risk for skin breakdown Goal:Manage risk for skin breakdown Completed patient and caregiver instructed on maintaining skin integrity including: The need for every 1-2 hour turns, position changes, and maintaining activity as tolerated, Reducing risk of friction and shear, including use of draw sheet as appropriate, Elevating and protecting heels, Incontinence care, Inspecting bony prominences, Routine skin care and Notifying [facility] clinician of changes to skin integrity Evaluation for pressure reduction surfaces completed for bed and chair and recommendations made for reposition at least every 2 hours. SPO2 Description: Notify Dr. Krishnamurthy if pulse ox is <92% at rest. Problem:Physician Specific Parameters Goal:Patient to maintain parameters within physician-specified ranges throughout certification period Completed Instruct on individual fall risk factors and strategies to prevent falls and injuries caused by falls. Problem:Risk for Falls Goal:Manage Risk for falls Completed SN: Patient and Caregiver instructed on Eliminating Environmental Hazards: Keep pathways clear, Keep pets out of pathways, Move furniture from pathways, Keep rooms and walkways well lit, Wear supportive shoes or non-skid socks and Keep frequently used items within reach Managing Cognitive Impairment/Depression : Recommended for caregiver to provide 24 hour supervision, Assistance with ambulation, Assistance with transfers and Assistance with ADLS and Recommended use of visual cues/reminders for safety Reducing Medication Risks: Recommended medication schedule and instructed on management of side effects to minimize fall risk and injuries caused by falls Instruct on pain and instruct on strategies to control pain Problem:Pain Goal:Manage Pain Completed patient and caregiver instructed on techniques to control pain including Pharmacological measures and Non-Pharmacological measures; rest, positioning/elevation , mobility/therapeutic exercise, distraction, breathing/relaxation and use of DME/assistive devices. Monitor lower extremities for skin lesions and educate on proper foot care Problem:Diabetic Foot Care Goal:Manage diabetic foot care Completed patient and caregiver instructed on diabetic foot care including daily skin inspection, wearing proper footwear/avoiding going barefoot, wash/dry feet thoroughly, applying moisturizer, avoiding between toes and toenail care. Define patient s appetite/hydration status and implement strategies to improve compliance with prescribed diet and/or healthy nutrition. Problem:Nutrition/Hydr ation Goal:Manage Nutrition/Hydration Completed instructed patient and caregiver on implementing strategies to comply with healthy nutrition and adequate hydration Hypoglycemic (including insulin)- educated on high risk medication Problem:High Risk Medications Goal:Patient/caregiver will teach back high risk medication side effect and precaution education Completed patient and caregiver educated on taking medication(s) as prescribed by provider. Do not stop medication or skip/alter doses without speaking with your provider. Discuss medication effectiveness or side effect concerns with your provider and home care team. Check blood sugars and keep log as ordered by provider. Monitor for side effects of hypoglycemia such as increased weakness or shaking, moist skin, sweating, fast heartbeat, dizziness, sudden hunger, confusion, pale skin, numbness in mouth or tongue, irritability, nervousness, unsteadiness, nightmares, bad dreams, and restless sleep. Checking your blood sugar routinely and eating a consistent diabetic diet can help regulate blood sugars and reduce side effects. Anticoagulant- educated on high risk medication Problem:High Risk Medications Goal:Patient/caregiver will teach back high risk medication side effect and precaution education Completed patient and caregiver educated on anticoagulant medication Eliquis Take your medication as instructed and at the same time each day. Do not stop medication or alter doses without speaking with your provider. Discuss medication effectiveness or side effect concerns with your provider and home care team. Discuss all medications you are taking, even [id number] medicines, with your provider and pharmacist since many drugs can interact with anticoagulants. Tell anyone providing medical or dental care that you are taking an anticoagulant. DO NOT STOP your medication even for a minor procedure like dental work without first checking with the provider. If you forget to take a dose, DO NOT take a double dose. Take the missed dose as soon as possible on the same day. DO NOT take a double dose the next day to make up for the missed dose. Watch for signs of abnormal or excessive bleeding and bruising (refer to Bleeding Precautions education). Call your health care provider right away if you suspect something is wrong. Instruct on ongoing discharge plan Problem:Discharge Goal:Manage discharge planning Completed Ongoing Discharge plan: Discharge plan discussed with patient and caregiver including frequency and duration for home SN and plan for transition to: caregiver assistance. Instruct on importance of follow-up appts and continued monitoring with medical provider &/or chronic care clinic Problem:Discharge Goal:Manage discharge planning Completed Education provided on importance of compliance with follow-up appointment(s). Recommendations: patient/caregiver to follow up with scheduling appointment(s) for post-acute/primary care provider/chronic care clinic Instruct on diabetes disease process and management of chronic condition Description: Patient has needs for education of diabetes. Problem:SN Diabetes Goal:Improved management of diabetes Completed patient and caregiver assessed and instructed on diabetes disease process, how food and insulin affect blood sugar, diet education, how to carb count and recogonizing s/s of hypoglycemia and hyperglycemia as found in the diabetes self-care booklets. Ensure patient/caregiver has Living with Diabetes Booklet in home Description: SN to provide and refer to diabetes education booklet every visit. Problem:SN Diabetes Goal:Improved management of diabetes Completed Patient does have diabetes self-care booklet. Instruct on cardiovascular disease process and management of condition Description: Patient has following cardiac diagnosis(es): Hypertension. Problem:SN Cardiovascular Condition Goal:Improved management of cardiovascular disease Completed patient and caregiver instructed on cardiac disease process, self monitoring & symptom reporting and Cardiac Diet. Instruct and educate on knowledge deficits Problem:SN Learning Assessment Goal:Demonstrate understanding of education Completed patient and caregiver verbalize and/or demonstrate understanding of nursing education completed today. Education methods include: verbal cues and teach back. Further education required to improve knowledge and compliance with diabetic care management, fall prevention/home safety strategies, medication management and nutrition. Incontinence- Instruct Patient/Caregiver on measures to manage urinary incontinence Problem:SN Genitourinary disease process Goal:Patient/Caregiver will verbalize understanding and demonstrate improved management of genitourinary disease/condition. Completed patient and caregiver instructed on measures to manage Urinary incontinence including: use of pads/protective garments, scheduled bathroom trips and bladder training. Incontinence: Instruct Patient/Caregiver on measures to manage bowel incontinence Problem:SN Gastrointestinal Goal:Improved management of GI disease/condition Completed patient and caregiver instructed on the following measures to manage bowel incontinence: bowel training, perineal skin care, use of moisture barrier and use of incontinence pads/briefs. [facility] Visit Details Visit Type -OT EVAL Discipline -Occupational Therapy Problems Problem Description Start Date Status Goals Interve ntions Medication Education Disciplines: Skilled Services 12/06/2024 Active 1 goal linked to scheduled/documen scooter intervention 1 goal intervention scheduled/document ed in this visit Sepsis Disciplines: Skilled Services 12/06/2024 Active 1 goal linked to scheduled/documen scooter intervention 1 goal intervention scheduled/document ed in this visit OT Referral Disciplines: Skilled Services 12/06/2024 Resolved on 12/10/2024 1 goal linked to scheduled/documen scooter intervention 1 goal intervention scheduled/document ed in this visit Physician Specific Parameters Disciplines: Skilled Services 12/06/2024 Active 1 goal linked to scheduled/documen scooter intervention 1 goal intervention scheduled/document ed in this visit Risk for Falls Disciplines: Skilled Services 12/06/2024 Active 1 goal linked to scheduled/documen scooter intervention 1 goal intervention scheduled/document ed in this visit Pain Disciplines: Skilled Services 12/06/2024 Active 1 goal linked to scheduled/documen scooter intervention 1 goal intervention scheduled/document ed in this visit Diabetic Foot Care Disciplines: Skilled Services 12/06/2024 Active 1 goal linked to scheduled/documen scooter intervention 1 goal intervention scheduled/document ed in this visit Discharge Disciplines: Skilled Services 12/06/2024 Active 1 goal linked to scheduled/documen scooter intervention 1 goal intervention scheduled/document ed in this visit OT Functional Transfers Disciplines: OT 12/10/2024 Active 1 goal linked to scheduled/documen scooter intervention 1 goal intervention scheduled/document ed in this visit Goals Goal Associated Problem Outcome Goal Met? Visit Notes Patient/caregiver will demonstrate ability to obtain, store, identify and administer ordered medications, keep accurate medication list in home, and adhere to medication schedule Description: Patient/caregiver will demonstrate ability to obtain, store, identify and administer ordered medications, keep accurate medication list in home, and adhere to medication schedule by 02/03/25. Medication Education No Patient/caregiver will be able to identify and report symptoms of sepsis Description: Patient/caregiver will be able to identify signs/symptoms of sepsis infection and will verbalize actions to take if suspected by 02/03/25. Sepsis No Patient will be referred to additional discipline as needed OT Referral Completed Yes Patient to maintain parameters within physician-specified ranges throughout certification period Physician Specific Parameters No Manage Risk for falls Description: Patient/caregiver will verbalize knowledge of individualized fall prevention strategies by 02/03/25. Risk for Falls No Manage Pain Description: Patient/caregiver will verbalize knowledge and understanding of appropriate techniques to control pain, including non-pharmacological techniques. Patient will verbalize or demonstrate an acceptable level of pain as evidenced by a pain score of 0/10 and improvement in ability to perform activities of daily living to be achieved by 02/03/25. Pain No Manage diabetic foot care Description: Patient/caregiver will demonstrate basic understanding of and compliance with diabetic self-care management as evidenced by verbalizing purpose of daily foot care and assessment by 02/03/25. Diabetic Foot Care No Manage discharge planning Description: Patient/caregiver will verbalize understanding of ongoing discharge plan provided related to disease management, arrangements for outpatient and/or community services, obtaining medications, supplies, and DME, as needed throughout certification period. Discharge No Improved Functional Transfers Description: patient will demonstrate safe transfers to/from toilet and shower/tub with supervision assistance and no verbal cues with use of DME to be achieved by 01/04/25. OT Functional Transfers No Interventions Intervention Associated Problem/Goal Status Variance Visit Notes Medication Education Description: Evaluate/instruct patient/caregiver on obtaining, storing, identifying and administering ordered medications as well as keeping accurate medication list in the home and adhereing to medication schedule Problem:Medication Education Goal:Patient/caregive r will demonstrate ability to obtain, store, identify and administer ordered medications, keep accurate medication list in home, and adhere to medication schedule Completed Patient and Caregiver instructed on importance of keeping accurate medication list in home and adhering to medication schedule. Risk of Sepsis Description: Patient is at risk for sepsis. Monitor closely for s/s of sepsis. Problem:Sepsis Goal:Patient/caregive r will be able to identify and report symptoms of sepsis Completed OT evaluation and treatment Description: Evaluate and treat for the assessment of functional deficits and establishment of appropriate interventions and education to address: I/ADL training, functional transfers, DME/adaptive equipment recommendations, safety awareness, energy conservation and home safety and falls prevention recommendations. Problem:OT Referral Goal:Patient will be referred to additional discipline as needed Completed SPO2 Description: Notify Dr. Krishnamurthy if pulse ox is <92% at rest. Problem:Physician Specific Parameters Goal:Patient to maintain parameters within physician-specified ranges throughout certification period Completed Instruct on individual fall risk factors and strategies to prevent falls and injuries caused by falls. Problem:Risk for Falls Goal:Manage Risk for falls Completed OT: Patient and Caregiver instructed on Eliminating Environmental Hazards: Keep pathways clear, Keep rooms and walkways well lit and Keep frequently used items within reach Instruct on pain and instruct on strategies to control pain Problem:Pain Goal:Manage Pain Completed patient and caregiver instructed on techniques to control pain including Non-Pharmacological measures; positioning/elevation . Monitor lower extremities for skin lesions and educate on proper foot care Problem:Diabetic Foot Care Goal:Manage diabetic foot care Completed patient and caregiver instructed on diabetic foot care including daily skin inspection and wash/dry feet thoroughly. Instruct on ongoing discharge plan Problem:Discharge Goal:Manage discharge planning Completed Ongoing Discharge plan: Discharge plan discussed with patient and caregiver including frequency and duration for home OT and plan for transition to: caregiver assistance. Transfer Training Problem:OT Functional Transfers Goal:Improved Functional Transfers Completed Instruct patient on safe transfers and proper techniques including slow positional changes, walker placement to perform to and from toilet with Min assistance and verbal and tactile cues for safety, technique. documented in this encounter [facility] Plan of care note* Visit Details Visit Type -PT EVAL Discipline -Physical Therapy Problems Problem Description Start Date Status Goals Interve ntions Sepsis Disciplines: Skilled Services 12/06/2024 Active 1 goal linked to scheduled/documente d intervention 1 goal intervention scheduled/documente d in this visit PT Referral Disciplines: Skilled Services 12/06/2024 Active 1 goal linked to scheduled/documente d intervention 1 goal intervention scheduled/documente d in this visit Physician Specific Parameters Disciplines: Skilled Services 12/06/2024 Active 1 goal linked to scheduled/documente d intervention 1 goal intervention scheduled/documente d in this visit Risk for Falls Disciplines: Skilled Services 12/06/2024 Active 1 goal linked to scheduled/documente d intervention 1 goal intervention scheduled/documente d in this visit PT Learning Assessment Disciplines: PT 12/10/2024 Active 1 goal linked to scheduled/documente d intervention 1 goal intervention scheduled/documente d in this visit Goals Goal Associated Problem Outcome Goal Met? Visit Notes Patient/caregiver will be able to identify and report symptoms of sepsis Description: Patient/caregiver will be able to identify signs/symptoms of sepsis infection and will verbalize actions to take if suspected by 02/03/25. Sepsis No Patient will be referred to additional discipline as needed PT Referral No Patient to maintain parameters within physician-specified ranges throughout certification period Physician Specific Parameters No Manage Risk for falls Description: Patient/caregiver will verbalize knowledge of individualized fall prevention strategies by 02/03/25. Risk for Falls No Demonstrate understanding of education Description: Patient and/or caregiver will understand educational instruction to be achieved by 01/04/25. . PT Learning Assessment No Interventions Intervention Associated Problem/Goal Status Variance Visit Notes Risk of Sepsis Description: Patient is at risk for sepsis. Monitor closely for s/s of sepsis. Problem:Sepsis Goal:Patient/caregive r will be able to identify and report symptoms of sepsis Completed PT evaluation and treatment Description: Evaluate and treat for the assessment of functional deficits and establishment of appropriate interventions and education, including recommendations for functional mobility training, balance training for fall reduction, and strengthening. Problem:PT Referral Goal:Patient will be referred to additional discipline as needed Completed SPO2 Description: Notify Dr. Krishnamurthy if pulse ox is <92% at rest. Problem:Physician Specific Parameters Goal:Patient to maintain parameters within physician-specified ranges throughout certification period Completed Instruct on individual fall risk factors and strategies to prevent falls and injuries caused by falls. Problem:Risk for Falls Goal:Manage Risk for falls Completed PT: Patient instructed on Eliminating Environmental Hazards: Keep pathways clear, Remove unsafe rugs, Move furniture from pathways, Keep rooms and walkways well lit, Install hand rails/grab bars and Wear supportive shoes or non-skid socks Managing Impaired Functional Mobility: Use assistive device(s): front wheeled walker Managing Pain Instruct and educate on knowledge deficits Problem:PT Learning Assessment Goal:Demonstrate understanding of education Completed patient verbalize and/or demonstrate understanding of physical therapy education including fall prevention strategies, home safety, functional activity and home exercise program. Education methods include: verbal cues. Further education required to improve knowledge and compliance with fall prevention strategies, home safety, functional activity and home exercise program. [facility] Visit Details Visit Type -SN ROUTINE Discipline -Fpc Problems Problem Description Start Date Status Goals Interve ntions Medication Education Disciplines: Skilled Services 12/06/2024 Active 1 goal linked to scheduled/documen scooter intervention 1 goal intervention scheduled/document ed in this visit Sepsis Disciplines: Skilled Services 12/06/2024 Active 1 goal linked to scheduled/documen scooter intervention 1 goal intervention scheduled/document ed in this visit Risk for skin breakdown Disciplines: Skilled Services 12/06/2024 Active 1 goal linked to scheduled/documen scooter intervention 1 goal intervention scheduled/document ed in this visit Physician Specific Parameters Disciplines: Skilled Services 12/06/2024 Active 1 goal linked to scheduled/documen scooter intervention 1 goal intervention scheduled/document ed in this visit Risk for Falls Disciplines: Skilled Services 12/06/2024 Active 1 goal linked to scheduled/documen scooter intervention 1 goal intervention scheduled/document ed in this visit Pain Disciplines: Skilled Services 12/06/2024 Active 1 goal linked to scheduled/documen scooter intervention 1 goal intervention scheduled/document ed in this visit Diabetic Foot Care Disciplines: Skilled Services 12/06/2024 Active 1 goal linked to scheduled/documen scooter intervention 1 goal intervention scheduled/document ed in this visit Nutrition/Hydration Disciplines: Skilled Services 12/06/2024 Active 1 goal linked to scheduled/documen scooter intervention 1 goal intervention scheduled/document ed in this visit High Risk Medications Disciplines: Skilled Services 12/06/2024 Active 1 goal linked to scheduled/documen scooter intervention 2 goal interventions scheduled/document ed in this visit Discharge Disciplines: Skilled Services 12/06/2024 Active 1 goal linked to scheduled/documen scooter intervention 3 goal interventions scheduled/document ed in this visit SN Diabetes Disciplines: SN 12/06/2024 Active 1 goal linked to scheduled/documen scooter intervention 2 goal interventions scheduled/document ed in this visit SN Cardiovascular Condition Disciplines: SN 12/06/2024 Active 1 goal linked to scheduled/documen scooter intervention 1 goal intervention scheduled/document ed in this visit SN Learning Assessment Disciplines: SN 12/06/2024 Active 1 goal linked to scheduled/documen scooter intervention 1 goal intervention scheduled/document ed in this visit SN Genitourinary disease process Disciplines: SN 12/06/2024 Active 1 goal linked to scheduled/documen scooter intervention 1 goal intervention scheduled/document ed in this visit SN Gastrointestinal Disciplines: 12/06/2024 Active 1 goal linked to scheduled/documen scooter intervention 1 goal intervention scheduled/document ed in this visit Goals Goal Associated Problem Outcome Goal Met? Visit Notes Patient/caregiver will demonstrate ability to obtain, store, identify and administer ordered medications, keep accurate medication list in home, and adhere to medication schedule Description: Patient/caregiver will demonstrate ability to obtain, store, identify and administer ordered medications, keep accurate medication list in home, and adhere to medication schedule by 02/03/25. Medication Education No Patient/caregiver will be able to identify and report symptoms of sepsis Description: Patient/caregiver will be able to identify signs/symptoms of sepsis infection and will verbalize actions to take if suspected by 02/03/25. Sepsis No Manage risk for skin breakdown Description: Patient/caregiver will verbalize and demonstrate understanding of the risks and measures to be taken to monitor and prevent skin breakdown by 02/03/25. Risk for skin breakdown No Patient to maintain parameters within physician-specified ranges throughout certification period Physician Specific Parameters No Manage Risk for falls Description: Patient/caregiver will verbalize knowledge of individualized fall prevention strategies by 02/03/25. Risk for Falls No Manage Pain Description: Patient/caregiver will verbalize knowledge and understanding of appropriate techniques to control pain, including non-pharmacological techniques. Patient will verbalize or demonstrate an acceptable level of pain as evidenced by a pain score of 0/10 and improvement in ability to perform activities of daily living to be achieved by 02/03/25. Pain No Manage diabetic foot care Description: Patient/caregiver will demonstrate basic understanding of and compliance with diabetic self-care management as evidenced by verbalizing purpose of daily foot care and assessment by 02/03/25. Diabetic Foot Care No Manage Nutrition/Hydration Description: Patient/caregiver will verbalize/demonstrate knowledge of prescribed diet and/or healthy nutrition to be achieved by 02/03/25. Nutrition/Hydration No Patient/caregiver will teach back high risk medication side effect and precaution education Description: STG Patient/caregiver will verbalize understanding of high risk medication side effects and precautions to be achieved by 02/03/25. LTG Patient/caregiver will continue to verbalize understanding of high risk medication side effects and precautions throughout certification period. High Risk Medications No Manage discharge planning Description: Patient/caregiver will verbalize understanding of ongoing discharge plan provided related to disease management, arrangements for outpatient and/or community services, obtaining medications, supplies, and DME, as needed throughout certification period. Discharge No Improved management of diabetes Description: Improve diabetic management as evidenced by patient/caregiver able to teach back diabetic management strategies by 12/25/24. SN Diabetes No Improved management of cardiovascular disease Description: Improve patient/caregiver management of cardiac disease as evidenced by patient/caregiver ability to teach back cardiac management strategies by 12/25/24. SN Cardiovascular Condition No Demonstrate understanding of education Description: Patient and/or caregiver will verbalize understanding of educational instruction provided throughout certification period. SN Learning Assessment No Patient/Caregiver will verbalize understanding and demonstrate improved management of genitourinary disease/condition. Description: Patient/Caregiver will state understanding of genitourinary disease/condition and be able to teach back management strategies by 12/25/24. SN Genitourinary disease process No Improved management of GI disease/condition Description: Patient/Caregiver will demonstrate understanding of GI education as evidenced by improved management of gastrointestinal disease/condition by 12/25/24. SN Gastrointestinal No Interventions Intervention Associated Problem/Goal Status Variance Visit Notes Medication Education Description: Evaluate/instruct patient/caregiver on obtaining, storing, identifying and administering ordered medications as well as keeping accurate medication list in the home and adhereing to medication schedule Problem:Medication Education Goal:Patient/caregiver will demonstrate ability to obtain, store, identify and administer ordered medications, keep accurate medication list in home, and adhere to medication schedule Completed Patient and Caregiver instructed on importance of keeping accurate medication list in home, need to take up-to-date medication list to all medical provider appointments, adhering to medication schedule and proper storage of medications. Risk of Sepsis Description: Patient is at risk for sepsis. Monitor closely for s/s of sepsis. Problem:Sepsis Goal:Patient/caregiver will be able to identify and report symptoms of sepsis Completed Instruct on the risks and measures to be taken to prevent skin breakdown Description: Patient's Trey Score is: 15. A Trey score <= to 18 indicates risk for skin breakdown. Problem:Risk for skin breakdown Goal:Manage risk for skin breakdown Completed patient and caregiver instructed on maintaining skin integrity including: The need for every 1-2 hour turns, position changes, and maintaining activity as tolerated, Reducing risk of friction and shear, including use of draw sheet as appropriate, Elevating and protecting heels, Incontinence care, Inspecting bony prominences, Routine skin care and Notifying [facility] clinician of changes to skin integrity Evaluation for pressure reduction surfaces completed for bed and chair and recommendations made for reposition at least every 2 hours keep skin clean and dry. SPO2 Description: Notify Dr. Krishnamurthy if pulse ox is <92% at rest. Problem:Physician Specific Parameters Goal:Patient to maintain parameters within physician-specified ranges throughout certification period Completed Instruct on individual fall risk factors and strategies to prevent falls and injuries caused by falls. Problem:Risk for Falls Goal:Manage Risk for falls Completed SN: Patient and Caregiver instructed on Eliminating Environmental Hazards: Keep pathways clear, Keep pets out of pathways, Move furniture from pathways, Keep rooms and walkways well lit, Wear supportive shoes or non-skid socks and Keep frequently used items within reach Instruct on pain and instruct on strategies to control pain Problem:Pain Goal:Manage Pain Completed patient and caregiver instructed on techniques to control pain including Pharmacological measures and Non-Pharmacological measures; rest, positioning/elevation , mobility/therapeutic exercise, distraction, breathing/relaxation and use of DME/assistive devices. Monitor lower extremities for skin lesions and educate on proper foot care Problem:Diabetic Foot Care Goal:Manage diabetic foot care Completed patient and caregiver instructed on diabetic foot care including daily skin inspection, wearing proper footwear/avoiding going barefoot, wash/dry feet thoroughly, applying moisturizer, avoiding between toes and toenail care. Define patient s appetite/hydration status and implement strategies to improve compliance with prescribed diet and/or healthy nutrition. Problem:Nutrition/Hydr ation Goal:Manage Nutrition/Hydration Completed instructed patient and caregiver on implementing strategies to comply with healthy nutrition and adequate hydration Hypoglycemic (including insulin)- educated on high risk medication Problem:High Risk Medications Goal:Patient/caregiver will teach back high risk medication side effect and precaution education Completed patient and caregiver educated on taking medication(s) as prescribed by provider. Do not stop medication or skip/alter doses without speaking with your provider. Discuss medication effectiveness or side effect concerns with your provider and home care team. Check blood sugars and keep log as ordered by provider. Monitor for side effects of hypoglycemia such as increased weakness or shaking, moist skin, sweating, fast heartbeat, dizziness, sudden hunger, confusion, pale skin, numbness in mouth or tongue, irritability, nervousness, unsteadiness, nightmares, bad dreams, and restless sleep. Checking your blood sugar routinely and eating a consistent diabetic diet can help regulate blood sugars and reduce side effects. Anticoagulant- educated on high risk medication Problem:High Risk Medications Goal:Patient/caregiver will teach back high risk medication side effect and precaution education Completed patient and caregiver educated on anticoagulant medication Eliquis Take your medication as instructed and at the same time each day. Do not stop medication or alter doses without speaking with your provider. Discuss medication effectiveness or side effect concerns with your provider and home care team. Discuss all medications you are taking, even [id number] medicines, with your provider and pharmacist since many drugs can interact with anticoagulants. Tell anyone providing medical or dental care that you are taking an anticoagulant. DO NOT STOP your medication even for a minor procedure like dental work without first checking with the provider. If you forget to take a dose, DO NOT take a double dose. Take the missed dose as soon as possible on the same day. DO NOT take a double dose the next day to make up for the missed dose. Watch for signs of abnormal or excessive bleeding and bruising (refer to Bleeding Precautions education). Call your health care provider right away if you suspect something is wrong. Instruct on ongoing discharge plan Problem:Discharge Goal:Manage discharge planning Completed Ongoing Discharge plan: Discharge plan discussed with patient and caregiver including frequency and duration for home SN and plan for transition to: caregiver assistance. Instruct on importance of follow-up appts and continued monitoring with medical provider &/or chronic care clinic Problem:Discharge Goal:Manage discharge planning Completed Education provided on importance of compliance with follow-up appointment(s). Recommendations: patient/caregiver to follow up with scheduling appointment(s) for post-acute/primary care provider/chronic care clinic Instruct on final discharge plan and deliver discharge instructions Problem:Discharge Goal:Manage discharge planning Delivered Discharge plan: Discharge plan discussed with patient and caregiver for plan for transition to: caregiver assistance Instruct on diabetes disease process and management of chronic condition Description: Patient has needs for education of diabetes. Problem:SN Diabetes Goal:Improved management of diabetes Completed patient and caregiver assessed and reinforced on diabetes disease process, how food and insulin affect blood sugar, diet education, how to carb count and recogonizing s/s of hypoglycemia and hyperglycemia as found in the diabetes self-care booklets. Ensure patient/caregiver has Living with Diabetes Booklet in home Description: SN to provide and refer to diabetes education booklet every visit. Problem:SN Diabetes Goal:Improved management of diabetes Completed Patient has diabetes self-care booklet. Instruct on cardiovascular disease process and management of condition Description: Patient has following cardiac diagnosis(es): Hypertension. Problem:SN Cardiovascular Condition Goal:Improved management of cardiovascular disease Completed patient and caregiver instructed on cardiac disease process, self monitoring & symptom reporting and Cardiac Diet. Instruct and educate on knowledge deficits Problem:SN Learning Assessment Goal:Demonstrate understanding of education Completed patient and caregiver verbalize and/or demonstrate understanding of nursing education completed today. Education methods include: verbal cues and teach back. Further education required to improve knowledge and compliance with cardiac disease management, fall prevention/home safety strategies and incision/wound care management. Incontinence- Instruct Patient/Caregiver on measures to manage urinary incontinence Problem:SN Genitourinary disease process Goal:Patient/Caregiver will verbalize understanding and demonstrate improved management of genitourinary disease/condition. Completed patient and caregiver instructed on measures to manage Urinary incontinence including: use of pads/protective garments, scheduled bathroom trips, bladder training and skin care after incontinence episode. Incontinence: Instruct Patient/Caregiver on measures to manage bowel incontinence Problem:SN Gastrointestinal Goal:Improved management of GI disease/condition Completed patient and caregiver instructed on the following measures to manage bowel incontinence: bowel training, perineal skin care, use of moisture barrier and use of incontinence pads/briefs. documented in this encounter [facility] Plan of care note* Visit Details Visit Type -DRY CLEANING CHECKER ROUTINE Discipline -Physical Therapy Problems Problem Description Start Date Status Goals Interve ntions Medication Education Disciplines: Skilled Services 12/06/2024 Active 1 goal linked to scheduled/document ed intervention 1 goal intervention scheduled/document ed in this visit Sepsis Disciplines: Skilled Services 12/06/2024 Active 1 goal linked to scheduled/document ed intervention 1 goal intervention scheduled/document ed in this visit Physician Specific Parameters Disciplines: Skilled Services 12/06/2024 Active 1 goal linked to scheduled/document ed intervention 1 goal intervention scheduled/document ed in this visit Risk for Falls Disciplines: Skilled Services 12/06/2024 Active 1 goal linked to scheduled/document ed intervention 1 goal intervention scheduled/document ed in this visit Discharge Disciplines: Skilled Services 12/06/2024 Active 1 goal linked to scheduled/document ed intervention 1 goal intervention scheduled/document ed in this visit PT Impaired muscle performance and/or ROM Disciplines: PT 12/10/2024 Active 1 goal linked to scheduled/document ed intervention 1 goal intervention scheduled/document ed in this visit PT Impaired mobility Disciplines: PT 12/10/2024 Active 1 goal linked to scheduled/document ed intervention 1 goal intervention scheduled/document ed in this visit PT Impaired gait Disciplines: PT 12/10/2024 Active 2 goals linked to scheduled/document ed interventions 2 goal interventions scheduled/document ed in this visit PT Learning Assessment Disciplines: PT 12/10/2024 Active 1 goal linked to scheduled/document ed intervention 1 goal intervention scheduled/document ed in this visit Goals Goal Associated Problem Outcome Goal Met? Visit Notes Patient/caregiver will demonstrate ability to obtain, store, identify and administer ordered medications, keep accurate medication list in home, and adhere to medication schedule Description: Patient/caregiver will demonstrate ability to obtain, store, identify and administer ordered medications, keep accurate medication list in home, and adhere to medication schedule by 02/03/25. Medication Education No Patient/caregiver will be able to identify and report symptoms of sepsis Description: Patient/caregiver will be able to identify signs/symptoms of sepsis infection and will verbalize actions to take if suspected by 02/03/25. Sepsis No Patient to maintain parameters within physician-specified ranges throughout certification period Physician Specific Parameters No Manage Risk for falls Description: Patient/caregiver will verbalize knowledge of individualized fall prevention strategies by 02/03/25. Risk for Falls No Manage discharge planning Description: Patient/caregiver will verbalize understanding of ongoing discharge plan provided related to disease management, arrangements for outpatient and/or community services, obtaining medications, supplies, and DME, as needed throughout certification period. Discharge No Improved Muscle Performance and/or ROM Description: LTG: Patient will demonstrate improved muscle performance to meet functional goals as evidenced by ability to tolerate 10-15 minutes of therapeutic activity, to be achieved by 01/04/25. . STG: Patient and/or caregiver will verbalize/demonstrate independence with home exercise program, to improve functional mobility, to be achieved by 12/28/24. PT Impaired muscle performance and/or ROM No Improved Transfers Description: LTG: Patient will demonstrate safe transfers to/from bed, chair and car with supervision, to be achieved by 01/04/25. . PT Impaired mobility No Improved Stair Climbing Description: LTG: Patient will demonstrate improved stair negotiation as evidenced by ascend/descend 2 steps with walker with sba assistance, to safely access community and exit home, to be achieved by 01/04/25. . PT Impaired gait No Improved Gait Description: LTG: Patient will demonstrate improved gait ability as evidenced by ambulation 100 feet with front wheeled walker with supervision, to return to safe household and short community ambulation, in order to return to plf, to be achieved by 01/04/25. . PT Impaired gait No Demonstrate understanding of education Description: Patient and/or caregiver will understand educational instruction to be achieved by 01/04/25. . PT Learning Assessment No Interventions Intervention Associated Problem/Goal Status Variance Visit Notes Medication Education Description: Evaluate/instruct patient/caregiver on obtaining, storing, identifying and administering ordered medications as well as keeping accurate medication list in the home and adhereing to medication schedule Problem:Medication Education Goal:Patient/caregive r will demonstrate ability to obtain, store, identify and administer ordered medications, keep accurate medication list in home, and adhere to medication schedule Completed Patient and caregiver instructed on adhering to medication schedule. Risk of Sepsis Description: Patient is at risk for sepsis. Monitor closely for s/s of sepsis. Problem:Sepsis Goal:Patient/caregive r will be able to identify and report symptoms of sepsis Completed SPO2 Description: Notify Dr. Krishnamurthy if pulse ox is <92% at rest. Problem:Physician Specific Parameters Goal:Patient to maintain parameters within physician-specified ranges throughout certification period Completed Instruct on individual fall risk factors and strategies to prevent falls and injuries caused by falls. Problem:Risk for Falls Goal:Manage Risk for falls Completed PT: Patient and Caregiver instructed on Managing Impaired Functional Mobility: Use assistive device(s): front wheeled walker Instruct on ongoing discharge plan Problem:Discharge Goal:Manage discharge planning Completed Ongoing Discharge plan: Discharge plan discussed with patient including frequency and duration for home PT and plan for transition to: live independently at home without ongoing services and caregiver assistance. Physical Therapy Therapeutic Exercises Problem:PT Impaired muscle performance and/or ROM Goal:Improved Muscle Performance and/or ROM Completed patient instructed on strengthening exercises including seated heel/toe raises, LAQ, Hip ADD/pillow squeezes, and marches all bilat x 10 with verbal and tactile cues for sequence and form. patient and caregiver instructed to perform home exercise program twice a day which included above exercises. Handout provided. Physical Therapy Transfer Training Problem:PT Impaired mobility Goal:Improved Transfers Completed Transfer training and instruction to patient on safe transfers to and from car with contact guard assist provided by pt's daughter when pt stepped out of car. Physical Therapy Stair Training Problem:PT Impaired gait Goal:Improved Stair Climbing Completed Stair training and instruction to patient on safe stair climbing, ascend/descend 2 steps, with FWW with contact guard assist provided by daughter and verbal cues for picking walker up first, stepping up, and finding balance. Physical Therapy Gait Training Problem:PT Impaired gait Goal:Improved Gait Completed Gait training and instruction to patient on safe ambulation with front wheeled walker for 40, 50 feet with sitting rest break in between with pt's daughter assisting pt during outside ambulation when crossing uneven ground. Instruct and educate on knowledge deficits Problem:PT Learning Assessment Goal:Demonstrate understanding of education Completed patient and caregiver verbalize and/or demonstrate understanding of physical therapy education including home exercise program. Education methods include: verbal cues, tactile cues, written instructions and visual cues. Further education required to improve knowledge and compliance with home exercise program. documented in this encounter [facility]'s home Plan of care note* Visit Details Visit Type -DRY CLEANING CHECKER ROUTINE Discipline -Physical Therapy Problems Problem Description Start Date Status Goals Interve ntions Medication Education Disciplines: Skilled Services 12/06/2024 Active 1 goal linked to scheduled/document ed intervention 1 goal intervention scheduled/document ed in this visit Sepsis Disciplines: Skilled Services 12/06/2024 Active 1 goal linked to scheduled/document ed intervention 1 goal intervention scheduled/document ed in this visit Risk for skin breakdown Disciplines: Skilled Services 12/06/2024 Active 1 goal linked to scheduled/document ed intervention 1 goal intervention scheduled/document ed in this visit Physician Specific Parameters Disciplines: Skilled Services 12/06/2024 Active 1 goal linked to scheduled/document ed intervention 1 goal intervention scheduled/document ed in this visit Risk for Falls Disciplines: Skilled Services 12/06/2024 Active 1 goal linked to scheduled/document ed intervention 1 goal intervention scheduled/document ed in this visit Pain Disciplines: Skilled Services 12/06/2024 Active 1 goal linked to scheduled/document ed intervention 1 goal intervention scheduled/document ed in this visit Diabetic Foot Care Disciplines: Skilled Services 12/06/2024 Active 1 goal linked to scheduled/document ed intervention 1 goal intervention scheduled/document ed in this visit Discharge Disciplines: Skilled Services 12/06/2024 Active 1 goal linked to scheduled/document ed intervention 1 goal intervention scheduled/document ed in this visit PT Impaired muscle performance and/or ROM Disciplines: PT 12/10/2024 Active 1 goal linked to scheduled/document ed intervention 1 goal intervention scheduled/document ed in this visit PT Impaired gait Disciplines: PT 12/10/2024 Active 1 goal linked to scheduled/document ed intervention 1 goal intervention scheduled/document ed in this visit PT Impaired balance Disciplines: PT 12/10/2024 Active 1 goal linked to scheduled/document ed intervention 1 goal intervention scheduled/document ed in this visit PT Learning Assessment Disciplines: PT 12/10/2024 Active 1 goal linked to scheduled/document ed intervention 1 goal intervention scheduled/document ed in this visit Goals Goal Associated Problem Outcome Goal Met? Visit Notes Patient/caregiver will demonstrate ability to obtain, store, identify and administer ordered medications, keep accurate medication list in home, and adhere to medication schedule Description: Patient/caregiver will demonstrate ability to obtain, store, identify and administer ordered medications, keep accurate medication list in home, and adhere to medication schedule by 02/03/25. Medication Education No Patient/caregiver will be able to identify and report symptoms of sepsis Description: Patient/caregiver will be able to identify signs/symptoms of sepsis infection and will verbalize actions to take if suspected by 02/03/25. Sepsis No Manage risk for skin breakdown Description: Patient/caregiver will verbalize and demonstrate understanding of the risks and measures to be taken to monitor and prevent skin breakdown by 02/03/25. Risk for skin breakdown No Patient to maintain parameters within physician-specified ranges throughout certification period Physician Specific Parameters No Manage Risk for falls Description: Patient/caregiver will verbalize knowledge of individualized fall prevention strategies by 02/03/25. Risk for Falls No Manage Pain Description: Patient/caregiver will verbalize knowledge and understanding of appropriate techniques to control pain, including non-pharmacological techniques. Patient will verbalize or demonstrate an acceptable level of pain as evidenced by a pain score of 0/10 and improvement in ability to perform activities of daily living to be achieved by 02/03/25. Pain No Manage diabetic foot care Description: Patient/caregiver will demonstrate basic understanding of and compliance with diabetic self-care management as evidenced by verbalizing purpose of daily foot care and assessment by 02/03/25. Diabetic Foot Care No Manage discharge planning Description: Patient/caregiver will verbalize understanding of ongoing discharge plan provided related to disease management, arrangements for outpatient and/or community services, obtaining medications, supplies, and DME, as needed throughout certification period. Discharge No Improved Muscle Performance and/or ROM Description: LTG: Patient will demonstrate improved muscle performance to meet functional goals as evidenced by ability to tolerate 10-15 minutes of therapeutic activity, to be achieved by 01/04/25. . STG: Patient and/or caregiver will verbalize/demonstrate independence with home exercise program, to improve functional mobility, to be achieved by 12/28/24. PT Impaired muscle performance and/or ROM No Improved Gait Description: LTG: Patient will demonstrate improved gait ability as evidenced by ambulation 100 feet with front wheeled walker with supervision, to return to safe household and short community ambulation, in order to return to [facility], to be achieved by 01/04/25. . PT Impaired gait No Improved Balance Description: LTG: Patient will demonstrate improved standing balance to meet functional goals as evidenced by TUG score of 26 w/ww to be achieved by 01/04/25. PT Impaired balance No Demonstrate understanding of education Description: Patient and/or caregiver will understand educational instruction to be achieved by 01/04/25. . PT Learning Assessment No Interventions Intervention Associated Problem/Goal Status Variance Visit Notes Medication Education Description: Evaluate/instruct patient/caregiver on obtaining, storing, identifying and administering ordered medications as well as keeping accurate medication list in the home and adhereing to medication schedule Problem:Medication Education Goal:Patient/caregive r will demonstrate ability to obtain, store, identify and administer ordered medications, keep accurate medication list in home, and adhere to medication schedule Completed Patient and Caregiver instructed on adhering to medication schedule. Risk of Sepsis Description: Patient is at risk for sepsis. Monitor closely for s/s of sepsis. Problem:Sepsis Goal:Patient/caregive r will be able to identify and report symptoms of sepsis Completed Instruct on the risks and measures to be taken to prevent skin breakdown Description: Patient's Trey Score is: 15. A Trey score <= to 18 indicates risk for skin breakdown. Problem:Risk for skin breakdown Goal:Manage risk for skin breakdown Completed patient and caregiver instructed on maintaining skin integrity including: The need for every 1-2 hour turns, position changes, and maintaining activity as tolerated SPO2 Description: Notify Dr. Krishnamurthy if pulse ox is <92% at rest. Problem:Physician Specific Parameters Goal:Patient to maintain parameters within physician-specified ranges throughout certification period Completed Instruct on individual fall risk factors and strategies to prevent falls and injuries caused by falls. Problem:Risk for Falls Goal:Manage Risk for falls Completed PT: Patient instructed on Managing Impaired Functional Mobility: Use assistive device(s): front wheeled walker Managing Pain Instruct on pain and instruct on strategies to control pain Problem:Pain Goal:Manage Pain Completed patient and caregiver instructed on techniques to control pain including Pharmacological measures and Non-Pharmacological measures; use of thermal modalities, apply heat to affected area for the following prescribed frequency: PRN. Monitor lower extremities for skin lesions and educate on proper foot care Problem:Diabetic Foot Care Goal:Manage diabetic foot care Completed patient and caregiver instructed on diabetic foot care including wearing proper footwear/avoiding going barefoot. Instruct on ongoing discharge plan Problem:Discharge Goal:Manage discharge planning Completed Ongoing Discharge plan: Discharge plan discussed with caregiver and patient including frequency and duration for home PT and plan for transition to: live independently at home without ongoing services. Physical Therapy Therapeutic Exercises Problem:PT Impaired muscle performance and/or ROM Goal:Improved Muscle Performance and/or ROM Completed patient instructed on strengthening exercises including seated marching x 15 each leg, LAQ x 15 each leg, pillow squeezes x 10, Seated Hip ABD x 15 each leg, Seated Heel/Toe raises x 15 with verbal, visual, and tactile cues for form and quantity. patient instructed to perform home exercise program twice a day which included above exercises. Physical Therapy Gait Training Problem:PT Impaired gait Goal:Improved Gait Completed Gait training and instruction to patient on safe ambulation with front wheeled walker for 50 feet with supervision, with verbal cues for corrections of gait deviations including pace and direction on where to walk to. Physical Therapy Balance Training Problem:PT Impaired balance Goal:Improved Balance Completed Developed, implemented, and instructed patient on standing balance exercises including standing reaches at walker x 5 each arm x 1 UE support, SBA Instruct and educate on knowledge deficits Problem:PT Learning Assessment Goal:Demonstrate understanding of education Completed patient verbalize and/or demonstrate understanding of physical therapy education including pain management. Education methods include: verbal cues, tactile cues and written instructions. Further education required to improve knowledge and compliance with home exercise program. [facility] Visit Details Visit Type -DIAZ ROUTINE Discipline -Occupational Therapy Problems Problem Description Start Date Status Goals Interve ntions Medication Education Disciplines: Skilled Services 12/06/2024 Active 1 goal linked to scheduled/documente d intervention 1 goal intervention scheduled/documente d in this visit Sepsis Disciplines: Skilled Services 12/06/2024 Active 1 goal linked to scheduled/documente d intervention 1 goal intervention scheduled/documente d in this visit Risk for skin breakdown Disciplines: Skilled Services 12/06/2024 Active 1 goal linked to scheduled/documente d intervention 1 goal intervention scheduled/documente d in this visit Physician Specific Parameters Disciplines: Skilled Services 12/06/2024 Active 1 goal linked to scheduled/documente d intervention 1 goal intervention scheduled/documente d in this visit Risk for Falls Disciplines: Skilled Services 12/06/2024 Active 1 goal linked to scheduled/documente d intervention 1 goal intervention scheduled/documente d in this visit Pain Disciplines: Skilled Services 12/06/2024 Active 1 goal linked to scheduled/documente d intervention 1 goal intervention scheduled/documente d in this visit Diabetic Foot Care Disciplines: Skilled Services 12/06/2024 Active 1 goal linked to scheduled/documente d intervention 1 goal intervention scheduled/documente d in this visit Discharge Disciplines: Skilled Services 12/06/2024 Active 1 goal linked to scheduled/documente d intervention 1 goal intervention scheduled/documente d in this visit OT Learning Assessment Disciplines: OT 12/10/2024 Active 1 goal linked to scheduled/documente d intervention 1 goal intervention scheduled/documente d in this visit OT ADLs/IADLs Disciplines: OT 12/10/2024 Active 1 goal linked to scheduled/documente d intervention 1 goal intervention scheduled/documente d in this visit OT Balance Disciplines: OT 12/10/2024 Active 1 goal linked to scheduled/documente d intervention 1 goal intervention scheduled/documente d in this visit Goals Goal Associated Problem Outcome Goal Met? Visit Notes Patient/caregiver will demonstrate ability to obtain, store, identify and administer ordered medications, keep accurate medication list in home, and adhere to medication schedule Description: Patient/caregiver will demonstrate ability to obtain, store, identify and administer ordered medications, keep accurate medication list in home, and adhere to medication schedule by 02/03/25. Medication Education No Patient/caregiver will be able to identify and report symptoms of sepsis Description: Patient/caregiver will be able to identify signs/symptoms of sepsis infection and will verbalize actions to take if suspected by 02/03/25. Sepsis No Manage risk for skin breakdown Description: Patient/caregiver will verbalize and demonstrate understanding of the risks and measures to be taken to monitor and prevent skin breakdown by 02/03/25. Risk for skin breakdown No Patient to maintain parameters within physician-specified ranges throughout certification period Physician Specific Parameters No Manage Risk for falls Description: Patient/caregiver will verbalize knowledge of individualized fall prevention strategies by 02/03/25. Risk for Falls No Manage Pain Description: Patient/caregiver will verbalize knowledge and understanding of appropriate techniques to control pain, including non-pharmacological techniques. Patient will verbalize or demonstrate an acceptable level of pain as evidenced by a pain score of 0/10 and improvement in ability to perform activities of daily living to be achieved by 02/03/25. Pain No Manage diabetic foot care Description: Patient/caregiver will demonstrate basic understanding of and compliance with diabetic self-care management as evidenced by verbalizing purpose of daily foot care and assessment by 02/03/25. Diabetic Foot Care No Manage discharge planning Description: Patient/caregiver will verbalize understanding of ongoing discharge plan provided related to disease management, arrangements for outpatient and/or community services, obtaining medications, supplies, and DME, as needed throughout certification period. Discharge No Demonstrate understanding of education Description: Patient and/or caregiver will understand educational instruction to be achieved by 01/04/25. OT Learning Assessment No Improved ADLs/IADLs performance Description: patient will verbalize understanding of instructions and demonstrate improved performance of lower body dressing to supervision or setup assistance as evidenced by improved [place] ADL Index score to at least 40 to be achieved by 01/04/25. OT ADLs/IADLs No Improved Balance Description: Patient will demonstrate improved standing balance to meet functional goals as evidenced by ability to stand for 3-5 minutes to be achieved by 01/04/25. OT Balance No Interventions Intervention Associated Problem/Goal Status Variance Visit Notes Medication Education Description: Evaluate/instruct patient/caregiver on obtaining, storing, identifying and administering ordered medications as well as keeping accurate medication list in the home and adhereing to medication schedule Problem:Medication Education Goal:Patient/caregive r will demonstrate ability to obtain, store, identify and administer ordered medications, keep accurate medication list in home, and adhere to medication schedule Completed Patient and Caregiver instructed on importance of keeping accurate medication list in home, need to take up-to-date medication list to all medical provider appointments and adhering to medication schedule. Risk of Sepsis Description: Patient is at risk for sepsis. Monitor closely for s/s of sepsis. Problem:Sepsis Goal:Patient/caregive r will be able to identify and report symptoms of sepsis Completed Instruct on the risks and measures to be taken to prevent skin breakdown Description: Patient's Trey Score is: 15. A Trey score <= to 18 indicates risk for skin breakdown. Problem:Risk for skin breakdown Goal:Manage risk for skin breakdown Completed patient and caregiver instructed on maintaining skin integrity including: Elevating and protecting heels, Incontinence care, Inspecting bony prominences, Routine skin care and Notifying [facility] clinician of changes to skin integrity Evaluation for pressure reduction surfaces completed for bed and chair. SPO2 Description: Notify Dr. Krishnamurthy if pulse ox is <92% at rest. Problem:Physician Specific Parameters Goal:Patient to maintain parameters within physician-specified ranges throughout certification period Completed Instruct on individual fall risk factors and strategies to prevent falls and injuries caused by falls. Problem:Risk for Falls Goal:Manage Risk for falls Completed OT: Patient and Caregiver instructed on Eliminating Environmental Hazards: Keep pathways clear, Keep pets out of pathways, Keep rooms and walkways well lit, Wear supportive shoes or non-skid socks and Keep frequently used items within reach and managing Pain Instruct on pain and instruct on strategies to control pain Problem:Pain Goal:Manage Pain Completed patient and caregiver instructed on techniques to control pain including Pharmacological measures and Non-Pharmacological measures; rest and positioning/elevation. Monitor lower extremities for skin lesions and educate on proper foot care Problem:Diabetic Foot Care Goal:Manage diabetic foot care Completed patient and caregiver instructed on diabetic foot care including daily skin inspection, wearing proper footwear/avoiding going barefoot, wash/dry feet thoroughly and applying moisturizer, avoiding between toes. Instruct on ongoing discharge plan Problem:Discharge Goal:Manage discharge planning Completed Ongoing Discharge plan: Discharge plan discussed with patient and caregiver including frequency and duration for home OT and plan for transition to: caregiver assistance. Instruct and educate on knowledge deficits Problem:OT Learning Assessment Goal:Demonstrate understanding of education Completed Education methods include: verbal cues. Patient/Caregiver require further education to improve knowledge and compliance with fall prevention strategies, pain management, balance training, home safety, infection control precautions, functional adl/iadl activity, endurance training and discharge planning. ADL/IADLs Training Problem:OT ADLs/IADLs Goal:Improved ADLs/IADLs performance Completed Instruct patient and caregiver on energy conservation and safety and falls prevention and no adaptive equipment use to facilite improved performance of lower body dressing with supervision or setup assistance and few verbal cues. Pt. required setup of supplies, Pt. requires Supervision for LB dressing seated and standing clothing management, Pt. demo fair stand balance unsupported. Balance Training Problem:OT Balance Goal:Improved Balance Completed Pt. demo fair- stand balance with 1 U support with walker use, no LOB, Supervision for safety with a standing tolerance of 3-5 minutes with seated rest breaks for decreased fall risk/increased indepenedence of daily functional tasks. [facility] Visit Details Visit Type -SN DISC DC W VIS IT Discipline -Fpc Problems Problem Description Start Date Status Goals Interve ntions Medication Education Disciplines: Skilled Services 12/06/2024 Active 1 goal linked to scheduled/docume nted intervention 1 goal intervention scheduled/documen scooter in this visit Sepsis Disciplines: Skilled Services 12/06/2024 Resolved on 12/25/2024 1 goal linked to scheduled/docume nted intervention 1 goal intervention scheduled/documen scooter in this visit Risk for skin breakdown Disciplines: Skilled Services 12/06/2024 Resolved on 12/25/2024 1 goal linked to scheduled/docume nted intervention 1 goal intervention scheduled/documen scooter in this visit Physician Specific Parameters Disciplines: Skilled Services 12/06/2024 Active 1 goal linked to scheduled/docume nted intervention 1 goal intervention scheduled/documen scooter in this visit Risk for Falls Disciplines: Skilled Services 12/06/2024 Active 1 goal linked to scheduled/docume nted intervention 1 goal intervention scheduled/documen scooter in this visit Pain Disciplines: Skilled Services 12/06/2024 Active 1 goal linked to scheduled/docume nted intervention 1 goal intervention scheduled/documen scooter in this visit Diabetic Foot Care Disciplines: Skilled Services 12/06/2024 Active 1 goal linked to scheduled/docume nted intervention 1 goal intervention scheduled/documen scooter in this visit Nutrition/Hydration Disciplines: Skilled Services 12/06/2024 Active 1 goal linked to scheduled/docume nted intervention 1 goal intervention scheduled/documen scooter in this visit High Risk Medications Disciplines: Skilled Services 12/06/2024 Active 1 goal linked to scheduled/docume nted intervention 2 goal interventions scheduled/documen scooter in this visit Discharge Disciplines: Skilled Services 12/06/2024 Active 1 goal linked to scheduled/docume nted intervention 2 goal interventions scheduled/documen scooter in this visit SN Diabetes Disciplines: SN 12/06/2024 Resolved on 12/25/2024 1 goal linked to scheduled/docume nted intervention 2 goal interventions scheduled/documen scooter in this visit SN Cardiovascular Condition Disciplines: SN 12/06/2024 Resolved on 12/25/2024 1 goal linked to scheduled/docume nted intervention 1 goal intervention scheduled/documen scooter in this visit SN Learning Assessment Disciplines: SN 12/06/2024 Resolved on 12/25/2024 1 goal linked to scheduled/docume nted intervention 1 goal intervention scheduled/documen scooter in this visit SN Genitourinary disease process Disciplines: SN 12/06/2024 Resolved on 12/25/2024 1 goal linked to scheduled/docume nted intervention 1 goal intervention scheduled/documen scooter in this visit SN Gastrointestinal Disciplines: SN 12/06/2024 Resolved on 12/25/2024 1 goal linked to scheduled/docume nted intervention 1 goal intervention scheduled/documen scooter in this visit Goals Goal Associated Problem Outcome Goal Met? Visit Notes Patient/caregiver will demonstrate ability to obtain, store, identify and administer ordered medications, keep accurate medication list in home, and adhere to medication schedule Description: Patient/caregiver will demonstrate ability to obtain, store, identify and administer ordered medications, keep accurate medication list in home, and adhere to medication schedule by 02/03/25. Medication Education No Patient/caregiver will be able to identify and report symptoms of sepsis Description: Patient/caregiver will be able to identify signs/symptoms of sepsis infection and will verbalize actions to take if suspected by 02/03/25. Sepsis Completed Yes Manage risk for skin breakdown Description: Patient/caregiver will verbalize and demonstrate understanding of the risks and measures to be taken to monitor and prevent skin breakdown by 02/03/25. Risk for skin breakdown Completed Yes Patient to maintain parameters within physician-specified ranges throughout certification period Physician Specific Parameters No Manage Risk for falls Description: Patient/caregiver will verbalize knowledge of individualized fall prevention strategies by 02/03/25. Risk for Falls No Manage Pain Description: Patient/caregiver will verbalize knowledge and understanding of appropriate techniques to control pain, including non-pharmacological techniques. Patient will verbalize or demonstrate an acceptable level of pain as evidenced by a pain score of 0/10 and improvement in ability to perform activities of daily living to be achieved by 02/03/25. Pain No Manage diabetic foot care Description: Patient/caregiver will demonstrate basic understanding of and compliance with diabetic self-care management as evidenced by verbalizing purpose of daily foot care and assessment by 02/03/25. Diabetic Foot Care No Manage Nutrition/Hydration Description: Patient/caregiver will verbalize/demonstrate knowledge of prescribed diet and/or healthy nutrition to be achieved by 02/03/25. Nutrition/Hydration No Patient/caregiver will teach back high risk medication side effect and precaution education Description: STG Patient/caregiver will verbalize understanding of high risk medication side effects and precautions to be achieved by 02/03/25. LTG Patient/caregiver will continue to verbalize understanding of high risk medication side effects and precautions throughout certification period. High Risk Medications No Manage discharge planning Description: Patient/caregiver will verbalize understanding of ongoing discharge plan provided related to disease management, arrangements for outpatient and/or community services, obtaining medications, supplies, and DME, as needed throughout certification period. Discharge No Improved management of diabetes Description: Improve diabetic management as evidenced by patient/caregiver able to teach back diabetic management strategies by 12/25/24. SN Diabetes Completed Yes Improved management of cardiovascular disease Description: Improve patient/caregiver management of cardiac disease as evidenced by patient/caregiver ability to teach back cardiac management strategies by 12/25/24. SN Cardiovascular Condition Completed Yes Demonstrate understanding of education Description: Patient and/or caregiver will verbalize understanding of educational instruction provided throughout certification period. SN Learning Assessment Completed Yes Patient/Caregiver will verbalize understanding and demonstrate improved management of genitourinary disease/condition. Description: Patient/Caregiver will state understanding of genitourinary disease/condition and be able to teach back management strategies by 12/25/24. SN Genitourinary disease process Completed Yes Improved management of GI disease/condition Description: Patient/Caregiver will demonstrate understanding of GI education as evidenced by improved management of gastrointestinal disease/condition by 12/25/24. SN Gastrointestinal Completed Yes Interventions Intervention Associated Problem/Goal Status Variance Visit Notes Medication Education Description: Evaluate/instruct patient/caregiver on obtaining, storing, identifying and administering ordered medications as well as keeping accurate medication list in the home and adhereing to medication schedule Problem:Medication Education Goal:Patient/caregiver will demonstrate ability to obtain, store, identify and administer ordered medications, keep accurate medication list in home, and adhere to medication schedule Completed Patient and Caregiver instructed on importance of keeping accurate medication list in home, need to take up-to-date medication list to all medical provider appointments, adhering to medication schedule and proper storage of medications. Risk of Sepsis Description: Patient is at risk for sepsis. Monitor closely for s/s of sepsis. Problem:Sepsis Goal:Patient/caregiver will be able to identify and report symptoms of sepsis Completed Instruct on the risks and measures to be taken to prevent skin breakdown Description: Patient's Trey Score is: 15. A Trey score <= to 18 indicates risk for skin breakdown. Problem:Risk for skin breakdown Goal:Manage risk for skin breakdown Completed patient and caregiver instructed on maintaining skin integrity including: The need for every 1-2 hour turns, position changes, and maintaining activity as tolerated, Reducing risk of friction and shear, including use of draw sheet as appropriate, Elevating and protecting heels, Incontinence care, Inspecting bony prominences and Routine skin care Evaluation for pressure reduction surfaces completed for bed and chair . SPO2 Description: Notify Dr. Krishnamurthy if pulse ox is <92% at rest. Problem:Physician Specific Parameters Goal:Patient to maintain parameters within physician-specified ranges throughout certification period Completed Instruct on individual fall risk factors and strategies to prevent falls and injuries caused by falls. Problem:Risk for Falls Goal:Manage Risk for falls Completed SN: Patient and Caregiver instructed on Eliminating Environmental Hazards: Keep pathways clear, Move furniture from pathways, Keep rooms and walkways well lit and Wear supportive shoes or non-skid socks Instruct on pain and instruct on strategies to control pain Problem:Pain Goal:Manage Pain Completed patient and caregiver instructed on techniques to control pain including Pharmacological measures and Non-Pharmacological measures; rest, positioning/elevation , mobility/therapeutic exercise, distraction, breathing/relaxation and use of DME/assistive devices. Monitor lower extremities for skin lesions and educate on proper foot care Problem:Diabetic Foot Care Goal:Manage diabetic foot care Completed patient and caregiver instructed on diabetic foot care including daily skin inspection, wearing proper footwear/avoiding going barefoot, wash/dry feet thoroughly, applying moisturizer, avoiding between toes and toenail care. Define patient s appetite/hydration status and implement strategies to improve compliance with prescribed diet and/or healthy nutrition. Problem:Nutrition/Hydr ation Goal:Manage Nutrition/Hydration Completed reinforced patient and caregiver on implementing strategies to comply with healthy nutrition and adequate hydration Hypoglycemic (including insulin)- educated on high risk medication Problem:High Risk Medications Goal:Patient/caregiver will teach back high risk medication side effect and precaution education Completed patient and caregiver educated on taking medication(s) as prescribed by provider. Do not stop medication or skip/alter doses without speaking with your provider. Discuss medication effectiveness or side effect concerns with your provider and home care team. Check blood sugars and keep log as ordered by provider. Monitor for side effects of hypoglycemia such as increased weakness or shaking, moist skin, sweating, fast heartbeat, dizziness, sudden hunger, confusion, pale skin, numbness in mouth or tongue, irritability, nervousness, unsteadiness, nightmares, bad dreams, and restless sleep. Checking your blood sugar routinely and eating a consistent diabetic diet can help regulate blood sugars and reduce side effects. Anticoagulant- educated on high risk medication Problem:High Risk Medications Goal:Patient/caregiver will teach back high risk medication side effect and precaution education Completed patient and caregiver educated on anticoagulant medication Eliquis Take your medication as instructed and at the same time each day. Do not stop medication or alter doses without speaking with your provider. Discuss medication effectiveness or side effect concerns with your provider and home care team. Discuss all medications you are taking, even [id number] medicines, with your provider and pharmacist since many drugs can interact with anticoagulants. Tell anyone providing medical or dental care that you are taking an anticoagulant. DO NOT STOP your medication even for a minor procedure like dental work without first checking with the provider. If you forget to take a dose, DO NOT take a double dose. Take the missed dose as soon as possible on the same day. DO NOT take a double dose the next day to make up for the missed dose. Watch for signs of abnormal or excessive bleeding and bruising (refer to Bleeding Precautions education). Call your health care provider right away if you suspect something is wrong. Instruct on ongoing discharge plan Problem:Discharge Goal:Manage discharge planning Completed Ongoing Discharge plan: Discharge plan discussed with patient and caregiver including frequency and duration for home SN and plan for transition to: caregiver assistance. Instruct on importance of follow-up appts and continued monitoring with medical provider &/or chronic care clinic Problem:Discharge Goal:Manage discharge planning Completed Education provided on importance of compliance with follow-up appointment(s). Recommendations: patient/caregiver to follow up with scheduling appointment(s) for post-acute/primary care provider/chronic care clinic Instruct on diabetes disease process and management of chronic condition Description: Patient has needs for education of diabetes. Problem:SN Diabetes Goal:Improved management of diabetes Completed patient and caregiver assessed and reinforced on diabetes disease process, diet education, how to carb count and recogonizing s/s of hypoglycemia and hyperglycemia as found in the diabetes self-care booklets. Ensure patient/caregiver has Living with Diabetes Booklet in home Description: SN to provide and refer to diabetes education booklet every visit. Problem:SN Diabetes Goal:Improved management of diabetes Completed Patient has diabetes self-care booklet. Instruct on cardiovascular disease process and management of condition Description: Patient has following cardiac diagnosis(es): Hypertension. Problem:SN Cardiovascular Condition Goal:Improved management of cardiovascular disease Completed patient and caregiver instructed on cardiac disease process, self monitoring & symptom reporting and Cardiac Diet. Instruct and educate on knowledge deficits Problem:SN Learning Assessment Goal:Demonstrate understanding of education Completed patient and caregiver verbalize and/or demonstrate understanding of nursing education completed today. Education methods include: verbal cues and teach back. Further education required to improve knowledge and compliance with diabetic care management, fall prevention/home safety strategies and medication management. Incontinence- Instruct Patient/Caregiver on measures to manage urinary incontinence Problem:SN Genitourinary disease process Goal:Patient/Caregiver will verbalize understanding and demonstrate improved management of genitourinary disease/condition. Completed patient and caregiver instructed on measures to manage Urinary incontinence including: use of pads/protective garments, pelvic floor exercises, scheduled bathroom trips and bladder training. Incontinence: Instruct Patient/Caregiver on measures to manage bowel incontinence Problem:SN Gastrointestinal Goal:Improved management of GI disease/condition Completed patient and caregiver instructed on the following measures to manage bowel incontinence: bowel training, perineal skin care, use of moisture barrier and use of incontinence pads/briefs. documented in this encounter [facility] home Plan of care note* Visit Details Visit Type -OT DISC DC W VIS IT Discipline -Occupational Therapy Problems Problem Description Start Date Status Goals Interve ntions Medication Education Disciplines: Skilled Services 12/06/2024 Active 1 goal linked to scheduled/documen scooter intervention 1 goal intervention scheduled/document ed in this visit Physician Specific Parameters Disciplines: Skilled Services 12/06/2024 Active 1 goal linked to scheduled/documen scooter intervention 1 goal intervention scheduled/document ed in this visit Risk for Falls Disciplines: Skilled Services 12/06/2024 Active 1 goal linked to scheduled/documen scooter intervention 1 goal intervention scheduled/document ed in this visit Pain Disciplines: Skilled Services 12/06/2024 Active 1 goal linked to scheduled/documen scooter intervention 1 goal intervention scheduled/document ed in this visit Diabetic Foot Care Disciplines: Skilled Services 12/06/2024 Active 1 goal linked to scheduled/documen scooter intervention 1 goal intervention scheduled/document ed in this visit High Risk Medications Disciplines: Skilled Services 12/06/2024 Active 1 goal linked to scheduled/documen scooter intervention 1 goal intervention scheduled/document ed in this visit Discharge Disciplines: Skilled Services 12/06/2024 Active 1 goal linked to scheduled/documen scooter intervention 1 goal intervention scheduled/document ed in this visit OT Learning Assessment Disciplines: OT 12/10/2024 Resolved on 12/31/2024 1 goal linked to scheduled/documen scooter intervention 1 goal intervention scheduled/document ed in this visit OT ADLs/IADLs Disciplines: OT 12/10/2024 Resolved on 12/31/2024 1 goal linked to scheduled/documen scooter intervention 1 goal intervention scheduled/document ed in this visit OT Upper Body Strength and/or ROM Disciplines: OT 12/10/2024 Resolved on 12/31/2024 1 goal linked to scheduled/documen scooter intervention 1 goal intervention scheduled/document ed in this visit OT Functional Transfers Disciplines: OT 12/10/2024 Resolved on 12/31/2024 1 goal linked to scheduled/documen scooter intervention 1 goal intervention scheduled/document ed in this visit OT Balance Disciplines: OT 12/10/2024 Resolved on 12/31/2024 1 goal linked to scheduled/documen scooter intervention 1 goal intervention scheduled/document ed in this visit Goals Goal Associated Problem Outcome Goal Met? Visit Notes Patient/caregiver will demonstrate ability to obtain, store, identify and administer ordered medications, keep accurate medication list in home, and adhere to medication schedule Description: Patient/caregiver will demonstrate ability to obtain, store, identify and administer ordered medications, keep accurate medication list in home, and adhere to medication schedule by 02/03/25. Medication Education No Patient to maintain parameters within physician-specified ranges throughout certification period Physician Specific Parameters No Manage Risk for falls Description: Patient/caregiver will verbalize knowledge of individualized fall prevention strategies by 02/03/25. Risk for Falls No Manage Pain Description: Patient/caregiver will verbalize knowledge and understanding of appropriate techniques to control pain, including non-pharmacological techniques. Patient will verbalize or demonstrate an acceptable level of pain as evidenced by a pain score of 0/10 and improvement in ability to perform activities of daily living to be achieved by 02/03/25. Pain No Manage diabetic foot care Description: Patient/caregiver will demonstrate basic understanding of and compliance with diabetic self-care management as evidenced by verbalizing purpose of daily foot care and assessment by 02/03/25. Diabetic Foot Care No Patient/caregiver will teach back high risk medication side effect and precaution education Description: STG Patient/caregiver will verbalize understanding of high risk medication side effects and precautions to be achieved by 02/03/25. LTG Patient/caregiver will continue to verbalize understanding of high risk medication side effects and precautions throughout certification period. High Risk Medications No Manage discharge planning Description: Patient/caregiver will verbalize understanding of ongoing discharge plan provided related to disease management, arrangements for outpatient and/or community services, obtaining medications, supplies, and DME, as needed throughout certification period. Discharge No Demonstrate understanding of education Description: Patient and/or caregiver will understand educational instruction to be achieved by 01/04/25. OT Learning Assessment Completed Yes goal met Improved ADLs/IADLs performance Description: patient will verbalize understanding of instructions and demonstrate improved performance of lower body dressing to supervision or setup assistance as evidenced by improved Minerva ADL Index score to at least 40 to be achieved by 01/04/25. OT ADLs/IADLs Completed Yes goal met Improved Strength and/or ROM Description: caregiver will verbalize/demonstrate independence with home exercise program, to improve functional performance, to be achieved by 01/04/25. OT Upper Body Strength and/or ROM Completed Yes goal met Improved Functional Transfers Description: patient will demonstrate safe transfers to/from toilet and shower/tub with supervision assistance and no verbal cues with use of DME to be achieved by 01/04/25. OT Functional Transfers Completed Yes goal particially met. Pt continues to require CGA for tub/shower transfer. ETB was recommended and family to follow up on as insurance will cover. Improved Balance Description: Patient will demonstrate improved standing balance to meet functional goals as evidenced by ability to stand for 3-5 minutes to be achieved by 01/04/25. OT Balance Completed Yes goal met Interventions Intervention Associated Problem/Goal Status Variance Visit Notes Medication Education Description: Evaluate/instruct patient/caregiver on obtaining, storing, identifying and administering ordered medications as well as keeping accurate medication list in the home and adhereing to medication schedule Problem:Medication Education Goal:Patient/caregive r will demonstrate ability to obtain, store, identify and administer ordered medications, keep accurate medication list in home, and adhere to medication schedule Completed Caregiver instructed on adhering to medication schedule. SPO2 Description: Notify Dr. Krishnamurthy if pulse ox is <92% at rest. Problem:Physician Specific Parameters Goal:Patient to maintain parameters within physician-specified ranges throughout certification period Completed Instruct on individual fall risk factors and strategies to prevent falls and injuries caused by falls. Problem:Risk for Falls Goal:Manage Risk for falls Completed OT: Caregiver instructed on Eliminating Environmental Hazards: Keep pathways clear, Keep pets out of pathways, Keep rooms and walkways well lit and Keep frequently used items within reach Instruct on pain and instruct on strategies to control pain Problem:Pain Goal:Manage Pain Completed caregiver instructed on techniques to control pain including Non-Pharmacological measures; positioning/elevation and use of thermal modalities, apply ice to affected area for the following prescribed frequency: prn for pain. Monitor lower extremities for skin lesions and educate on proper foot care Problem:Diabetic Foot Care Goal:Manage diabetic foot care Completed patient and caregiver instructed on diabetic foot care including daily skin inspection and wash/dry feet thoroughly. Anticoagulant- educated on high risk medication Problem:High Risk Medications Goal:Patient/caregive r will teach back high risk medication side effect and precaution education Completed patient educated on anticoagulant medication Eliquis Take your medication as instructed and at the same time each day. Do not stop medication or alter doses without speaking with your provider. Discuss medication effectiveness or side effect concerns with your provider and home care team. Discuss all medications you are taking, even spxi-lfx-xwizvys medicines, with your provider and pharmacist since many drugs can interact with anticoagulants. Tell anyone providing medical or dental care that you are taking an anticoagulant. DO NOT STOP your medication even for a minor procedure like dental work without first checking with the provider. If you forget to take a dose, DO NOT take a double dose. Take the missed dose as soon as possible on the same day. DO NOT take a double dose the next day to make up for the missed dose. Watch for signs of abnormal or excessive bleeding and bruising (refer to Bleeding Precautions education). Call your health care provider right away if you suspect something is wrong. Instruct on ongoing discharge plan Problem:Discharge Goal:Manage discharge planning Completed Ongoing Discharge plan: Discharge plan discussed with patient and caregiver including frequency and duration for home OT and plan for transition to: caregiver assistance. Instruct and educate on knowledge deficits Problem:OT Learning Assessment Goal:Demonstrate understanding of education Completed Education methods include: verbal cues, tactile cues and visual cues. Patient/Caregiver has received education to improve knowledge and compliance with fall prevention strategies, pain management, balance training, home safety, infection control precautions, functional adl/iadl activity, functional transfers, home exercise program and discharge planning. ADL/IADLs Training Problem:OT ADLs/IADLs Goal:Improved ADLs/IADLs performance Completed Instruct patient and caregiver on compensatory strategies and safety and falls prevention and pressure tank operator use to facilite improved performance of lower body dressing with supervision or setup assistance and verbal cues. Pt scored 55/100 on the Modified minerva index Therapeutic Exercises Problem:OT Upper Body Strength and/or ROM Goal:Improved Strength and/or ROM Completed Instructed patient/caregiver on therapeutic exercise including: upper body exercises: shoulder flexion, shoulder horizontal abduction/adduction, shoulder internal/external rotation, triceps extension, bicep curls, rotating punches, forearm pronation/supination, wrist flexion/extension and wrist abduction/adduction. Fmily has demo Indep with providing instruction to pt. Instructed to perform 1 set of 10 daily. Family to continue to assist with HEP. Transfer Training Problem:OT Functional Transfers Goal:Improved Functional Transfers Completed Instruct patient and caregiver on safe transfers and proper techniques including body positioning to perform to and from toilet with sup and tub/shower with CGA assistance and verbal and tactile cues for safety and balance. ETB has been ordered and insurance has informed CG they will cover but it has not been delivered yet. Balance Training Problem:OT Balance Goal:Improved Balance Completed Pt has been ambulating up and down the driveway sevearl times/day. She has demo 5 minutes of continuous standing. documented in this encounter [facility]'s home Plan of care note* Visit Details Visit Type -PT AGENCY MELISSA FRAZIER Discipline -Physical Therapy Problems Problem Description Start Date Status Goals Interve ntions Medication Education Disciplines: Skilled Services 12/06/2024 Resolved on 01/02/2025 1 goal linked to scheduled/document ed intervention [employer] Referral Disciplines: Skilled Services 12/06/2024 Resolved on 01/02/2025 1 goal linked to scheduled/document ed intervention PT Referral Disciplines: Skilled Services 12/06/2024 Resolved on 01/02/2025 1 goal linked to scheduled/document ed intervention 1 goal intervention scheduled/document ed in this visit Physician Specific Parameters Disciplines: Skilled Services 12/06/2024 Resolved on 01/02/2025 1 goal linked to scheduled/document ed intervention 1 goal intervention scheduled/document ed in this visit Risk for Falls Disciplines: Skilled Services 12/06/2024 Resolved on 01/02/2025 1 goal linked to scheduled/document ed intervention 1 goal intervention scheduled/document ed in this visit Pain Disciplines: Skilled Services 12/06/2024 Resolved on 01/02/2025 1 goal linked to scheduled/document ed intervention 1 goal intervention scheduled/document ed in this visit Diabetic Foot Care Disciplines: Skilled Services 12/06/2024 Resolved on 01/02/2025 1 goal linked to scheduled/document ed intervention Nutrition/Hydrat ion Disciplines: Skilled Services 12/06/2024 Resolved on 01/02/2025 1 goal linked to scheduled/document ed intervention High Risk Medications Disciplines: Skilled Services 12/06/2024 Resolved on 01/02/2025 1 goal linked to scheduled/document ed intervention Discharge Disciplines: Skilled Services 12/06/2024 Resolved on 01/02/2025 1 goal linked to scheduled/document ed intervention PT Impaired muscle performance and/or ROM Disciplines: PT 12/10/2024 Resolved on 01/02/2025 1 goal linked to scheduled/document ed intervention 1 goal intervention scheduled/document ed in this visit PT Impaired mobility Disciplines: PT 12/10/2024 Resolved on 01/02/2025 1 goal linked to scheduled/document ed intervention 1 goal intervention scheduled/document ed in this visit PT Impaired gait Disciplines: PT 12/10/2024 Resolved on 01/02/2025 2 goals linked to scheduled/document ed interventions 2 goal interventions scheduled/document ed in this visit PT Impaired balance Disciplines: PT 12/10/2024 Resolved on 01/02/2025 1 goal linked to scheduled/document ed intervention 1 goal intervention scheduled/document ed in this visit PT Learning Assessment Disciplines: PT 12/10/2024 Resolved on 01/02/2025 1 goal linked to scheduled/document ed intervention 1 goal intervention scheduled/document ed in this visit Goals Goal Associated Problem Outcome Goal Met? Visit Notes Patient/caregiver will demonstrate ability to obtain, store, identify and administer ordered medications, keep accurate medication list in home, and adhere to medication schedule Description: Patient/caregiver will demonstrate ability to obtain, store, identify and administer ordered medications, keep accurate medication list in home, and adhere to medication schedule by 02/03/25. Medication Education Completed Yes Patient will be referred to additional discipline as needed [employer] Referral Completed Yes Patient will be referred to additional discipline as needed PT Referral Completed Yes Patient to maintain parameters within physician-specified ranges throughout certification period Physician Specific Parameters Completed Yes Manage Risk for falls Description: Patient/caregiver will verbalize knowledge of individualized fall prevention strategies by 02/03/25. Risk for Falls Completed Yes Manage Pain Description: Patient/caregiver will verbalize knowledge and understanding of appropriate techniques to control pain, including non-pharmacological techniques. Patient will verbalize or demonstrate an acceptable level of pain as evidenced by a pain score of 0/10 and improvement in ability to perform activities of daily living to be achieved by 02/03/25. Pain Completed Yes Manage diabetic foot care Description: Patient/caregiver will demonstrate basic understanding of and compliance with diabetic self-care management as evidenced by verbalizing purpose of daily foot care and assessment by 02/03/25. Diabetic Foot Care Completed Yes Manage Nutrition/Hydration Description: Patient/caregiver will verbalize/demonstrate knowledge of prescribed diet and/or healthy nutrition to be achieved by 02/03/25. Nutrition/Hydration Completed Yes Patient/caregiver will teach back high risk medication side effect and precaution education Description: STG Patient/caregiver will verbalize understanding of high risk medication side effects and precautions to be achieved by 02/03/25. LTG Patient/caregiver will continue to verbalize understanding of high risk medication side effects and precautions throughout certification period. High Risk Medications Completed Yes Manage discharge planning Description: Patient/caregiver will verbalize understanding of ongoing discharge plan provided related to disease management, arrangements for outpatient and/or community services, obtaining medications, supplies, and DME, as needed throughout certification period. Discharge Completed Yes Improved Muscle Performance and/or ROM Description: LTG: Patient will demonstrate improved muscle performance to meet functional goals as evidenced by ability to tolerate 10-15 minutes of therapeutic activity, to be achieved by 01/04/25. . STG: Patient and/or caregiver will verbalize/demonstrate independence with home exercise program, to improve functional mobility, to be achieved by 12/28/24. PT Impaired muscle performance and/or ROM Completed Yes Improved Transfers Description: LTG: Patient will demonstrate safe transfers to/from bed, chair and car with supervision, to be achieved by 01/04/25. . PT Impaired mobility Completed Yes Improved Stair Climbing Description: LTG: Patient will demonstrate improved stair negotiation as evidenced by ascend/descend 2 steps with walker with sba assistance, to safely access community and exit home, to be achieved by 01/04/25. . PT Impaired gait Completed Yes Improved Gait Description: LTG: Patient will demonstrate improved gait ability as evidenced by ambulation 100 feet with front wheeled walker with supervision, to return to safe household and short community ambulation, in order to return to f, to be achieved by 01/04/25. . PT Impaired gait Completed Yes Improved Balance Description: LTG: Patient will demonstrate improved standing balance to meet functional goals as evidenced by TUG score of 26 w/ww to be achieved by 01/04/25. PT Impaired balance Completed Yes Demonstrate understanding of education Description: Patient and/or caregiver will understand educational instruction to be achieved by 01/04/25. . PT Learning Assessment Completed Yes Interventions Intervention Associated Problem/Goal Status Variance Visit Notes PT evaluation and treatment Description: Evaluate and treat for the assessment of functional deficits and establishment of appropriate interventions and education, including recommendations for functional mobility training, balance training for fall reduction, and strengthening. Problem:PT Referral Goal:Patient will be referred to additional discipline as needed Completed SPO2 Description: Notify Dr. Krishnamurthy if pulse ox is <92% at rest. Problem:Physician Specific Parameters Goal:Patient to maintain parameters within physician-specified ranges throughout certification period Completed Instruct on individual fall risk factors and strategies to prevent falls and injuries caused by falls. Problem:Risk for Falls Goal:Manage Risk for falls Completed PT: Patient instructed on Eliminating Environmental Hazards: Keep pathways clear, Remove unsafe rugs, Move furniture from pathways, Keep rooms and walkways well lit, Install hand rails/grab bars and Wear supportive shoes or non-skid socks Managing Impaired Functional Mobility: Use assistive device(s): front wheeled walker Managing Pain Instruct on pain and instruct on strategies to control pain Problem:Pain Goal:Manage Pain Completed patient instructed on techniques to control pain including Pharmacological measures and Non-Pharmacological measures; rest and positioning/elevation. Physical Therapy Therapeutic Exercises Problem:PT Impaired muscle performance and/or ROM Goal:Improved Muscle Performance and/or ROM Completed patient instructed on strengthening exercises including seated marching x 15 each leg, LAQ x 15 each leg, pillow squeezes x 10, Seated Hip ABD x 15 each leg, Seated Heel/Toe raises x 15 with verbal, visual, and tactile cues for form and quantity. patient instructed to perform home exercise program twice a day which included above exercises. Physical Therapy Transfer Training Problem:PT Impaired mobility Goal:Improved Transfers Completed ALEXANDRO transfers with occ cues for safety Physical Therapy Stair Training Problem:PT Impaired gait Goal:Improved Stair Climbing Completed up and down step with WW and supervision Physical Therapy Gait Training Problem:PT Impaired gait Goal:Improved Gait Completed INDEP amb with WW with steady recip pattern . supervision for outdoor or uneven surfaces Physical Therapy Balance Training Problem:PT Impaired balance Goal:Improved Balance Completed pt demonstrates improved dynamic standing balance as evidecned by a TUG of 24 Instruct and educate on knowledge deficits Problem:PT Learning Assessment Goal:Demonstrate understanding of education Completed patient verbalize and/or demonstrate understanding of physical therapy education including fall prevention strategies, home safety, functional activity and home exercise program. Education methods include: verbal cues and written instructions. documented in this encounter [facility] for referral (narrative)* Diagnostic Procedure Only (Routine) - Closed Specialty Diagnoses / Procedures Referred By Contac t Referred To Contact XR IMAGING Diagnoses Cervical spinal stenosis Procedures XR CERV OTHER 4V AP/LAT/FLX/EXT RADEX SPINE CERVICAL 4 OR 5 VIEWS John Doan MD [address] [facility] [place] [address] [place] [address] Referral ID Status Reason Start Date Expiration Date V isits Requested Visits Authorized [id number] Closed Auto-Generate d Referral 04/30/2024 05/30/2025 1 1 * Diagnostic Procedure Only (Routine) - Closed Specialty Diagnoses / Procedures Referred By Contac t Referred To Contact XR IMAGING Diagnoses Lumbar spondylosis Procedures XR SCOLIOSIS PA STAND/LAT 2V RADEX ENTIR THRC LMBR CRV SAC SPI W/SKULL 2/3 VW John Doan MD [address] [facility] [address] [place] [address] Referral ID Status Reason Start Date Expiration Date V isits Requested Visits Authorized [id number] Closed Auto-Generate d Referral 04/30/2024 05/30/2025 1 1 [facility] for visit Narrative* Diagnostic Procedure Only (Routine) - Closed Specialty Diagnoses / Procedures Referred By Contac t Referred To Contact XR IMAGING Diagnoses Cervical spinal stenosis Procedures XR CERV OTHER 4V AP/LAT/FLX/EXT RADEX SPINE CERVICAL 4 OR 5 VIEWS John Doan MD [address] [facility] [address] [place] [address] Referral ID Status Reason Start Date Expiration Date V isits Requested Visits Authorized [id number] Closed Auto-Generate d Referral 04/30/2024 05/30/2025 1 1 [facility] Summary Purpose Family History No Family History Records FoundNo Family History Records FoundThere may be information available, but it has not been provided by the sender.No Family History Records FoundNo Family History Records FoundNo Family History Records FoundNo Family History Records Found Advance Directives No Advanced Directives Records FoundDocuments on File Type Date Recorded Patient Material Coordinator Expl anation Advance Directives and Living Will Power of Chuck Splitter Latest Code Status on File Code Status Date Activated Date Inactivated Comments Full Code 03/26/2020 2:49 AM Full Code 02/17/2019 10:48 AM 02/20/2019 5:59 PM Full Code 02/16/2019 10:33 AM 02/17/2019 10:48 AM Full Code 04/15/2018 5:43 PM 04/18/2018 8:51 PM Full Code 03/09/2017 7:39 PM 03/15/2017 5:21 PM Date Activated Date Inactivated Comments 11/18/2024 12:16 PM 11/19/2024 1:28 PM Question Answer Comments ICU transfer: Yes Intubation: Yes Date Activated Date Inactivated Comments 11/11/2024 11:08 PM 11/18/2024 12:16 PM Date Activated Date Inactivated Comments 12/06/2024 10:07 PM Hospital Course Note Internal Medicine Residency Program Discharge Summary from Hospital / ER / Consult Margarita Betancourt : 1940 Admit Date: 07/31/2018 11:00 PM Discharge Date: 08/06/2018 Admission Diagnosis: confusion Discharge Diagnosis: Active Problems: Bilateral lower extremity edema Edema of both legs Resolved Problems: * No resolved hospital problems. * edema legs sec chronic dvt Venous insufficiency Hospital Course: uti treated Pertinent Results during this Hospital Course: uti Consults: None Procedures:iv antibiotics Discharge Medications: Margarita Betancourt Home Medication Instructions PIETER:[id number] Printed on:08/06/18 09 Medication Information acetaminophen (TYLENOL) 325 MG tablet Take 2 tablets by mouth every 4 hours as needed (pain) amLODIPine (NORVASC) 5 MG tablet Take 5 mg by mouth daily cefdinir (OMNICEF) 300 MG capsule Take 1 capsule by mouth 2 times daily for 10 doses citalopram (CELEXA) 40 MG tablet Take 1 tablet by mouth daily insulin glargine (LANTUS) 100 UNIT/ML inject (more content not included)... Discharge Instructions * Discharge Instr - Activity* Murtaza Buckley DO - 03/27/2020 11:12 AM EDT As tolerated * Discharge Instr - Diet* Murtaza Buckley DO - 03/27/2020 11:13 AM EDT ? Good nutrition is important when healing from an illness, injury, or surgery. Follow any nutrition recommendations given to you during your hospital stay. ? If you were given an oral nutrition supplement while in the hospital, continue to take this supplement at home. You can take it with meals, in-between meals, and/or before bedtime. These supplements can be purchased at most local grocery stores, pharmacies, and chain [employer]stores. ? If you have any questions about your diet or nutrition, call the hospital and ask for the dietitian. * Discharge Instr - Lab* Mita Burnette RN - 03/26/2020 12:28 PM EDT Your physician has ordered skilled home care services for you. Your home care will be provided by: [facility] [phone] * Additional Instructions* Murtaza Buckley DO - 03/27/2020 PNEUMONIA SIGNS AND SYMPTOMS GREEN ZONE: All Clear- Your Symptoms Are Under Control Cough, wheezing, chest tightness that continues to improve No fever Able to do usual activities No chest pain This Means You Should: Continue taking your medications as prescribed Continue activity as tolerated Keep all doctors appointments YELLOW ZONE: Caution as Your Health may be Worsening Fever of 100 degrees or higher Increased cough, wheezing, or shortness of breath with activity Phlegm that increases in amount or changes color/becomes thicker Increased fatigue or restlessness Intolerant side-effects of medications Uneasy feeling or that something is wrong This Means You Should: Call your doctor for further instructions RED ZONE: Medical Alert Severe or unrelieved shortness of breath at rest Unrelieved chest pain Confusion or you can't think clearly This Means You Should Call 911 Immediately documented in this encounter History of Present Illness * Rex Turner RCP - 03/27/2020 4:04 PM EDT [facility] Respiratory Care Department Progress Note SpO2 at rest on RA = 94% HR at rest = 77 SpO2 with ambulation on RA = 91% Peak HR = 88 Qualify for home O2 Y/N = NO * Aurea Marques OT - 03/27/2020 2:25 PM EDT Occupational Therapy Occupational Therapy Initial Assessment Date: 03/27/2020 Patient Name: Margarita Betancourt : 1940 Date of Service: 03/27/2020 Discharge Recommendations: Continue to assess pending progress, Subacute/Fpc Facility OT Equipment Recommendations Equipment Needed: No Assessment Performance deficits / Impairments: Decreased functional mobility ;Decreased strength;Decreased endurance;Decreased ADL status;Decreased safe awareness;Decreased high-level IADLs;Decreased cognition;Decreased balance Assessment: Pt is an 80 yo female admitted to [facility] with AMS and SOB, found to have PNA. 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 Pt is now at a MIN-MOD A level and is at risk for further decline d/t O2 desaturation with increased activity, decreased balance, overall weakness/fatigue, and impaired cognition. Pt is expected to benefit from further acute OT skilled services to increase indep and safety needed for least restrictive discharge plan. Prognosis: Good History: Pt's history significant for dementia, DM, hip fx 2019, and HTN. Detailed PMH is listed below. Exam: AM PAC Assistance / Modification: MIN A OT Education: OT Role;Plan of Care;Transfer Training;Equipment Barriers to Learning: Cog noted REQUIRES OT FOLLOW UP: Yes Activity Tolerance Activity Tolerance: Treatment limited secondary to decreased cognition Safety Devices Safety Devices in place: Yes Type of devices: All fall risk precautions in place;Left in bed;Bed alarm in place;Call light within reach;Gait belt;Nurse notified;Patient at risk for falls Patient Diagnosis(es): The primary encounter diagnosis was Pneumonia due to organism. Diagnoses of Febrile illness and Altered mental status, unspecified altered mental status type were also pertinent to this visit. 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 has a past surgical history that includes joint replacement; Hysterectomy; and Hip fracture surgery(Right, 02/17/2019). Restrictions Restrictions/Precautions Restrictions/Precautions: General Precautions, Fall Risk, Isolation(droplet - rhinovirus, 2L O2, bed alarm) Required Braces or Orthoses?: No Subjective General Chart Reviewed: Yes Patient assessed for rehabilitation services?: Yes Family / Caregiver Present: No Subjective Subjective: Per RN, pt ok to see. Pt pleasant and cooperative, in bed on arrival, agreeable to OT eval. Patient Currently in Pain: Denies Vital Signs Patient Currently in Pain: Denies Oxygen Therapy SpO2: (!) 85 % O2 Device: None (Room air) Social/Functional History Social/Functional History Lives With: Son, Family(and daughter in law) Type of Home: House Home Layout: One level Home Access: Stairs to enter without rails Entrance Stairs - Number of Steps: 1 Bathroom Shower/Tub: Tub/Shower unit Bathroom Toilet: Standard Bathroom Equipment: 3-in-1 commode, Grab bars in shower Bathroom Accessibility: Accessible Home Equipment: Rolling walker, Wheelchair-manual, Hospital bed Receives Help From: Family ADL Assistance: Needs assistance(Daughter in law assists PRN) Homemaking Assistance: Needs assistance Homemaking Responsibilities: No Ambulation Assistance: Independent(without AD) Transfer Assistance: Independent Active Claims Supervisor: No Patient's Claims Supervisor Info: Family Mode of Transportation: Car Occupation: Retired Additional Comments: Above information was obtained by CM. Pt reports she is independent with al ADLs and uses/owns no devices for mobility Objective Vision: Within Functional Limits Hearing: Within functional limits Orientation Overall Orientation Status: Impaired Orientation Level: Oriented to person;Oriented to place;Oriented to situation;Disoriented to time Observation/Palpation Posture: Fair Observation: incontinent of urine, 2L O2 - okay to trial room air per RN, SpO2 85-97% on room air with mobility (RN made aware), IV site bleeding end of session and RN in room to address Balance Sitting Balance: Independent Standing Balance: Contact guard assistance(CGA without AD, SBA with fww) Functional Mobility Functional - Mobility Device: Rolling Walker Activity: To/from bathroom Assist Level: Stand by assistance Functional Mobility Comments: Initially without AD, multiple LOB requiring MIN A to correct. With use of fww to/from bathroom, SBA and increased steadiness noted, required cueing for fww safety. Pt does not typically wear O2 at home, ok per RN to doff for mobility purposes. Following initial trial without AD, SpO2 checked and ~87%, returned WFL with short seated rest break. Following x 2 trial with fww, O2 dropping to ~85%, returned WFL with short seated rest break. RN made aware. ADL Feeding: Independent Grooming: Supervision UE Bathing: Supervision LE Bathing: Moderate assistance UE Dressing: Supervision LE Dressing: Moderate assistance Toileting: Moderate assistance Bed mobility Supine to Sit: Moderate assistance(Assist for trunk mgmt to upright position with use of bed rail) Sit to Supine: Stand by assistance(with increased time) Scooting: Moderate assistance;Maximal assistance(MOD A with use of draw pad to EOB, MAX A to HOB) Comment: Denies dizziness with change in position Transfers Sit to stand: Contact guard assistance;Stand by assistance Stand to sit: Contact guard assistance;Stand by assistance Transfer Comments: Multiple trials, x 1 trial without AD and CGA, x 2 trial with fww and SBA overall Cognition Overall Cognitive Status: Exceptions Arousal/Alertness: Appropriate responses to stimuli Following Commands: Follows one step commands with repetition Attention Span: Attends with cues to redirect Memory: Decreased recall of precautions;Decreased recall of recent events;Decreased short term memory Safety Judgement: Decreased awareness of need for assistance;Decreased awareness of need for safety Problem Solving: Assistance required to generate solutions;Assistance required to implement solutions;Assistance required to identify errors made;Assistance required to correct errors made;Decreased awareness of errors Insights: Decreased awareness of deficits Initiation: Requires cues for some Sequencing: Requires cues for some Cognition Comment: h/o dementia Sensation Overall Sensation Status: WFL(Denies numbness/tingling) LUE AROM (degrees) LUE AROM : WFL RUE AROM (degrees) RUE AROM : WFL LUE Strength Gross LUE Strength: WFL RUE Strength Gross RUE Strength: WFL Plan Plan Times per week: 4 visits Current Treatment Recommendations: Strengthening, ROM, Balance Training, Safety Education & Training, Self-Care / ADL, Cognitive/Perceptual Training, Equipment Evaluation, Education, & procurement, Endurance Training, Functional Mobility Training, Cognitive Reorientation, Patient/Caregiver Education & Training, Home Management Training Plan Comment: Goals and POC made in collaboration with pt. Patient's occupational therapy plan of care supervision is transferred to Inpatient Therapy Services Department occupational therapist. AM-PAC Score AM-PAC Inpatient Daily Activity Raw Score: 16 (03/27/20 1425) AM-PAC Inpatient ADL T-Scale Score : 35.96 (03/27/20 1425) ADL Inpatient CMS 0-100% Score: 53.32 (03/27/20 142) ADL Inpatient [facility] G-Code Modifier : CK (03/27/20 1425) Goals Short term goals Time Frame for Short term goals: 4 visits Short term goal 1: Pt will complete full body ADLs with setup/SUPV Short term goal 2: Pt will complete toileting including transfer with SUPV Short term goal 3: Pt will complete functional transfers and mobility with SUPV and use of fww Short term goal 4: Pt will complete functional standing during ADL routine for >10 minutes with SUPV and use of fww Patient Goals Patient goals : To increase indep in ADL routine Therapy Time Individual Concurrent Group Co-treatment Time In 1132(Co-eval with PT) Time Out 1157 Minutes 25 Aurea Marques OT * Cristine Ritter, PT - 03/27/2020 1:49 PM EDT Physical Therapy Facility/Department: [facility] Initial Assessment NAME: Margarita Betancourt : 1940 Date of Service: 03/27/2020 Discharge Recommendations: (Facility Based Therapy) PT Equipment Recommendations Other: TBD at next level of care, if pt/family choose to go home with [facility] PT - pt will require FWW and 24 hour assist Assessment Body structures, Functions, Activity limitations: Decreased functional mobility ;Decreased strength;Decreased safe awareness;Decreased cognition;Decreased endurance;Decreased balance Assessment: Pt presents with decreased functional mobility, decreased strength, decreased safety awareness/cognition, decreased endurance and impaired balance. Pt has decreased standing balance and decreased SpO2 with minimal exertion placing her at a high risk of falling. Pt could benefit from skilled PT in order to address her decreased functional mobility, strength, balance and safety. Prognosis: Good Decision Making: Medium Complexity History: Pt admitted with altered mental status, SOB, cought and fever, found to have PNA. Exam: AM-PAC Clinical Presentation: Pt admitted with altered mental status, SOB, cought and fever, found to havePNA. Pt has medical history as indicated above that contributes to her clinical presentation. At baseline patient is functionally independent without a device and no home O2. Currently patient is unsafe to return home secondary to her increased need for assist and fall risks with mobility. PT Education: Goals;Transfer Training;PT Role;Plan of Care;Energy Conservation;General Safety;Equipment;Adaptive Device Training;Gait Training;Functional Mobility Training;Injury Prevention Patient Education: recommendation for rehab Barriers to Learning: Pt has h/o dementia which may impact her ability to learn. REQUIRES PT FOLLOW UP: Yes Activity Tolerance Activity Tolerance: Patient limited by endurance;Patient limited by fatigue Patient Diagnosis(es): The primary encounter diagnosis was Pneumonia due to organism. Diagnoses of Febrile illness and Altered mental status, unspecified altered mental status type were also pertinent to this visit. 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 has a past surgical history that includes joint replacement; Hysterectomy; and Hip fracture surgery(Right, 02/17/2019). Restrictions Restrictions/Precautions Restrictions/Precautions: General Precautions, Fall Risk, Isolation(bed alarm, monitor O2, Droplet precautions - Rhinovirus) Required Braces or Orthoses?: No Vision/Hearing Vision: Within Functional Limits Hearing: Within functional limits Subjective General Chart Reviewed: Yes Patient assessed for rehabilitation services?: Yes Family / Caregiver Present: No General Comment Comments: Per RN patient okay for therapy. Co-eval with OT. Subjective Subjective: Pt pleasantly confused and agreeable to therapy. Pain Screening Patient Currently in Pain: Denies Vital Signs Patient Currently in Pain: Denies Oxygen Therapy SpO2: (!) 85 % O2 Device: None (Room air) Orientation Orientation Overall Orientation Status: Impaired Orientation Level: Oriented to place;Oriented to situation;Oriented to person;Disoriented to time Social/Functional History Social/Functional History Lives With: Family Type of Home: House Home Layout: One level Home Access: Stairs to enter without rails Entrance Stairs - Number of Steps: 1 Bathroom Shower/Tub: Tub/Shower unit Bathroom Toilet: Handicap height Bathroom Equipment: 3-in-1 commode, Grab bars in shower Bathroom Accessibility: Accessible Home Equipment: Rolling walker, Wheelchair-manual, Hospital bed(Nebulizer/glucometer) Receives Help From: Family ADL Assistance: Needs assistance Homemaking Assistance: Needs assistance Ambulation Assistance: Independent Transfer Assistance: Independent Active Claims Supervisor: No Patient's Claims Supervisor Info: Family Mode of Transportation: Car Occupation: Retired Additional Comments: Above information was obtained by CM. Pt reports she is independent with al ADLs and uses/owns no devices for mobility Cognition Cognition Overall Cognitive Status: Exceptions Arousal/Alertness: Appropriate responses to stimuli Following Commands: Follows one step commands with repetition Attention Span: Attends with cues to redirect Memory: Decreased recall of precautions;Decreased recall of recent events;Decreased short term memory Safety Judgement: Decreased awareness of need for assistance;Decreased awareness of need for safety Problem Solving: Assistance required to generate solutions;Assistance required to implement solutions;Assistance required to identify errors made;Assistance required to correct errors made;Decreased awareness of errors Insights: Decreased awareness of deficits Initiation: Requires cues for some Sequencing: Requires cues for some Cognition Comment: h/o dementia Objective Observation/Palpation Posture: Fair Observation: incontinent of urine, 2L O2 - okay to trial room air per RN, SpO2 85-97% on room air with mobility (RN made aware), IV site bleeding end of session and RN in room to address AROM RLE (degrees) RLE AROM: WFL AROM LLE (degrees) LLE AROM : WFL Strength RLE Comment: 4-/5 Strength LLE Comment: 4-/5 Sensation Overall Sensation Status: WFL(Denies numbness/tingling) Bed mobility Supine to Sit: Moderate assistance(modA to upright trunk with use of bed rail) Sit to Supine: Stand by assistance(Increased time to complete) Scooting: Moderate assistance;Maximal assistance(to EOB with Janes, maxA to HOB) Comment: Denies dizziness with postitonal changes. Transfers Sit to Stand: Minimal Assistance(to no device from EOB 2x with prolonged UE suport, to FWW from EOBwith cues for hand placement) Stand to sit: Minimal Assistance;Moderate Assistance(cues for improved proximity to surface prior to sitting, cues for use of FWW until near EOB prior to sitting) Comment: Denies dizziness in standing. Instability on initial stance noted. Ambulation Ambulation?: Yes More Ambulation?: Yes Ambulation 1 Surface: level tile Device: No Device Other Apparatus: (IV in tow by therapist) Assistance: Minimal assistance;Moderate assistance Quality of Gait: Pt demonstrates short reciprocal stepping pattern with B foot clearance, decreasedarm swing, lateral sway and path deviations noted and 2 LOB with modA to correct Distance: 25 ft x 1 Comments: Pt requires 25-50% assist for stabiltiy at this time without a device. Pts SpO2 decreasedto 86% with this tasks and ~1 minute seated rest with cues for pursed lip breathing to return to >92%. Ambulation 2 Surface - 2: level tile Device 2: Rolling Walker Other Apparatus 2: (IV in tow by therapist) Assistance 2: Minimal assistance;Contact guard assistance Quality of Gait 2: Pt demonstrates short reciprocal stepping pattern with B foot clearance, no trueLOB, slow prasanna Distance: 30 ft x 1 Comments: Pts SpO2 decreased to 85% with this task and returned to >92% within ~30 seconds. Pt educated on fall risks and SpO2 levels with mobility in relation to therapists recommendation for rehab prior to home going. Balance Posture: Fair Sitting - Static: Fair;+ Sitting - Dynamic: Fair Standing - Static: Poor;+ Standing - Dynamic: Poor Plan Plan Times per week: 5 visits Current Treatment Recommendations: Strengthening, Balance Training, Functional Mobility Training, Transfer Training, Endurance Training, Gait Training, Cognitive/Perceptual Training, Stair training, Neuromuscular Re-education, Cognitive Reorientation, Safety Education & Training, Patient/Caregiver Education & Training, Equipment Evaluation, Education, & procurement Plan Comment: Goals and/or treatment plan were established in collaboration with patient, OTR and RN. Safety Devices Type of devices: All fall risk precautions in place, Bed alarm in place, Call light within reach, Gait belt, Patient at risk for falls, Left in bed, Nurse notified(2L O2 donned) AM-PAC Score AM-[facility] Inpatient Mobility Raw Score : 13 (03/27/201335) AM-PAC Inpatient T-Scale Score : 36.74 (03/27/201335) Mobility Inpatient CMS 0-100% Score: 64.91 (03/27/201335) Mobility Inpatient CMS G-Code Modifier : CL (03/27/201335) AM-[facility] Mobility Inpatient How much difficulty turning over in bed?: A Little How much difficulty sitting down on / standing up from a chair with arms?: A Lot How much difficulty moving from lying on back to sitting on side of bed?: A Lot How much help from another person moving to and from a bed to a chair?: A Little How much help from another person needed to walk in hospital room?: A Lot How much help from another person for climbing 3-5 steps with a railing?: Total AM-[facility] Inpatient Mobility Raw Score : 13 AM-[facility] Inpatient T-Scale Score : 36.74 Mobility Inpatient CMS 0-100% Score: 64.91 Mobility Inpatient CMS G-Code Modifier : CL Goals Short term goals Time Frame for Short term goals: 5 visits Short term goal 1: Pt will complete bed mobility with mod I in order to improve independence with mobility. Short term goal 2: Pt will complete functional transfers with least restrictive assistive device and mod I in order to improve safety and prepare for ambulation. Short term goal 3: Pt will ambulate 100 ft with least restrictive assistive device and mod I in order to improve safety with gait. Short term goal 4: Pt will complete 2-3 sets / 10 reps LE exercises in order to improve strength and activity tolerance with mobility. Short term goal 5: Pt will maintain SpO2 > 92% with mobility in order to improve safety with functional tasks. Short term goal 6: Pt will complete 1 step with least restrictive assistive device and SBA in orderto enter/exit home with family. Patient Goals Patient goals : Pt states she wants to get home Therapy Time Individual Concurrent Group Co-treatment Time In 1132(co-eval with OT) Time Out 1157 Minutes 25 Timed Code Treatment Minutes: 10 Minutes(gait x 1) Cristine Ritter, PT * Josephine Reynolds - 03/27/2020 9:20 AM EDT Nutrition rescreen completed. Patient referred to the Dietitian. * Murtaza Buckley DO - 03/26/2020 11:59 AM EDT Hospitalist Progress Note 03/26/2020 11:59 AM [phone]: Please page me ([phone]) for patient care issues. [phone]: Please page [facility] night Hospitalist for any issues. Subjective: Admit Date: 03/25/2020 PCP: JONN KRISHNAMURTHY DO Room#: 465/4211 Follow up on patient admitted after midnight. Patient admitted for: 1. Human Rhinovirus/Enterovirus(+) 2. RLL CAP 3. Asthma 4. Dementia-undetermined type 5. Depression 6. DM2 7. HTN 8. 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 See orders. Murtaza Buckley DO Division of Hospitalist Medicine Inpatient Medical Services PAGER: [phone] * Carla Wan RN - 03/26/2020 12:40 AM EDT Sandeep Betancourt and Estefany Pereira are full-time caregivers and make all decisions regarding care. Placement and plan of care is to be discussed with them only. Jana and May are Pluma's other children and are not directly involved in day-to-day care but are able to receive updates regarding health status of hospitalization. documented in this encounterThere may be information available, but it has not been provided by the sender. Assessments Diagnosis Pneumonia due to organism Pneumonia due to other specified organism Febrile illness Fever, unspecified Altered mental status, unspecified altered mental status type Diagnosis Recurrent UTI (urinary tract infection)- Primary Urinary tract infection, site not specified Chief Complaint Chief Complaint Description Start Date right hip post right hip ope n reduction internal fixation with intertan nail on 02/17/2019 Preliminary chief co mplaint data, not yet signed by the author as of Instructions Instruction Description Start Date Patient advised to follow-up with Primary Care Physician for BMI management. Review of System There may be information available, but it has not been provided by the sender. Reason for Referral Specialty Diagnoses / Procedures Referred By Minh smith Referred To Contact Pain Management Diagnoses Generalized arthritis Procedures CONSULT TO PAIN MGT Jonn Krishnamurthy DO [address] [place] [address] Referral ID Status Reason Start Date Expiration Date Visits Requested Visits Authorized [id number] Ref Not Required PCP Requested Referral 01/27/2022 01/27/2023 1 1 Specialty Diagnoses / Procedures Referred By Minh smith Referred To Contact CT IMAGING Diagnoses Spinal stenosis of lumbar region with neurogenic claudication Procedures CT LUMBAR SPINE WO IVCON CT LUMBAR SPINE W/O CONTRAST MATERIAL Eder Pal MD [address] [place] [address] Ct Imaging Referral ID Status Reason Start Date Expiration Date Visits Requested Visits Authorized [id number] Pending Review Auto-Generat ed Referral 04/11/2022 05/11/2023 1 1 Specialty Diagnoses / Procedures Referred By Contac t Referred To Contact XR IMAGING Diagnoses Primary osteoarthritis of both hips Procedures XR HIP GENERAL 3V PELV/AP/LAT LEFT RADEX HIP UNILATERAL WITH PELVIS 2-3 VIEWS Eder Pal MD [address] [place] [address] Xr Imaging Referral ID Status Reason Start Date Expiration Date Visits Requested Visits Authorized [id number] Pending Review Auto-Generat ed Referral 04/11/2022 05/11/2023 1 1 Specialty Diagnoses / Procedures Referred By Contac t Referred To Contact XR IMAGING Diagnoses Primary osteoarthritis of both hips Procedures XR HIP GENERAL 3V PELV/AP/LAT RIGHT RADEX HIP UNILATERAL WITH PELVIS 2-3 VIEWS Eder Pal MD [address] [place] [address] Xr Imaging Referral ID Status Reason Start Date Expiration Date Visits Requested Visits Authorized [id number] Pending Review Auto-Generat ed Referral 04/11/2022 05/11/2023 1 1 Specialty Diagnoses / Procedures Referred By Contac t Referred To Contact XR IMAGING Diagnoses Lumbar spondylosis Procedures XR LUMBAR MOTION 4V AP/LAT/ FLEX/EXT RADEX SPINE LUMBOSACRAL MINIMUM 4 VIEWS Eder Pal MD [address] [place] [address] Xr Imaging Referral ID Status Reason Start Date Expiration Date Visits Requested Visits Authorized [id number] Pending Review Auto-Generat ed Referral 04/11/2022 05/11/2023 1 1 Specialty Diagnoses / Procedures Referred By Contac t Referred To Contact Orthopedics Diagnoses Primary osteoarthritis of right knee Procedures CONSULT TO ORTHOPAEDICS OFFICE/OUTPATIENT [facility] 60-74 MINUTES Eder Pal MD [address] [place] [address] Referral ID Status Reason Start Date Expiration Date Visits Requested Visits Authorized [id number] Authorized PCP Requested Referral 05/10/2022 05/10/2023 1 1 Specialty Diagnoses / Procedures Referred By Contac t Referred To Contact XR IMAGING Diagnoses Primary osteoarthritis of right knee Procedures XR KNEE 3V FLEX/LAT/MERCH RIGHT (AK) Eder Pal MD [address] [place] [address] Xr Imaging Referral ID Status Reason Start Date Expiration Date Visits Requested Visits Authorized [id number] Pending Review Auto-Generat ed Referral 05/10/2022 06/09/2023 1 1 Specialty Diagnoses / Procedures Referred By Contac t Referred To Contact Pain Management Diagnoses Primary osteoarthritis of both hips Lumbar spondylosis Primary osteoarthritis of right knee Procedures CONSULT TO PAIN MGT Akiko Krishnamurthyland Laura, [place] [address] Referral ID Status Reason Start Date Expiration Date Visits Requested Visits Authorized [id number] Ref Not Required PCP Requested Referral 11/09/2022 11/09/2023 1 1 Specialty Diagnoses / Procedures Referred By Contac t Referred To Contact Orthopedics Diagnoses Chronic pain of right ankle Procedures CONSULT TO ORTHOPAEDICS OFFICE/OUTPATIENT [facility] 60 MIN[address] [place], [place] [address] Referral ID Status Reason Start Date Expiration Date Visits Requested Visits Authorized [id number] Authorized PCP Requested Referral 11/24/2023 11/23/2024 1 1 Specialty Diagnoses / Procedures Referred By Contac t Referred To Contact Diagnoses Nausea and vomiting, unspecified vomiting type Jonn Krishnamurthy, [address] [address] Referral ID Status Reason Start Date Expiration Date Visits Re quested Visits Authorized [id number] Denied 1 1 Specialty Diagnoses / Procedures Referred By Contac t Referred To Contact Diagnoses Lumbar spondylosis Procedures CONSULT [facility] Akiko Krishnamurthyland Laura, DO [address] [place] [address] Referral ID Status Reason Start Date Expiration Date Visits Requested Visits Authorized [id number] Authorized PCP Requested Referral 04/19/2024 07/18/2024 1 1 Specialty Diagnoses / Procedures Referred By Contac t Referred To Contact MR IMAGING Diagnoses Lumbar spondylosis Spinal stenosis of lumbar region without neurogenic claudication Procedures MRI LUMBAR SPINE WO IVCON MRI SPINAL CANAL LUMBAR W/O CONTRAST MATERIAL Akiko Krishnamurthyland Laura, DO [address] [place] [address] Mr Imaging [facility] Referral ID Status Reason Start Date Expiration Date Visits Requested Visits Authorized [id number] New Request Auto-Generat ed Referral 04/19/2024 05/19/2025 1 1 Specialty Diagnoses / Procedures Referred By Contac t Referred To Contact MR IMAGING Diagnoses Spinal stenosis of cervical region Procedures MRI CERVICAL SPINE WO IVCON MRI SPINAL CANAL CERVICAL W/O CONTRAST John Mathur MD [address] [facility] [place] [address] [place] [address] Referral ID Status Reason Start Date Expiration Date Visits Requested Visits Authorized [id number] Authorized Auto-Generat ed Referral 05/29/2024 06/28/2025 1 1 Additional Source Comments INFORMATION SOURCE (unrecogn ized section and content) DATE CREATED AUTHOR 03/06/2019 [facility] DATE CREATED AUTHOR AUTHOR'S ORGANIZ ATION 03/31/2020 [facility] DATE CREATED AUTHOR AUTHOR'S ORGANIZ ATION 11/26/2024 [facility] DATE CREATED AUTHOR AUTHOR'S ORGANIZ ATION 12/08/2024 [facility] DATE CREATED AUTHOR AUTHOR'S ORGANIZ ATION 01/12/2025 [facility] DATE CREATED AUTHOR AUTHOR'S ORGANIZ ATION 03/14/2025 [facility] Reason for Visit (unrecogniz ed section and content) Reason Comments Altered Mental Status Shortness of Breath Cough Fever Reason Comments Orders order for urinalysis and culture Reason For Visit Description Start Date Postop - 1st visit Preliminary reason f or visit data, not yet signed by the author as of right hip post right hip ope n reduction internal fixation with intertan nail on 02/17/2019 Reason Onset Date Comments Refill Request Refill Request 12/13/2021 Reason Comments Medication Question Reason Comments Refill Request Reason Comments Diabetes Reason Comments Consult Consult to Pain Joceline gement Reason Comments New Patient Reason Comments Appointment Medication Problem Reason Comments Medication Problem Reason Comments Missed Appointment Reason Comments Hip Pain Low Back Pain Reason Comments Appointment Reason Comments Patient Question Reason Comments Rx Refills Reason Comments Refill Request needs appointment Reason Comments Orders Reason Onset Date Comments No Show 11/18/2022 No show Reason Comments No Show Missed # 2 Reason Comments Back Pain Ongoing. Was seeing pain management. Reason Comments Med Change Request Reason Comments Referral Request Appointment Reason Comments Difficulty Urinating Urinary Urgency Reason Comments Low Back Pain Mental Status Changes Urinary Frequency X 5 days Bleeding/Bruising Rectal bleeding in p ull up Reason Comments Ankle Pain right Hip Pain Right Diabetes Hyperlipidemia Nausea Requesting medicatio n for nausea. Burping and nausea after eating trouble sleeping Reason Comments Consult Consult to orthopaed ics, chronic pain of right ankle confirm [id number] Reason Comments Pain Bilat hip painFallen 3 times - ER visitsXrays completed - no fx Pain to ambulateOnly going from bed to chair - chair to bed Reason Comments New Specialty Diagnoses / Procedures Referred By Minh t Referred To Contact MR IMAGING Diagnoses Lumbar spondylosis Spinal stenosis of lumbar region without neurogenic claudication Procedures MRI LUMBAR SPINE WO IVCON MRI SPINAL CANAL LUMBAR W/O CONTRAST MATERIAL Jonn Krishnamurthy, [address] [place], [place] [id number] [place] [address] Referral ID Status Reason Start Date Expiration Date V isits Requested Visits Authorized [id number] Closed Auto-Generate d Referral 04/19/2024 05/19/2025 1 1 Reason Comments Pain /Difficult to get up out of bed Hips and low back pain - MRI 05/29Xrays in chart - neck and back Reason Comments Results Reason Comments Urinary Frequency Incontinence Bowel and urinary. X 1 week Hypertension Elevated Low Back Pain Spinal stenosis Follow Up After seeing neurolo gist Reason Comments No Show Reason Onset Date Comments Refill Request 07/10/2024 Reason Onset Date Comments Refill Request 09/12/2024 Reason Onset Date Comments Refill Request 10/13/2024 Reason Onset Date Comments Refill Request 11/07/2024 Reason Comments Vomiting Reason Comments Vomiting Diarrhea Specialty Diagnoses / Procedures Referred By Minh smith Referred To Contact Diagnoses Confusion Procedures . Julio Adams MD [address] [place] [address] Phone: tel: fax: [facility] Cardiac Progressive Care Unit [address] [place] [address] Phone: tel: Referral ID Status Reason Start Date Expiration Date Visits Re quested Visits Authorized [id number] 1 1 Reason Comments Patient Question Eliquis Reason Comments Home Care MD to follow Reason Comments Home Care Confirmation Call Reason Comments [facility], vomiting and failing kidneys. Daughter wanted To know. Reason Comments Home Care Med issues/ [employer] refe rral Reason Comments Home Care Reason Comments Home Care Update: Reason Comments Home Care Update, Discharge fr om Nursing today Reason Comments Handicap placard Reason Comments Hospital Follow Up [facility] -11/19/24. Then went to [facility] until Mid December. Memory Loss Hip Pain Left. Reason Onset Date Comments Population Health Navigation Outreach 03/10/2025 Scheduling Diabetic Management with Primary Care Source Comments (unrecognize d section and content) In the event this informatio n is protected by the Federal Confidentiality of Alcohol and Drug Abuse Patient Records regulations: The Federal rules restrict any use of the information to criminally investigate or prosecute any alcohol or drug abuse patient.[facility] HospitalIn the event this information is protected by the Federal Confidentiality of Alcohol and Drug Abuse Patient Records regulations: The Federal rules restrict any use of the information to criminally investigate or prosecute any alcohol or drug abuse patient.[facility] HospitalIn the event this information is protected by the Federal Confidentiality of Alcohol and Drug Abuse Patient Records regulations: The Federal rules restrict any use of the information to criminally investigate or prosecute any alcohol or drug abuse patient.[facility] HospitalIn the event this information is protected by the Federal Confidentiality of Alcohol and Drug Abuse Patient Records regulations: The Federal rules restrict any use of the information to criminally investigate or prosecute any alcohol or drug abuse patient.[facility] HospitalIn the event this information is protected by the Federal Confidentiality of Alcohol and Drug Abuse Patient Records regulations: The Federal rules restrict any use of the information to criminally investigate or prosecute any alcohol or drug abuse patient.[facility] HospitalIn the event this information is protected by the Federal Confidentiality of Alcohol and Drug Abuse Patient Records regulations: The Federal rules restrict any use of the information to criminally investigate or prosecute any alcohol or drug abuse patient.[facility] HospitalIn the event this information is protected by the Federal Confidentiality of Alcohol and Drug Abuse Patient Records regulations: The Federal rules restrict any use of the information to criminally investigate or prosecute any alcohol or drug abuse patient.[facility] HospitalIn the event this information is protected by the Federal Confidentiality of Alcohol and Drug Abuse Patient Records regulations: The Federal rules restrict any use of the information to criminally investigate or prosecute any alcohol or drug abuse patient.[facility] HospitalIn the event this information is protected by the Federal Confidentiality of Alcohol and Drug Abuse Patient Records regulations: The Federal rules restrict any use of the information to criminally investigate or prosecute any alcohol or drug abuse patient.[facility] HospitalIn the event this information is protected by the Federal Confidentiality of Alcohol and Drug Abuse Patient Records regulations: The Federal rules restrict any use of the information to criminally investigate or prosecute any alcohol or drug abuse patient.[facility] HospitalIn the event this information is protected by the Federal Confidentiality of Alcohol and Drug Abuse Patient Records regulations: The Federal rules restrict any use of the information to criminally investigate or prosecute any alcohol or drug abuse patient.[facility] HospitalIn the event this information is protected by the Federal Confidentiality of Alcohol and Drug Abuse Patient Records regulations: The Federal rules restrict any use of the information to criminally investigate or prosecute any alcohol or drug abuse patient.[facility] HospitalIn the event this information is protected by the Federal Confidentiality of Alcohol and Drug Abuse Patient Records regulations: The Federal rules restrict any use of the information to criminally investigate or prosecute any alcohol or drug abuse patient.[facility] HospitalIn the event this information is protected by the Federal Confidentiality of Alcohol and Drug Abuse Patient Records regulations: The Federal rules restrict any use of the information to criminally investigate or prosecute any alcohol or drug abuse patient.[facility] HospitalIn the event this information is protected by the Federal Confidentiality of Alcohol and Drug Abuse Patient Records regulations: The Federal rules restrict any use of the information to criminally investigate or prosecute any alcohol or drug abuse patient.[facility] HospitalIn the event this information is protected by the Federal Confidentiality of Alcohol and Drug Abuse Patient Records regulations: The Federal rules restrict any use of the information to criminally investigate or prosecute any alcohol or drug abuse patient.[facility] HospitalIn the event this information is protected by the Federal Confidentiality of Alcohol and Drug Abuse Patient Records regulations: The Federal rules restrict any use of the information to criminally investigate or prosecute any alcohol or drug abuse patient.[facility] HospitalIn the event this information is protected by the Federal Confidentiality of Alcohol and Drug Abuse Patient Records regulations: The Federal rules restrict any use of the information to criminally investigate or prosecute any alcohol or drug abuse patient.[facility] HospitalIn the event this information is protected by the Federal Confidentiality of Alcohol and Drug Abuse Patient Records regulations: The Federal rules restrict any use of the information to criminally investigate or prosecute any alcohol or drug abuse patient.[facility] HospitalIn the event this information is protected by the Federal Confidentiality of Alcohol and Drug Abuse Patient Records regulations: The Federal rules restrict any use of the information to criminally investigate or prosecute any alcohol or drug abuse patient.[facility] HospitalIn the event this information is protected by the Federal Confidentiality of Alcohol and Drug Abuse Patient Records regulations: The Federal rules restrict any use of the information to criminally investigate or prosecute any alcohol or drug abuse patient.[facility] HospitalIn the event this information is protected by the Federal Confidentiality of Alcohol and Drug Abuse Patient Records regulations: The Federal rules restrict any use of the information to criminally investigate or prosecute any alcohol or drug abuse patient.[facility] HospitalIn the event this information is protected by the Federal Confidentiality of Alcohol and Drug Abuse Patient Records regulations: The Federal rules restrict any use of the information to criminally investigate or prosecute any alcohol or drug abuse patient.[facility] HospitalIn the event this information is protected by the Federal Confidentiality of Alcohol and Drug Abuse Patient Records regulations: The Federal rules restrict any use of the information to criminally investigate or prosecute any alcohol or drug abuse patient.[facility] HospitalIn the event this information is protected by the Federal Confidentiality of Alcohol and Drug Abuse Patient Records regulations: The Federal rules restrict any use of the information to criminally investigate or prosecute any alcohol or drug abuse patient.[facility] the event this information is protected by the Federal Confidentiality of Alcohol and Drug Abuse Patient Records regulations: The Federal rules restrict any use of the information to criminally investigate or prosecute any alcohol or drug abuse patient.[facility] HospitalIn the event this information is protected by the Federal Confidentiality of Alcohol and Drug Abuse Patient Records regulations: The Federal rules restrict any use of the information to criminally investigate or prosecute any alcohol or drug abuse patient.[facility] HospitalIn the event this information is protected by the Federal Confidentiality of Alcohol and Drug Abuse Patient Records regulations: The Federal rules restrict any use of the information to criminally investigate or prosecute any alcohol or drug abuse patient.[facility] HospitalIn the event this information is protected by the Federal Confidentiality of Alcohol and Drug Abuse Patient Records regulations: The Federal rules restrict any use of the information to criminally investigate or prosecute any alcohol or drug abuse patient.[facility] HospitalIn the event this information is protected by the Federal Confidentiality of Alcohol and Drug Abuse Patient Records regulations: The Federal rules restrict any use of the information to criminally investigate or prosecute any alcohol or drug abuse patient.[facility] HospitalIn the event this information is protected by the Federal Confidentiality of Alcohol and Drug Abuse Patient Records regulations: The Federal rules restrict any use of the information to criminally investigate or prosecute any alcohol or drug abuse patient.[facility] HospitalIn the event this information is protected by the Federal Confidentiality of Alcohol and Drug Abuse Patient Records regulations: The Federal rules restrict any use of the information to criminally investigate or prosecute any alcohol or drug abuse patient.[facility] HospitalIn the event this information is protected by the Federal Confidentiality of Alcohol and Drug Abuse Patient Records regulations: The Federal rules restrict any use of the information to criminally investigate or prosecute any alcohol or drug abuse patient.[facility] HospitalIn the event this information is protected by the Federal Confidentiality of Alcohol and Drug Abuse Patient Records regulations: The Federal rules restrict any use of the information to criminally investigate or prosecute any alcohol or drug abuse patient.[facility] HospitalIn the event this information is protected by the Federal Confidentiality of Alcohol and Drug Abuse Patient Records regulations: The Federal rules restrict any use of the information to criminally investigate or prosecute any alcohol or drug abuse patient.[facility] HospitalIn the event this information is protected by the Federal Confidentiality of Alcohol and Drug Abuse Patient Records regulations: The Federal rules restrict any use of the information to criminally investigate or prosecute any alcohol or drug abuse patient.[facility] HospitalIn the event this information is protected by the Federal Confidentiality of Alcohol and Drug Abuse Patient Records regulations: The Federal rules restrict any use of the information to criminally investigate or prosecute any alcohol or drug abuse patient.[facility] HospitalIn the event this information is protected by the Federal Confidentiality of Alcohol and Drug Abuse Patient Records regulations: The Federal rules restrict any use of the information to criminally investigate or prosecute any alcohol or drug abuse patient.[facility] HospitalIn the event this information is protected by the Federal Confidentiality of Alcohol and Drug Abuse Patient Records regulations: The Federal rules restrict any use of the information to criminally investigate or prosecute any alcohol or drug abuse patient.[facility] HospitalIn the event this information is protected by the Federal Confidentiality of Alcohol and Drug Abuse Patient Records regulations: The Federal rules restrict any use of the information to criminally investigate or prosecute any alcohol or drug abuse patient.[facility] HospitalIn the event this information is protected by the Federal Confidentiality of Alcohol and Drug Abuse Patient Records regulations: The Federal rules restrict any use of the information to criminally investigate or prosecute any alcohol or drug abuse patient.[facility] HospitalIn the event this information is protected by the Federal Confidentiality of Alcohol and Drug Abuse Patient Records regulations: The Federal rules restrict any use of the information to criminally investigate or prosecute any alcohol or drug abuse patient.[facility] HospitalIn the event this information is protected by the Federal Confidentiality of Alcohol and Drug Abuse Patient Records regulations: The Federal rules restrict any use of the information to criminally investigate or prosecute any alcohol or drug abuse patient.[facility] HospitalIn the event this information is protected by the Federal Confidentiality of Alcohol and Drug Abuse Patient Records regulations: The Federal rules restrict any use of the information to criminally investigate or prosecute any alcohol or drug abuse patient.[facility] HospitalIn the event this information is protected by the Federal Confidentiality of Alcohol and Drug Abuse Patient Records regulations: The Federal rules restrict any use of the information to criminally investigate or prosecute any alcohol or drug abuse patient.[facility] HospitalIn the event this information is protected by the Federal Confidentiality of Alcohol and Drug Abuse Patient Records regulations: The Federal rules restrict any use of the information to criminally investigate or prosecute any alcohol or drug abuse patient.[facility] HospitalIn the event this information is protected by the Federal Confidentiality of Alcohol and Drug Abuse Patient Records regulations: The Federal rules restrict any use of the information to criminally investigate or prosecute any alcohol or drug abuse patient.[facility] HospitalIn the event this information is protected by the Federal Confidentiality of Alcohol and Drug Abuse Patient Records regulations: The Federal rules restrict any use of the information to criminally investigate or prosecute any alcohol or drug abuse patient.[facility] HospitalIn the event this information is protected by the Federal Confidentiality of Alcohol and Drug Abuse Patient Records regulations: The Federal rules restrict any use of the information to criminally investigate or prosecute any alcohol or drug abuse patient.[facility] HospitalIn the event this information is protected by the Federal Confidentiality of Alcohol and Drug Abuse Patient Records regulations: The Federal rules restrict any use of the information to criminally investigate or prosecute any alcohol or drug abuse patient.[facility] HospitalIn the event this information is protected by the Federal Confidentiality of Alcohol and Drug Abuse Patient Records regulations: The Federal rules restrict any use of the information to criminally investigate or prosecute any alcohol or drug abuse patient.[facility] HospitalIn the event this information is protected by the Federal Confidentiality of Alcohol and Drug Abuse Patient Records regulations: The Federal rules restrict any use of the information to criminally investigate or prosecute any alcohol or drug abuse patient.[facility] HospitalIn the event this information is protected by the Federal Confidentiality of Alcohol and Drug Abuse Patient Records regulations: The Federal rules restrict any use of the information to criminally investigate or prosecute any alcohol or drug abuse patient.[facility] HospitalIn the event this information is protected by the Federal Confidentiality of Alcohol and Drug Abuse Patient Records regulations: The Federal rules restrict any use of the information to criminally investigate or prosecute any alcohol or drug abuse patient.[facility] HospitalIn the event this information is protected by the Federal Confidentiality of Alcohol and Drug Abuse Patient Records regulations: The Federal rules restrict any use of the information to criminally investigate or prosecute any alcohol or drug abuse patient.[facility] HospitalIn the event this information is protected by the Federal Confidentiality of Alcohol and Drug Abuse Patient Records regulations: The Federal rules restrict any use of the information to criminally investigate or prosecute any alcohol or drug abuse patient.[facility] HospitalIn the event this information is protected by the Federal Confidentiality of Alcohol and Drug Abuse Patient Records regulations: The Federal rules restrict any use of the information to criminally investigate or prosecute any alcohol or drug abuse patient.[facility] HospitalIn the event this information is protected by the Federal Confidentiality of Alcohol and Drug Abuse Patient Records regulations: The Federal rules restrict any use of the information to criminally investigate or prosecute any alcohol or drug abuse patient.[facility] HospitalIn the event this information is protected by the Federal Confidentiality of Alcohol and Drug Abuse Patient Records regulations: The Federal rules restrict any use of the information to criminally investigate or prosecute any alcohol or drug abuse patient.[facility] HospitalIn the event this information is protected by the Federal Confidentiality of Alcohol and Drug Abuse Patient Records regulations: The Federal rules restrict any use of the information to criminally investigate or prosecute any alcohol or drug abuse patient.[facility] HospitalIn the event this information is protected by the Federal Confidentiality of Alcohol and Drug Abuse Patient Records regulations: The Federal rules restrict any use of the information to criminally investigate or prosecute any alcohol or drug abuse patient.[facility] HospitalIn the event this information is protected by the Federal Confidentiality of Alcohol and Drug Abuse Patient Records regulations: The Federal rules restrict any use of the information to criminally investigate or prosecute any alcohol or drug abuse patient.[facility] HospitalIn the event this information is protected by the Federal Confidentiality of Alcohol and Drug Abuse Patient Records regulations: The Federal rules restrict any use of the information to criminally investigate or prosecute any alcohol or drug abuse patient.[facility] HospitalIn the event this information is protected by the Federal Confidentiality of Alcohol and Drug Abuse Patient Records regulations: The Federal rules restrict any use of the information to criminally investigate or prosecute any alcohol or drug abuse patient.[facility] HospitalIn the event this information is protected by the Federal Confidentiality of Alcohol and Drug Abuse Patient Records regulations: The Federal rules restrict any use of the information to criminally investigate or prosecute any alcohol or drug abuse patient.[facility] HospitalIn the event this information is protected by the Federal Confidentiality of Alcohol and Drug Abuse Patient Records regulations: The Federal rules restrict any use of the information to criminally investigate or prosecute any alcohol or drug abuse patient.[facility] HospitalIn the event this information is protected by the Federal Confidentiality of Alcohol and Drug Abuse Patient Records regulations: The Federal rules restrict any use of the information to criminally investigate or prosecute any alcohol or drug abuse patient.[facility] HospitalIn the event this information is protected by the Federal Confidentiality of Alcohol and Drug Abuse Patient Records regulations: The Federal rules restrict any use of the information to criminally investigate or prosecute any alcohol or drug abuse patient.[facility] HospitalIn the event this information is protected by the Federal Confidentiality of Alcohol and Drug Abuse Patient Records regulations: The Federal rules restrict any use of the information to criminally investigate or prosecute any alcohol or drug abuse patient.[facility] HospitalIn the event this information is protected by the Federal Confidentiality of Alcohol and Drug Abuse Patient Records regulations: The Federal rules restrict any use of the information to criminally investigate or prosecute any alcohol or drug abuse patient.[facility] HospitalIn the event this information is protected by the Federal Confidentiality of Alcohol and Drug Abuse Patient Records regulations: The Federal rules restrict any use of the information to criminally investigate or prosecute any alcohol or drug abuse patient.[facility] HospitalIn the event this information is protected by the Federal Confidentiality of Alcohol and Drug Abuse Patient Records regulations: The Federal rules restrict any use of the information to criminally investigate or prosecute any alcohol or drug abuse patient.[facility] HospitalIn the event this information is protected by the Federal Confidentiality of Alcohol and Drug Abuse Patient Records regulations: The Federal rules restrict any use of the information to criminally investigate or prosecute any alcohol or drug abuse patient.[facility] HospitalIn the event this information is protected by the Federal Confidentiality of Alcohol and Drug Abuse Patient Records regulations: The Federal rules restrict any use of the information to criminally investigate or prosecute any alcohol or drug abuse patient.[facility] HospitalIn the event this information is protected by the Federal Confidentiality of Alcohol and Drug Abuse Patient Records regulations: The Federal rules restrict any use of the information to criminally investigate or prosecute any alcohol or drug abuse patient.[facility] the event this information is protected by the Federal Confidentiality of Alcohol and Drug Abuse Patient Records regulations: The Federal rules restrict any use of the information to criminally investigate or prosecute any alcohol or drug abuse patient.[facility] HospitalIn the event this information is protected by the Federal Confidentiality of Alcohol and Drug Abuse Patient Records regulations: The Federal rules restrict any use of the information to criminally investigate or prosecute any alcohol or drug abuse patient.[facility] HospitalIn the event this information is protected by the Federal Confidentiality of Alcohol and Drug Abuse Patient Records regulations: The Federal rules restrict any use of the information to criminally investigate or prosecute any alcohol or drug abuse patient.[facility] HospitalIn the event this information is protected by the Federal Confidentiality of Alcohol and Drug Abuse Patient Records regulations: The Federal rules restrict any use of the information to criminally investigate or prosecute any alcohol or drug abuse patient.[facility] HospitalIn the event this information is protected by the Federal Confidentiality of Alcohol and Drug Abuse Patient Records regulations: The Federal rules restrict any use of the information to criminally investigate or prosecute any alcohol or drug abuse patient.[facility] HospitalIn the event this information is protected by the Federal Confidentiality of Alcohol and Drug Abuse Patient Records regulations: The Federal rules restrict any use of the information to criminally investigate or prosecute any alcohol or drug abuse patient.[facility] HospitalIn the event this information is protected by the Federal Confidentiality of Alcohol and Drug Abuse Patient Records regulations: The Federal rules restrict any use of the information to criminally investigate or prosecute any alcohol or drug abuse patient.[facility] HospitalIn the event this information is protected by the Federal Confidentiality of Alcohol and Drug Abuse Patient Records regulations: The Federal rules restrict any use of the information to criminally investigate or prosecute any alcohol or drug abuse patient.[facility] HospitalIn the event this information is protected by the Federal Confidentiality of Alcohol and Drug Abuse Patient Records regulations: The Federal rules restrict any use of the information to criminally investigate or prosecute any alcohol or drug abuse patient.[facility] HospitalIn the event this information is protected by the Federal Confidentiality of Alcohol and Drug Abuse Patient Records regulations: The Federal rules restrict any use of the information to criminally investigate or prosecute any alcohol or drug abuse patient.[facility] HospitalIn the event this information is protected by the Federal Confidentiality of Alcohol and Drug Abuse Patient Records regulations: The Federal rules restrict any use of the information to criminally investigate or prosecute any alcohol or drug abuse patient.[facility] HospitalIn the event this information is protected by the Federal Confidentiality of Alcohol and Drug Abuse Patient Records regulations: The Federal rules restrict any use of the information to criminally investigate or prosecute any alcohol or drug abuse patient.[facility] HospitalIn the event this information is protected by the Federal Confidentiality of Alcohol and Drug Abuse Patient Records regulations: The Federal rules restrict any use of the information to criminally investigate or prosecute any alcohol or drug abuse patient.[facility] HospitalIn the event this information is protected by the Federal Confidentiality of Alcohol and Drug Abuse Patient Records regulations: The Federal rules restrict any use of the information to criminally investigate or prosecute any alcohol or drug abuse patient.[facility] HospitalIn the event this information is protected by the Federal Confidentiality of Alcohol and Drug Abuse Patient Records regulations: The Federal rules restrict any use of the information to criminally investigate or prosecute any alcohol or drug abuse patient.[facility] HospitalIn the event this information is protected by the Federal Confidentiality of Alcohol and Drug Abuse Patient Records regulations: The Federal rules restrict any use of the information to criminally investigate or prosecute any alcohol or drug abuse patient.[facility] HospitalIn the event this information is protected by the Federal Confidentiality of Alcohol and Drug Abuse Patient Records regulations: The Federal rules restrict any use of the information to criminally investigate or prosecute any alcohol or drug abuse patient.[facility] HospitalIn the event this information is protected by the Federal Confidentiality of Alcohol and Drug Abuse Patient Records regulations: The Federal rules restrict any use of the information to criminally investigate or prosecute any alcohol or drug abuse patient.[facility] HospitalIn the event this information is protected by the Federal Confidentiality of Alcohol and Drug Abuse Patient Records regulations: The Federal rules restrict any use of the information to criminally investigate or prosecute any alcohol or drug abuse patient.[facility] HospitalIn the event this information is protected by the Federal Confidentiality of Alcohol and Drug Abuse Patient Records regulations: The Federal rules restrict any use of the information to criminally investigate or prosecute any alcohol or drug abuse patient.[facility] HospitalIn the event this information is protected by the Federal Confidentiality of Alcohol and Drug Abuse Patient Records regulations: The Federal rules restrict any use of the information to criminally investigate or prosecute any alcohol or drug abuse patient.[facility] HospitalIn the event this information is protected by the Federal Confidentiality of Alcohol and Drug Abuse Patient Records regulations: The Federal rules restrict any use of the information to criminally investigate or prosecute any alcohol or drug abuse patient.[facility] Telephone Encounter - Jaz Dawkins - 07/17/2020 2:48 PM ESTTelephone Encounter - Judy Grant - 07/17/2020 1:44 PM EST Miscellaneous Notes (unrecog nized section and content) Left message on Saba's secure voicemail that he signed the orders for the UA and culture. And they are in epic and if she needs them faxed somewhere to give us a call. Saba from [facility] called. She is requesting orders for UA and culture. Please file pending orders. documented in this encounter Care Teams (unrecognized sec tion and content) Finisher Map And Chart Relationship Specialty Start Date End Date Jonn Krishnamurthy, DO [address] [place] [address] PCP - General Family Practice 07/29/20 Finisher Map And Chart Relationship Specialty Start Date End Date Jonn Krishnamurthy, DO [address] [place] [address] PCP - General Family Practice 07/29/20 Finisher Map And Chart Relationship Specialty Start Date End Date Jonn Krishnamurthy, DO [address] [place] [address] PCP - General Family Practice 07/29/20 Finisher Map And Chart Relationship Specialty Start Date End Date Jonn Krishnamurthy, DO [address] [place] [address] PCP - General Family Practice 07/29/20 Finisher Map And Chart Relationship Specialty Start Date End Date Jonn Krishnamurthy, DO [address] [place] [address] PCP - General Family Practice 07/29/20 Finisher Map And Chart Relationship Specialty Start Date End Date Jonn Krishnamurthy, DO [address] [place] [address] PCP - General Family Practice 07/29/20 Finisher Map And Chart Relationship Specialty Start Date End Date Jonn Krishnamurthy, DO [address] [place] [address] PCP - General Family Practice 07/29/20 Finisher Map And Chart Relationship Specialty Start Date End Date Jonn Krishnamurthy DO [address] [place] [address] PCP - General Family Practice 07/29/20 Finisher Map And Chart Relationship Specialty Start Date End Date Jonn Krishnamurthy, DO [address] [place] [address] PCP - General Family Practice 07/29/20 Finisher Map And Chart Relationship Specialty Start Date End Date Jonn Krishnamurthy, DO [address] [place] [address] PCP - General Family Practice 07/29/20 Finisher Map And Chart Relationship Specialty Start Date End Date Jonn Krishnamurthy, DO [address] [place] [address] PCP - General Family Practice 07/29/20 Finisher Map And Chart Relationship Specialty Start Date End Date Jonn Krishnamurthy, DO [address] [place] [address] PCP - General Family Medicine 07/29/20 Finisher Map And Chart Relationship Specialty Start Date End Date Jonn Krishnamurthy, DO [address] [place] [address] PCP - General Family Medicine 07/29/20 Finisher Map And Chart Relationship Specialty Start Date End Date Jonn Krishnamurthy, DO [address] [place] [address] PCP - General Family Medicine 07/29/20 Finisher Map And Chart Relationship Specialty Start Date End Date Jonn Krishnamurthy, DO [address] [place] [address] PCP - General Family Medicine 07/29/20 Finisher Map And Chart Relationship Specialty Start Date End Date Jonn Krishnamurthy, DO [address] [place] [address] PCP - General Family Medicine 07/29/20 Finisher Map And Chart Relationship Specialty Start Date End Date Jonn Krishnamurthy, DO [address] [place] [address] PCP - General Family Medicine 07/29/20 Finisher Map And Chart Relationship Specialty Start Date End Date Jonn Krishnamurthy, DO [address] [place] [address] PCP - General Family Medicine 07/29/20 Finisher Map And Chart Relationship Specialty Start Date End Date Jonn Krishnamurthy, DO [address] [place] [address] PCP - General Family Medicine 07/29/20 Finisher Map And Chart Relationship Specialty Start Date End Date Jonn Krishnamurthy, DO [address] [place] [address] PCP - General Family Medicine 07/29/20 Finisher Map And Chart Relationship Specialty Start Date End Date Jonn Krishnamurthy, DO [address] [place] [address] PCP - General Family Medicine 07/29/20 Finisher Map And Chart Relationship Specialty Start Date End Date Jonn Krishnamurthy, DO [address] [place] [address] PCP - General Family Medicine 07/29/20 Finisher Map And Chart Relationship Specialty Start Date End Date Jonn Krishnamurthy, DO [address] [place] [address] PCP - General Family Medicine 07/29/20 Finisher Map And Chart Relationship Specialty Start Date End Date Jonn Krishnamurthy DO [address] [place] [address] PCP - General Family Medicine 07/29/20 Finisher Map And Chart Relationship Specialty Start Date End Date Jonn Krishnamurthy DO [address] [place] [address] PCP - General Family Medicine 07/29/20 Finisher Map And Chart Relationship Specialty Start Date End Date Jonn Krishnamurthy DO PCP - General Family Medicine 07/29/20 Finisher Map And Chart Relationship Specialty Start Date End Date Jonn Krishnamurthy DO PCP - General Family Medicine 07/29/20 Finisher Map And Chart Relationship Specialty Start Date End Date Jonn Krishnamurthy DO PCP - General Family Medicine 07/29/20 Finisher Map And Chart Relationship Specialty Start Date End Date Jonn Krishnamurthy DO PCP - General Family Medicine 07/29/20 Finisher Map And Chart Relationship Specialty Start Date End Date Jonn Krishnamurthy DO PCP - General Family Medicine 07/29/20 Finisher Map And Chart Relationship Specialty Start Date End Date Jonn Krishnamurthy DO PCP - General Family Medicine 07/29/20 Finisher Map And Chart Relationship Specialty Start Date End Date Jonn Krishnamurthy DO PCP - General Family Medicine 07/29/20 Finisher Map And Chart Relationship Specialty Start Date End Date Jonn Krishnamurthy DO PCP - General Family Medicine 07/29/20 Finisher Map And Chart Relationship Specialty Start Date End Date Jonn Krishnamurthy DO PCP - General Family Medicine 07/29/20 Finisher Map And Chart Relationship Specialty Start Date End Date Jonn Krishnamurthy DO PCP - General Family Medicine 07/29/20 Finisher Map And Chart Relationship Specialty Start Date End Date Jonn Krishnamurthy DO PCP - General Family Medicine 07/29/20 Finisher Map And Chart Relationship Specialty Start Date End Date Jonn Krishnamurthy DO PCP - General Family Medicine 07/29/20 Finisher Map And Chart Relationship Specialty Start Date End Date Jonn Krishnamurthy DO PCP - General Family Medicine 07/29/20 Finisher Map And Chart Relationship Specialty Start Date End Date Jonn Krishnamurthy DO PCP - General Family Medicine 07/29/20 Finisher Map And Chart Relationship Specialty Start Date End Date Jonn Krishnamurthy DO PCP - General Family Medicine 07/29/20 Finisher Map And Chart Relationship Specialty Start Date End Date Jonn Krishnamurthy DO PCP - General Family Medicine 07/29/20 Finisher Map And Chart Relationship Specialty Start Date End Date Jonn Krishnamurthy DO PCP - General Family Medicine 07/29/20 Finisher Map And Chart Relationship Specialty Start Date End Date Jonn Krishnamurthy DO PCP - General Family Medicine 07/29/20 Finisher Map And Chart Relationship Specialty Start Date End Date Jonn Krishnamurthy DO PCP - General Family Medicine 07/29/20 Finisher Map And Chart Relationship Specialty Start Date End Date Jonn Krishnamurthy DO PCP - General Family Medicine 07/29/20 Finisher Map And Chart Relationship Specialty Start Date End Date Jonn Krishnamurthy DO PCP - General Family Medicine 07/29/20 Finisher Map And Chart Relationship Specialty Start Date End Date Jonn Krishnamurthy DO PCP - General Family Medicine 07/29/20 Finisher Map And Chart Relationship Specialty Start Date End Date Jonn Krishnamurthy DO PCP - General Family Medicine 07/29/20 Finisher Map And Chart Relationship Specialty Start Date End Date Jonn Krishnamurthy DO PCP - General Family Medicine 07/29/20 Finisher Map And Chart Relationship Specialty Start Date End Date Jonn Krishnamurthy DO PCP - General Family Medicine 07/29/20 Finisher Map And Chart Relationship Specialty Start Date End Date Jonn Krishnamurthy DO [address] [place] [address] PCP - General 02/02/19 Finisher Map And Chart Relationship Specialty Start Date End Date Jonn Krishnamurthy DO PCP - General Family Medicine 07/29/20 Gerardo Paulson CNP [address] [place] [address] Referring Internal Medicine 12/02/24 Jonn Krishnamurthy DO [address] [place] [address] Home Care Provider Family Medicine 12/04/24 Finisher Map And Chart Relationship Specialty Start Date End Date Jonn Krishnamurthy DO PCP - General Family Medicine 07/29/20 Gerardo Paulson CNP [address] [place], [place] [id number] Referring Internal Medicine 12/02/24 Jonn Krishnamurthy DO [address] [place] [address] [phone] Home Care Provider Family Medicine 12/04/24 Finisher Map And Chart Relationship Specialty Start Date End Date Jonn Krishnamurthy DO PCP - General Family Medicine 07/29/20 Gerardo Paulson CNP [address] [place], [place] [phone] Referring Internal Medicine 12/02/24 Jonn Krishnamurthy DO [address] [place] [address] [id number] [phone] Home Care Provider Family Medicine 12/04/24 Brayan De Anda, BAKARI [address] [place] [address] Burr Machine Operator Post Acute Care 12/04/24 Finisher Map And Chart Relationship Specialty Start Date End Date Jonn Krishnamurthy DO PCP - General Family Medicine 07/29/20 Gerardo Paulson CNP [address] [place], [place] [phone] Referring Internal Medicine 12/02/24 Jonn Krishnamurthy DO [address] [place] [address] [phone] Home Care Provider Family Medicine 12/04/24 Brayan De Anda RN [address] [place], [place] [id number] Burr Machine Operator Post Acute Care 12/04/24 Finisher Map And Chart Relationship Specialty Start Date End Date Jonn Krishnamurthy DO PCP - General Family Medicine 07/29/20 Gerardo Paulson, LEAH [address] [place], [place] [phone] Referring Internal Medicine 12/02/24 Jonn Krishnamurthy [address] [place] [address] Home Care Provider Family Medicine 12/04/24 Brayan DeA nda RN [address] [place], [place] [phone] Burr Machine Operator Post Acute Care 12/04/24 Finisher Map And Chart Relationship Specialty Start Date End Date Jonn Krishnamurthy DO PCP - General Family Medicine 07/29/20 Gerardo Paulson, PHARMACIST ASSISTANT [address] [place], [place] [phone] Referring Internal Medicine 12/02/24 Jonn Krishnamurthy [address] [place] [address] Home Care Provider Family Medicine 12/04/24 Brayan De Anda RN [address] [place], [place] [address] Burr Machine Operator Post Acute Care 12/04/24 Finisher Map And Chart Relationship Specialty Start Date End Date Jonn Krishnamurthy DO PCP - General Family Medicine 07/29/20 Gerardo Paulson CNP [address] [place], [place] [phone] Referring Internal Medicine 12/02/24 Jonn Krishnamurthy DO [address] [place] [address] Home Care Provider Family Medicine 12/04/24 Brayan De Anda, RN [address] [place], [place] [phone] Burr Machine Operator Post Acute Care 12/04/24 Finisher Map And Chart Relationship Specialty Start Date End Date Jonn Krishnamurthy DO PCP - General Family Medicine 07/29/20 Gerardo Paulson CNP [address] [place], [place] [phone] Referring Internal Medicine 12/02/24 Jonn Krishnamurthy DO [address] [place] [address] Home Care Provider Family Medicine 12/04/24 Brayan De Anda, BAKARI [address] [place], [place] [phone] Burr Machine Operator Post Acute Care 12/04/24 Finisher Map And Chart Relationship Specialty Start Date End Date Jonn Krishnamurthy DO PCP - General Family Medicine 07/29/20 Gerardo Paulson CNP [address] [place], [place] [phone] Referring Internal Medicine 12/02/24 Jonn Krishnamurthy DO [address] [place] [address] Home Care Provider Family Medicine 12/04/24 Brayan De Anda RN [address] [place], [place] [phone] Burr Machine Operator Post Acute Care 12/04/24 Finisher Map And Chart Relationship Specialty Start Date End Date Jonn Krishnamurthy DO PCP - General Family Medicine 07/29/20 Gerardo Paulson, LEAH [address] [place], [place] [phone] Referring Internal Medicine 12/02/24 Jonn Krishnamurthy DO [address] [place] [address] Home Care Provider Family Medicine 12/04/24 Brayan De Anda RN [address] [place], [place] [phone] Burr Machine Operator Post Acute Care 12/04/24 Finisher Map And Chart Relationship Specialty Start Date End Date Jonn Krishnamurthy DO PCP - General Family Medicine 07/29/20 Gerardo Paulson CNP [address] [place] [address] Referring Internal Medicine 12/02/24 Jonn Krishnamurthy DO [address] [place] [address] Home Care Provider Family Medicine 12/04/24 Brayan De Anda RN [address] [place], [place] [phone] Burr Machine Operator Post Acute Care 12/04/24 Finisher Map And Chart Relationship Specialty Start Date End Date Jonn Krishnamurthy DO PCP - General Family Medicine 07/29/20 Gerardo Paulson CNP [address] [place] [address] Referring Internal Medicine 12/02/24 Jonn Krishnamurthy DO [address] [place] [address] Home Care Provider Family Medicine 12/04/24 Vivi Peoples, PT [address] [place] [address] Burr Machine Operator Physical Therapy 12/26/24 Finisher Map And Chart Relationship Specialty Start Date End Date Jonn Krishnamurthy DO PCP - General Family Medicine 07/29/20 Gerardo Paulson CNP [address] [place] [address] Referring Internal Medicine 12/02/24 Jonn Krishnamurthy, [address] [place] [address] Home Care Provider Family Medicine 12/04/24 Finisher Map And Chart Relationship Specialty Start Date End Date Jonn Krishnamurthy DO PCP - General Family Medicine 07/29/20 Gerardo Paulson CNP [address] [place] [address] Referring Internal Medicine 12/02/24 Jonn Krishnamurthy DO [address] [place] [address] Home Care Provider Family Medicine 12/04/24 Finisher Map And Chart Relationship Specialty Start Date End Date Jonn Krishnamurthy DO PCP - General Family Medicine 07/29/20 Gerardo Paulson CNP [address] [place] [address] Referring Internal Medicine 12/02/24 Jonn Krishnamurthy DO [address] [place] [address] Home Care Provider Family Medicine 12/04/24 Administered Medications Administered Medications (un recognized section and content) Medication Order MAR Action Action Date Dose Rate Site tuberculin skin test, unspecified formulation Given 04/18/2018 0.1 ml tuberculin skin test, unspecified formulation Given 04/25/2018 0.1 ml Scheduled Active and Recently Administ ered Medications (unrecognized section and content) Medication Order 11/17/2024 11/18/2024 11/19/2024 apixaban (Eliquis) tablet 5 mg 5 mg, Oral, Daily, First dose on Mon11/19/24 at 0900, Anticoagulant 1200 (Not Given - Provider: Mae Tipton RN - Reason: Medication not available - Comment: waiting for pharmacy verification) 0817 (Given - Provider: Mae Tipton RN) cefTRIAXone (Rocephin) 1,000 mg in sodium chloride 0.9 % 50 mL IVPB Mini-Bag Plus (COMPLETED) 1,000 mg, IntraVENous, at 100 mL/hr, Administer over 30 Minutes, Every 24 hours, First dose on Mon11/15/24 at 1800, For 3 days, Mini-Bag Plus bag, Suspected Indication (Select all that apply): Pneumonia (CAP) 0 (New Bag - Provider: May Clancy RN)190 (Stopped - Provider: Dayanna Betancourt, RN) gabapentin (Neurontin) capsule 200 mg 200 mg, Oral, 2 times daily, First dose on Mon11/12/24 at 2145 0900 (Given - Provider: May Clancy RN)2128 (Given - Provider: Dayanna Betancourt, RN) 0850 (Given - Provider: Mae Tipton, BAKARI)2000 (Given - Provider: Umu Hugo RN) 0817 (Given - Provider: Mae Tipton RN) insulin glargine (Lantus) injection 18 Units 18 Units, SubCUTAneous, Nightly, First dose on Mon11/12/24 at 2145 2131 (Given - Provider: Dayanna Betancourt RN) 2100 (Not Given - Provider: Umu Hugo, RN - Reason: Patient/family refused) Insulin Lispro (Humalog) injection 0-12 Units(Linked Group 1) 0-12 Units, SubCUTAneous, 3 times daily with meals, First dose on Mon11/12/24 at 0800, Medium Dose Correction Algorithm Glucose: Dose: LESS than 150 No Insulin 150-199 2 Units 200-249 4 Units 250-299 6 Units 300-349 8 Units 350-400 10 Units Above 400 12 Units 0800 (Not Given - Provider: May Clancy RN - Reason: Order parameters not met)1222 (Given - Provider: May Clancy RN)1828 (Given - Provider: May Clancy RN) 0851 (Given - Provider: Mae Tipton RN)1207 (Given - Provider: Mae Tipton RN)1700 (Not Given - Provider: Mae Tipton RN - Reason: Order parameters not met) 0817 (Given - Provider: Mae Tipton RN)1200 (Canceled Entry - Provider: Automatic Discharge Provider - Comment: Automatically canceled at discontinue of medication order) Insulin Lispro (Humalog) injection 0-12 Units(Linked Group 1) 0-12 Units, SubCUTAneous, Nightly, First dose on Mon11/12/24 at 0115, If eating or bolus tube feeding: Medium Dose Correction Algorithm Glucose: Dose: LESS than 150 No Insulin 150-199 2 Units 200-249 4 Units 250-299 6 Units 300-349 8 Units 350-400 10 Units Above 400 12 Units 2133 (Given - Provider: Dayanna Betancourt RN) 2000 (Given - Provider: Umu Hugo, RN) Insulin Lispro (Humalog) injection 14 Units 14 Units, SubCUTAneous, 3 times daily with meals, First dose on Mon11/13/24 at 0800 0935 (Not Given - Provider: May Clancy RN - Reason: Order parameters not met)1222 (Given - Provider: May Clancy RN)1828 (Given - Provider: May Clancy RN) 0851 (Given - Provider: Mae Tipton RN)1206 (Given - Provider: Mae Tipton RN)1700 (Not Given - Provider: Mae Tipton RN - Reason: Patient/family refused) 0817 (Given - Provider: Mae Tipton RN)1200 (Canceled Entry - Provider: Automatic Discharge Provider - Comment: Automatically canceled at discontinue of medication order) lisinopril tablet 20 mg 20 mg, Oral, Daily, First dose on Mon11/13/24 at 0900 0935 (Given - Provider: May Clancy RN) 0851 (Given - Provider: Mae Tipton RN) 0817 (Given - Provider: Mae Tipton RN) metoprolol succinate XL (Toprol-XL) 24 hr tablet 50 mg 50 mg, Oral, Daily, First dose on Mon11/13/24 at 0900, Do not crush or chew. 0935 (Given - Provider: May Clancy RN) 0851 (Given - Provider: Mae Tipton RN) 0817 (Given - Provider: Mae Tipton RN) mirtazapine (Remeron) tablet 45 mg 45 mg, Oral, Nightly, First dose on Mon11/12/24 at 2145 2129 (Given - Provider: Dayanna Betancourt RN) 2000 (Given - Provider: Umu Hugo, BAKARI) pantoprazole (ProtoNix) 40 mg in sodium chloride (PF) 0.9 % 10 mL injection(Linked Group 2) 40 mg, IntraVENous, Administer over 2 Minutes, Daily before breakfast, First dose on Mon11/13/24 at 0600, Give only if unable to tolerate po. 0557 (See Alternative - Provider: Dayanna Betancourt RN) 0616 (Given - Provider: Dayanna Betancourt RN) 0602 (See Alternative - Provider: Umu Hugo, BAKARI) pantoprazole (ProtoNix) EC tablet 40 mg(Linked Group 2) 40 mg, Oral, Daily before breakfast, First dose on Mon11/13/24 at 0600, Do not crush, chew, or split. 0557 (Not Given - Provider: Dayanna Betancourt RN - Reason: Patient/family refused) 0616 (See Alternative - Provider: Dayanna Betancourt RN) 0602 (Given - Provider: Umu Hugo RN) PRN Medication Order 11/17/2024 11/18/2024 11/19/2024 acetaminophen (Tylenol) suppository 650 mg(Linked Group 3) 650 mg, Rectal, Every 6 hours PRN, fever, For temp greater than 100.4 F (38 C), Starting on Mon11/11/24 at 2308, Administer if oral route cannot be used. Maximum dose of acetaminophen is 4000 mg from all sources in 24 hours. acetaminophen (Tylenol) tablet 650 mg(Linked Group 3) 650 mg, Oral, Every 6 hours PRN, mild pain (1-3), fever, For temp greater than 100.4 F (38 C), Starting on Mon11/11/24 at 2308, Maximum dose of acetaminophen is 4000 mg from all sources in 24 hours. dextrose 5 % infusion 100 mL/hr, IntraVENous, PRN, Blood sugar less than 70mg/dL, Starting on Mon11/12/24 at 0102, Start infusion following administration of dextrose 50% or glucagon. dextrose 50 % solution 12.5 g 12.5 g, IntraVENous, PRN, low blood sugar, Blood glucose less than 70 mg/dL and patient NOT ALERT or NPO., Starting on Mon11/12/24 at 0102, If patient does not respond within 5 minutes, repeat dose x1. Start D5W at 100 mL/hour until ordering provider can be reached. Repeat blood glucose in 15 minutes. If blood glucose is less than 70 mg/dL, repeat treatment and recheck blood glucose in 15 minutes x2. If using Glucostabilizer, dose as instructed per system. glucagon (human recombinant) injection 1 mg 1 mg, IntraMUSCular, PRN, low blood sugar, Blood glucose less than 70 mg/dL and patient NOT ALERT or NPO and does not have IV access., Starting on Mon11/12/24 at 0102, After administration, attempt intravenous access and start D5W at 100 mL/hr. Repeat blood glucose in 15 minutes x2 and notify provider. glucose oral gel 15 g 15 g, Oral, As needed, low blood sugar, Starting on Mon11/12/24 at 0102, If blood glucose less than 50 mg/dL and patient ALERT and NOT NPO, give 2 tubes glucose gel. If blood glucose less than 70 mg/dL and patient ALERT and NOT NPO, give 1 tube glucose gel. Repeat blood glucose in 15 minutes. If blood glucose is less than 70 mg/dL, repeat treatment and recheck blood glucose in 15 minutes x2 and notify provider. hydrALAZINE (Apresoline) injection 5 mg 5 mg, IntraVENous, Every 4 hours PRN, high blood pressure, sbp greater than 160, Starting on Grace 11/14/24 at 0341 ipratropium-albuterol (Duo-Neb) 0.5-2.5 mg/3 mL nebulizer solution 3 mL 3 mL, Nebulization, 2 times daily PRN, shortness of breath, Starting on Mon11/12/24 at 2131 ondansetron (Zofran) injection 4 mg(Linked Group 4) 4 mg, IntraVENous, Every 6 hours PRN, nausea, vomiting, Starting on Mon11/11/24 at 2308, 1st Line. Give IV if patient is unable to take orally. If inadequate response within 60 minutes, proceed to next-line agent or contact provider if no further options ordered. ondansetron ODT (Zofran-ODT) disintegrating tablet 4 mg(Linked Group 4) 4 mg, Oral, Every 8 hours PRN, nausea, vomiting, Starting on Mon11/11/24 at 2308, 1st Line. If inadequate response within 60 minutes, proceed to next-line agent or contact provider if no further options ordered. Patient should allow tablet to dissolve on tongue. Do not remove from blister pack until just before administering. polyethylene glycol (PEG) 3350 (Miralax) packet 17 g 17 g, Oral, Daily PRN, constipation, Starting on Mon11/11/24 at 2308, 1st line for treatment of constipation - give scheduled if no bowel movement in past 24 hours. Linked Groups Order Group 1: Insulin Lispro (Humalog) injection 0-12 UnitsJump to med 0-12 Units, SubCUTAneous, 3 times daily with meals, First dose on Mon11/12/24 at 0800, Medium Dose Correction Algorithm Glucose: Dose: LESS than 150 No Insulin 150-199 2 Units 200-249 4 Units 250-299 6 Units 300-349 8 Units 350-400 10 Units Above 400 12 Units And Insulin Lispro (Humalog) injection 0-12 UnitsJump to med 0-12 Units, SubCUTAneous, Nightly, First dose on Mon11/12/24 at 0115, If eating or bolus tube feeding: Medium Dose Correction Algorithm Glucose: Dose: LESS than 150 No Insulin 150-199 2 Units 200-249 4 Units 250-299 6 Units 300-349 8 Units 350-400 10 Units Above 400 12 Units Group 2: pantoprazole (ProtoNix) EC tablet 40 mgJump to med 40 mg, Oral, Daily before breakfast, First dose on Mon11/13/24 at 0600, Do not crush, chew, or split. Or pantoprazole (ProtoNix) 40 mg in sodium chloride (PF) 0.9 % 10 mL injectionJump to med 40 mg, IntraVENous, Administer over 2 Minutes, Daily before breakfast, First dose on Mon11/13/24 at 0600, Give only if unable to tolerate po. Group 3: acetaminophen (Tylenol) tablet 650 mgJump to med 650 mg, Oral, Every 6 hours PRN, mild pain (1-3), fever, For temp greater than 100.4 F (38 C), Starting on Mon11/11/24 at 2308, Maximum dose of acetaminophen is 4000 mg from all sources in 24 hours. Or acetaminophen (Tylenol) suppository 650 mgJump to med 650 mg, Rectal, Every 6 hours PRN, fever, For temp greater than 100.4 F (38 C), Starting on Mon11/11/24 at 2308, Administer if oral route cannot be used. Maximum dose of acetaminophen is 4000 mg from all sources in 24 hours. Group 4: ondansetron ODT (Zofran-ODT) disintegrating tablet 4 mgJump to med 4 mg, Oral, Every 8 hours PRN, nausea, vomiting, Starting on Mon11/11/24 at 2308, 1st Line. If inadequate response within 60 minutes, proceed to next-line agent or contact provider if no further options ordered. Patient should allow tablet to dissolve on tongue. Do not remove from blister pack until just before administering. Or ondansetron (Zofran) injection 4 mgJump to med 4 mg, IntraVENous, Every 6 hours PRN, nausea, vomiting, Starting on Mon11/11/24 at 2308, 1st Line. Give IV if patient is unable to take orally. If inadequate response within 60 minutes, proceed to next-line agent or contact provider if no further options ordered. FOR RECORDS PERTAINING TO PATIENTS WHO ARE OR HAVE BEEN ENROLLED IN A CHEMICAL DEPENDENCY/SUBSTANCEABUSE PROGRAM, SOME INFORMATION MAY BE OMITTED. This clinical summary was aggregated from multiple sources. Caution should be exercised in using it in the provision of clinical care. This summary normalizes information from multiple sources, and as a consequence, information in this document may materially change the coding, format and clinical context of patient data. In addition, data may be omitted in some cases. CLINICAL DECISIONS SHOULD BE BASED ON THE PRIMARY CLINICAL RECORDS. [facility] [employer] [facility]. provides no warranty or guarantee of the accuracy or completeness of information in this document.
[2025-05-01 00:27] LABS: Hematocrit 35.0 % (37-47); Hemoglobin 11.0 g/dL (12.0-15.0); Immature Granulocytes Count 0.040 X10^3/uL (0.0-0.0); Mean Corp Hgb Conc 31.4 g/dL (32-36); Mean Corpuscular Volume 73.4 fL (81-99); Mean Platelet Vol. 10.6 fl (6.2-12.0); NRBC Flagged by Analyzer 0 % (0-5); POSITIVE MORPHOLOGY YES; Platelet Count 227 K/mm3 (150-450); RBC Distribution Width CV 20.2 % (11.6-14.6); RBC Distribution Width SD 53.0 fl (35.1-43.9); Red Blood Count 4.77 M/mm3 (4.2-5.4); White Blood Count 8.4 K/mm3 (4.4-11.0)
[2025-05-01 00:29] LABS: Differential Indicated SCAN CRITERIA MET
[2025-05-01] MEDS: TENECTEPLASE 2520 MG IV (00:32)
[2025-05-01] MEDS: 0.9% Saline Lock 10 ML Syringe IV ×2 (00:35→00:36)
[2025-05-01 00:36] LABS: Partial Thromboplast Time 24.2 Seconds (24.1-36.2); Prothrombin Time (Protime)PT. 13.2 SECONDS (11.7-14.9)
[2025-05-01] MEDS: 0.9% Normal Saline (1000mL) 1,000 ML 100 ML IV (00:43)
[2025-05-01 00:45] LABS: Anion Gap 13 (5-15); BUN 29 mg/dL (4-19); BUN/Creat Ratio 24.5 RATIO (10-20); Calcium,Total 8.8 mg/dL (7.6-11.0); Carbon Dioxide 22.1 mmol/L (21.0-32.0); Chloride 99 mmol/L (98-108); Estimated Creatinine Clearance 31.95 ml/min (50-250); Glucose 198 mg/dL (70-99); Potassium 4.3 mmol/L (3.3-5.1); Troponin T High Sensitivity 22 ng/L (<=14)
[2025-05-01 01:09] LABS: Differential Comment SCANNED; Reactive Lymphocyte RARE
[2025-05-01 01:10] LABS: Anisocytosis 2+; Microcytosis 1+; Red Cell Morphology N CHROM NORMAL (NORM C&C)
== END 2025-05-01 01:20 | disposition short-term general hospital (02) ==
PROVIDERS: Emergency Provider Emergency Medicine; PCP Family Medicine; Visit Provider Emergency Medicine
DX: I63.9 Cerebral infarction, unspecified (principal); I48.91 Unspecified atrial fibrillation; E11.9 Type 2 diabetes mellitus without complications; Z79.4 Long term (current) use of insulin; K21.9 Gastro-esophageal reflux disease without esophagitis; I10 Essential (primary) hypertension; R29.714 NIHSS score 14; Z87.891 Personal history of nicotine dependence; Z90.49 Acquired absence of other specified parts of digestive tract; Z96.659 Presence of unspecified artificial knee joint; Z79.899 Other long term (current) drug therapy; Z86.59 Personal history of other mental and behavioral disorders
CPT/HCPCS: 51702; 70450; 70496; 70498; 80048; 84484; 85025; 85610; 85730; 93005; 99285; J3101; Q9967; A4216